=== PATIENT | male | born 1935 | race Caucasian/White ===

== ENCOUNTER 2017-10-15 11:53 | Emergency (ER) | payer MEDICARE, BC ==
[2017-10-15] MEDS ORDERED: MINERAL OIL 133 ML ENEMA RECTAL STA (13:42)
[2017-10-15] MEDS ORDERED: MAGNESIUM CITRATE 296 ML BOTTLE PO ONE (13:43)
[2017-10-15] MEDS ORDERED: DOCUSATE 100 MG CAP PO STA (13:43)
--- NOTE | 2017-10-15 13:47 | ED ---
Abdominal Pain HPI - General Chief Complaint: Abdominal Pain Stated Complaint: CONSTIPATION Time Seen by Provider: 10/15/17 13:37 Source: patient Mode of arrival: wheelchair Limitations: no limitations - History of Present Illness Initial Comments: This 81-year-old white male presents with a complaint of constipation. He states that he has not had a bowel movement in the past one week. He was discharged from the hospital approximately one week after being admitted for a urinary tract infection. He states that he is only passed a small martha of stool since that time. He has tried some Senokot without relief. He also tried a suppository without relief. He complains of pain in his perirectal area. He denies any abdominal pain. He has not been eating as much due to the constipation. He denies any fever, chills, nausea, vomiting. No other complaints or modifying factors. - Related Data Home Medications Medication Instructions Recorded Confirmed Levothyroxine Sodium [Synthroid] 100 mcg PO DAILY 02/21/15 10/15/17 Hydrocortisone [Cortef] 10 mg PO DAILY@1400 07/27/17 10/15/17 Hydrocortisone [Cortef] 20 mg PO QAM 07/27/17 10/15/17 Cranberry Fruit Concentrate 450 mg PO TID 08/28/17 10/15/17 [Cranberry] L.acidoph,Paracasei, B.lactis 1 cap PO DAILY 08/28/17 10/15/17 [Probiotic] Allergies Allergy/AdvReac Type Severity Reaction Status Date / Time No Known Allergies Allergy Verified 10/15/17 14:09 Review of Systems ROS Statement: Those systems with pertinent positive or pertinent negative responses have been documented in the HPI. ROS Other: All systems not noted in ROS Statement are negative. Past Medical History Past Medical History: Cancer, Thyroid Disorder Additional Past Medical History / Comment(s): prostate CA, hypothyroidism. prostate cancer dx 40yrs ago. History of Any Multi-Drug Resistant Organisms: None Reported, Other MDRO Past Surgical History: No Surgical Hx Reported Past Anesthesia/Blood Transfusion Reactions: No Reported Reaction Past Psychological History: No Psychological Hx Reported Smoking Status: Former smoker Past Alcohol Use History: None Reported Past Drug Use History: None Reported - Past Family History Father Family Medical History: Cancer Additional Family Medical History / Comment(s): Colon CA, at 74. Mother Family Medical History: No Reported History, CVA/TIA General Exam - General Exam Comments Initial Comments: GENERAL: The patient is well nourished and well hydrated. VITAL SIGNS: Heart rate, blood pressure, respiratory rate reviewed as recorded in nurse's notes. EYES: Pupils are round and reactive. Extraocular movements are intact. No conjunctival / lid redness or swelling. ENT: No external evidence of injury, swelling, or ecchymosis. Airway is patent. Throat is clear. NECK: Nontender. No swelling or evidence of injury. No subcutaneous emphysema. Trachea is midline. No thyroid mass. HEART: Regular rate and rhythm. Good peripheral pulses. LUNGS/CHEST: Breath sounds clear and equal bilaterally. No rales, rhonchi, or wheezes. No ecchymosis, subcutaneous emphysema, or tenderness. ABDOMEN: Abdomen soft without tenderness. No palpable masses or organomegaly. No peritoneal signs. No abdominal wall swelling or ecchymosis. EXTREMITIES: No extremity tenderness. Normal muscle tone and function. No thoracolumbar tenderness. NEUROLOGIC: Sensation is grossly intact. Cranial nerve exam reveals face is symmetrical, tongue is midline, speech is clear. SKIN: No abrasions or ecchymosis is noted. No induration or masses noted. PSYCHIATRIC: Alert and oriented. Appropriate behavior and judgment. Limitations: no limitations Course Vital Signs 10/15/17 12:08 Temperature 97.8 F Pulse Rate 69 Respiratory 18 Rate Blood Pressure 107/55 O2 Sat by Pulse 95 Oximetry Medical Decision Making - Medical Decision Making The patient was seen and examined. All diagnostics were reviewed. He did receive some magnesium citrate, and Colace orally as well as mineral oil enema. The x-ray showed significant evidence of constipation. The patient did not have any production of stool initially and therefore he was disimpacted by myself. A moderate amount of stool was removed. He also received a milk of molasses enema and then passed a large bowel movement and feels remarkably better. He is counseled regarding constipation in detail and leaves in no identifiable distress. Disposition Clinical Impression: Constipation Disposition: HOME SELF-CARE Condition: Good Instructions: Constipation (ED), High Fiber Diet (ED) Additional Instructions: Please use Metamucil and MiraLAX daily. Referrals: Vanessa Oneill MD [Primary Care Provider] - 1-2 days Time of Disposition: 17:07
--- NOTE | 2017-10-15 14:40 | XR ---
EXAMINATION TYPE: XR KUB DATE OF EXAM: 10/15/2017 COMPARISON: 10/02/2017 HISTORY: Constipation TECHNIQUE: One view abdominal series FINDINGS: The osseous structures are intact. The bowel gas pattern is nonspecific. Air is seen through the lar ge and small bowel loops in a nonspecific pattern with a single prominent small bowel loop in the rig ht abdomen. Arthropathy of the hips noted. Sclerosis of the pubic symphysis and degenerative change of the spine. Retained fecal debris throughout the colon. IMPRESSION: 1. Nonspecific abdomen. Retained fecal debris throughout the colon, correlate for constipation. Sing le prominent small bowel loop in the right abdomen may been the basis of a localized ileus or enterit is. Partial obstruction not entirely excluded correlate clinically.
[2017-10-15 17:22] VITALS: BP 109/59; PULSE 78; RESP 16; TEMP 98
[2017-10-15] MEDS ORDERED: ONDANSETRON 4 MG/2 ML VIAL IVP STA (17:40)
[2017-10-15] MEDS ORDERED: SODIUM CHLORIDE 0.9% 500 ML IV STA (17:40)
[2017-10-15] MEDS ORDERED: SODIUM CHLORIDE 0.9% 1,000 ML IV STA (17:40)
[2017-10-15] MEDS ORDERED: ONDANSETRON 4 MG ODT STARTER PACK 2 TAB BTL PO STA (18:02)
== END 2017-10-15 18:16 | disposition home or self-care (01) ==
LOC: EC 11:53
DX: K59.00 Constipation, unspecified (principal); R11.2 Nausea with vomiting, unspecified; E03.9 Hypothyroidism, unspecified; Z85.46 Personal history of malignant neoplasm of prostate; Z87.891 Personal history of nicotine dependence; Z79.899 Other long term (current) drug therapy
CPT/HCPCS: 74018; 99284; S0119

== ENCOUNTER → 2017-12-07 | Outpatient (CLI) | payer MEDICARE, BC ==
--- NOTE | 2017-12-07 15:35 | US ---
EXAMINATION TYPE: US kidneys/renal and bladder DATE OF EXAM: 12/07/2017 COMPARISON: US 10/01/2017, CT 10/02/2017 CLINICAL HISTORY: R93.4 Abnormal findings on diagnostic imaging of. History of hydronephrosis EXAM MEASUREMENTS: Right Kidney: 10.2 x 5.5 x 4.9 cm Left Kidney: 11.2 x 5.3 x 4.6 cm Right Kidney: No hydronephrosis or masses seen Left Kidney: Mild amount of hydronephrosis visualized. Cystic area visualized measuring 0.6 cm. This appeared simple on the previous examination. Hydronephrosis was present previously and appears unchan ged. Bladder: wnl as visualized, not fully distended Bilateral Jets seen: No, bladder not distended IMPRESSION: 1. Mild stable left hydronephrosis. 2. Subcentimeter cortical renal cyst too small to classify as simple.
== END | disposition home or self-care (01) ==
LOC: RADUSWWP 13:53
PROVIDERS: ATTEND Urology
DX: N13.30 Unspecified hydronephrosis (principal); N28.1 Cyst of kidney, acquired
CPT/HCPCS: 76770

== ENCOUNTER → 2017-12-18 | Outpatient (CLI) | payer MEDICARE, BC ==
--- NOTE | 2017-12-18 14:39 | CT ---
EXAMINATION TYPE: CT abdomen pelvis wo con DATE OF EXAM: 12/18/2017 COMPARISON: 10/02/2017 and 08/05/2016. HISTORY: Patient complains of difficulty urinating. CT DLP: 744.3 mGycm Automated exposure control for dose reduction was used. TECHNIQUE: Helical acquisition of images was performed from the lung bases through the pelvis. FINDINGS: LUNG BASES: Calcific pleural plaquing is seen along the right hemidiaphragm at the lung base. LIVER/GB: The liver is diffusely hypoattenuated approaching criteria for hepatic steatosis. No focal hepatic lesion is identified. Gallbladder is unremarkable. PANCREAS: Pancreas demonstrates moderate pancreatic parenchymal atrophy with no ductal dilatation and a solitary punctate calcification of the tail possibly from prior pancreatitis. SPLEEN: No significant abnormality is seen. ADRENALS: No nodularity or thickening. KIDNEYS: There is a left-sided extrarenal pelvis. No evidence of hydronephrosis. Mild nonspecific per inephric fat stranding is unchanged from the prior. FREE AIR: No free air is visualized ADENOPATHY: No greater than 1 cm short axis lymph nodes are seen within the abdomen or pelvis. REPRODUCTIVE ORGANS: Prostate gland is significantly atrophic or surgically absent despite nonvisuali zation of surgical clips in the pelvis. URINARY BLADDER: The previously seen urinary bladder wall thickening and surrounding inflammatory ch juan hip resolved in the interim. Urinary bladder is incompletely distended. OSSEOUS STRUCTURES: There is redemonstration of grade 2 anterolisthesis of L5 on S1 secondary to cole ateral pars intraarticularis defects. Moderate multilevel degenerative changes of the visualized thor acolumbar spine are noted. There is also sclerosis of the left pubic bone and bilateral iliac bones a t the sacroiliac joints as well as the left sacroiliac that are all nonspecific findings. BOWEL: There are a few scattered colonic diverticula without pericolonic fat stranding. No evidence of dilated bowel to suggest obstruction. Appendix is air-filled and within normal limits of size. Sma ll bowel is also nondilated with no focal thickening.. OTHER: Moderate calcific atheromatous changes of the abdominal aorta and its branches are identified. IMPRESSION: 1. RESOLUTION OF THE PREVIOUSLY SEEN URINARY BLADDER WALL THICKENING AND SURROUNDING INFLAMMATORY RUPALI NGE. NO DISCRETE URINARY BLADDER ABNORMALITY. NO HYDRONEPHROSIS, URETERAL CALCULUS OR NEPHROLITHIASIS . NO LOCAL ADENOPATHY. 2. NONSPECIFIC SCLEROTIC LESIONS OF THE LEFT PUBIC BONE AND SACROILIAC JOINTS ARE FAVORED TO BE DEGEN ERATIVE IN NATURE THEY ARE UNCHANGED FROM THE EXAM OF 08/05/2016.
== END | disposition home or self-care (01) ==
LOC: RADCTMAIN 12:21
PROVIDERS: ATTEND Urology
DX: N32.89 Other specified disorders of bladder (principal)
CPT/HCPCS: 74176

== ENCOUNTER 2018-02-14 15:13 | Emergency (ER) | payer MEDICARE, BC ==
[2018-02-14 15:21] VITALS: RESP 18; TEMP 97.7
[2018-02-14] MEDS ORDERED: SODIUM CHLORIDE 0.9% 1,000 ML IV STA (16:02)
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
[2018-02-14 16:56] LABS: Basophils % (A) 0 %; Eosinophils # (A) 0.1 k/uL (0-0.7); Eosinophils % (A) 2 %; HCT 36.5 % (39.0-53.0); HGB 12.3 gm/dL (13.0-17.5); Lymphocytes # (A) 1.3 k/uL (1.0-4.8); Lymphocytes % (A) 21 %; MCH 32.7 pg (25.0-35.0); MCHC 33.6 g/dL (31.0-37.0); MCV 97.3 fL (80.0-100.0); Mean Platelet Volume 6.5; Monocytes # (A) 0.4 k/uL (0-1.0); Monocytes % (A) 6 %; Neutrophils # (A) 4.3 k/uL (1.3-7.7); Neutrophils % (A) 69 %; Platelet Count 187 k/uL (150-450); RBC 3.75 m/uL (4.30-5.90); RDW 12.9 % (11.5-15.5); WBC 6.3 k/uL (3.8-10.6)
[2018-02-14 17:00] LABS: Appearance,Urine Cloudy (Clear); Bilirubin,Urine Negative (Negative); Blood,Urine Moderate (Negative); Color,Urine Yellow; Glucose,Urine (UA) Negative (Negative); Ketones,Urine Negative (Negative); Leukocyte Esterase,Urine Large (Negative); Mucus,Urine Rare /hpf; Nitrite,Urine Negative (Negative); PH, Urine 5.5 (5.0-8.0); Protein,Urine Trace (Negative); RBC,Urine 47 /hpf (0-5); Specific Gravity,Urine 1.011 (1.001-1.035); Urobilinogen,Urine <2.0 mg/dL (<2.0); WBC,Urine >182 /hpf (0-5)
[2018-02-14 17:06] LABS: Albumin 3.7 g/dL (3.5-5.0); Calcium 8.6 mg/dL (8.4-10.2); Magnesium 2.1 mg/dL (1.6-2.3); Phosphorus 3.3 mg/dL (2.5-4.5); Potassium 4.7 mmol/L (3.5-5.1); Total Bilirubin 0.2 mg/dL (0.2-1.3); Total Protein 6.4 g/dL (6.3-8.2)
[2018-02-14 17:09] LABS: D-Dimer 0.54 mg/L FEU (<0.60); Partial Thromboplastin Time 24.4 sec (22.0-30.0); Prothrombin Time 10.1 sec (9.0-12.0)
[2018-02-14 17:15] LABS: Creatine Kinase <20 U/L (55-170)
[2018-02-14 17:28] LABS: Creatine Kinase MB <0.2 ng/mL (0.0-2.4); Troponin I <0.012 ng/mL (0.000-0.034)
[2018-02-14] MEDS ORDERED: cefTRIAXone 2,000 MG in SODIUM CHLORIDE 0.9% 100 ML IVPB STA (17:51)
[2018-02-14] MEDS ORDERED: cefTRIAXone IN SWFI 2,000 MG/20 ML SYRINGE IVP STA (17:52)
[2018-02-14 19:06] VITALS: BP 140/63; PULSE 61
== END 2018-02-14 19:04 | disposition home or self-care (01) ==
LOC: EC 15:13
DX: N39.0 Urinary tract infection, site not specified (principal); R55 Syncope and collapse; E86.0 Dehydration; E03.9 Hypothyroidism, unspecified; Z87.891 Personal history of nicotine dependence; Z79.52 Long term (current) use of systemic steroids; Z79.899 Other long term (current) drug therapy; Z82.3 Family history of stroke
CPT/HCPCS: 36415; 93005; 85379; 80053; 82550; 82553; 83735; 84100; 84484; 85025; 85610; 85730; 81001; 87086; 99284; 96374; 96361; J0696

== ENCOUNTER 2018-03-18 19:22 | Inpatient (IN) | payer MEDICARE, BC ==
--- NOTE | 2018-03-18 20:07 | ED ---
General Adult HPI - General Chief complaint: Recheck/Abnormal Lab/Rx Stated complaint: weakness/fever Time Seen by Provider: 03/18/18 19:50 Source: patient, family, EMS, RN notes reviewed Mode of arrival: EMS Limitations: no limitations - History of Present Illness Initial comments: This is an 82-year-old male with history of recurrent UTIs who presents to the emergency department with chief complaint of fever. Patient is accompanied by his who contributes to history. states that throughout the day today patient was drowsy and slept in his chair for most of the day. She states that she got him up to use the bathroom and he seemed weak. He then had 1 episode of vomiting. She states that she checked his temperature and it was 101.7. She reports a history of chronic urinary tract infection. Patient is seen by Dr. Paredes and Dr. Akins for this. Patient's previous urine culture grew pseudomonas for which the doctors did not recommend oral antibiotic treatment. Patient has not been treated for the urinary tract infection with antibiotics for quite some time. Patient states that he has chronic urinating difficulties and must self cath twice a day. At this time, patient denies any symptoms. Tonight's chest pain shortness of breath, abdominal pain, nausea or vomiting, diarrhea or constipation, weakness or numbness. - Related Data Home Medications Medication Instructions Recorded Confirmed Hydrocortisone [Cortef] 10 mg PO DAILY@1400 07/27/17 03/18/18 Hydrocortisone [Cortef] 20 mg PO QAM 07/27/17 03/18/18 Cranberry Fruit Concentrate 1,350 mg PO DAILY 08/28/17 03/18/18 [Cranberry] Levothyroxine Sodium [Synthroid] 125 mcg PO DAILY 03/18/18 03/18/18 Methenamine/Sodium Salicylate 1 tab PO DAILY 03/18/18 03/18/18 [Cystex Tablet] Vit C/E/Zn/Coppr/Lutein/Zeaxan 1 cap PO BID 03/18/18 03/18/18 [Preservision Areds 2 Softgel] Allergies Allergy/AdvReac Type Severity Reaction Status Date / Time No Known Allergies Allergy Verified 03/18/18 19:55 Review of Systems ROS Statement: Those systems with pertinent positive or pertinent negative responses have been documented in the HPI. ROS Other: All systems not noted in ROS Statement are negative. Past Medical History Past Medical History: Cancer, Thyroid Disorder Additional Past Medical History / Comment(s): prostate CA, hypothyroidism. prostate cancer dx 40yrs ago. History of Any Multi-Drug Resistant Organisms: Other MDRO Past Surgical History: No Surgical Hx Reported Past Anesthesia/Blood Transfusion Reactions: No Reported Reaction Past Psychological History: No Psychological Hx Reported Smoking Status: Former smoker Past Alcohol Use History: None Reported Past Drug Use History: None Reported - Past Family History Father Family Medical History: Cancer Additional Family Medical History / Comment(s): Colon CA, at 74. Mother Family Medical History: No Reported History, CVA/TIA General Exam - General Exam Comments Initial Comments: General: Awake and alert, well-developed; in no apparent distress. is at bedside. HEENT: Head atraumatic, normocephalic. Pupils are equal, round and reactive to light. Extraocular movements intact. Oropharynx moist without erythema or exudate. Neck: Supple. Normal ROM. Cardiovascular: Regular rate and rhythm. No murmurs, rubs or gallops. Chest symmetrical. Respiratory: Lungs clear to auscultation bilaterally. No wheezes, rales or rhonchi. Normal respiratory effort with no use of accessory muscles. Abdomen: Soft, non-tender, non-distended. No rigidity, rebound or guarding. Normal bowel sounds in all 4 quadrants. Musculoskeletal: Normal ROM, no tenderness bilateral upper and lower extremities. Ambulating normally. Skin: [place], warm and dry without rashes or lesions. Neurological: Alert and oriented x3. CN II-XII grossly intact. Speech is fluent and answers are appropriate. No focal neuro deficits. Psychiatric: Normal mood and affect. No overt signs of depression or anxiety noted. Limitations: no limitations Course Vital Signs 03/18/18 03/18/18 03/18/18 19:27 20:46 22:41 Temperature 99.5 F 101.6 F H 100.1 F H Pulse Rate 79 74 70 Respiratory 18 18 18 Rate Blood Pressure 145/65 150/63 117/55 O2 Sat by Pulse 95 93 L 94 L Oximetry Medical Decision Making - Medical Decision Making This is an 82-year-old male with history of recurrent, chronic urinary tract infections who presents to the emergency department with chief complaint of fever. Patient spiked a fever 102 today. He does have a history of prostate cancer and does perform self caths twice daily. CBC and CMP are unremarkable. UA revealed many bacteria, high white blood cell and white blood cell count. Patient started on Zosyn as this was shown to be susceptible to pseudomonas that was cultured in patient's previous urine culture in February. Patient is in agreement for admission. He will be admitted to Dr. Gunn with consult Dr. Akins. Vital signs are stable and patient is in acute distress. - Lab Data Result diagrams: 03/18/18 20:32 03/18/18 20:32 Lab Results 03/18/18 03/18/18 03/18/18 Range/Units 20:32 20:32 20:32 WBC 8.7 (3.8-10.6) k/uL RBC 3.61 L (4.30-5.90) m/uL Hgb 11.7 L (13.0-17.5) gm/dL Hct 34.6 L (39.0-53.0) % MCV 95.9 (80.0-100.0) fL MCH 32.6 (25.0-35.0) pg MCHC 34.0 (31.0-37.0) g/dL RDW 12.9 (11.5-15.5) % Plt Count 159 (150-450) k/uL Neutrophils % 76 % Lymphocytes % 16 % Monocytes % 7 % Eosinophils % 1 % Basophils % 0 % Neutrophils # 6.5 (1.3-7.7) k/uL Lymphocytes # 1.4 (1.0-4.8) k/uL Monocytes # 0.6 (0-1.0) k/uL Eosinophils # 0.1 (0-0.7) k/uL Basophils # 0.0 (0-0.2) k/uL Sodium 136 L (137-145) mmol/L Potassium 4.7 (3.5-5.1) mmol/L Chloride 106 (98-107) mmol/L Carbon Dioxide 24 (22-30) mmol/L Anion Gap 6 mmol/L BUN 21 H (9-20) mg/dL Creatinine 1.00 (0.66-1.25) mg/dL Est GFR (CKD-EPI)AfAm 80 (>60 ml/min/1.73 sqM) Est GFR (CKD-EPI)NonAf 69 (>60 ml/min/1.73 sqM) Glucose 101 H (74-99) mg/dL Plasma Lactic Acid [place] 1.1 (0.7-2.0) mmol/L Calcium 8.2 L (8.4-10.2) mg/dL Total Bilirubin 0.2 (0.2-1.3) mg/dL AST 19 (17-59) U/L ALT 30 (21-72) U/L Alkaline Phosphatase 59 (38-126) U/L Total Protein 6.2 L (6.3-8.2) g/dL Albumin 3.4 L (3.5-5.0) g/dL Urine Color Urine Appearance (Clear) Urine pH (5.0-8.0) Ur Specific [place] (1.001-1.035) Urine Protein (Negative) Urine Glucose (UA) (Negative) Urine Ketones (Negative) Urine Blood (Negative) Urine Nitrite (Negative) Urine Bilirubin (Negative) Urine Urobilinogen (<2.0) mg/dL Ur Leukocyte Esterase (Negative) Urine RBC (0-5) /hpf Urine WBC (0-5) /hpf Urine WBC Clumps (None) /hpf Ur Squamous Epith Cells (0-4) /hpf Urine Bacteria (None) /hpf Urine Yeast (Budding) (None) /hpf 03/18/18 Range/Units 21:34 WBC (3.8-10.6) k/uL RBC (4.30-5.90) m/uL Hgb (13.0-17.5) gm/dL Hct (39.0-53.0) % MCV (80.0-100.0) fL MCH (25.0-35.0) pg MCHC (31.0-37.0) g/dL RDW (11.5-15.5) % Plt Count (150-450) k/uL Neutrophils % % Lymphocytes % % Monocytes % % Eosinophils % % Basophils % % Neutrophils # (1.3-7.7) k/uL Lymphocytes # (1.0-4.8) k/uL Monocytes # (0-1.0) k/uL Eosinophils # (0-0.7) k/uL Basophils # (0-0.2) k/uL Sodium (137-145) mmol/L Potassium (3.5-5.1) mmol/L Chloride (98-107) mmol/L Carbon Dioxide (22-30) mmol/L Anion Gap mmol/L BUN (9-20) mg/dL Creatinine (0.66-1.25) mg/dL Est GFR (CKD-EPI)AfAm (>60 ml/min/1.73 sqM) Est GFR (CKD-EPI)NonAf (>60 ml/min/1.73 sqM) Glucose (74-99) mg/dL Plasma Lactic Acid [place] (0.7-2.0) mmol/L Calcium (8.4-10.2) mg/dL Total Bilirubin (0.2-1.3) mg/dL AST (17-59) U/L ALT (21-72) U/L Alkaline Phosphatase (38-126) U/L Total Protein (6.3-8.2) g/dL Albumin (3.5-5.0) g/dL Urine Color Light Yellow Urine Appearance Cloudy (Clear) Urine pH 5.5 (5.0-8.0) Ur Specific [place] 1.011 (1.001-1.035) Urine Protein Trace H (Negative) Urine Glucose (UA) Negative (Negative) Urine Ketones Negative (Negative) Urine Blood Moderate H (Negative) Urine Nitrite Positive (Negative) Urine Bilirubin Negative (Negative) Urine Urobilinogen <2.0 (<2.0) mg/dL Ur Leukocyte Esterase Large H (Negative) Urine RBC 9 H (0-5) /hpf Urine WBC >182 H (0-5) /hpf Urine WBC Clumps Many H (None) /hpf Ur Squamous Epith Cells 5 H (0-4) /hpf Urine Bacteria Many H (None) /hpf Urine Yeast (Budding) Occasional H (None) /hpf - Radiology Data Radiology results: report reviewed Chest x-ray impression: No active cardiopulmonary disease. No change. Normal heart. Disposition Clinical Impression: Urinary tract infection Disposition: ADMITTED IP TO THIS HOSP Condition: Fair Is patient prescribed a controlled substance at d/c from ED?: No Time of Disposition: 22:25
[2018-03-18] MEDS ORDERED: ACETAMINOPHEN TAB 500 MG TAB PO STA (20:53)
[2018-03-18 21:05] LABS: Albumin 3.4 g/dL (3.5-5.0); Calcium 8.2 mg/dL (8.4-10.2); Potassium 4.7 mmol/L (3.5-5.1); Total Bilirubin 0.2 mg/dL (0.2-1.3); Total Protein 6.2 g/dL (6.3-8.2)
[2018-03-18] MEDS ORDERED: LIDOCAINE URO-JET JELLY 2% 5 ML KIT URETHRAL ONE (21:16)
[2018-03-18 21:20] LABS: Basophils % (A) 0 %; Eosinophils # (A) 0.1 k/uL (0-0.7); Eosinophils % (A) 1 %; HCT 34.6 % (39.0-53.0); HGB 11.7 gm/dL (13.0-17.5); Lymphocytes # (A) 1.4 k/uL (1.0-4.8); Lymphocytes % (A) 16 %; MCH 32.6 pg (25.0-35.0); MCV 95.9 fL (80.0-100.0); Mean Platelet Volume 6.4; Monocytes # (A) 0.6 k/uL (0-1.0); Monocytes % (A) 7 %; Neutrophils # (A) 6.5 k/uL (1.3-7.7); Neutrophils % (A) 76 %; Platelet Count 159 k/uL (150-450); RBC 3.61 m/uL (4.30-5.90); RDW 12.9 % (11.5-15.5); WBC 8.7 k/uL (3.8-10.6)
--- NOTE | 2018-03-18 21:32 | XR ---
EXAMINATION TYPE: XR chest 2V DATE OF EXAM: 03/18/2018 COMPARISON: 09/29/2017 HISTORY: Fever TECHNIQUE: Frontal and lateral views of the chest are obtained. FINDINGS: There is no heart failure nor confluent pneumonic infiltrate. Heart size is normal. Bony t horax is intact. There is no pleural effusion. IMPRESSION: No active cardiopulmonary disease. No change. Normal heart.
[2018-03-18 21:50] LABS: Appearance,Urine Cloudy (Clear); Bacteria,Urine Many /hpf; Bilirubin,Urine Negative (Negative); Blood,Urine Moderate (Negative); Budding Yeast,Urine Occasional /hpf; Color,Urine Light Yellow; Glucose,Urine (UA) Negative (Negative); Ketones,Urine Negative (Negative); Leukocyte Esterase,Urine Large (Negative); Nitrite,Urine Positive (Negative); PH, Urine 5.5 (5.0-8.0); Protein,Urine Trace (Negative); RBC,Urine 9 /hpf (0-5); Specific Gravity,Urine 1.011 (1.001-1.035); Squamous Epithelial Cell,Urine 5 /hpf (0-4); Urobilinogen,Urine <2.0 mg/dL (<2.0); WBC,Urine >182 /hpf (0-5)
[2018-03-18] MEDS ORDERED: PIPERACILLIN-TAZOBACTAM 3.375 GM in DEXTROSE/WATER 1 50ML.BAG IVPB STA (21:59)
[2018-03-18] MEDS ORDERED: SODIUM CHLORIDE 0.9% 1,000 ML IV STA (22:08)
[2018-03-18] MEDS ORDERED: MORPHINE SULFATE 4 MG/ML SYRINGE IV PRN (22:25)
[2018-03-18] MEDS ORDERED: ACETAMINOPHEN TAB 325 MG TAB PO PRN (22:25)
[2018-03-18] MEDS ORDERED: NALOXONE 0.4 MG/ML 1 ML VIAL IV PRN (22:25)
[2018-03-18] MEDS ORDERED: IBUPROFEN 400 MG TAB PO PRN (22:25)
[2018-03-18] MEDS: SODIUM CHLORIDE 0.9% 1,000 ML IV SCH (22:40)
[2018-03-19] MEDS: PIPERACILLIN-TAZOBACTAM 3.375 GM in DEXTROSE/WATER 1 50ML.BAG IVPB SCH ×2 (08:00→15:57)
[2018-03-19] MEDS ORDERED: HYDROCORTISONE 20 MG TAB PO SCH (09:00)
[2018-03-19] MEDS ORDERED: HYDROCORTISONE 10 MG TAB PO SCH ×2 (09:00→14:00)
[2018-03-19] MEDS: LEVOTHYROXINE 125 MCG TAB PO SCH (09:00)
--- NOTE | 2018-03-19 12:23 | P.CONS ---
History of Present Illness - Reason for Consult Consult date: 03/19/18 UTI, fever - History of Present Illness This is an 82-year-old male patient well known to ID service as he has been treated for recurrent Pseudomonas urinary tract infections and is also under the care of Dr. Downey with prior history of prostate cancer with radiation therapy. Patient's gait casts twice daily and he denies having any problems with this. Yesterday started having a fever up to 101.7 and he was more drowsy. His passed on that patient slept in a chair all day. He vomited 1 at home. He presented to [facility] emergency center with temperature max of 101.6, white count of 8.7, albumin was 3.4, creatinine 1, lactic acid 1.1. Urinalysis was cloudy, blood moderate, leukoesterase large, WBC 182, comes many, squamous cell 5, bacteria many, budding yeast occasional. Blood and urine cultures aren't progress. Patient was started on Zosyn and plan to admit to the [facility] floor. Patient is currently stationed in the hallway in the ER waiting for a bed. The patient states that his nausea and vomiting have resolved. He denies having any dysuria sensation. He had attempted self-catheterization here but was unsuccessful as he states it's different equipment the knee just 2. Black catheter has been placed and is draining cloudy urine was large amount of sediment. Review of Systems Constitutional: Reports fatigue, Reports fever, Reports lethargy, Reports malaise, Reports poor appetite, Reports weakness Ears, nose, mouth and throat: Denies dental pain, Denies mouth pain, Denies sore throat, Denies vertigo Cardiovascular: Denies decreased exercise tolerance, Denies dyspnea on exertion , Denies leg edema, Denies lightheadedness, Denies syncope Respiratory: Denies cough, Denies dyspnea, Denies excessive sputum, Denies hemoptysis, Denies home oxygen, Denies wheezing Gastrointestinal: Reports loss of appetite, Reports nausea, Reports vomiting, Denies abdominal pain, Denies diarrhea Genitourinary: Reports urinary retention, Denies dysuria, Denies flank pain, Denies urinary frequency Past Medical History Past Medical History: Cancer, Eye Disorder, Thyroid Disorder Additional Past Medical History / Comment(s): Prostate CA with radiation/ urinary retention/self caths at 9pm and midnight and voids during daytime hours / occasional incontinence of urine, frequent UTIs and has confusion with UTIs, stable pituitary mass, hyponatremia, chronic anemia, bilateral macular degeneration, hypothyroidism, pt's legs are cold all the time. History of Any Multi-Drug Resistant Organisms: Other MDRO Past Surgical History: Adenoidectomy, Tonsillectomy Additional Past Surgical History / Comment(s): EGD/colonoscopy. Past Anesthesia/Blood Transfusion Reactions: No Reported Reaction Smoking Status: Former smoker Additional Past Alcohol Use History / Comment(s): Patient is and lives in his family home. 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 No international travel. No current animal exposures. - Past Family History Father Family Medical History: Cancer Additional Family Medical History / Comment(s): Colon CA, at 74. Mother Family Medical History: No Reported History, CVA/TIA Medications and Allergies Home Medications Medication Instructions Recorded Confirmed Type Hydrocortisone [Cortef] 10 mg PO DAILY@1400 07/27/17 03/18/18 History Hydrocortisone [Cortef] 20 mg PO QAM 07/27/17 03/18/18 History Cranberry Fruit Concentrate 1,350 mg PO DAILY 08/28/17 03/18/18 History [Cranberry] Levothyroxine Sodium [Synthroid] 125 mcg PO DAILY 03/18/18 03/18/18 History Methenamine/Sodium Salicylate 1 tab PO DAILY 03/18/18 03/18/18 History [Cystex Tablet] Vit C/E/Zn/Coppr/Lutein/Zeaxan 1 cap PO BID 03/18/18 03/18/18 History [Preservision Areds 2 Softgel] Allergies Allergy/AdvReac Type Severity Reaction Status Date / Time No Known Allergies Allergy Verified 03/18/18 19:55 Physical Exam Vitals: Vital Signs Temp Pulse Resp BP Pulse Ox 03/19/18 06:48 98.6 F 71 17 147/80 96 03/19/18 00:15 98.2 F 67 18 112/58 96 03/18/18 22:41 100.1 F H 70 18 117/55 94 L 03/18/18 20:46 101.6 F H 74 18 150/63 93 L 03/18/18 19:27 99.5 F 79 18 145/65 95 Intake and Output 03/18/18 03/19/18 03/19/18 22:59 06:59 14:59 Output Total 200 Balance -200 Output: Urine 200 Coude 200 Other: Voiding Method Diaper Incontinent Weight 81.647 kg Gen: This is an 82-year-old male patient. He is on a stretcher in the ER hallway appears to be comfortable. Patient jokingly states that he wanted to go home. Patient is known to have some very mild confusion. HEENT: Head is atraumatic, normocephalic. Pupils equal, round. Sclerae is anicteric. Conjunctiva slightly dry. No thrush noted. NECK: Supple. No JVD. No lymphadenopathy. No thyromegaly. LUNGS: Clear to auscultation. No wheezes or rhonchi. No intercostal retractions. HEART: Regular rate and rhythm. No murmur. ABDOMEN: Soft. Bowel sounds are present. No masses. No tenderness. No suprapubic tenderness. Black catheter draining cloudy gregoria urine with large amount of sediment. EXTREMITIES: No pedal edema. No calf tenderness. Dorsalis pedis is +2 bilaterally. NEUROLOGICAL: Patient is awake, alert and oriented x3. Cranial nerves 2 through 12 are grossly intact. Results Results: Laboratory Results WBC 8.7 k/uL (3.8-10.6) 03/18/18 20:32 RBC 3.61 m/uL (4.30-5.90) L 03/18/18 20:32 Hgb 11.7 gm/dL (13.0-17.5) L 03/18/18 20:32 Hct 34.6 % (39.0-53.0) L 03/18/18 20:32 MCV 95.9 fL (80.0-100.0) 03/18/18 20:32 MCH 32.6 pg (25.0-35.0) 03/18/18 20:32 MCHC 34.0 g/dL (31.0-37.0) 03/18/18 20:32 RDW 12.9 % (11.5-15.5) 03/18/18 20:32 Plt Count 159 k/uL (150-450) 03/18/18 20:32 Neutrophils % 76 % 03/18/18 20:32 Lymphocytes % 16 % 03/18/18 20:32 Monocytes % 7 % 03/18/18 20:32 Eosinophils % 1 % 03/18/18 20:32 Basophils % 0 % 03/18/18 20:32 Neutrophils # 6.5 k/uL (1.3-7.7) 03/18/18 20:32 Lymphocytes # 1.4 k/uL (1.0-4.8) 03/18/18 20:32 Monocytes # 0.6 k/uL (0-1.0) 03/18/18 20:32 Eosinophils # 0.1 k/uL (0-0.7) 03/18/18 20:32 Basophils # 0.0 k/uL (0-0.2) 03/18/18 20:32 Sodium 136 mmol/L (137-145) L 03/18/18 20:32 Potassium 4.7 mmol/L (3.5-5.1) 03/18/18 20:32 Chloride 106 mmol/L (98-107) 03/18/18 20:32 Carbon Dioxide 24 mmol/L (22-30) 03/18/18 20:32 Anion Gap 6 mmol/L 03/18/18 20:32 BUN 21 mg/dL (9-20) H 03/18/18 20:32 Creatinine 1.00 mg/dL (0.66-1.25) 03/18/18 20:32 Est GFR (CKD-EPI)AfAm 80 (>60 ml/min/1.73 sqM) 03/18/18 20:32 Est GFR (CKD-EPI)NonAf 69 (>60 ml/min/1.73 sqM) 03/18/18 20:32 Glucose 101 mg/dL (74-99) H 03/18/18 20:32 Plasma Lactic Acid [place] 1.1 mmol/L (0.7-2.0) 03/18/18 20:32 Calcium 8.2 mg/dL (8.4-10.2) L 03/18/18 20:32 Total Bilirubin 0.2 mg/dL (0.2-1.3) 03/18/18 20:32 AST 19 U/L (17-59) 03/18/18 20:32 ALT 30 U/L (21-72) 03/18/18 20:32 Alkaline Phosphatase 59 U/L (38-126) 03/18/18 20:32 Total Protein 6.2 g/dL (6.3-8.2) L 03/18/18 20:32 Albumin 3.4 g/dL (3.5-5.0) L 03/18/18 20:32 Urine Color Light Yellow 03/18/18 21:34 Urine Appearance Cloudy (Clear) 03/18/18 21:34 Urine pH 5.5 (5.0-8.0) 03/18/18 21:34 Ur Specific [place] 1.011 (1.001-1.035) 03/18/18 21:34 Urine Protein Trace (Negative) H 03/18/18 21:34 Urine Glucose (UA) Negative (Negative) 03/18/18 21:34 Urine Ketones Negative (Negative) 03/18/18 21:34 Urine Blood Moderate (Negative) H 03/18/18 21:34 Urine Nitrite Positive (Negative) 03/18/18 21:34 Urine Bilirubin Negative (Negative) 03/18/18 21:34 Urine Urobilinogen <2.0 mg/dL (<2.0) 03/18/18 21:34 Ur Leukocyte Esterase Large (Negative) H 03/18/18 21:34 Urine RBC 9 /hpf (0-5) H 03/18/18 21:34 Urine WBC >182 /hpf (0-5) H 03/18/18 21:34 Urine WBC Clumps Many /hpf (None) H 03/18/18 21:34 Ur Squamous Epith Cells 5 /hpf (0-4) H 03/18/18 21:34 Urine Bacteria Many /hpf (None) H 03/18/18 21:34 Urine Yeast (Budding) Occasional /hpf (None) H 03/18/18 21:34 CBC & Chem 7: 03/18/18 20:32 03/18/18 20:32 Labs: Abnormal Lab Results - Last 24 Hours (Table) 03/18/18 03/18/18 03/18/18 Range/Units 20:32 20:32 21:34 RBC 3.61 L (4.30-5.90) m/uL Hgb 11.7 L (13.0-17.5) gm/dL Hct 34.6 L (39.0-53.0) % Sodium 136 L (137-145) mmol/L BUN 21 H (9-20) mg/dL Glucose 101 H (74-99) mg/dL Calcium 8.2 L (8.4-10.2) mg/dL Total Protein 6.2 L (6.3-8.2) g/dL Albumin 3.4 L (3.5-5.0) g/dL Urine Protein Trace H (Negative) Urine Blood Moderate H (Negative) Ur Leukocyte Esterase Large H (Negative) Urine RBC 9 H (0-5) /hpf Urine WBC >182 H (0-5) /hpf Urine WBC Clumps Many H (None) /hpf Ur Squamous Epith Cells 5 H (0-4) /hpf Urine Bacteria Many H (None) /hpf Urine Yeast (Budding) Occasional H (None) /hpf Microbiology - Last 24 Hours (Table) 03/18/18 21:34 Urine Culture - Preliminary Urine,Catheterized Assessment and Plan Plan: This is an 82-year-old male patient presented to the hospital with fever, mild metabolic encephalopathy, general malaise and weakness with one episode of emesis most likely symptoms are related to urinary tract infection. Patient is currently on Zosyn which will be altered to ceftazidime. Plan is for outpatient IV antibiotics. Blood and urine culture in progress. Continue supportive care. Further recommendations as patient presses. The above dictated assessment and findings were discussed with Dr. Akins. The impression and plan of care have been directed as dictated. Danyelle Brooks nurse practitioner acting as scribe for Dr. Akins.
[2018-03-19] MEDS: SODIUM CHLORIDE 0.9% 1,000 ML IV SCH (13:23)
[2018-03-19] MEDS: PANTOPRAZOLE 40 MG/10 ML VIAL IVP SCH (13:35)
[2018-03-19] MEDS: VIT A,C & E-LUTEIN-MINERALS 1 EACH TAB PO SCH (13:35)
--- NOTE | 2018-03-19 16:40 | P.HPIM ---
History of Present Illness 83-year-old pleasant gentleman with the history of urinary incontinence urinary retention does do straight catheterization at home multiple hospitalization for Pseudomonas urinary tract infection sensitive to Zosyn and carboplatin at that time came in with symptoms of nausea vomiting. Urine looked significantly abnormal because of which in ER patient was believed to have urinary tract infection and requested hospitalization and admission, Dr. Akins well-known to the patient was consulted. Patient denied any dysuria denied any suprapubic pain denied any fever chills doesn't have any leukocytosis does have significantly elevated white blood cell count in the urine is partially contaminated with the epithelial cells, moderate blood positive nitrate and positive leukocyte esterase. Patient is wishing to be discharged. But unsure whether patient has urinary tract infection that because of which I'll wait for infectious disease evaluation. Review of Systems REVIEW OF SYSTEMS: CONSTITUTIONAL: No fever, no malaise, no fatigue. HEENT: No recent visual problems or hearing problems. Denied any sore throat. CARDIOVASCULAR: No chest pain, orthopnea, PND, no palpitations, no syncope. PULMONARY: No shortness of breath, no cough, no hemoptysis. GASTROINTESTINAL: No diarrhea, NEUROLOGICAL: No headaches, no weakness, no numbness. HEMATOLOGICAL: Denies any bleeding or petechiae. GENITOURINARY: Denies any burning micturition, frequency, or urgency. MUSCULOSKELETAL/RHEUMATOLOGICAL: Denies any joint pain, swelling, or any muscle pain. ENDOCRINE: Denies any polyuria or polydipsia. The rest of the 14-point review of systems is negative. Past Medical History Past Medical History: Cancer, Eye Disorder, Thyroid Disorder Additional Past Medical History / Comment(s): Prostate CA with radiation/ urinary retention/self caths at 9pm and midnight and voids during daytime hours / occasional incontinence of urine, frequent UTIs and has confusion with UTIs, stable pituitary mass, hyponatremia, chronic anemia, bilateral macular degeneration, hypothyroidism, pt's legs are cold all the time. History of Any Multi-Drug Resistant Organisms: Other MDRO Past Surgical History: Adenoidectomy, Tonsillectomy Additional Past Surgical History / Comment(s): EGD/colonoscopy. Past Anesthesia/Blood Transfusion Reactions: No Reported Reaction Smoking Status: Former smoker Additional Past Alcohol Use History / Comment(s): Patient is and lives in his family home. 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 No international travel. No current animal exposures. - Past Family History Father Family Medical History: Cancer Additional Family Medical History / Comment(s): Colon CA, at 74. Mother Family Medical History: No Reported History, CVA/TIA Medications and Allergies Home Medications Medication Instructions Recorded Confirmed Type Hydrocortisone [Cortef] 10 mg PO DAILY@1400 07/27/17 03/18/18 History Hydrocortisone [Cortef] 20 mg PO QAM 07/27/17 03/18/18 History Cranberry Fruit Concentrate 1,350 mg PO DAILY 08/28/17 03/18/18 History [Cranberry] Levothyroxine Sodium [Synthroid] 125 mcg PO DAILY 03/18/18 03/18/18 History Methenamine/Sodium Salicylate 1 tab PO DAILY 03/18/18 03/18/18 History [Cystex Tablet] Vit C/E/Zn/Coppr/Lutein/Zeaxan 1 cap PO BID 03/18/18 03/18/18 History [Preservision Areds 2 Softgel] Allergies Allergy/AdvReac Type Severity Reaction Status Date / Time No Known Allergies Allergy Verified 03/18/18 19:55 Physical Exam Vitals: Vital Signs Temp Pulse Pulse Resp BP BP Pulse Ox 03/19/18 13:48 98.0 F 72 18 126/70 94 L 03/19/18 06:48 98.6 F 71 17 147/80 96 03/19/18 00:15 98.2 F 67 18 112/58 96 03/18/18 22:41 100.1 F H 70 18 117/55 94 L 03/18/18 20:46 101.6 F H 74 18 150/63 93 L 03/18/18 19:27 99.5 F 79 18 145/65 95 Intake and Output 03/19/18 03/19/18 03/19/18 06:59 14:59 22:59 Output Total 1200 200 Balance -1200 -200 Output: Urine 1200 200 Coude 200 200 Other: Voiding Method Diaper Diaper Incontinent Incontinent PHYSICAL EXAMINATION: GENERAL: The patient is alert and oriented x3, not in any acute distress. Well developed, well nourished. HEENT: Pupils are round and equally reacting to light. EOMI. No scleral icterus. No conjunctival pallor. Normocephalic, atraumatic. No pharyngeal erythema. No thyromegaly. CARDIOVASCULAR: S1 and S2 present. No murmurs, rubs, or gallops. PULMONARY: Chest is clear to auscultation, no wheezing or crackles. ABDOMEN: Soft, nontender, nondistended, normoactive bowel sounds. No palpable organomegaly. MUSCULOSKELETAL: No joint swelling or deformity. EXTREMITIES: No cyanosis, clubbing, or pedal edema. NEUROLOGICAL: Gross neurological examination did not reveal any focal deficits. SKIN: No rashes. Results CBC & Chem 7: 03/18/18 20:32 03/18/18 20:32 Labs: Abnormal Lab Results - Last 24 Hours (Table) 03/18/18 03/18/18 03/18/18 Range/Units 20:32 20:32 21:34 RBC 3.61 L (4.30-5.90) m/uL Hgb 11.7 L (13.0-17.5) gm/dL Hct 34.6 L (39.0-53.0) % Sodium 136 L (137-145) mmol/L BUN 21 H (9-20) mg/dL Glucose 101 H (74-99) mg/dL Calcium 8.2 L (8.4-10.2) mg/dL Total Protein 6.2 L (6.3-8.2) g/dL Albumin 3.4 L (3.5-5.0) g/dL Urine Protein Trace H (Negative) Urine Blood Moderate H (Negative) Ur Leukocyte Esterase Large H (Negative) Urine RBC 9 H (0-5) /hpf Urine WBC >182 H (0-5) /hpf Urine WBC Clumps Many H (None) /hpf Ur Squamous Epith Cells 5 H (0-4) /hpf Urine Bacteria Many H (None) /hpf Urine Yeast (Budding) Occasional H (None) /hpf Microbiology - Last 24 Hours (Table) 03/18/18 21:34 Urine Culture - Preliminary Urine,Catheterized Thrombosis Risk Factor Assmnt - Choose All That Apply Any of the Below Risk Factors Present?: Yes Other Risk Factors: Yes Each Risk Factor Represents 2 Points: Malignancy Each Risk Factor Represents 3 Points: Age 75 years or older Other congenital or acquired thrombophilia - If yes, enter type in comment: No Thrombosis Risk Factor Assessment Total Risk Factor Score: 5 Thrombosis Risk Factor Assessment Level: High Risk Assessment and Plan Plan: -Nausea vomiting: Possibly secondary to gastritis as an urinary tract infection patient will be started on Protonix. Patient's symptoms significant improved now. -Possibly of urinary tract infection cannot be ruled out considering above- mentioned [facility] and patient does straight catheterization because of which we get the pain in of infectious disease for now Zosyn will be continued. Patient had history history of pseudomonal urinary tract infection multiple hospitalizations secondary to that. -Hypothyroidism -Chronic urinary retention undergo straight catheterizations history of prostate cancer with radiation therapy in the past
--- NOTE | 2018-03-19 21:59 | P.CON ---
Consult Note - . Consult date: 03/19/18 Assessment/Plan:: This is an 82-year-old male patient well known to ID service as he has been treated for recurrent Pseudomonas urinary tract infections and is also under the care of Dr. Downey with prior history of prostate cancer with radiation therapy. Patient's gait casts twice daily and he denies having any problems with this. Yesterday started having a fever up to 101.7 and he was more drowsy. His passed on that patient slept in a chair all day. He vomited 1 at home. He presented to [facility] emergency center with temperature max of 101.6, white count of 8.7, albumin was 3.4, creatinine 1, lactic acid 1.1. Urinalysis was cloudy, blood moderate, leukoesterase large, WBC 182, comes many, squamous cell 5, bacteria many, budding yeast occasional. Blood and urine cultures aren't progress. Patient was started on Zosyn and plan to admit to the [facility] floor. Patient is currently stationed in the hallway in the ER waiting for a bed. The patient states that his nausea and vomiting have resolved. He denies having any dysuria sensation. He had attempted self-catheterization here but was unsuccessful as he states it's different equipment the knee just 2. Black catheter has been placed and is draining cloudy urine was large amount of sediment. Please see the consult note is dictated by nurse practitioner Miss Danyelle Brooks. Pleasant 82-year-old male known to the service from the office was seen in the outpatient setting because of his frequent urinary tract infections. Was placed on Cystex and was being monitored. As noted he had the sudden onset of fever chills pain and constantly presented to the emergency center with evidence of urinary tract infection and sepsis from urinary system. He has a history of pseudomonal infection and constantly antibiotic therapy was started. The patient is feeling somewhat better with hydration antibiotic therapy and antipyretics is feeling considerably better. With his history of Pseudomonas antibiotic therapy is altered to ceftazidime to maximize treatment and limited spectrum. At this time await cultures which will determine our course of therapy. The patient however is aware that if he again has a Pseudomonas isolated there are no oral antibiotics available would need to have outpatient intravenous antibiotic therapy. 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 I agree with evaluation, assessment and plan this dictated by nurse practitioner Mrs. Danyelle Brooks.
[2018-03-20] MEDS: SODIUM CHLORIDE 0.9% 1,000 ML IV SCH ×2 (04:18→15:42)
[2018-03-20] MEDS: LEVOTHYROXINE 125 MCG TAB PO SCH (06:20)
[2018-03-20] MEDS: PANTOPRAZOLE 40 MG/10 ML VIAL IVP SCH (08:22)
[2018-03-20] MEDS: HYDROCORTISONE 20 MG TAB PO SCH ×2 (08:23→13:41)
[2018-03-20] MEDS: VIT A,C & E-LUTEIN-MINERALS 1 EACH TAB PO SCH (13:40)
--- NOTE | 2018-03-20 16:03 | P.PN ---
Subjective 82-year-old male with a history of recurrent UTIs does straight catheterization at home is being treated for urinary tract infection urine cultures are still pending infectious disease is following the patient. Constitutional: Denied any fatigue denied any fever. Cardio vascular: denied any chest pain, palpitations Gastrointestinal denied any nausea vomiting Pulmonary: Denied any shortness of breath cough Neurologic denied any new focal deficits Objective - Vital Signs Vital signs: Vital Signs Temp 97.2 F L 03/20/18 15:00 Pulse 63 03/20/18 15:00 Resp 18 03/20/18 15:00 BP 141/67 03/20/18 15:00 Pulse Ox 95 03/20/18 15:00 Intake & Output 03/19/18 03/20/18 03/20/18 18:59 06:59 18:59 Output Total 1400 1250 800 Balance -1400 -1250 -800 Output: Urine 1400 1250 800 Coude 400 Other: Voiding Method Diaper Indwelling Catheter Incontinent # Bowel Movements 0 - Exam PHYSICAL EXAMINATION: GENERAL: The patient is alert and oriented x3, not in any acute distress. Well developed, well nourished. HEENT: Pupils are round and equally reacting to light. EOMI. No scleral icterus. No conjunctival pallor. Normocephalic, atraumatic. No pharyngeal erythema. No thyromegaly. CARDIOVASCULAR: S1 and S2 present. No murmurs, rubs, or gallops. PULMONARY: Chest is clear to auscultation, no wheezing or crackles. ABDOMEN: Soft, nontender, nondistended, normoactive bowel sounds. No palpable organomegaly. MUSCULOSKELETAL: No joint swelling or deformity. EXTREMITIES: No cyanosis, clubbing, or pedal edema. NEUROLOGICAL: Gross neurological examination did not reveal any focal deficits. SKIN: No rashes. - Labs CBC & Chem 7: 03/18/18 20:32 03/18/18 20:32 Labs: Microbiology - Last 24 Hours (Table) 03/18/18 21:34 Urine Culture - Preliminary Urine,Catheterized Gram Neg Bacilli 03/18/18 20:32 Blood Culture - Preliminary Blood No Growth after 24 hours Assessment and Plan Plan: -Nausea vomiting: Possibly secondary to gastritis as an urinary tract infection patient will be started on Protonix. Patient's symptoms significant improved now. improved symptoms and patient wanted to go home -Possibly of urinary tract infection she is presently on cefazolin infectious disease is following the patient -Hypothyroidism -Chronic urinary retention undergo straight catheterizations history of prostate cancer with radiation therapy in the past
[2018-03-21] MEDS: SODIUM CHLORIDE 0.9% 1,000 ML IV SCH (05:29)
[2018-03-21] MEDS: HYDROCORTISONE 20 MG TAB PO SCH ×2 (07:29→14:12)
[2018-03-21] MEDS: LEVOTHYROXINE 125 MCG TAB PO SCH (07:30)
[2018-03-21] MEDS: PANTOPRAZOLE 40 MG/10 ML VIAL IVP SCH (07:30)
[2018-03-21] MEDS: VIT A,C & E-LUTEIN-MINERALS 1 EACH TAB PO SCH (14:13)
[2018-03-21 15:33] VITALS: BP 159/76; PULSE 56; RESP 18; TEMP 97.6
[2018-03-22] MEDS ORDERED: PANTOPRAZOLE 40 MG TABLET PO SCH (07:30)
--- NOTE | 2018-03-22 19:04 | P.DS ---
Providers Date of admission: 03/20/18 14:48 Expected date of discharge: 03/21/18 Attending physician: Kristina Cortez Consults: 03/18/18 22:26 Consult Physician Urgent Consulting Provider: Daniel Akins Consult Reason/Comments: Urinary tract infection, fever Do you want consulting provider notified?: Yes Primary care physician: Vanessa Oneill Hospital Course: Final Diagnoses: -Acute UTI with Enterobacter cloacae -Possible gastritis -Hypothyroidism -Chronic urinary retention undergo straight catheterizations history of prostate cancer with radiation therapy in the past Hospital course:82-year-old male with a history of recurrent UTIs does straight catheterization at home is being treated for urinary tract infection. Evaluated by infectious disease. Maintained on IV antibiotics. Urine culture reporting Enterobacter cloacae. Significant clinical improvement. Cleared by infectious disease for discharge. Patient is being discharged home in a stable condition with guarded prognosis. Microbiology 03/18/18 20:32 Blood Blood Culture - Preliminary No Growth after 72 hours 03/18/18 21:34 Urine,Catheterized Urine Culture - Final Enterobacter cloacae EXAM: GENERAL: The patient is alert and oriented x3, not in any acute distress. Well developed, well nourished. CARDIOVASCULAR: S1 and S2 present. No murmurs, rubs, or gallops. PULMONARY: Chest is clear to auscultation, no wheezing or crackles. ABDOMEN: Soft, nontender, nondistended, normoactive bowel sounds. NEUROLOGICAL: Gross neurological examination did not reveal any focal deficits. The impression and plan of care has been dictated as directed. : I performed a history and examination of this patient, discussed the same with the dictator. I agree with the dictator's note ,documented as a scribe. Any additional findings or plans will be noted. Time taken: 35 minutes Patient Condition at Discharge: Stable Plan - Discharge Summary Discharge Rx Participant: No New Discharge Prescriptions: New Sulfamethox-Tmp 800-160Mg [Bactrim DS 800-160 mg] 1 tab PO Q12HR #28 tab Acetaminophen Tab [Tylenol] 650 mg PO Q6HR PRN tab PRN Reason: Mild Pain Or Fever > 100.5 Pantoprazole [Protonix] 40 mg PO AC-BRKFST #15 tablet. Continue Hydrocortisone [Cortef] 10 mg PO DAILY@1400 Hydrocortisone [Cortef] 20 mg PO QAM Cranberry Fruit Concentrate [Cranberry] 1,350 mg PO DAILY Vit C/E/Zn/Coppr/Lutein/Zeaxan [Preservision Areds 2 Softgel] 1 cap PO BID Levothyroxine Sodium [Synthroid] 125 mcg PO DAILY Methenamine/Sodium Salicylate [Cystex Plus Tablet] 1 tab PO DAILY Discharge Medication List Hydrocortisone [Cortef] 10 mg PO DAILY@1400 07/27/17 [History] Hydrocortisone [Cortef] 20 mg PO QAM 07/27/17 [History] Cranberry Fruit Concentrate [Cranberry] 1,350 mg PO DAILY 08/28/17 [History] Levothyroxine Sodium [Synthroid] 125 mcg PO DAILY 03/18/18 [History] Methenamine/Sodium Salicylate [Cystex Plus Tablet] 1 tab PO DAILY 03/18/18 [ History] Vit C/E/Zn/Coppr/Lutein/Zeaxan [Preservision Areds 2 Softgel] 1 cap PO BID 03/18 [History] Acetaminophen Tab [Tylenol] 650 mg PO Q6HR PRN tab 03/21/18 [Rx] Pantoprazole [Protonix] 40 mg PO AC-BRKFST #15 tablet. 03/21/18 [Rx] Sulfamethox-Tmp 800-160Mg [Bactrim DS 800-160 mg] 1 tab PO Q12HR #28 tab [Rx] Follow up Appointment(s)/Referral(s): Vanessa Oneill MD [Primary Care Provider] - 3 Days (office closed, client aware he needs to make own appt) Ambulatory/Diagnostic Orders: Complete Blood Count w/diff [LAB.AMB] Time Frame: 3 Days, Location: None Selected Patient Instructions/Handouts: Urinary Tract Infection in Men (DC) Discharge Disposition: HOME SELF-CARE
--- NOTE | 2018-03-26 08:30 | CDI ---
Last Revision, August 2017 Documentation Clarification Form Date: 03/25/2018 7:11:00 AM From: Mariel Carvalho Phone: If you have a question about this query, please contact Cecelia Mckeon Tar Heater at [phone] between 8am and 5pm. Admit Date: 03/20/2018 2:48:00 PM Patient Name: China Foreman Visit Number: [id number] Discharge Date: 03/21/2018 ATTENTION: The Clinical Documentation Specialists (CDI) and [facility] Coding Staff appreciate your assistance in clarifying documentation. Please respond to the clarification below the line at the bottom and electronically sign. The CDI & [facility] Coding staff will review the response and follow-up if needed. Please note: Queries are made part of the Legal Health Record. If you have any questions, please contact the author of this message via ITS. Dr. Diego Vargas: Documentation of uti and sepsis of urinary system found in consult. Please clarify if patient had sepsis. History/Risk Factors: UTI and history of UTI's, urine retention. Clinical Indicators: Patient had fever of 101.7 Antibiotics: Cystex constant antibiotic thereapy In your professional opinion, please clarify if these findings signify one of the following conditions, whether the condition is POA, and cause, if known: Sepsis Sepsis ruled out Other, please specify Unable to determine Present on Admission: Yes No Sepsis, present on admission MTDD
== END 2018-03-21 16:32 | disposition home or self-care (01) | DRG 872 ==
LOC: EC 19:22 → INTOOBSV 22:25 → 4MS4W 22:25 → OBSVTOIN 03-20 14:48
PROVIDERS: ADMIT Hospitalist; ATTEND Hospitalist
DX: A41.9 Sepsis, unspecified organism (principal); N39.0 Urinary tract infection, site not specified; B96.89 Other specified bacterial agents as the cause of diseases classified elsewhere; E03.9 Hypothyroidism, unspecified; H35.30 Unspecified macular degeneration; Z80.0 Family history of malignant neoplasm of digestive organs; Z85.46 Personal history of malignant neoplasm of prostate; Z87.440 Personal history of urinary (tract) infections; Z92.3 Personal history of irradiation; E23.7 Disorder of pituitary gland, unspecified; Z79.890 Hormone replacement therapy; Z79.899 Other long term (current) drug therapy; K29.70 Gastritis, unspecified, without bleeding; R33.9 Retention of urine, unspecified
CPT/HCPCS: 36415; 71046; 80053; 81001; 83605; 85025; 87040; 87077; 87086; 87186; 96361; 96365; 96366; 99285

== ENCOUNTER 2018-04-17 03:39 | Inpatient (IN) | payer MEDICARE, BC ==
[2018-04-17] MEDS ORDERED: cefTRIAXone IN SWFI 1,000 MG/10 ML SYRINGE IVP STA (03:43)
[2018-04-17] MEDS ORDERED: ACETAMINOPHEN TAB 325 MG TAB PO STA (03:43)
[2018-04-17 04:09] LABS: Basophils % (A) 0 %; Eosinophils # (A) 0.1 k/uL (0-0.7); Eosinophils % (A) 1 %; HCT 33.8 % (39.0-53.0); HGB 11.6 gm/dL (13.0-17.5); Lymphocytes # (A) 1.5 k/uL (1.0-4.8); Lymphocytes % (A) 15 %; MCH 32.6 pg (25.0-35.0); MCHC 34.3 g/dL (31.0-37.0); MCV 95.1 fL (80.0-100.0); Mean Platelet Volume 6.3; Monocytes # (A) 0.7 k/uL (0-1.0); Monocytes % (A) 7 %; Neutrophils # (A) 7.4 k/uL (1.3-7.7); Neutrophils % (A) 75 %; Platelet Count 142 k/uL (150-450); RBC 3.56 m/uL (4.30-5.90); RDW 12.9 % (11.5-15.5); WBC 9.9 k/uL (3.8-10.6)
[2018-04-17] MEDS: SODIUM CHLORIDE 0.9% 500 ML IV SCH (04:09)
[2018-04-17 04:19] LABS: INR 1.1 (<1.2)
[2018-04-17 04:20] LABS: Albumin 3.2 g/dL (3.5-5.0); Calcium 8.1 mg/dL (8.4-10.2); Potassium 4.5 mmol/L (3.5-5.1); Total Bilirubin 0.4 mg/dL (0.2-1.3); Total Protein 5.9 g/dL (6.3-8.2)
--- NOTE | 2018-04-17 04:20 | ED ---
Fever HPI - General Chief Complaint: Fever Stated Complaint: altered mental status Time Seen by Provider: 04/17/18 03:43 Source: EMS Mode of arrival: EMS Limitations: altered mental status - History of Present Illness Initial Comments: This patient is an 82-year-old man brought in by ambulance to be evaluated for altered mental status. The patient does require intermittent straight catheterization for urination. A patient's want to do that tonight, she noticed that he was confused and disoriented. It appears she also had felt warm and when EMS arrived they did detect that the patient had a fever and was hypotensive. The patient when I interview him does not have complaints. He denies dyspnea or pains. MD Complaint: fever, other (Confusion) -: unknown Temperature Source: subjective - Related Data Home Medications Medication Instructions Recorded Confirmed Hydrocortisone [Cortef] 10 mg PO DAILY@1400 07/27/17 03/18/18 Hydrocortisone [Cortef] 20 mg PO QAM 07/27/17 03/18/18 Cranberry Fruit Concentrate 1,350 mg PO DAILY 08/28/17 03/18/18 [Cranberry] Levothyroxine Sodium [Synthroid] 125 mcg PO DAILY 03/18/18 03/18/18 Methenamine/Sodium Salicylate 1 tab PO DAILY 03/18/18 03/18/18 [Cystex Plus Tablet] Vit C/E/Zn/Coppr/Lutein/Zeaxan 1 cap PO BID 03/18/18 03/18/18 [Preservision Areds 2 Softgel] Previous Rx's Medication Instructions Recorded Acetaminophen Tab [Tylenol] 650 mg PO Q6HR PRN tab 03/21/18 Pantoprazole [Protonix] 40 mg PO AC-BRKFST #15 tablet. 03/21/18 Sulfamethox-Tmp 800-160Mg [Bactrim 1 tab PO Q12HR #28 tab 03/21/18 DS 800-160 mg] Allergies Allergy/AdvReac Type Severity Reaction Status Date / Time No Known Allergies Allergy Verified 04/17/18 03:47 Review of Systems ROS Statement: Those systems with pertinent positive or pertinent negative responses have been documented in the HPI. Limitations: ROS unobtainable due to patients medical condition Constitutional: Reports: fever Respiratory: Denies: cough, dyspnea Cardiovascular: Denies: chest pain, palpitations, syncope Gastrointestinal: Denies: abdominal pain, vomiting, diarrhea Genitourinary: Reports: as per HPI, other (Requires catheterization) Musculoskeletal: Denies: back pain Skin: Denies: rash Neurological: Reports: as per HPI, confusion. Denies: headache Past Medical History Past Medical History: Cancer, Eye Disorder, Thyroid Disorder Additional Past Medical History / Comment(s): Prostate CA with radiation/ urinary retention/self caths at 9pm and midnight and voids during daytime hours / occasional incontinence of urine, frequent UTIs and has confusion with UTIs, stable pituitary mass, hyponatremia, chronic anemia, bilateral macular degeneration, hypothyroidism, pt's legs are cold all the time. History of Any Multi-Drug Resistant Organisms: Other MDRO Past Surgical History: Adenoidectomy, Tonsillectomy Additional Past Surgical History / Comment(s): EGD/colonoscopy. Past Anesthesia/Blood Transfusion Reactions: No Reported Reaction Past Psychological History: No Psychological Hx Reported Smoking Status: Former smoker Past Alcohol Use History: None Reported Past Drug Use History: None Reported - Past Family History Father Family Medical History: Cancer Additional Family Medical History / Comment(s): Colon CA, at 74. Mother Family Medical History: No Reported History, CVA/TIA General Exam Limitations: no limitations General appearance: alert, in no apparent distress Head exam: Present: atraumatic, normocephalic Eye exam: Present: normal appearance. Absent: scleral icterus, conjunctival injection ENT exam: Present: mucous membranes dry Neck exam: Present: normal inspection, full ROM. Absent: tenderness, meningismus Respiratory exam: Present: rales (Few trace crackles at the bases bilaterally otherwise clear). Absent: respiratory distress, wheezes, rhonchi, stridor, accessory muscle use, decreased breath sounds Cardiovascular Exam: Present: regular rate, normal rhythm, normal heart sounds. Absent: systolic murmur, diastolic murmur, rubs, gallop GI/Abdominal exam: Present: soft. Absent: distended, tenderness, guarding, rebound, rigid, mass Extremities exam: Present: normal inspection, normal capillary refill. Absent: pedal edema, calf tenderness Back exam: Present: normal inspection. Absent: CVA tenderness (R), CVA tenderness (L) Neurological exam: Present: alert, CN II-XII intact. Absent: oriented X3 ( Patient is alert and oriented to person and place could not state the date), motor sensory deficit Skin exam: Present: warm, dry, intact, normal color. Absent: rash Course Vital Signs 04/17/18 04/17/18 04/17/18 03:40 03:55 04:10 Temperature 100.7 F H Pulse Rate 59 L 86 78 Respiratory 18 18 18 Rate Blood Pressure 159/104 95/53 104/51 O2 Sat by Pulse 94 L 96 95 Oximetry 04/17/18 04/17/18 04/17/18 04:25 04:28 04:55 Temperature 98.5 F Pulse Rate 61 77 76 Respiratory 18 18 16 Rate Blood Pressure 90/50 85/51 86/50 O2 Sat by Pulse 99 99 98 Oximetry 04/17/18 04/17/18 05:25 05:50 Temperature 98.6 F Pulse Rate 76 84 Respiratory 18 18 Rate Blood Pressure 102/54 109/52 O2 Sat by Pulse 98 98 Oximetry Medical Decision Making - Lab Data Result diagrams: 04/17/18 03:55 04/17/18 03:55 Lab Results 04/17/18 04/17/18 04/17/18 Range/Units 03:55 03:55 03:55 WBC 9.9 (3.8-10.6) k/uL RBC 3.56 L (4.30-5.90) m/uL Hgb 11.6 L (13.0-17.5) gm/dL Hct 33.8 L (39.0-53.0) % MCV 95.1 (80.0-100.0) fL MCH 32.6 (25.0-35.0) pg MCHC 34.3 (31.0-37.0) g/dL RDW 12.9 (11.5-15.5) % Plt Count 142 L (150-450) k/uL Neutrophils % 75 % Lymphocytes % 15 % Monocytes % 7 % Eosinophils % 1 % Basophils % 0 % Neutrophils # 7.4 (1.3-7.7) k/uL Lymphocytes # 1.5 (1.0-4.8) k/uL Monocytes # 0.7 (0-1.0) k/uL Eosinophils # 0.1 (0-0.7) k/uL Basophils # 0.0 (0-0.2) k/uL PT (9.0-12.0) sec INR (<1.2) APTT (22.0-30.0) sec Sodium 133 L (137-145) mmol/L Potassium 4.5 (3.5-5.1) mmol/L Chloride 103 (98-107) mmol/L Carbon Dioxide 25 (22-30) mmol/L Anion Gap 5 mmol/L BUN 23 H (9-20) mg/dL Creatinine 1.20 (0.66-1.25) mg/dL Est GFR (CKD-EPI)AfAm 64 (>60 ml/min/1.73 sqM) Est GFR (CKD-EPI)NonAf 55 (>60 ml/min/1.73 sqM) Glucose 94 (74-99) mg/dL Plasma Lactic Acid [place] 1.5 (0.7-2.0) mmol/L Calcium 8.1 L (8.4-10.2) mg/dL Total Bilirubin 0.4 (0.2-1.3) mg/dL AST 31 (17-59) U/L ALT 43 (21-72) U/L Alkaline Phosphatase 51 (38-126) U/L Troponin I (0.000-0.034) ng/mL Total Protein 5.9 L (6.3-8.2) g/dL Albumin 3.2 L (3.5-5.0) g/dL Urine Color Urine Appearance (Clear) Urine pH (5.0-8.0) Ur Specific [place] (1.001-1.035) Urine Protein (Negative) Urine Glucose (UA) (Negative) Urine Ketones (Negative) Urine Blood (Negative) Urine Nitrite (Negative) Urine Bilirubin (Negative) Urine Urobilinogen (<2.0) mg/dL Ur Leukocyte Esterase (Negative) Urine RBC (0-5) /hpf Urine WBC (0-5) /hpf Urine Bacteria (None) /hpf Urine Mucus (None) /hpf 04/17/18 04/17/18 04/17/18 Range/Units 03:55 03:55 04:20 WBC (3.8-10.6) k/uL RBC (4.30-5.90) m/uL Hgb (13.0-17.5) gm/dL Hct (39.0-53.0) % MCV (80.0-100.0) fL MCH (25.0-35.0) pg MCHC (31.0-37.0) g/dL RDW (11.5-15.5) % Plt Count (150-450) k/uL Neutrophils % % Lymphocytes % % Monocytes % % Eosinophils % % Basophils % % Neutrophils # (1.3-7.7) k/uL Lymphocytes # (1.0-4.8) k/uL Monocytes # (0-1.0) k/uL Eosinophils # (0-0.7) k/uL Basophils # (0-0.2) k/uL PT 11.0 (9.0-12.0) sec INR 1.1 (<1.2) APTT 24.0 (22.0-30.0) sec Sodium (137-145) mmol/L Potassium (3.5-5.1) mmol/L Chloride (98-107) mmol/L Carbon Dioxide (22-30) mmol/L Anion Gap mmol/L BUN (9-20) mg/dL Creatinine (0.66-1.25) mg/dL Est GFR (CKD-EPI)AfAm (>60 ml/min/1.73 sqM) Est GFR (CKD-EPI)NonAf (>60 ml/min/1.73 sqM) Glucose (74-99) mg/dL Plasma Lactic Acid [place] (0.7-2.0) mmol/L Calcium (8.4-10.2) mg/dL Total Bilirubin (0.2-1.3) mg/dL AST (17-59) U/L ALT (21-72) U/L Alkaline Phosphatase (38-126) U/L Troponin I <0.012 (0.000-0.034) ng/mL Total Protein (6.3-8.2) g/dL Albumin (3.5-5.0) g/dL Urine Color Light Yellow Urine Appearance Clear (Clear) Urine pH 6.5 (5.0-8.0) Ur Specific [place] 1.008 (1.001-1.035) Urine Protein Trace H (Negative) Urine Glucose (UA) Negative (Negative) Urine Ketones Negative (Negative) Urine Blood Negative (Negative) Urine Nitrite Negative (Negative) Urine Bilirubin Negative (Negative) Urine Urobilinogen <2.0 (<2.0) mg/dL Ur Leukocyte Esterase Moderate H (Negative) Urine RBC 2 (0-5) /hpf Urine WBC 33 H (0-5) /hpf Urine Bacteria Occasional H (None) /hpf Urine Mucus Rare H (None) /hpf - EKG Data -: EKG Interpreted by Me EKG shows normal: sinus rhythm, intervals (QRS duration 136 ms, consistent with right bundle-branch block. MN interval 166 ms, normal. QTC 486, normal.), QRS complexes (Right bundle-branch block), ST-T waves (Normal) Rate: normal (Rate 83 bpm) Disposition Clinical Impression: Sepsis, Urinary tract infection Disposition: ADMITTED IP TO THIS HOSP Condition: Serious Referrals: Vanessa Oneill MD [Primary Care Provider] - 1-2 days
[2018-04-17 04:45] LABS: Appearance,Urine Clear (Clear); Bacteria,Urine Occasional /hpf; Bilirubin,Urine Negative (Negative); Blood,Urine Negative (Negative); Color,Urine Light Yellow; Glucose,Urine (UA) Negative (Negative); Ketones,Urine Negative (Negative); Leukocyte Esterase,Urine Moderate (Negative); Mucus,Urine Rare /hpf; Nitrite,Urine Negative (Negative); PH, Urine 6.5 (5.0-8.0); Protein,Urine Trace (Negative); RBC,Urine 2 /hpf (0-5); Specific Gravity,Urine 1.008 (1.001-1.035); Urobilinogen,Urine <2.0 mg/dL (<2.0); WBC,Urine 33 /hpf (0-5)
[2018-04-17] MEDS ORDERED: SODIUM CHLORIDE 0.9% 1,000 ML IV ONE (05:19)
--- NOTE | 2018-04-17 05:26 | XR ---
EXAM: XR Chest, 1 View CLINICAL HISTORY: Reason: Fever TECHNIQUE: Frontal view of the chest. COMPARISON: CXR 07/27/17 FINDINGS: Lungs: Unremarkable. No consolidation. Pleural space: Unremarkable. No pneumothorax. Heart: Heart size appears mildly enlarged likely due to technique. Mediastinum: Unremarkable. Bones/joints: Unremarkable. IMPRESSION: No acute cardiopulmonary findings.
[2018-04-17] MEDS ORDERED: LEVOFLOXACIN 750MG-D5W PMX 750 MG in DEXTROSE/WATER 1 150ML.BAG IVPB STA (06:31)
[2018-04-17] MEDS: SODIUM CHLORIDE 0.9% 1,000 ML IV SCH ×3 (06:52→19:43)
[2018-04-17] MEDS ORDERED: ACETAMINOPHEN TAB 325 MG TAB PO PRN ×2 (11:29→13:28)
[2018-04-17] MEDS: FAMOTIDINE 20 MG/2 ML VIAL IV SCH ×2 (11:32→21:15)
[2018-04-17] MEDS ORDERED: SODIUM SALICYLATE PO SCH (13:30)
[2018-04-17] MEDS ORDERED: NON-FORMULARY DRUG (L.Acidoph,Paracasei, B.Lactis [Probiotic] 1 CAP) PO SCH (13:30)
[2018-04-17] MEDS ORDERED: METHENAMINE PO SCH (13:30)
[2018-04-17] MEDS: LEVOTHYROXINE 100 MCG TAB PO SCH (14:53)
[2018-04-17] MEDS: HYDROCORTISONE 10 MG TAB PO SCH (14:53)
[2018-04-17] MEDS ORDERED: NON-FORMULARY DRUG (Vit C/E/Zn/Coppr/Lutein/Zeaxan [Preservision Areds 2 Softgel] 1 CAP) PO SCH (21:00)
--- NOTE | 2018-04-17 22:41 | P.CONS ---
History of Present Illness - Reason for Consult Consult date: 04/17/18 - Chief Complaint fever - History of Present Illness 82-year-old male that has multiple medical troubles including history of prostate cancer who is status post surgical intervention as well as radiation therapy. The patient has chronic urinary obstruction and utilizes a straight cath 3-4 times per day. His must assist. The patient has had difficulties over the last year with recurrent urinary tract infections, more recently become more resistant and was treated with a course of intravenous antibiotic therapy. He was doing well but then within the last month was having some difficulties and a new bacteria was found, Enterobacter and this was susceptible to quinolone and a course of this was utilized. Over the last few weeks the patient is doing relatively well he's had no great difficulty such as fevers or chills or weakness until apparently the day of admission. At the time the patient became confused had a low-grade fever and constantly was brought to the emergency center for intervention. Patient is weak and feels poorly, not having much of an appetite, but denies nausea or emesis. Review of Systems HEENT:Denies headache or acute visual change. Denies sinus or mouth discomforts. Denies neck stiffness or pain. Denies significant oral cavity pain. Denies difficulty on swallowing. Lungs: Denies significant shortness of breath, cough, sputum production, or hemoptysis. Cardiovascular: Denies significant shortness of breath, chest pain, chest wall pain, orthopnea, dyspnea on exertion, syncope Gastrointestinal:Denies nausea, vomiting, diarrhea, constipation, hematemesis, melena, hematochezia. No no significant change of bowel habit noticed. Musculoskeletal: denies significant myalgias or arthralgias. No new joint swelling. Denies new back pain. Skin: Denies new rash or lesions. No new ulcers or wounds are related.. Neuro: Patient has had confusion is better at this time the noted at admission Psychiatric:Denies anxiety or depression. Endocrine: Definite increase in fatigue weight has been stable Past Medical History Past Medical History: Cancer, Eye Disorder, Thyroid Disorder Additional Past Medical History / Comment(s): Prostate CA with radiation/ urinary retention/self caths at 9pm and midnight and voids during daytime hours / occasional incontinence of urine, frequent UTIs and has confusion with UTIs, stable pituitary mass, hyponatremia, chronic anemia, bilateral macular degeneration, hypothyroidism, pt's legs are cold all the time. History of Any Multi-Drug Resistant Organisms: Other MDRO Past Surgical History: Adenoidectomy, Tonsillectomy Additional Past Surgical History / Comment(s): EGD/colonoscopy. Past Anesthesia/Blood Transfusion Reactions: No Reported Reaction Additional Psychological History / Comment(s): and lives in the family home. 3 without children, are involved. 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 No international travel. No current animal exposures Smoking Status: Former smoker - Past Family History Father Family Medical History: Cancer Additional Family Medical History / Comment(s): Colon CA, of at 74. Mother Family Medical History: No Reported History, CVA/TIA Additional Family Medical History / Comment(s): Mother of a CVA at the age of 83yrs. Medications and Allergies Home Medications and Allergies Comment(s): Current Medications Acetaminophen (Tylenol Tab) 650 mg PO Q6HR PRN PRN Reason: Fever and/ or Pain Acetaminophen (Tylenol Tab) 650 mg PO Q6HR PRN PRN Reason: Mild Pain or Fever > 100.5 Famotidine (Pepcid) 20 mg IV BID [facility] Last Admin: 04/17/18 21:15 Dose: 20 mg Hydrocortisone (Cortef) 10 mg PO DAILY@1400 [facility] Last Admin: 04/17/18 14:53 Dose: 10 mg Hydrocortisone (Cortef) 20 mg PO QAM [facility] Sodium Chloride (Saline 0.9%) 1,000 mls @ 150 mls/hr IV .Q6H40M [facility] Last Admin: 04/17/18 19:43 Dose: 150 mls/hr Ceftazidime 2 gm/ Sodium (Chloride) 100 mls @ 100 mls/hr IVPB Q8HR [facility] Last Admin: 04/17/18 19:37 Dose: 100 mls/hr Levothyroxine Sodium (Synthroid) 100 mcg PO DAILY [facility] Last Admin: 04/17/18 14:53 Dose: 100 mcg Home Medications Medication Instructions Recorded Confirmed Type Hydrocortisone [Cortef] 10 mg PO DAILY@1400 07/27/17 04/17/18 History Hydrocortisone [Cortef] 20 mg PO QAM 07/27/17 04/17/18 History Cranberry Fruit Concentrate 1,350 mg PO DAILY 08/28/17 04/17/18 History [Cranberry] Levothyroxine Sodium [Synthroid] 100 mcg PO DAILY 03/18/18 04/17/18 History Methenamine/Sodium Salicylate 1 tab PO DAILY 03/18/18 04/17/18 History [Cystex Plus Tablet] Vit C/E/Zn/Coppr/Lutein/Zeaxan 1 cap PO BID 03/18/18 04/17/18 History [Preservision Areds 2 Softgel] Acetaminophen Tab [Tylenol] 650 mg PO Q6HR PRN tab 03/21/18 04/17/18 Rx L.acidoph,Paracasei, B.lactis 1 cap PO DAILY 04/17/18 04/17/18 History [Probiotic] Allergies Allergy/AdvReac Type Severity Reaction Status Date / Time No Known Allergies Allergy Verified 04/17/18 11:33 Physical Exam Vitals: Vital Signs Temp Pulse Pulse Resp BP BP Pulse Ox 04/17/18 15:00 100.6 F H 73 20 111/48 96 04/17/18 08:34 98.4 F 88 16 114/45 97 04/17/18 07:40 99.1 F 83 20 110/54 99 04/17/18 06:29 82 18 131/60 100 04/17/18 05:50 98.6 F 84 18 109/52 98 04/17/18 05:25 76 18 102/54 98 04/17/18 04:55 76 16 86/50 98 04/17/18 04:28 98.5 F 77 18 85/51 99 04/17/18 04:25 61 18 90/50 99 04/17/18 04:10 78 18 104/51 95 04/17/18 03:55 86 18 95/53 96 04/17/18 03:40 100.7 F H 59 L 18 159/104 94 L Intake and Output 04/17/18 04/17/18 04/17/18 06:59 14:59 22:59 Output Total 802 250 Balance -802 -250 Output: Urine 800 250 Straight 400 Stool 2 Other: Voiding Method Incontinent Incontinent Incontinent Self-Catheterization Self-Catheterization Self-Catheterization # Voids 2 2 Weight 90.718 kg Pleasant 81-year-old male who is comfortable at this point in time. His mentation is starting to improve but has not attained his baseline yet. HEENT: Anicteric conjunctiva are pink and moist nasal mucosa grossly intact without significant lesions, there is no thrush. Neck: The neck is supple without significant lymphadenopathy or thyromegaly. Lungs: Good bilateral air entry without significant crackles or wheezing. There is no significant bronchial sounds. There is no egophony or dullness. Heart: Regular rate and rhythm with an audible S1-S2, no S3 no S4. There is no significant murmur click or rub, PMI was nondisplaced. Abdomen: Positive bowel sounds soft and nontender without palpable masses or organomegaly. There was no guarding or rebound. Extremities: The upper extremities have excellent pulses they are symmetric, no significant petechiae or telangiectasia. No splinter hemorrhages were noted. Lower extremities have only trace pedal edema but no ulcerations are seen Neuro: Awake alert oriented to person, place as [facility]. States the date is on the board. No acute gross focal sensory motor deficits though are noted Results CBC & Chem 7: 04/17/18 03:55 04/17/18 03:55 Labs: Abnormal Lab Results - Last 24 Hours (Table) 04/17/18 04/17/18 04/17/18 Range/Units 03:55 03:55 04:20 RBC 3.56 L (4.30-5.90) m/uL Hgb 11.6 L (13.0-17.5) gm/dL Hct 33.8 L (39.0-53.0) % Plt Count 142 L (150-450) k/uL Sodium 133 L (137-145) mmol/L BUN 23 H (9-20) mg/dL Calcium 8.1 L (8.4-10.2) mg/dL Total Protein 5.9 L (6.3-8.2) g/dL Albumin 3.2 L (3.5-5.0) g/dL Urine Protein Trace H (Negative) Ur Leukocyte Esterase Moderate H (Negative) Urine WBC 33 H (0-5) /hpf Urine Bacteria Occasional H (None) /hpf Urine Mucus Rare H (None) /hpf Microbiology - Last 24 Hours (Table) 04/17/18 04:20 Urine Culture - Preliminary Urine,Catheterized Laboratory Results WBC 9.9 k/uL (3.8-10.6) 04/17/18 03:55 RBC 3.56 m/uL (4.30-5.90) L 04/17/18 03:55 Hgb 11.6 gm/dL (13.0-17.5) L 04/17/18 03:55 Hct 33.8 % (39.0-53.0) L 04/17/18 03:55 MCV 95.1 fL (80.0-100.0) 04/17/18 03:55 MCH 32.6 pg (25.0-35.0) 04/17/18 03:55 MCHC 34.3 g/dL (31.0-37.0) 04/17/18 03:55 RDW 12.9 % (11.5-15.5) 04/17/18 03:55 Plt Count 142 k/uL (150-450) L 04/17/18 03:55 Neutrophils % 75 % 04/17/18 03:55 Lymphocytes % 15 % 04/17/18 03:55 Monocytes % 7 % 04/17/18 03:55 Eosinophils % 1 % 04/17/18 03:55 Basophils % 0 % 04/17/18 03:55 Neutrophils # 7.4 k/uL (1.3-7.7) 04/17/18 03:55 Lymphocytes # 1.5 k/uL (1.0-4.8) 04/17/18 03:55 Monocytes # 0.7 k/uL (0-1.0) 04/17/18 03:55 Eosinophils # 0.1 k/uL (0-0.7) 04/17/18 03:55 Basophils # 0.0 k/uL (0-0.2) 04/17/18 03:55 PT 11.0 sec (9.0-12.0) 04/17/18 03:55 INR 1.1 (<1.2) 04/17/18 03:55 APTT 24.0 sec (22.0-30.0) 04/17/18 03:55 Sodium 133 mmol/L (137-145) L 04/17/18 03:55 Potassium 4.5 mmol/L (3.5-5.1) 04/17/18 03:55 Chloride 103 mmol/L (98-107) 04/17/18 03:55 Carbon Dioxide 25 mmol/L (22-30) 04/17/18 03:55 Anion Gap 5 mmol/L 04/17/18 03:55 BUN 23 mg/dL (9-20) H 04/17/18 03:55 Creatinine 1.20 mg/dL (0.66-1.25) 04/17/18 03:55 Est GFR (CKD-EPI)AfAm 64 (>60 ml/min/1.73 sqM) 04/17/18 03:55 Est GFR (CKD-EPI)NonAf 55 (>60 ml/min/1.73 sqM) 04/17/18 03:55 Glucose 94 mg/dL (74-99) 04/17/18 03:55 Plasma Lactic Acid [place] 1.5 mmol/L (0.7-2.0) 04/17/18 03:55 Calcium 8.1 mg/dL (8.4-10.2) L 04/17/18 03:55 Total Bilirubin 0.4 mg/dL (0.2-1.3) 04/17/18 03:55 AST 31 U/L (17-59) 04/17/18 03:55 ALT 43 U/L (21-72) 04/17/18 03:55 Alkaline Phosphatase 51 U/L (38-126) 04/17/18 03:55 Troponin I <0.012 ng/mL (0.000-0.034) 04/17/18 03:55 Total Protein 5.9 g/dL (6.3-8.2) L 04/17/18 03:55 Albumin 3.2 g/dL (3.5-5.0) L 04/17/18 03:55 Urine Color Light Yellow 04/17/18 04:20 Urine Appearance Clear (Clear) 04/17/18 04:20 Urine pH 6.5 (5.0-8.0) 04/17/18 04:20 Ur Specific [place] 1.008 (1.001-1.035) 04/17/18 04:20 Urine Protein Trace (Negative) H 04/17/18 04:20 Urine Glucose (UA) Negative (Negative) 04/17/18 04:20 Urine Ketones Negative (Negative) 04/17/18 04:20 Urine Blood Negative (Negative) 04/17/18 04:20 Urine Nitrite Negative (Negative) 08/15/18 04:20 Urine Bilirubin Negative (Negative) 04/17/18 04:20 Urine Urobilinogen <2.0 mg/dL (<2.0) 04/17/18 04:20 Ur Leukocyte Esterase Moderate (Negative) H 04/17/18 04:20 Urine RBC 2 /hpf (0-5) 04/17/18 04:20 Urine WBC 33 /hpf (0-5) H 04/17/18 04:20 Urine Bacteria Occasional /hpf (None) H 04/17/18 04:20 Urine Mucus Rare /hpf (None) H 04/17/18 04:20 Microbiology 04/17/18 04:20 Urine,Catheterized Urine Culture - Preliminary Assessment and Plan (1) Sepsis Narrative/Plan: 82-year-old male presents to Hospital from his home setting with altered mental status, this occurred in the past but has had worsening of his underlying infection of the urinary system. The patient has a history of prostate cancer and has had surgical or radiation therapy. He has chronic urinary retention with an obstructive uropathy requiring straight catheterization for relief of the bladder. He at this time is more awake and interactive than noted in the emergency center. She had a low-grade fever, there is concern as to recurrent urinary tract infection. Most recent potassium was Enterobacter that was susceptible to quinolone however he routinely has a somewhat resistant Pseudomonas and with that levofloxacin as transition to ceftazidime until we have further data. Continue fluid resuscitation control discomfort and routine medications and we will monitor. Current Visit: Yes Status: Acute Code(s): A41.9 - SEPSIS, UNSPECIFIED ORGANISM SNOMED Code(s): 10040432 (2) Pseudomonas urinary tract infection Current Visit: No Status: Acute Code(s): N39.0 - URINARY TRACT INFECTION, SITE NOT SPECIFIED; B96.5 - PSEUDOMONAS (MALLEI) CAUSING DISEASES [facility] SNOMED Code(s): 672027975 (3) Altered mental status Current Visit: No Status: Acute Code(s): R41.82 - ALTERED MENTAL STATUS, UNSPECIFIED SNOMED Code(s): 515608419
--- NOTE | 2018-04-18 01:12 | P.HPIM ---
History of Present Illness H&P Date: 04/17/18 Chief Complaint: Altered mental status Patient is a 82-year-old male with a known history of prostate cancer status post radiation, urinary retention currently straight catheterization 4 times daily and frequent urinary tract infections came to ER due to altered mental status. Patient's noted last night that patient has been confused and disoriented and not being himself. Patient also had fever at with at 103 as per his . Patient also hypotensive on admission. Patient does have history of frequent urinary tract infections and most recent urinary tract infection with Enterobacter species. Patient was started on Levaquin in the ER. Currently patient is more awake and oriented is at baseline. Patient's is at bedside. Currently patient is improving clinically. Otherwise denied any chest pain or shortness of breath. No nausea vomiting or abdominal pain no diarrhea or dysuria. Review of Systems Constitutional: Did have fever. No chills . Does have generalized weakness and loss of appetite.. Abdomen: Patient denied nausea vomiting and diarrhea and abdominal pain. Cardiovascular: Patient denies any chest pain or short of breath no palpitations. Respiratory: patient denied any cough is from production. No shortness of breath Neurologic: Patient denied any numbness or tingling headache. Musculoskeletal: Patient denies any complaints of joint swelling or deformity. Skin: Negative Psychiatric: Negative Endocrine: No heat or cold intolerance. No recent weight gain. Genitourinary: No dysuria or hematuria. All other 14 point ROS negative except the above Past Medical History Past Medical History: Cancer, Eye Disorder, Thyroid Disorder Additional Past Medical History / Comment(s): Prostate CA with radiation/ urinary retention/self caths at 9pm and midnight and voids during daytime hours / occasional incontinence of urine, frequent UTIs and has confusion with UTIs, stable pituitary mass, hyponatremia, chronic anemia, bilateral macular degeneration, hypothyroidism, pt's legs are cold all the time. History of Any Multi-Drug Resistant Organisms: Other MDRO Past Surgical History: Adenoidectomy, Tonsillectomy Additional Past Surgical History / Comment(s): EGD/colonoscopy. Past Anesthesia/Blood Transfusion Reactions: No Reported Reaction Smoking Status: Former smoker - Past Family History Father Family Medical History: Cancer Additional Family Medical History / Comment(s): Colon CA, of at 74. Mother Family Medical History: No Reported History, CVA/TIA Additional Family Medical History / Comment(s): Mother of a CVA at the age of 83yrs. Medications and Allergies Home Medications Medication Instructions Recorded Confirmed Type Hydrocortisone [Cortef] 10 mg PO DAILY@1400 07/27/17 04/17/18 History Hydrocortisone [Cortef] 20 mg PO QAM 07/27/17 04/17/18 History Cranberry Fruit Concentrate 1,350 mg PO DAILY 08/28/17 04/17/18 History [Cranberry] Levothyroxine Sodium [Synthroid] 100 mcg PO DAILY 03/18/18 04/17/18 History Methenamine/Sodium Salicylate 1 tab PO DAILY 03/18/18 04/17/18 History [Cystex Plus Tablet] Vit C/E/Zn/Coppr/Lutein/Zeaxan 1 cap PO BID 03/18/18 04/17/18 History [Preservision Areds 2 Softgel] Acetaminophen Tab [Tylenol] 650 mg PO Q6HR PRN tab 03/21/18 04/17/18 Rx L.acidoph,Paracasei, B.lactis 1 cap PO DAILY 04/17/18 04/17/18 History [Probiotic] Allergies Allergy/AdvReac Type Severity Reaction Status Date / Time No Known Allergies Allergy Verified 04/17/18 11:33 Physical Exam Vitals: Vital Signs Temp Pulse Pulse Resp BP BP Pulse Ox 04/17/18 08:34 98.4 F 88 16 114/45 97 04/17/18 07:40 99.1 F 83 20 110/54 99 04/17/18 06:29 82 18 131/60 100 04/17/18 05:50 98.6 F 84 18 109/52 98 04/17/18 05:25 76 18 102/54 98 04/17/18 04:55 76 16 86/50 98 04/17/18 04:28 98.5 F 77 18 85/51 99 04/17/18 04:25 61 18 90/50 99 04/17/18 04:10 78 18 104/51 95 04/17/18 03:55 86 18 95/53 96 04/17/18 03:40 100.7 F H 59 L 18 159/104 94 L Intake and Output 04/16/18 04/17/18 04/17/18 22:59 06:59 14:59 Other: Voiding Method Incontinent Incontinent Self-Catheterization Self-Catheterization Weight 90.718 kg PHYSICAL EXAMINATION: Patient is lying in the bed comfortably, no acute distress, awake alert and oriented.. HEENT: Normocephalic. Neck is supple. Pupils reactive. Nostrils clear. Oral cavity is moist. Ears reveal no drainage. Neck reveals no JVD, carotid bruits, or thyromegaly. CHEST EXAMINATION: Trachea is central. Symmetrical expansion. Lung frey clear to auscultation and percussion. CARDIAC: Normal S1, S2 with no gallops. No murmurs ABDOMEN: Soft. Bowel sounds normal. No organomegaly. No abdominal bruits. Extremities: reveal no edema. No clubbing or cyanosis Neurologically awake, alert, oriented x3 with well-coordinated movements. No focal deficits noted Skin: No rash or skin lesions. Psychiatric: Coperative. Nonsuicidal Musculoskeletal: No joint swelling or deformity. Normal range of motion. Results CBC & Chem 7: 04/17/18 03:55 04/17/18 03:55 Labs: Abnormal Lab Results - Last 24 Hours (Table) 04/17/18 04/17/18 04/17/18 Range/Units 03:55 03:55 04:20 RBC 3.56 L (4.30-5.90) m/uL Hgb 11.6 L (13.0-17.5) gm/dL Hct 33.8 L (39.0-53.0) % Plt Count 142 L (150-450) k/uL Sodium 133 L (137-145) mmol/L BUN 23 H (9-20) mg/dL Calcium 8.1 L (8.4-10.2) mg/dL Total Protein 5.9 L (6.3-8.2) g/dL Albumin 3.2 L (3.5-5.0) g/dL Urine Protein Trace H (Negative) Ur Leukocyte Esterase Moderate H (Negative) Urine WBC 33 H (0-5) /hpf Urine Bacteria Occasional H (None) /hpf Urine Mucus Rare H (None) /hpf Microbiology - Last 24 Hours (Table) 04/17/18 04:20 Urine Culture - Preliminary Urine,Catheterized Thrombosis Risk Factor Assmnt - DVT/VTE Prophylaxis DVT/VTE Prophylaxis: Pharmacologic Prophylaxis ordered - Choose All That Apply Any of the Below Risk Factors Present?: Yes Each Factor Represents 1 point: Obesity (BMI >25), Sepsis (< 1month) Other Risk Factors: Yes Each Risk Factor Represents 2 Points: Malignancy Each Risk Factor Represents 3 Points: Age 75 years or older Other congenital or acquired thrombophilia - If yes, enter type in comment: No Thrombosis Risk Factor Assessment Total Risk Factor Score: 7 Thrombosis Risk Factor Assessment Level: High Risk Assessment and Plan Assessment: Acute complicated urinary tract infection Sepsis secondary to above. Febrile and hypotensive on admission Recurrent urinary tract infection. Most recently with Enterobacter species Previous history of Pseudomonas ear infection infection Prostate cancer status post radiation Urinary retention currently on straight catheterization at home 4 times daily Stable pituitary mass. Currently on cortisone tablets at home Hypothyroidism DVT prophylaxis Plan: Patient will be continued on antibiotics in the form of levofloxacin and follow up final culture reports. ID was consulted. Continue the home medications. Continue the IV hydration and further recommendations based on the clinical course. We will monitor blood pressure and double hydrocortisone dose if continues to be hypotensive. Prognosis is guarded. Discussed with his and daughter at bedside in detail. Time with Patient: Greater than 30
[2018-04-18] MEDS: SODIUM CHLORIDE 0.9% 1,000 ML IV SCH ×3 (02:45→16:57)
[2018-04-18] MEDS ORDERED: LEVOFLOXACIN 750MG-D5W PMX 750 MG in DEXTROSE/WATER 1 150ML.BAG IVPB SCH (07:00)
[2018-04-18 07:53] LABS: Basophils % (A) 0 %; Eosinophils % (A) 1 %; HCT 29.3 % (39.0-53.0); Lymphocytes # (A) 0.9 k/uL (1.0-4.8); Lymphocytes % (A) 16 %; MCH 32.7 pg (25.0-35.0); MCHC 33.7 g/dL (31.0-37.0); MCV 96.9 fL (80.0-100.0); Mean Platelet Volume 6.3; Monocytes # (A) 0.4 k/uL (0-1.0); Monocytes % (A) 7 %; Neutrophils # (A) 4.2 k/uL (1.3-7.7); Neutrophils % (A) 74 %; Platelet Count 108 k/uL (150-450); RBC 3.02 m/uL (4.30-5.90); RDW 13.1 % (11.5-15.5); WBC 5.7 k/uL (3.8-10.6)
[2018-04-18 07:54] LABS: Calcium 7.2 mg/dL (8.4-10.2); Potassium 4.2 mmol/L (3.5-5.1)
[2018-04-18 07:56] LABS: HGB 9.9 gm/dL (13.0-17.5)
[2018-04-18] MEDS: HYDROCORTISONE 10 MG TAB PO SCH ×2 (09:49→13:37)
[2018-04-18] MEDS: LEVOTHYROXINE 100 MCG TAB PO SCH (09:49)
[2018-04-18] MEDS: FAMOTIDINE 20 MG/2 ML VIAL IV SCH (09:49)
--- NOTE | 2018-04-18 12:21 | CDI ---
Last Revision, August 2017 Documentation Clarification Form Date: 04/18/2018 11:52:00 AM From: Rena New RN, CCDS Admit Date: 04/17/2018 6:29:00 AM Patient Name: China Foreman Visit Number: [id number] Discharge Date: ATTENTION: The Clinical Documentation Specialists (CDI) and [facility] Coding Staff appreciate your assistance in clarifying documentation. Please respond to the clarification below the line at the bottom and electronically sign. The CDI & [facility] Coding staff will review the response and follow-up if needed. Please note: Queries are made part of the Legal Health Record. If you have any questions, please contact the author of this message via ITS. Atif Ramachandran MD Altered mental status was documented in the ED evaluation, your H/P and ID consult. Patient history/risk factors: Prostate CA with radiation/urinary retention/self cath, UTIs, Chronic anemia, Clinical Indicators: Present with altered mental status , confused and disoriented and not being himself. Per his he had a fever of 103 at home. He was hypotensive on admission. 159/104 59 18 100.7, 95/53 86 18 96 % 2/L NC Labs: WBC 9.9, BUN 23, CR 1.20, UA: leukocyte Esterase -Moderate, wbc 33, Chest x- Ray: Negative Treatment: Fortaz IV IV Fluids Monitor Labs, Neurological Assessment per protocol In your professional opinion, please clarify the etiology of the altered mental status, if known. Encephalopathy (specify Type: Metabolic, Other, and Underlying Medical Illness) Dementia (if know, specify Type and if with/without Behavioral Disturbance) Other condition (please specify) Unable to determine Please continue to document in your progress notes and discharge summary in order to capture severity of illness and risk of mortality. Include clinical findings that support your diagnosis. Possible metabolic encephalopathy MTDD
[2018-04-18] MEDS: FAMOTIDINE 20 MG TAB PO SCH (19:28)
[2018-04-19] MEDS: SODIUM CHLORIDE 0.9% 1,000 ML IV SCH ×2 (06:00→11:45)
[2018-04-19] MEDS: LEVOTHYROXINE 100 MCG TAB PO SCH (07:27)
[2018-04-19] MEDS: HYDROCORTISONE 10 MG TAB PO SCH ×2 (07:28→13:07)
[2018-04-19] MEDS: FAMOTIDINE 20 MG TAB PO SCH (07:28)
[2018-04-19 15:14] VITALS: BP 164/79; PULSE 76; RESP 17; TEMP 97.9
== END 2018-04-19 16:28 | disposition home or self-care (01) | DRG 871 ==
LOC: EC 03:39 → 4MS4W 06:29
PROVIDERS: ADMIT Internal Medicine; ATTEND Internal Medicine
DX: A41.9 Sepsis, unspecified organism (principal); G93.41 Metabolic encephalopathy; N39.0 Urinary tract infection, site not specified; E03.9 Hypothyroidism, unspecified; H35.30 Unspecified macular degeneration; N13.9 Obstructive and reflux uropathy, unspecified; D64.9 Anemia, unspecified; R32 Unspecified urinary incontinence; I95.9 Hypotension, unspecified; E23.7 Disorder of pituitary gland, unspecified; Z85.46 Personal history of malignant neoplasm of prostate; Z92.3 Personal history of irradiation; Z87.891 Personal history of nicotine dependence; Z87.440 Personal history of urinary (tract) infections; Z79.890 Hormone replacement therapy; Z79.899 Other long term (current) drug therapy; Z80.0 Family history of malignant neoplasm of digestive organs; Z82.3 Family history of stroke
CPT/HCPCS: 36415; 71045; 80048; 80053; 81001; 83605; 84484; 85025; 85610; 85730; 87040; 87077; 87086; 87186; 93005; 96361; 96365; 96375; 99285

== ENCOUNTER 2018-05-18 14:40 | Emergency (ER) | payer MEDICARE, BC ==
[2018-05-18 14:45] VITALS: RESP 18
[2018-05-18] MEDS ORDERED: SODIUM CHLORIDE 0.9% 500 ML IV ONE (15:04)
--- NOTE | 2018-05-18 15:06 | ED ---
General Adult HPI - General Chief complaint: Urogenital Stated complaint: Fever Time Seen by Provider: 05/18/18 14:53 Source: patient Mode of arrival: wheelchair Limitations: no limitations - History of Present Illness Initial comments: Patient is an 82-year-old male presents with a chief complaint of fever, and one episode of emesis today. His and son are with him and stated that he has a history of urinary tract infections, occurring about every month. The patient has a history of urinary obstruction and has to self cath at home. The patient says it is not have any abdominal pain. His states that his fever today was 100.7. The patient cannot identify any other localizing symptoms or pain. - Related Data Home Medications Medication Instructions Recorded Confirmed Hydrocortisone [Cortef] 10 mg PO DAILY@1400 07/27/17 05/18/18 Hydrocortisone [Cortef] 20 mg PO QAM 07/27/17 05/18/18 Vit C/E/Zn/Coppr/Lutein/Zeaxan 1 cap PO BID 03/18/18 05/18/18 [Preservision Areds 2 Softgel] L.acidoph,Paracasei, B.lactis 1 cap PO DAILY 04/17/18 05/18/18 [Probiotic] Levothyroxine Sodium [Synthroid] 100 mcg PO DAILY 05/18/18 05/18/18 Previous Rx's Medication Instructions Recorded Levofloxacin [Levaquin] 750 mg PO DAILY 5 Days #5 tab 05/18/18 Allergies Allergy/AdvReac Type Severity Reaction Status Date / Time No Known Allergies Allergy Verified 05/18/18 15:06 Review of Systems ROS Statement: Those systems with pertinent positive or pertinent negative responses have been documented in the HPI. ROS Other: All systems not noted in ROS Statement are negative. Constitutional: Reports: fever Gastrointestinal: Reports: nausea, vomiting Past Medical History Past Medical History: Cancer, Eye Disorder, Thyroid Disorder Additional Past Medical History / Comment(s): Prostate CA with radiation/ urinary retention/self caths at 9pm and midnight and voids during daytime hours / occasional incontinence of urine, frequent UTIs and has confusion with UTIs, stable pituitary mass, hyponatremia, chronic anemia, bilateral macular degeneration, hypothyroidism, pt's legs are cold all the time. History of Any Multi-Drug Resistant Organisms: Other MDRO Past Surgical History: Adenoidectomy, Tonsillectomy Additional Past Surgical History / Comment(s): EGD/colonoscopy. Past Anesthesia/Blood Transfusion Reactions: No Reported Reaction Past Psychological History: No Psychological Hx Reported Smoking Status: Former smoker Past Alcohol Use History: None Reported Past Drug Use History: None Reported - Past Family History Father Family Medical History: Cancer Additional Family Medical History / Comment(s): Colon CA, at 74. Mother Family Medical History: No Reported History, CVA/TIA Additional Family Medical History / Comment(s): Mother of a CVA at the age of 83yrs. General Exam Limitations: no limitations General appearance: alert, in no apparent distress Head exam: Present: atraumatic, normocephalic Eye exam: Present: normal appearance ENT exam: Present: normal exam Neck exam: Present: normal inspection Respiratory exam: Present: normal lung sounds bilaterally. Absent: respiratory distress, wheezes Cardiovascular Exam: Present: regular rate, normal rhythm GI/Abdominal exam: Present: soft. Absent: distended, tenderness Rectal exam: Present: deferred Extremities exam: Present: normal inspection Back exam: Present: normal inspection Neurological exam: Present: alert, oriented X3 Psychiatric exam: Present: normal affect, normal mood Skin exam: Present: warm, dry, intact Course Vital Signs 05/18/18 14:42 Temperature 98.8 F Pulse Rate 67 Respiratory 18 Rate Blood Pressure 146/71 O2 Sat by Pulse 97 Oximetry Medical Decision Making - Medical Decision Making Patient presents with a chief complaint of fever one episode of emesis. On initial evaluation, vitals are stable, patient is afebrile at this time. Patient is no acute distress. Patient is a history of recurrent urinary tract infections. Herbology reviewed, patient has had Enterobacter, Citrobacter, and resistant pseudomonal species grown out in his urine in the past. Patient to be evaluated with basic labs, and urinalysis. 4:05 PM Evaluation of this patient shows normal white count, and is stable renal function. Urinalysis shows evidence of urinary tract infection. Given patient' s previous infections as noted above, patient was started on Levaquin for 5 days. Culture was sent to evaluate susceptibility. The patient was instructed to follow-up with primary care regarding the culture results as patient has a history of resistant bacteria. Patient was instructed to return to the emergency department for reevaluation if symptoms worsen or change. At this time, the patient's family are agreeable with the care plan. They're clear on signs and symptoms that should prompt immediate return. They were instructed again to follow up in 1-2 days. - Lab Data Result diagrams: 05/18/18 15:28 05/18/18 15:28 Lab Results 05/18/18 05/18/18 05/18/18 Range/Units 15:28 15:28 15:28 WBC 8.4 (3.8-10.6) k/uL RBC 3.88 L (4.30-5.90) m/uL Hgb 12.7 L (13.0-17.5) gm/dL Hct 38.3 L (39.0-53.0) % MCV 98.7 (80.0-100.0) fL MCH 32.6 (25.0-35.0) pg MCHC 33.1 (31.0-37.0) g/dL RDW 13.4 (11.5-15.5) % Plt Count 170 (150-450) k/uL Neutrophils % 71 % Lymphocytes % 19 % Monocytes % 7 % Eosinophils % 1 % Basophils % 1 % Neutrophils # 6.0 (1.3-7.7) k/uL Lymphocytes # 1.6 (1.0-4.8) k/uL Monocytes # 0.6 (0-1.0) k/uL Eosinophils # 0.1 (0-0.7) k/uL Basophils # 0.1 (0-0.2) k/uL Sodium 137 (137-145) mmol/L Potassium 4.7 (3.5-5.1) mmol/L Chloride 103 (98-107) mmol/L Carbon Dioxide 23 (22-30) mmol/L Anion Gap 11 mmol/L BUN 19 (9-20) mg/dL Creatinine 1.06 (0.66-1.25) mg/dL Est GFR (CKD-EPI)AfAm 75 (>60 ml/min/1.73 sqM) Est GFR (CKD-EPI)NonAf 65 (>60 ml/min/1.73 sqM) Glucose 97 (74-99) mg/dL Calcium 8.8 (8.4-10.2) mg/dL Urine Color Light Yellow Urine Appearance Cloudy (Clear) Urine pH 6.0 (5.0-8.0) Ur Specific [place] 1.009 (1.001-1.035) Urine Protein Trace H (Negative) Urine Glucose (UA) Negative (Negative) Urine Ketones Negative (Negative) Urine Blood Small H (Negative) Urine Nitrite Positive (Negative) Urine Bilirubin Negative (Negative) Urine Urobilinogen <2.0 (<2.0) mg/dL Ur Leukocyte Esterase Large H (Negative) Urine RBC 15 H (0-5) /hpf Urine WBC >182 H (0-5) /hpf Urine WBC Clumps Moderate H (None) /hpf Ur Squamous Epith Cells 1 (0-4) /hpf Urine Bacteria Occasional H (None) /hpf Urine Mucus Rare H (None) /hpf Disposition Clinical Impression: UTI (urinary tract infection) Disposition: HOME SELF-CARE Condition: Good Instructions: Urinary Tract Infection in Men (ED) Prescriptions: Levofloxacin [Levaquin] 750 mg PO DAILY 5 Days #5 tab Is patient prescribed a controlled substance at d/c from ED?: No Referrals: Vanessa Oneill MD [Primary Care Provider] - 1-2 days
[2018-05-18 15:38] LABS: Basophils # (A) 0.1 k/uL (0-0.2); Basophils % (A) 1 %; Eosinophils # (A) 0.1 k/uL (0-0.7); Eosinophils % (A) 1 %; HCT 38.3 % (39.0-53.0); HGB 12.7 gm/dL (13.0-17.5); Lymphocytes # (A) 1.6 k/uL (1.0-4.8); Lymphocytes % (A) 19 %; MCH 32.6 pg (25.0-35.0); MCHC 33.1 g/dL (31.0-37.0); MCV 98.7 fL (80.0-100.0); Mean Platelet Volume 6.3; Monocytes # (A) 0.6 k/uL (0-1.0); Monocytes % (A) 7 %; Neutrophils % (A) 71 %; Platelet Count 170 k/uL (150-450); RBC 3.88 m/uL (4.30-5.90); RDW 13.4 % (11.5-15.5); WBC 8.4 k/uL (3.8-10.6)
[2018-05-18 15:46] LABS: Appearance,Urine Cloudy (Clear); Bacteria,Urine Occasional /hpf; Bilirubin,Urine Negative (Negative); Blood,Urine Small (Negative); Color,Urine Light Yellow; Glucose,Urine (UA) Negative (Negative); Ketones,Urine Negative (Negative); Leukocyte Esterase,Urine Large (Negative); Mucus,Urine Rare /hpf; Nitrite,Urine Positive (Negative); Protein,Urine Trace (Negative); RBC,Urine 15 /hpf (0-5); Specific Gravity,Urine 1.009 (1.001-1.035); Squamous Epithelial Cell,Urine 1 /hpf (0-4); Urobilinogen,Urine <2.0 mg/dL (<2.0)
[2018-05-18 15:47] LABS: Calcium 8.8 mg/dL (8.4-10.2); Potassium 4.7 mmol/L (3.5-5.1)
[2018-05-18 16:30] VITALS: BP 168/63; PULSE 72; TEMP 98
== END 2018-05-18 16:25 | disposition home or self-care (01) ==
LOC: EC 14:40
DX: N39.0 Urinary tract infection, site not specified (principal); E03.9 Hypothyroidism, unspecified; Z87.448 Personal history of other diseases of urinary system; Z85.46 Personal history of malignant neoplasm of prostate; Z87.891 Personal history of nicotine dependence; Z79.52 Long term (current) use of systemic steroids; Z79.899 Other long term (current) drug therapy
CPT/HCPCS: 36415; 80048; 81001; 85025; 87077; 87086; 87186; 96360; 99284

== ENCOUNTER 2018-05-18 20:52 | Inpatient (IN) | payer MEDICARE, BC ==
[2018-05-18] MEDS ORDERED: ACETAMINOPHEN TAB 325 MG TAB PO STA (21:11)
--- NOTE | 2018-05-18 21:11 | ED ---
General Adult HPI - General Chief complaint: Weakness Stated complaint: poss sepsis Time Seen by Provider: 05/18/18 20:56 Source: patient, EMS Mode of arrival: EMS Limitations: no limitations - History of Present Illness Initial comments: Kelsi is an 82-year-old male with past medical history of urinary retention requiring straight cath. He was evaluated in our emergency department earlier today for fever and diagnosed with urinary tract infection. At that time labs were unremarkable aside from the UTI and he was discharged home with by mouth Levaquin. Patient reports that he went home, he began feeling very weak and unwell. He attempted to get out of bed and rolled to his side but was too weak to get up. At that time EMS was called to bring him back to the hospital. Patient was found to be febrile with a temperature of 106 on arrival. He seems somewhat confused and limited in ability to provide history. Family didn't feel he was well enough to stay home. Patient denies any chest pain or palpitations, shortness of breath. He reports he just feels very weak and unwell. - Related Data Home Medications Medication Instructions Recorded Confirmed Hydrocortisone [Cortef] 10 mg PO DAILY@1400 07/27/17 05/18/18 Hydrocortisone [Cortef] 20 mg PO QAM 07/27/17 05/18/18 Vit C/E/Zn/Coppr/Lutein/Zeaxan 1 cap PO BID 03/18/18 05/18/18 [Preservision Areds 2 Softgel] L.acidoph,Paracasei, B.lactis 1 cap PO DAILY 04/17/18 05/18/18 [Probiotic] Levothyroxine Sodium [Synthroid] 100 mcg PO DAILY 05/18/18 05/18/18 Previous Rx's Medication Instructions Recorded Levofloxacin [Levaquin] 750 mg PO DAILY 5 Days #5 tab 05/18/18 Allergies Allergy/AdvReac Type Severity Reaction Status Date / Time No Known Allergies Allergy Verified 05/18/18 20:58 Review of Systems ROS Statement: Those systems with pertinent positive or pertinent negative responses have been documented in the HPI. ROS Other: All systems not noted in ROS Statement are negative. Past Medical History Past Medical History: Cancer, Eye Disorder, Thyroid Disorder Additional Past Medical History / Comment(s): Prostate CA with radiation/ urinary retention/self caths at 9pm and midnight and voids during daytime hours / occasional incontinence of urine, frequent UTIs and has confusion with UTIs, stable pituitary mass, hyponatremia, chronic anemia, bilateral macular degeneration, hypothyroidism, pt's legs are cold all the time. History of Any Multi-Drug Resistant Organisms: Other MDRO Past Surgical History: Adenoidectomy, Tonsillectomy Additional Past Surgical History / Comment(s): EGD/colonoscopy. Past Anesthesia/Blood Transfusion Reactions: No Reported Reaction Past Psychological History: No Psychological Hx Reported Smoking Status: Former smoker Past Alcohol Use History: None Reported Past Drug Use History: None Reported - Past Family History Father Family Medical History: Cancer Additional Family Medical History / Comment(s): Colon CA, at 74. Mother Family Medical History: No Reported History, CVA/TIA Additional Family Medical History / Comment(s): Mother of a CVA at the age of 83yrs. General Exam - General Exam Comments Initial Comments: GENERAL: Patient is well-developed and well-nourished. Patient is very warm to the touch, febrile. HENT: Normocephalic, Atraumatic. EYES: The sclera were anicteric and conjunctiva were pink and moist. Extraocular movements were intact and pupils were equal round and reactive to light. Eyelids were unremarkable. PULMONARY: Unlabored respirations. Good breath sounds bilaterally. No audible rales rhonchi or wheezing was noted. CARDIOVASCULAR: There is a regular rate and rhythm without any murmurs gallops or rubs. ABDOMEN: Soft and nontender with normal bowel sounds. SKIN: Skin pale but clear with no lesions or rashes and otherwise unremarkable. NEUROLOGIC: Patient is alert and oriented to person, aware that he has not hospital for the second time today. Uncertain of the date. Confused about events of the day. Cranial nerves II through XII are grossly intact. Motor and sensory are also intact. Normal speech, volume and content. Symmetrical smile. MUSCULOSKELETAL: Normal extremities with adequate strength and full range of motion. No lower extremity swelling or edema. No calf tenderness. LYMPHATICS: No significant lymphadenopathy is noted PSYCHIATRIC: Normal psychiatric evaluation. Limitations: no limitations Limitations: no limitations Course Vital Signs 05/18/18 05/18/18 05/18/18 20:53 21:45 22:06 Temperature 100.6 F H 99.5 F Pulse Rate 81 71 Respiratory 18 18 18 Rate Blood Pressure 129/71 141/66 O2 Sat by Pulse 95 95 Oximetry 05/18/18 22:35 Temperature 97.7 F Pulse Rate 74 Respiratory 16 Rate Blood Pressure 129/57 O2 Sat by Pulse 94 L Oximetry EKG Findings - EKG Comments: EKG Findings:: EKG obtained at 2116, rate is 77, rhythm is sinus, OH is 170, QRS is 140, QTC is 468. When EKG is compared to EKG from last month, there is significantly less ectopy, no significant change in morphology. There is no evidence of acute ST elevations or depressions. Medical Decision Making - Medical Decision Making Patient was seen and evaluated, history was obtained from the patient as well as review of medical record Patient with a known urinary tract infection was seen in our ER layer today and prescribed by mouth Levaquin the patient subsequently returned home but became very weak and unable to get himself out of bed EMS was called to return to the ER was noted to be febrile on arrival and somewhat confused A sepsis workup was initiated, Labs are stable, no leukocytosis, hemoglobin has increased from previous despite IV fluids. At this time I do not feel the patient is safe for discharge home as he feels very weak, unsteady on his feet and is confused. I will plan to place the patient in observation for IV fluid rehydration and IV antibiotics. - Lab Data Result diagrams: 05/18/18 21:15 05/18/18 21:15 Lab Results 05/18/18 05/18/18 05/18/18 Range/Units 21:15 21:15 21:15 WBC 6.7 (3.8-10.6) k/uL RBC 4.09 L (4.30-5.90) m/uL Hgb 13.4 (13.0-17.5) gm/dL Hct 41.0 (39.0-53.0) % MCV 100.2 H (80.0-100.0) fL MCH 32.8 (25.0-35.0) pg MCHC 32.7 (31.0-37.0) g/dL RDW 13.7 (11.5-15.5) % Plt Count 120 L (150-450) k/uL Neutrophils % 76 % Lymphocytes % 13 % Monocytes % 8 % Eosinophils % 1 % Basophils % 0 % Neutrophils # 5.1 (1.3-7.7) k/uL Lymphocytes # 0.9 L (1.0-4.8) k/uL Monocytes # 0.5 (0-1.0) k/uL Eosinophils # 0.1 (0-0.7) k/uL Basophils # 0.0 (0-0.2) k/uL Macrocytosis Slight PT (9.0-12.0) sec INR (<1.2) APTT (22.0-30.0) sec Sodium 134 L (137-145) mmol/L Potassium 4.7 (3.5-5.1) mmol/L Chloride 103 (98-107) mmol/L Carbon Dioxide 22 (22-30) mmol/L Anion Gap 9 mmol/L BUN 18 (9-20) mg/dL Creatinine 1.03 (0.66-1.25) mg/dL Est GFR (CKD-EPI)AfAm 77 (>60 ml/min/1.73 sqM) Est GFR (CKD-EPI)NonAf 67 (>60 ml/min/1.73 sqM) Glucose 95 (74-99) mg/dL Plasma Lactic Acid Garland 1.0 (0.7-2.0) mmol/L Calcium 8.4 (8.4-10.2) mg/dL Total Bilirubin 0.5 (0.2-1.3) mg/dL AST 20 (17-59) U/L ALT 26 (21-72) U/L Alkaline Phosphatase 60 (38-126) U/L Troponin I (0.000-0.034) ng/mL Total Protein 6.4 (6.3-8.2) g/dL Albumin 3.4 L (3.5-5.0) g/dL 05/18/18 05/18/18 Range/Units 21:15 21:15 WBC (3.8-10.6) k/uL RBC (4.30-5.90) m/uL Hgb (13.0-17.5) gm/dL Hct (39.0-53.0) % MCV (80.0-100.0) fL MCH (25.0-35.0) pg MCHC (31.0-37.0) g/dL RDW (11.5-15.5) % Plt Count (150-450) k/uL Neutrophils % % Lymphocytes % % Monocytes % % Eosinophils % % Basophils % % Neutrophils # (1.3-7.7) k/uL Lymphocytes # (1.0-4.8) k/uL Monocytes # (0-1.0) k/uL Eosinophils # (0-0.7) k/uL Basophils # (0-0.2) k/uL Macrocytosis PT 11.3 (9.0-12.0) sec INR 1.2 H (<1.2) APTT 27.8 (22.0-30.0) sec Sodium (137-145) mmol/L Potassium (3.5-5.1) mmol/L Chloride (98-107) mmol/L Carbon Dioxide (22-30) mmol/L Anion Gap mmol/L BUN (9-20) mg/dL Creatinine (0.66-1.25) mg/dL Est GFR (CKD-EPI)AfAm (>60 ml/min/1.73 sqM) Est GFR (CKD-EPI)NonAf (>60 ml/min/1.73 sqM) Glucose (74-99) mg/dL Plasma Lactic Acid Garland (0.7-2.0) mmol/L Calcium (8.4-10.2) mg/dL Total Bilirubin (0.2-1.3) mg/dL AST (17-59) U/L ALT (21-72) U/L Alkaline Phosphatase (38-126) U/L Troponin I <0.012 (0.000-0.034) ng/mL Total Protein (6.3-8.2) g/dL Albumin (3.5-5.0) g/dL Disposition Clinical Impression: Urinary tract infection Disposition: ADMITTED IP TO THIS HOSP Condition: Good Referrals: Vanessa Oneill MD [Primary Care Provider] - 1-2 days
[2018-05-18] MEDS: SODIUM CHLORIDE 0.9% 500 ML IV SCH ×2 (21:19→21:20)
[2018-05-18 21:48] LABS: Basophils % (A) 0 %; Eosinophils # (A) 0.1 k/uL (0-0.7); Eosinophils % (A) 1 %; HGB 13.4 gm/dL (13.0-17.5); Lymphocytes # (A) 0.9 k/uL (1.0-4.8); Lymphocytes % (A) 13 %; MCH 32.8 pg (25.0-35.0); MCHC 32.7 g/dL (31.0-37.0); MCV 100.2 fL (80.0-100.0); Macrocytosis Slight; Mean Platelet Volume 6.2; Monocytes # (A) 0.5 k/uL (0-1.0); Monocytes % (A) 8 %; Neutrophils # (A) 5.1 k/uL (1.3-7.7); Neutrophils % (A) 76 %; Platelet Count 120 k/uL (150-450); RBC 4.09 m/uL (4.30-5.90); RDW 13.7 % (11.5-15.5); WBC 6.7 k/uL (3.8-10.6)
[2018-05-18 21:55] LABS: INR 1.2 (<1.2); Partial Thromboplastin Time 27.8 sec (22.0-30.0); Prothrombin Time 11.3 sec (9.0-12.0)
[2018-05-18 21:56] LABS: Potassium 4.7 mmol/L (3.5-5.1)
--- NOTE | 2018-05-18 21:56 | XR ---
EXAMINATION TYPE: XR chest 2V DATE OF EXAM: 05/18/2018 COMPARISON: 04/17/2018 HISTORY: Weakness. Fell down. TECHNIQUE: Frontal and lateral views of the chest are obtained. FINDINGS: There is no heart failure nor confluent pneumonic infiltrate. Costophrenic angles are zackery r. Heart and mediastinum appear normal. Bony thorax is intact. IMPRESSION: No active cardiopulmonary disease. No change.
[2018-05-18 21:57] LABS: Albumin 3.4 g/dL (3.5-5.0); Calcium 8.4 mg/dL (8.4-10.2); Total Bilirubin 0.5 mg/dL (0.2-1.3); Total Protein 6.4 g/dL (6.3-8.2)
[2018-05-18] MEDS ORDERED: NALOXONE 0.4 MG/ML 1 ML VIAL IV PRN (23:19)
[2018-05-18] MEDS ORDERED: LEVOFLOXACIN 750MG-D5W PMX 750 MG in DEXTROSE/WATER 1 150ML.BAG IVPB STA (23:21)
[2018-05-18 23:34] LABS: Appearance,Urine Cloudy (Clear); Bacteria,Urine Rare /hpf; Bilirubin,Urine Negative (Negative); Blood,Urine Small (Negative); Color,Urine Light Yellow; Glucose,Urine (UA) Negative (Negative); Ketones,Urine Negative (Negative); Leukocyte Esterase,Urine Large (Negative); Mucus,Urine Rare /hpf; Nitrite,Urine Positive (Negative); PH, Urine 5.5 (5.0-8.0); Protein,Urine 1+ (Negative); RBC,Urine 11 /hpf (0-5); Urobilinogen,Urine <2.0 mg/dL (<2.0); WBC,Urine >182 /hpf (0-5)
[2018-05-19] MEDS: SODIUM CHLORIDE 0.9% 1,000 ML IV SCH ×3 (00:03→17:24)
[2018-05-19 09:16] LABS: Basophils % (A) 0 %; Eosinophils # (A) 0.1 k/uL (0-0.7); Eosinophils % (A) 1 %; HCT 32.7 % (39.0-53.0); Lymphocytes # (A) 0.8 k/uL (1.0-4.8); Lymphocytes % (A) 13 %; MCH 33.3 pg (25.0-35.0); MCHC 33.8 g/dL (31.0-37.0); MCV 98.5 fL (80.0-100.0); Mean Platelet Volume 6.3; Monocytes # (A) 0.4 k/uL (0-1.0); Monocytes % (A) 6 %; Neutrophils # (A) 4.8 k/uL (1.3-7.7); Neutrophils % (A) 79 %; Platelet Count 136 k/uL (150-450); RBC 3.31 m/uL (4.30-5.90); RDW 13.2 % (11.5-15.5)
[2018-05-19 09:25] LABS: Potassium 4.3 mmol/L (3.5-5.1)
[2018-05-19] MEDS: PANTOPRAZOLE 40 MG/10 ML VIAL IVP SCH (13:19)
[2018-05-19] MEDS: cefTRIAXone IN SWFI 1,000 MG/10 ML SYRINGE IVP SCH (13:19)
[2018-05-19] MEDS: HYDROCORTISONE SUCCINATE 100 MG/2 ML VIAL IV SCH ×2 (13:19→17:24)
[2018-05-19] MEDS ORDERED: ALPRAZolam 0.25 MG TAB PO PRN (14:09)
[2018-05-19] MEDS ORDERED: ACETAMINOPHEN TAB 500 MG TAB PO PRN (14:09)
--- NOTE | 2018-05-19 14:50 | HP ---
HISTORY AND PHYSICAL DATE OF SERVICE: 05/19/2018. CHIEF COMPLAINT: Weakness, UTI. HISTORY OF PRESENT ILLNESS: This 82-year-old gentleman with a past medical history of multiple medical problems including hypothyroid, history of prostate cancer, radiation, history of recurrent UTIs does straight catheterization at home. The patient has urinary difficulties recently. Patient came to the ER yesterday and the patient was started on oral p.o. Levaquin. Patient went home. Complains of increased tiredness and weakness. Patient apparently fell from the bed last night and patient taken back to [facility] and admitted for further evaluation and treatment. There is no history of any fever, rigors or chills. No history of headache, loss of consciousness, seizures at this time. Previous microbiology showed Citrobacter freundii, Enterobacter cloacae, Pseudomonas Aeruginosa. There is no history of any fever, any rigors or chills at this time. PAST MEDICAL HISTORY: History of hypothyroidism, prostate cancer, continued UTI, tonsillectomy. MEDICATIONS: Prior to admission home medications are: 1. Vitamin CE, zinc 1 p.o. b.i.d. 2. Synthroid 100 mcg p.o. daily. 3. Levaquin 750 p.o. daily. 4. Probiotic 1 capsule b.i.d. 5. Cortef 20 mg q.a.m. and 10 mg daily. ALLERGIES: None. FAMILY HISTORY: History of colon cancer in the family. SOCIAL HISTORY: Previous history of smoking. No history of current alcohol intake or smoking. REVIEW OF SYSTEMS: ENT: Diminished hearing and vision. CARDIOVASCULAR: No angina or palpitations. RESPIRATORY: As mentioned earlier. GI: No nausea or vomiting. no dysuria. CENTRAL NERVOUS SYSTEM: As mentioned earlier. ALLERGY/IMMUNOLOGY: No asthma or hayfever. MUSCULOSKELETAL: As mentioned earlier. HEMATOLOGY/ONCOLOGY: No history of anemia. ENDOCRINE: No history of diabetes or hypothyroidism. CONSTITUTIONAL: As mentioned earlier. DERMATOLOGY: Negative. RHEUMATOLOGY: Negative. PSYCHIATRIC: As mentioned earlier. PHYSICAL EXAMINATION: Alert and oriented times three. Pulse is 63. Blood pressure 130/63, respirations 16, temperature 97 degrees, pulse ox 98% on room air. HEENT: Conjunctivae normal. Oral mucosa moist. Neck is no jugular venous distention. No carotid bruit. No lymph node enlargement. Cardiovascular: S1, S2 muffled. RESPIRATORY: Breath sounds diminished in the bases. No rhonchi. No crackles. ABDOMEN: Soft, nontender. No mass palpable. Legs: No edema. No swelling. NERVOUS SYSTEM: Higher functions as mentioned earlier. Moves all four extremities. Diffusely weak. Lymphatics: No lymph nodes palpable in the neck, axillae or groin. SKIN: No ulcer, rashes or bleeding. LAB STUDIES: WBC 6, hemoglobin is 11. BMP noted. UA noted. ASSESSMENT: 1. Acute urinary tract infection related to straight cath present on admission. 2. Metabolic encephalopathy, acute, possibly secondary to urinary tract infection. 3. Hyponatremia mild. 4. History of recurrent urinary tract infection. 5. History of prostate cancer radiation. 6. History of hypothyroidism. 7. Chronic anemia. 8. Bilateral macular degeneration. 9. History of stable pituitary mass. 10.Hyponatremia. 11.History of adenoidectomy and tonsillectomy. RECOMMENDATIONS AND DISCUSSION: In this 82 -year-old gentleman who presented with multiple complex medical issues, we will continue the current medications, monitor the patient closely, continue the current management, continue symptomatic treatment. Broad-spectrum IV antibiotics cultures. Resume the home medication. PT/OT evaluation, possible ECF rehab. DVT prophylaxis. Proton pump inhibitors. Resume the home medications. Infectious disease evaluation. Prognosis guarded because of multiple complex medical issues. Further recommendations to follow. MMODL / IJN: [id number] / MTDD
--- NOTE | 2018-05-19 17:05 | CONS ---
CONSULTATION DATE OF SERVICE: 05/19/2018. REASON FOR CONSULTATION: Urinary tract infection. HISTORY OF PRESENT ILLNESS: The patient is an 82-year-old male with a past medical history significant for urinary outflow obstruction requiring straight cath in a patient who did have a history of recurrent UTIs, patient presenting to the ER with chief complaints of burning of urine and that he has frequency, irritation and has to self-catheterize himself every 4 hours. Did mention significant cloudy urine or any suprapubic or flank pain. The patient was initially evaluated in the ER. He was noticed to have a UTI. Subsequently discharged home on the oral Levaquin. However, after the patient went home, he began feeling very weak and tired and no energy. Was also noticed to be a fever 103 Fahrenheit. With these symptoms, the patient was brought back to the [facility] ER where the patient has been evaluated by the ER physician. At this time, the patient did have a fever of 100.6. The patient's white count was normal. However, his urine was positive with large with more than 1 to 2 WBC. The patient has been diagnosed with urinary tract infection. He was started on Rocephin. Infectious disease was consulted for further recommendation regarding antibiotic therapy. The patient's last urine culture done at this facility was on 04/17/2018, which did show Citrobacter which was sensitive to ceftriaxone the patient is currently. REVIEW OF SYSTEMS: CONSTITUTIONAL: Positive for weakness along with the fever. Eyes no complaint. ENT no complaint. Respiratory no complaint. Cardiovascular no complaint. Genitourinary as per HPI. Gastrointestinal as per HPI. Musculoskeletal no complaint. Integumentary: No complaint. Psychological no complaint. Endocrine no complaint. Neurologic no complaint. PAST MEDICAL HISTORY: History of prostate cancer, hypothyroidism, pituitary mass, history of recurrent urinary tract infection. PAST SURGICAL HISTORY: Prostate biopsy, radiation therapy to the prostate and cystoscopy. SOCIAL HISTORY: The patient is . Lives with his . No history of smoking, drinking or drug use. FAMILY HISTORY: Father history of colon cancer, at age of 74. ALLERGIES: No known drug allergies. MEDICATIONS: Currently include the patient is on Tylenol, Xanax, Rocephin 1 g daily. He is on folic acid, heparin, Solu-Cortef, Synthroid, Theragran, Narcan, Protonix, Flomax, and vitamin B1. EXAMINATION: Blood pressure 133/53 with a pulse of 63, temperature 97. He is 92% on room air. T- max on admission was 100.6. General description is an elderly male lying in bed in no distress. No tachypnea or accessory muscles of respiration use. HEENT: Shows slight pallor. No scleral icterus. Oral mucosa membranes are moist. No pharyngeal erythema or thrush. Neck: Trachea central. No thyromegaly. LUNGS: Unlabored breathing. Clear to auscultation anteriorly. No wheeze or crackles. Heart S1, S2. Regular rate and rhythm. ABDOMEN: Soft, no tenderness. No guarding. No rigidity. EXTREMITIES: No edema of the feet. Skin examination: No rash or mass palpable. Neurological: Patient is awake, alert, oriented x3. Mood and affect normal. LABS: Hemoglobin is 11, white count 6.0. BUN of 16, creatinine 1.10. Electrolytes have been normal. Urine positive with large leukocyte esterases, more than 1-2 WBC with WBC clumps. Cultures currently pending. Last culture 04/17 was Citrobacter. DIAGNOSTIC IMPRESSION AND PLAN: Patient admitted to the hospital with fever significantly positive UA in a patient who did have a risk factor for recurrent UTI from a causing urine outflow obstruction. Last urine culture was could be the same as the patient's fever seems to respond to Rocephin. PLAN: 1. Rocephin 1 g IV piggyback daily. 2. Gentle IV fluid. 3. Depending upon the clinical response as well as cultures will determine discharge antibiotic. Thank you for this consultation. Will follow this patient along with you. MMODL / IJN: [id number] /
[2018-05-19] MEDS ORDERED: VIT A,C & E-LUTEIN-MINERALS 1 EACH TAB PO SCH (18:00)
[2018-05-19] MEDS: HEPARIN SODIUM,PORCINE 5,000 UNIT/ML 1 ML VIAL SQ SCH (20:09)
[2018-05-20] MEDS: HYDROCORTISONE SUCCINATE 100 MG/2 ML VIAL IV SCH ×4 (00:01→17:43)
[2018-05-20] MEDS: LEVOTHYROXINE 100 MCG TAB PO SCH (05:26)
[2018-05-20] MEDS: SODIUM CHLORIDE 0.9% 1,000 ML IV SCH ×2 (05:27→12:28)
[2018-05-20] MEDS: PANTOPRAZOLE 40 MG/10 ML VIAL IVP SCH (08:00)
[2018-05-20] MEDS: HEPARIN SODIUM,PORCINE 5,000 UNIT/ML 1 ML VIAL SQ SCH ×2 (08:00→20:04)
[2018-05-20] MEDS: TAMSULOSIN 0.4 MG CAP.ER.24H PO SCH (08:00)
[2018-05-20] MEDS: cefTRIAXone IN SWFI 1,000 MG/10 ML SYRINGE IVP SCH (08:02)
[2018-05-20 09:00] LABS: Basophils % (A) 0 %; Eosinophils % (A) 0 %; HGB 11.3 gm/dL (13.0-17.5); Lymphocytes # (A) 1.2 k/uL (1.0-4.8); Lymphocytes % (A) 18 %; MCH 32.5 pg (25.0-35.0); MCHC 32.1 g/dL (31.0-37.0); MCV 101.1 fL (80.0-100.0); Macrocytosis Slight; Mean Platelet Volume 6.4; Monocytes # (A) 0.2 k/uL (0-1.0); Monocytes % (A) 3 %; Neutrophils # (A) 5.2 k/uL (1.3-7.7); Neutrophils % (A) 78 %; Platelet Count 169 k/uL (150-450); RBC 3.46 m/uL (4.30-5.90); RDW 13.5 % (11.5-15.5); WBC 6.6 k/uL (3.8-10.6)
[2018-05-20 09:35] LABS: Calcium 8.4 mg/dL (8.4-10.2); Potassium 3.8 mmol/L (3.5-5.1)
[2018-05-20] MEDS: MULTIVITAMINS, THERA 1 EACH TAB PO SCH (12:30)
[2018-05-20] MEDS: FOLIC ACID 1 MG TAB PO SCH (12:30)
[2018-05-20] MEDS: THIAMINE 100 MG TAB PO SCH (12:30)
[2018-05-20] MEDS: HYDROCORTISONE 10 MG TAB PO SCH (20:04)
--- NOTE | 2018-05-20 20:09 | CT ---
EXAMINATION: CT brain wo con DATE AND TIME: 05/20/2018 7:41 PM CLINICAL INDICATION: pituitory mass Altered mental status. TECHNIQUE: Standard departmental protocol. 1177 COMPARISON: 07/27/2017 FINDINGS: The previously seen pituitary macroadenoma is redemonstrated. There is no other intracrania l mass, and there is no mass effect. The calvarium is intact. There is no intracranial hemorrhage. No definite new intra-axial or extra-axial attenuation defect. The paranasal sinuses, middle ear cavities, and mastoid sinus air cells are clear. The orbits are unremarkable. IMPRESSION: NO DEFINITE ACUTE PROCESS. Note: The ventricular system is more prominent than the sulcal pattern and basal cisterns. This promi nence is [id number] in degree, and stable in appearance. This is a nonspecific finding, but can correlate with a clinical diagnosis of normal pressure hydrocephalus.
--- NOTE | 2018-05-20 20:24 | PN ---
PROGRESS NOTE DATE OF SERVICE: 05/20/2018. INTERVAL HISTORY: This 82-year-old gentleman who was admitted with acute UTI related to straight cath is on IV antibiotics. The final cultures are pending. Urine culture showed gram-negative bacilli. The patient is on IV antibiotics. Infectious Disease is following the patient closely. The patient is on IV Rocephin. PHYSICAL EXAM: Alert and oriented x3. The pulse is 72, blood pressure 119/60, respirations 16, temperature 97.7, pulse ox 97% on room air. HEENT: Conjunctivae normal. Oral mucosa moist. NECK: No jugular venous distention. No carotid bruit. No lymph node enlargement. CARDIOVASCULAR: S1, S2. RESPIRATORY: Breath sounds diminished in the bases. A few scattered rhonchi. ABDOMEN: Soft. NERVOUS SYSTEM: No focal deficits. LABS: WBC 6.2, hemoglobin 11.3. ASSESSMENT: 1. Acute urinary tract infection with gram-negative bacilli related to straight catheterization, present on admission. 2. Metabolic encephalopathy, acute, possibly secondary to urinary tract infection. 3. Hyponatremia, mild, improved. 4. History of recurrent urinary tract infections. 5. History of prostate cancer, radiation. 6. History of hypothyroidism. 7. Chronic anemia. 8. Bilateral macular degeneration. 9. History of stable pituitary mass. 10.Hyponatremia. 11.History of adenoidectomy and tonsillectomy. 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 RECOMMENDATIONS AND DISCUSSION: I recommend to continue current management, monitoring and symptomatic treatment. Otherwise at this time I would also recommend a CT scan of the brain to ensure stability for the pituitary mass as well. See orders for details and we will await the final ID of the organism. Further recommendations to follow. MMODL / IJN: [id number] /
--- NOTE | 2018-05-20 22:08 | P.PN ---
Subjective Progress Note Date: 05/20/18 82 year old male well-known to the infectious disease service for his multiple hospitalizations presents to the emergency center complaints of fever and generalized malaise and weakness in concerns of urinary tract infection. In the ER there was evidence of a urinary tract infection but the patient was stable and was discharged home from the ER with oral antibiotic therapy. The patient relates that he attempt to get out of bed but was so weak he fell out of bed and fell onto the floor. EMS brought him to the hospital. He then had a temperature 101.6 and was very weak. The patient is not received hydration and some antibiotic therapy and is feeling slightly better. He is denying further difficulties except for some injury to his left elbow that is not very painful. No other new complaints. Does relate that although they've been using single-use catheters they've been utilizing multiuse lubricant, which could certainly be part of his current difficulties with his requiring straight catheterizations because of his chronic urinary retention. It is also not clear if he actually is straight cathing on a specific schedule throughout the day to limit bladder volume and risk of infection. Objective - Vital Signs Vital signs: Vital Signs Temp 97.7 F 05/20/18 14:00 Pulse 72 05/20/18 14:00 Resp 16 05/20/18 14:00 BP 119/61 05/20/18 14:00 Pulse Ox 97 05/20/18 14:00 Intake & Output 05/20/18 05/20/18 05/21/18 06:59 18:59 06:59 Intake Total 1180 1460 Output Total 500 300 Balance 680 1160 Weight 90.718 kg Intake: Intake, IV Titration 1100 Amount Sodium Chloride 0.9% 1, 1100 000 ml @ 100 mls/hr IV . Q10H [facility] Rx#:[id number] Oral 1180 360 Output: Urine 500 300 Straight 500 300 Other: Voiding Method Toilet Self-Catheterization Self-Catheterization # Voids 3 5 - Exam Pleasant 82-year-old male who is comfortable at this point in time. His mentation is quite sharp at this time HEENT: Anicteric conjunctiva are pink and moist nasal mucosa grossly intact without significant lesions, there is no thrush. Neck: The neck is supple without significant lymphadenopathy or thyromegaly. Lungs: Good bilateral air entry without significant crackles or wheezing. There is no significant bronchial sounds. There is no egophony or dullness. Heart: Regular rate and rhythm with an audible S1-S2, no S3 no S4. There is no significant murmur click or rub, PMI was nondisplaced. Abdomen: Positive bowel sounds soft and nontender without palpable masses or organomegaly. There was no guarding or rebound. Extremities: The upper extremities have excellent pulses they are symmetric, no significant petechiae or telangiectasia. No splinter hemorrhages were noted. Lower extremities have some edema but no ulcerations are seen Neuro: Awake alert oriented to person, place and year, recognizes me by name. - Labs CBC & Chem 7: 05/20/18 08:31 05/20/18 08:31 Labs: Abnormal Lab Results - Last 24 Hours (Table) 05/20/18 05/20/18 Range/Units 08:31 08:31 RBC 3.46 L (4.30-5.90) m/uL Hgb 11.3 L (13.0-17.5) gm/dL Hct 35.0 L (39.0-53.0) % MCV 101.1 H (80.0-100.0) fL Glucose 135 H (74-99) mg/dL Microbiology - Last 24 Hours (Table) 05/18/18 23:20 Urine Culture - Preliminary Urine,Catheterized Gram Neg Bacilli 05/18/18 21:15 Blood Culture - Preliminary Blood No Growth after 24 hours Laboratory Results WBC 6.6 k/uL (3.8-10.6) 05/20/18 08:31 RBC 3.46 m/uL (4.30-5.90) L 05/20/18 08:31 Hgb 11.3 gm/dL (13.0-17.5) L 05/20/18 08:31 Hct 35.0 % (39.0-53.0) L 05/20/18 08:31 MCV 101.1 fL (80.0-100.0) H 05/20/18 08:31 MCH 32.5 pg (25.0-35.0) 05/20/18 08:31 MCHC 32.1 g/dL (31.0-37.0) 05/20/18 08:31 RDW 13.5 % (11.5-15.5) 09/17/18 08:31 Plt Count 169 k/uL (150-450) 05/20/18 08:31 Neutrophils % 78 % 05/20/18 08:31 Lymphocytes % 18 % 05/20/18 08:31 Monocytes % 3 % 05/20/18 08:31 Eosinophils % 0 % 05/20/18 08:31 Basophils % 0 % 05/20/18 08:31 Neutrophils # 5.2 k/uL (1.3-7.7) 05/20/18 08:31 Lymphocytes # 1.2 k/uL (1.0-4.8) 05/20/18 08:31 Monocytes # 0.2 k/uL (0-1.0) 05/20/18 08:31 Eosinophils # 0.0 k/uL (0-0.7) 05/20/18 08:31 Basophils # 0.0 k/uL (0-0.2) 05/20/18 08:31 Macrocytosis Slight 05/20/18 08:31 PT 11.3 sec (9.0-12.0) 05/18/18 21:15 INR 1.2 (<1.2) H 05/18/18 21:15 APTT 27.8 sec (22.0-30.0) 05/18/18 21:15 Sodium 139 mmol/L (137-145) 05/20/18 08:31 Potassium 3.8 mmol/L (3.5-5.1) 05/20/18 08:31 Chloride 107 mmol/L (98-107) 05/20/18 08:31 Carbon Dioxide 22 mmol/L (22-30) 05/20/18 08:31 Anion Gap 10 mmol/L 05/20/18 08:31 BUN 15 mg/dL (9-20) 05/20/18 08:31 Creatinine 1.07 mg/dL (0.66-1.25) 05/20/18 08:31 Est GFR (CKD-EPI)AfAm 74 (>60 ml/min/1.73 sqM) 05/20/18 08:31 Est GFR (CKD-EPI)NonAf 64 (>60 ml/min/1.73 sqM) 05/20/18 08:31 Glucose 135 mg/dL (74-99) H 05/20/18 08:31 Plasma Lactic Acid [place] 1.0 mmol/L (0.7-2.0) 05/18/18 21:15 Calcium 8.4 mg/dL (8.4-10.2) 05/20/18 08:31 Total Bilirubin 0.5 mg/dL (0.2-1.3) 05/18/18 21:15 AST 20 U/L (17-59) 05/18/18 21:15 ALT 26 U/L (21-72) 05/18/18 21:15 Alkaline Phosphatase 60 U/L (38-126) 05/18/18 21:15 Troponin I <0.012 ng/mL (0.000-0.034) 05/18/18 21:15 Total Protein 6.4 g/dL (6.3-8.2) 05/18/18 21:15 Albumin 3.4 g/dL (3.5-5.0) L 05/18/18 21:15 Urine Color Light Yellow 05/18/18 23:20 Urine Appearance Cloudy (Clear) 05/18/18 23:20 Urine pH 5.5 (5.0-8.0) 05/18/18 23:20 Ur Specific [place] 1.010 (1.001-1.035) 05/18/18 23:20 Urine Protein 1+ (Negative) H 05/18/18 23:20 Urine Glucose (UA) Negative (Negative) 05/18/18 23:20 Urine Ketones Negative (Negative) 05/18/18 23:20 Urine Blood Small (Negative) H 05/18/18 23:20 Urine Nitrite Positive (Negative) 05/18/18 23:20 Urine Bilirubin Negative (Negative) 05/18/18 23:20 Urine Urobilinogen <2.0 mg/dL (<2.0) 05/18/18 23:20 Ur Leukocyte Esterase Large (Negative) H 05/18/18 23:20 Urine RBC 11 /hpf (0-5) H 05/18/18 23:20 Urine WBC >182 /hpf (0-5) H 05/18/18 23:20 Urine WBC Clumps Many /hpf (None) H 05/18/18 23:20 Urine Bacteria Rare /hpf (None) H 05/18/18 23:20 Urine Mucus Rare /hpf (None) H 05/18/18 23:20 Microbiology 05/18/18 23:20 Urine,Catheterized Urine Culture - Preliminary Gram Neg Bacilli 05/18/18 21:15 Blood Blood Culture - Preliminary No Growth after 24 hours Assessment and Plan (1) Gram negative sepsis Narrative/Plan: 82-year-old male presents to Hospital with significant weakness, had been to the emergency center diagnosis of the UTI despite treatment became very weak and rolled out of bed onto the floor. He now is admitted for treatment of his underlying sepsis from urinary system which is gram-negative in nature. Based on prior cultures he has been placed on Rocephin to be helping quite a bit. Is also receiving some stress doses of hydrocortisone to try to improve his functional status. He does seem to be quite interactive today. Appetite is adequate. Denies other new acute complaints. High-grade fever has improved. Patient will likely need outpatient intravenous antibiotic therapy at discharge unclear if this will be at home or extended care depending on how he is functioning. Patient and family been educated on the need of cleaning catheter every time for straight cath, and fresh lubricant every time to prevent cross contamination and ongoing infections. For the bilateral lower extremity edema JEANNE hose are requested. Will consult with the binder caser for potential outpatient antibiotic therapy. Current Visit: Yes Status: Acute Code(s): A41.50 - GRAM-NEGATIVE SEPSIS, UNSPECIFIED SNOMED Code(s): 520593467 (2) Urinary tract infection Current Visit: Yes Status: Acute Code(s): N39.0 - URINARY TRACT INFECTION, SITE NOT SPECIFIED SNOMED Code(s): 08560486
--- NOTE | 2018-05-20 23:23 | PN ---
PROGRESS NOTE DATE OF SERVICE: 05/20/2018 REASON FOR FOLLOWUP: Urinary tract infection. INTERVAL HISTORY: The patient is currently afebrile. He is breathing comfortably. Denies significant chest pain or shortness of breath or cough. The abdominal pain has improved. Currently waiting for the urine culture to finalize for discharge antibiotics. EXAMINATION: Blood pressure 119/61 with a pulse of 72, temperature is 97.7. He is 97% on room air. General description is an elderly male up in the chair in no distress. RESPIRATORY SYSTEM: Unlabored breathing, clear to auscultation anteriorly. HEART: S1, S2. Regular rate and rhythm. ABDOMEN: Soft, no tenderness. EXTREMITIES: No edema of the feet. LABS: Hemoglobin 11.2, white count 6.6 with a BUN of 15, creatinine 1.07. DIAGNOSTIC IMPRESSION AND PLAN: Patient with gram-negative urinary tract infection. The patient did have urine outflow obstruction requiring catheterization. Urine is currently showing gram-negative. We will keep the patient on Rocephin possible while waiting for the culture to finalize to determine discharge antibiotics. Continue supportive care. MMODL / IJN: [id number] /
[2018-05-21] MEDS: SODIUM CHLORIDE 0.9% 1,000 ML IV SCH (02:59)
[2018-05-21] MEDS: LEVOTHYROXINE 100 MCG TAB PO SCH (05:58)
[2018-05-21] MEDS: TAMSULOSIN 0.4 MG CAP.ER.24H PO SCH (07:53)
[2018-05-21] MEDS: HEPARIN SODIUM,PORCINE 5,000 UNIT/ML 1 ML VIAL SQ SCH ×2 (07:53→20:27)
[2018-05-21] MEDS: cefTRIAXone IN SWFI 1,000 MG/10 ML SYRINGE IVP SCH (07:53)
[2018-05-21] MEDS: PANTOPRAZOLE 40 MG TABLET PO SCH (07:53)
[2018-05-21] MEDS: HYDROCORTISONE 10 MG TAB PO SCH ×2 (07:54→15:48)
[2018-05-21 08:22] LABS: Calcium 8.1 mg/dL (8.4-10.2); Potassium 3.4 mmol/L (3.5-5.1)
[2018-05-21 08:23] LABS: Basophils % (A) 0 %; Eosinophils % (A) 1 %; HCT 29.6 % (39.0-53.0); Lymphocytes # (A) 1.6 k/uL (1.0-4.8); Lymphocytes % (A) 29 %; MCHC 33.6 g/dL (31.0-37.0); MCV 98.4 fL (80.0-100.0); Mean Platelet Volume 6.6; Monocytes # (A) 0.3 k/uL (0-1.0); Monocytes % (A) 6 %; Neutrophils # (A) 3.5 k/uL (1.3-7.7); Neutrophils % (A) 64 %; Platelet Count 164 k/uL (150-450); RBC 3.01 m/uL (4.30-5.90); RDW 13.5 % (11.5-15.5); WBC 5.5 k/uL (3.8-10.6)
[2018-05-21] MEDS: FOLIC ACID 1 MG TAB PO SCH (12:04)
[2018-05-21] MEDS: THIAMINE 100 MG TAB PO SCH (12:04)
[2018-05-21] MEDS: MULTIVITAMINS, THERA 1 EACH TAB PO SCH (12:04)
--- NOTE | 2018-05-21 13:52 | PN ---
PROGRESS NOTE DATE OF SERVICE: 05/21/2018 REASON FOR FOLLOWUP: E. coli urinary tract infection. INTERVAL HISTORY: The patient is currently afebrile. He is breathing comfortably. Denies having any chest pain or shortness of breath. No cough, no abdominal pain. Urinary symptoms have improved. PHYSICAL EXAMINATION: Blood pressure 135/73 with a pulse of 86, temperature 97.4. He is 94% on room air. General description is an elderly male, up in the bed in no distress. RESPIRATORY SYSTEM: Unlabored breathing, clear to auscultation anteriorly. HEART: S1, S2. Regular rate and rhythm. ABDOMEN: Soft, no tenderness. LABS: Hemoglobin is 10, white count 5.5, BUN of 18, creatinine 0.95. Urine finalized with an E coli that is sensitive pathogen. Blood culture has been negative. DIAGNOSTIC IMPRESSION AND PLAN: Patient with Escherichia coli urinary tract infection with sensitive pathogen. The patient has received 3 days of IV Rocephin. He has 4 days oral Levaquin that he can start taking tomorrow to finish his course of therapy. Continue supportive care. MMODL / IJN: [id number] /
[2018-05-21] MEDS: DOCUSATE 100 MG CAP PO SCH (20:27)
[2018-05-22] MEDS: SODIUM CHLORIDE 0.9% 1,000 ML IV SCH (00:25)
[2018-05-22] MEDS: LEVOTHYROXINE 100 MCG TAB PO SCH (05:42)
[2018-05-22] MEDS: HYDROCORTISONE 10 MG TAB PO SCH ×2 (08:26→11:51)
[2018-05-22] MEDS: DOCUSATE 100 MG CAP PO SCH (08:26)
[2018-05-22] MEDS: PANTOPRAZOLE 40 MG TABLET PO SCH (08:27)
[2018-05-22] MEDS: TAMSULOSIN 0.4 MG CAP.ER.24H PO SCH (08:27)
[2018-05-22] MEDS: HEPARIN SODIUM,PORCINE 5,000 UNIT/ML 1 ML VIAL SQ SCH (08:27)
[2018-05-22] MEDS: cefTRIAXone IN SWFI 1,000 MG/10 ML SYRINGE IVP SCH (08:28)
[2018-05-22 09:23] LABS: Basophils % (A) 0 %; Eosinophils # (A) 0.2 k/uL (0-0.7); Eosinophils % (A) 3 %; HCT 33.5 % (39.0-53.0); Lymphocytes # (A) 2.2 k/uL (1.0-4.8); Lymphocytes % (A) 32 %; MCH 32.7 pg (25.0-35.0); MCHC 32.9 g/dL (31.0-37.0); MCV 99.5 fL (80.0-100.0); Mean Platelet Volume 6.1; Monocytes # (A) 0.3 k/uL (0-1.0); Monocytes % (A) 4 %; Neutrophils # (A) 4.1 k/uL (1.3-7.7); Neutrophils % (A) 60 %; Platelet Count 185 k/uL (150-450); RBC 3.37 m/uL (4.30-5.90); RDW 13.6 % (11.5-15.5); WBC 6.8 k/uL (3.8-10.6)
[2018-05-22 09:37] LABS: Calcium 8.6 mg/dL (8.4-10.2); Potassium 3.7 mmol/L (3.5-5.1)
[2018-05-22] MEDS ORDERED: BISACODYL 10 MG SUPP RECTAL STA (11:02)
[2018-05-22] MEDS ORDERED: POLYETHYLENE GLYCOL 3350 17 GM POWD.PACK PO SCH (11:15)
[2018-05-22] MEDS: MULTIVITAMINS, THERA 1 EACH TAB PO SCH (11:51)
[2018-05-22] MEDS: THIAMINE 100 MG TAB PO SCH (11:51)
[2018-05-22] MEDS: FOLIC ACID 1 MG TAB PO SCH (11:52)
[2018-05-22 12:28] VITALS: BP 143/101; PULSE 69; RESP 20; TEMP 97.4
--- NOTE | 2018-05-22 15:09 | P.CN ---
Psychiatric Consult - . Consult date: 05/22/18 Consult:: Dementia? 82 year old male well-known to the infectious disease service for his multiple hospitalizations presents to the emergency center complaints of fever and generalized malaise and weakness in concerns of urinary tract infection. In the ER there was evidence of a urinary tract infection but the patient was stable and was discharged home from the ER with oral antibiotic therapy. The patient relates that he attempt to get out of bed but was so weak he fell out of bed and fell onto the floor. EMS brought him to the hospital. He then had a temperature 101.6 and was very weak. The patient is not received hydration and some antibiotic therapy and is feeling slightly better. He is denying further difficulties except for some injury to his left elbow that is not very painful. No other new complaints. Does relate that although they've been using single-use catheters they've been utilizing multiuse lubricant, which could certainly be part of his current difficulties with his requiring straight catheterizations because of his chronic urinary retention. It is also not clear if he actually is straight cathing on a specific schedule throughout the day to limit bladder volume and risk of infection. Review of Systems ROS Statement: Those systems with pertinent positive or pertinent negative responses have been documented in the HPI. ROS Other: All systems not noted in ROS Statement are negative. Past Medical History Past Medical History: Cancer, Eye Disorder, Thyroid Disorder Additional Past Medical History / Comment(s): Prostate CA with radiation/ urinary retention/self caths at 9pm and midnight and voids during daytime hours / occasional incontinence of urine, frequent UTIs and has confusion with UTIs, stable pituitary mass, hyponatremia, chronic anemia, bilateral macular degeneration, hypothyroidism, pt's legs are cold all the time. History of Any Multi-Drug Resistant Organisms: Other MDRO Past Surgical History: Adenoidectomy, Tonsillectomy Additional Past Surgical History / Comment(s): EGD/colonoscopy. Past Anesthesia/Blood Transfusion Reactions: No Reported Reaction Past Psychological History: No Psychological Hx Reported Smoking Status: Former smoker Past Alcohol Use History: None Reported Past Drug Use History: None Reported - Past Family History Father Family Medical History: Cancer Additional Family Medical History / Comment(s): Colon CA, at 74. Mother Family Medical History: No Reported History, CVA/TIA Additional Family Medical History / Comment(s): Mother of a CVA at the age of 83yrs. Mental status examination: This is a pleasant 82-year-old male who has a history of somewhat inappropriate behavior at home and . He clearly is oriented to himself confabulates and redirects about place, not able to answer date or time and knows that he fell at home and came into the hospital after his called 911. He is calmly laying in bed playing with his glasses and having his cell phone illness abdomen. He is not agitated and states she is not depressed nor suicidal. Affect is congruent with his euthymic confused presentation. He denies any auditory or visual hallucinations however he is clearly has deficits in short-term memory and may suffer from sundowning at bedtime. He is being placed at [facility] and there was consideration for whether he is actively suicidal homicidal she is not. He clearly isn't not able to contribute to his own care due to her inability to focus and concentrate. Clinical impression: Dementia, neurocognitive disorder moderate Recommendations: He is appropriate to place a [facility] [place] and and has difficulty making decisions at the present time. Might be of interest when he does get agitated use Risperdal 0.25 mg by mouth when necessary at bedtime for any imminent sundowning that does occur. At 82 years of age starting medication such as Aricept or Namenda which may be of benefit on an outpatient basis but I see no acute psychosis and agitation current time thus I feel that he would be able to be placed. trolley worker is following up on placement and also guardianship. Thank you for the consult have a great day Kvng Kamara DO PhD 05/22/18 13:12 05/22/18 15:02 05/22/18 15:07
--- NOTE | 2018-05-22 15:29 | PN ---
PROGRESS NOTE DATE OF SERVICE: 05/22/2018 REASON FOR FOLLOWUP: E. coli urinary tract infection. INTERVAL HISTORY: The patient is currently afebrile. He is currently waiting for Psych evaluation for before discharge. The patient denies having any chest pain, shortness of breath, cough. No abdominal pain. No urinary symptoms and is eager to go home. PHYSICAL EXAMINATION: Blood pressure 143/100 with a pulse of 69, temperature 97.4. He is 96% on room air. General description is an elderly male up in the chair, in no distress. RESPIRATORY SYSTEM: Unlabored breathing, clear to auscultation anteriorly. HEART: S1, S2. Regular rate and rhythm. ABDOMEN: Soft, no tenderness. EXTREMITIES: No edema of the feet. LABS: Hemoglobin is 11, white count of 6.8. BUN of 19, creatinine 1.02. DIAGNOSTIC IMPRESSION AND PLAN: Patient with Escherichia coli urinary tract infection complicated the patient did have urinary outflow obstruction by self-catheterization. The patient received about 4 days of IV Rocephin. He has 4 days of oral Levaquin at home that he can take to finish a course of therapy. Continue supportive care. MMODL / IJN: [id number] /
--- NOTE | 2018-05-22 15:54 | P.PN ---
Subjective Progress Note Date: 05/21/18 Principal diagnosis: E. coli urinary tract infection Patient is a 82-year-old male with a known history of recurrent urinary tract infection, history of prostate cancer and radiation and chronic urinary retention on straight catheterization at home was admitted to the hospital with acute urinary tract infection. CT head showed no acute intracranial process. 05/21/2018 Urine culture is showing E. coli. Patient can be be continued on levofloxacin as outpatient as per ID recommendations. Patient otherwise denied any complaints of nausea vomiting or abdominal pain. No diarrhea. No dysuria. No hematemesis or melena. No fever no chills. Discussed with his at bedside in detail. Patient apparently has been violent sometimes at home and his is very concerned about it. Psychiatry was consulted for further evaluation. Patient denied any chest pain or shortness of breath as well. All other review of systems negative except the above. Current medications reviewed Objective - Vital Signs Vital signs: Vital Signs Temp 97.8 F 05/22/18 05:00 Pulse 57 L 05/22/18 05:00 Resp 16 05/22/18 05:00 BP 133/70 05/22/18 05:00 Pulse Ox 93 L 05/22/18 05:00 Intake & Output 05/21/18 05/22/18 05/22/18 18:59 06:59 18:59 Intake Total 200 590 Output Total 650 300 500 Balance -450 290 -500 Weight 98.5 kg Intake: Intake, IV Titration 200 Amount Sodium Chloride 0.9% 1, 200 000 ml @ 50 mls/hr IV . Q20H [facility] Rx#:[id number] Oral 590 Output: Urine 650 300 500 Straight 650 300 500 Other: Voiding Method Diaper Toilet Incontinent Diaper Self-Catheterization Incontinent Self-Catheterization # Voids 3 2 - Exam PHYSICAL EXAMINATION: Patient is lying in the bed comfortably, no acute distress, awake alert and oriented.. HEENT: Normocephalic. Neck is supple. Pupils reactive. Nostrils clear. Oral cavity is moist. Ears reveal no drainage. Neck reveals no JVD, carotid bruits, or thyromegaly. CHEST EXAMINATION: Trachea is central. Symmetrical expansion. Lung frey clear to auscultation and percussion. CARDIAC: Normal S1, S2 with no gallops. No murmurs ABDOMEN: Soft. Bowel sounds normal. No organomegaly. No abdominal bruits. Extremities: reveal no edema. No clubbing or cyanosis Neurologically awake, alert, oriented x3 with well-coordinated movements. No focal deficits noted Skin: No rash or skin lesions. Psychiatric: Coperative. Nonsuicidal Musculoskeletal: No joint swelling or deformity. Normal range of motion. - Labs CBC & Chem 7: 05/22/18 09:01 05/22/18 09:01 Labs: Abnormal Lab Results - Last 24 Hours (Table) 05/22/18 05/22/18 Range/Units 09: 09:01 RBC 3.37 L (4.30-5.90) m/uL Hgb 11.0 L (13.0-17.5) gm/dL Hct 33.5 L (39.0-53.0) % Glucose 114 H (74-99) mg/dL Microbiology - Last 24 Hours (Table) 05/18/18 21:15 Blood Culture - Preliminary Blood No Growth after 72 hours 05/18/18 23:20 Urine Culture - Final Urine,Catheterized Escherichia coli Assessment and Plan Assessment: Acute urinary tract infection with E. coli. Chronic urinary retention on straight catheterization at home Metabolic encephalopathy acute possibly secondary to infection Hyponatremia improved History of recurrent urinary tract infections History of prostate cancer status post radiation previously Hypothyroidism Chronic anemia Bilateral macular degeneration History of stable pituitary mass Chronic adrenal insufficiency Hyponatremia Acutely microadenoma History of adenoidectomy and tonsillectomy. Plan: Patient will be continued on antibiotics in the form of ceftriaxone. Can be changed back to Levaquin for 4 more days as per ID recommendations. Due to patient's behavioral changes and agitation at home on and off, psychiatric consult has been requested. We will continue to follow closely and further recommendations based on the clinical course. Time with Patient: Greater than 30
--- NOTE | 2018-05-27 12:04 | CDI ---
Documentation Clarification Form Date: 05/27/2018 11:30:18 AM From: Alejandrinakoko Kovacs Phone: If you have a question about this query, please contact Cecelia Mckeon, Home Health Care Coordinator at [phone] between 8am and 5pm. Admit Date: 05/21/2018 10:37:00 AM Patient Name: China Foreman Visit Number: [id number] Discharge Date: 05/22/2018 ATTENTION: The Clinical Documentation Specialists (CDI) and [facility] Coding Staff appreciate your assistance in clarifying documentation. Please respond to the clarification below the line at the bottom and electronically sign. The CDI & [facility] Coding staff will review the response and follow-up if needed. Please note: Queries are made part of the Legal Health Record. If you have any questions, please contact the author of this message via ITS. Atif Sol MD Documentation in the record shows patient admitted to observation on 05/19/2018 and made IP on 05/21/2018. Chief complaint on 05/19 was weakness and UTI due to straight cauterization. History/Risk Factors: Obstructive uropathy/retention; history of prostate CA w/ radiation. Clinical Indicators: vitals 05/19 pulse 63, BP 130/63, temp 97. Urine grew e- coli. Treatment: Broad spectrum IV antibiotics Consultation dated 05/19; Infectious disease documents gram-negative sepsis In your professional opinion, please clarify the reason patient made IP status? Gram-negative sepsis E-Coli UTI due to straight catheterization Other , please clarify Unable to determine E-Coli UTI due to straight catheterization MTDD
--- NOTE | 2018-06-04 12:45 | P.DS ---
Providers Date of admission: 05/21/18 10:37 Expected date of discharge: 05/22/18 Attending physician: Sam Cortez Consults: 05/19/18 10:51 Consult Physician Routine Consulting Provider: Carolina Fitzpatrick Consult Reason/Comments: uti Do you want consulting provider notified?: Yes 05/21/18 13:51 Consult Physician Routine Consulting Provider: Kvng Kamara Consult Reason/Comments: depression,?dementia Do you want consulting provider notified?: Yes Primary care physician: Vanessa Oneill Hospital Course: Discharge diagnosis Acute urinary tract infection with E. coli. Chronic urinary retention on straight catheterization at home Metabolic encephalopathy acute possibly secondary to infection Hyponatremia improved History of recurrent urinary tract infections History of prostate cancer status post radiation previously Hypothyroidism Chronic anemia Bilateral macular degeneration History of stable pituitary mass Chronic adrenal insufficiency Hyponatremia Acutely microadenoma History of adenoidectomy and tonsillectomy. Hospital course Patient is a 82-year-old male with a known history of recurrent urinary tract infection, history of prostate cancer and radiation and chronic urinary retention on straight catheterization at home was admitted to the hospital with acute urinary tract infection. CT head showed no acute intracranial process. 05/21/2018 Urine culture is showing E. coli. Patient can be be continued on levofloxacin as outpatient as per ID recommendations. Patient otherwise denied any complaints of nausea vomiting or abdominal pain. No diarrhea. No dysuria. No hematemesis or melena. No fever no chills. Discussed with his at bedside in detail. Patient apparently has been violent sometimes at home and his is very concerned about it. Psychiatry was consulted for further evaluation. Patient denied any chest pain or shortness of breath as well. 05/22/2018 Patient denied any complains of chest pain or shortness of breath. Patient was to be discharged home. Patient was seen by psychiatric and was noted that patient has difficulty making his own durations. Discussed with his and social work and patient would benefit from transfer to extended care facility. Otherwise patient denied any new complaints. No acute overnight issues. Patient refused to be discharged to extended care facility. Discussed with his in detail. Patient's wants to be discharged home at this time. Patient will be discharged home as per patient wishes and off and discussed with his .. Plan: Patient was continued on antibiotics in the form of ceftriaxone. Patient will need levofloxacin 750 mg daily as per ID recommendations for 4 more days. PHYSICAL EXAMINATION: Patient is lying in the bed comfortably, no acute distress, awake alert and oriented.. HEENT: Normocephalic. Neck is supple. Pupils reactive. Nostrils clear. Oral cavity is moist. Ears reveal no drainage. Neck reveals no JVD, carotid bruits, or thyromegaly. CHEST EXAMINATION: Trachea is central. Symmetrical expansion. Lung frey clear to auscultation and percussion. CARDIAC: Normal S1, S2 with no gallops. No murmurs ABDOMEN: Soft. Bowel sounds normal. No organomegaly. No abdominal bruits. Extremities: reveal no edema. No clubbing or cyanosis Neurologically awake, alert, oriented x3 with well-coordinated movements. No focal deficits noted Skin: No rash or skin lesions. Psychiatric: Coperative. Nonsuicidal Musculoskeletal: No joint swelling or deformity. Normal range of motion. Vital Signs 05/22/18 05/22/18 05/22/18 08:40 12:27 15:51 Temperature 97.4 F L Pulse Rate [ 57 L 69 69 Pulse Oximetery ] Respiratory 16 20 20 Rate Blood Pressure 143/101 [Right Arm] O2 Sat by Pulse 96 Oximetry Total time taken greater than 35 minutes including 18 minutes for counseling and coordination of care. Patient Condition at Discharge: Good Plan - Discharge Summary Discharge Rx Participant: No New Discharge Prescriptions: New Docusate [Colace] 100 mg PO BID PRN #30 cap PRN Reason: Constipation risperiDONE 0.25 mg PO HS PRN #5 tablet PRN Reason: Agitation Continue Hydrocortisone [Cortef] 10 mg PO DAILY@1400 Hydrocortisone [Cortef] 20 mg PO QAM Vit C/E/Zn/Coppr/Lutein/Zeaxan [Preservision Areds 2 Softgel] 1 cap PO BID L.acidoph,Paracasei, B.lactis [Probiotic] 1 cap PO DAILY Levothyroxine Sodium [Synthroid] 100 mcg PO DAILY Levofloxacin [Levaquin] 750 mg PO DAILY 4 Days tab Discharge Medication List Hydrocortisone [Cortef] 10 mg PO DAILY@1400 07/27/17 [History] Hydrocortisone [Cortef] 20 mg PO QAM 07/27/17 [History] Vit C/E/Zn/Coppr/Lutein/Zeaxan [Preservision Areds 2 Softgel] 1 cap PO BID 03/18 [History] L.acidoph,Paracasei, B.lactis [Probiotic] 1 cap PO DAILY 04/17/18 [History] Levothyroxine Sodium [Synthroid] 100 mcg PO DAILY 05/18/18 [History] Levofloxacin [Levaquin] 750 mg PO DAILY 4 Days tab 05/21/18 [Rx] Docusate [Colace] 100 mg PO BID PRN #30 cap 05/22/18 [Rx] risperiDONE 0.25 mg PO HS PRN #5 tablet 05/22/18 [Rx] Follow up Appointment(s)/Referral(s): Vanessa Oneill MD [Primary Care Provider] - 05/28/18 11:15 am Carolina Fitzpatrick MD [STAFF PHYSICIAN] - 05/30/18 9:45 am Patient Instructions/Handouts: Risperidone (By mouth), Levofloxacin (By mouth) , Urinary Tract Infection in Men (DC), How to Catheterize Yourself (Man) (GEN) Activity/Diet/Wound Care/Special Instructions: limit activity until seen by regular diet Discharge Disposition: HOME SELF-CARE
== END 2018-05-22 18:41 | disposition home or self-care (01) | DRG 698 ==
LOC: EC 20:52 → 5MS5E 23:27 → OBSVTOIN 05-21 10:37
PROVIDERS: ADMIT Internal Medicine; ATTEND Internal Medicine
DX: T83.518A Infection and inflammatory reaction due to other urinary catheter, initial encounter (principal); A41.50 Gram-negative sepsis, unspecified; G93.41 Metabolic encephalopathy; E27.40 Unspecified adrenocortical insufficiency; E87.1 Hypo-osmolality and hyponatremia; N39.0 Urinary tract infection, site not specified; N13.8 Other obstructive and reflux uropathy; Y73.8 Miscellaneous gastroenterology and urology devices associated with adverse incidents, not elsewhere classified; B96.20 Unspecified Escherichia coli [E. coli] as the cause of diseases classified elsewhere; D35.2 Benign neoplasm of pituitary gland; D64.9 Anemia, unspecified; E89.0 Postprocedural hypothyroidism; H35.30 Unspecified macular degeneration; W06.XXXA Fall from bed, initial encounter; Z80.0 Family history of malignant neoplasm of digestive organs; Z82.3 Family history of stroke; Z85.46 Personal history of malignant neoplasm of prostate; Z87.440 Personal history of urinary (tract) infections; Z87.891 Personal history of nicotine dependence; Z79.890 Hormone replacement therapy; Z79.891 Long term (current) use of opiate analgesic; Z79.899 Other long term (current) drug therapy; Z92.3 Personal history of irradiation
CPT/HCPCS: 36415; 51701; 70450; 71046; 80048; 80053; 81001; 83605; 84484; 85025; 85610; 85730; 87040; 87077; 87086; 87186; 93005; 96360; 96361; 96365; 99284; 99285

== ENCOUNTER 2018-09-12 08:38 | Inpatient (IN) | payer MEDICARE, BC ==
[2018-09-12] MEDS ORDERED: IBUPROFEN 600 MG TAB PO STA (09:02)
[2018-09-12] MEDS ORDERED: ACETAMINOPHEN TAB 500 MG TAB PO STA (09:02)
[2018-09-12] MEDS ORDERED: SODIUM CHLORIDE 0.9% 1,000 ML IV STA (09:02)
[2018-09-12] MEDS ORDERED: SODIUM CHLORIDE 0.9% 500 ML 500 ML IV STA (09:02)
--- NOTE | 2018-09-12 09:05 | ED ---
Fever HPI - General Chief Complaint: Fever Stated Complaint: weakness Time Seen by Provider: 09/12/18 08:43 Source: patient, RN notes reviewed, old records reviewed Mode of arrival: ambulatory Limitations: no limitations - History of Present Illness Initial Comments: This is an 82-year-old male to the ER for evaluation. This patient resents today for evaluation regards to fever. Patient is sent in by for fever. Patient denies any specific complaints. Patient does states he has history of urinary tract infection with sepsis. Patient denies any cough congestion no abdominal pain no recent travel history no sick contacts no nausea vomiting or diarrhea currently. No recent hospitalizations per patient. No recent change in medications. Patient states he just feels mildly weak MD Complaint: fever, weakness -: days(s) Temperature Source: oral Associated Symptoms: chills, myalgias Treatments Prior to Arrival: none - Related Data Home Medications Medication Instructions Recorded Confirmed Hydrocortisone [Cortef] 10 mg PO DAILY@1400 07/27/17 09/12/18 Hydrocortisone [Cortef] 20 mg PO QAM 07/27/17 09/12/18 Vit C/E/Zn/Coppr/Lutein/Zeaxan 1 cap PO BID 03/18/18 09/12/18 [Preservision Areds 2 Softgel] L.acidoph,Paracasei, B.lactis 1 cap PO DAILY 04/17/18 09/12/18 [Probiotic] Levothyroxine Sodium [Synthroid] 100 mcg PO DAILY 05/18/18 09/12/18 Cystex Cranberry Liquid 15 ml PO BID 09/12/18 09/12/18 Allergies Allergy/AdvReac Type Severity Reaction Status Date / Time No Known Allergies Allergy Verified 09/12/18 09:07 Review of Systems ROS Statement: Those systems with pertinent positive or pertinent negative responses have been documented in the HPI. ROS Other: All systems not noted in ROS Statement are negative. Past Medical History Past Medical History: Cancer, Eye Disorder, Thyroid Disorder Additional Past Medical History / Comment(s): Prostate CA with radiation/ urinary retention/self caths at 9pm and midnight and voids during daytime hours / occasional incontinence of urine, frequent UTIs and has confusion with UTIs, stable pituitary mass, hyponatremia, chronic anemia, bilateral macular degeneration, hypothyroidism, pt's legs are cold all the time. History of Any Multi-Drug Resistant Organisms: Other MDRO Past Surgical History: Adenoidectomy, Tonsillectomy Additional Past Surgical History / Comment(s): EGD/colonoscopy. Past Anesthesia/Blood Transfusion Reactions: No Reported Reaction Past Psychological History: No Psychological Hx Reported Smoking Status: Former smoker Past Alcohol Use History: None Reported Past Drug Use History: None Reported - Past Family History Father Family Medical History: Cancer Additional Family Medical History / Comment(s): Colon CA, at 74. Mother Family Medical History: No Reported History, CVA/TIA Additional Family Medical History / Comment(s): Mother of a CVA at the age of 83yrs. General Exam Limitations: no limitations General appearance: alert, in no apparent distress Head exam: Present: atraumatic, normocephalic, normal inspection Eye exam: Present: normal appearance, PERRL, EOMI. Absent: scleral icterus, conjunctival injection, periorbital swelling ENT exam: Present: normal exam, mucous membranes moist Neck exam: Present: normal inspection. Absent: tenderness, meningismus, lymphadenopathy Respiratory exam: Present: normal lung sounds bilaterally. Absent: respiratory distress, wheezes, rales, rhonchi, stridor Cardiovascular Exam: Present: regular rate, normal rhythm, normal heart sounds. Absent: systolic murmur, diastolic murmur, rubs, gallop, clicks GI/Abdominal exam: Present: soft, normal bowel sounds. Absent: distended, tenderness, guarding, rebound, rigid Extremities exam: Present: normal inspection, full ROM, normal capillary refill. Absent: tenderness, pedal edema, joint swelling, calf tenderness Back exam: Present: normal inspection Neurological exam: Present: alert, oriented X3, CN II-XII intact Psychiatric exam: Present: normal affect, normal mood Skin exam: Present: warm, dry, intact, normal color. Absent: rash Course Vital Signs 09/12/18 09/12/18 08:42 10:03 Temperature 103.1 F H 99.5 F Pulse Rate 83 Respiratory 20 Rate Blood Pressure 130/65 O2 Sat by Pulse 94 L Oximetry - Reevaluation(s) Reevaluation #1: 09/12/18 11:41 Medical record is reviewed Reevaluation #2: 09/12/18 11:41 Patient does have improvement with fever control and IV hydration Medical Decision Making - Medical Decision Making 82 male the ER for evaluation patient with urinary tract infection, patient be admitted for fever control IV hydration - Lab Data Result diagrams: 09/12/18 08:50 09/12/18 08:50 Lab Results 09/12/18 09/12/18 09/12/18 Range/Units 08:50 08:50 08:50 WBC 9.9 (3.8-10.6) k/uL RBC 3.57 L (4.30-5.90) m/uL Hgb 12.0 L (13.0-17.5) gm/dL Hct 34.9 L (39.0-53.0) % MCV 97.8 (80.0-100.0) fL MCH 33.5 (25.0-35.0) pg MCHC 34.3 (31.0-37.0) g/dL RDW 13.3 (11.5-15.5) % Plt Count 173 (150-450) k/uL Neutrophils % 77 % Lymphocytes % 15 % Monocytes % 6 % Eosinophils % 1 % Basophils % 0 % Neutrophils # 7.6 (1.3-7.7) k/uL Lymphocytes # 1.5 (1.0-4.8) k/uL Monocytes # 0.6 (0-1.0) k/uL Eosinophils # 0.1 (0-0.7) k/uL Basophils # 0.0 (0-0.2) k/uL Sodium 138 (137-145) mmol/L Potassium 4.8 (3.5-5.1) mmol/L Chloride 106 (98-107) mmol/L Carbon Dioxide 23 (22-30) mmol/L Anion Gap 9 mmol/L BUN 17 (9-20) mg/dL Creatinine 1.19 (0.66-1.25) mg/dL Est GFR (CKD-EPI)AfAm 65 (>60 ml/min/1.73 sqM) Est GFR (CKD-EPI)NonAf 56 (>60 ml/min/1.73 sqM) Glucose 98 (74-99) mg/dL Plasma Lactic Acid Garland (0.7-2.0) mmol/L Calcium 8.5 (8.4-10.2) mg/dL Total Bilirubin 0.5 (0.2-1.3) mg/dL AST 25 (17-59) U/L ALT 28 (21-72) U/L Alkaline Phosphatase 57 (38-126) U/L Total Protein 6.5 (6.3-8.2) g/dL Albumin 3.4 L (3.5-5.0) g/dL Urine Color Urine Appearance (Clear) Urine pH (5.0-8.0) Ur Specific Gaines (1.001-1.035) Urine Protein (Negative) Urine Glucose (UA) (Negative) Urine Ketones (Negative) Urine Blood (Negative) Urine Nitrite (Negative) Urine Bilirubin (Negative) Urine Urobilinogen (<2.0) mg/dL Ur Leukocyte Esterase (Negative) Urine RBC (0-5) /hpf Urine WBC (0-5) /hpf Urine WBC Clumps (None) /hpf Urine Bacteria (None) /hpf Urine Mucus (None) /hpf Influenza Type A RNA Not Detected (Not Detectd) Influenza Type B (PCR) Not Detected (Not Detectd) 09/12/18 09/12/18 Range/Units 08:50 10:02 WBC (3.8-10.6) k/uL RBC (4.30-5.90) m/uL Hgb (13.0-17.5) gm/dL Hct (39.0-53.0) % MCV (80.0-100.0) fL MCH (25.0-35.0) pg MCHC (31.0-37.0) g/dL RDW (11.5-15.5) % Plt Count (150-450) k/uL Neutrophils % % Lymphocytes % % Monocytes % % Eosinophils % % Basophils % % Neutrophils # (1.3-7.7) k/uL Lymphocytes # (1.0-4.8) k/uL Monocytes # (0-1.0) k/uL Eosinophils # (0-0.7) k/uL Basophils # (0-0.2) k/uL Sodium (137-145) mmol/L Potassium (3.5-5.1) mmol/L Chloride (98-107) mmol/L Carbon Dioxide (22-30) mmol/L Anion Gap mmol/L BUN (9-20) mg/dL Creatinine (0.66-1.25) mg/dL Est GFR (CKD-EPI)AfAm (>60 ml/min/1.73 sqM) Est GFR (CKD-EPI)NonAf (>60 ml/min/1.73 sqM) Glucose (74-99) mg/dL Plasma Lactic Acid Garland 0.9 (0.7-2.0) mmol/L Calcium (8.4-10.2) mg/dL Total Bilirubin (0.2-1.3) mg/dL AST (17-59) U/L ALT (21-72) U/L Alkaline Phosphatase (38-126) U/L Total Protein (6.3-8.2) g/dL Albumin (3.5-5.0) g/dL Urine Color Yellow Urine Appearance Cloudy (Clear) Urine pH 6.0 (5.0-8.0) Ur Specific Gaines 1.008 (1.001-1.035) Urine Protein Trace H (Negative) Urine Glucose (UA) Negative (Negative) Urine Ketones Negative (Negative) Urine Blood Negative (Negative) Urine Nitrite Positive (Negative) Urine Bilirubin Negative (Negative) Urine Urobilinogen <2.0 (<2.0) mg/dL Ur Leukocyte Esterase Large H (Negative) Urine RBC 5 (0-5) /hpf Urine WBC >182 H (0-5) /hpf Urine WBC Clumps Rare H (None) /hpf Urine Bacteria Many H (None) /hpf Urine Mucus Rare H (None) /hpf Influenza Type A RNA (Not Detectd) Influenza Type B (PCR) (Not Detectd) - EKG Data -: EKG Interpreted by Me (EKG shows normal sinus rhythm rate of 70, KS 174, QRS 1:30, QTc 453) - Radiology Data Radiology results: report reviewed (Chest x-rays negative for acute disease), image reviewed Disposition Clinical Impression: UTI (urinary tract infection), Fever Disposition: ADMITTED IP TO THIS HOSP Condition: Fair Is patient prescribed a controlled substance at d/c from ED?: No
[2018-09-12 09:28] LABS: Basophils % (A) 0 %; Eosinophils # (A) 0.1 k/uL (0-0.7); Eosinophils % (A) 1 %; HCT 34.9 % (39.0-53.0); Lymphocytes # (A) 1.5 k/uL (1.0-4.8); Lymphocytes % (A) 15 %; MCH 33.5 pg (25.0-35.0); MCHC 34.3 g/dL (31.0-37.0); MCV 97.8 fL (80.0-100.0); Mean Platelet Volume 6.3; Monocytes # (A) 0.6 k/uL (0-1.0); Monocytes % (A) 6 %; Neutrophils # (A) 7.6 k/uL (1.3-7.7); Neutrophils % (A) 77 %; Platelet Count 173 k/uL (150-450); RBC 3.57 m/uL (4.30-5.90); RDW 13.3 % (11.5-15.5); WBC 9.9 k/uL (3.8-10.6)
[2018-09-12 09:41] LABS: Albumin 3.4 g/dL (3.5-5.0); Calcium 8.5 mg/dL (8.4-10.2); Potassium 4.8 mmol/L (3.5-5.1); Total Bilirubin 0.5 mg/dL (0.2-1.3); Total Protein 6.5 g/dL (6.3-8.2)
--- NOTE | 2018-09-12 10:17 | XR ---
EXAMINATION TYPE: XR chest 2V DATE OF EXAM: 09/12/2018 COMPARISON: 05/18/2020 HISTORY: 82 year-old male shortness of breath, recurring fevers TECHNIQUE: AP and lateral views FINDINGS: Heart normal size. Aorta and pulmonary vasculature within normal limits. Some strandy atelectasis in the mid and lower lungs. No skinny consolidation or pleural effusion seen. Some similar density at the cardiac apex suggesting epicardial fat pad. IMPRESSION: Stable exam. Some strandy areas of lower lung atelectasis. No acute cardiopulmonary process.
[2018-09-12 10:24] LABS: Appearance,Urine Cloudy (Clear); Bacteria,Urine Many /hpf; Bilirubin,Urine Negative (Negative); Blood,Urine Negative (Negative); Color,Urine Yellow; Glucose,Urine (UA) Negative (Negative); Ketones,Urine Negative (Negative); Leukocyte Esterase,Urine Large (Negative); Mucus,Urine Rare /hpf; Nitrite,Urine Positive (Negative); Protein,Urine Trace (Negative); RBC,Urine 5 /hpf (0-5); Specific Gravity,Urine 1.008 (1.001-1.035); Urobilinogen,Urine <2.0 mg/dL (<2.0); WBC,Urine >182 /hpf (0-5)
[2018-09-12] MEDS ORDERED: SODIUM CHLORIDE 0.9% 1,000 ML IV ONE (10:58)
[2018-09-12] MEDS ORDERED: cefTRIAXone 2,000 MG in SODIUM CHLORIDE 0.9% 100 ML IVPB STA (10:58)
--- NOTE | 2018-09-12 13:45 | P.HPIM ---
History of Present Illness 82-year-old gentleman with known history of multiple UTIs in the past does straight cath himself came in with compensative fever and generalized body aches denied any abdominal pain. Patient urine is significantly abnormal. Patient the past has E. coli Klebsiella pneumoniae, Enterobacter VAC including Citrobacter in the past all of them were pansensitive and sister to ceftriaxone patient was started on Zyprexa dose of which will be increased patient will be evaluated by infectious disease will obtain urine culture and blood cultures. Patient denied any cough runny nose chest x-ray did not show any pneumonic process denied any diarrhea. Patient denied any increased urinary frequency burning sensation Review of Systems REVIEW OF SYSTEMS: CONSTITUTIONAL: No fever, no malaise, no fatigue. HEENT: No recent visual problems or hearing problems. Denied any sore throat. CARDIOVASCULAR: No chest pain, orthopnea, PND, no palpitations, no syncope. PULMONARY: No shortness of breath, no cough, no hemoptysis. GASTROINTESTINAL: No diarrhea, no nausea, no vomiting, no abdominal pain. NEUROLOGICAL: No headaches, no weakness, no numbness. HEMATOLOGICAL: Denies any bleeding or petechiae. GENITOURINARY: Denies any burning micturition, frequency, or urgency. MUSCULOSKELETAL/RHEUMATOLOGICAL: Denies any joint pain, swelling, or any muscle pain. ENDOCRINE: Denies any polyuria or polydipsia. The rest of the 14-point review of systems is negative. Past Medical History Past Medical History: Cancer, Eye Disorder, Thyroid Disorder Additional Past Medical History / Comment(s): Prostate CA with radiation/ urinary retention/self caths at 9pm and midnight and voids during daytime hours / occasional incontinence of urine, frequent UTIs and has confusion with UTIs, stable pituitary mass, hyponatremia, chronic anemia, bilateral macular degeneration, hypothyroidism, pt's legs are cold all the time. History of Any Multi-Drug Resistant Organisms: Other MDRO Past Surgical History: Adenoidectomy, Tonsillectomy Additional Past Surgical History / Comment(s): EGD/colonoscopy. Past Anesthesia/Blood Transfusion Reactions: No Reported Reaction Past Psychological History: No Psychological Hx Reported Smoking Status: Former smoker Past Alcohol Use History: None Reported Past Drug Use History: None Reported - Past Family History Father Family Medical History: Cancer Additional Family Medical History / Comment(s): Colon CA, at 74. Mother Family Medical History: No Reported History, CVA/TIA Additional Family Medical History / Comment(s): Mother of a CVA at the age of 83yrs. Medications and Allergies Home Medications Medication Instructions Recorded Confirmed Type Hydrocortisone [Cortef] 10 mg PO DAILY@1400 07/27/17 09/12/18 History Hydrocortisone [Cortef] 20 mg PO QAM 07/27/17 09/12/18 History Vit C/E/Zn/Coppr/Lutein/Zeaxan 1 cap PO BID 03/18/18 09/12/18 History [Preservision Areds 2 Softgel] L.acidoph,Paracasei, B.lactis 1 cap PO DAILY 04/17/18 09/12/18 History [Probiotic] Levothyroxine Sodium [Synthroid] 100 mcg PO DAILY 05/18/18 09/12/18 History Cystex Cranberry Liquid 15 ml PO BID 09/12/18 09/12/18 History Allergies Allergy/AdvReac Type Severity Reaction Status Date / Time No Known Allergies Allergy Verified 09/12/18 09:07 Physical Exam Vitals: Vital Signs Temp Pulse Resp BP Pulse Ox 09/12/18 13:39 63 18 95/57 98 09/12/18 12:03 98.3 F 62 18 90/56 95 09/12/18 10:03 99.5 F 09/12/18 08:42 103.1 F H 83 20 130/65 94 L Intake and Output 09/11/18 09/12/18 09/12/18 22:59 06:59 14:59 Other: Weight 90.718 kg PHYSICAL EXAMINATION: GENERAL: The patient is alert and oriented x3, not in any acute distress. Well developed, well nourished. HEENT: Pupils are round and equally reacting to light. EOMI. No scleral icterus. No conjunctival pallor. Normocephalic, atraumatic. No pharyngeal erythema. No thyromegaly. CARDIOVASCULAR: S1 and S2 present. No murmurs, rubs, or gallops. PULMONARY: Chest is clear to auscultation, no wheezing or crackles. ABDOMEN: Soft, nontender, nondistended, normoactive bowel sounds. No palpable organomegaly. MUSCULOSKELETAL: No joint swelling or deformity. EXTREMITIES: No cyanosis, clubbing, or pedal edema. NEUROLOGICAL: Gross neurological examination did not reveal any focal deficits. SKIN: No rashes. Results CBC & Chem 7: 09/12/18 08:50 09/12/18 08:50 Labs: Abnormal Lab Results - Last 24 Hours (Table) 09/12/18 09/12/18 09/12/18 Range/Units 08:50 08:50 10:02 RBC 3.57 L (4.30-5.90) m/uL Hgb 12.0 L (13.0-17.5) gm/dL Hct 34.9 L (39.0-53.0) % Albumin 3.4 L (3.5-5.0) g/dL Urine Protein Trace H (Negative) Ur Leukocyte Esterase Large H (Negative) Urine WBC >182 H (0-5) /hpf Urine WBC Clumps Rare H (None) /hpf Urine Bacteria Many H (None) /hpf Urine Mucus Rare H (None) /hpf Assessment and Plan Plan: Urinary tract infection: Patient has multiple UTIs in the past patient does do straight catheterization at home. Patient will be started on Rocephin as mentioned above. -hypoadrenalism for which patient uses hydrocortisone she'll be continued -hypothyroidism continue with levothyroxine -History of prostate cancer with radiation therapy leading to chronic urinary retention Patient will need pharmacologic GI and DVT prophylaxis
--- NOTE | 2018-09-12 13:53 | P.CONS ---
History of Present Illness - Reason for Consult Consult date: 09/12/18 Urinary tract infection - History of Present Illness This is an 82-year-old male well-known to the infectious disease service for his multiple hospitalizations for catheter associated urinary tract infections. Patient has past medical history significant for prostate cancer status post surgical intervention and radiation therapy. He has chronic urinary obstruction and utilizes straight cath 3-4 times per day. His must assist. The patient developed fevers yesterday. He denies any change in his urinary symptoms. No pain or burning. His urine has been light yellow in color. He denies any decreased appetite. No muscle aches or joint aches. He denies any falls. His last bowel movement was yesterday and he does take a stool softener daily. His called EMS and patient was brought into [facility] emergency center for evaluation was found to have a temperature of 103.1, white count 9.9, lactic acid 0.9. Urinalysis was cloudy, nitrate positive, leukoesterase large, WBC greater than 182, bacteria many. Blood and urine cultures are status received. Patient was started on Rocephin and admitted to the [facility] floor. He has been partially waiting for bed to open for him. Previous urine cultures have been positive for E. coli, and Klebsiella pneumoniae that are pansensitive. He does have a previous Pseudomonas in February 2018. Enterobacter and Citrobacter are susceptible to Rocephin. Review of Systems Constitutional: Reports chills, Reports fatigue, Reports fever, Reports lethargy , Reports malaise, Reports weakness, Denies poor appetite Ears, nose, mouth and throat: Denies dysphagia, Denies hoarseness, Denies mouth pain, Denies sore throat, Denies vertigo Cardiovascular: Denies chest pain, Denies dyspnea on exertion, Denies edema, Denies leg edema, Denies shortness of breath, Denies syncope Respiratory: Denies congestion, Denies cough, Denies cough with sputum, Denies dyspnea, Denies excessive sputum, Denies hemoptysis, Denies home oxygen, Denies wheezing Gastrointestinal: Denies as per HPI, Denies constipation, Denies diarrhea, Denies loss of appetite, Denies melena, Denies nausea, Denies vomiting Genitourinary: Reports urinary retention, Denies dysuria Musculoskeletal: Reports muscle weakness, Denies frequent falls, Denies gait dysfunction Integumentary: Denies wounds Neurological: Reports change in mentation, Reports confusion, Reports weakness, Denies aphasia, Denies convulsions, Denies head injury, Denies headaches, Denies seizures Past Medical History Past Medical History: Cancer, Eye Disorder, Thyroid Disorder Additional Past Medical History / Comment(s): Prostate CA with radiation/ urinary retention/self caths at 9pm and midnight and voids during daytime hours / occasional incontinence of urine, frequent UTIs and has confusion with UTIs, stable pituitary mass, hyponatremia, chronic anemia, bilateral macular degeneration, hypothyroidism, pt's legs are cold all the time. History of Any Multi-Drug Resistant Organisms: Other MDRO Past Surgical History: Adenoidectomy, Tonsillectomy Additional Past Surgical History / Comment(s): EGD/colonoscopy. Past Anesthesia/Blood Transfusion Reactions: No Reported Reaction Past Psychological History: No Psychological Hx Reported Smoking Status: Former smoker Past Alcohol Use History: None Reported Additional Past Alcohol Use History / Comment(s): Patient was a smoker 3 packs per day and smoked for less than 15 years quitting 15 years ago. He lives at home with his . No illicit drug use or alcohol use. There are 3 adult children that are nearby that help at home. 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 No international travel. No current animal exposures. Past Drug Use History: None Reported - Past Family History Father Family Medical History: Cancer Additional Family Medical History / Comment(s): Colon CA, at 74. Mother Family Medical History: No Reported History, CVA/TIA Additional Family Medical History / Comment(s): Mother of a CVA at the age of 83yrs. Medications and Allergies Home Medications Medication Instructions Recorded Confirmed Type Hydrocortisone [Cortef] 10 mg PO DAILY@1400 07/27/17 09/12/18 History Hydrocortisone [Cortef] 20 mg PO QAM 07/27/17 09/12/18 History Vit C/E/Zn/Coppr/Lutein/Zeaxan 1 cap PO BID 03/18/18 09/12/18 History [Preservision Areds 2 Softgel] L.acidoph,Paracasei, B.lactis 1 cap PO DAILY 04/17/18 09/12/18 History [Probiotic] Levothyroxine Sodium [Synthroid] 100 mcg PO DAILY 05/18/18 09/12/18 History Cystex Cranberry Liquid 15 ml PO BID 09/12/18 09/12/18 History Allergies Allergy/AdvReac Type Severity Reaction Status Date / Time No Known Allergies Allergy Verified 09/12/18 09:07 Physical Exam Vitals: Vital Signs Temp Pulse Resp BP Pulse Ox 09/12/18 12:03 98.3 F 62 18 90/56 95 09/12/18 10:03 99.5 F 09/12/18 08:42 103.1 F H 83 20 130/65 94 L Intake and Output 09/11/18 09/12/18 09/12/18 22:59 06:59 14:59 Other: Weight 90.718 kg Pleasant 82-year-old male who is comfortable at this point in time on the ER stretcher. HEENT: Anicteric conjunctiva are pink and moist nasal mucosa grossly intact without significant lesions, there is no thrush. Neck: The neck is supple without significant lymphadenopathy or thyromegaly. Lungs: Good bilateral air entry without significant crackles or wheezing. There is no significant bronchial sounds. Heart: Regular rate and rhythm with an audible S1-S2, no S3 no S4. There is no significant murmur click or rub, PMI was nondisplaced. Abdomen: Positive bowel sounds soft and nontender without palpable masses or organomegaly. There was no guarding or rebound. Extremities: The upper extremities have excellent pulses they are symmetric, no significant petechiae or telangiectasia. No splinter hemorrhages were noted. Lower extremities without edema, ulcerations. Dorsalis pedis is weak bilaterally. Neuro: Awake alert oriented to person, he knows he is in the hospital but cannot recall the name. He does not know the year. Results Results: Laboratory Results WBC 9.9 k/uL (3.8-10.6) 09/12/18 08:50 RBC 3.57 m/uL (4.30-5.90) L 09/12/18 08:50 Hgb 12.0 gm/dL (13.0-17.5) L 09/12/18 08:50 Hct 34.9 % (39.0-53.0) L 09/12/18 08:50 MCV 97.8 fL (80.0-100.0) 09/12/18 08:50 MCH 33.5 pg (25.0-35.0) 09/12/18 08:50 MCHC 34.3 g/dL (31.0-37.0) 09/12/18 08:50 RDW 13.3 % (11.5-15.5) 09/12/18 08:50 Plt Count 173 k/uL (150-450) 09/12/18 08:50 Neutrophils % 77 % 09/12/18 08:50 Lymphocytes % 15 % 09/12/18 08:50 Monocytes % 6 % 09/12/18 08:50 Eosinophils % 1 % 09/12/18 08:50 Basophils % 0 % 09/12/18 08:50 Neutrophils # 7.6 k/uL (1.3-7.7) 09/12/18 08:50 Lymphocytes # 1.5 k/uL (1.0-4.8) 09/12/18 08:50 Monocytes # 0.6 k/uL (0-1.0) 09/12/18 08:50 Eosinophils # 0.1 k/uL (0-0.7) 09/12/18 08:50 Basophils # 0.0 k/uL (0-0.2) 09/12/18 08:50 Sodium 138 mmol/L (137-145) 09/12/18 08:50 Potassium 4.8 mmol/L (3.5-5.1) 09/12/18 08:50 Chloride 106 mmol/L (98-107) 09/12/18 08:50 Carbon Dioxide 23 mmol/L (22-30) 09/12/18 08:50 Anion Gap 9 mmol/L 09/12/18 08:50 BUN 17 mg/dL (9-20) 09/12/18 08:50 Creatinine 1.19 mg/dL (0.66-1.25) 09/12/18 08:50 Est GFR (CKD-EPI)AfAm 65 (>60 ml/min/1.73 sqM) 09/12/18 08:50 Est GFR (CKD-EPI)NonAf 56 (>60 ml/min/1.73 sqM) 09/12/18 08:50 Glucose 98 mg/dL (74-99) 09/12/18 08:50 Plasma Lactic Acid [place] 0.9 mmol/L (0.7-2.0) 09/12/18 08:50 Calcium 8.5 mg/dL (8.4-10.2) 09/12/18 08:50 Total Bilirubin 0.5 mg/dL (0.2-1.3) 09/12/18 08:50 AST 25 U/L (17-59) 09/12/18 08:50 ALT 28 U/L (21-72) 09/12/18 08:50 Alkaline Phosphatase 57 U/L (38-126) 09/12/18 08:50 Total Protein 6.5 g/dL (6.3-8.2) 09/12/18 08:50 Albumin 3.4 g/dL (3.5-5.0) L 09/12/18 08:50 Urine Color Yellow 09/12/18 10:02 Urine Appearance Cloudy (Clear) 09/12/18 10:02 Urine pH 6.0 (5.0-8.0) 09/12/18 10:02 Ur Specific [place] 1.008 (1.001-1.035) 09/12/18 10:02 Urine Protein Trace (Negative) H 09/12/18 10:02 Urine Glucose (UA) Negative (Negative) 09/12/18 10:02 Urine Ketones Negative (Negative) 09/12/18 10:02 Urine Blood Negative (Negative) 09/12/18 10:02 Urine Nitrite Positive (Negative) 09/12/18 10:02 Urine Bilirubin Negative (Negative) 09/12/18 10:02 Urine Urobilinogen <2.0 mg/dL (<2.0) 09/12/18 10:02 Ur Leukocyte Esterase Large (Negative) H 09/12/18 10:02 Urine RBC 5 /hpf (0-5) 09/12/18 10:02 Urine WBC >182 /hpf (0-5) H 09/12/18 10:02 Urine WBC Clumps Rare /hpf (None) H 09/12/18 10:02 Urine Bacteria Many /hpf (None) H 09/12/18 10:02 Urine Mucus Rare /hpf (None) H 09/12/18 10:02 Influenza Type A RNA Not Detected (Not Detectd) 09/12/18 08:50 Influenza Type B (PCR) Not Detected (Not Detectd) 09/12/18 08:50 CBC & Chem 7: 09/13/18 08:09 09/13/18 08:09 Labs: Abnormal Lab Results - Last 24 Hours (Table) 09/12/18 09/12/18 09/12/18 Range/Units 08:50 08:50 10:02 RBC 3.57 L (4.30-5.90) m/uL Hgb 12.0 L (13.0-17.5) gm/dL Hct 34.9 L (39.0-53.0) % Albumin 3.4 L (3.5-5.0) g/dL Urine Protein Trace H (Negative) Ur Leukocyte Esterase Large H (Negative) Urine WBC >182 H (0-5) /hpf Urine WBC Clumps Rare H (None) /hpf Urine Bacteria Many H (None) /hpf Urine Mucus Rare H (None) /hpf Assessment and Plan Plan: This is an 82-year-old male patient who presents to the hospital with a significant fever and weakness with metabolic encephalopathy, sepsis secondary to self-catheterization UTI. Urine culture and blood culture are progress. He has received 1500 ML's of IV fluid and one dose of Rocephin and Motrin. He is awaiting a [facility] bed availability. Previous urine cultures have been positive for E. coli, and Klebsiella pneumoniae that are pansensitive. He does have a previous Pseudomonas in February 2018. Continue supportive care. Further recommendations as patient progresses. The above dictated assessment and findings were discussed with Dr. Akins. The impression and plan of care have been directed as dictated. Danyelle Brooks nurse practitioner acting as scribe for Dr. Akins.
[2018-09-12] MEDS: HYDROCORTISONE 10 MG TAB PO SCH (15:54)
[2018-09-12] MEDS: VIT A,C & E-LUTEIN-MINERALS 1 EACH TAB PO SCH (15:54)
[2018-09-12] MEDS: FAMOTIDINE 20 MG TAB PO SCH (20:38)
[2018-09-12] MEDS: HEPARIN SODIUM,PORCINE 5,000 UNIT/ML 1 ML VIAL SQ SCH (20:38)
[2018-09-12] MEDS ORDERED: [UNRECOGNIZED DRUG - OTHER] PO SCH (21:00)
--- NOTE | 2018-09-12 22:16 | P.CON ---
Consult Note - . Consult date: 09/12/18 Assessment/Plan:: This is an 82-year-old male well-known to the infectious disease service for his multiple hospitalizations for catheter associated urinary tract infections. Patient has past medical history significant for prostate cancer status post surgical intervention and radiation therapy. He has chronic urinary obstruction and utilizes straight cath 3-4 times per day. His must assist. The patient developed fevers yesterday. He denies any change in his urinary symptoms. No pain or burning. His urine has been light yellow in color. He denies any decreased appetite. No muscle aches or joint aches. He denies any falls. His last bowel movement was yesterday and he does take a stool softener daily. His called EMS and patient was brought into [facility] emergency center for evaluation was found to have a temperature of 103.1, white count 9.9, lactic acid 0.9. Urinalysis was cloudy, nitrate positive, leukoesterase large, WBC greater than 182, bacteria many. Blood and urine cultures are status received. Patient was started on Rocephin and [facility]. He has been partially waiting for bed to open for him. Previous urine cultures have been positive for E. coli, and Klebsiella pneumoniae that are pansensitive. He does have a previous Pseudomonas in February 2018. Enterobacter and Citrobacter are susceptible to Rocephin. Please see the consult note dictated by nurse practitioner Mr. Danyelle Brooks. Patient relates he suddenly started to feel poorly with increasing weakness developed fever and decreased appetite generalized malaise. As a presents to the emergency center where he is a fever 103.1. As noted is well-known to the service for his hospitalizations regarding sepsis from urinary system. Most recently he has had E. coli and Klebsiella that are not highly resistant. He's had more resistant pathogens in the past but not as of late. For now we'll utilize ceftriaxone and fluids that every allowed him to have some improvement. Continue to straight cath per his protocol of 4 times a day. Bladder scan during the day to ensure that he is actively emptying his bladder adequately so he is not having too much retention resulting in further urinary infections. Cultures will determine the course of antibiotic therapy at the time of discharge. I agree with evaluation, assessment and plan is dictated by nurse practitioner Mrs. Danyelle Brooks.
[2018-09-13] MEDS ORDERED: IBUPROFEN 600 MG TAB PO PRN (00:40)
[2018-09-13] MEDS ORDERED: ACETAMINOPHEN TAB 325 MG TAB PO PRN (00:42)
[2018-09-13] MEDS: LEVOTHYROXINE 100 MCG TAB PO SCH (06:02)
[2018-09-13] MEDS: FAMOTIDINE 20 MG TAB PO SCH (08:29)
[2018-09-13] MEDS: HEPARIN SODIUM,PORCINE 5,000 UNIT/ML 1 ML VIAL SQ SCH ×2 (08:29→21:14)
[2018-09-13] MEDS: LACTOBACILLUS ACIDOPH & BULGAR 1 EACH PACKET PO SCH (08:29)
[2018-09-13] MEDS: HYDROCORTISONE 10 MG TAB PO SCH ×2 (08:30→13:34)
[2018-09-13] MEDS: VIT A,C & E-LUTEIN-MINERALS 1 EACH TAB PO SCH ×2 (08:30→17:27)
[2018-09-13 08:35] LABS: HCT 31.7 % (39.0-53.0); HGB 10.2 gm/dL (13.0-17.5); MCH 32.4 pg (25.0-35.0); MCHC 32.3 g/dL (31.0-37.0); MCV 100.5 fL (80.0-100.0); Mean Platelet Volume 6.1; Platelet Count 169 k/uL (150-450); RBC 3.15 m/uL (4.30-5.90); RDW 13.5 % (11.5-15.5); WBC 7.7 k/uL (3.8-10.6)
[2018-09-13] MEDS ORDERED: ENOXAPARIN 40 MG/0.4 ML SYRINGE SQ SCH (09:00)
[2018-09-13 09:02] LABS: Calcium 7.8 mg/dL (8.4-10.2); Potassium 4.1 mmol/L (3.5-5.1)
--- NOTE | 2018-09-13 21:58 | P.PN ---
Subjective Progress Note Date: 09/13/18 Progress note being dictated for Dr. Cortez Interval history: This is a 82-year-old gentleman with known history of multiple UTIs in the past does straight cath himself came in with compensative fever and generalized body aches denied any abdominal pain. Patient urine is significantly abnormal. Patient the past has E. coli Klebsiella pneumoniae, Enterobacter VAC including Citrobacter in the past all of them were pansensitive and sister to ceftriaxone patient was started on Zyprexa dose of which will be increased patient will be evaluated by infectious disease will obtain urine culture and blood cultures. Patient denied any cough runny nose chest x-ray did not show any pneumonic process denied any diarrhea. Patient denied any increased urinary frequency burning sensation 09/13/2018 maintained on IV Rocephin .sitting up at side of bed, feels better today. Afebrile, T-max 10 2.6. Urine culture currently growing gram-negative bacilli, preliminary blood culture negative.Good diet intake. Denies chest pain , palpitations or shortness of breath. Creatinine 1.18. Objective - Vital Signs Vital signs: Vital Signs Temp 97.4 F L 09/13/18 14:10 Pulse 66 09/13/18 14:10 Resp 18 09/13/18 14:10 BP 111/68 09/13/18 14:10 Pulse Ox 97 09/13/18 14:10 Intake & Output 09/13/18 09/13/18 09/14/18 06:59 18:59 06:59 Intake Total 1200 Output Total 2125 0 180 Balance -2125 1200 -180 Intake: Oral 1200 Output: Urine 2125 Straight 1275 Post Void Residual 0 180 Other: Voiding Method Self-Catheterization Self-Catheterization Incontinent # Voids 1 1 # Bowel Movements 0 1 # Emeses 1 - Exam GENERAL: The patient is sitting up at side of bed, alert and oriented x3, no acute distress. Well developed, well nourished. HEENT: Pupils are round and equally reacting to light. EOMI. No scleral icterus. No conjunctival pallor. Normocephalic, atraumatic. Oral mucosa moist CARDIOVASCULAR: S1 and S2 present. No murmurs, rubs, or gallops. PULMONARY: Chest is clear to auscultation, no wheezing or crackles. ABDOMEN: Soft, nontender, nondistended, normoactive bowel sounds. No palpable organomegaly. EXTREMITIES: No cyanosis, clubbing, or pedal edema. NEUROLOGICAL: Gross neurological examination did not reveal any focal deficits. SKIN: No rashes. Microbiology 09/12/18 10:02 Urine,Catheterized Urine Culture - Preliminary Gram Neg Bacilli 09/12/18 08:50 Blood Blood Culture - Preliminary No Growth after 24 hours - Labs CBC & Chem 7: 09/13/18 08:09 09/13/18 08:09 Labs: Abnormal Lab Results - Last 24 Hours (Table) 09/13/18 09/13/18 Range/Units 08:09 08:09 RBC 3.15 L (4.30-5.90) m/uL Hgb 10.2 L (13.0-17.5) gm/dL Hct 31.7 L (39.0-53.0) % MCV 100.5 H (80.0-100.0) fL Chloride 109 H (98-107) mmol/L Calcium 7.8 L (8.4-10.2) mg/dL Microbiology - Last 24 Hours (Table) 09/12/18 10:02 Urine Culture - Preliminary Urine,Catheterized Gram Neg Bacilli 09/12/18 08:50 Blood Culture - Preliminary Blood No Growth after 24 hours Assessment and Plan Assessment: Urinary tract infection with gram-negative bacilli: History of multiple UTIs in the past, in a patient who does straight catheterization at home. -hypoadrenalism -hypothyroidism -History of prostate cancer with radiation therapy leading to chronic urinary retention Plan: Continue on current medication regime ,monitoring and symptomatic treatment. IV antibiotics as per infectious disease. Follow cultures closely. Increase ambulation as tolerated. Close monitoring of renal function, WBC, hemoglobin with repeat labs ordered for a.m. The impression and plan of care has been dictated as directed. : I performed a history and examination of this patient, discussed the same with the dictator. I agree with the dictator's note ,documented as a scribe. Any additional findings or plans will be noted.
--- NOTE | 2018-09-13 23:37 | P.PN ---
Subjective Progress Note Date: 09/13/18 This is an 82-year-old male well-known to the infectious disease service for his multiple hospitalizations for catheter associated urinary tract infections. Patient has past medical history significant for prostate cancer status post surgical intervention and radiation therapy. He has chronic urinary obstruction and utilizes straight cath 3-4 times per day. His must assist. The patient developed fevers yesterday. He denies any change in his urinary symptoms. No pain or burning. His urine has been light yellow in color. He denies any decreased appetite. No muscle aches or joint aches. He denies any falls. His last bowel movement was yesterday and he does take a stool softener daily. His called EMS and patient was brought into [facility] emergency center for evaluation was found to have a temperature of 103.1, white count 9.9, lactic acid 0.9. Urinalysis was cloudy, nitrate positive, leukoesterase large, WBC greater than 182, bacteria many. Blood and urine cultures are status received. Patient was started on Rocephin [facility] He has been partially waiting for bed to open for him. Previous urine cultures have been positive for E. coli, and Klebsiella pneumoniae that are pansensitive. He does have a previous Pseudomonas in February 2018. Enterobacter and Citrobacter are susceptible to Rocephin. 09/13/2018 patient started to feel somewhat better. Less he would like to go home but had a fever overnight and culture process. 102.6 fever seems to be improved at this time. Objective - Vital Signs Vital signs: Vital Signs Temp 97.7 F 09/13/18 23:00 Pulse 60 09/13/18 23:00 Resp 20 09/13/18 23:00 BP 135/69 09/13/18 23:00 Pulse Ox 99 09/13/18 23:00 T-max of 102.6 overnight Intake & Output 09/13/18 09/13/18 09/14/18 06:59 18:59 06:59 Intake Total 1200 Output Total 2125 0 180 Balance -2125 1200 -180 Intake: Oral 1200 Output: Urine 2125 Straight 1275 Post Void Residual 0 180 Other: Voiding Method Self-Catheterization Self-Catheterization Incontinent # Voids 1 1 # Bowel Movements 0 1 # [place] 1 - Exam Pleasant 82-year-old male who is comfortable at this point in time on the ER stretcher. HEENT: Anicteric conjunctiva are pink and moist nasal mucosa grossly intact without significant lesions, there is no thrush. Neck: The neck is supple without significant lymphadenopathy or thyromegaly. Lungs: Good bilateral air entry without significant crackles or wheezing. There is no significant bronchial sounds. Heart: Regular rate and rhythm with an audible S1-S2, no S3 no S4. There is no significant murmur click or rub, PMI was nondisplaced. Abdomen: Positive bowel sounds soft and nontender without palpable masses or organomegaly. There was no guarding or rebound. Extremities: The upper extremities have excellent pulses they are symmetric, no significant petechiae or telangiectasia. No splinter hemorrhages were noted. Lower extremities without edema, ulcerations. Dorsalis pedis is weak bilaterally. Neuro: Awake alert oriented to person, he knows he is in the hospital but cannot recall the name. He does not know the year. - Labs CBC & Chem 7: 09/13/18 08:09 09/13/18 08:09 Labs: Abnormal Lab Results - Last 24 Hours (Table) 09/13/18 09/13/18 Range/Units 08: 08:09 RBC 3.15 L (4.30-5.90) m/uL Hgb 10.2 L (13.0-17.5) gm/dL Hct 31.7 L (39.0-53.0) % MCV 100.5 H (80.0-100.0) fL Chloride 109 H (98-107) mmol/L Calcium 7.8 L (8.4-10.2) mg/dL Microbiology - Last 24 Hours (Table) 09/12/18 10:02 Urine Culture - Preliminary Urine,Catheterized Gram Neg Bacilli 09/12/18 08:50 Blood Culture - Preliminary Blood No Growth after 24 hours Laboratory Results WBC 7.7 k/uL (3.8-10.6) 09/13/18 08:09 RBC 3.15 m/uL (4.30-5.90) L 09/13/18 08:09 Hgb 10.2 gm/dL (13.0-17.5) L 09/13/18 08:09 Hct 31.7 % (39.0-53.0) L 09/13/18 08:09 MCV 100.5 fL (80.0-100.0) H 09/13/18 08:09 MCH 32.4 pg (25.0-35.0) 09/13/18 08:09 MCHC 32.3 g/dL (31.0-37.0) 09/13/18 08:09 RDW 13.5 % (11.5-15.5) 09/13/18 08:09 Plt Count 169 k/uL (150-450) 09/13/18 08:09 Neutrophils % 77 % 09/12/18 08:50 Lymphocytes % 15 % 09/12/18 08:50 Monocytes % 6 % 09/12/18 08:50 Eosinophils % 1 % 09/12/18 08:50 Basophils % 0 % 09/12/18 08:50 Neutrophils # 7.6 k/uL (1.3-7.7) 09/12/18 08:50 Lymphocytes # 1.5 k/uL (1.0-4.8) 09/12/18 08:50 Monocytes # 0.6 k/uL (0-1.0) 09/12/18 08:50 Eosinophils # 0.1 k/uL (0-0.7) 09/12/18 08:50 Basophils # 0.0 k/uL (0-0.2) 09/12/18 08:50 Sodium 140 mmol/L (137-145) 09/13/18 08:09 Potassium 4.1 mmol/L (3.5-5.1) 09/13/18 08:09 Chloride 109 mmol/L (98-107) H 09/13/18 08:09 Carbon Dioxide 23 mmol/L (22-30) 09/13/18 08:09 Anion Gap 8 mmol/L 09/13/18 08:09 BUN 16 mg/dL (9-20) 09/13/18 08:09 Creatinine 1.18 mg/dL (0.66-1.25) 09/13/18 08:09 Est GFR (CKD-EPI)AfAm 65 (>60 ml/min/1.73 sqM) 09/13/18 08:09 Est GFR (CKD-EPI)NonAf 56 (>60 ml/min/1.73 sqM) 09/13/18 08:09 Glucose 90 mg/dL (74-99) 09/13/18 08:09 Plasma Lactic Acid [place] 0.9 mmol/L (0.7-2.0) 09/12/18 08:50 Calcium 7.8 mg/dL (8.4-10.2) L 09/13/18 08:09 Total Bilirubin 0.5 mg/dL (0.2-1.3) 09/12/18 08:50 AST 25 U/L (17-59) 09/12/18 08:50 ALT 28 U/L (21-72) 09/12/18 08:50 Alkaline Phosphatase 57 U/L (38-126) 09/12/18 08:50 Total Protein 6.5 g/dL (6.3-8.2) 09/12/18 08:50 Albumin 3.4 g/dL (3.5-5.0) L 09/12/18 08:50 Urine Color Yellow 09/12/18 10:02 Urine Appearance Cloudy (Clear) 09/12/18 10:02 Urine pH 6.0 (5.0-8.0) 09/12/18 10:02 Ur Specific [place] 1.008 (1.001-1.035) 09/12/18 10:02 Urine Protein Trace (Negative) H 09/12/18 10:02 Urine Glucose (UA) Negative (Negative) 09/12/18 10:02 Urine Ketones Negative (Negative) 09/12/18 10:02 Urine Blood Negative (Negative) 09/12/18 10:02 Urine Nitrite Positive (Negative) 09/12/18 10:02 Urine Bilirubin Negative (Negative) 09/12/18 10:02 Urine Urobilinogen <2.0 mg/dL (<2.0) 09/12/18 10:02 Ur Leukocyte Esterase Large (Negative) H 09/12/18 10:02 Urine RBC 5 /hpf (0-5) 09/12/18 10:02 Urine WBC >182 /hpf (0-5) H 09/12/18 10:02 Urine WBC Clumps Rare /hpf (None) H 09/12/18 10:02 Urine Bacteria Many /hpf (None) H 09/12/18 10:02 Urine Mucus Rare /hpf (None) H 09/12/18 10:02 Influenza Type A RNA Not Detected (Not Detectd) 09/12/18 08:50 Influenza Type B (PCR) Not Detected (Not Detectd) 09/12/18 08:50 Microbiology 09/12/18 10:02 Urine,Catheterized Urine Culture - Preliminary Gram Neg Bacilli 09/12/18 08:50 Blood Blood Culture - Preliminary No Growth after 24 hours Assessment and Plan (1) Urinary tract infection Current Visit: Yes Status: Acute Code(s): N39.0 - URINARY TRACT INFECTION, SITE NOT SPECIFIED SNOMED Code(s): 16062827 (2) Gram negative sepsis Narrative/Plan: Patient relates he suddenly started to feel poorly with increasing weakness developed fever and decreased appetite generalized malaise. As a presents to the emergency center where he is a fever 103.1. As noted is well-known to the service for his hospitalizations regarding sepsis from urinary system. Most recently he has had E. coli and Klebsiella that are not highly resistant. He's had more resistant pathogens in the past but not as of late. For now we'll utilize ceftriaxone and fluids that every allowed him to have some improvement. Continue to straight cath per his protocol of 4 times a day. Bladder scan during the day to ensure that he is actively emptying his bladder adequately so he is not having too much retention resulting in further urinary infections. Cultures will determine the course of antibiotic therapy at the time of discharge. 09/13/2018 patient is sitting in fever overnight, feels better but inappropriately would like to go home although he certainly is not ready. He does have some underlying dementia. Fortunately he is comfortable. Tolerating current antibiotic therapy well. Not convinced that he is adequately imaging his bladder and bladder scans have been requested to ensure that the most straight cath being performed is adequate, and ensure that he is not having excessive bladder distention resulting in infections. Culture will help decide the final course of antibiotic therapy for home. Current Visit: No Status: Acute Code(s): A41.50 - GRAM-NEGATIVE SEPSIS, UNSPECIFIED SNOMED Code(s): 067616047
[2018-09-14] MEDS: LEVOTHYROXINE 100 MCG TAB PO SCH (06:31)
[2018-09-14 07:47] VITALS: BP 137/66; PULSE 65; RESP 18; TEMP 97.8
[2018-09-14] MEDS: HYDROCORTISONE 10 MG TAB PO SCH ×2 (08:17→13:22)
[2018-09-14] MEDS: LACTOBACILLUS ACIDOPH & BULGAR 1 EACH PACKET PO SCH ×2 (08:17→08:23)
[2018-09-14] MEDS: HEPARIN SODIUM,PORCINE 5,000 UNIT/ML 1 ML VIAL SQ SCH ×2 (08:17→08:22)
[2018-09-14] MEDS: VIT A,C & E-LUTEIN-MINERALS 1 EACH TAB PO SCH (08:17)
[2018-09-14] MEDS ORDERED: FAMOTIDINE 20 MG TAB PO SCH (09:00)
[2018-09-14] MEDS ORDERED: cefTRIAXone 2,000 MG in SODIUM CHLORIDE 0.9% 100 ML IVPB SCH (12:00)
--- NOTE | 2018-09-14 15:44 | P.DS ---
Providers Date of admission: 09/12/18 10:58 Attending physician: Sam Cortez Consults: 09/12/18 12:11 Consult Physician Routine Consulting Provider: Daniel Akins Reason/Comments: UTI Do you want consulting provider notified?: Yes Primary care physician: Vanessa Oneill [place] [facility] Course: 82-year-old gentleman with known history of multiple UTIs in the past does straight cath himself came in with compensative fever and generalized body aches denied any abdominal pain. Patient urine is significantly abnormal. Patient the past has E. coli Klebsiella pneumoniae, Enterobacter VAC including Citrobacter in the past all of them were pansensitive and sister to ceftriaxone patient was started on Zyprexa dose of which will be increased patient will be evaluated by infectious disease will obtain urine culture and blood cultures. Patient denied any cough runny nose chest x-ray did not show any pneumonic process denied any diarrhea. Patient denied any increased urinary frequency burning sensation 09/13/2018 maintained on IV Rocephin .sitting up at side of bed, feels better today. Afebrile, T-max 10 2.6. Urine culture currently growing gram-negative bacilli, preliminary blood culture negative.Good diet intake. Denies chest pain , palpitations or shortness of breath. Creatinine 1.18. 09/14/2018 Patient the has Klebsiella oxytoca in the urine which is sensitive to most antibiotics patient will be discharged on Cipro and it discussed with infectious disease. PHYSICAL EXAMINATION: GENERAL: The patient is alert and oriented x3, not in any acute distress. Well developed, well nourished. HEENT: Pupils are round and equally reacting to light. EOMI. No scleral icterus. No conjunctival pallor. Normocephalic, atraumatic. No pharyngeal erythema. No thyromegaly. CARDIOVASCULAR: S1 and S2 present. No murmurs, rubs, or gallops. PULMONARY: Chest is clear to auscultation, no wheezing or crackles. ABDOMEN: Soft, nontender, nondistended, normoactive bowel sounds. No palpable organomegaly. MUSCULOSKELETAL: No joint swelling or deformity. EXTREMITIES: No cyanosis, clubbing, or pedal edema. NEUROLOGICAL: Gross neurological examination did not reveal any focal deficits. SKIN: No rashes. Assessment: Urinary tract infection and sepsis secondary to UTI -hypoadrenalism -hypothyroidism -History of prostate cancer with radiation therapy leading to chronic urinary retention Patient Condition at Discharge: Fair Plan - Discharge Summary Discharge Rx Participant: No New Discharge Prescriptions: New Ciprofloxacin HCl [Cipro] 500 mg PO Q12H 5 Days #10 tab Continue Hydrocortisone [Cortef] 10 mg PO DAILY@1400 Hydrocortisone [Cortef] 20 mg PO QAM Vit C/E/Zn/Coppr/Lutein/Zeaxan [Preservision Areds 2 Softgel] 1 cap PO BID L.acidoph,Paracasei, B.lactis [Probiotic] 1 cap PO DAILY Levothyroxine Sodium [Synthroid] 100 mcg PO DAILY Cystex Cranberry Liquid 15 ml PO BID Discharge Medication List Hydrocortisone [Cortef] 10 mg PO DAILY@1400 07/27/17 [History] Hydrocortisone [Cortef] 20 mg PO QAM 07/27/17 [History] Vit C/E/Zn/Coppr/Lutein/Zeaxan [Preservision Areds 2 Softgel] 1 cap PO BID 03/18 [History] L.acidoph,Paracasei, B.lactis [Probiotic] 1 cap PO DAILY 04/17/18 [History] Levothyroxine Sodium [Synthroid] 100 mcg PO DAILY 05/18/18 [History] Cystex Cranberry Liquid 15 ml PO BID 09/12/18 [History] Ciprofloxacin HCl [Cipro] 500 mg PO Q12H 5 Days #10 tab 09/14/18 [Rx] Follow up Appointment(s)/Referral(s): Daniel Akins MD [STAFF PHYSICIAN] - 1 Week Vanessa Oneill MD [Primary Care Provider] - 3 Days Patient Instructions/Handouts: Urinary Tract Infection in Men (DC) Activity/Diet/Wound Care/Special Instructions: activity as tolerated regular diet as tolerated continue straight catheterization as instructed by urologist, follow up with dr beckman as scheduled 09/17/18 Discharge Disposition: HOME SELF-CARE
--- NOTE | 2018-09-14 16:38 | P.PN ---
Subjective Progress Note Date: 09/14/18 This is an 82-year-old male well-known to the infectious disease service for his multiple hospitalizations for catheter associated urinary tract infections. Patient has past medical history significant for prostate cancer status post surgical intervention and radiation therapy. He has chronic urinary obstruction and utilizes straight cath 3-4 times per day. His must assist. The patient developed fevers yesterday. He denies any change in his urinary symptoms. No pain or burning. His urine has been light yellow in color. He denies any decreased appetite. No muscle aches or joint aches. He denies any falls. His last bowel movement was yesterday and he does take a stool softener daily. His called EMS and patient was brought into [facility] emergency center for evaluation was found to have a temperature of 103.1, white count 9.9, lactic acid 0.9. Urinalysis was cloudy, nitrate positive, leukoesterase large, WBC greater than 182, bacteria many. Blood and urine cultures are status received. Patient was started on Rocephin [facility] He has been partially waiting for bed to open for him. Previous urine cultures have been positive for E. coli, and Klebsiella pneumoniae that are pansensitive. He does have a previous Pseudomonas in February 2018. Enterobacter and Citrobacter are susceptible to Rocephin. 09/13/2018 patient started to feel somewhat better. Less he would like to go home but had a fever overnight and culture process. 102.6 fever seems to be improved at this time. 09/14/2018 patient is now much improved. Sitting upright, has gotten dressed and is ambulatory with no difficulties. He is eating well and mentation is nearly to baseline. The patient's is present and is pleased with how well he is doing at this point in time, she is not concerned about taking him home today and that he has good strength and balance and is almost at his baseline. Objective - Vital Signs Vital signs: Vital Signs Temp 97.8 F 09/14/18 07:09 Pulse 65 09/14/18 07:09 Resp 18 09/14/18 07:09 BP 137/66 09/14/18 07:09 Pulse Ox 96 09/14/18 07:09 Intake & Output 09/13/18 09/14/18 09/14/18 18:59 06:59 18:59 Intake Total 1200 300 Output Total 0 180 100 Balance 1200 120 -100 Intake: Oral 1200 300 Output: Urine 100 Post Void Residual 0 180 Other: Voiding Method Self-Catheterization Incontinent Urinal Incontinent # Voids 1 5 1 # Bowel Movements 1 - Exam Pleasant 82-year-old male who is comfortable at this point in time on the ER stretcher. HEENT: Anicteric conjunctiva are pink and moist nasal mucosa grossly intact without significant lesions, there is no thrush. Neck: The neck is supple without significant lymphadenopathy or thyromegaly. Lungs: Good bilateral air entry without significant crackles or wheezing. There is no significant bronchial sounds. Heart: Regular rate and rhythm with an audible S1-S2, no S3 no S4. There is no significant murmur click or rub, PMI was nondisplaced. Abdomen: Positive bowel sounds soft and nontender without palpable masses or organomegaly. There was no guarding or rebound. Extremities: The upper extremities have excellent pulses they are symmetric, no significant petechiae or telangiectasia. No splinter hemorrhages were noted. Lower extremities without edema, ulcerations. Dorsalis pedis is weak bilaterally. Neuro: Patient is now much more interactive, he is awake alert oriented to person place and time recognizes the observer by name as well as his without difficulty. He is able to ambulate without difficulty. - Labs CBC & Chem 7: 09/13/18 08:09 09/13/18 08:09 Labs: Microbiology - Last 24 Hours (Table) 09/12/18 08:50 Blood Culture - Preliminary Blood No Growth after 48 hours 09/12/18 10:02 Urine Culture - Final Urine,Catheterized Klebsiella oxytoca 09/13/18 01:21 Blood Culture - Preliminary Blood No Growth after 24 hours Laboratory Results WBC 7.7 k/uL (3.8-10.6) 09/13/18 08:09 RBC 3.15 m/uL (4.30-5.90) L 09/13/18 08:09 Hgb 10.2 gm/dL (13.0-17.5) L 09/13/18 08:09 Hct 31.7 % (39.0-53.0) L 09/13/18 08:09 MCV 100.5 fL (80.0-100.0) H 09/13/18 08:09 MCH 32.4 pg (25.0-35.0) 09/13/18 08:09 MCHC 32.3 g/dL (31.0-37.0) 09/13/18 08:09 RDW 13.5 % (11.5-15.5) 09/13/18 08:09 Plt Count 169 k/uL (150-450) 09/13/18 08:09 Neutrophils % 77 % 09/12/18 08:50 Lymphocytes % 15 % 09/12/18 08:50 Monocytes % 6 % 09/12/18 08:50 Eosinophils % 1 % 09/12/18 08:50 Basophils % 0 % 09/12/18 08:50 Neutrophils # 7.6 k/uL (1.3-7.7) 09/12/18 08:50 Lymphocytes # 1.5 k/uL (1.0-4.8) 09/12/18 08:50 Monocytes # 0.6 k/uL (0-1.0) 09/12/18 08:50 Eosinophils # 0.1 k/uL (0-0.7) 09/12/18 08:50 Basophils # 0.0 k/uL (0-0.2) 09/12/18 08:50 Sodium 140 mmol/L (137-145) 09/13/18 08:09 Potassium 4.1 mmol/L (3.5-5.1) 09/13/18 08:09 Chloride 109 mmol/L (98-107) H 09/13/18 08:09 Carbon Dioxide 23 mmol/L (22-30) 09/13/18 08:09 Anion Gap 8 mmol/L 09/13/18 08:09 BUN 16 mg/dL (9-20) 09/13/18 08:09 Creatinine 1.18 mg/dL (0.66-1.25) 09/13/18 08:09 Est GFR (CKD-EPI)AfAm 65 (>60 ml/min/1.73 sqM) 09/13/18 08:09 Est GFR (CKD-EPI)NonAf 56 (>60 ml/min/1.73 sqM) 09/13/18 08:09 Glucose 90 mg/dL (74-99) 09/13/18 08:09 Plasma Lactic Acid [place] 0.9 mmol/L (0.7-2.0) 09/12/18 08:50 Calcium 7.8 mg/dL (8.4-10.2) L 09/13/18 08:09 Total Bilirubin 0.5 mg/dL (0.2-1.3) 09/12/18 08:50 AST 25 U/L (17-59) 09/12/18 08:50 ALT 28 U/L (21-72) 09/12/18 08:50 Alkaline Phosphatase 57 U/L (38-126) 09/12/18 08:50 Total Protein 6.5 g/dL (6.3-8.2) 09/12/18 08:50 Albumin 3.4 g/dL (3.5-5.0) L 09/12/18 08:50 Urine Color Yellow 09/12/18 10:02 Urine Appearance Cloudy (Clear) 09/12/18 10:02 Urine pH 6.0 (5.0-8.0) 09/12/18 10:02 Ur Specific [place] 1.008 (1.001-1.035) 09/12/18 10:02 Urine Protein Trace (Negative) H 09/12/18 10:02 Urine Glucose (UA) Negative (Negative) 09/12/18 10:02 Urine Ketones Negative (Negative) 09/12/18 10:02 Urine Blood Negative (Negative) 09/12/18 10:02 Urine Nitrite Positive (Negative) 09/12/18 10:02 Urine Bilirubin Negative (Negative) 09/12/18 10:02 Urine Urobilinogen <2.0 mg/dL (<2.0) 09/12/18 10:02 Ur Leukocyte Esterase Large (Negative) H 09/12/18 10:02 Urine RBC 5 /hpf (0-5) 09/12/18 10:02 Urine WBC >182 /hpf (0-5) H 09/12/18 10:02 Urine WBC Clumps Rare /hpf (None) H 09/12/18 10:02 Urine Bacteria Many /hpf (None) H 09/12/18 10:02 Urine Mucus Rare /hpf (None) H 09/12/18 10:02 Influenza Type A RNA Not Detected (Not Detectd) 09/12/18 08:50 Influenza Type B (PCR) Not Detected (Not Detectd) 09/12/18 08:50 Microbiology 01/10/19 08:50 Blood Blood Culture - Preliminary No Growth after 48 hours 09/12/18 10:02 Urine,Catheterized Urine Culture - Final Klebsiella oxytoca 09/13/18 01:21 Blood Blood Culture - Preliminary No Growth after 24 hours Assessment and Plan (1) Urinary tract infection Status: Acute Code(s): N39.0 - URINARY TRACT INFECTION, SITE NOT SPECIFIED SNOMED Code(s): 31351873 (2) Gram negative sepsis Narrative/Plan: Patient relates he suddenly started to feel poorly with increasing weakness developed fever and decreased appetite generalized malaise. As a presents to the emergency center where he is a fever 103.1. As noted is well-known to the service for his hospitalizations regarding sepsis from urinary system. Most recently he has had E. coli and Klebsiella that are not highly resistant. He's had more resistant pathogens in the past but not as of late. For now we'll utilize ceftriaxone and fluids that every allowed him to have some improvement. Continue to straight cath per his protocol of 4 times a day. Bladder scan during the day to ensure that he is actively emptying his bladder adequately so he is not having too much retention resulting in further urinary infections. Cultures will determine the course of antibiotic therapy at the time of discharge. 09/13/2018 patient is sitting in fever overnight, feels better but inappropriately would like to go home although he certainly is not ready. He does have some underlying dementia. Fortunately he is comfortable. Tolerating current antibiotic therapy well. Not convinced that he is adequately imaging his bladder and bladder scans have been requested to ensure that the most straight cath being performed is adequate, and ensure that he is not having excessive bladder distention resulting in infections. Culture will help decide the final course of antibiotic therapy for home. 09/14/2018 patient continues to have improvement. Klebsiella oxytoca was exited from his urine and surprisingly is susceptible to quinolone and constantly be discharged home on ciprofloxacin 500 mg every 12 hours with plan somewhat longer course of therapy given his obstruction of his urinary system and concerns to the prostate as a potential source of the infection. Follow up in the office in the near future. We discussed the importance of his straight cath process in the technique. Technique seems not to be an issue but the frequency of straight cathing could be a problem and ideally he would also straight cath at least once during the day to reduce his bladder volume. The will assist to work toward this goal. Discharge home today. Status: Acute Code(s): A41.50 - GRAM-NEGATIVE SEPSIS, UNSPECIFIED SNOMED Code(s): 411307969
== END 2018-09-14 15:14 | disposition home or self-care (01) | DRG 698 ==
LOC: EC 08:38 → 4MS4W 10:58
PROVIDERS: ADMIT Internal Medicine; ATTEND Internal Medicine
DX: T83.518A Infection and inflammatory reaction due to other urinary catheter, initial encounter (principal); A41.59 Other Gram-negative sepsis; G93.41 Metabolic encephalopathy; N39.0 Urinary tract infection, site not specified; E27.40 Unspecified adrenocortical insufficiency; E03.9 Hypothyroidism, unspecified; F03.90 Unspecified dementia, unspecified severity, without behavioral disturbance, psychotic disturbance, mood disturbance, and anxiety; H35.30 Unspecified macular degeneration; N13.9 Obstructive and reflux uropathy, unspecified; R32 Unspecified urinary incontinence; E23.6 Other disorders of pituitary gland; D64.9 Anemia, unspecified; Z79.890 Hormone replacement therapy; Z79.52 Long term (current) use of systemic steroids; Z87.891 Personal history of nicotine dependence; Z87.440 Personal history of urinary (tract) infections; Z85.46 Personal history of malignant neoplasm of prostate; Z92.3 Personal history of irradiation; Z80.0 Family history of malignant neoplasm of digestive organs; Z82.3 Family history of stroke; Y84.6 Urinary catheterization as the cause of abnormal reaction of the patient, or of later complication, without mention of misadventure at the time of the procedure
CPT/HCPCS: 36415; 71046; 80048; 80053; 81001; 83605; 85025; 85027; 87040; 87077; 87086; 87186; 87502; 93005; 96361; 96365; 99285

== ENCOUNTER 2018-12-01 19:27 | Inpatient (IN) | payer MEDICARE, BC ==
[2018-12-01] MEDS ORDERED: SODIUM CHLORIDE 0.9% 1,000 ML IV STA (19:36)
[2018-12-01] MEDS ORDERED: SODIUM CHLORIDE 0.9% 500 ML 500 ML IV STA (19:36)
[2018-12-01] MEDS ORDERED: IBUPROFEN 800 MG TAB PO STA (19:37)
[2018-12-01] MEDS ORDERED: ACETAMINOPHEN TAB 500 MG TAB PO STA (19:37)
--- NOTE | 2018-12-01 19:44 | ED ---
Weakness HPI - General Chief complaint: Weakness Stated complaint: Weakness Time Seen by Provider: 12/01/18 19:35 Source: patient, RN notes reviewed, old records reviewed Mode of arrival: EMS Limitations: no limitations - History of Present Illness Initial comments: This is a 3-year-old male the ER for evaluation. Patient does say for evaluation regards to weakness. Patient has known fever. Admits occasional cough today felt fine yesterday weakness in the day decreased appetite, no nausea vomiting or diarrhea. No abdominal pain no chest pain. No recent change in medications no known significant sick contacts. Recent hospitalization was 3 months ago MD Complaint: generalized weakness -: hour(s) Location: generalized Severity: moderate Severity scale (1-10): 4 Quality: other (No pain) Consistency: constant Improves with: rest Worsens with: none Context: new medication Associated Symptoms: denies other symptoms - Related Data Home Medications Medication Instructions Recorded Confirmed Hydrocortisone [Cortef] 10 mg PO DAILY@1400 07/27/17 12/01/18 Hydrocortisone [Cortef] 20 mg PO QAM 07/27/17 12/01/18 Vit C/E/Zn/Coppr/Lutein/Zeaxan 1 cap PO BID 03/18/18 12/01/18 [Preservision Areds 2 Softgel] L.acidoph,Paracasei, B.lactis 1 cap PO DAILY 04/17/18 12/01/18 [Probiotic] Levothyroxine Sodium [Synthroid] 100 mcg PO DAILY 05/18/18 12/01/18 Cystex Cranberry Liquid 15 ml PO BID 09/12/18 12/01/18 Allergies Allergy/AdvReac Type Severity Reaction Status Date / Time No Known Allergies Allergy Verified 12/01/18 20:10 Review of Systems ROS Statement: Those systems with pertinent positive or pertinent negative responses have been documented in the HPI. ROS Other: All systems not noted in ROS Statement are negative. Past Medical History Past Medical History: Cancer, Eye Disorder, Thyroid Disorder Additional Past Medical History / Comment(s): Prostate CA with radiation/urinary retention/self caths at 9pm and midnight and voids during daytime hours/ occasional incontinence of urine, frequent UTIs and has confusion with UTIs, stable pituitary mass, hyponatremia, chronic anemia, bilateral macular degeneration, hypothyroidism, pt's legs are cold all the time. History of Any Multi-Drug Resistant Organisms: Other MDRO Past Surgical History: Adenoidectomy, Tonsillectomy Additional Past Surgical History / Comment(s): EGD/colonoscopy. Past Anesthesia/Blood Transfusion Reactions: No Reported Reaction Past Psychological History: No Psychological Hx Reported Smoking Status: Former smoker Past Alcohol Use History: None Reported Past Drug Use History: None Reported - Past Family History Father Family Medical History: Cancer Additional Family Medical History / Comment(s): Colon CA, at 74. Mother Family Medical History: No Reported History, CVA/TIA Additional Family Medical History / Comment(s): Mother of a CVA at the age of 83yrs. General Exam Limitations: no limitations General appearance: alert, in no apparent distress Head exam: Present: atraumatic, normocephalic, normal inspection Eye exam: Present: normal appearance, PERRL, EOMI. Absent: scleral icterus, conjunctival injection, periorbital swelling ENT exam: Present: normal exam, mucous membranes moist Neck exam: Present: normal inspection. Absent: tenderness, meningismus, lymphadenopathy Respiratory exam: Present: normal lung sounds bilaterally. Absent: respiratory distress, wheezes, rales, rhonchi, stridor Cardiovascular Exam: Present: regular rate, normal rhythm, normal heart sounds. Absent: systolic murmur, diastolic murmur, rubs, gallop, clicks GI/Abdominal exam: Present: soft, normal bowel sounds. Absent: distended, tenderness, guarding, rebound, rigid Extremities exam: Present: normal inspection, full ROM, normal capillary refill. Absent: tenderness, pedal edema, joint swelling, calf tenderness Back exam: Present: normal inspection Neurological exam: Present: alert, oriented X3, CN II-XII intact Psychiatric exam: Present: normal affect, normal mood Skin exam: Present: warm, dry, intact, normal color. Absent: rash Course Vital Signs 12/01/18 12/01/18 19:30 19:34 Temperature 102.9 F H Pulse Rate 76 Respiratory 16 Rate Blood Pressure 138/90 O2 Sat by Pulse 95 Oximetry - Reevaluation(s) Reevaluation #1: 12/01/18 20:34 Medical records reviewed Reevaluation #2: 12/01/18 20:34 Patient's improvement with fever control and hydration EKG Findings - EKG Comments: EKG Findings:: EKG shows sinus rhythm rate of 10 75, NV 160, QRS 132, QTc 446 Medical Decision Making - Medical Decision Making 83 male the ER for evaluation, positive pneumonia, and x-ray. Positive fever. Patient will admit for IV antibiotics, hydration - Lab Data Result diagrams: 12/01/18 19:50 12/01/18 19:50 Lab Results 12/01/18 12/01/18 12/01/18 Range/Units 19:50 19:50 19:50 WBC 7.8 (3.8-10.6) k/uL RBC 3.65 L (4.30-5.90) m/uL Hgb 11.8 L (13.0-17.5) gm/dL Hct 35.8 L (39.0-53.0) % MCV 97.9 (80.0-100.0) fL MCH 32.4 (25.0-35.0) pg MCHC 33.0 (31.0-37.0) g/dL RDW 13.5 (11.5-15.5) % Plt Count 152 (150-450) k/uL Neutrophils % 68 % Lymphocytes % 22 % Monocytes % 7 % Eosinophils % 1 % Basophils % 0 % Neutrophils # 5.3 (1.3-7.7) k/uL Lymphocytes # 1.7 (1.0-4.8) k/uL Monocytes # 0.6 (0-1.0) k/uL Eosinophils # 0.1 (0-0.7) k/uL Basophils # 0.0 (0-0.2) k/uL PT (9.0-12.0) sec INR (<1.2) APTT (22.0-30.0) sec Sodium 134 L (137-145) mmol/L Potassium 4.3 (3.5-5.1) mmol/L Chloride 101 (98-107) mmol/L Carbon Dioxide 24 (22-30) mmol/L Anion Gap 9 mmol/L BUN 22 H (9-20) mg/dL Creatinine 1.10 (0.66-1.25) mg/dL Est GFR (CKD-EPI)AfAm 71 (>60 ml/min/1.73 sqM) Est GFR (CKD-EPI)NonAf 61 (>60 ml/min/1.73 sqM) Glucose 100 H (74-99) mg/dL Plasma Lactic Acid Garland (0.7-2.0) mmol/L Calcium 8.1 L (8.4-10.2) mg/dL Phosphorus 3.0 (2.5-4.5) mg/dL Magnesium 1.8 (1.6-2.3) mg/dL Total Bilirubin 0.3 (0.2-1.3) mg/dL AST 19 (17-59) U/L ALT 29 (21-72) U/L Alkaline Phosphatase 62 (38-126) U/L Total Protein 6.2 L (6.3-8.2) g/dL Albumin 3.3 L (3.5-5.0) g/dL Influenza Type A RNA Not Detected (Not Detectd) Influenza Type B (PCR) Not Detected (Not Detectd) 12/01/18 12/01/18 Range/Units 19:50 19:50 WBC (3.8-10.6) k/uL RBC (4.30-5.90) m/uL Hgb (13.0-17.5) gm/dL Hct (39.0-53.0) % MCV (80.0-100.0) fL MCH (25.0-35.0) pg MCHC (31.0-37.0) g/dL RDW (11.5-15.5) % Plt Count (150-450) k/uL Neutrophils % % Lymphocytes % % Monocytes % % Eosinophils % % Basophils % % Neutrophils # (1.3-7.7) k/uL Lymphocytes # (1.0-4.8) k/uL Monocytes # (0-1.0) k/uL Eosinophils # (0-0.7) k/uL Basophils # (0-0.2) k/uL PT 10.2 (9.0-12.0) sec INR 0.9 (<1.2) APTT 28.9 (22.0-30.0) sec Sodium (137-145) mmol/L Potassium (3.5-5.1) mmol/L Chloride (98-107) mmol/L Carbon Dioxide (22-30) mmol/L Anion Gap mmol/L BUN (9-20) mg/dL Creatinine (0.66-1.25) mg/dL Est GFR (CKD-EPI)AfAm (>60 ml/min/1.73 sqM) Est GFR (CKD-EPI)NonAf (>60 ml/min/1.73 sqM) Glucose (74-99) mg/dL Plasma Lactic Acid [place] 1.2 (0.7-2.0) mmol/L Calcium (8.4-10.2) mg/dL Phosphorus (2.5-4.5) mg/dL Magnesium (1.6-2.3) mg/dL Total Bilirubin (0.2-1.3) mg/dL AST (17-59) U/L ALT (21-72) U/L Alkaline Phosphatase (38-126) U/L Total Protein (6.3-8.2) g/dL Albumin (3.5-5.0) g/dL Influenza Type A RNA (Not Detectd) Influenza Type B (PCR) (Not Detectd) - Radiology Data Radiology results: report reviewed (Chest x-rays positive for pneumonia), image reviewed Disposition Clinical Impression: Fever, Dehydration, Weakness, Community acquired bacterial pneumonia Disposition: ADMITTED IP TO THIS [facility] Condition: Good Is patient prescribed a controlled substance at d/c from ED?: No Referrals: Vanessa Oneill MD [Primary Care Provider] - 1-2 days
[2018-12-01 20:14] LABS: Basophils % (A) 0 %; Eosinophils # (A) 0.1 k/uL (0-0.7); Eosinophils % (A) 1 %; HCT 35.8 % (39.0-53.0); HGB 11.8 gm/dL (13.0-17.5); Lymphocytes # (A) 1.7 k/uL (1.0-4.8); Lymphocytes % (A) 22 %; MCH 32.4 pg (25.0-35.0); MCV 97.9 fL (80.0-100.0); Mean Platelet Volume 6.6; Monocytes # (A) 0.6 k/uL (0-1.0); Monocytes % (A) 7 %; Neutrophils # (A) 5.3 k/uL (1.3-7.7); Neutrophils % (A) 68 %; Platelet Count 152 k/uL (150-450); RBC 3.65 m/uL (4.30-5.90); RDW 13.5 % (11.5-15.5); WBC 7.8 k/uL (3.8-10.6)
--- NOTE | 2018-12-01 20:14 | XR ---
EXAMINATION TYPE: XR chest 2V DATE OF EXAM: 12/01/2018 COMPARISON: 09/12/2018 HISTORY: Weakness TECHNIQUE: Frontal and lateral views of the chest are obtained. FINDINGS: There is slight blunting of left costophrenic angle. There is no heart failure. Heart and mediastinum are normal. There is no pulmonary consolidation. Bony thorax is intact. IMPRESSION: There is new mild pleural reaction at the lateral left lung base compared to old exam. N ormal heart.
[2018-12-01 20:25] LABS: Albumin 3.3 g/dL (3.5-5.0); Calcium 8.1 mg/dL (8.4-10.2); Magnesium 1.8 mg/dL (1.6-2.3); Potassium 4.3 mmol/L (3.5-5.1); Total Bilirubin 0.3 mg/dL (0.2-1.3); Total Protein 6.2 g/dL (6.3-8.2)
[2018-12-01 20:28] LABS: INR 0.9 (<1.2); Partial Thromboplastin Time 28.9 sec (22.0-30.0); Prothrombin Time 10.2 sec (9.0-12.0)
[2018-12-01] MEDS ORDERED: IPRATROPIUM-ALBUTEROL 3 ML NEB INHALATION STA (20:31)
[2018-12-01] MEDS ORDERED: ALBUTEROL NEBULIZED 2.5 MG/3 ML INHALATION PRN (20:31)
[2018-12-01] MEDS ORDERED: AZITHROMYCIN 500 MG in SODIUM CHLORIDE 0.9% 250 ML IVPB STA (20:31)
[2018-12-01] MEDS ORDERED: PNEUMONIA PROTOCOL UTILIZED 1 EACH MISC PO PRN (20:31)
[2018-12-01] MEDS ORDERED: methylPREDNISolone SOD SUCCI 125 MG/2 ML VIAL IV STA (20:35)
[2018-12-01] MEDS ORDERED: SODIUM CHLORIDE 0.9% 1,000 ML IV SCH (20:45)
[2018-12-01] MEDS ORDERED: ACETAMINOPHEN TAB 325 MG TAB PO PRN (23:14)
[2018-12-02 01:21] VITALS: BMI 31.7
[2018-12-02] MEDS: methylPREDNISolone SOD SUCCI 125 MG/2 ML VIAL IV SCH ×5 (01:22→23:06)
[2018-12-02] MEDS: IPRATROPIUM-ALBUTEROL 3 ML NEB INHALATION SCH ×4 (08:19→20:44)
[2018-12-02] MEDS: amLODIPine 5 MG TAB PO SCH (09:02)
[2018-12-02] MEDS: ENOXAPARIN 40 MG/0.4 ML SYRINGE SQ SCH (09:02)
[2018-12-02] MEDS: TAMSULOSIN 0.4 MG CAP.ER.24H PO SCH (09:02)
--- NOTE | 2018-12-02 09:15 | XR ---
EXAMINATION TYPE: XR chest 2V DATE OF EXAM: 12/02/2018 COMPARISON: 12/01/2018 TECHNIQUE: PA and lateral views submitted. HISTORY: Cough, follow-up pneumonia FINDINGS: Heart size is stable. There is no pleural effusion or pneumothorax. There are nodular changes in the right upper lobe. No overt failure. Underlying COPD suspected. IMPRESSION: 1. Right upper lobe nodules recommend CT of the chest.
[2018-12-02] MEDS: LEVOTHYROXINE 100 MCG TAB PO SCH (14:49)
[2018-12-02 19:09] LABS: Appearance,Urine Clear (Clear); Bilirubin,Urine Negative (Negative); Blood,Urine Negative (Negative); Color,Urine Light Yellow; Glucose,Urine (UA) Negative (Negative); Ketones,Urine Negative (Negative); Leukocyte Esterase,Urine Large (Negative); Nitrite,Urine Negative (Negative); Protein,Urine Negative (Negative); RBC,Urine 1 /hpf (0-5); Urobilinogen,Urine <2.0 mg/dL (<2.0); WBC,Urine 50 /hpf (0-5)
[2018-12-02] MEDS: AZITHROMYCIN 500 MG TAB PO SCH (20:15)
[2018-12-02] MEDS: VIT A,C & E-LUTEIN-MINERALS 1 EACH TAB PO SCH (20:15)
[2018-12-02] MEDS ORDERED: [UNRECOGNIZED DRUG - OTHER] PO SCH (21:00)
--- NOTE | 2018-12-02 22:56 | P.HPIM ---
History of Present Illness H&P Date: 12/02/18 Chief Complaint: Fever Patient is a 83-year-old male with a known history of prostate cancer status post radiation/urinary retention/self cath at 9 PM and midnight and voids during daytime hours/occasional incontinence of urine, frequent urinary tract infections, stable pituitary mass, hypothyroidism, bilateral macular degeneration, mild cognitive impairment and the other multiple medical problems was brought to the hospital due to fever and generalized weakness. Patient does have decreased appetite and weak. Patient was febrile on admission with T-max 102.5. Patient does have a history of urinary retention and multiple urinary tract infections. Patient does have cough without any sputum production. Denied any recent illnesses. Last hospitalization about 3 months ago. Chest x-ray showed there is mild pleural reaction at the left lung lateral base compared to old exam. Urinalysis showed large leukocyte esterase and WBC greater than 50. No leukocytosis. Patient is a poor historian Review of Systems Constitutional: Patient does have fever or chills . No generalized weakness or weight loss. Abdomen: Patient denied nausea vomiting and diarrhea and abdominal pain. Cardiovascular: Patient denies any chest pain or short of breath no palpitations. Respiratory: patient denied any cough is from production. No shortness of breath Neurologic: Patient denied any numbness or tingling headache. Musculoskeletal: Patient denies any complaints of joint swelling or deformity. Complete review of systems could not be obtained from the patient. Past Medical History Past Medical History: Cancer, Eye Disorder, Thyroid Disorder Additional Past Medical History / Comment(s): Prostate CA with radiation/urinary retention/self caths at 9pm and midnight and voids during daytime hours/ occasional incontinence of urine, frequent UTIs and has confusion with UTIs, stable pituitary mass, hyponatremia, chronic anemia, bilateral macular degene ration, hypothyroidism, pt's legs are cold all the time. History of Any Multi-Drug Resistant Organisms: Other MDRO Past Surgical History: Adenoidectomy, Tonsillectomy Additional Past Surgical History / Comment(s): EGD/colonoscopy. Past Anesthesia/Blood Transfusion Reactions: No Reported Reaction Past Psychological History: No Psychological Hx Reported Additional Psychological History / Comment(s): and lives in the family home. 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 No international travel. No current animal exposures. Pt has a cane, walker and 3 wheeled electric scooter. He drives short distances. His spouse drives. 3 adult children live nearby and are helpful. Smoking Status: Former smoker Past Alcohol Use History: None Reported Additional Past Alcohol Use History / Comment(s): Patient was a smoker 3 packs per day and smoked for less than 15 years quitting 15 years ago. He lives at home with his . No illicit drug use or alcohol use. There are 3 adult children that are nearby that help at home. 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 No international travel. No current ani mal exposures. Past Drug Use History: None Reported - Past Family History Father Family Medical History: Cancer Additional Family Medical History / Comment(s): Colon CA, at 74. Mother Family Medical History: No Reported History, CVA/TIA Additional Family Medical History / Comment(s): Mother of a CVA at the age of 83yrs. Medications and Allergies Home Medications Medication Instructions Recorded Confirmed Type Hydrocortisone [Cortef] 10 mg PO DAILY@1400 07/27/17 12/01/18 History Hydrocortisone [Cortef] 20 mg PO QAM 07/27/17 12/01/18 History Vit C/E/Zn/Coppr/Lutein/Zeaxan 1 cap PO BID 03/18/18 12/01/18 History [Preservision Areds 2 Softgel] L.acidoph,Paracasei, B.lactis 1 cap PO DAILY 04/17/18 12/01/18 History [Probiotic] Levothyroxine Sodium [Synthroid] 100 mcg PO DAILY 05/18/18 12/01/18 History Cystex Cranberry Liquid 15 ml PO BID 09/12/18 12/01/18 History Allergies Allergy/AdvReac Type Severity Reaction Status Date / Time No Known Allergies Allergy Verified 12/01/18 20:10 Physical Exam Vitals: Vital Signs Temp Pulse Pulse Resp BP BP Pulse Ox 12/02/18 08:57 98.2 F 94 16 148/70 95 12/02/18 08:35 68 12/02/18 08:19 68 12/02/18 05:57 168/85 12/02/18 05:00 144/79 12/02/18 04:01 134/70 12/02/18 03:00 133/65 12/02/18 01:04 98.1 F 50 L 18 126/72 93 L 12/01/18 21:55 98.7 F 81 19 101/57 95 12/01/18 21:47 69 12/01/18 21:30 70 12/01/18 19:34 76 16 138/90 95 12/01/18 19:30 102.9 F H Intake and Output 12/01/18 12/02/18 12/02/18 22:59 06:59 14:59 Other: Voiding Method Self-Catheterization Self-Catheterization Weight 97.522 kg PHYSICAL EXAMINATION: Patient is lying in the bed comfortably, no acute distress, awake alert and orientedx2.. HEENT: Normocephalic. Neck is supple. Pupils reactive. Nostrils clear. Oral cavity is moist. Ears reveal no drainage. Neck reveals no JVD, carotid bruits, or thyromegaly. CHEST EXAMINATION: Trachea is central. Symmetrical expansion. Bibasilar diminished air entry. Lung frey clear to auscultation and percussion. CARDIAC: Normal S1, S2 with no gallops. No murmurs ABDOMEN: Soft. Bowel sounds normal. No organomegaly. No abdominal bruits. Extremities: reveal no edema. No clubbing or cyanosis Neurologically awake, alert, oriented x2 with well-coordinated movements. Cognitive impairment. No focal deficits noted Skin: No rash or skin lesions. Psychiatric: Coperative. Nonsuicidal Musculoskeletal: No joint swelling or deformity. Normal range of motion. Results CBC & Chem 7: 12/01/18 19:50 12/01/18 19:50 Labs: Abnormal Lab Results - Last 24 Hours (Table) 12/01/18 12/01/18 Range/Units 19:50 19:50 RBC 3.65 L (4.30-5.90) m/uL Hgb 11.8 L (13.0-17.5) gm/dL Hct 35.8 L (39.0-53.0) % Sodium 134 L (137-145) mmol/L BUN 22 H (9-20) mg/dL Glucose 100 H (74-99) mg/dL Calcium 8.1 L (8.4-10.2) mg/dL Total Protein 6.2 L (6.3-8.2) g/dL Albumin 3.3 L (3.5-5.0) g/dL Thrombosis Risk Factor Assmnt - DVT/VTE Prophylaxis DVT/VTE Prophylaxis: Pharmacologic Prophylaxis ordered - Choose All That Apply Any of the Below Risk Factors Present?: Yes Each Factor Represents 1 point: Obesity (BMI >25) Each Risk Factor Represents 3 Points: Age 75 years or older Thrombosis Risk Factor Assessment Total Risk Factor Score: 4 Thrombosis Risk Factor Assessment Level: Moderate Risk Assessment and Plan Assessment: Fever likely secondary to left lower lobe infiltrate/pneumonia Possible urinary tract infection History of prostate cancer and chronic urine retention Hypothyroidism Stable pituitary mass Bilateral macular degeneration Previous history of smoking DVT prophylaxis on Lovenox Plan: Patient will be contingent on gentle hydration. Continue with antibiotics in the form of ceftriaxone and azithromycin. Patient was also started on DuoNeb's and IV steroids. Follow-up blood cultures and urine cultures. Continue with home medications and further recommendations based on the clinical course. Time with Patient: Greater than 30
[2018-12-03] MEDS: methylPREDNISolone SOD SUCCI 125 MG/2 ML VIAL IV SCH ×2 (05:56→11:54)
[2018-12-03] MEDS: LEVOTHYROXINE 100 MCG TAB PO SCH (06:09)
[2018-12-03 08:08] LABS: Basophils % (A) 0 %; Eosinophils # (A) 0.1 k/uL (0-0.7); Eosinophils % (A) 0 %; HCT 35.7 % (39.0-53.0); HGB 11.4 gm/dL (13.0-17.5); Lymphocytes # (A) 0.9 k/uL (1.0-4.8); Lymphocytes % (A) 5 %; MCH 31.8 pg (25.0-35.0); MCHC 31.8 g/dL (31.0-37.0); MCV 99.8 fL (80.0-100.0); Monocytes # (A) 0.4 k/uL (0-1.0); Monocytes % (A) 2 %; Neutrophils # (A) 18.1 k/uL (1.3-7.7); Neutrophils % (A) 93 %; Platelet Count 201 k/uL (150-450); RBC 3.58 m/uL (4.30-5.90); RDW 13.7 % (11.5-15.5); WBC 19.4 k/uL (3.8-10.6)
[2018-12-03] MEDS: IPRATROPIUM-ALBUTEROL 3 ML NEB INHALATION SCH ×4 (08:15→20:04)
[2018-12-03 08:19] LABS: Calcium 9.3 mg/dL (8.4-10.2)
[2018-12-03] MEDS: VIT A,C & E-LUTEIN-MINERALS 1 EACH TAB PO SCH ×2 (11:48→21:00)
[2018-12-03] MEDS: ENOXAPARIN 40 MG/0.4 ML SYRINGE SQ SCH (11:48)
[2018-12-03] MEDS: TAMSULOSIN 0.4 MG CAP.ER.24H PO SCH (11:48)
[2018-12-03] MEDS: amLODIPine 5 MG TAB PO SCH (11:48)
--- NOTE | 2018-12-03 19:03 | P.GSCN ---
History of Present Illness Consult date: 12/03/18 Reason for Consult: UTI, urinary retention Requesting physician: Atif Eisenberg History of present illness: This is an 83-year-old white male well known to me. He was treated with radiation therapy in 1995. He has a history of hypogonadism, and his PSA level erasmo when he received testosterone supplementation. This was consistent with biochemical failure, and biopsies in 2008 confirmed recurrent prostate cancer. The PSA level has decreased since the testosterone supplementation was discontinued, and increased to 2.2. Repeat biopsies in 2013 suggest that his disease is stable. He empties his bladder incompletely, but declines treatment with an alpha fara due to his dizziness. Cryosurgery was discussed as a treatment option for his recurrent prostate cancer, which he declines. He underwent a circumcision for tight phimosis and resulting voiding difficulty, and has recovered well. He has experienced decreased energy, perhaps due to hypogonadism. He is interested and resumption of testosterone supplementation, but understands that this can cause cancer progression. Ultimately, it was decided to begin Casodex, but he quit taking this due to side effects. He received testosterone injections but his energy level failed to improve. His most recent PSA level was 0.19. He was hospitalized in early 2016 with hyponatremia, and was found to be in urinary retention. He failed at least 2 voiding trials; he is now voiding but empties his bladder incompletely. He performs CIC at . He quit taking tamsulosin, as he felt this caused urinary leakage. He was given samples of Rapaflo but is no longer taking it. He recently experienced hematuria and increased incontinence, which improved following dilat ion of a bulbous urethral stricture. 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 He has been treated for a Pseudomonas UTI. He was hospitalized in September 2017 and was found to have hydronephrosis. He increased the frequency of CIC to 4 times a day, but now performs CIC once daily. Voiding diary showed his highest cath PVR to be 300 cc. He was advised that he could discontinue CIC, but he wishes to continue to do so at bedtime. He is now admitted after presenting to the emergency room with fever and weakness. Review of Systems - Constitutional Reports chills, Reports fever, Reports weakness - Respiratory Reports cough, Denies dyspnea - Gastrointestinal Denies nausea, Denies vomiting - Genitourinary Denies dysuria, Denies hematuria Past Medical History Past Medical History: Cancer, Eye Disorder, Thyroid Disorder Additional Past Medical History / Comment(s): Prostate CA with radiation/urinary retention/self caths at 9pm and midnight and voids during daytime hours/ occasional incontinence of urine, frequent UTIs and has confusion with UTIs, stable pituitary mass, hyponatremia, chronic anemia, bilateral macular degeneration, hypothyroidism, pt's legs are cold all the time. History of Any Multi-Drug Resistant Organisms: Other MDRO Past Surgical History: Adenoidectomy, Tonsillectomy Additional Past Surgical History / Comment(s): EGD/colonoscopy. Past Anesthesia/Blood Transfusion Reactions: No Reported Reaction Past Psychological History: No Psychological Hx Reported Additional Psychological History / Comment(s): and lives in the family home. 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 No international travel. No current animal exposures. Pt has a cane, walker and 3 wheeled electric scooter. He drives short distances. His spouse drives. 3 adult children live nearby and are helpful. Smoking Status: Former smoker Past Alcohol Use History: None Reported Additional Past Alcohol Use History / Comment(s): Patient was a smoker 3 packs per day and smoked for less than 15 years quitting 15 years ago. He lives at home with his . No illicit drug use or alcohol use. There are 3 adult children that are nearby that help at home. 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 No international travel. No current animal exposures. Past Drug Use History: None Reported - Past Family History Father Family Medical History: Cancer Additional Family Medical History / Comment(s): Colon CA, at 74. Mother Family Medical History: No Reported History, CVA/TIA Additional Family Medical History / Comment(s): Mother of a CVA at the age of 83yrs. Medications and Allergies Home Medications Medication Instructions Recorded Confirmed Type Hydrocortisone [Cortef] 10 mg PO DAILY@1400 07/27/17 12/01/18 History Hydrocortisone [Cortef] 20 mg PO QAM 07/27/17 12/01/18 History Vit C/E/Zn/Coppr/Lutein/Zeaxan 1 cap PO BID 03/18/18 12/01/18 History [Preservision Areds 2 Softgel] L.acidoph,Paracasei, B.lactis 1 cap PO DAILY 04/17/18 12/01/18 History [Probiotic] Levothyroxine Sodium [Synthroid] 100 mcg PO DAILY 05/18/18 12/01/18 History Cystex Cranberry Liquid 15 ml PO BID 09/12/18 12/01/18 History Allergies Allergy/AdvReac Type Severity Reaction Status Date / Time No Known Allergies Allergy Verified 12/01/18 20:10 Surgical - Exam Vital Signs Temp 102.9 F H 12/01/18 19:30 - General well developed, well nourished, no distress - Respiratory normal respiratory effort - Abdomen Abdomen: soft, non tender, no guarding, no rigid, no rebound - Genitourinary normal penis with no external lesions, testicles non-tender - Psychiatric oriented to time, oriented to person, oriented to place, speech is normal, memory intact Results - Labs 12/03/18 07:11 12/03/18 07:11 Abnormal Lab Results - Last 24 Hours (Table) 12/02/18 12/03/18 12/03/18 Range/Units 18:38 07:11 07:11 WBC 19.4 H (3.8-10.6) k/uL RBC 3.58 L (4.30-5.90) m/uL Hgb 11.4 L (13.0-17.5) gm/dL Hct 35.7 L (39.0-53.0) % Neutrophils # 18.1 H (1.3-7.7) k/uL Lymphocytes # 0.9 L (1.0-4.8) k/uL Chloride 108 H (98-107) mmol/L Carbon Dioxide 18 L (22-30) mmol/L BUN 25 H (9-20) mg/dL Glucose 148 H (74-99) mg/dL Ur Leukocyte Esterase Large H (Negative) Urine WBC 50 H (0-5) /hpf Urine WBC Clumps Few H (None) /hpf Microbiology - Last 24 Hours (Table) 12/01/18 21:01 Blood Culture - Preliminary Blood No Growth after 24 hours 12/01/18 21:20 Urine Culture - Preliminary Urine,Catheterized Diabetes panel 12/03/18 Range/Units 07:11 Sodium 138 (137-145) mmol/L Potassium 4.0 (3.5-5.1) mmol/L Chloride 108 H (98-107) mmol/L Carbon Dioxide 18 L (22-30) mmol/L BUN 25 H (9-20) mg/dL Creatinine 0.98 (0.66-1.25) mg/dL Glucose 148 H (74-99) mg/dL Calcium 9.3 (8.4-10.2) mg/dL Calcium panel 12/03/18 Range/Units 07:11 Calcium 9.3 (8.4-10.2) mg/dL Pituitary panel 12/03/18 Range/Units 07:11 Sodium 138 (137-145) mmol/L Potassium 4.0 (3.5-5.1) mmol/L Chloride 108 H (98-107) mmol/L Carbon Dioxide 18 L (22-30) mmol/L BUN 25 H (9-20) mg/dL Creatinine 0.98 (0.66-1.25) mg/dL Glucose 148 H (74-99) mg/dL Calcium 9.3 (8.4-10.2) mg/dL Adrenal panel 12/03/18 Range/Units 07:11 Sodium 138 (137-145) mmol/L Potassium 4.0 (3.5-5.1) mmol/L Chloride 108 H (98-107) mmol/L Carbon Dioxide 18 L (22-30) mmol/L BUN 25 H (9-20) mg/dL Creatinine 0.98 (0.66-1.25) mg/dL Glucose 148 H (74-99) mg/dL Calcium 9.3 (8.4-10.2) mg/dL Assessment and Plan (1) Urinary tract infection Current Visit: No Status: Acute Code(s): N39.0 - URINARY TRACT INFECTION, SITE NOT SPECIFIED SNOMED Code(s): 22086242 (2) Urinary retention Current Visit: No Status: Acute Code(s): R33.9 - RETENTION OF URINE, UNSPECIFIED SNOMED Code(s): 108220026 Plan: It will be my recommendation that Mr. Foreman continue to be treated with ceftriaxone, as he is feeling much better. A preliminary urine culture has shown gram-negative bacilli. Once the organism has been identified, it would be reasonable to discharge Mr. Foreman home on appropriate antibiotic therapy. He should continue to self catheterize at bedtime. Please notify me if I can be of any further assistance.
[2018-12-03] MEDS: AZITHROMYCIN 500 MG TAB PO SCH (21:00)
[2018-12-04 07:59] VITALS: BP 149/77; PULSE 83; RESP 17; TEMP 98.2
[2018-12-04] MEDS: IPRATROPIUM-ALBUTEROL 3 ML NEB INHALATION SCH ×2 (08:58→12:30)
[2018-12-04] MEDS: ENOXAPARIN 40 MG/0.4 ML SYRINGE SQ SCH (10:57)
[2018-12-04] MEDS: TAMSULOSIN 0.4 MG CAP.ER.24H PO SCH (10:58)
[2018-12-04] MEDS: amLODIPine 5 MG TAB PO SCH (10:58)
[2018-12-04] MEDS: VIT A,C & E-LUTEIN-MINERALS 1 EACH TAB PO SCH (10:58)
[2018-12-04] MEDS: LEVOTHYROXINE 100 MCG TAB PO SCH (10:58)
--- NOTE | 2018-12-05 10:35 | CDI ---
Documentation Clarification Form Date: 12/05/2018 10:20:49 AM From: Mariel Carvalho Phone: If you have a question , please contact Cecelia Mckeon Insurance Loss Assessor at [phone] between 8am and 5pm Admit Date: 12/01/2018 8:31:00 PM Patient Name: China Foreman Visit Number: [id number] Discharge Date: 12/04/2018 2:32:00 PM ATTENTION: The Clinical Documentation Specialists (CDI) and [facility] Coding Staff appreciate your assistance in clarifying documentation. Please respond to the clarification below the line at the bottom and electronically sign. The CDI & [facility] Coding staff will review the response and follow-up if needed. Please note: Queries are made part of the Legal Health Record. If you have any questions, please contact the author of this message via ITS. Dr. Atif Eisenberg Pneumonia was documented in H and P along with possible UTI. Urine cultures came back positive for E coli and sputum cultures negative. No cough and No shortness of breath. History/Risk Factors: History of recurrent UTI's, prostate CA urine retention, self cath, Vital signs: 102.9F 76 16 198/90 95% RA WBC/Left shift: 7.8 on admit to 19.4 X-ray: negative Antibiotics Ceftrioxone azithromycin In order to capture the severity of condition, please clarify if the condition signifies and you are treating for: Pneumonia confirmed & treated Pneumonia ruled out Pneumonia ruled out MTDD
--- NOTE | 2018-12-17 00:53 | P.PN ---
Subjective Progress Note Date: 12/03/18 Principal diagnosis: Acute urinary tract infection Urinary retention Patient is a 83-year-old male with a known history of prostate cancer status post radiation/urinary retention/self cath at 9 PM and midnight and voids during daytime hours/occasional incontinence of urine, frequent urinary tract infections, stable pituitary mass, hypothyroidism, bilateral macular degeneration, mild cognitive impairment and the other multiple medical problems was brought to the hospital due to fever and generalized weakness. Patient does have decreased appetite and weak. Patient was febrile on admission with T-max 102.5. Patient does have a history of urinary retention and multiple urinary tract infections. Patient does have cough without any sputum production. Denied any recent illnesses. Last hospitalization about 3 months ago. Chest x-ray showed there is mild pleural reaction at the left lung lateral base compared to old exam. Urinalysis showed large leukocyte esterase and WBC greater than 50. No leukocytosis. Patient is a poor historian 12/03/2018 Patient denied any complaints of chest pain or shortness of breath. No nausea vomiting or abdominal pain. Patient does have urinary retention and urology was consulted. Recommended outpatient follow-up with urology clinic. Urine culture showed gram-negative bacilli. Awaiting final culture report. Patient has been afebrile. Leukocytosis is likely due to IV steroids. Patient does not have any complaints of cough or sputum production. Ambulating well in the hallway. Patient will be continued on antibiotics in the form of ceftriaxone. Otherwise patient denied any other complaints. Wants to be discharged home today. Current medications reviewed. Objective - Vital Signs Vital signs: Vital Signs Temp 97.6 F 12/03/18 20:42 Pulse 88 12/03/18 20:42 Resp 19 12/03/18 20:42 BP 151/73 12/03/18 20:42 Pulse Ox 95 12/03/18 20:42 Intake & Output 12/03/18 12/03/18 12/04/18 06:59 18:59 06:59 Intake Total 50 240 Output Total 500 Balance -450 240 Intake: Intake, IV Titration 50 Amount cefTRIAXone 1 gm In 50 Sodium Chloride 0.9% 50 ml @ 100 mls/hr IVPB HS DEBORAH Rx#:[id number] Oral 240 Output: Urine 500 Other: Voiding Method Toilet Toilet Toilet Urinal Urinal Urinal Diaper Diaper Diaper Self-Catheterization Self-Catheterization Self-Catheterization # Voids 4 2 2 - Exam PHYSICAL EXAMINATION: Patient is lying in the bed comfortably, no acute distress, awake alert and oriented.. HEENT: Normocephalic. Neck is supple. Pupils reactive. Nostrils clear. Oral cavity is moist. Ears reveal no drainage. Neck reveals no JVD, carotid bruits, or thyromegaly. CHEST EXAMINATION: Trachea is central. Symmetrical expansion. Lung frey clear to auscultation and percussion. CARDIAC: Normal S1, S2 with no gallops. No murmurs ABDOMEN: Soft. Bowel sounds normal. No organomegaly. No abdominal bruits. Extremities: reveal no edema. No clubbing or cyanosis Neurologically awake, alert, oriented x3 with well-coordinated movements. No focal deficits noted Skin: No rash or skin lesions. Psychiatric: Coperative. Nonsuicidal Musculoskeletal: No joint swelling or deformity. Normal range of motion. - Labs CBC & Chem 7: 12/03/18 07:11 12/03/18 07:11 Labs: Abnormal Lab Results - Last 24 Hours (Table) 12/03/18 12/03/18 Range/Units 07:11 07:11 WBC 19.4 H (3.8-10.6) k/uL RBC 3.58 L (4.30-5.90) m/uL Hgb 11.4 L (13.0-17.5) gm/dL Hct 35.7 L (39.0-53.0) % Neutrophils # 18.1 H (1.3-7.7) k/uL Lymphocytes # 0.9 L (1.0-4.8) k/uL Chloride 108 H (98-107) mmol/L Carbon Dioxide 18 L (22-30) mmol/L BUN 25 H (9-20) mg/dL Glucose 148 H (74-99) mg/dL Microbiology - Last 24 Hours (Table) 12/01/18 21:20 Urine Culture - Preliminary Urine,Catheterized Gram Neg Bacilli 12/01/18 21:01 Blood Culture - Preliminary Blood No Growth after 24 hours Assessment and Plan Assessment: Fever likely secondary to urinary tract infection. Unlikely left lower lobe infiltrate/pneumonia urinary tract infection Right upper lobe nodules. Recommended outpatient follow-up with repeat imaging. History of prostate cancer and chronic urine retention Hypothyroidism Stable pituitary mass Bilateral macular degeneration Previous history of smoking DVT prophylaxis on Lovenox Plan: Patient will be contingent on gentle hydration. Continue with antibiotics in the form of ceftriaxone and azithromycin. Patient was also started on DuoNeb's and IV steroids. Continue with breathing treatments. No need for IV steroids at this time.. Follow-up final blood cultures and urine cultures. Continue w ith home medications and further recommendations based on the clinical course. Time with Patient: Greater than 30
--- NOTE | 2018-12-17 00:57 | P.DS ---
Providers Date of admission: 12/01/18 20:31 Expected date of discharge: 12/04/18 Attending physician: Kristina Gunn Consults: 12/02/18 06:55 Consult Physician Stat Consulting Provider: Enoc Downey Reason/Comments: retention Do you want consulting provider notified?: Yes Primary care physician: Vanessa Oneill [facility] Course: Discharge diagnosis Fever likely secondary to urinary tract infection. Unlikely left lower lobe infiltrate/pneumonia urinary tract infection Right upper lobe nodules. Recommended outpatient follow-up with repeat imaging. History of prostate cancer and chronic urine retention Hypothyroidism Stable pituitary mass Bilateral macular degeneration Previous history of smoking DVT prophylaxis on [facility] Patient is a 83-year-old male with a known history of prostate cancer status post radiation/urinary retention/self cath at 9 PM and midnight and voids during daytime hours/occasional incontinence of urine, frequent urinary tract infections, stable pituitary mass, hypothyroidism, bilateral macular degeneration, mild cognitive impairment and the other multiple medical problems was brought to the hospital due to fever and generalized weakness. Patient does have decreased appetite and weak. Patient was febrile on admission with T-max 102.5. Patient does have a history of urinary retention and multiple urinary tract infections. Patient does have cough without any sputum production. Denied any recent illnesses. Last hospitalization about 3 months ago. Chest x-ray showed there is mild pleural reaction at the left lung lateral base compared to old exam. Urinalysis showed large leukocyte esterase and WBC greater than 50. No leukocytosis. Patient is a poor historian 12/03/2018 Patient denied any complaints of chest pain or shortness of breath. No nausea vomiting or abdominal pain. Patient does have urinary retention and urology was consulted. Recommended outpatient follow-up with urology clinic. Urine culture showed gram-negative bacilli. Awaiting final culture report. Patient has been afebrile. Leukocytosis is likely due to IV steroids. Patient does not have any complaints of cough or sputum production. Ambulating well in the hallway. Patient will be continued on antibiotics in the form of ceftriaxone. Otherwise patient denied any other complaints. Wants to be discharged home today. 12/04/2018 Patient denied any new complaints today. Patient wants to be discharged home now. Patient has been afebrile. Patient does not want repeat lab workup. Final urine culture showed E. coli. Patient will be continued on oral antibiotics and recommends to follow up with urology clinic. Continue with straight catheterization as needed at home and the night. No other acute overnight issues. PHYSICAL EXAMINATION: Patient is lying in the bed comfortably, no acute distress, awake alert and oriented.. HEENT: Normocephalic. Neck is supple. Pupils reactive. Nostrils clear. Oral cavity is moist. Ears reveal no drainage. Neck reveals no JVD, carotid bruits, or thyromegaly. CHEST EXAMINATION: Trachea is central. Symmetrical expansion. Lung frey clear to auscultation and percussion. CARDIAC: Normal S1, S2 with no gallops. No murmurs ABDOMEN: Soft. Bowel sounds normal. No organomegaly. No abdominal bruits. Extremities: reveal no edema. No clubbing or cyanosis Neurologically awake, alert, oriented x3 with well-coordinated movements. No focal deficits noted Skin: No rash or skin lesions. Psychiatric: Coperative. Nonsuicidal Musculoskeletal: No joint swelling or deformity. Normal range of motion. Discharge physical examination was done and vitals reviewed. Patient Condition at Discharge: Good Plan - Discharge Summary New Discharge Prescriptions: Continue Hydrocortisone [Cortef] 10 mg PO DAILY@1200 Hydrocortisone [Cortef] 20 mg PO QAM Vit C/E/Zn/Coppr/Lutein/Zeaxan [Preservision Areds 2 Softgel] 1 cap PO BID L.acidoph,Paracasei, B.lactis [Probiotic] 1 cap PO DAILY Levothyroxine Sodium [Synthroid] 100 mcg PO DAILY Cystex Cranberry Liquid 15 ml PO BID No Action Levofloxacin [Levaquin] 500 mg PO Q24H #10 tab Discharge Medication List Hydrocortisone [Cortef] 10 mg PO DAILY@1200 07/27/17 [History] Hydrocortisone [Cortef] 20 mg PO QAM 07/27/17 [History] Vit C/E/Zn/Coppr/Lutein/Zeaxan [Preservision Areds 2 Softgel] 1 cap PO BID 03/18/18 [History] L.acidoph,Paracasei, B.lactis [Probiotic] 1 cap PO DAILY 04/17/18 [History] Levothyroxine Sodium [Synthroid] 100 mcg PO DAILY 05/18/18 [History] Cystex Cranberry Liquid 15 ml PO BID 09/12/18 [History] Levofloxacin [Levaquin] 500 mg PO Q24H #10 tab 12/16/18 [Rx] Follow up Appointment(s)/Referral(s): Vanessa Oneill MD [Primary Care Provider] - 12/09/18 11:00 am Patient Instructions/Handouts: Urinary Tract Infection in Men (DC), How to Catheterize Yourself (Man) (GEN) Discharge Disposition: HOME SELF-CARE
== END 2018-12-04 14:32 | disposition home or self-care (01) | DRG 690 ==
LOC: EC 19:27 → 4SSUR 20:31
PROVIDERS: ADMIT Hospitalist; ATTEND Hospitalist
DX: N39.0 Urinary tract infection, site not specified (principal); E23.6 Other disorders of pituitary gland; D64.9 Anemia, unspecified; B96.20 Unspecified Escherichia coli [E. coli] as the cause of diseases classified elsewhere; R33.9 Retention of urine, unspecified; E29.1 Testicular hypofunction; E03.9 Hypothyroidism, unspecified; H35.30 Unspecified macular degeneration; R32 Unspecified urinary incontinence; G31.84 Mild cognitive impairment of uncertain or unknown etiology; Z66 Do not resuscitate; D72.829 Elevated white blood cell count, unspecified; E66.9 Obesity, unspecified; T38.0X5A Adverse effect of glucocorticoids and synthetic analogues, initial encounter; Z68.31 Body mass index [BMI] 31.0-31.9, adult; Z79.890 Hormone replacement therapy; Z85.46 Personal history of malignant neoplasm of prostate; Z87.440 Personal history of urinary (tract) infections; Z87.891 Personal history of nicotine dependence; Z92.3 Personal history of irradiation; Z79.899 Other long term (current) drug therapy; Z80.0 Family history of malignant neoplasm of digestive organs; Z82.3 Family history of stroke
CPT/HCPCS: 36415; 71046; 80048; 80053; 81001; 83605; 83735; 84100; 84484; 85025; 85610; 85730; 87040; 87070; 87077; 87086; 87186; 87205; 87502; 93005; 94640; 94760; 96361; 96374; 96375; 99285

== ENCOUNTER 2018-12-14 13:12 | Emergency (ER) | payer MEDICARE, BC ==
[2018-12-14 13:17] VITALS: RESP 18
[2018-12-14] MEDS ORDERED: ACETAMINOPHEN TAB 500 MG TAB PO STA (13:51)
--- NOTE | 2018-12-14 14:00 | ED ---
General Adult HPI - General Chief complaint: Urogenital Stated complaint: UTI/Fever Time Seen by Provider: 12/14/18 13:15 Source: patient, EMS, RN notes reviewed Mode of arrival: EMS Limitations: no limitations - History of Present Illness Initial comments: This is an 83-year-old male who presents emergency Department with a low-grade fever and a cloudy urine. Patient self caths and states that the urine is been cloudy lately and has had a little bit of a fever and it usually means he has urinary tract infectious I came to the emergency department. Patient denies any abdominal pain. Patient denies any diarrhea. Patient denies any chest pain di fficulty breathing shortest breath. Patient has no other complaints. Patient denies any hematuria. - Related Data Home Medications Medication Instructions Recorded Confirmed Hydrocortisone [Cortef] 10 mg PO DAILY@1200 07/27/17 12/14/18 Hydrocortisone [Cortef] 20 mg PO QAM 07/27/17 12/14/18 Vit C/E/Zn/Coppr/Lutein/Zeaxan 1 cap PO BID 03/18/18 12/14/18 [Preservision Areds 2 Softgel] L.acidoph,Paracasei, B.lactis 1 cap PO DAILY 04/17/18 12/14/18 [Probiotic] Levothyroxine Sodium [Synthroid] 100 mcg PO DAILY 05/18/18 12/14/18 Cystex Cranberry Liquid 15 ml PO BID 09/12/18 12/14/18 Previous Rx's Medication Instructions Recorded Sulfamethox-Tmp 800-160Mg [Bactrim 1 each PO Q12HR #20 tab 12/14/18 DS 800-160 mg] Allergies Allergy/AdvReac Type Severity Reaction Status Date / Time No Known Allergies Allergy Verified 12/14/18 13:28 Review of Systems ROS Statement: Those systems with pertinent positive or pertinent negative responses have been documented in the HPI. ROS Other: All systems not noted in ROS Statement are negative. Past Medical History Past Medical History: Cancer, Eye Disorder, Thyroid Disorder Additional Past Medical History / Comment(s): Prostate CA with radiation/urinary retention/self caths at 9pm and midnight and voids during daytime hours/ occasional incontinence of urine, frequent UTIs and has confusion with UTIs, stable pituitary mass, hyponatremia, chronic anemia, bilateral macular degeneration, hypothyroidism, pt's legs are cold all the time. History of Any Multi-Drug Resistant Organisms: Other MDRO Past Surgical History: Adenoidectomy, Tonsillectomy Additional Past Surgical History / Comment(s): EGD/colonoscopy. Past Anesthesia/Blood Transfusion Reactions: No Reported Reaction Past Psychological History: No Psychological Hx Reported Smoking Status: Former smoker Past Alcohol Use History: None Reported Past Drug Use History: None Reported - Past Family History Father Family Medical History: Cancer Additional Family Medical History / Comment(s): Colon CA, at 74. Mother Family Medical History: No Reported History, CVA/TIA Additional Family Medical History / Comment(s): Mother of a CVA at the age of 83yrs. General Exam - General Exam Comments Initial Comments: GENERAL: Patient is well-developed and well-nourished. Patient is nontoxic and well- hydrated and is in no acute distress. ENT: Neck is soft and supple. No significant lymphadenopathy is noted. Oropharynx is clear. Moist mucous membranes. Neck has full range of motion without eliciting any pain. EYES: The sclera were anicteric and conjunctiva were pink and moist. Extraocular movements were intact and pupils were equal round and reactive to light. Eyelids were unremarkable. PULMONARY: Unlabored respirations. Good breath sounds bilaterally. No audible rales rhonchi or wheezing was noted. CARDIOVASCULAR: There is a regular rate and rhythm without any murmurs gallops or rubs. ABDOMEN: Soft and nontender with normal bowel sounds. SKIN: Skin is clear with no lesions or rashes and otherwise unremarkable. NEUROLOGIC: Patient is alert and oriented x3. Cranial nerves II through XII are grossly intact. Motor and sensory are also intact. Normal speech, volume and content. Symmetrical smile. MUSCULOSKELETAL: Normal extremities with adequate strength and full range of motion. LYMPHATICS: No significant lymphadenopathy is noted PSYCHIATRIC: Normal psychiatric evaluation. Limitations: no limitations Course Vital Signs 12/14/18 12/14/18 13:14 15:09 Temperature 100 F H 99 F Pulse Rate 59 L 58 L Respiratory 18 18 Rate Blood Pressure 136/79 121/64 O2 Sat by Pulse 95 95 Oximetry Medical Decision Making - Medical Decision Making Patient received a gram of Rocephin emergency department. Patient was comfortable with going home and take an oral antibiotics. Patient states this is occurred multiple times in the past and usually oral antibiotics work fine. - Lab Data Result diagrams: 12/14/18 14:11 12/14/18 14:29 Lab Results 12/14/18 12/14/18 12/14/18 Range/Units 14:11 14:11 14:25 WBC 10.9 H (3.8-10.6) k/uL RBC 3.57 L (4.30-5.90) m/uL Hgb 11.7 L (13.0-17.5) gm/dL Hct 36.4 L (39.0-53.0) % MCV 102.0 H (80.0-100.0) fL MCH 32.7 (25.0-35.0) pg MCHC 32.1 (31.0-37.0) g/dL RDW 13.8 (11.5-15.5) % Plt Count 137 L (150-450) k/uL Neutrophils % 81 % Lymphocytes % 11 % Monocytes % 5 % Eosinophils % 1 % Basophils % 0 % Neutrophils # 8.9 H (1.3-7.7) k/uL Lymphocytes # 1.2 (1.0-4.8) k/uL Monocytes # 0.6 (0-1.0) k/uL Eosinophils # 0.1 (0-0.7) k/uL Basophils # 0.0 (0-0.2) k/uL Macrocytosis Slight Sodium (137-145) mmol/L Potassium (3.5-5.1) mmol/L Chloride (98-107) mmol/L Carbon Dioxide (22-30) mmol/L Anion Gap mmol/L BUN (9-20) mg/dL Creatinine (0.66-1.25) mg/dL Est GFR (CKD-EPI)AfAm (>60 ml/min/1.73 sqM) Est GFR (CKD-EPI)NonAf (>60 ml/min/1.73 sqM) Glucose (74-99) mg/dL Plasma Lactic Acid [place] 0.8 (0.7-2.0) mmol/L Calcium (8.4-10.2) mg/dL Total Bilirubin (0.2-1.3) mg/dL AST (17-59) U/L ALT (21-72) U/L Alkaline Phosphatase (38-126) U/L Total Protein (6.3-8.2) g/dL Albumin (3.5-5.0) g/dL Urine Color Light Yellow Urine Appearance Cloudy (Clear) Urine pH 6.5 (5.0-8.0) Ur Specific [place] 1.007 (1.001-1.035) Urine Protein Negative (Negative) Urine Glucose (UA) Negative (Negative) Urine Ketones Negative (Negative) Urine Blood Trace H (Negative) Urine Nitrite Negative (Negative) Urine Bilirubin Negative (Negative) Urine Urobilinogen <2.0 (<2.0) mg/dL Ur Leukocyte Esterase Large H (Negative) Urine RBC 4 (0-5) /hpf Urine WBC 62 H (0-5) /hpf Urine WBC Clumps Many H (None) /hpf Ur Squamous Epith Cells 1 (0-4) /hpf Urine Bacteria Occasional H (None) /hpf 12/14/18 Range/Units 14:29 WBC (3.8-10.6) k/uL RBC (4.30-5.90) m/uL Hgb (13.0-17.5) gm/dL Hct (39.0-53.0) % MCV (80.0-100.0) fL MCH (25.0-35.0) pg MCHC (31.0-37.0) g/dL RDW (11.5-15.5) % Plt Count (150-450) k/uL Neutrophils % % Lymphocytes % % Monocytes % % Eosinophils % % Basophils % % Neutrophils # (1.3-7.7) k/uL Lymphocytes # (1.0-4.8) k/uL Monocytes # (0-1.0) k/uL Eosinophils # (0-0.7) k/uL Basophils # (0-0.2) k/uL Macrocytosis Sodium 134 L (137-145) mmol/L Potassium 4.4 (3.5-5.1) mmol/L Chloride 102 (98-107) mmol/L Carbon Dioxide 27 (22-30) mmol/L Anion Gap 5 mmol/L BUN 19 (9-20) mg/dL Creatinine 0.90 (0.66-1.25) mg/dL Est GFR (CKD-EPI)AfAm 90 (>60 ml/min/1.73 sqM) Est GFR (CKD-EPI)NonAf 78 (>60 ml/min/1.73 sqM) Glucose 91 (74-99) mg/dL Plasma Lactic Acid [place] (0.7-2.0) mmol/L Calcium 8.5 (8.4-10.2) mg/dL Total Bilirubin 0.7 (0.2-1.3) mg/dL AST 22 (17-59) U/L ALT 43 (21-72) U/L Alkaline Phosphatase 55 (38-126) U/L Total Protein 6.2 L (6.3-8.2) g/dL Albumin 3.4 L (3.5-5.0) g/dL Urine Color Urine Appearance (Clear) Urine pH (5.0-8.0) Ur Specific [place] (1.001-1.035) Urine Protein (Negative) Urine Glucose (UA) (Negative) Urine Ketones (Negative) Urine Blood (Negative) Urine Nitrite (Negative) Urine Bilirubin (Negative) Urine Urobilinogen (<2.0) mg/dL Ur Leukocyte Esterase (Negative) Urine RBC (0-5) /hpf Urine WBC (0-5) /hpf Urine WBC Clumps (None) /hpf Ur Squamous Epith Cells (0-4) /hpf Urine Bacteria (None) /hpf Disposition Clinical Impression: Urinary tract infection Disposition: HOME SELF-CARE Instructions (If sedation given, give patient instructions): Urinary Tract Infection in Men (ED) Prescriptions: Sulfamethox-Tmp 800-160Mg [Bactrim DS 800-160 mg] 1 each PO Q12HR #20 tab Is patient prescribed a controlled substance at d/c from ED?: No Referrals: None,Stated [Primary Care Provider] - 1-2 days
[2018-12-14 14:27] LABS: Basophils % (A) 0 %; Eosinophils # (A) 0.1 k/uL (0-0.7); Eosinophils % (A) 1 %; HCT 36.4 % (39.0-53.0); HGB 11.7 gm/dL (13.0-17.5); Lymphocytes # (A) 1.2 k/uL (1.0-4.8); Lymphocytes % (A) 11 %; MCH 32.7 pg (25.0-35.0); MCHC 32.1 g/dL (31.0-37.0); Macrocytosis Slight; Mean Platelet Volume 6.9; Monocytes # (A) 0.6 k/uL (0-1.0); Monocytes % (A) 5 %; Neutrophils # (A) 8.9 k/uL (1.3-7.7); Neutrophils % (A) 81 %; Platelet Count 137 k/uL (150-450); RBC 3.57 m/uL (4.30-5.90); RDW 13.8 % (11.5-15.5); WBC 10.9 k/uL (3.8-10.6)
[2018-12-14 14:44] LABS: Appearance,Urine Cloudy (Clear); Bacteria,Urine Occasional /hpf; Bilirubin,Urine Negative (Negative); Blood,Urine Trace (Negative); Color,Urine Light Yellow; Glucose,Urine (UA) Negative (Negative); Ketones,Urine Negative (Negative); Leukocyte Esterase,Urine Large (Negative); Nitrite,Urine Negative (Negative); PH, Urine 6.5 (5.0-8.0); Protein,Urine Negative (Negative); RBC,Urine 4 /hpf (0-5); Specific Gravity,Urine 1.007 (1.001-1.035); Squamous Epithelial Cell,Urine 1 /hpf (0-4); Urobilinogen,Urine <2.0 mg/dL (<2.0); WBC,Urine 62 /hpf (0-5)
[2018-12-14 14:48] LABS: Albumin 3.4 g/dL (3.5-5.0); Calcium 8.5 mg/dL (8.4-10.2); Potassium 4.4 mmol/L (3.5-5.1); Total Bilirubin 0.7 mg/dL (0.2-1.3); Total Protein 6.2 g/dL (6.3-8.2)
[2018-12-14] MEDS ORDERED: cefTRIAXone IN SWFI 1,000 MG/10 ML SYRINGE IVP STA (15:14)
[2018-12-14 15:48] VITALS: BP 139/77; PULSE 56; TEMP 98.7
== END 2018-12-14 15:46 | disposition home or self-care (01) ==
LOC: EC 13:12
DX: N39.0 Urinary tract infection, site not specified (principal); E03.9 Hypothyroidism, unspecified; Z87.891 Personal history of nicotine dependence; Z79.52 Long term (current) use of systemic steroids; Z79.890 Hormone replacement therapy; Z79.899 Other long term (current) drug therapy; Z85.46 Personal history of malignant neoplasm of prostate; Z92.3 Personal history of irradiation
CPT/HCPCS: 36415; 80053; 83605; 85025; 81001; 87040; 87086; 99283; 51701; 96374; J0696

== ENCOUNTER 2018-12-15 08:46 | Observation (INO) | payer MEDICARE, BC ==
[2018-12-15] MEDS ORDERED: ACETAMINOPHEN TAB 500 MG TAB PO STA (09:02)
--- NOTE | 2018-12-15 09:04 | ED ---
General Adult HPI - General Chief complaint: Urogenital Stated complaint: Fever Time Seen by Provider: 12/15/18 08:48 Source: patient, EMS Mode of arrival: EMS Limitations: no limitations - History of Present Illness Initial comments: Dictation was produced using [employer] dictation software. please excuse any grammatical, word or spelling errors. Chief Complaint: 83-year-old male with past medical history of there are disea se, prostate cancer and self-catheterization presents with increasing weakness, lethargy. History of Present Illness: 83-year-old male. He has past medical history of prostate disease. Patient's. Patient was seen here in emergency department yesterday for low-grade fevers and lethargy. He was reevaluated found to have urinary tract infection. Patient otherwise appeared well yesterday. He was discharged home with prescription for antibiotics. Patient was also given Rocephin prior to discharge. Patient is given prescription told to follow-up with primary care physician. Patient has no other complaints at this time. Denies sore throat, cough, nausea vomiting or diarrhea. Patient denies any rashes. Denies any pain complaints. Denies any CVA tenderness or testicular pain. The ROS documented in this emergency department record has been reviewed and confirmed by me. Those systems with pertinent positive or negative responses have been documented in the HPI. All other systems are other negative and/or noncontributory. PHYSICAL EXAM: General Impression: Alert and oriented x3, not in acute distress HEENT: Normocephalic atraumatic, extra-ocular movements intact, pupils equal and reactive to light bilaterally, mucous membranes moist. Cardiovascular: Heart regular rate and rhythm, S1&S2 audible, no murmurs, rubs or gallops Chest: Lungs clear to auscultation bilaterally, no rhonchi, no wheeze, no rales Abdomen: Bowel sounds present, abdomen soft, non-tender, non-distended, no organomegaly Musculoskeletal: Pulses present and equal in all extremities, no peripheral cory a, no CVA tenderness Motor: no focal deficits noted Neurological: CN II-XII grossly intact, no focal motor or sensory deficits noted Skin: Intact with no visualized rashes Psych: Normal affect and mood ED course: 83-year-old male presents with constitutional symptoms. He was seen here yesterday for UTI. She presents here today for worsening symptoms of weakness and fever. Vital signs upon arrival shows temperature 102.5. Rest vital signs within except limits. Physical examination is grossly benign. Repeat labs were obtained. Clinical presentation suspicious for UTI however now with possible early sepsis. Patient given Rocephin.Laboratory evaluation obtained. CBC is grossly unremarkable. No leukocytosis. Mild thrombocytopenia. Slight elevation to creatinine. Compressive metabolic panel is unremarkable. Urinalysis shows cloudy urine with greater than 182 white blood cells. Influenza test is negative. Chest x-ray shows no acute processes. She and Tylenol and ceftriaxone. Patient blood pressure slightly decreased to 92/64. Patient given intravenous fluids. Patient be admitted for sepsis. Patient understandable and agreeable to disposition. EKG interpretation: Ventricular rate 86, sinus rhythm,. Interval 176, QS 140, QTc 495, a bundle branch block. No NH prolongation, no QTC prolongation, no ST or T-wave changes noted. EKG compared to 12/01/2018 showing no changes. Overall, this EKG is unremarkable - Related Data Home Medications Medication Instructions Recorded Confirmed Hydrocortisone [Cortef] 10 mg PO DAILY@1200 07/27/17 12/15/18 Hydrocortisone [Cortef] 20 mg PO QAM 07/27/17 12/15/18 Vit C/E/Zn/Coppr/Lutein/Zeaxan 1 cap PO BID 03/18/18 12/15/18 [Preservision Areds 2 Softgel] L.acidoph,Paracasei, B.lactis 1 cap PO DAILY 04/17/18 12/15/18 [Probiotic] Levothyroxine Sodium [Synthroid] 100 mcg PO DAILY 05/18/18 12/15/18 Cystex Cranberry Liquid 15 ml PO BID 09/12/18 12/15/18 Previous Rx's Medication Instructions Recorded Sulfamethox-Tmp 800-160Mg [Bactrim 1 each PO Q12HR #20 tab 12/14/18 DS 800-160 mg] Allergies Allergy/AdvReac Type Severity Reaction Status Date / Time No Known Allergies Allergy Verified 12/15/18 09:34 Review of Systems ROS Statement: Those systems with pertinent positive or pertinent negative responses have been documented in the HPI. ROS Other: All systems not noted in ROS Statement are negative. Past Medical History Past Medical History: Cancer, Eye Disorder, Thyroid Disorder Additional Past Medical History / Comment(s): Prostate CA with radiation/urinary retention/self caths at 9pm and midnight and voids during daytime hours/ occasional incontinence of urine, frequent UTIs and has confusion with UTIs, stable pituitary mass, hyponatremia, chronic anemia, bilateral macular degeneration, hypothyroidism, pt's legs are cold all the time. History of Any Multi-Drug Resistant Organisms: Other MDRO Past Surgical History: Adenoidectomy, Tonsillectomy Additional Past Surgical History / Comment(s): EGD/colonoscopy. Past Anesthesia/Blood Transfusion Reactions: No Reported Reaction Past Psychological History: No Psychological Hx Reported Smoking Status: Former smoker Past Alcohol Use History: None Reported Past Drug Use History: None Reported - Past Family History Father Family Medical History: Cancer Additional Family Medical History / Comment(s): Colon CA, at 74. Mother Family Medical History: No Reported History, CVA/TIA Additional Family Medical History / Comment(s): Mother of a CVA at the age of 83yrs. General Exam Limitations: no limitations Course Vital Signs 12/15/18 12/15/18 12/15/18 08:47 09:00 09:30 Temperature 102.5 F H Pulse Rate 75 65 66 Respiratory 18 9 L 19 Rate Blood Pressure 117/72 100/83 92/64 O2 Sat by Pulse 94 L 97 97 Oximetry Medical Decision Making - Lab Data Result diagrams: 12/15/18 08:53 12/15/18 08:53 Lab Results 12/15/18 12/15/18 12/15/18 Range/Units 08:53 08:53 08:53 WBC 9.8 (3.8-10.6) k/uL RBC 3.47 L (4.30-5.90) m/uL Hgb 11.4 L (13.0-17.5) gm/dL Hct 33.9 L (39.0-53.0) % MCV 97.7 (80.0-100.0) fL MCH 32.8 (25.0-35.0) pg MCHC 33.6 (31.0-37.0) g/dL RDW 13.9 (11.5-15.5) % Plt Count 140 L (150-450) k/uL Neutrophils % 79 % Lymphocytes % 13 % Monocytes % 5 % Eosinophils % 1 % Basophils % 0 % Neutrophils # 7.8 H (1.3-7.7) k/uL Lymphocytes # 1.3 (1.0-4.8) k/uL Monocytes # 0.5 (0-1.0) k/uL Eosinophils # 0.1 (0-0.7) k/uL Basophils # 0.0 (0-0.2) k/uL Sodium 134 L (137-145) mmol/L Potassium 4.2 (3.5-5.1) mmol/L Chloride 101 (98-107) mmol/L Carbon Dioxide 26 (22-30) mmol/L Anion Gap 7 mmol/L BUN 19 (9-20) mg/dL Creatinine 1.26 H (0.66-1.25) mg/dL Est GFR (CKD-EPI)AfAm 60 (>60 ml/min/1.73 sqM) Est GFR (CKD-EPI)NonAf 52 (>60 ml/min/1.73 sqM) Glucose 86 (74-99) mg/dL Plasma Lactic Acid [place] (0.7-2.0) mmol/L Calcium 8.2 L (8.4-10.2) mg/dL Magnesium 1.8 (1.6-2.3) mg/dL Total Bilirubin 0.5 (0.2-1.3) mg/dL AST 25 (17-59) U/L ALT 35 (21-72) U/L Alkaline Phosphatase 64 (38-126) U/L Total Protein 6.3 (6.3-8.2) g/dL Albumin 3.5 (3.5-5.0) g/dL Urine Color Yellow Urine Appearance Cloudy (Clear) Urine pH 6.5 (5.0-8.0) Ur Specific [place] 1.012 (1.001-1.035) Urine Protein Trace H (Negative) Urine Glucose (UA) Negative (Negative) Urine Ketones Negative (Negative) Urine Blood Trace H (Negative) Urine Nitrite Negative (Negative) Urine Bilirubin Negative (Negative) Urine Urobilinogen <2.0 (<2.0) mg/dL Ur Leukocyte Esterase Large H (Negative) Urine RBC 23 H (0-5) /hpf Urine WBC >182 H (0-5) /hpf Ur Squamous Epith Cells <1 (0-4) /hpf Urine Bacteria Rare H (None) /hpf Urine Mucus Rare H (None) /hpf Influenza Type A RNA (Not Detectd) Influenza Type B (PCR) (Not Detectd) 12/15/18 12/15/18 Range/Units 08:53 09:03 WBC (3.8-10.6) k/uL RBC (4.30-5.90) m/uL Hgb (13.0-17.5) gm/dL Hct (39.0-53.0) % MCV (80.0-100.0) fL MCH (25.0-35.0) pg MCHC (31.0-37.0) g/dL RDW (11.5-15.5) % Plt Count (150-450) k/uL Neutrophils % % Lymphocytes % % Monocytes % % Eosinophils % % Basophils % % Neutrophils # (1.3-7.7) k/uL Lymphocytes # (1.0-4.8) k/uL Monocytes # (0-1.0) k/uL Eosinophils # (0-0.7) k/uL Basophils # (0-0.2) k/uL Sodium (137-145) mmol/L Potassium (3.5-5.1) mmol/L Chloride (98-107) mmol/L Carbon Dioxide (22-30) mmol/L Anion Gap mmol/L BUN (9-20) mg/dL Creatinine (0.66-1.25) mg/dL Est GFR (CKD-EPI)AfAm (>60 ml/min/1.73 sqM) Est GFR (CKD-EPI)NonAf (>60 ml/min/1.73 sqM) Glucose (74-99) mg/dL Plasma Lactic Acid [place] 0.8 (0.7-2.0) mmol/L Calcium (8.4-10.2) mg/dL Magnesium (1.6-2.3) mg/dL Total Bilirubin (0.2-1.3) mg/dL AST (17-59) U/L ALT (21-72) U/L Alkaline Phosphatase (38-126) U/L Total Protein (6.3-8.2) g/dL Albumin (3.5-5.0) g/dL Urine Color Urine Appearance (Clear) Urine pH (5.0-8.0) Ur Specific [place] (1.001-1.035) Urine Protein (Negative) Urine Glucose (UA) (Negative) Urine Ketones (Negative) Urine Blood (Negative) Urine Nitrite (Negative) Urine Bilirubin (Negative) Urine Urobilinogen (<2.0) mg/dL Ur Leukocyte Esterase (Negative) Urine RBC (0-5) /hpf Urine WBC (0-5) /hpf Ur Squamous Epith Cells (0-4) /hpf Urine Bacteria (None) /hpf Urine Mucus (None) /hpf Influenza Type A RNA Not Detected (Not Detectd) Influenza Type B (PCR) Not Detected (Not Detectd) Disposition Clinical Impression: Sepsis secondary to UTI Disposition: ADMITTED IP TO THIS HOSP Condition: Fair Referrals: None,Stated [Primary Care Provider] - 1-2 days Decision Time: 10:27
[2018-12-15] MEDS ORDERED: SODIUM CHLORIDE 0.9% 1,000 ML IV STA (09:05)
[2018-12-15 09:16] LABS: Basophils % (A) 0 %; Eosinophils # (A) 0.1 k/uL (0-0.7); Eosinophils % (A) 1 %; HCT 33.9 % (39.0-53.0); HGB 11.4 gm/dL (13.0-17.5); Lymphocytes # (A) 1.3 k/uL (1.0-4.8); Lymphocytes % (A) 13 %; MCH 32.8 pg (25.0-35.0); MCHC 33.6 g/dL (31.0-37.0); MCV 97.7 fL (80.0-100.0); Mean Platelet Volume 6.2; Monocytes # (A) 0.5 k/uL (0-1.0); Monocytes % (A) 5 %; Neutrophils # (A) 7.8 k/uL (1.3-7.7); Neutrophils % (A) 79 %; Platelet Count 140 k/uL (150-450); RBC 3.47 m/uL (4.30-5.90); RDW 13.9 % (11.5-15.5); WBC 9.8 k/uL (3.8-10.6)
[2018-12-15 09:25] LABS: Albumin 3.5 g/dL (3.5-5.0); Appearance,Urine Cloudy (Clear); Bacteria,Urine Rare /hpf; Bilirubin,Urine Negative (Negative); Blood,Urine Trace (Negative); Calcium 8.2 mg/dL (8.4-10.2); Color,Urine Yellow; Glucose,Urine (UA) Negative (Negative); Ketones,Urine Negative (Negative); Leukocyte Esterase,Urine Large (Negative); Magnesium 1.8 mg/dL (1.6-2.3); Mucus,Urine Rare /hpf; Nitrite,Urine Negative (Negative); PH, Urine 6.5 (5.0-8.0); Potassium 4.2 mmol/L (3.5-5.1); Protein,Urine Trace (Negative); RBC,Urine 23 /hpf (0-5); Specific Gravity,Urine 1.012 (1.001-1.035); Squamous Epithelial Cell,Urine <1 /hpf (0-4); Total Bilirubin 0.5 mg/dL (0.2-1.3); Total Protein 6.3 g/dL (6.3-8.2); Urobilinogen,Urine <2.0 mg/dL (<2.0); WBC,Urine >182 /hpf (0-5)
--- NOTE | 2018-12-15 10:07 | XR ---
EXAMINATION TYPE: XR chest 2V DATE OF EXAM: 12/15/2018 HISTORY: Pain. REFERENCE: Previous study dated 12/02/2018. FINDINGS: The heart is mildly prominent. There is right upper lobe nodularity which is chronic. Pleur al spaces are clear. IMPRESSION: 1. MILD CARDIOMEGALY. 2. RIGHT UPPER LOBE NODULARITY. A CT SCAN OF THE CHEST WOULD BE SUGGESTED ON A NONEMERGENT BASIS.
[2018-12-15] MEDS ORDERED: NALOXONE 0.4 MG/ML 1 ML VIAL IV PRN (11:33)
[2018-12-15] MEDS ORDERED: ONDANSETRON 4 MG/2 ML VIAL IVP PRN (11:33)
[2018-12-15] MEDS ORDERED: ACETAMINOPHEN TAB 325 MG TAB PO PRN (11:33)
[2018-12-15] MEDS: SODIUM CHLORIDE 0.9% 1,000 ML IV SCH (11:55)
[2018-12-15 16:41] LABS: Glucose,Whole Blood 97 mg/dL (75-99)
[2018-12-15] MEDS ORDERED: LEVOFLOXACIN 500 MG TAB PO SCH (17:00)
--- NOTE | 2018-12-15 17:28 | HP ---
HISTORY AND PHYSICAL CHIEF COMPLAINT: Weakness. HISTORY OF PRESENT ILLNESS: This is the first known admission for this 83-year-old white male. Lives with his and began to notice that he was feeling weak. He has had problems with urinary tract infections in the past and had to be admitted. He has otherwise apparently been healthy. He has prostate cancer according to the emergency room note and self caths. In the emergency room he had temperature of 102.5. REVIEW OF SYSTEMS: He has had no CVAs, problems with vision or hearing, chest pain, cough, sputum production, heart disease, hypertension, palpitations, murmurs, rheumatic fever, orthopnea, PND, abdominal pain, nausea, vomiting, hematemesis, melena, hematochezia, jaundice, hepatitis, cirrhosis, hematuria, frequency, urgency, dysuria, etc. He has had no flank pain. He is not diabetic. Past medical history, family history and personal and social histories were otherwise unremarkable. He states he is not allergic to any medication. He has never had any surgery. He does not smoke. He does not have hypertension, diabetes, heart disease, etc. PHYSICAL EXAMINATION: Blood pressure 117/70 with a pulse 75, respirations of 18 and temperature of 102.5. In general, he appeared to be slightly overweight and in no acute distress. Skin color is normal. Skin is warm and dry. Lymph nodes not enlarged. Head, ears, eyes, nose, mouth, and throat were normal. Neck veins not distended. Thyroid is not enlarged. Chest is clear. Cardiac exam is normal. Abdomen is soft and nontender. Extremities are normal. Neurologically is intact. He is admitted to the hospital with diagnoses: 1. Urinary tract infection. 2. Obstructive uropathy. PLAN: 1. Bed rest. 2. IV fluids. 3. IV antibiotics. MMODL / IJN: [id number] /
[2018-12-16] MEDS ORDERED: LEVOTHYROXINE 100 MCG TAB PO SCH (06:30)
[2018-12-16] MEDS ORDERED: PANTOPRAZOLE 40 MG/10 ML VIAL IV SCH (09:00)
[2018-12-16] MEDS ORDERED: HYDROCORTISONE 20 MG TAB PO SCH (09:00)
[2018-12-16] MEDS: SODIUM CHLORIDE 0.9% 1,000 ML IV SCH (11:40)
[2018-12-16] MEDS ORDERED: HYDROCORTISONE 10 MG TAB PO SCH (12:00)
[2018-12-16 12:20] VITALS: BP 129/60; PULSE 60; RESP 18; TEMP 97.7
--- NOTE | 2018-12-16 18:58 | DS ---
DISCHARGE SUMMARY CHIEF COMPLAINT: Weakness. HISTORY OF PRESENT ILLNESS AND PHYSICAL EXAM: Details of this man's history and physical can be found in the initial workup. LABORATORY STUDIES: While he was in the hospital, he had laboratory studies, details of which can be found in the laboratory section of his chart. COURSE IN HOSPITAL: After admission, he was placed on bedrest, started on intravenous fluids and antibiotics. By the next day, he was feeling well and felt that he could be discharged. He will go home on usual activity, diet, and medication along with antibiotic and he will follow up in the office or with his own physician. FINAL DIAGNOSES: 1. Generalized weakness to secondary urinary tract infection. 2. Urinary tract infection. 3. Neurogenic bladder. 4. Adrenal insufficiency. 5. Hypothyroidism. OPERATIONS: None. CONSULTATIONS: None. He is improved. JOEL / SHRAVANN: [id number] /
== END 2018-12-16 14:11 | disposition home health service (06) ==
LOC: EC 08:46 → 3SCARD 11:33
PROVIDERS: ADMIT Family Medicine; ATTEND Family Medicine
DX: N39.0 Urinary tract infection, site not specified (principal); C61 Malignant neoplasm of prostate; R79.89 Other specified abnormal findings of blood chemistry; R53.1 Weakness; N13.9 Obstructive and reflux uropathy, unspecified; D69.6 Thrombocytopenia, unspecified; R33.9 Retention of urine, unspecified; N31.9 Neuromuscular dysfunction of bladder, unspecified; E27.40 Unspecified adrenocortical insufficiency; E03.9 Hypothyroidism, unspecified; H35.30 Unspecified macular degeneration; E87.1 Hypo-osmolality and hyponatremia; D64.9 Anemia, unspecified; Z79.890 Hormone replacement therapy; Z79.899 Other long term (current) drug therapy; Z87.891 Personal history of nicotine dependence; Z16.24 Resistance to multiple antibiotics; Z87.440 Personal history of urinary (tract) infections; Z92.3 Personal history of irradiation; Z80.0 Family history of malignant neoplasm of digestive organs; Z82.3 Family history of stroke
CPT/HCPCS: 96375; 96365; 96366; 99285; 36415; 93005; 80053; 83605; 83735; 85025; 81001; 87040; 87086; 87502; 71046; G0378 ×2; J0696; C9113

== ENCOUNTER 2019-01-19 09:09 | Inpatient (IN) | payer MEDICARE, BC ==
[2019-01-19] MEDS ORDERED: SODIUM CHLORIDE 0.9% 1,000 ML IV STA ×2 (09:23→12:07)
--- NOTE | 2019-01-19 09:33 | ED ---
Weakness HPI - General Stated complaint: WEAKNESS Time Seen by Provider: 01/19/19 09:09 Source: patient, EMS, RN notes reviewed, old records reviewed Mode of arrival: EMS - History of Present Illness Initial comments: This is a 83-year-old male with a history of frequent urinary tract infections he does self cath every day who presents today with complaints of generalized weakness decreased energy he had a temperature 103 orally. He is brought in by EMS for the same the cough no pain no other symptoms reported. No nausea vomiting diarrhea MD Complaint: generalized weakness - Related Data Home Medications Medication Instructions Recorded Confirmed Hydrocortisone [Cortef] 10 mg PO DAILY@1200 07/27/17 01/19/19 Hydrocortisone [Cortef] 20 mg PO QAM 07/27/17 01/19/19 Vit C/E/Zn/Coppr/Lutein/Zeaxan 1 cap PO BID 03/18/18 01/19/19 [Preservision Areds 2 Softgel] L.acidoph,Paracasei, B.lactis 1 cap PO DAILY 04/17/18 01/19/19 [Probiotic] Levothyroxine Sodium [Synthroid] 100 mcg PO DAILY 05/18/18 01/19/19 Allergies Allergy/AdvReac Type Severity Reaction Status Date / Time No Known Allergies Allergy Verified 01/19/19 09:20 Review of Systems ROS Statement: Those systems with pertinent positive or pertinent negative responses have been documented in the HPI. ROS Other: All systems not noted in ROS Statement are negative. Past Medical History Past Medical History: Cancer, Eye Disorder, Thyroid Disorder Additional Past Medical History / Comment(s): Prostate CA with radiation/urinary retention/self caths at 9pm and midnight and voids during daytime hours/ occasional incontinence of urine, frequent UTIs and has confusion with UTIs, stable pituitary mass, hyponatremia, chronic anemia, bilateral macular degeneration, hypothyroidism, pt's legs are cold all the time. History of Any Multi-Drug Resistant Organisms: Other MDRO Past Surgical History: Adenoidectomy, Tonsillectomy Additional Past Surgical History / Comment(s): EGD/colonoscopy. Past Anesthesia/Blood Transfusion Reactions: No Reported Reaction Past Psychological History: No Psychological Hx Reported Additional Psychological History / Comment(s): and lives in the family home. 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 No international travel. No current animal exposures. Pt has a cane, walker and 3 wheeled electric scooter. He drives short distances. His spouse drives. 3 adult children live nearby and are helpful. Smoking Status: Former smoker Past Alcohol Use History: None Reported Additional Past Alcohol Use History / Comment(s): Patient was a smoker 3 packs per day and smoked for less than 15 years quitting 15 years ago. He lives at home with his . No illicit drug use or alcohol use. There are 3 adult children that are nearby that help at home. He is retired [employer] dealer. 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 No international travel. No current animal exposures. Past Drug Use History: None Reported - Past Family History Father Family Medical History: Cancer Additional Family Medical History / Comment(s): Colon CA, at 74. Mother Family Medical History: No Reported History, CVA/TIA Additional Family Medical History / Comment(s): Mother of a CVA at the age of 83yrs. General Exam - General Exam Comments Initial Comments: This is a well-developed well-nourished awake alert oriented 3 male General appearance: alert, in no apparent distress Head exam: Present: atraumatic, normocephalic, normal inspection Eye exam: Present: normal appearance, PERRL, EOMI. Absent: scleral icterus, conjunctival injection, periorbital swelling ENT exam: Present: mucous membranes dry Neck exam: Present: normal inspection, full ROM, other (No stridor JVD or bruits). Absent: tenderness, meningismus, lymphadenopathy Respiratory exam: Present: normal lung sounds bilaterally. Absent: respiratory distress, wheezes, rales, rhonchi, stridor Cardiovascular Exam: Present: regular rate, normal rhythm, normal heart sounds. Absent: systolic murmur, diastolic murmur, rubs, gallop, clicks GI/Abdominal exam: Present: soft, normal bowel sounds. Absent: distended, tenderness, guarding, rebound, rigid, bruit, pulsatile mass exam: Present: other (The patient's penis is retracted no tenderness palpation no drainage or discharge seen at this time. Patient is uncircumcised) Extremities exam: Present: normal inspection, full ROM, normal capillary refill. Absent: tenderness, pedal edema, joint swelling, calf tenderness Back exam: Present: normal inspection Neurological exam: Present: alert, oriented X3, CN II-XII intact Psychiatric exam: Present: normal affect, normal mood Skin exam: Present: warm, dry, intact, normal color. Absent: rash Course Vital Signs 01/19/19 01/19/19 01/19/19 09:33 09:36 10:00 Temperature 102.5 F H Pulse Rate 82 88 77 Respiratory 10 L 20 16 Rate Blood Pressure 91/43 111/45 O2 Sat by Pulse 93 L 95 98 Oximetry 01/19/19 01/19/19 01/19/19 10:30 11:00 11:30 Temperature Pulse Rate 79 78 74 Respiratory 16 16 20 Rate Blood Pressure 100/67 95/59 103/53 O2 Sat by Pulse 97 96 Oximetry 01/19/19 01/19/19 11:36 12:10 Temperature 99.3 F Pulse Rate 52 L Respiratory 18 Rate Blood Pressure 83/57 O2 Sat by Pulse 98 Oximetry - Reevaluation(s) Reevaluation #1: 01/19/19 12:35 I did discuss the findings with the patient family members patient was noted have evidence of hypotension though he was awake alert oriented 3 with no complaints of dizziness. He was given IV fluids and is seen respond. Reevaluation #2: 01/19/19 12:37 potline monitor: potline monitor and EKG the patient was hypotensive at this. No dysrhythmia noted no PACs or PVCs noted. 01/19/19 12:38 Heart rate was noted to be 82 on my evaluation EKG Findings - EKG Results: EKG: interpreted by TIARA, sinus rhythm (Sinus rhythm ventricular rate of 79. Interval 162 QRS duration 134 QT since QTC 392/449 left exodeviation right bundle-branch block pattern) Medical Decision Making - Medical Decision Making I did discuss the findings with the patient family members as well as with Dr. An. She'll be admitted for IV fluids IV antibiotics - Lab Data Result diagrams: 01/19/19 09:20 01/19/19 09:20 Lab Results 01/19/19 01/19/19 01/19/19 Range/Units 09:20 09:20 09:20 WBC 7.5 (3.8-10.6) k/uL RBC 3.77 L (4.30-5.90) m/uL Hgb 12.4 L (13.0-17.5) gm/dL Hct 37.2 L (39.0-53.0) % MCV 98.6 (80.0-100.0) fL MCH 32.9 (25.0-35.0) pg MCHC 33.4 (31.0-37.0) g/dL RDW 13.5 (11.5-15.5) % Plt Count 167 (150-450) k/uL Neutrophils % 72 % Lymphocytes % 18 % Monocytes % 6 % Eosinophils % 2 % Basophils % 0 % Neutrophils # 5.4 (1.3-7.7) k/uL Lymphocytes # 1.4 (1.0-4.8) k/uL Monocytes # 0.5 (0-1.0) k/uL Eosinophils # 0.2 (0-0.7) k/uL Basophils # 0.0 (0-0.2) k/uL Sodium 138 (137-145) mmol/L Potassium 4.1 (3.5-5.1) mmol/L Chloride 104 (98-107) mmol/L Carbon Dioxide 24 (22-30) mmol/L Anion Gap 10 mmol/L BUN 19 (9-20) mg/dL Creatinine 1.01 (0.66-1.25) mg/dL Est GFR (CKD-EPI)AfAm 78 (>60 ml/min/1.73 sqM) Est GFR (CKD-EPI)NonAf 68 (>60 ml/min/1.73 sqM) Glucose 96 (74-99) mg/dL Plasma Lactic Acid [place] (0.7-2.0) mmol/L Calcium 8.6 (8.4-10.2) mg/dL Magnesium 1.8 (1.6-2.3) mg/dL Total Bilirubin 0.6 (0.2-1.3) mg/dL AST 22 (17-59) U/L ALT 22 (21-72) U/L Alkaline Phosphatase 73 (38-126) U/L Total Creatine Kinase <20 L (55-170) U/L CK-MB (CK-2) <0.2 (0.0-2.4) ng/mL CK-MB (CK-2) Rel Index Troponin I <0.012 (0.000-0.034) ng/mL Total Protein 6.7 (6.3-8.2) g/dL Albumin 3.7 (3.5-5.0) g/dL Amylase 38 (30-110) U/L Lipase 83 (23-300) U/L Urine Color Urine Appearance (Clear) Urine pH (5.0-8.0) Ur Specific [place] (1.001-1.035) Urine Protein (Negative) Urine Glucose (UA) (Negative) Urine Ketones (Negative) Urine Blood (Negative) Urine Nitrite (Negative) Urine Bilirubin (Negative) Urine Urobilinogen (<2.0) mg/dL Ur Leukocyte Esterase (Negative) Urine RBC (0-5) /hpf Urine WBC (0-5) /hpf Urine WBC Clumps (None) /hpf Ur Squamous Epith Cells (0-4) /hpf Amorphous Sediment (None) /hpf Urine Bacteria (None) /hpf 01/19/19 01/19/19 Range/Units 09:20 09:20 WBC (3.8-10.6) k/uL RBC (4.30-5.90) m/uL Hgb (13.0-17.5) gm/dL Hct (39.0-53.0) % MCV (80.0-100.0) fL MCH (25.0-35.0) pg MCHC (31.0-37.0) g/dL RDW (11.5-15.5) % Plt Count (150-450) k/uL Neutrophils % % Lymphocytes % % Monocytes % % Eosinophils % % Basophils % % Neutrophils # (1.3-7.7) k/uL Lymphocytes # (1.0-4.8) k/uL Monocytes # (0-1.0) k/uL Eosinophils # (0-0.7) k/uL Basophils # (0-0.2) k/uL Sodium (137-145) mmol/L Potassium (3.5-5.1) mmol/L Chloride (98-107) mmol/L Carbon Dioxide (22-30) mmol/L Anion Gap mmol/L BUN (9-20) mg/dL Creatinine (0.66-1.25) mg/dL Est GFR (CKD-EPI)AfAm (>60 ml/min/1.73 sqM) Est GFR (CKD-EPI)NonAf (>60 ml/min/1.73 sqM) Glucose (74-99) mg/dL Plasma Lactic Acid [place] 1.1 (0.7-2.0) mmol/L Calcium (8.4-10.2) mg/dL Magnesium (1.6-2.3) mg/dL Total Bilirubin (0.2-1.3) mg/dL AST (17-59) U/L ALT (21-72) U/L Alkaline Phosphatase (38-126) U/L Total Creatine Kinase (55-170) U/L CK-MB (CK-2) (0.0-2.4) ng/mL CK-MB (CK-2) Rel Index Troponin I (0.000-0.034) ng/mL Total Protein (6.3-8.2) g/dL Albumin (3.5-5.0) g/dL Amylase (30-110) U/L Lipase (23-300) U/L Urine Color Light Yellow Urine Appearance Cloudy (Clear) Urine pH 5.5 (5.0-8.0) Ur Specific [place] 1.009 (1.001-1.035) Urine Protein 1+ H (Negative) Urine Glucose (UA) Negative (Negative) Urine Ketones Negative (Negative) Urine Blood Negative (Negative) Urine Nitrite Positive (Negative) Urine Bilirubin Negative (Negative) Urine Urobilinogen <2.0 (<2.0) mg/dL Ur Leukocyte Esterase Large H (Negative) Urine RBC 1 (0-5) /hpf Urine WBC 54 H (0-5) /hpf Urine WBC Clumps Moderate H (None) /hpf Ur Squamous Epith Cells 1 (0-4) /hpf Amorphous Sediment Occasional H (None) /hpf Urine Bacteria Occasional H (None) /hpf - Radiology Data Radiology results: report reviewed (I did review the imaging and report no acute findings.), image reviewed Disposition Clinical Impression: Urinary tract infection, Dehydration, Hypotensive episode Disposition: ADMITTED IP TO THIS HOSP Condition: Fair Referrals: None,Stated [Primary Care Provider] - 1-2 days
[2019-01-19] MEDS ORDERED: ACETAMINOPHEN TAB 325 MG TAB PO STA (09:51)
[2019-01-19 09:53] LABS: Basophils % (A) 0 %; Eosinophils # (A) 0.2 k/uL (0-0.7); Eosinophils % (A) 2 %; HCT 37.2 % (39.0-53.0); HGB 12.4 gm/dL (13.0-17.5); Lymphocytes # (A) 1.4 k/uL (1.0-4.8); Lymphocytes % (A) 18 %; MCH 32.9 pg (25.0-35.0); MCHC 33.4 g/dL (31.0-37.0); MCV 98.6 fL (80.0-100.0); Mean Platelet Volume 6.5; Monocytes # (A) 0.5 k/uL (0-1.0); Monocytes % (A) 6 %; Neutrophils # (A) 5.4 k/uL (1.3-7.7); Neutrophils % (A) 72 %; Platelet Count 167 k/uL (150-450); RBC 3.77 m/uL (4.30-5.90); RDW 13.5 % (11.5-15.5); WBC 7.5 k/uL (3.8-10.6)
[2019-01-19 10:01] LABS: Albumin 3.7 g/dL (3.5-5.0); Calcium 8.6 mg/dL (8.4-10.2); Magnesium 1.8 mg/dL (1.6-2.3); Potassium 4.1 mmol/L (3.5-5.1); Total Bilirubin 0.6 mg/dL (0.2-1.3); Total Protein 6.7 g/dL (6.3-8.2)
[2019-01-19 10:06] LABS: Amorphous Sediment,Urine Occasional /hpf; Appearance,Urine Cloudy (Clear); Bacteria,Urine Occasional /hpf; Bilirubin,Urine Negative (Negative); Blood,Urine Negative (Negative); Color,Urine Light Yellow; Glucose,Urine (UA) Negative (Negative); Ketones,Urine Negative (Negative); Leukocyte Esterase,Urine Large (Negative); Nitrite,Urine Positive (Negative); PH, Urine 5.5 (5.0-8.0); Protein,Urine 1+ (Negative); RBC,Urine 1 /hpf (0-5); Specific Gravity,Urine 1.009 (1.001-1.035); Squamous Epithelial Cell,Urine 1 /hpf (0-4); Urobilinogen,Urine <2.0 mg/dL (<2.0)
[2019-01-19] MEDS: SODIUM CHLORIDE 0.9% 1,000 ML IV STA ×2 (10:10→18:17)
[2019-01-19 10:14] LABS: Creatine Kinase <20 U/L (55-170)
[2019-01-19 10:27] LABS: Creatine Kinase MB <0.2 ng/mL (0.0-2.4); Troponin I <0.012 ng/mL (0.000-0.034)
--- NOTE | 2019-01-19 11:17 | XR ---
EXAMINATION TYPE: XR chest 2V DATE OF EXAM: 01/19/2019 HISTORY: cough. REFERENCE: Previous study dated 12/15/2018. FINDINGS: The heart is mildly enlarged. Nodularity in the right upper lobe persists. There is bluntin g of the left CP angle. I could not exclude a left effusion. There is some minimal airspace disease a t the left lung base.. IMPRESSION: 1. CARDIOMEGALY. 2. CHRONIC RIGHT UPPER LOBE NODULARITY. 3. MILD LEFT BASILAR AIRSPACE DISEASE WITH A CONCOMITANT EFFUSION.
[2019-01-19] MEDS ORDERED: cefTRIAXone IN SWFI 1,000 MG/10 ML SYRINGE IVP STA (11:32)
[2019-01-19] MEDS ORDERED: ACETAMINOPHEN TAB 325 MG TAB PO PRN (12:38)
[2019-01-19] MEDS ORDERED: NALOXONE 0.4 MG/ML 1 ML VIAL IV PRN (12:38)
[2019-01-19] MEDS ORDERED: HYDROCORTISONE SUCCINATE 100 MG/2 ML VIAL IV STA (12:41)
--- NOTE | 2019-01-19 12:42 | ED ---
Medical Decision Making - Lab Data Result diagrams: 01/19/19 09:20 01/19/19 09:20 Lab Results 01/19/19 01/19/19 01/19/19 Range/Units 09:20 09:20 09:20 WBC 7.5 (3.8-10.6) k/uL RBC 3.77 L (4.30-5.90) m/uL Hgb 12.4 L (13.0-17.5) gm/dL Hct 37.2 L (39.0-53.0) % MCV 98.6 (80.0-100.0) fL MCH 32.9 (25.0-35.0) pg MCHC 33.4 (31.0-37.0) g/dL RDW 13.5 (11.5-15.5) % Plt Count 167 (150-450) k/uL Neutrophils % 72 % Lymphocytes % 18 % Monocytes % 6 % Eosinophils % 2 % Basophils % 0 % Neutrophils # 5.4 (1.3-7.7) k/uL Lymphocytes # 1.4 (1.0-4.8) k/uL Monocytes # 0.5 (0-1.0) k/uL Eosinophils # 0.2 (0-0.7) k/uL Basophils # 0.0 (0-0.2) k/uL Sodium 138 (137-145) mmol/L Potassium 4.1 (3.5-5.1) mmol/L Chloride 104 (98-107) mmol/L Carbon Dioxide 24 (22-30) mmol/L Anion Gap 10 mmol/L BUN 19 (9-20) mg/dL Creatinine 1.01 (0.66-1.25) mg/dL Est GFR (CKD-EPI)AfAm 78 (>60 ml/min/1.73 sqM) Est GFR (CKD-EPI)NonAf 68 (>60 ml/min/1.73 sqM) Glucose 96 (74-99) mg/dL Plasma Lactic Acid [place] (0.7-2.0) mmol/L Calcium 8.6 (8.4-10.2) mg/dL Magnesium 1.8 (1.6-2.3) mg/dL Total Bilirubin 0.6 (0.2-1.3) mg/dL AST 22 (17-59) U/L ALT 22 (21-72) U/L Alkaline Phosphatase 73 (38-126) U/L Total Creatine Kinase <20 L (55-170) U/L CK-MB (CK-2) <0.2 (0.0-2.4) ng/mL CK-MB (CK-2) Rel Index Troponin I <0.012 (0.000-0.034) ng/mL Total Protein 6.7 (6.3-8.2) g/dL Albumin 3.7 (3.5-5.0) g/dL Amylase 38 (30-110) U/L Lipase 83 (23-300) U/L Urine Color Urine Appearance (Clear) Urine pH (5.0-8.0) Ur Specific [place] (1.001-1.035) Urine Protein (Negative) Urine Glucose (UA) (Negative) Urine Ketones (Negative) Urine Blood (Negative) Urine Nitrite (Negative) Urine Bilirubin (Negative) Urine Urobilinogen (<2.0) mg/dL Ur Leukocyte Esterase (Negative) Urine RBC (0-5) /hpf Urine WBC (0-5) /hpf Urine WBC Clumps (None) /hpf Ur Squamous Epith Cells (0-4) /hpf Amorphous Sediment (None) /hpf Urine Bacteria (None) /hpf 01/19/19 01/19/19 Range/Units 09:20 09:20 WBC (3.8-10.6) k/uL RBC (4.30-5.90) m/uL Hgb (13.0-17.5) gm/dL Hct (39.0-53.0) % MCV (80.0-100.0) fL MCH (25.0-35.0) pg MCHC (31.0-37.0) g/dL RDW (11.5-15.5) % Plt Count (150-450) k/uL Neutrophils % % Lymphocytes % % Monocytes % % Eosinophils % % Basophils % % Neutrophils # (1.3-7.7) k/uL Lymphocytes # (1.0-4.8) k/uL Monocytes # (0-1.0) k/uL Eosinophils # (0-0.7) k/uL Basophils # (0-0.2) k/uL Sodium (137-145) mmol/L Potassium (3.5-5.1) mmol/L Chloride (98-107) mmol/L Carbon Dioxide (22-30) mmol/L Anion Gap mmol/L BUN (9-20) mg/dL Creatinine (0.66-1.25) mg/dL Est GFR (CKD-EPI)AfAm (>60 ml/min/1.73 sqM) Est GFR (CKD-EPI)NonAf (>60 ml/min/1.73 sqM) Glucose (74-99) mg/dL Plasma Lactic Acid [place] 1.1 (0.7-2.0) mmol/L Calcium (8.4-10.2) mg/dL Magnesium (1.6-2.3) mg/dL Total Bilirubin (0.2-1.3) mg/dL AST (17-59) U/L ALT (21-72) U/L Alkaline Phosphatase (38-126) U/L Total Creatine Kinase (55-170) U/L CK-MB (CK-2) (0.0-2.4) ng/mL CK-MB (CK-2) Rel Index Troponin I (0.000-0.034) ng/mL Total Protein (6.3-8.2) g/dL Albumin (3.5-5.0) g/dL Amylase (30-110) U/L Lipase (23-300) U/L Urine Color Light Yellow Urine Appearance Cloudy (Clear) Urine pH 5.5 (5.0-8.0) Ur Specific [place] 1.009 (1.001-1.035) Urine Protein 1+ H (Negative) Urine Glucose (UA) Negative (Negative) Urine Ketones Negative (Negative) Urine Blood Negative (Negative) Urine Nitrite Positive (Negative) Urine Bilirubin Negative (Negative) Urine Urobilinogen <2.0 (<2.0) mg/dL Ur Leukocyte Esterase Large H (Negative) Urine RBC 1 (0-5) /hpf Urine WBC 54 H (0-5) /hpf Urine WBC Clumps Moderate H (None) /hpf Ur Squamous Epith Cells 1 (0-4) /hpf Amorphous Sediment Occasional H (None) /hpf Urine Bacteria Occasional H (None) /hpf Disposition Clinical Impression: Urinary tract infection, Dehydration, Hypotensive episode, Febrile illness, acute, Adrenal insufficiency Disposition[facility] Condition: Fair Referrals: None,Stated [Primary Care Provider] - 1-2 days
[2019-01-19] MEDS ORDERED: SODIUM CHLORIDE 0.9% 500 ML 500 ML IV STA (13:54)
[2019-01-19 15:15] VITALS: BMI 29.9
[2019-01-19] MEDS: SODIUM CHLORIDE 0.9% 1,000 ML IV SCH (18:17)
[2019-01-19] MEDS: PIPERACILLIN-TAZOBACTAM 3.375 GM in SODIUM CHLORIDE 0.9% 100 ML IVPB SCH ×2 (21:20→22:24)
[2019-01-19] MEDS: VIT A,C & E-LUTEIN-MINERALS 1 EACH TAB PO SCH (21:20)
[2019-01-20] MEDS: SODIUM CHLORIDE 0.9% 1,000 ML IV SCH ×2 (05:11→21:13)
[2019-01-20] MEDS: LEVOTHYROXINE 100 MCG TAB PO SCH (05:20)
[2019-01-20] MEDS: PIPERACILLIN-TAZOBACTAM 3.375 GM in SODIUM CHLORIDE 0.9% 100 ML IVPB SCH ×2 (07:45→17:01)
[2019-01-20] MEDS: HYDROCORTISONE 10 MG TAB PO SCH ×2 (07:46→15:03)
[2019-01-20] MEDS: LACTOBACILLUS ACIDOPH & BULGAR 1 EACH PACKET PO SCH (07:46)
[2019-01-20] MEDS: VIT A,C & E-LUTEIN-MINERALS 1 EACH TAB PO SCH ×2 (07:47→21:18)
--- NOTE | 2019-01-20 14:44 | P.HPIM ---
History of Present Illness H&P Date: 01/19/19 Chief Complaint: Generalized weakness with fever Mr. Foreman is an 83-year-old male with a past medical history of thyroid disorder, prostate cancer status post radiation, chronic urinary retention does self cath coming into the hospital with a chief complaint of generalized w eakness and fevers. Patient has a recurrent urinary tract infections. At the time of admission patient had a urinalysis that was positive for leukocyte esterase and nitrates. He was started on ceftriaxone in the emergency department and admitted to the floors. On reviewing the patient's past urine cultures he grew E. coli, Klebsiella, Enterobacter. His last UTI from November was showing Enterobacter cloacae that was not sensitive to ceftriaxone. So his antibiotic has been changed to Zosyn , and infectious disease Dr. Akins was consulted. Patient denies having any other active complaints. Denies having any headaches, blurring of vision or slurring of speech. No neck stiffness. No chest pain or palpitations. No cough or difficulty breathing. No apparent pain nausea vomiting or diarrhea. No lower extremity swelling. No orthopnea or PND. All 13 review of systems are negative except for the ones mentioned above Past Medical History Past Medical History: Cancer, Eye Disorder, Memory Impairment, Thyroid Disorder Additional Past Medical History / Comment(s): Prostate CA with radiation/urinary retention/self caths at 9pm and midnight and voids during daytime hours/ occasional incontinence of urine, frequent UTIs and has confusion with UTIs, stable pituitary mass, hyponatremia, chronic anemia, bilateral macular degeneration, hypothyroidism, pt's legs are cold all the time. History of Any Multi-Drug Resistant Organisms: Other MDRO Past Surgical History: Adenoidectomy, Tonsillectomy Additional Past Surgical History / Comment(s): EGD/colonoscopy. Past Anesthesia/Blood Transfusion Reactions: No Reported Reaction Past Psychological History: No Psychological Hx Reported Additional Psychological History / Comment(s): and lives in the family home. 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 No international travel. No current animal exposures. Pt has a cane, walker and 3 wheeled electric scooter. He drives short distances. His spouse drives. 3 adult children live nearby and are helpful. Smoking Status: Former smoker Past Alcohol Use History: None Reported Additional Past Alcohol Use History / Comment(s): Patient was a smoker 3 packs per day and smoked for less than 15 years quitting 15 years ago. He lives at home with his . No illicit drug use or alcohol use. There are 3 adult children that are nearby that help at home. 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 No international travel. No current animal exposures. Past Drug Use History: None Reported - Past Family History Father Family Medical History: Cancer Additional Family Medical History / Comment(s): Colon CA, at 74. Mother Family Medical History: No Reported History, CVA/TIA Additional Family Medical History / Comment(s): Mother of a CVA at the age of 83yrs. Medications and Allergies Home Medications Medication Instructions Recorded Confirmed Type Hydrocortisone [Cortef] 10 mg PO DAILY@1400 07/27/17 01/19/19 History Hydrocortisone [Cortef] 20 mg PO QAM 07/27/17 01/19/19 History Vit C/E/Zn/Coppr/Lutein/Zeaxan 1 cap PO BID 03/18/18 01/19/19 History [Preservision Areds 2 Softgel] L.acidoph,Paracasei, B.lactis 1 cap PO DAILY 04/17/18 01/19/19 History [Probiotic] Levothyroxine Sodium [Synthroid] 100 mcg PO DAILY 05/18/18 01/19/19 History Allergies Allergy/AdvReac Type Severity Reaction Status Date / Time No Known Allergies Allergy Verified 01/19/19 09:20 Physical Exam Vitals: Vital Signs Temp Pulse Pulse Resp BP BP Pulse Ox 01/19/19 21:00 98.6 F 63 18 152/73 94 L 01/19/19 15:20 99.2 F 81 16 113/66 92 L 01/19/19 14:02 69 20 91/51 95 01/19/19 12:10 52 L 18 83/57 98 01/19/19 11:36 99.3 F 01/19/19 11:30 74 20 103/53 96 01/19/19 11:00 78 16 95/59 01/19/19 10:30 79 16 100/67 97 01/19/19 10:00 77 16 111/45 98 01/19/19 09:36 102.5 F H 88 20 91/43 95 01/19/19 09:33 82 10 L 93 L Intake and Output 01/19/19 01/19/19 01/19/19 06:59 14:59 22:59 Intake Total 300 Balance 300 Intake: Oral 300 Other: Voiding Method Self-Catheterization Self-Catheterization # Voids 2 Weight 92.079 kg GENERAL: obese elderly HEENT: Pupils are round and equally reacting to light. EOMI. No scleral icterus. No conjunctival pallor. Normocephalic, atraumatic. No pharyngeal erythema. No thyromegaly. CARDIOVASCULAR: S1 and S2 present. No murmurs, rubs, or gallops. PULMONARY: Chest is clear to auscultation, no wheezing or crackles. ABDOMEN: Soft, nontender, nondistended, normoactive bowel sounds. No palpable organomegaly. MUSCULOSKELETAL: No joint swelling or deformity. EXTREMITIES: No cyanosis, clubbing, or pedal edema. NEUROLOGICAL: Gross neurological examination did not reveal any focal deficits. SKIN: No rashes. Results CBC & Chem 7: 01/19/19 09:20 01/19/19 09:20 Labs: Abnormal Lab Results - Last 24 Hours (Table) 01/19/19 01/19/19 01/19/19 Range/Units 09:20 09:20 09:20 RBC 3.77 L (4.30-5.90) m/uL Hgb 12.4 L (13.0-17.5) gm/dL Hct 37.2 L (39.0-53.0) % Total Creatine Kinase <20 L (55-170) U/L Urine Protein 1+ H (Negative) Ur Leukocyte Esterase Large H (Negative) Urine WBC 54 H (0-5) /hpf Urine WBC Clumps Moderate H (None) /hpf Amorphous Sediment Occasional H (None) /hpf Urine Bacteria Occasional H (None) /hpf Microbiology - Last 24 Hours (Table) 01/19/19 09:20 Urine Culture - Preliminary Urine,Catheterized Thrombosis Risk Factor Assmnt - Choose All That Apply Any of the Below Risk Factors Present?: Yes Each Factor Represents 1 point: Medical pt on bed rest, Obesity (BMI >25) Other Risk Factors: Yes Each Risk Factor Represents 3 Points: Age 75 years or older Other congenital or acquired thrombophilia - If yes, enter type in comment: No Thrombosis Risk Factor Assessment Total Risk Factor Score: 5 Thrombosis Risk Factor Assessment Level: High Risk Assessment and Plan Assessment: ASSESSMENT Urinary tract infection - patient has history of multiple UTIs- straight catheterization at home Hypoadrenalism Hypothyroidism Obesity with BMI of 30 History of prostate cancer status post radiation therapy and chronic urinary retention PLAN: Patient received a dose of ceftriaxone in the deep. As his previous cultures were positive for Enterobacter cloacae, that was not sensitive to ceftriaxone, his antibiotic has been changed to Zosyn. ID consult has been obtained. Urine cultures and blood cultures pending at this time. Patient has been restarted on his home medications. Further recommendations to follow depending on the progress of the patient.
--- NOTE | 2019-01-20 14:48 | P.PN ---
Subjective Progress Note Date: 01/20/19 Principal diagnosis: Recurrent UTIs Mr. Foreman is an 83-year-old male with a past medical history of thyroid disorder, prostate cancer status post radiation, chronic urinary retention does self cath coming into the hospital with a chief complaint of generalized weakness and fevers. Patient has a recurrent urinary tract infections. At the time of admission patient had a urinalysis that was positive for leukocyte esterase and nitrates. He was started on ceftriaxone in the emergency department and admitted to the floors. On reviewing the patient's past urine cultures he grew E. coli, Klebsiella, Enterobacter. His last UTI from November was showing Enterobacter cloacae that was not sensitive to ceftriaxone. So his antibiotic has been changed to Zosyn , and infectious disease Dr. Akins was consulted. On 01/20/2019 - as per the discussion with the nursing staff, the patient does not follow stay well precautions when doing straight. So the possible reason behind his recurrent UTIs is that he might not be doing a good job with his catheter. Patient is sitting comfortably at the bedside and appears to be no acute distress, states that he did not have fevers since being admitted. Patient denies having any chest pain or palpitations. No burning sensation or pain. Active Medications Acetaminophen (Tylenol Tab) 650 mg PO Q6HR PRN PRN Reason: Mild Pain or Fever > 100.5 Hydrocortisone (Cortef) 20 mg PO QAM [facility] Last Admin: 01/20/19 07:46 Dose: 20 mg Documented by: Hydrocortisone (Cortef) 10 mg PO DAILY@1400 [facility] Sodium Chloride (Saline 0.9%) 1,000 mls @ 75 mls/hr IV .[id number] [facility] Last Admin: 01/20/19 05:11 Dose: Not Given Documented by: Piperacillin Sod/Tazobactam (Sod 3.375 gm/ Sodium Chloride) 100 mls @ 25 mls/hr IVPB Q8HR [facility] Last Admin: 01/20/19 07:45 Dose: 25 mls/hr Documented by: Lactobacillus Acidoph/Bulgaricus (Lactinex) 1 each PO DAILY [facility] Last Admin: 01/20/19 07:46 Dose: 1 each Documented by: Levothyroxine Sodium (Synthroid) 100 mcg PO DAILY@0630 [facility] Last Admin: 01/20/19 05:20 Dose: 100 mcg Documented by: Multivitamins/Minerals (Ivite) 1 each PO BID [facility] Last Admin: 01/20/19 07:47 Dose: 1 each Documented by: Naloxone HCl (Narcan) 0.2 mg IV Q2M PRN PRN Reason: Opioid Reversal Objective - Vital Signs Vital signs: Vital Signs Temp 98.5 F 01/20/19 12:56 Pulse 65 01/20/19 12:56 Resp 18 01/20/19 12:56 BP 122/69 01/20/19 12:56 Pulse Ox 96 01/20/19 12:56 Intake & Output 01/19/19 01/20/19 01/20/19 18:59 06:59 18:59 Intake Total 300 Output Total 500 Balance -200 Weight 92.079 kg Intake: Oral 300 Output: Urine 500 Straight 500 Other: Voiding Method Self-Catheterization Self-Catheterization Toilet Self-Catheterization # Voids 2 0 # Bowel Movements 0 - Exam GENERAL: obese elderly HEENT: Pupils are round and equally reacting to light. EOMI. No scleral icterus. No conjunctival pallor. CARDIOVASCULAR: S1 and S2 present. ops. PULMONARY: Chest is clear to auscultation, no wheezing or crackles. ABDOMEN: Soft, nontender, nondistended, normoactive bowel sounds. No palpable organomegaly. EXTREMITIES: No cyanosis, clubbing, or pedal edema. NEUROLOGICAL: Gross neurological examination did not reveal any focal deficits. SKIN: Redness of the skin in the suprapubic area in between the abdominal folds. - Labs CBC & Chem 7: 01/19/19 09:20 01/19/19 09:20 Labs: Microbiology - Last 24 Hours (Table) 01/19/19 09:20 Urine Culture - Preliminary Urine,Catheterized Gram Neg Bacilli Assessment and Plan Assessment: ASSESSMENT Urinary tract infection - patient has history of multiple UTIs- straight catheterization at home Hypoadrenalism Hypothyroidism Obesity with BMI of 30 History of prostate cancer status post radiation therapy and chronic urinary retention PLAN: Patient is currently on Zosyn. Urine cultures are positive for gram- negative bacilli. Patient has been restarted on his home medications. ID Dr. Akins on board. Patient's need to be educated on following sterile methods and changing his catheter. Further recommendations to follow depending on the progress of the patient.
--- NOTE | 2019-01-21 00:01 | P.CONS ---
History of Present Illness - Reason for Consult Consult date: 01/20/19 - Chief Complaint weakness - History of Present Illness 83-year-old male well-known to the infectious disease service for as many hospitalizations and outpatient visits regarding his frequent urinary tract infections. Is noted he has chronic urinary retention on the basis of his prior prostate cancer and radiation therapy. He follows with urology. He was recently hospitalized 3 had difficulty with some retention and did have a short course of a Black catheter. However after an office procedure he has been down to just twice a day catheterization has been doing well with low volumes and no infections as of late. 4 the patient had a sudden acute change of status consistent with his pattern of prior urinary infections. He was brought to hospital and has evidence of a urinary tract infection. Given his significant polymicrobial infections in the past Zosyn has been initiated. The patient is feeling considerably better at this point in time and cultures are pending. Review of Systems at home the patient had fever and chills this is now much HEENT:Denies headache or acute visual change. Denies sinus or mouth discomforts. Denies neck stiffness or pain. Denies significant oral cavity pain. Denies difficulty on swallowing. Lungs: Denies significant shortness of breath, cough, sputum production, or hemoptysis. Cardiovascular: Denies significant shortness of breath, chest pain, chest wall pain, orthopnea, dyspnea on exertion, syncope Gastrointestinal:Denies nausea, vomiting, diarrhea, constipation, hematemesis, melena, hematochezia. No no significant change of bowel habit noticed. Musculoskeletal: denies significant myalgias or arthralgias. No new joint swelling. Denies new back pain. Skin: Denies new rash or lesions. No new ulcers or wounds are related.. Neuro: Denies headache or visual change. generalized weakness at admission imp Psychiatric:Denies anxiety or depression. Endocrine: Denies significant fatigue, denies significant weight loss or weight gain. Past Medical History Past Medical History: Cancer, Eye Disorder, Memory Impairment, Thyroid Disorder Additional Past Medical History / Comment(s): Prostate CA with radiation/urinary retention/self caths at 9pm and midnight and voids during daytime hours/ occasional incontinence of urine, frequent UTIs and has confusion with UTIs, stable pituitary mass, hyponatremia, chronic anemia, bilateral macular degeneration, hypothyroidism, pt's legs are cold all the time. History of Any Multi-Drug Resistant Organisms: Other MDRO Past Surgical History: Adenoidectomy, Tonsillectomy Additional Past Surgical History / Comment(s): EGD/colonoscopy. Past Anesthesia/Blood Transfusion Reactions: No Reported Reaction Past Psychological History: No Psychological Hx Reported Additional Psychological History / Comment(s): and lives in the family home. 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 No international travel. No current animal exposures. Pt has a cane, walker and 3 wheeled electric scooter. He drives short distances. His spouse drives. 3 adult children live nearby and are helpful. Smoking Status: Former smoker Past Alcohol Use History: None Reported Additional Past Alcohol Use History / Comment(s): Patient was a smoker 3 packs per day and smoked for less than 15 years quitting 15 years ago. He lives at home with his . No illicit drug use or alcohol use. There are 3 adult children that are nearby that help at home. 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 No international travel. No current animal exposures. Past Drug Use History: None Reported - Past Family History Father Family Medical History: Cancer Additional Family Medical History / Comment(s): Colon CA, at 74. Mother Family Medical History: No Reported History, CVA/TIA Additional Family Medical History / Comment(s): Mother of a CVA at the age of 83yrs. Medications and Allergies Home Medications and Allergies Comment(s): Current Medications Acetaminophen (Tylenol Tab) 650 mg PO Q6HR PRN PRN Reason: Mild Pain or Fever > 100.5 Hydrocortisone (Cortef) 20 mg PO QAM [facility] Last Admin: 01/20/19 07:46 Dose: 20 mg Documented by: Hydrocortisone (Cortef) 10 mg PO DAILY@1400 [facility] Last Admin: 01/20/19 15:03 Dose: 10 mg Documented by: Sodium Chloride (Saline 0.9%) 1,000 mls @ 75 mls/hr IV .[id number] [facility] Last Admin: 01/20/19 21:13 Dose: 75 mls/hr Documented by: Piperacillin Sod/Tazobactam (Sod 3.375 gm/ Sodium Chloride) 100 mls @ 25 mls/hr IVPB Q8HR [facility] Last Admin: 01/20/19 17:01 Dose: 25 mls/hr Documented by: Lactobacillus Acidoph/Bulgaricus (Lactinex) 1 each PO DAILY [facility] Last Admin: 01/20/19 07:46 Dose: 1 each Documented by: Levothyroxine Sodium (Synthroid) 100 mcg PO DAILY@0630 [facility] Last Admin: 01/20/19 05:20 Dose: 100 mcg Documented by: Multivitamins/Minerals (Ivite) 1 each PO BID [facility] Last Admin: 01/20/19 21:18 Dose: Not Given Documented by: Naloxone HCl (Narcan) 0.2 mg IV Q2M PRN PRN Reason: Opioid Reversal Home Medications Medication Instructions Recorded Confirmed Type Hydrocortisone [Cortef] 10 mg PO DAILY@1400 07/27/17 01/19/19 History Hydrocortisone [Cortef] 20 mg PO QAM 07/27/17 01/19/19 History Vit C/E/Zn/Coppr/Lutein/Zeaxan 1 cap PO BID 03/18/18 01/19/19 History [Preservision Areds 2 Softgel] L.acidoph,Paracasei, B.lactis 1 cap PO DAILY 04/17/18 01/19/19 History [Probiotic] Levothyroxine Sodium [Synthroid] 100 mcg PO DAILY 05/18/18 01/19/19 History Allergies Allergy/AdvReac Type Severity Reaction Status Date / Time No Known Allergies Allergy Verified 01/19/19 09:20 Physical Exam Vitals: Vital Signs Temp Pulse Resp BP BP Pulse Ox 01/20/19 20:45 98.3 F 58 L 20 142/68 93 L 01/20/19 12:56 98.5 F 65 18 122/69 96 01/20/19 11:00 18 01/20/19 06:40 97.7 F 58 L 18 130/68 98 Intake and Output 01/20/19 01/20/19 01/21/19 14:59 22:59 06:59 Other: Voiding Method Toilet Toilet Self-Catheterization Self-Catheterization # Voids 2 1 # Bowel Movements 0 Pleasant 83-year-old male who is feeling better than admission HEENT: Anicteric conjunctiva are pink and moist nasal mucosa grossly intact with out significant lesions, there is no thrush. Neck: The neck is supple without significant lymphadenopathy or thyromegaly. Lungs: Good bilateral air entry without significant crackles or wheezing. There is no significant bronchial sounds. There is no egophony or dullness. Heart: Regular rate and rhythm with an audible S1-S2, no S3 no S4. There is no significant murmur click or rub, PMI was nondisplaced. Abdomen: Positive bowel sounds soft and nontender without palpable masses or organomegaly. There was no guarding or rebound. Extremities: The upper extremities have excellent pulses they are symmetric, no significant petechiae or telangiectasia. No splinter hemorrhages were noted. The lower extremities are free from significant edema. The peripheral pulses were 2+ and symmetric. Neuro: Awake alert oriented to person place and time. There are no acute new gross focal sensory motor deficits. skin evidence of extensive solar elastosis and damage Results CBC & Chem 7: 01/19/19 09:20 01/19/19 09:20 Labs: Microbiology - Last 24 Hours (Table) 01/19/19 19:57 Blood Culture - Preliminary Blood No Growth after 24 hours 01/19/19 19:51 Blood Culture - Preliminary Blood No Growth after 24 hours 01/19/19 09:20 Urine Culture - Preliminary Urine,Catheterized Gram Neg Bacilli Laboratory Results WBC 7.5 k/uL (3.8-10.6) 01/19/19 09:20 RBC 3.77 m/uL (4.30-5.90) L 01/19/19 09:20 Hgb 12.4 gm/dL (13.0-17.5) L 01/19/19 09:20 Hct 37.2 % (39.0-53.0) L 01/19/19 09:20 MCV 98.6 fL (80.0-100.0) 01/19/19 09:20 MCH 32.9 pg (25.0-35.0) 01/19/19 09:20 MCHC 33.4 g/dL (31.0-37.0) 01/19/19 09:20 RDW 13.5 % (11.5-15.5) 01/19/19 09:20 Plt Count 167 k/uL (150-450) 01/19/19 09:20 Neutrophils % 72 % 01/19/19 09:20 Lymphocytes % 18 % 01/19/19 09:20 Monocytes % 6 % 01/19/19 09:20 Eosinophils % 2 % 01/19/19 09:20 Basophils % 0 % 01/19/19 09:20 Neutrophils # 5.4 k/uL (1.3-7.7) 01/19/19 09:20 Lymphocytes # 1.4 k/uL (1.0-4.8) 01/19/19 09:20 Monocytes # 0.5 k/uL (0-1.0) 01/19/19 09:20 Eosinophils # 0.2 k/uL (0-0.7) 01/19/19 09:20 Basophils # 0.0 k/uL (0-0.2) 01/19/19 09:20 Sodium 138 mmol/L (137-145) 01/19/19 09:20 Potassium 4.1 mmol/L (3.5-5.1) 01/19/19 09:20 Chloride 104 mmol/L (98-107) 01/19/19 09:20 Carbon Dioxide 24 mmol/L (22-30) 01/19/19 09:20 Anion Gap 10 mmol/L 01/19/19 09:20 BUN 19 mg/dL (9-20) 01/19/19 09:20 Creatinine 1.01 mg/dL (0.66-1.25) 01/19/19 09:20 Est GFR (CKD-EPI)AfAm 78 (>60 ml/min/1.73 sqM) 01/19/19 09:20 Est GFR (CKD-EPI)NonAf 68 (>60 ml/min/1.73 sqM) 01/19/19 09:20 Glucose 96 mg/dL (74-99) 01/19/19 09:20 Plasma Lactic Acid [place] 1.1 mmol/L (0.7-2.0) 01/19/19 09:20 Calcium 8.6 mg/dL (8.4-10.2) 01/19/19 09:20 Magnesium 1.8 mg/dL (1.6-2.3) 01/19/19 09:20 Total Bilirubin 0.6 mg/dL (0.2-1.3) 01/19/19 09:20 AST 22 U/L (17-59) 01/19/19 09:20 ALT 22 U/L (21-72) 01/19/19 09:20 Alkaline Phosphatase 73 U/L (38-126) 01/19/19 09:20 Total Creatine Kinase <20 U/L (55-170) L 01/19/19 09:20 CK-MB (CK-2) <0.2 ng/mL (0.0-2.4) 01/19/19 09:20 CK-MB (CK-2) Rel Index 01/19/19 09:20 Troponin I <0.012 ng/mL (0.000-0.034) 01/19/19 09:20 Total Protein 6.7 g/dL (6.3-8.2) 01/19/19 09:20 Albumin 3.7 g/dL (3.5-5.0) 01/19/19 09:20 Amylase 38 U/L (30-110) 01/19/19 09:20 Lipase 83 U/L (23-300) 01/19/19 09:20 Cortisol 9 ug/dL 01/19/19 09:20 Urine Color Light Yellow 01/19/19 09:20 Urine Appearance Cloudy (Clear) 01/19/19 09:20 Urine pH 5.5 (5.0-8.0) 01/19/19 09:20 Ur Specific [place] 1.009 (1.001-1.035) 01/19/19 09:20 Urine Protein 1+ (Negative) H 01/19/19 09:20 Urine Glucose (UA) Negative (Negative) 01/19/19 09:20 Urine Ketones Negative (Negative) 01/19/19 09:20 Urine Blood Negative (Negative) 01/19/19 09:20 Urine Nitrite Positive (Negative) 01/19/19 09:20 Urine Bilirubin Negative (Negative) 01/19/19 09:20 Urine Urobilinogen <2.0 mg/dL (<2.0) 01/19/19 09:20 Ur Leukocyte Esterase Large (Negative) H 01/19/19 09:20 Urine RBC 1 /hpf (0-5) 01/19/19 09:20 Urine WBC 54 /hpf (0-5) H 01/19/19 09:20 Urine WBC Clumps Moderate /hpf (None) H 01/19/19 09:20 Ur Squamous Epith Cells 1 /hpf (0-4) 01/19/19 09:20 Amorphous Sediment Occasional /hpf (None) H 01/19/19 09:20 Urine Bacteria Occasional /hpf (None) H 01/19/19 09:20 Microbiology Entire Visit 01/19/19 19:57 Blood Blood Culture - Preliminary No Growth after 24 hours 01/19/19 19:51 Blood Blood Culture - Preliminary No Growth after 24 hours 01/19/19 09:20 Urine,Catheterized Urine Culture - Preliminary Gram Neg Bacilli Assessment and Plan (1) Gram negative sepsis Narrative/Plan: 83-year-old male presents to Hospital from home with the progressive onset of weakness and fatigue. The patient has a history of multiple prior urinary infections and with the symptoms was brought to hospital for further evaluation. Recent hospitalization did reveal evidence of some urinary retention after procedure has been doing somewhat better. Does perform straight catheterization twice a day and is having volumes not much more than 300 mL. Overall is doing well to the current onset of fever and sepsis. Gram-negative urinary tract infection with bacteremia is likely. Based on his history Zosyn his being utilized. Urine culture will help determine the plan for antibiotic therapy at discharge. His fever is improving. Leukocytosis is improved. No evidence of the extensive urinary retention at this time. His strength is improved he sitting upright in the chair looking forward to dinner. Current Visit: Yes Status: Acute Code(s): A41.50 - GRAM-NEGATIVE SEPSIS, UNSPECIFIED SNOMED Code(s): 299246484 (2) Urinary tract infection Current Visit: Yes Status: Acute Code(s): N39.0 - URINARY TRACT INFECTION, SITE NOT SPECIFIED SNOMED Code(s): 01580790 (3) Urinary retention Current Visit: No Status: Acute Code(s): R33.9 - RETENTION OF URINE, UNSPECIFIED SNOMED Code(s): 073838467 (4) Fever Current Visit: Yes Status: Acute Code(s): R50.9 - FEVER, UNSPECIFIED SNOMED Code(s): 322550242
[2019-01-21] MEDS: PIPERACILLIN-TAZOBACTAM 3.375 GM in SODIUM CHLORIDE 0.9% 100 ML IVPB SCH ×3 (01:43→15:08)
[2019-01-21] MEDS: LEVOTHYROXINE 100 MCG TAB PO SCH (05:40)
--- NOTE | 2019-01-21 07:12 | P.PN ---
Subjective History of present illness, from records Mr. Foreman is an 83-year-old male with a past medical history of thyroid disorder, prostate cancer status post radiation, chronic urinary retention does self cath coming into the hospital with a chief complaint of generalized weakness and fevers. Patient has a recurrent urinary tract infections. At the time of admission patient had a urinalysis that was positive for leukocyte esterase and nitrates. He was started on ceftriaxone in the emergency department and admitted to the floors. On reviewing the patient's past urine cultures he grew E. coli, Klebsiella, Enterobacter. His last UTI from November was showing Enterobacter cloacae that was not sensitive to ceftriaxone. So his antibiotic has been changed to Zosyn , and infectious disease Dr. Akins was consulted. On 01/20/2019 - as per the discussion with the nursing staff, the patient does not follow stay well precautions when doing straight. So the possible reason behind his recurrent UTIs is that he might not be doing a good job with his catheter. Patient is sitting comfortably at the bedside and appears to be no acute distress, states that he did not have fevers since being admitted. Patient denies having any chest pain or palpitations. No burning sensation or pain. Subjective 01/21/2019 Patient states he came into the hospital because of fever. He denies pain currently or on admission. Patient is self cath himself for the last couple of years because of urinary retention as he is telling me. He follows with Dr. Downey, the urologist and last time he saw her about couple months ago. He has upcoming appointment with a 30 days and the has the exact appointment time. Patient denies dysuria currently. No abdominal pain. No chest pain or dyspnea. No nausea vomiting. He is ambulating without difficulty as per patient. He had fever of 102.5 on admission, and no fever today. His urine culture is growing gram-negative bacilli. No final results of the culture available yet.he is currently on Zosyn. Infectious disease input is appreciated. CONSTITUTIONAL: No fever, no malaise, no fatigue. HEENT: No recent visual problems or hearing problems. Denied any sore throat. CARDIOVASCULAR: No orthopnea, PND, no palpitations, no syncope. PULMONARY: No shortness of breath, no cough, no hemoptysis. GASTROINTESTINAL: No diarrhea, no nausea, no vomiting, no abdominal pain. Normoactive bowel sounds. NEUROLOGICAL: No headaches, no weakness, no numbness. HEMATOLOGICAL: Denies any bleeding or petechiae. GENITOURINARY: Denies any burning micturition, frequency, or urgency. MUSCULOSKELETAL/RHEUMATOLOGICAL: Denies any joint pain, swelling, or any muscle pain. ENDOCRINE: Denies any polyuria or polydipsia. Medication: Tylenol, Cortef in the morning and evening. Lactinex, Synthroid, multivitamin tablets, Zosyn, normal saline. Objective - Vital Signs Vital signs: Vital Signs Temp 97.5 F L 01/21/19 05:49 Pulse 69 01/21/19 05:49 Resp 20 01/21/19 05:49 BP 125/61 01/21/19 05:49 Pulse Ox 94 L 01/21/19 05:49 Intake & Output 01/20/19 01/21/19 01/21/19 18:59 06:59 18:59 Output Total 600 Balance -600 Output: Urine 600 Other: Voiding Method Toilet Toilet Self-Catheterization Self-Catheterization # Voids 1 3 # Bowel Movements 0 0 - Labs CBC & Chem 7: 01/19/19 09:20 01/19/19 09:20 Labs: Microbiology - Last 24 Hours (Table) 01/19/19 19:57 Blood Culture - Preliminary Blood No Growth after 24 hours 01/19/19 19:51 Blood Culture - Preliminary Blood No Growth after 24 hours 01/19/19 09:20 Urine Culture - Preliminary Urine,Catheterized Gram Neg Bacilli
[2019-01-21] MEDS: VIT A,C & E-LUTEIN-MINERALS 1 EACH TAB PO SCH ×2 (07:23→23:38)
[2019-01-21] MEDS: LACTOBACILLUS ACIDOPH & BULGAR 1 EACH PACKET PO SCH (07:23)
[2019-01-21] MEDS: SODIUM CHLORIDE 0.9% 1,000 ML IV SCH (07:23)
[2019-01-21] MEDS: HYDROCORTISONE 10 MG TAB PO SCH ×2 (07:23→14:13)
[2019-01-21] MEDS: ENOXAPARIN 40 MG/0.4 ML SYRINGE SQ SCH (07:28)
[2019-01-21 10:02] LABS: Basophils % (A) 0 %; Eosinophils # (A) 0.2 k/uL (0-0.7); Eosinophils % (A) 2 %; HGB 10.6 gm/dL (13.0-17.5); Lymphocytes # (A) 1.1 k/uL (1.0-4.8); Lymphocytes % (A) 17 %; MCH 32.7 pg (25.0-35.0); MCHC 32.2 g/dL (31.0-37.0); MCV 101.4 fL (80.0-100.0); Macrocytosis Slight; Mean Platelet Volume 7.1; Monocytes # (A) 0.3 k/uL (0-1.0); Monocytes % (A) 5 %; Neutrophils # (A) 4.8 k/uL (1.3-7.7); Neutrophils % (A) 74 %; Platelet Count 168 k/uL (150-450); RBC 3.26 m/uL (4.30-5.90); RDW 13.7 % (11.5-15.5); WBC 6.5 k/uL (3.8-10.6)
[2019-01-21 10:29] LABS: Calcium 8.4 mg/dL (8.4-10.2)
[2019-01-21 13:18] VITALS: TEMP 97.9
[2019-01-21 23:18] VITALS: RESP 20
--- NOTE | 2019-01-22 00:07 | P.PN ---
Subjective Progress Note Date: 01/22/19 83-year-old male well-known to the infectious disease service for as many hospitalizations and outpatient visits regarding his frequent urinary tract infections. Is noted he has chronic urinary retention on the basis of his prior prostate cancer and radiation therapy. He follows with urology. He was recently hospitalized 3 had difficulty with some retention and did have a short course of a Black catheter. However after an office procedure he has been down to just twice a day catheterization has been doing well with low volumes and no infections as of late. The patient had a sudden acute change of status consistent with his pattern of prior urinary infections. He was brought to [facility] and has evidence of a urinary tract infection. Given his significant polymicrobial infections in the past Zosyn has been initiated. The patient is feeling considerably better at this point in time and cultures are pending. 01/21/2019 patient is feeling better. Wants know what is going home. Is agitated and is not been discharged. Objective - Vital Signs Vital signs: Vital Signs Temp 97.9 F 01/21/19 21:40 Pulse 36 L 01/21/19 21:40 Resp 20 01/21/19 21:40 BP 155/74 01/21/19 21:40 Pulse Ox 97 01/21/19 21:40 Intake & Output 01/21/19 01/21/19 01/22/19 06:59 18:59 06:59 Intake Total 100 Output Total 600 Balance -600 100 Intake: Oral 100 Output: Urine 600 Other: Voiding Method Toilet Toilet Self-Catheterization Self-Catheterization # Voids 3 3 1 # Bowel Movements 0 - Exam Pleasant 83-year-old male who is feeling better than at admission, really wanted to go home but relates that his didn't think he was well enough to come home so quickly, regardless he still upset that he didn't get to go home HEENT: Anicteric conjunctiva are pink and moist nasal mucosa grossly intact without significant lesions, there is no thrush. Neck: The neck is supple without significant lymphadenopathy or thyromegaly. Lungs: Good bilateral air entry without significant crackles or wheezing. There is no significant bronchial sounds. There is no egophony or dullness. Heart: Regular rate and rhythm with an audible S1-S2, no S3 no S4. There is no significant murmur click or rub, PMI was nondisplaced. Abdomen: Positive bowel sounds soft and nontender without palpable masses or organomegaly. There was no guarding or rebound. Extremities: The upper extremities have excellent pulses they are symmetric, no significant petechiae or telangiectasia. No splinter hemorrhages were noted. The lower extremities are free from significant edema. The peripheral pulses were 2+ and symmetric. Neuro: Awake alert oriented to person place and time. There are no acute new gross focal sensory motor deficits. skin evidence of extensive solar elastosis and damage - Labs CBC & Chem 7: 01/21/19 09:18 01/21/19 09:18 Labs: Abnormal Lab Results - Last 24 Hours (Table) 01/21/19 01/21/19 Range/Units : 09:18 RBC 3.26 L (4.30-5.90) m/uL Hgb 10.6 L (13.0-17.5) gm/dL Hct 33.0 L (39.0-53.0) % MCV 101.4 H (80.0-100.0) fL Chloride 109 H (98-107) mmol/L Microbiology - Last 24 Hours (Table) 01/19/19 19:57 Blood Culture - Preliminary Blood No Growth after 48 hours 01/19/19 19:51 Blood Culture - Preliminary Blood No Growth after 48 hours 01/19/19 09:20 Urine Culture - Final Urine,Catheterized Enterobacter aerogenes Laboratory Results WBC 6.5 k/uL (3.8-10.6) 01/21/19 09:18 RBC 3.26 m/uL (4.30-5.90) L 01/21/19:18 Hgb 10.6 gm/dL (13.0-17.5) L 01/21/19 09:18 Hct 33.0 % (39.0-53.0) L 01/21/19 09:18 MCV 101.4 fL (80.0-100.0) H 01/21/19:18 MCH 32.7 pg (25.0-35.0) 01/21/19:18 MCHC 32.2 g/dL (31.0-37.0) 01/21/19 09:18 RDW 13.7 % (11.5-15.5) 01/21/19:18 Plt Count 168 k/uL (150-450) 01/21/19 09:18 Neutrophils % 74 % 01/21/19 09:18 Lymphocytes % 17 % 01/21/19 09:18 Monocytes % 5 % 01/21/19 09:18 Eosinophils % 2 % 01/21/19 09:18 Basophils % 0 % 01/21/19 09:18 Neutrophils # 4.8 k/uL (1.3-7.7) 01/21/19 09:18 Lymphocytes # 1.1 k/uL (1.0-4.8) 01/21/19 09:18 Monocytes # 0.3 k/uL (0-1.0) 01/21/19 09:18 Eosinophils # 0.2 k/uL (0-0.7) 01/21/19 09:18 Basophils # 0.0 k/uL (0-0.2) 01/21/19 09:18 Macrocytosis Slight 01/21/19 09:18 Sodium 139 mmol/L (137-145) 01/21/19 09:18 Potassium 4.0 mmol/L (3.5-5.1) 01/21/19 09:18 Chloride 109 mmol/L (98-107) H 01/21/19 09:18 Carbon Dioxide 24 mmol/L (22-30) 01/21/19 09:18 Anion Gap 6 mmol/L 01/21/19 09:18 BUN 19 mg/dL (9-20) 01/21/19 09:18 Creatinine 1.13 mg/dL (0.66-1.25) 01/21/19 09:18 Est GFR (CKD-EPI)AfAm 69 (>60 ml/min/1.73 sqM) 01/21/19 09:18 Est GFR (CKD-EPI)NonAf 59 (>60 ml/min/1.73 sqM) 01/21/19 09:18 Glucose 85 mg/dL (74-99) 01/21/19 09:18 Plasma Lactic Acid [place] 1.1 mmol/L (0.7-2.0) 01/19/19 09:20 Calcium 8.4 mg/dL (8.4-10.2) 01/21/19 09:18 Magnesium 1.8 mg/dL (1.6-2.3) 01/19/19 09:20 Total Bilirubin 0.6 mg/dL (0.2-1.3) 01/19/19 09:20 AST 22 U/L (17-59) 01/19/19 09:20 ALT 22 U/L (21-72) 01/19/19 09:20 Alkaline Phosphatase 73 U/L (38-126) 01/19/19 09:20 Total Creatine Kinase <20 U/L (55-170) L 01/19/19 09:20 CK-MB (CK-2) <0.2 ng/mL (0.0-2.4) 01/19/19 09:20 CK-MB (CK-2) Rel Index 01/19/19 09:20 Troponin I <0.012 ng/mL (0.000-0.034) 01/19/19 09:20 Total Protein 6.7 g/dL (6.3-8.2) 01/19/19 09:20 Albumin 3.7 g/dL (3.5-5.0) 01/19/19 09:20 Amylase 38 U/L (30-110) 01/19/19 09:20 Lipase 83 U/L (23-300) 01/19/19 09:20 Cortisol 9 ug/dL 01/19/19 09:20 Urine Color Light Yellow 01/19/19 09:20 Urine Appearance Cloudy (Clear) 01/19/19 09:20 Urine pH 5.5 (5.0-8.0) 01/19/19 09:20 Ur Specific [place] 1.009 (1.001-1.035) 01/19/19 09:20 Urine Protein 1+ (Negative) H 01/19/19 09:20 Urine Glucose (UA) Negative (Negative) 01/19/19 09:20 Urine Ketones Negative (Negative) 01/19/19 09:20 Urine Blood Negative (Negative) 01/19/19 09:20 Urine Nitrite Positive (Negative) 01/19/19 09:20 Urine Bilirubin Negative (Negative) 01/19/19 09:20 Urine Urobilinogen <2.0 mg/dL (<2.0) 01/19/19 09:20 Ur Leukocyte Esterase Large (Negative) H 01/19/19 09:20 Urine RBC 1 /hpf (0-5) 01/19/19 09:20 Urine WBC 54 /hpf (0-5) H 01/19/19 09:20 Urine WBC Clumps Moderate /hpf (None) H 01/19/19 09:20 Ur Squamous Epith Cells 1 /hpf (0-4) 01/19/19 09:20 Amorphous Sediment Occasional /hpf (None) H 01/19/19 09:20 Urine Bacteria Occasional /hpf (None) H 01/19/19 09:20 Microbiology 01/19/19 19:57 Blood Blood Culture - Preliminary No Growth after 48 hours 01/19/19 19:51 Blood Blood Culture - Preliminary No Growth after 48 hours 01/19/19 09:20 Urine,Catheterized Urine Culture - Final Enterobacter aerogenes Assessment and Plan (1) Gram negative sepsis Narrative/Plan: 83-year-old male presents to Hospital from home with the progressive onset of weakness and fatigue. The patient has a history of multiple prior urinary infections and with the symptoms was brought to hospital for further evaluation. Recent hospitalization did reveal evidence of some urinary retention after procedure has been doing somewhat better. Does perform straight catheterization twice a day and is having volumes not much more than 300 mL. Overall is doing well to the current onset of fever and sepsis. Gram-negative urinary tract infection with bacteremia is likely. Based on his history Zosyn his being utilized. Urine culture will help determine the plan for antibiotic therapy at discharge. His fever is improving. Leukocytosis is improved. No evidence of the extensive urinary retention at this time. His strength is improved he sitting upright in the chair looking forward to dinner. 01/21/2019 the patient is feeling considerably better. Culture is now finalized on an Enterobacter species that fortunately is susceptible to trimethoprim sulfamethoxazole and this is been sent to his pharmacy. Expect discharge home early tomorrow if his is able to get him home at that time. He is doing considerably better. Current Visit: Yes Status: Acute Code(s): A41.50 - GRAM-NEGATIVE SEPSIS, UNSPECIFIED SNOMED Code(s): 824371743 (2) Urinary tract infection Current Visit: Yes Status: Acute Code(s): N39.0 - URINARY TRACT INFECTION, SITE NOT SPECIFIED SNOMED Code(s): 38793561 (3) Urinary retention Current Visit: No Status: Acute Code(s): R33.9 - RETENTION OF URINE, UNSPECIFIED SNOMED Code(s): 613894664 (4) Fever Current Visit: Yes Status: Acute Code(s): R50.9 - FEVER, UNSPECIFIED SNOMED Code(s): 977039426
[2019-01-22] MEDS: PIPERACILLIN-TAZOBACTAM 3.375 GM in SODIUM CHLORIDE 0.9% 100 ML IVPB SCH ×2 (00:12→08:07)
[2019-01-22] MEDS: LEVOTHYROXINE 100 MCG TAB PO SCH (05:46)
[2019-01-22 05:53] VITALS: BP 143/73; PULSE 66
[2019-01-22] MEDS: SODIUM CHLORIDE 0.9% 1,000 ML IV SCH (08:07)
[2019-01-22] MEDS: LACTOBACILLUS ACIDOPH & BULGAR 1 EACH PACKET PO SCH (08:08)
[2019-01-22] MEDS: VIT A,C & E-LUTEIN-MINERALS 1 EACH TAB PO SCH (08:08)
[2019-01-22] MEDS: HYDROCORTISONE 10 MG TAB PO SCH (08:08)
[2019-01-22] MEDS: ENOXAPARIN 40 MG/0.4 ML SYRINGE SQ SCH ×2 (08:09)
--- NOTE | 2019-01-22 17:06 | P.DS ---
Providers Date of admission: 01/21/19 15:17 Attending physician: Kylah An Consults: 01/19/19 19:16 Consult Physician Routine Consulting Provider: Daniel Akins Reason/Comments: Elevated temp. UTI Do you want consulting provider notified?: Yes, Notify in am Primary care physician: Stated None Hospital Course: Diagnoses: Urinary tract infection. History of urinary retention, self cath himself for the last couple of years. He follows up with Dr. Nazario Hypertension Hypothyroidism History of Hypo-adrenalism Obesity history of prostate cancer status post radiotherapy and chronic urinary retention Hospital course: Mr. Foreman is an 83-year-old male with a past medical history of thyroid disorder, prostate cancer status post radiation, chronic urinary retention does self cath coming into the hospital with a chief complaint of generalized weakness and fevers. Patient has a recurrent urinary tract infections. Urine culture grew Enterobacter. Patient was treated initially with IV antibiotic with Zosyn and then switched to Bactrim upon discharge as per infectious disease team recommendation. Patient symptoms are significantly improved and patient denies urinary symptoms like no dysuria and no increased frequency. No suprapubic pain or tenderness. Patient states that he is back to his baseline and he is ready to go home. Home health care was ordered for him however the patient and family refused. Patient returned to his baseline and patient was cleared by infectious disease team for discharge. Patient was eager to go home by himself and he denies chest pain or dyspnea. No abdominal pain or nausea vomiting. No change in urine or bowel habits. No fever Problem list and Management plan was discussed with the patient and he verbalized understanding and acceptance. The was at bedside upon his request Patient was found stable and can discharge home and fax prognosis however he needs follow-up as an outpatient. Patient instructed to follow up with his PCP in one week and he agrees to make appointments. He does not want staff to make appointments for him. Patient already has appointment with his urologist Dr. Nazario on 01/31/2019 and the has contact information and the exact same and at home Gen: patient is a AAOx3, no distress CVS: S1-S2, RRR, no murmur Lungs: B/L CTA, no wheezing Abdomen: soft, no distention, no tenderness, positive bowel sounds Extremity: no leg edema or induration Time spent more than 35 minutes Patient Condition at Discharge: Fair Plan - Discharge Summary Discharge Rx Participant: No New Discharge Prescriptions: New Sulfamethox-Tmp 800-160Mg [Bactrim DS 800-160 mg] 1 tab PO Q12HR #20 tab Continue Hydrocortisone [Cortef] 10 mg PO DAILY@1400 Hydrocortisone [Cortef] 20 mg PO QAM Vit C/E/Zn/Coppr/Lutein/Zeaxan [Preservision Areds 2 Softgel] 1 cap PO BID L.acidoph,Paracasei, B.lactis [Probiotic] 1 cap PO DAILY Levothyroxine Sodium [Synthroid] 100 mcg PO DAILY Discharge Medication List Hydrocortisone [Cortef] 10 mg PO DAILY@1400 07/27/17 [History] Hydrocortisone [Cortef] 20 mg PO QAM 07/27/17 [History] Vit C/E/Zn/Coppr/Lutein/Zeaxan [Preservision Areds 2 Softgel] 1 cap PO BID 03/18/18 [History] L.acidoph,Paracasei, B.lactis [Probiotic] 1 cap PO DAILY 04/17/18 [History] Levothyroxine Sodium [Synthroid] 100 mcg PO DAILY 05/18/18 [History] Sulfamethox-Tmp 800-160Mg [Bactrim DS 800-160 mg] 1 tab PO Q12HR #20 tab 01/21/19 [Rx] Follow up Appointment(s)/Referral(s): Enoc Downey MD [STAFF PHYSICIAN] - 01/31/19 8:00 am (You have appointment already. Please call to confirm time and date of appointment) None,Stated [Primary Care Provider] - 1-2 days Vanessa Oneill MD [STAFF PHYSICIAN] - 1 Week Patient Instructions/Handouts: Urinary Tract Infection in Men (DC) Activity/Diet/Wound Care/Special Instructions: cardiac diet Activity is limited until you see your doctor Discharge Disposition: HOME SELF-CARE
== END 2019-01-22 14:03 | disposition home or self-care (01) | DRG 698 ==
LOC: EC 09:09 → 3NMEDONC 12:41 → 4SSUR 14:29 → 4MS4W 18:00 → OBSVTOIN 01-21 15:17
PROVIDERS: ADMIT Internal Medicine; ATTEND Internal Medicine
DX: T83.9XXA Unspecified complication of genitourinary prosthetic device, implant and graft, initial encounter (principal); A41.50 Gram-negative sepsis, unspecified; N39.0 Urinary tract infection, site not specified; E27.40 Unspecified adrenocortical insufficiency; I10 Essential (primary) hypertension; E03.9 Hypothyroidism, unspecified; R33.9 Retention of urine, unspecified; R32 Unspecified urinary incontinence; H35.30 Unspecified macular degeneration; E66.9 Obesity, unspecified; Z68.30 Body mass index [BMI] 30.0-30.9, adult; Z79.890 Hormone replacement therapy; Z79.52 Long term (current) use of systemic steroids; Z79.899 Other long term (current) drug therapy; Z85.46 Personal history of malignant neoplasm of prostate; Z92.3 Personal history of irradiation; Z87.440 Personal history of urinary (tract) infections; Z98.890 Other specified postprocedural states; Z87.891 Personal history of nicotine dependence; Z80.0 Family history of malignant neoplasm of digestive organs; Z82.3 Family history of stroke; E86.0 Dehydration; D64.9 Anemia, unspecified; I95.9 Hypotension, unspecified
CPT/HCPCS: 36415; 71046; 80048; 80053; 81001; 82150; 82533; 82550; 82553; 83605; 83690; 83735; 84146; 84439; 84484; 85025; 87040; 87077; 87086; 87186; 93005; 96361; 96374; 96375; 99285

== ENCOUNTER → 2019-01-22 | Outpatient (CLI) | payer MEDICARE, BC ==
[2019-01-22 19:37] LABS: Albumin 3.6 g/dL (3.80-4.90); Albumin/Globulin Ratio 1.71 (1.60-3.17); Anion Gap 10.2 mmol/L (4.00-12.00); Calcium 8.3 mg/dL (8.7-10.3); Carbon Dioxide 23.8 mmol/L (21.6-31.8); Globulin 2.1 g/dL (1.6-3.3); Potassium 4.9 mmol/L (3.5-5.5); Total Bilirubin 0.2 mg/dL (0.3-1.2); Total Protein 5.7 g/dL (6.2-8.2)
[2019-01-22 19:52] LABS: T4, Free (Free Thyroxine) 0.9 ng/dL (0.80-1.80)
== END ==
LOC: LABWHC1 13:43
PROVIDERS: ATTEND Internal Medicine Endocrinology, Diabetes & Metabolism
DX: D35.2 Benign neoplasm of pituitary gland (principal)
CPT/HCPCS: 36415; 80053; 84146; 84439

== ENCOUNTER → 2019-02-06 | Outpatient (CLI) | payer MEDICARE, BC ==
--- NOTE | 2019-02-06 13:18 | US ---
EXAMINATION TYPE: US kidneys/renal and bladder DATE OF EXAM: 02/06/2019 COMPARISON: US, CT CLINICAL HISTORY: N19 RENAL FAILURE. Renal failure per order. EXAM MEASUREMENTS: Right Kidney: 9.2 x 5.7 x 5.7 cm Left Kidney: 10.8 x 6.0 x 6.1 cm Post Void Residual Volume: Not performed Right Kidney: Moderate right hydronephrosis Left Kidney: Persistent mild hydronephrosis. Bladder: appears anechoic as suboptimally distended Bilateral Jets seen: no There is cortical renal thinning of both kidneys. No nephrolithiasis is seen. IMPRESSION: 1. Moderate right and [id number] left hydronephrosis. Hydronephrosis is new on the right and pe rsistent on the left from the prior exam. 2. Sonographic sequela of medical renal disease or chronic hydronephrosis with cortical renal thinnin g bilaterally.
== END | disposition home or self-care (01) ==
LOC: RADUSWWP 10:10
PROVIDERS: ATTEND Urology
DX: N13.30 Unspecified hydronephrosis (principal); N19 Unspecified kidney failure
CPT/HCPCS: 76770

== ENCOUNTER 2019-02-25 10:02 | Inpatient (IN) | payer MEDICARE, BC ==
[2019-02-25] MEDS ORDERED: ACETAMINOPHEN TAB 325 MG TAB PO STA (10:18)
--- NOTE | 2019-02-25 10:29 | ED ---
Altered Mental Status HPI - General Chief Complaint: Altered Mental Status Stated Complaint: Altered Mental Status Time Seen by Provider: 02/25/19 10:18 Source: patient, EMS Mode of arrival: EMS Limitations: altered mental status - History of Present Illness Initial Comments: 83-year-old male with history of chronic urinary retention, urosepsis, frequent urinary tract infections presenting by EMS for altered mental status. I spoke with patient's were obtained mostly patient's history given patient was a poor historian. Patient has no complaints on arrival he ischemia responsive however is alert and oriented to place but not self or time. says patient frequently has urinary tract infections in soft cast. She states yesterday his with the most today and weak she states she did drink water but would not eat very much and was beginning to appear confused. She states the symptoms worsened today and he seemed like he was very confused she called EMS for transportation to the emergency department for evaluation. Patient states he d id not have a bowel movement yesterday. She states she has had history of constipation. She states he had a recent ultrasound on February 06 which revealed hydronephrosis he was told by Dr. Self increases catheterization to 4 times a day. Upon arrival patient was febrile. Blood pressure within normal limits. HR WNL. Patient did no appears drowsy, no focal deficits noted. Speech clear, keenly responsive. - Related Data Home Medications Medication Instructions Recorded Confirmed Hydrocortisone [Cortef] 10 mg PO DAILY@1400 07/27/17 02/25/19 Hydrocortisone [Cortef] 20 mg PO QAM 07/27/17 02/25/19 Vit C/E/Zn/Coppr/Lutein/Zeaxan 1 cap PO BID 03/18/18 02/25/19 [Preservision Areds 2 Softgel] L.acidoph,Paracasei, B.lactis 1 cap PO DAILY 04/17/18 02/25/19 [Probiotic] Levothyroxine Sodium [Synthroid] 125 mcg PO DAILY 02/25/19 02/25/19 Allergies Allergy/AdvReac Type Severity Reaction Status Date / Time No Known Allergies Allergy Verified 02/25/19 10:16 Review of Systems ROS Statement: Those systems with pertinent positive or pertinent negative responses have been documented in the HPI. ROS Other: All systems not noted in ROS Statement are negative. Past Medical History Past Medical History: Cancer, Eye Disorder, Memory Impairment, Thyroid Disorder Additional Past Medical History / Comment(s): Prostate CA with radiation/urinary retention/self caths at 9pm and midnight and voids during daytime hours/ occasional incontinence of urine, frequent UTIs and has confusion with UTIs, stable pituitary mass, hyponatremia, chronic anemia, bilateral macular degeneration, hypothyroidism, pt's legs are cold all the time. History of Any Multi-Drug Resistant Organisms: Unobtainable, Other MDRO Past Surgical History: Adenoidectomy, Tonsillectomy Additional Past Surgical History / Comment(s): EGD/colonoscopy. Past Anesthesia/Blood Transfusion Reactions: No Reported Reaction Past Psychological History: No Psychological Hx Reported Smoking Status: Former smoker Past Alcohol Use History: None Reported Past Drug Use History: None Reported - Past Family History Father Family Medical History: Cancer Additional Family Medical History / Comment(s): Colon CA, at 74. Mother Family Medical History: No Reported History, CVA/TIA Additional Family Medical History / Comment(s): Mother of a CVA at the age of 83yrs. General Exam - General Exam Comments Initial Comments: General: The patient is awake and alert, in no distress, smiling, keenly responsive Eye: +3 mm pupils are equal, round and reactive to light, extra-ocular movements are intact. No nystagmus. There is normal conjunctiva bilaterally. No signs of icterus. Ears, nose, mouth and throat: There are moist mucous membranes and no oral lesions. Neck: The neck is supple, there is no tenderness or JVD. Cardiovascular: There is a regular rate and rhythm. No murmur, rub or gallop is appreciated. Respiratory: Lungs are clear to auscultation, respirations are non-labored, breath sounds are equal. No wheezes, stridor, rales, or rhonchi. Gastrointestinal: Soft, non-distended, non-tender abdomen without masses or organomegaly noted. There is no rebound or guarding present. No CVA tenderness. Bowel sounds are unremarkable. Musculoskeletal: Normal ROM, no tenderness. Strength 5/5. Sensation intact. Radial and DP pulses equal bilaterally 2+. Neurological: A&O x1. CN II-XII intact grossly, There are no obvious motor or sensory deficits. Coordination appears grossly intact. Speech is normal. Skin: Skin is warm and dry and no rashes or lesions are noted. Psychiatric: Cooperative, patient Limitations: altered mental status Course Vital Signs 02/25/19 02/25/19 02/25/19 10:08 11:43 12:14 Temperature 103 F H Pulse Rate 77 74 76 Respiratory 18 16 16 Rate Blood Pressure 117/72 146/68 143/70 O2 Sat by Pulse 95 96 Oximetry 02/25/19 12:52 Temperature 99.7 F H Pulse Rate 80 Respiratory 18 Rate Blood Pressure 106/56 O2 Sat by Pulse 93 L Oximetry Medical Decision Making - Medical Decision Making 83-year-old male presenting for altered mental status brought by EMS. Patient febrile upon arrival. Heart rate within normal limits. Blood pressure normalized. She has no signs of distress. No evidence of focal deficits or decreased mentation. Patient is keenly responsive. However he is only alert and oriented to place. He does not know the year or his name. No focal neurological deficits on examination. Patient has no tenderness to patient the abdomen. There is no noted skin abnormalities. No erythema. Patient lungs are clear to auscultation. Chest x-ray within normal limits. There is findings on the chest x-ray concerning for asbestos exposure. Family states she also thought that he may be constipated so KUB was obtained. This revealed no overt signs of constipation nor obstructive process. She was given Tylenol for the fever as well as IV fluids. Urinalysis reveal findings consistent with UTI. Patient was started on ceftriaxone after reviewing previous urine culture sensitivity. CT of the brain was obtained given family stating the patient's behavior seemed somewhat different than his typical urinary tract infections. CT negative for acute intracranial process. Patient has no complaints. Laboratory studies revealed a leukocytosis. Lactic acid within normal limits. I discussed the case attending provider Dr. Villegas who spoke with the admitting provider Dr. Gunn. Patient was accepted. It remains a hold in the emergency department until bed is available. Patient care will be continued by admitting provider. - Lab Data Result diagrams: 02/25/19 10:30 02/25/19 10:30 Lab Results 02/25/19 02/25/19 02/25/19 Range/Units 10:30 10:30 10:30 WBC 8.2 (3.8-10.6) k/uL RBC 3.62 L (4.30-5.90) m/uL Hgb 11.7 L (13.0-17.5) gm/dL Hct 35.7 L (39.0-53.0) % MCV 98.5 (80.0-100.0) fL MCH 32.4 (25.0-35.0) pg MCHC 32.9 (31.0-37.0) g/dL RDW 13.5 (11.5-15.5) % Plt Count 154 (150-450) k/uL Neutrophils % 75 % Lymphocytes % 15 % Monocytes % 7 % Eosinophils % 1 % Basophils % 0 % Neutrophils # 6.2 (1.3-7.7) k/uL Lymphocytes # 1.3 (1.0-4.8) k/uL Monocytes # 0.6 (0-1.0) k/uL Eosinophils # 0.1 (0-0.7) k/uL Basophils # 0.0 (0-0.2) k/uL PT (9.0-12.0) sec INR (<1.2) APTT (22.0-30.0) sec Sodium 136 L (137-145) mmol/L Potassium 4.4 (3.5-5.1) mmol/L Chloride 101 (98-107) mmol/L Carbon Dioxide 27 (22-30) mmol/L Anion Gap 8 mmol/L BUN 18 (9-20) mg/dL Creatinine 1.17 (0.66-1.25) mg/dL Est GFR (CKD-EPI)AfAm 65 (>60 ml/min/1.73 sqM) Est GFR (CKD-EPI)NonAf 57 (>60 ml/min/1.73 sqM) Glucose 87 (74-99) mg/dL Plasma Lactic Acid [place] (0.7-2.0) mmol/L Calcium 8.4 (8.4-10.2) mg/dL Total Bilirubin 0.8 (0.2-1.3) mg/dL AST 21 (17-59) U/L ALT 26 (21-72) U/L Alkaline Phosphatase 61 (38-126) U/L Creatine Kinase 23 L (55-170) U/L Troponin I (0.000-0.034) ng/mL Total Protein 6.6 (6.3-8.2) g/dL Albumin 3.6 (3.5-5.0) g/dL Urine Color Light Yellow Urine Appearance Cloudy (Clear) Urine pH 6.0 (5.0-8.0) Ur Specific [place] 1.012 (1.001-1.035) Urine Protein 1+ H (Negative) Urine Glucose (UA) Negative (Negative) Urine Ketones Negative (Negative) Urine Blood Small H (Negative) Urine Nitrite Positive (Negative) Urine Bilirubin Negative (Negative) Urine Urobilinogen <2.0 (<2.0) mg/dL Ur Leukocyte Esterase Large H (Negative) Urine RBC 17 H (0-5) /hpf Urine WBC >182 H (0-5) /hpf Urine WBC Clumps Occasional H (None) /hpf Urine Bacteria Few H (None) /hpf Urine Mucus Rare H (None) /hpf 02/25/19 02/25/19 02/25/19 Range/Units 10:30 10:30 10:30 WBC (3.8-10.6) k/uL RBC (4.30-5.90) m/uL Hgb (13.0-17.5) gm/dL Hct (39.0-53.0) % MCV (80.0-100.0) fL MCH (25.0-35.0) pg MCHC (31.0-37.0) g/dL RDW (11.5-15.5) % Plt Count (150-450) k/uL Neutrophils % % Lymphocytes % % Monocytes % % Eosinophils % % Basophils % % Neutrophils # (1.3-7.7) k/uL Lymphocytes # (1.0-4.8) k/uL Monocytes # (0-1.0) k/uL Eosinophils # (0-0.7) k/uL Basophils # (0-0.2) k/uL PT 11.4 (9.0-12.0) sec INR 1.1 (<1.2) APTT 26.4 (22.0-30.0) sec Sodium (137-145) mmol/L Potassium (3.5-5.1) mmol/L Chloride (98-107) mmol/L Carbon Dioxide (22-30) mmol/L Anion Gap mmol/L BUN (9-20) mg/dL Creatinine (0.66-1.25) mg/dL Est GFR (CKD-EPI)AfAm (>60 ml/min/1.73 sqM) Est GFR (CKD-EPI)NonAf (>60 ml/min/1.73 sqM) Glucose (74-99) mg/dL Plasma Lactic Acid [place] 1.2 (0.7-2.0) mmol/L Calcium (8.4-10.2) mg/dL Total Bilirubin (0.2-1.3) mg/dL AST (17-59) U/L ALT (21-72) U/L Alkaline Phosphatase (38-126) U/L Creatine Kinase (55-170) U/L Troponin I <0.012 (0.000-0.034) ng/mL Total Protein (6.3-8.2) g/dL Albumin (3.5-5.0) g/dL Urine Color Urine Appearance (Clear) Urine pH (5.0-8.0) Ur Specific [place] (1.001-1.035) Urine Protein (Negative) Urine Glucose (UA) (Negative) Urine Ketones (Negative) Urine Blood (Negative) Urine Nitrite (Negative) Urine Bilirubin (Negative) Urine Urobilinogen (<2.0) mg/dL Ur Leukocyte Esterase (Negative) Urine RBC (0-5) /hpf Urine WBC (0-5) /hpf Urine WBC Clumps (None) /hpf Urine Bacteria (None) /hpf Urine Mucus (None) /hpf - EKG Data EKG Comments: Ventricular rate 74 bpm, GA interval 154 ms, QRS duration 134 ms, QT/QTC 414/459 ms. This is normal sinus rhythm. Left axis noted. With a right bundle branch block. This is present on review of previous EKG in January 2019. No ST elevation depression.Skin change from previous. Disposition Clinical Impression: UTI (urinary tract infection), Altered mental status, Fever Disposition: ADMITTED IP TO THIS [facility] Condition: Serious Is patient prescribed a controlled substance at d/c from ED?: No Time of Disposition: 11:51 Decision to Admit Reason: Admit from EC Decision Date: 02/25/19 Decision Time: 11:51
[2019-02-25 11:05] LABS: INR 1.1 (<1.2); Partial Thromboplastin Time 26.4 sec (22.0-30.0); Prothrombin Time 11.4 sec (9.0-12.0)
[2019-02-25 11:14] LABS: Albumin 3.6 g/dL (3.5-5.0); Calcium 8.4 mg/dL (8.4-10.2); Potassium 4.4 mmol/L (3.5-5.1); Total Bilirubin 0.8 mg/dL (0.2-1.3); Total Protein 6.6 g/dL (6.3-8.2)
[2019-02-25 11:16] LABS: Appearance,Urine Cloudy (Clear); Bacteria,Urine Few /hpf; Bilirubin,Urine Negative (Negative); Blood,Urine Small (Negative); Color,Urine Light Yellow; Glucose,Urine (UA) Negative (Negative); Ketones,Urine Negative (Negative); Leukocyte Esterase,Urine Large (Negative); Mucus,Urine Rare /hpf; Nitrite,Urine Positive (Negative); Protein,Urine 1+ (Negative); RBC,Urine 17 /hpf (0-5); Specific Gravity,Urine 1.012 (1.001-1.035); Urobilinogen,Urine <2.0 mg/dL (<2.0); WBC,Urine >182 /hpf (0-5)
--- NOTE | 2019-02-25 11:16 | XR ---
KUB HISTORY: Constipation Frontal KUB on 3 images .Comparison to prior exam 10/15/2017 Sclerosis at the pubic symphysis is stable and chronic. Degenerative disc changes are present in the visualized spine. No evident bowel obstruction or pneumoperitoneum, no pathologic calcification is se en. IMPRESSION: No acute abnormality
--- NOTE | 2019-02-25 11:20 | XR ---
EXAMINATION TYPE: XR chest 2V DATE OF EXAM: 02/25/2019 COMPARISON: Prior chest x-ray 01/19/2018 HISTORY: Altered mental status, fever TECHNIQUE: Frontal and lateral views of the chest are obtained. FINDINGS: There are overlying cardiac leads. There may be a spinal curvature. There is no focal air space opacity, pleural effusion, or pneumothorax seen. Calcified pleural plaques right upper lobe aga in noted. The cardiac silhouette size is within normal limits. The osseous structures are intact. IMPRESSION: No acute cardiopulmonary process. Correlate for asbestos related disease.
[2019-02-25 11:25] LABS: Basophils % (A) 0 %; Eosinophils # (A) 0.1 k/uL (0-0.7); Eosinophils % (A) 1 %; HCT 35.7 % (39.0-53.0); HGB 11.7 gm/dL (13.0-17.5); Lymphocytes # (A) 1.3 k/uL (1.0-4.8); Lymphocytes % (A) 15 %; MCH 32.4 pg (25.0-35.0); MCHC 32.9 g/dL (31.0-37.0); MCV 98.5 fL (80.0-100.0); Mean Platelet Volume 6.8; Monocytes # (A) 0.6 k/uL (0-1.0); Monocytes % (A) 7 %; Neutrophils # (A) 6.2 k/uL (1.3-7.7); Neutrophils % (A) 75 %; Platelet Count 154 k/uL (150-450); RBC 3.62 m/uL (4.30-5.90); RDW 13.5 % (11.5-15.5); WBC 8.2 k/uL (3.8-10.6)
[2019-02-25] MEDS: SODIUM CHLORIDE 0.9% 500 ML 500 ML IV SCH (11:40)
--- NOTE | 2019-02-25 11:44 | CT ---
EXAMINATION TYPE: CT brain wo con DATE OF EXAM: 02/25/2019 COMPARISON: 05/20/2018 HISTORY: Altered mental status. CT DLP: 1146.[address] of the brain was performed. There is prominence of the ventricular system relative to the sulci overlying the cerebral convexitie s and this does raise the possibility of normal pressure hydrocephalus. There is no evidence for intracranial hemorrhage or sulcal effacement. There is decreased attenuation about the periventricular white matter and deep white matter of both c erebral hemispheres, compatible with chronic small vessel ischemia. Differential diagnosis does inclu de demyelination. Pituitary macroadenoma redemonstrated. Osseous calvarium is intact. If symptoms persist consider MRI. IMPRESSION: 1. Correlate for normal pressure hydrocephalus. 2. Stable pituitary macroadenoma.
[2019-02-25] MEDS ORDERED: SODIUM CHLORIDE 0.9% 500 ML 500 ML IV ONE (11:50)
[2019-02-25] MEDS ORDERED: ACETAMINOPHEN TAB 325 MG TAB PO PRN (11:51)
[2019-02-25] MEDS ORDERED: NALOXONE 0.4 MG/ML 1 ML VIAL IV PRN (11:51)
[2019-02-25] MEDS ORDERED: IBUPROFEN 400 MG TAB PO PRN (11:51)
[2019-02-25] MEDS: SODIUM CHLORIDE 0.9% 1,000 ML IV SCH ×2 (12:45→21:02)
--- NOTE | 2019-02-25 19:12 | P.HPIM ---
History of Present Illness H&P Date: 02/25/19 Chief Complaint: Altered mental status Mr. Foreman is an 83-year-old male with a past medical history of thyroid disorder, prostate cancer status post radiation, chronic urinary retention does self cath was brought to the hospital by his family due to generalized weakness, lethargy and confusion. Patient became so weak that he could not stand up by himself and is a not able to do straight cath patient by himself as well. Patient has been having worsening symptoms since yesterday. T-max was 100.3 on admission. He did have bowel movement for the past 2 days also. Patient has been sweating and tired. Patient has a recurrent urinary tract infections. Denied any focal weakness. Previous urinary tract infection with Enterobacter aerogenes is At the time of admission patient had a urinalysis that was positive for leukocyte esterase and nitrates. He was started on ceftriaxone in the emergency department and admitted to the floors. he had a recent ultrasound on February 06 which revealed hydronephrosis he was told by Dr. Self increases catheterization to 4 times a day. On reviewing the patient's past urine cultures he grew E. coli, Klebsiella, Enterobacter cloacae and Enterobacter aerogenes. Patient was discharged on Bactrim at the time. Previous admission in January 2019., infectious disease Dr. Akins was consulted. Patient denies having any other active complaints. Denies having any headaches, blurring of vision or slurring of speech. No neck stiffness. No chest pain or palpitations. No cough or difficulty breathing. No apparent pain nausea vomiting or diarrhea. No lower extremity swelling. No orthopnea or PND. Patient is very lethargic but awake and oriented. Complete history could not be obtained from the patient. Most of the history was taken from his family at bedside. Review of Systems Constitutional: Patient does have sweating and chills. . Generalized weakness and lethargy. Abdomen: Patient denied nausea vomiting and diarrhea and abdominal pain. Constipation. Cardiovascular: Patient denies any chest pain or short of breath no palpitations. Respiratory: patient denied any cough is from production. No shortness of breath Neurologic: Patient denied any numbness or tingling headache. Musculoskeletal: Patient denies any complaints of joint swelling or deformity. Complete review of systems could not be obtained from the patient. Past Medical History Past Medical History: Cancer, Eye Disorder, Memory Impairment, Thyroid Disorder Additional Past Medical History / Comment(s): Prostate CA with radiation/urinary retention/self caths at 9pm and midnight and voids during daytime hours/ occa sional incontinence of urine, frequent UTIs and has confusion with UTIs, stable pituitary mass, hyponatremia, chronic anemia, bilateral macular degeneration, hypothyroidism, pt's legs are cold all the time. History of Any Multi-Drug Resistant Organisms: Unobtainable, Other MDRO Past Surgical History: Adenoidectomy, Tonsillectomy Additional Past Surgical History / Comment(s): EGD/colonoscopy. Past Anesthesia/Blood Transfusion Reactions: No Reported Reaction Past Psychological History: No Psychological Hx Reported Smoking Status: Former smoker Past Alcohol Use History: None Reported Past Drug Use History: None Reported - Past Family History Father Family Medical History: Cancer Additional Family Medical History / Comment(s): Colon CA, at 74. Mother Family Medical History: No Reported History, CVA/TIA Additional Family Medical History / Comment(s): Mother of a CVA at the age of 83yrs. Medications and Allergies Home Medications Medication Instructions Recorded Confirmed Type Hydrocortisone [Cortef] 10 mg PO DAILY@1400 07/27/17 02/25/19 History Hydrocortisone [Cortef] 20 mg PO QAM 07/27/17 02/25/19 History Vit C/E/Zn/Coppr/Lutein/Zeaxan 1 cap PO BID 03/18/18 02/25/19 History [Preservision Areds 2 Softgel] L.acidoph,Paracasei, B.lactis 1 cap PO DAILY 04/17/18 02/25/19 History [Probiotic] Levothyroxine Sodium [Synthroid] 125 mcg PO DAILY 02/25/19 02/25/19 History Allergies Allergy/AdvReac Type Severity Reaction Status Date / Time No Known Allergies Allergy Verified 02/25/19 10:16 Physical Exam Vitals: Vital Signs Temp Pulse Pulse Resp BP BP Pulse Ox 02/25/19 18:16 98.5 F 51 L 20 175/80 100 02/25/19 16:52 67 18 104/69 96 02/25/19 14:00 77 18 97 02/25/19 13:00 16 93 L 02/25/19 12:52 99.7 F H 80 18 106/56 93 L 02/25/19 12:14 76 16 143/70 02/25/19 11:43 74 16 146/68 96 02/25/19 10:08 103 F H 77 18 117/72 95 Intake and Output 02/25/19 02/25/19 02/25/19 06:59 14:59 22:59 Output Total 150 Balance -150 Output: Urine 150 Straight 150 Other: Weight 90.718 kg PHYSICAL EXAMINATION: Patient is lying in the bed comfortably, no acute distress, awake alert and oriented.. HEENT: Normocephalic. Neck is supple. Pupils reactive. Nostrils clear. Oral cavity is moist. Ears reveal no drainage. Neck reveals no JVD, carotid bruits, or thyromegaly. CHEST EXAMINATION: Trachea is central. Symmetrical expansion. Lung frey clear to auscultation and percussion. CARDIAC: Normal S1, S2 with no gallops. No murmurs ABDOMEN: Soft. Bowel sounds normal. No organomegaly. No abdominal bruits. Extremities: reveal no edema. No clubbing or cyanosis Neurologically awake, alert, oriented x3 with well-coordinated movements. No focal deficits noted Skin: No rash or skin lesions. Psychiatric: Coperative. Nonsuicidal Musculoskeletal: No joint swelling or deformity. Normal range of motion. Results CBC & Chem 7: 02/25/19 10:30 02/25/19 10:30 Labs: Abnormal Lab Results - Last 24 Hours (Table) 02/25/19 02/25/19 02/25/19 Range/Units 10:30 10:30 10:30 RBC 3.62 L (4.30-5.90) m/uL Hgb 11.7 L (13.0-17.5) gm/dL Hct 35.7 L (39.0-53.0) % Sodium 136 L (137-145) mmol/L Creatine Kinase 23 L (55-170) U/L Urine Protein 1+ H (Negative) Urine Blood Small H (Negative) Ur Leukocyte Esterase Large H (Negative) Urine RBC 17 H (0-5) /hpf Urine WBC >182 H (0-5) /hpf Urine WBC Clumps Occasional H (None) /hpf Urine Bacteria Few H (None) /hpf Urine Mucus Rare H (None) /hpf Microbiology - Last 24 Hours (Table) 02/25/19 10:30 Urine Culture - Preliminary Urine,Catheterized Thrombosis Risk Factor Assmnt - Choose All That Apply Any of the Below Risk Factors Present?: Yes Each Factor Represents 1 point: Obesity (BMI >25) Other Risk Factors: Yes Each Risk Factor Represents 2 Points: Malignancy Each Risk Factor Represents 3 Points: Age 75 years or older Other congenital or acquired thrombophilia - If yes, enter type in comment: No Thrombosis Risk Factor Assessment Total Risk Factor Score: 6 Thrombosis Risk Factor Assessment Level: High Risk Assessment and Plan Assessment: Acute Urinary tract infection - patient has history of multiple UTIs- straight catheterization at home Hypoadrenalism Hypothyroidism Obesity with BMI of 30 History of prostate cancer status post radiation therapy and chronic urinary retention Constipation DVT prophylaxis with heparin subcu Plan: Patient will be converted on antibiotics in the form of ceftriaxone. Previous cultures grew Enterobacter aerogenes. Patient has really started on his home medications and stool softeners will be added. Continue with IV hydration. Follow up urine culture report. ID consult has been obtained. Further recommendations to follow depending on the progress of the patient. Care plan has been updated with the patient and his family at bedside. Time with Patient: Greater than 30
[2019-02-25] MEDS: DOCUSATE 100 MG CAP PO SCH (19:58)
[2019-02-25] MEDS: LACTULOSE 20 GM/30 ML CUP PO SCH (19:58)
[2019-02-25] MEDS: HEPARIN SODIUM,PORCINE 5,000 UNIT/ML 1 ML VIAL SQ SCH (19:58)
[2019-02-25] MEDS: VIT A,C & E-LUTEIN-MINERALS 1 EACH TAB PO SCH (19:58)
[2019-02-26] MEDS ORDERED: ACETAMINOPHEN TAB 325 MG TAB ONE
[2019-02-26] MEDS: LEVOTHYROXINE 125 MCG TAB PO SCH (06:06)
[2019-02-26] MEDS: HYDROCORTISONE 20 MG TAB PO SCH (07:34)
[2019-02-26] MEDS: LACTULOSE 20 GM/30 ML CUP PO SCH ×2 (07:34→21:56)
[2019-02-26] MEDS: HEPARIN SODIUM,PORCINE 5,000 UNIT/ML 1 ML VIAL SQ SCH ×2 (07:34→15:07)
[2019-02-26] MEDS: VIT A,C & E-LUTEIN-MINERALS 1 EACH TAB PO SCH ×2 (07:34→21:56)
[2019-02-26] MEDS: DOCUSATE 100 MG CAP PO SCH ×2 (07:34→21:57)
[2019-02-26] MEDS: LACTOBACILLUS ACIDOPH & BULGAR 1 EACH PACKET PO SCH (07:34)
[2019-02-26] MEDS: SODIUM CHLORIDE 0.9% 1,000 ML IV SCH ×2 (07:35→17:53)
[2019-02-26 11:40] LABS: Calcium 7.7 mg/dL (8.4-10.2)
[2019-02-26 11:44] LABS: Basophils % (A) 0 %; Eosinophils # (A) 0.1 k/uL (0-0.7); Eosinophils % (A) 1 %; HCT 33.7 % (39.0-53.0); HGB 10.8 gm/dL (13.0-17.5); Lymphocytes # (A) 0.8 k/uL (1.0-4.8); Lymphocytes % (A) 13 %; MCH 32.2 pg (25.0-35.0); MCHC 32.1 g/dL (31.0-37.0); MCV 100.3 fL (80.0-100.0); Macrocytosis Slight; Mean Platelet Volume 6.9; Monocytes # (A) 0.5 k/uL (0-1.0); Monocytes % (A) 8 %; Neutrophils # (A) 4.4 k/uL (1.3-7.7); Neutrophils % (A) 76 %; Platelet Count 144 k/uL (150-450); RBC 3.36 m/uL (4.30-5.90); RDW 14.2 % (11.5-15.5); WBC 5.8 k/uL (3.8-10.6)
[2019-02-26] MEDS: HYDROCORTISONE 10 MG TAB PO SCH (13:23)
--- NOTE | 2019-02-26 23:42 | P.CONS ---
History of Present Illness - Reason for Consult Consult date: 02/26/19 - Chief Complaint Altered mental status - History of Present Illness 83-year-old male well-known to the infectious disease service for as many hospitalizations and outpatient visits regarding his frequent urinary tract infections. Is noted he has chronic urinary retention on the basis of his prior prostate cancer and radiation therapy. He follows with urology. He was recently hospitalized 3 had difficulty with some retention and did have a short course of a Black catheter. However after an office procedure he has been down to just twice a day catheterization has been doing well with low volumes and no infections as of late. The patient had a sudden acute change of status co nsistent with his pattern of prior urinary infections. He was brought to hospital and has evidence of a urinary tract infection. Given his significant polymicrobial infections in the past Zosyn has been initiated. The patient is feeling considerably better at this point in time and cultures are pending. He has tolerated his diet without nausea or emesis. Denies other acute changes but is pleasantly confused. Review of Systems at home the patient had fever and chills HEENT:Denies headache or acute visual change. Denies sinus or mouth discomforts. Denies neck stiffness or pain. Denies significant oral cavity pain. Denies difficulty on swallowing. Lungs: Denies significant shortness of breath, cough, sputum production, or hemoptysis. Cardiovascular: Denies significant shortness of breath, chest pain, chest wall pain, orthopnea, dyspnea on exertion, syncope Gastrointestinal:Denies nausea, vomiting, diarrhea, constipation, hematemesis, melena, hematochezia. No no significant change of bowel habit noticed. Musculoskeletal: denies significant myalgias or arthralgias. No new joint swelling. Denies new back pain. Skin: Denies new rash or lesions. No new ulcers or wounds are related.. Neuro: Denies headache or visual change. generalized weakness at admission Psychiatric:Denies anxiety or depression. Endocrine: Patient has trouble with fatigue weight is stable Past Medical History Past Medical History: Cancer, Eye Disorder, Memory Impairment, Thyroid Disorder Additional Past Medical History / Comment(s): Prostate CA with radiation/urinary retention/self caths at 9pm and midnight and voids during daytime hours/ occasional incontinence of urine, frequent UTIs and has confusion with UTIs, stable pituitary mass, hyponatremia, chronic anemia, bilateral macular degen eration, hypothyroidism, pt's legs are cold all the time. History of Any Multi-Drug Resistant Organisms: Unobtainable, Other MDRO Past Surgical History: Adenoidectomy, Tonsillectomy Additional Past Surgical History / Comment(s): EGD/colonoscopy. Past Anesthesia/Blood Transfusion Reactions: No Reported Reaction Past Psychological History: No Psychological Hx Reported Additional Psychological History / Comment(s): and lives in the family home. 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 No international travel. No current animal exposures. Pt has a cane, walker and 3 wheeled electric scooter. He drives short distances. His spouse drives. 3 adult children live nearby and are helpful. Smoking Status: Former smoker Past Alcohol Use History: None Reported Past Drug Use History: None Reported - Past Family History Father Family Medical History: Cancer Additional Family Medical History / Comment(s): Colon CA, at 74. Mother Family Medical History: No Reported History, CVA/TIA Additional Family Medical History / Comment(s): Mother of a CVA at the age of 83yrs. Medications and Allergies Home Medications and Allergies Comment(s): Current Medications Acetaminophen (Tylenol Tab) 650 mg PO Q6HR PRN PRN Reason: Mild Pain or Fever > 100.5 Artificial Tears (Artificial Tear Drops) 1 drops BOTH EYES QID PRN PRN Reason: Dry Eye(s) Docusate Sodium (Colace) 100 mg PO BID [facility] Last Admin: 02/26/19 21:57 Dose: 100 mg Documented by: Heparin Sodium (Porcine) (Heparin) 5,000 unit SQ Q8HR [facility] Last Admin: 02/26/19 15:07 Dose: 5,000 unit Documented by: Hydrocortisone (Cortef) 10 mg PO DAILY@1400 [facility] Last Admin: 02/26/19 13:23 Dose: 10 mg Documented by: Hydrocortisone (Cortef) 20 mg PO QAM [facility] Last Admin: 02/26/19 07:34 Dose: 20 mg Documented by: Sodium Chloride (Saline 0.9%) 1,000 mls @ 100 mls/hr IV .Q10H [facility] Last Admin: 02/26/19 17:53 Dose: 100 mls/hr Documented by: Ceftriaxone Sodium 1 gm/ (Sodium Chloride) 50 mls @ 100 mls/hr IVPB Q24HR [facility] Last Admin: 02/26/19 07:33 Dose: 100 mls/hr Documented by: Ibuprofen (Motrin) 400 mg PO Q6HR PRN PRN Reason: Mild Pain or Fever > 100.5 Lactobacillus Acidoph/Bulgaricus (Lactinex) 1 each PO DAILY [facility] Last Admin: 02/26/19 07:34 Dose: 1 each Documented by: Lactulose (Cephulac) 20 gm PO BID [facility] Last Admin: 02/26/19 21:56 Dose: 20 gm Documented by: Levothyroxine Sodium (Synthroid) 125 mcg PO DAILY@0630 [facility] Last Admin: 02/26/19 06:06 Dose: 125 mcg Documented by: Multivitamins/Minerals (Ivite) 1 each PO BID [facility] Last Admin: 02/26/19 21:56 Dose: 1 each Documented by: Naloxone HCl (Narcan) 0.2 mg IV Q2M PRN PRN Reason: Opioid Reversal Home Medications Medication Instructions Recorded Confirmed Type Hydrocortisone [Cortef] 10 mg PO DAILY@1400 07/27/17 02/25/19 History Hydrocortisone [Cortef] 20 mg PO QAM 07/27/17 02/25/19 History Vit C/E/Zn/Coppr/Lutein/Zeaxan 1 cap PO BID 03/18/18 02/25/19 History [Preservision Areds 2 Softgel] L.acidoph,Paracasei, B.lactis 1 cap PO DAILY 04/17/18 02/25/19 History [Probiotic] Levothyroxine Sodium [Synthroid] 125 mcg PO DAILY 02/25/19 02/25/19 History Allergies Allergy/AdvReac Type Severity Reaction Status Date / Time No Known Allergies Allergy Verified 02/25/19 10:16 Physical Exam Vitals: Vital Signs Temp Pulse Resp BP Pulse Ox 02/26/19 20:56 98.4 F 67 20 144/71 96 02/26/19 12:54 98.1 F 71 16 127/70 96 02/26/19 05:00 98.3 F 72 18 109/61 99 02/26/19 02:00 100.0 F H 02/26/19 00:00 103.0 F H 88 150/75 96 Intake and Output 02/26/19 02/26/19 02/27/19 14:59 22:59 06:59 Intake Total 540 540 Balance 540 540 Intake: Oral 540 540 Other: Voiding Method Diaper Diaper Incontinent Incontinent # Voids 1 3 # Bowel Movements 1 HEENT: Anicteric conjunctiva are pink and moist nasal mucosa grossly intact without significant lesions, there is no thrush. Neck: The neck is supple without significant lymphadenopathy or thyromegaly. Lungs: Good bilateral air entry without significant crackles or wheezing. There is no significant bronchial sounds. There is no egophony or dullness. Heart: Regular rate and rhythm with an audible S1-S2, no S3 no S4. There is no significant murmur click or rub, PMI was nondisplaced. Abdomen: Positive bowel sounds soft and nontender without palpable masses or organomegaly. There was no guarding or rebound. Extremities: The upper extremities have excellent pulses they are symmetric, no significant petechiae or telangiectasia. No splinter hemorrhages were noted. The lower extremities are free from significant edema. The peripheral pulses were 2+ and symmetric. Neuro: Awake alert oriented to person and knows it is in the hospital. There are no acute new gross focal sensory motor deficits. 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 Results CBC & Chem 7: 02/26/19 11:02 02/26/19 11:02 Labs: Abnormal Lab Results - Last 24 Hours (Table) 02/26/19 02/26/19 Range/Units 11:02 11:02 RBC 3.36 L (4.30-5.90) m/uL Hgb 10.8 L (13.0-17.5) gm/dL Hct 33.7 L (39.0-53.0) % MCV 100.3 H (80.0-100.0) fL Plt Count 144 L (150-450) k/uL Lymphocytes # 0.8 L (1.0-4.8) k/uL Sodium 136 L (137-145) mmol/L Glucose 107 H (74-99) mg/dL Calcium 7.7 L (8.4-10.2) mg/dL Microbiology - Last 24 Hours (Table) 02/25/19 10:30 Urine Culture - Preliminary Urine,Catheterized Gram Neg Bacilli 02/25/19 10:30 Blood Culture - Preliminary Blood No Growth after 24 hours Laboratory Results WBC 5.8 k/uL (3.8-10.6) 02/26/19 11:02 RBC 3.36 m/uL (4.30-5.90) L 02/26/19 11:02 Hgb 10.8 gm/dL (13.0-17.5) L 02/26/19 11:02 Hct 33.7 % (39.0-53.0) L 02/26/19 11:02 MCV 100.3 fL (80.0-100.0) H 02/26/19 11:02 MCH 32.2 pg (25.0-35.0) 02/26/19 11:02 MCHC 32.1 g/dL (31.0-37.0) 02/26/19 11:02 RDW 14.2 % (11.5-15.5) 02/26/19 11:02 Plt Count 144 k/uL (150-450) L 02/26/19 11:02 Neutrophils % 76 % 02/26/19 11:02 Lymphocytes % 13 % 02/26/19 11:02 Monocytes % 8 % 02/26/19 11:02 Eosinophils % 1 % 02/26/19 11:02 Basophils % 0 % 02/26/19 11:02 Neutrophils # 4.4 k/uL (1.3-7.7) 02/26/19 11:02 Lymphocytes # 0.8 k/uL (1.0-4.8) L 02/26/19 11:02 Monocytes # 0.5 k/uL (0-1.0) 02/26/19 11:02 Eosinophils # 0.1 k/uL (0-0.7) 02/26/19 11:02 Basophils # 0.0 k/uL (0-0.2) 02/26/19 11:02 Macrocytosis Slight 02/26/19 11:02 PT 11.4 sec (9.0-12.0) 02/25/19 10:30 INR 1.1 (<1.2) 02/25/19 10:30 APTT 26.4 sec (22.0-30.0) 02/25/19 10:30 Sodium 136 mmol/L (137-145) L 02/26/19 11:02 Potassium 4.0 mmol/L (3.5-5.1) 02/26/19 11:02 Chloride 105 mmol/L (98-107) 02/26/19 11:02 Carbon Dioxide 26 mmol/L (22-30) 02/26/19 11:02 Anion Gap 5 mmol/L 02/26/19 11:02 BUN 17 mg/dL (9-20) 02/26/19 11:02 Creatinine 1.03 mg/dL (0.66-1.25) 02/26/19 11:02 Est GFR (CKD-EPI)AfAm 77 (>60 ml/min/1.73 sqM) 02/26/19 11:02 Est GFR (CKD-EPI)NonAf 66 (>60 ml/min/1.73 sqM) 02/26/19 11:02 Glucose 107 mg/dL (74-99) H 02/26/19 11:02 Plasma Lactic Acid [place] 1.2 mmol/L (0.7-2.0) 02/25/19 10:30 Calcium 7.7 mg/dL (8.4-10.2) L 02/26/19 11:02 Total Bilirubin 0.8 mg/dL (0.2-1.3) 02/25/19 10:30 AST 21 U/L (17-59) 02/25/19 10:30 ALT 26 U/L (21-72) 02/25/19 10:30 Alkaline Phosphatase 61 U/L (38-126) 02/25/19 10:30 Creatine Kinase 23 U/L (55-170) L 02/25/19 10:30 Troponin I <0.012 ng/mL (0.000-0.034) 02/25/19 10:30 Total Protein 6.6 g/dL (6.3-8.2) 02/25/19 10:30 Albumin 3.6 g/dL (3.5-5.0) 02/25/19 10:30 Urine Color Light Yellow 02/25/19 10:30 Urine Appearance Cloudy (Clear) 02/25/19 10:30 Urine pH 6.0 (5.0-8.0) 02/25/19 10:30 Ur Specific [place] 1.012 (1.001-1.035) 02/25/19 10:30 Urine Protein 1+ (Negative) H 02/25/19 10:30 Urine Glucose (UA) Negative (Negative) 02/25/19 10:30 Urine Ketones Negative (Negative) 02/25/19 10:30 Urine Blood Small (Negative) H 02/25/19 10:30 Urine Nitrite Positive (Negative) 02/25/19 10:30 Urine Bilirubin Negative (Negative) 02/25/19 10:30 Urine Urobilinogen <2.0 mg/dL (<2.0) 02/25/19 10:30 Ur Leukocyte Esterase Large (Negative) H 02/25/19 10:30 Urine RBC 17 /hpf (0-5) H 02/25/19 10:30 Urine WBC >182 /hpf (0-5) H 02/25/19 10:30 Urine WBC Clumps Occasional /hpf (None) H 02/25/19 10:30 Urine Bacteria Few /hpf (None) H 02/25/19 10:30 Urine Mucus Rare /hpf (None) H 02/25/19 10:30 Microbiology 02/25/19 10:30 Urine,Catheterized Urine Culture - Preliminary Gram Neg Bacilli 02/25/19 10:30 Blood Blood Culture - Preliminary No Growth after 24 hours Assessment and Plan (1) Altered mental status Current Visit: Yes Status: Acute Code(s): R41.82 - ALTERED MENTAL STATUS, UNSPECIFIED SNOMED Code(s): 576045848 (2) Urinary tract infection Narrative/Plan: 83-year-old male presents to Hospital from home with the progressive onset of weakness and fatigue. The patient has a history of multiple prior urinary infections and with the symptoms was brought to hospital for further evaluation. Recent hospitalization did reveal evidence of some urinary retention after procedure has been doing somewhat better. Does perform straight catheterization twice a day and is having volumes not much more than 300 mL. Overall is doing well to the current onset of fever and sepsis. Gram-negative urinary tract infection with bacteremia is likely. Based on his history Zosyn his being utilized. Urine culture will help determine the plan for antibiotic therapy at discharge. No evidence of acute renal failure at this time. Patient may need to have bladder scan and straight catheterization depending on his status. Current Visit: Yes Status: Acute Code(s): N39.0 - URINARY TRACT INFECTION, SITE NOT SPECIFIED SNOMED Code(s): 14690086
--- NOTE | 2019-02-27 00:44 | P.PN ---
Subjective Progress Note Date: 02/26/19 Principal diagnosis: Acute metabolic encephalopathy secondary to infection Acute urinary tract infection Mr. Foreman is an 83-year-old male with a past medical history of thyroid disorder, prostate cancer status post radiation, chronic urinary retention does self cath was brought to the hospital by his family due to generalized weakness, lethargy and confusion. Patient became so weak that he could not stand up by himself and is a not able to do straight cath patient by himself as well. Patient has been having worsening symptoms since yesterday. T-max was 100.3 on admission. He did have bowel movement for the past 2 days also. Patient has been sweating and tired. Patient has a recurrent urinary tract infections. Denied any focal weakness. Previous urinary tract infection with Enterobacter aerogenes is At the time of admission patient had a urinalysis that was positive for leukocyte esterase and nitrates. He was started on ceftriaxone in the emergency department and admitted to the floors. he had a recent ultrasound on February 06 which revealed hydronephrosis he was told by Dr. Self increases catheterization to 4 times a day. On reviewing the patient's past urine cultures he grew E. coli, Klebsiella, Enterobacter cloacae and Enterobacter aerogenes. Patient was discharged on Bactrim at the time. Previous admission in January 2019., infectious disease Dr. Akins was consulted. Patient denies having any other active complaints. Denies having any headaches, blurring of vision or slurring of speech. No neck stiffness. No chest pain or palpitations. No cough or difficulty breathing. No apparent pain nausea vomiting or diarrhea. No lower extremity swelling. No orthopnea or PND. 02/26/2019 Patient says that he feels better today. No fever no chills overnight. Patient otherwise more awake and oriented. No complaints of chest pain or shortness of breath. Currently being continued on ceftriaxone IV. Urine culture is growing gram-negative bacilli. ID is on board. No other acute overnight issues. Next and current medications reviewed. Objective - Vital Signs Vital signs: Vital Signs Temp 98.1 F 02/26/19 12:54 Pulse 71 02/26/19 12:54 Resp 16 02/26/19 12:54 BP 127/70 02/26/19 12:54 Pulse Ox 96 02/26/19 12:54 Intake & Output 02/25/19 02/26/1919 18:59 06:59 18:59 Intake Total 540 Output Total 150 700 Balance -150 -700 540 Weight 90.718 kg Intake: Oral 540 Output: Urine 150 700 Straight 150 600 Other: Voiding Method Diaper Diaper Diaper Incontinent Incontinent Incontinent # Voids 2 1 # Bowel Movements 1 1 - Exam PHYSICAL EXAMINATION: Patient is lying in the bed comfortably, no acute distress, awake alert and oriented.. HEENT: Normocephalic. Neck is supple. Pupils reactive. Nostrils clear. Oral cavity is moist. Ears reveal no drainage. Neck reveals no JVD, carotid bruits, or thyromegaly. CHEST EXAMINATION: Trachea is central. Symmetrical expansion. Lung frey clear to auscultation and percussion. CARDIAC: Normal S1, S2 with no gallops. No murmurs ABDOMEN: Soft. Bowel sounds normal. No organomegaly. No abdominal bruits. Extremities: reveal no edema. No clubbing or cyanosis Neurologically awake, alert, oriented x3 with well-coordinated movements. No focal deficits noted Skin: No rash or skin lesions. Psychiatric: Coperative. Nonsuicidal Musculoskeletal: No joint swelling or deformity. Normal range of motion. - Labs CBC & Chem 7: 02/26/19 11:02 02/26/19 11:02 Labs: Abnormal Lab Results - Last 24 Hours (Table) 02/26/19 02/26/19 Range/Units 11:02 11:02 RBC 3.36 L (4.30-5.90) m/uL Hgb 10.8 L (13.0-17.5) gm/dL Hct 33.7 L (39.0-53.0) % MCV 100.3 H (80.0-100.0) fL Plt Count 144 L (150-450) k/uL Lymphocytes # 0.8 L (1.0-4.8) k/uL Sodium 136 L (137-145) mmol/L Glucose 107 H (74-99) mg/dL Calcium 7.7 L (8.4-10.2) mg/dL Microbiology - Last 24 Hours (Table) 02/25/19 10:30 Urine Culture - Preliminary Urine,Catheterized Gram Neg Bacilli 02/25/19 10:30 Blood Culture - Preliminary Blood No Growth after 24 hours Assessment and Plan Assessment: Acute Urinary tract infection - patient has history of multiple UTIs- straight catheterization at home Acute metabolic encephalopathy secondary to infection. improved now Pitutary adenoma Hypoadrenalism Hypothyroidism Obesity with BMI of 30 History of prostate cancer status post radiation therapy and chronic urinary retention Constipation. Resolved DVT prophylaxis with heparin subcu Plan: Patient will be renewed on antibiotics in the form of ceftriaxone. Urine culture showed gram-negative bacilli. Previous cultures grew Enterobacter aerogenes. Patient has been started on his home medications and stool softeners will be added. Continue with IV hydration. Follow up urine culture report. ID is following. Further recommendations to follow depending on the progress of the patient. Care plan has been updated with the patient and his family at bedside. Time with Patient: Greater than 30
[2019-02-27] MEDS: ARTIFICIAL TEARS-HYPROMELLOSE DROPS 15 ML BTL BOTH EYES PRN ×2 (01:54→06:14)
[2019-02-27] MEDS: HEPARIN SODIUM,PORCINE 5,000 UNIT/ML 1 ML VIAL SQ SCH ×3 (02:29→13:45)
[2019-02-27] MEDS: SODIUM CHLORIDE 0.9% 1,000 ML IV SCH ×2 (05:05→13:45)
[2019-02-27] MEDS: LEVOTHYROXINE 125 MCG TAB PO SCH (05:51)
[2019-02-27] MEDS: DOCUSATE 100 MG CAP PO SCH (07:38)
[2019-02-27] MEDS: LACTULOSE 20 GM/30 ML CUP PO SCH (07:39)
[2019-02-27] MEDS: HYDROCORTISONE 20 MG TAB PO SCH (07:39)
[2019-02-27] MEDS: VIT A,C & E-LUTEIN-MINERALS 1 EACH TAB PO SCH (07:39)
[2019-02-27] MEDS: LACTOBACILLUS ACIDOPH & BULGAR 1 EACH PACKET PO SCH (07:39)
[2019-02-27 12:42] VITALS: BP 136/102; PULSE 68; RESP 20; TEMP 98.1
[2019-02-27] MEDS: HYDROCORTISONE 10 MG TAB PO SCH (14:43)
--- NOTE | 2019-02-27 23:01 | P.PN ---
Subjective Progress Note Date: 02/27/19 83-year-old male well-known to the infectious disease service for as many hospitalizations and outpatient visits regarding his frequent urinary tract infections. Is noted he has chronic urinary retention on the basis of his prior prostate cancer and radiation therapy. He follows with urology. He was recently hospitalized 3 had difficulty with some retention and did have a short course of a Black catheter. However after an office procedure he has been down to just twice a day catheterization has been doing well with low volumes and no infections as of late. The patient had a sudden acute change of status consistent with his pattern of prior urinary infections. He was brought to [facility] and has evidence of a urinary tract infection. Given his significant polymicrobial infections in the past Zosyn has been initiated. The patient is feeling considerably better at this point in time and cultures are pending. He has tolerated his diet without nausea or emesis. Denies other acute changes but is pleasantly confused. 02/27/2019 the patient is a bit more comfortable. He is anxious for discharge to home. Cultures have been finalized. He is eating and drinking well. Objective - Vital Signs Vital signs: Vital Signs Temp 98.1 F 02/27/19 12:31 Pulse 68 02/27/19 12:31 Resp 20 02/27/19 12:31 BP 136/102 02/27/19 12:31 Pulse Ox 96 02/27/19 12:31 Intake & Output 02/27/19 02/27/19 02/28/19 06:59 18:59 06:59 Intake Total 540 Output Total 200 800 Balance 340 -800 Intake: Oral 540 Output: Urine 200 400 Straight 200 400 Post Void Residual 0 400 Other: Voiding Method Diaper Diaper Incontinent Incontinent # Voids 2 1 # Bowel Movements 0 - Exam HEENT: Anicteric conjunctiva are pink and moist nasal mucosa grossly intact without significant lesions, there is no thrush. Neck: The neck is supple without significant lymphadenopathy or thyromegaly. Lungs: Good bilateral air entry without significant crackles or wheezing. There is no significant bronchial sounds. There is no egophony or dullness. Heart: Regular rate and rhythm with an audible S1-S2, no S3 no S4. There is no significant murmur click or rub, PMI was nondisplaced. Abdomen: Positive bowel sounds soft and nontender without palpable masses or organomegaly. There was no guarding or rebound. Extremities: The upper extremities have excellent pulses they are symmetric, no significant petechiae or telangiectasia. No splinter hemorrhages were noted. The lower extremities are free from significant edema. The peripheral pulses were 2+ and symmetric. Neuro: Awake alert oriented to person and knows it is in the hospital. There are no acute new gross focal sensory motor deficits. 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 - Labs CBC & Chem 7: 02/26/19 11:02 02/26/19 11:02 Labs: Microbiology - Last 24 Hours (Table) 02/25/19 10:30 Blood Culture - Preliminary Blood No Growth after 48 hours 02/25/19 10:30 Urine Culture - Final Urine,Catheterized Enterobacter aerogenes Laboratory Results WBC 5.8 k/uL (3.8-10.6) 02/26/19 11:02 RBC 3.36 m/uL (4.30-5.90) L 02/26/19 11:02 Hgb 10.8 gm/dL (13.0-17.5) L 02/26/19 11:02 Hct 33.7 % (39.0-53.0) L 02/26/19 11:02 MCV 100.3 fL (80.0-100.0) H 02/26/19 11:02 MCH 32.2 pg (25.0-35.0) 02/26/19 11:02 MCHC 32.1 g/dL (31.0-37.0) 02/26/19 11:02 RDW 14.2 % (11.5-15.5) 02/26/19 11:02 Plt Count 144 k/uL (150-450) L 02/26/19 11:02 Neutrophils % 76 % 02/26/19 11:02 Lymphocytes % 13 % 02/26/19 11:02 Monocytes % 8 % 02/26/19 11:02 Eosinophils % 1 % 02/26/19 11:02 Basophils % 0 % 02/26/19 11:02 Neutrophils # 4.4 k/uL (1.3-7.7) 02/26/19 11:02 Lymphocytes # 0.8 k/uL (1.0-4.8) L 02/26/19 11:02 Monocytes # 0.5 k/uL (0-1.0) 02/26/19 11:02 Eosinophils # 0.1 k/uL (0-0.7) 02/26/19 11:02 Basophils # 0.0 k/uL (0-0.2) 02/26/19 11:02 Macrocytosis Slight 02/26/19 11:02 PT 11.4 sec (9.0-12.0) 02/25/19 10:30 INR 1.1 (<1.2) 02/25/19 10:30 APTT 26.4 sec (22.0-30.0) 02/25/19 10:30 Sodium 136 mmol/L (137-145) L 02/26/19 11:02 Potassium 4.0 mmol/L (3.5-5.1) 02/26/19 11:02 Chloride 105 mmol/L (98-107) 02/26/19 11:02 Carbon Dioxide 26 mmol/L (22-30) 02/26/19 11:02 Anion Gap 5 mmol/L 02/26/19 11:02 BUN 17 mg/dL (9-20) 02/26/19 11:02 Creatinine 1.03 mg/dL (0.66-1.25) 02/26/19 11:02 Est GFR (CKD-EPI)AfAm 77 (>60 ml/min/1.73 sqM) 02/26/19 11:02 Est GFR (CKD-EPI)NonAf 66 (>60 ml/min/1.73 sqM) 02/26/19 11:02 Glucose 107 mg/dL (74-99) H 02/26/19 11:02 Plasma Lactic Acid [place] 1.2 mmol/L (0.7-2.0) 02/25/19 10:30 Calcium 7.7 mg/dL (8.4-10.2) L 02/26/19 11:02 Total Bilirubin 0.8 mg/dL (0.2-1.3) 02/25/19 10:30 AST 21 U/L (17-59) 02/25/19 10:30 ALT 26 U/L (21-72) 02/25/19 10:30 Alkaline Phosphatase 61 U/L (38-126) 02/25/19 10:30 Creatine Kinase 23 U/L (55-170) L 02/25/19 10:30 Troponin I <0.012 ng/mL (0.000-0.034) 02/25/19 10:30 Total Protein 6.6 g/dL (6.3-8.2) 02/25/19 10:30 Albumin 3.6 g/dL (3.5-5.0) 02/25/19 10:30 Urine Color Light Yellow 02/25/19 10:30 Urine Appearance Cloudy (Clear) 02/25/19 10:30 Urine pH 6.0 (5.0-8.0) 02/25/19 10:30 Ur Specific [place] 1.012 (1.001-1.035) 02/25/19 10:30 Urine Protein 1+ (Negative) H 02/25/19 10:30 Urine Glucose (UA) Negative (Negative) 02/25/19 10:30 Urine Ketones Negative (Negative) 02/25/19 10:30 Urine Blood Small (Negative) H 02/25/19 10:30 Urine Nitrite Positive (Negative) 02/25/19 10:30 Urine Bilirubin Negative (Negative) 02/25/19 10:30 Urine Urobilinogen <2.0 mg/dL (<2.0) 02/25/19 10:30 Ur Leukocyte Esterase Large (Negative) H 02/25/19 10:30 Urine RBC 17 /hpf (0-5) H 02/25/19 10:30 Urine WBC >182 /hpf (0-5) H 02/25/19 10:30 Urine WBC Clumps Occasional /hpf (None) H 02/25/19 10:30 Urine Bacteria Few /hpf (None) H 02/25/19 10:30 Urine Mucus Rare /hpf (None) H 02/25/19 10:30 Microbiology 02/25/19 10:30 Blood Blood Culture - Preliminary No Growth after 48 hours 02/25/19 10:30 Urine,Catheterized Urine Culture - Final Enterobacter aerogenes Assessment and Plan (1) Altered mental status Status: Acute Code(s): R41.82 - ALTERED MENTAL STATUS, UNSPECIFIED SNOMED Code(s): 426864633 (2) Urinary tract infection Narrative/Plan: 83-year-old male presents to Hospital from home with the progressive onset of weakness and fatigue. The patient has a history of multiple prior urinary infections and with the symptoms was brought to hospital for further evaluation. Recent hospitalization did reveal evidence of some urinary retention after procedure has been doing somewhat better. Does perform straight catheterization twice a day and is having volumes not much more than 300 mL. Overall is doing well to the current onset of fever and sepsis. Gram-negative urinary tract infection with bacteremia is likely. Based on his history Zosyn his being utilized. Urine culture will help determine the plan for antibiotic therapy at discharge. No evidence of acute renal failure at this time. Patient may need to have bladder scan and straight catheterization depending on his status. 02/27/2019 patient is now had some further improvement. Enterobacter has been a side effect from the urine culture and it is not highly resistant. The patient does not have renal failure and he does not have sulfa ALLERGY counseling Bactrim as sent to his pharmacy. We'll plan for weeks of therapy and have him follow-up in the office at that point in time. Given the frequent recurrence of infection the possibility of a prostate base infection must be considered and constantly sulfa medication for more protracted period of time will be utilized the supra can impact his recurrent infections. He will straight cath as needed as before. Status: Acute Code(s): N39.0 - URINARY TRACT INFECTION, SITE NOT SPECIFIED SNOMED Code(s): 97459477
--- NOTE | 2019-02-28 13:40 | CDI ---
Documentation Clarification Form Date: 02/28/2019 From: Daniela Aguiar Phone: If questions call Cecelia Mckeon @ [phone], Hours-8:30 am & 5 pm Corrina Foster Admit Date: 02/25/2019 11:53:00 AM Patient Name: China Foreman Visit Number: [id number] Discharge Date: 02/27/2019 3:48:00 PM ATTENTION: The Clinical Documentation Specialists (CDI) and [facility] Coding Staff appreciate your assistance in clarifying documentation. Please respond to the clarification below the line at the bottom and electronically sign. The CDI & [facility] Coding staff will review the response and follow-up if needed. Please note: Queries are made part of the Legal Health Record. If you have any questions, please contact the author of this message via ITS. Dr. Atif Eisenberg A diagnosis of UTI has been documented in the H&P. He does multiple straight catheterizations at home History/Risk Factors: Hx prostate ca, metabolic encephalopathy, bacteremia, Per documentation in the H&P this patient was admitted with hx of multiple straight catheterizations. Urinalysis: leukocyte esterase-large, WBC>182 Urine culture: Enterobacter aerogenes Lab results: WBC-8.2, neutrophils-75, lactic acid-1.2 Treatment: IV Rocephin In your professional opinion, can you please clarify the etiology of the UTI, if known? UTI due to self catheterizations UTI not related to self catheterizations Other condition, please specify Unable to determine UTI due to self catheterizations MTDD
--- NOTE | 2019-03-06 23:59 | P.DS ---
Providers Date of admission: 02/25/19 11:53 Expected date of discharge: 02/27/19 Attending physician: Kristina Gunn Consults: 02/25/19 11:51 Consult Physician Routine Consulting Provider: Daniel Akins Consult Reason/Comments: Recurrent UTI Do you want consulting provider notified?: Yes Primary care physician: Vanessa Oneill Hospital Course: Discharge diagnosis Acute Urinary tract infection due to Enterobacter aerogenes. patient has history of multiple UTIs- straight catheterization at home Acute metabolic encephalopathy secondary to infection. improved now Pitutary adenoma Hypoadrenalism Hypothyroidism Obesity with BMI of 30 History of prostate cancer status post radiation therapy and chronic urinary retention Constipation. Resolved DVT prophylaxis with heparin subcu Hospital course Mr. Foreman is an 83-year-old male with a past medical history of thyroid disorder, prostate cancer status post radiation, chronic urinary retention does self cath was brought to the hospital by his family due to generalized weakness, lethargy and confusion. Patient became so weak that he could not stand up by himself and is a not able to do straight cath patient by himself as well. Patient has been having worsening symptoms since yesterday. T-max was 100.3 on admission. He did have bowel movement for the past 2 days also. Patient has been sweating and tired. Patient has a recurrent urinary tract infections. Denied any focal weakness. Previous urinary tract infection with Enterobacter aerogenes is At the time of admission patient had a urinalysis that was positive for leukocyte esterase and nitrates. He was started on ceftriaxone in the emergency department and admitted to the floors. he had a recent ultrasound on February 06 which revealed hydronephrosis he was told b joseph Self increases catheterization to 4 times a day. On reviewing the patient's past urine cultures he grew E. coli, Klebsiella, Enterobacter cloacae and Enterobacter aerogenes. Patient was discharged on Bactrim at the time. Previous admission in January 2019., infectious disease Dr. Akins was consulted. Patient denies having any other active complaints. Denies having any headaches, blurring of vision or slurring of speech. No neck stiffness. No chest pain or palpitations. No cough or difficulty breathing. No apparent pain nausea vomiting or diarrhea. No lower extremity swelling. No orthopnea or PND. 02/26/2019 Patient says that he feels better today. No fever no chills overnight. Patient otherwise more awake and oriented. No complaints of chest pain or shortness of breath. Currently being continued on ceftriaxone IV. Urine culture is growing gram-negative bacilli. ID is on board. 02/27/2019 Patient says that he feels much better now. Urine culture showed again Enterobacter aerogenes. Patient will be continued on antibiotics in the form Bactrim as an outpatient. To complete the course. Patient was initially willing to be discharged to rehab but decided to go home lateral. Patient be discharged home with home care. Discussed the patient and his at bedside in detail. PHYSICAL EXAMINATION: Patient is lying in the bed comfortably, no acute distress, awake alert and oriented.. HEENT: Normocephalic. Neck is supple. Pupils reactive. Nostrils clear. Oral cavity is moist. Ears reveal no drainage. Neck reveals no JVD, carotid bruits, or thyromegaly. CHEST EXAMINATION: Trachea is central. Symmetrical expansion. Lung frey clear to auscultation and percussion. CARDIAC: Normal S1, S2 with no gallops. No murmurs ABDOMEN: Soft. Bowel sounds normal. No organomegaly. No abdominal bruits. Extremities: reveal no edema. No clubbing or cyanosis Neurologically awake, alert, oriented x3 with well-coordinated movements. No focal deficits noted Skin: No rash or skin lesions. Psychiatric: Coperative. Nonsuicidal Musculoskeletal: No joint swelling or deformity. Normal range of motion. . Vital Signs Temp 98.1 F 02/27/19 12:31 Pulse 68 02/27/19 12:31 Resp 20 02/27/19 12:31 BP 136/102 02/27/19 12:31 Pulse Ox 96 02/27/19 12:31 Intake & Output 02/27/19 02/27/19 02/28/19 06:59 18:59 06:59 Intake Total 540 Output Total 200 800 Balance 340 -800 Intake: Oral 540 Output: Urine 200 400 Straight 200 400 Post Void Residual 0 400 Other: Voiding Method Diaper Diaper Incontinent Incontinent # Voids 2 1 # Bowel Movements 0 Total time taken greater than 35 minutes including 18 minutes for counseling and coordination of care. Patient Condition at Discharge: Serious Plan - Discharge Summary Discharge Rx Participant: No New Discharge Prescriptions: New Sulfamethox-Tmp 800-160Mg [Bactrim DS 800-160 mg] 1 tab PO Q12HR #60 tab Continue Hydrocortisone [Cortef] 10 mg PO DAILY@1400 Hydrocortisone [Cortef] 20 mg PO QAM Vit C/E/Zn/Coppr/Lutein/Zeaxan [Preservision Areds 2 Softgel] 1 cap PO BID L.acidoph,Paracasei, B.lactis [Probiotic] 1 cap PO DAILY Levothyroxine Sodium [Synthroid] 125 mcg PO DAILY Discharge Medication List Hydrocortisone [Cortef] 10 mg PO DAILY@1400 07/27/17 [History] Hydrocortisone [Cortef] 20 mg PO QAM 07/27/17 [History] Vit C/E/Zn/Coppr/Lutein/Zeaxan [Preservision Areds 2 Softgel] 1 cap PO BID 03/18/18 [History] L.acidoph,Paracasei, B.lactis [Probiotic] 1 cap PO DAILY 04/17/18 [History] Levothyroxine Sodium [Synthroid] 125 mcg PO DAILY 02/25/19 [History] Sulfamethox-Tmp 800-160Mg [Bactrim DS 800-160 mg] 1 tab PO Q12HR #60 tab 02/27/19 [Rx] Follow up Appointment(s)/Referral(s): Vanessa Oneill MD [Primary Care Provider] - 03/05/19 11:30 am Patient Instructions/Handouts: Urinary Tract Infection in Men (DC), Catheter- associated Urinary Tract Infection (DC) Discharge Disposition: HOME SELF-CARE
== END 2019-02-27 15:48 | disposition home or self-care (01) | DRG 698 ==
LOC: EC 10:02 → 4MS4W 11:53
PROVIDERS: ADMIT Hospitalist; ATTEND Hospitalist
DX: T83.598A Infection and inflammatory reaction due to other prosthetic device, implant and graft in urinary system, initial encounter (principal); G93.41 Metabolic encephalopathy; N39.0 Urinary tract infection, site not specified; E27.40 Unspecified adrenocortical insufficiency; R78.81 Bacteremia; B96.89 Other specified bacterial agents as the cause of diseases classified elsewhere; E03.9 Hypothyroidism, unspecified; R32 Unspecified urinary incontinence; H35.30 Unspecified macular degeneration; K59.00 Constipation, unspecified; E66.9 Obesity, unspecified; Z68.30 Body mass index [BMI] 30.0-30.9, adult; Z79.890 Hormone replacement therapy; Z79.52 Long term (current) use of systemic steroids; Z79.899 Other long term (current) drug therapy; Z87.440 Personal history of urinary (tract) infections; Z98.890 Other specified postprocedural states; Z85.46 Personal history of malignant neoplasm of prostate; Z92.3 Personal history of irradiation; Z86.2 Personal history of diseases of the blood and blood-forming organs and certain disorders involving the immune mechanism; Z86.19 Personal history of other infectious and parasitic diseases; Z87.891 Personal history of nicotine dependence; Z80.0 Family history of malignant neoplasm of digestive organs; Z82.3 Family history of stroke; Y84.6 Urinary catheterization as the cause of abnormal reaction of the patient, or of later complication, without mention of misadventure at the time of the procedure
CPT/HCPCS: 36415; 70450; 71046; 74018; 80048; 80053; 81001; 82550; 83605; 84484; 85025; 85610; 85730; 87040; 87077; 87086; 87186; 93005; 96361; 96365; 99285

== ENCOUNTER → 2019-03-19 | Outpatient (CLI) | payer MEDICARE, BC ==
--- NOTE | 2019-03-19 15:50 | US ---
EXAMINATION TYPE: US kidneys/renal and bladder DATE OF EXAM: 03/19/2019 COMPARISON: US CLINICAL HISTORY: R93.4 HX OF HYDRONEPHROSIS. H/O hydro, pt straight caths himself EXAM MEASUREMENTS: Right Kidney: 10.8 x 6.1 x 5.7 cm Left Kidney: 11.4 x 5.6 x 3.8 cm Right Kidney: Cortical thinning, mildly dilated renal pelvis = 2.7 cm, improved from previous study Left Kidney: Cortical thinning, moderate hydro, appears similar to previous study Bladder: wnl Bilateral Jets seen: yes IMPRESSION: 1. Cortical thinning suggestive for chronic renal failure. 2. Mild right hydronephrosis. 3. Moderate left hydronephrosis
== END | disposition home or self-care (01) ==
LOC: RADUSWWP 10:39
PROVIDERS: ATTEND Urology
DX: N13.30 Unspecified hydronephrosis (principal)
CPT/HCPCS: 76770

== ENCOUNTER → 2019-04-10 | Outpatient (CLI) | payer MEDICARE, BC ==
[2019-04-10 12:35] LABS: Basophils % (A) 0 %; Eosinophils # (A) 0.1 k/uL (0-0.7); Eosinophils % (A) 1 %; HCT 36.1 % (39.0-53.0); HGB 11.7 gm/dL (13.0-17.5); Lymphocytes # (A) 1.4 k/uL (1.0-4.8); Lymphocytes % (A) 21 %; MCH 32.5 pg (25.0-35.0); MCHC 32.4 g/dL (31.0-37.0); MCV 100.2 fL (80.0-100.0); Mean Platelet Volume 6.5; Monocytes # (A) 0.4 k/uL (0-1.0); Monocytes % (A) 6 %; Neutrophils # (A) 4.6 k/uL (1.3-7.7); Neutrophils % (A) 70 %; Platelet Count 180 k/uL (150-450); RBC 3.61 m/uL (4.30-5.90); RDW 13.4 % (11.5-15.5); WBC 6.6 k/uL (3.8-10.6)
[2019-04-10 12:52] LABS: Calcium 8.8 mg/dL (8.4-10.2); Potassium 5.1 mmol/L (3.5-5.1)
== END | disposition home or self-care (01) ==
LOC: LABPAT 10:48
PROVIDERS: ATTEND Urology
DX: Z01.818 Encounter for other preprocedural examination (principal); Z01.812 Encounter for preprocedural laboratory examination; N13.30 Unspecified hydronephrosis; R31.29 Other microscopic hematuria; I10 Essential (primary) hypertension
CPT/HCPCS: 36415; 80048; 85025; 93005

== ENCOUNTER 2019-04-12 21:54 | Inpatient (IN) | payer MEDICARE, BC ==
--- NOTE | 2019-04-12 22:07 | ED ---
General Adult HPI - General Stated complaint: Weakness Time Seen by Provider: 04/12/19 22:06 - History of Present Illness Initial comments: [place] is a pleasant 83-year-old gentleman is brought to the emergency department today for evaluation of generalized weakness. Patient reports he started feeling weak yesterday, today he was feeling more weak, he bent over getting something out of a drawer and lost his balance, he fell to the ground did not strike his head or obtained any injuries however he was too weak to stand. EMS was contacted for lift assist however were concerned that the patient was too weak to be on his own, EMS was patient quite well, due to the patient's need for straight cath patient has recurrent urinary tract infections they were concerned he may have a urinary tract infection resulting in his weakness. They encouraged the patient to come to the ER for evaluation he was agreeable. - Related Data Home Medications Medication Instructions Recorded Confirmed Hydrocortisone [Cortef] 10 mg PO DAILY@1400 07/27/17 04/12/19 Hydrocortisone [Cortef] 20 mg PO QAM 07/27/17 04/12/19 Vit C/E/Zn/Coppr/Lutein/Zeaxan 1 cap PO BID 03/18/18 04/12/19 [Preservision Areds 2 Softgel] L.acidoph,Paracasei, B.lactis 1 cap PO DAILY 04/17/18 04/12/19 [Probiotic] Levothyroxine Sodium [Synthroid] 125 mcg PO DAILY 02/25/19 04/12/19 Allergies Allergy/AdvReac Type Severity Reaction Status Date / Time No Known Allergies Allergy Verified 04/12/19 22:19 Review of Systems ROS Statement: Those systems with pertinent positive or pertinent negative responses have been documented in the HPI. ROS Other: All systems not noted in ROS Statement are negative. Past Medical History Past Medical History: Cancer, Eye Disorder, Memory Impairment, Thyroid Disorder Additional Past Medical History / Comment(s): Prostate CA with radiation/urinary retention/self caths at 9pm and midnight and voids during daytime hours/ occasional incontinence of urine, frequent UTIs and has confusion with UTIs, stable pituitary mass, hyponatremia, chronic anemia, bilateral macular degeneration, hypothyroidism, pt's legs are cold all the time. History of Any Multi-Drug Resistant Organisms: Unobtainable, Other MDRO Past Surgical History: Adenoidectomy, Tonsillectomy Additional Past Surgical History / Comment(s): EGD/colonoscopy. Past Anesthesia/Blood Transfusion Reactions: No Reported Reaction Additional Past Alcohol Use History / Comment(s): Patient was a smoker 3 packs per day. He started smoking in 1947 and quit in 1961. No illicit drug use or alcohol use. - Past Family History Father Family Medical History: Cancer Additional Family Medical History / Comment(s): Colon CA, at 74. Mother Family Medical History: No Reported History, CVA/TIA Additional Family Medical History / Comment(s): Mother of a CVA at the age of 83yrs. General Exam - General Exam Comments Initial Comments: Physical Exam GENERAL: Patient is well-developed and well-nourished. Patient is nontoxic and well- hydrated and is in no distress. HENT: Normocephalic, Atraumatic. EYES: PERRL, EOMI PULMONARY: Unlabored respirations. No audible rales rhonchi or wheezing was noted. CARDIOVASCULAR: There is a regular rate and rhythm without any murmurs gallops or rubs. ABDOMEN: Soft and nontender with normal bowel sounds. SKIN: Skin is clear with no lesions or rashes and otherwise unremarkable. : Normal external genitalia NEUROLOGIC: Patient is alert and oriented x3. Moving all extremities spontaneously MUSCULOSKELETAL: Normal extremities with adequate strength and full range of motion. No lower extremity swelling or edema. No calf tenderness. PSYCHIATRIC: Normal psychiatric evaluation Course Vital Signs 04/12/19 22:15 Temperature 100.2 F H Pulse Rate 79 Respiratory 16 Rate Blood Pressure 114/60 O2 Sat by Pulse 96 Oximetry EKG Findings - EKG Comments: EKG Findings:: EKG was ordered, EKG was obtained at 2220, heart rate 75 rhythm is sinus with PVCs there is a right bundle branch block, AL 160, QRS 140, QTC 469 there T waves inversions in V1 through V4 there are no acute ST elevations no evidence of acute infarction. Medical Decision Making - Medical Decision Making The patient was seen and evaluated, history is obtained from patient, EMS and review of medical record 83-year-old gentleman with recurrent urinary tract infection secondary to straight cath who presents to the emergency department today with generalized weakness Labs were ordered EKG was nonischemic There is difficulty in catheterizing the patient, I was able to straight cath the patient and urine was obtained which resulted with a urinary tract infection. Previous cultures were reviewed patient is susceptible to Rocephin on previous cultures are for Rocephin was ordered. Given the patient's advanced age complicated urinary tract infection and will admit the patient for IV antibiotics and evaluation by urology. - Lab Data Result diagrams: 04/12/19 22:28 04/12/19 22:28 Lab Results 04/12/19 04/12/19 04/12/19 Range/Units 22:28 22:28 22:28 WBC 8.6 (3.8-10.6) k/uL RBC 3.58 L (4.30-5.90) m/uL Hgb 11.3 L (13.0-17.5) gm/dL Hct 35.5 L (39.0-53.0) % MCV 99.2 (80.0-100.0) fL MCH 31.6 (25.0-35.0) pg MCHC 31.9 (31.0-37.0) g/dL RDW 13.5 (11.5-15.5) % Plt Count 162 (150-450) k/uL Neutrophils % 70 % Lymphocytes % 19 % Monocytes % 7 % Eosinophils % 2 % Basophils % 0 % Neutrophils # 6.1 (1.3-7.7) k/uL Lymphocytes # 1.6 (1.0-4.8) k/uL Monocytes # 0.6 (0-1.0) k/uL Eosinophils # 0.2 (0-0.7) k/uL Basophils # 0.0 (0-0.2) k/uL PT (9.0-12.0) sec INR (<1.2) APTT (22.0-30.0) sec Sodium 134 L (137-145) mmol/L Potassium 4.3 (3.5-5.1) mmol/L Chloride 99 (98-107) mmol/L Carbon Dioxide 25 (22-30) mmol/L Anion Gap 10 mmol/L BUN 15 (9-20) mg/dL Creatinine 1.06 (0.66-1.25) mg/dL Est GFR (CKD-EPI)AfAm 74 (>60 ml/min/1.73 sqM) Est GFR (CKD-EPI)NonAf 64 (>60 ml/min/1.73 sqM) Glucose 98 (74-99) mg/dL Plasma Lactic Acid Garland 1.0 (0.7-2.0) mmol/L Calcium 8.2 L (8.4-10.2) mg/dL Magnesium 1.8 (1.6-2.3) mg/dL Total Bilirubin 0.5 (0.2-1.3) mg/dL AST 20 (17-59) U/L ALT 21 (21-72) U/L Alkaline Phosphatase 70 (38-126) U/L Troponin I (0.000-0.034) ng/mL Total Protein 6.4 (6.3-8.2) g/dL Albumin 3.5 (3.5-5.0) g/dL TSH <0.015 L (0.465-4.680) mIU/L Urine Color Urine Appearance (Clear) Urine pH (5.0-8.0) Ur Specific Volcano (1.001-1.035) Urine Protein (Negative) Urine Glucose (UA) (Negative) Urine Ketones (Negative) Urine Blood (Negative) Urine Nitrite (Negative) Urine Bilirubin (Negative) Urine Urobilinogen (<2.0) mg/dL Ur Leukocyte Esterase (Negative) Urine RBC (0-5) /hpf Urine WBC (0-5) /hpf Urine WBC Clumps (None) /hpf Urine Bacteria (None) /hpf Urine Mucus (None) /hpf 04/12/19 04/12/19 04/13/19 Range/Units 22:28 22:28 02:28 WBC (3.8-10.6) k/uL RBC (4.30-5.90) m/uL Hgb (13.0-17.5) gm/dL Hct (39.0-53.0) % MCV (80.0-100.0) fL MCH (25.0-35.0) pg MCHC (31.0-37.0) g/dL RDW (11.5-15.5) % Plt Count (150-450) k/uL Neutrophils % % Lymphocytes % % Monocytes % % Eosinophils % % Basophils % % Neutrophils # (1.3-7.7) k/uL Lymphocytes # (1.0-4.8) k/uL Monocytes # (0-1.0) k/uL Eosinophils # (0-0.7) k/uL Basophils # (0-0.2) k/uL PT 10.8 (9.0-12.0) sec INR 1.0 (<1.2) APTT 25.4 (22.0-30.0) sec Sodium (137-145) mmol/L Potassium (3.5-5.1) mmol/L Chloride (98-107) mmol/L Carbon Dioxide (22-30) mmol/L Anion Gap mmol/L BUN (9-20) mg/dL Creatinine (0.66-1.25) mg/dL Est GFR (CKD-EPI)AfAm (>60 ml/min/1.73 sqM) Est GFR (CKD-EPI)NonAf (>60 ml/min/1.73 sqM) Glucose (74-99) mg/dL Plasma Lactic Acid Garland (0.7-2.0) mmol/L Calcium (8.4-10.2) mg/dL Magnesium (1.6-2.3) mg/dL Total Bilirubin (0.2-1.3) mg/dL AST (17-59) U/L ALT (21-72) U/L Alkaline Phosphatase (38-126) U/L Troponin I <0.012 (0.000-0.034) ng/mL Total Protein (6.3-8.2) g/dL Albumin (3.5-5.0) g/dL TSH (0.465-4.680) mIU/L Urine Color Light Yellow Urine Appearance Cloudy (Clear) Urine pH 6.0 (5.0-8.0) Ur Specific Volcano 1.011 (1.001-1.035) Urine Protein 1+ H (Negative) Urine Glucose (UA) Negative (Negative) Urine Ketones Negative (Negative) Urine Blood Trace H (Negative) Urine Nitrite Positive (Negative) Urine Bilirubin Negative (Negative) Urine Urobilinogen <2.0 (<2.0) mg/dL Ur Leukocyte Esterase Large H (Negative) Urine RBC 6 H (0-5) /hpf Urine WBC >182 H (0-5) /hpf Urine WBC Clumps Few H (None) /hpf Urine Bacteria Moderate H (None) /hpf Urine Mucus Rare H (None) /hpf Disposition Clinical Impression: Urinary tract infection Disposition: ADMITTED IP TO THIS HOSP Condition: Stable Referrals: Mai,Vanessa, MD [Primary Care Provider] - 1-2 days
[2019-04-12] MEDS ORDERED: SODIUM CHLORIDE 0.9% 500 ML 500 ML IV STA (22:10)
[2019-04-12 22:50] LABS: Basophils % (A) 0 %; Eosinophils # (A) 0.2 k/uL (0-0.7); Eosinophils % (A) 2 %; HCT 35.5 % (39.0-53.0); HGB 11.3 gm/dL (13.0-17.5); Lymphocytes # (A) 1.6 k/uL (1.0-4.8); Lymphocytes % (A) 19 %; MCH 31.6 pg (25.0-35.0); MCHC 31.9 g/dL (31.0-37.0); MCV 99.2 fL (80.0-100.0); Mean Platelet Volume 6.4; Monocytes # (A) 0.6 k/uL (0-1.0); Monocytes % (A) 7 %; Neutrophils # (A) 6.1 k/uL (1.3-7.7); Neutrophils % (A) 70 %; Platelet Count 162 k/uL (150-450); RBC 3.58 m/uL (4.30-5.90); RDW 13.5 % (11.5-15.5); WBC 8.6 k/uL (3.8-10.6)
[2019-04-12 23:03] LABS: Partial Thromboplastin Time 25.4 sec (22.0-30.0); Prothrombin Time 10.8 sec (9.0-12.0)
[2019-04-12 23:04] LABS: ALT 21 U/L (21-72); AST 20 U/L (17-59); African American GFR (CKD) 74 (>60 ml/min/1.73 sqM); Albumin 3.5 g/dL (3.5-5.0); Alkaline Phosphatase 70 U/L (38-126); Anion Gap 10 mmol/L; Blood Urea Nitrogen 15 mg/dL (9-20); Calcium 8.2 mg/dL (8.4-10.2); Carbon Dioxide 25 mmol/L (22-30); Chloride 99 mmol/L (98-107); Glucose 98 mg/dL (74-99); Magnesium 1.8 mg/dL (1.6-2.3); Non-African American GFR(CKD) 64 (>60 ml/min/1.73 sqM); Potassium 4.3 mmol/L (3.5-5.1); Sodium 134 mmol/L (137-145); Total Bilirubin 0.5 mg/dL (0.2-1.3); Total Protein 6.4 g/dL (6.3-8.2)
--- NOTE | 2019-04-12 23:17 | XR ---
EXAM: XR Chest, 2 Views CLINICAL HISTORY: ITS.REASON XR Reason: Weakness TECHNIQUE: Frontal and lateral views of the chest. COMPARISON: 02/25/19 IMPRESSION: Cardiomegaly. No consolidation or pleural effusion.
[2019-04-13] MEDS ORDERED: LIDOCAINE URO-JET JELLY 2% 5 ML KIT URETHRAL ONE (01:24)
[2019-04-13 02:51] LABS: Appearance,Urine Cloudy (Clear); Bacteria,Urine Moderate /hpf; Bilirubin,Urine Negative (Negative); Blood,Urine Trace (Negative); Color,Urine Light Yellow; Glucose,Urine (UA) Negative (Negative); Ketones,Urine Negative (Negative); Leukocyte Esterase,Urine Large (Negative); Mucus,Urine Rare /hpf; Nitrite,Urine Positive (Negative); Protein,Urine 1+ (Negative); RBC,Urine 6 /hpf (0-5); Specific Gravity,Urine 1.011 (1.001-1.035); Urobilinogen,Urine <2.0 mg/dL (<2.0); WBC,Urine >182 /hpf (0-5)
[2019-04-13] MEDS ORDERED: NALOXONE 0.4 MG/ML 1 ML VIAL IV PRN (03:13)
[2019-04-13] MEDS ORDERED: cefTRIAXone IN SWFI 1,000 MG/10 ML SYRINGE IVP STA (03:13)
[2019-04-13] MEDS ORDERED: ACETAMINOPHEN TAB 325 MG TAB PO PRN (03:13)
[2019-04-13] MEDS ORDERED: IBUPROFEN 400 MG TAB PO PRN (03:13)
[2019-04-13] MEDS: LEVOTHYROXINE 125 MCG TAB PO SCH (04:47)
[2019-04-13] MEDS ORDERED: HYDROCORTISONE 10 MG TAB PO SCH ×2 (09:00→14:00)
[2019-04-13] MEDS: LIPASE 5,000/PROTEASE 17,000/AMYLASE 24,000 PO SCH (09:41)
--- NOTE | 2019-04-13 12:18 | P.GSCN ---
History of Present Illness Consult date: 04/13/19 Reason for Consult: Urinary retention History of present illness: The patient is an 83-year-old male admitted through the emergency room early t his morning for evaluation of weakness and possible sepsis from a urinary tract infection. He had apparently slipped and fell at home but sustained no injury. He was noted to have a temperature of 100.4 in the emergency room and a white blood count of 8600. Urinalysis positive for nitrite and showed evidence of pyuria and the patient was started on ceftriaxone. The patient has continued to have a low-grade fever which has not been over 100 since he was admitted. He was not complaining of any pain or nausea at the time of admission but has been nauseated this morning. The patient has a history of chronic urinary retention and has performed self catheterization 4 times daily since 2016. He has intermittent urinary incontinence which has also been chronic. He has had periodic urinary tract infections related to this. He has a history of prostate cancer treated with radiation therapy in 1995. He had biochemical recurrence in 2008 associated with restarting testosterone replacement therapy due to symptomatic hypogonadism. He is currently in remission and his last PSA was 0.19. There has been concern that the patient has bilateral hydronephrosis and a renal ultrasound on 02/06/2019 described bilateral hydronephrosis which was worse on the left side. Repeat renal ultrasound on 03/19 described mild right hydronephrosis which was improved from the previous scan and moderate left hydronephrosis. 2 scan of the abdomen and pelvis on 12/18/2018 showed what appeared to be an extr arenal pelvis on the left side and a small extrarenal pelvis on the right. The same findings were also noted on a computed tomography scan with IV contrast on 08/05/2016. The patient's renal function has remained relatively stable with a creatinine in the 0.8-1.0 range. BUN/creatinine at the time of his admission yesterday was 15.06. Dr. Downey has scheduled cystoscopy with bilateral retrograde pyelograms for further evaluation of the abnormality noted on the renal ultrasound for 04/17. Review of Systems - Constitutional Reports chills, Reports fever, Reports lethargy Past Medical History Past Medical History: Cancer, Eye Disorder, Memory Impairment, Thyroid Disorder Additional Past Medical History / Comment(s): Prostate CA with radiation/urinary retention/self caths at 9pm and midnight and voids during daytime hours/ occasional incontinence of urine, frequent UTIs and has confusion with UTIs, stable pituitary mass, hyponatremia, chronic anemia, bilateral macular degeneration, hypothyroidism, pt's legs are cold all the time. History of Any Multi-Drug Resistant Organisms: Unobtainable, Other MDRO Past Surgical History: Adenoidectomy, Tonsillectomy Additional Past Surgical History / Comment(s): EGD/colonoscopy. Past Anesthesia/Blood Transfusion Reactions: No Reported Reaction Past Psychological History: No Psychological Hx Reported Additional Psychological History / Comment(s): and lives in the family home. 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 No international travel. No current animal exposures. Pt has a cane, walker and 3 wheeled electric scooter. He drives short distances. His spouse drives. 3 adult children live nearby and are helpful. Smoking Status: Former smoker Past Alcohol Use History: None Reported Additional Past Alcohol Use History / Comment(s): Patient was a smoker 3 packs per day. He started smoking in 1947 and quit in 1961. No illicit drug use or alcohol use. Past Drug Use History: None Reported - Past Family History Father Family Medical History: Cancer Additional Family Medical History / Comment(s): Colon CA, at 74. Mother Family Medical History: No Reported History, CVA/TIA Additional Family Medical History / Comment(s): Mother of a CVA at the age of 83yrs. Medications and Allergies Home Medications Medication Instructions Recorded Confirmed Type Hydrocortisone [Cortef] 10 mg PO DAILY@1400 07/27/17 04/12/19 History Hydrocortisone [Cortef] 20 mg PO QAM 07/27/17 04/12/19 History Vit C/E/Zn/Coppr/Lutein/Zeaxan 1 cap PO BID 03/18/18 04/12/19 History [Preservision Areds 2 Softgel] L.acidoph,Paracasei, B.lactis 1 cap PO DAILY 04/17/18 04/12/19 History [Probiotic] Levothyroxine Sodium [Synthroid] 125 mcg PO DAILY 02/25/19 04/12/19 History Allergies Allergy/AdvReac Type Severity Reaction Status Date / Time No Known Allergies Allergy Verified 04/12/19 22:19 Surgical - Exam Vital Signs Temp Pulse Resp BP Pulse Ox 100.2 F H 79 16 114/60 96 04/12/19 22:15 04/12/19 22:15 04/12/19 22:15 04/12/19 22:15 04/12/19 22:15 - General well developed, well nourished, no distress, obese - ENT no hearing loss - Neck no masses, no lymphadectomy - Respiratory normal respiratory effort - Abdomen Abdomen: soft, non tender, no organomegaly - Genitourinary normal penis with no external lesions, testicles non-tender Results - Labs 04/12/19 22:28 04/12/19 22:28 Abnormal Lab Results - Last 24 Hours (Table) 04/12/19 04/12/19 04/13/19 Range/Units 22:28 22:28 02:28 RBC 3.58 L (4.30-5.90) m/uL Hgb 11.3 L (13.0-17.5) gm/dL Hct 35.5 L (39.0-53.0) % Sodium 134 L (137-145) mmol/L Calcium 8.2 L (8.4-10.2) mg/dL TSH <0.015 L (0.465-4.680) mIU/L Urine Protein 1+ H (Negative) Urine Blood Trace H (Negative) Ur Leukocyte Esterase Large H (Negative) Urine RBC 6 H (0-5) /hpf Urine WBC >182 H (0-5) /hpf Urine WBC Clumps Few H (None) /hpf Urine Bacteria Moderate H (None) /hpf Urine Mucus Rare H (None) /hpf Microbiology - Last 24 Hours (Table) 04/13/19 02:28 Urine Culture - Preliminary Urine,Catheterized Diabetes panel 04/12/19 Range/Units 22:28 Sodium 134 L (137-145) mmol/L Potassium 4.3 (3.5-5.1) mmol/L Chloride 99 (98-107) mmol/L Carbon Dioxide 25 (22-30) mmol/L BUN 15 (9-20) mg/dL Creatinine 1.06 (0.66-1.25) mg/dL Glucose 98 (74-99) mg/dL Calcium 8.2 L (8.4-10.2) mg/dL AST 20 (17-59) U/L ALT 21 (21-72) U/L Alkaline Phosphatase 70 (38-126) U/L Total Protein 6.4 (6.3-8.2) g/dL Albumin 3.5 (3.5-5.0) g/dL Thyroid panel 04/12/19 Range/Units 22:28 TSH <0.015 L (0.465-4.680) mIU/L Calcium panel 04/12/19 Range/Units 22:28 Calcium 8.2 L (8.4-10.2) mg/dL Albumin 3.5 (3.5-5.0) g/dL Pituitary panel 04/12/19 Range/Units 22:28 Sodium 134 L (137-145) mmol/L Potassium 4.3 (3.5-5.1) mmol/L Chloride 99 (98-107) mmol/L Carbon Dioxide 25 (22-30) mmol/L BUN 15 (9-20) mg/dL Creatinine 1.06 (0.66-1.25) mg/dL Glucose 98 (74-99) mg/dL Calcium 8.2 L (8.4-10.2) mg/dL TSH <0.015 L (0.465-4.680) mIU/L Adrenal panel 04/12/19 Range/Units 22:28 Sodium 134 L (137-145) mmol/L Potassium 4.3 (3.5-5.1) mmol/L Chloride 99 (98-107) mmol/L Carbon Dioxide 25 (22-30) mmol/L BUN 15 (9-20) mg/dL Creatinine 1.06 (0.66-1.25) mg/dL Glucose 98 (74-99) mg/dL Calcium 8.2 L (8.4-10.2) mg/dL Total Bilirubin 0.5 (0.2-1.3) mg/dL AST 20 (17-59) U/L ALT 21 (21-72) U/L Alkaline Phosphatase 70 (38-126) U/L Total Protein 6.4 (6.3-8.2) g/dL Albumin 3.5 (3.5-5.0) g/dL Assessment and Plan (1) Urinary tract infection Narrative/Plan: The patient appears to have a urinary tract infection associated with self- catheterization. He has a low-grade fever and his lethargy and weakness could be related to this. He has been started on ceftriaxone which is a reasonable option pending results of the urine culture. Current Visit: Yes Status: Acute Code(s): N39.0 - URINARY TRACT INFECTION, SITE NOT SPECIFIED SNOMED Code(s): 90174628 (2) Bilateral hydronephrosis Narrative/Plan: I personally reviewed the patient's renal ultrasounds from 02/06/2019 and 03/19/2019 and compared them with the computed tomography scan without contrast on 12/18/2018 and a computed tomography scan with IV contrast from 09/01/2016. 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 This would be consistent with the patient's stable renal function. Due to the probable urinary tract infection cystoscopy with retrogrades will not be performed later this week. An alternative to these studies in the future would be either a repeat computed tomography scan with IV contrast or a MAG3 diuretic renogram. I will discuss this further with . Current Visit: No Status: Acute Code(s): N13.30 - UNSPECIFIED HYDRONEPHROSIS SNOMED Code(s): 04225301
[2019-04-13] MEDS: SODIUM CHLORIDE 0.9% 1,000 ML IV SCH (14:00)
[2019-04-13] MEDS ORDERED: HYDROCORTISONE SUCCINATE 100 MG/2 ML VIAL IV SCH (14:58)
[2019-04-13] MEDS ORDERED: ALPRAZolam 0.25 MG TAB PO PRN (14:59)
[2019-04-13] MEDS ORDERED: HYDROcodone/APAP 5-325MG 1 EACH TAB PO PRN (14:59)
[2019-04-13 15:38] LABS: T4, Free (Free Thyroxine) 1.38 ng/dL (0.78-2.19)
[2019-04-13] MEDS: HYDROCORTISONE SUCCINATE 100 MG/2 ML VIAL IV SCH (17:16)
[2019-04-13] MEDS: PANTOPRAZOLE 40 MG/10 ML VIAL IVP SCH (17:16)
--- NOTE | 2019-04-13 18:18 | HP ---
HISTORY AND PHYSICAL DATE OF SERVICE: 04/13/2019 CHIEF COMPLAINT: Weakness. HISTORY OF PRESENT ILLNESS: This 83-year-old gentleman with a past medical history of memory impairment, history of prostate cancer, history of adenoidectomy, history of self catheterization, history of MDRO, being followed by Dr. Oneill in the outpatient setting was complaining of weakness. The patient was unable to do any activities according to him for the past few days. Patient also apparently slipped and fell, also. The patient had a fever. Patient came to [facility] and UTI was diagnosed. Patient admitted to the hospital for further evaluation and treatment. The patient also was evaluated by urology. Patient had bilateral hydronephrosis, which is rather stable according to Urology. There is no history of fever, rigors or chills. No history of headache, loss of consciousness or seizures at this time. PAST MEDICAL HISTORY: History of memory impairment, history of hypothyroidism, prostate gland cancer, adenoidectomy. MEDICATIONS: Home medication are: 1. Vitamin E, Zinc, copper 1 capsule p.o. b.i.d. 2. Synthroid 125 mcg p.o. 3. Probiotic 1 p.o. daily. 4. Cortef 20 mg q.a.m. and 10 mg daily. ALLERGIES: BACTRIM. FAMILY HISTORY: History of colon cancer. SOCIAL HISTORY: Previous history of smoking. No history of alcohol intake. REVIEW OF SYSTEMS: ENT diminished vision. Diminished hearing. CARDIOVASCULAR: No angina or palpitations. RESPIRATIONS: No cough. GI as mentioned earlier. : As mentioned earlier. Nervous system: As mentioned earlier. ALLERGIES/IMMUNOLOGY: No asthma or hayfever. MUSCULOSKELETAL as mentioned earlier. HEMATOLOGY: No history of anemia. ENDOCRINE: Hypothyroidism and hypoadrenalism. ALLERGY/IMMUNOLOGY: No asthma or hayfever. MUSCULOSKELETAL: As mentioned earlier. HEMATOLOGY/ONCOLOGY: No history of anemia. PSYCHIATRY as mentioned earlier. RHEUMATOLOGY negative. NEUROLOGY as mentioned earlier. PHYSICAL EXAMINATION: Alert and oriented times three. Pulse 77. Blood pressure 113/55, respiration 20, temperature 98.4. T-max 102.4, pulse ox 94% on room air. HEENT is conjunctivae normal. Oral mucosa moist. NECK is no jugular venous distention. No carotid bruit. No lymph node enlargement. CARDIOVASCULAR S1, S2 muffled. RESPIRATION: Breath sounds diminished in the bases. A few scattered rhonchi. No crackles. ABDOMEN: Soft, nontender. No mass palpable. LEGS: No edema. No swelling. NERVOUS SYSTEM: Higher functions as mentioned earlier. Moves all 4 limbs. Mild diffuse weakness. No focal motor or sensory deficits. Lymphatics: No lymph nodes palpable in the neck, axillae or groin. SKIN: No ulcer rashes or bleeding. JOINTS: No active deforming arthropathy. LABS: WBC 8.2, hemoglobin 11.7 and sodium 134. UA noted. ASSESSMENT: 1. Acute urinary tract infection present on admission. Generalized weakness. Rule out hypoadrenalism. 2. Low TSH. 3. Anemia, normocytic anemia of chronic disease. 4. Hyponatremia. 5. History of self catheterization. 6. History of prostate cancer with radiation, urinary retention. 7. History of dementia. 8. History of hypothyroidism. 9. History of adenoidectomy. 10.Tonsillectomy. 11.Remote history of nicotine dependence. RECOMMENDATIONS AND DISCUSSION: This 83-year-old gentleman who presented with multiple medical issues, at this time, I recommend to continue current medications, continue with monitoring, management and symptomatic treatment. Otherwise, at this time, broad-spectrum IV antibiotics initiated. Recommend cultures. Also recommend IV steroids and check T3, free T3 and free T4. DVT prophylaxis. Incentive spirometry. Resume the home medications. Prognosis guarded because of multiple complex medical issues. Further recommendations to follow. A copy of dictation forwarded to Dr. Oneill who is the primary physician. MMODL / IJN: [id number] /
[2019-04-13] MEDS: HEPARIN SODIUM,PORCINE 5,000 UNIT/ML 1 ML VIAL SQ SCH (20:30)
[2019-04-14] MEDS: HYDROCORTISONE SUCCINATE 100 MG/2 ML VIAL IV SCH ×4 (03:32→23:28)
[2019-04-14] MEDS: SODIUM CHLORIDE 0.9% 1,000 ML IV SCH ×2 (03:32→17:34)
[2019-04-14] MEDS: LEVOTHYROXINE 125 MCG TAB PO SCH (05:38)
[2019-04-14] MEDS: HEPARIN SODIUM,PORCINE 5,000 UNIT/ML 1 ML VIAL SQ SCH ×2 (07:03→20:53)
[2019-04-14] MEDS: PANTOPRAZOLE 40 MG/10 ML VIAL IVP SCH (07:03)
[2019-04-14] MEDS: LIPASE 5,000/PROTEASE 17,000/AMYLASE 24,000 PO SCH (07:04)
[2019-04-14 09:58] LABS: Basophils % (A) 0 %; Eosinophils % (A) 0 %; HCT 35.3 % (39.0-53.0); HGB 11.5 gm/dL (13.0-17.5); Lymphocytes # (A) 0.5 k/uL (1.0-4.8); Lymphocytes % (A) 7 %; MCH 32.9 pg (25.0-35.0); MCHC 32.7 g/dL (31.0-37.0); MCV 100.5 fL (80.0-100.0); Macrocytosis Slight; Mean Platelet Volume 7.3; Monocytes # (A) 0.1 k/uL (0-1.0); Monocytes % (A) 2 %; Neutrophils # (A) 6.7 k/uL (1.3-7.7); Neutrophils % (A) 91 %; Platelet Count 166 k/uL (150-450); RBC 3.51 m/uL (4.30-5.90); RDW 14.1 % (11.5-15.5); WBC 7.4 k/uL (3.8-10.6)
[2019-04-14 10:09] LABS: Calcium 8.2 mg/dL (8.4-10.2); Potassium 3.9 mmol/L (3.5-5.1)
--- NOTE | 2019-04-14 18:37 | PN ---
PROGRESS NOTE DATE OF SERVICE: 04/14/2019 This 83-year-old gentleman admitted with weakness, had features of UTI. The cultures are showing gram-negative bacilli. No chest pain. No palpitations. Patient was confused yesterday, slightly more oriented today. EXAM: Alert and oriented times three. Pulse 70. Blood pressure is 101/62, respiration 18, temperature 97.4, pulse ox 94% on room air. HEENT is conjunctivae normal. NECK: No JVD. CARDIOVASCULAR: S1, S2 muffled. RESPIRATIONS: Breath sounds diminished in the bases. A few scattered rhonchi and crackles. ABDOMEN is soft, nontender. LEGS are no edema, no swelling. CENTRAL NERVOUS SYSTEM: No focal deficits. LABS: WBC 7.5, hemoglobin 11.5, sodium 136. ASSESSMENT: 1. Acute urinary tract infection present on admission, generalized weakness, rule out hypoadrenalism. 2. Low TSH with normal free T3 and free T4, possibly sick euthyroid syndrome. 3. Anemia, normocytic anemia of chronic disease. 4. Hyponatremia. 5. History of self catheterization. 6. History of prostate cancer with radiation, urinary retention. 7. History of dementia. 8. Hypothyroidism. 9. Adenoidectomy history. 10.History of tonsillectomy. 11.Remote history of nicotine dependence. RECOMMENDATIONS AND DISCUSSION: In this 83-year-old gentleman who presented with multiple complex medical issues, we will monitor the patient closely, continue the current medications, management and symptomatic treatment. Otherwise, at this time, I recommend continue with antibiotics. Continue with the IV steroids. Supplements. Guarded prognosis because of multiple complex medical issues and further recommendations to follow. MMODL / IJN: [id number] /
[2019-04-14 22:01] VITALS: RESP 16
[2019-04-15] MEDS: LEVOTHYROXINE 125 MCG TAB PO SCH (05:22)
[2019-04-15] MEDS: SODIUM CHLORIDE 0.9% 1,000 ML IV SCH (05:23)
[2019-04-15 07:01] VITALS: BP 176/81; PULSE 71; TEMP 97.7
[2019-04-15] MEDS: LIPASE 5,000/PROTEASE 17,000/AMYLASE 24,000 PO SCH (07:04)
[2019-04-15] MEDS: HYDROCORTISONE SUCCINATE 100 MG/2 ML VIAL IV SCH (07:04)
[2019-04-15] MEDS: HEPARIN SODIUM,PORCINE 5,000 UNIT/ML 1 ML VIAL SQ SCH (07:04)
[2019-04-15] MEDS ORDERED: PANTOPRAZOLE 40 MG TABLET PO SCH (07:30)
[2019-04-15 08:35] LABS: Basophils % (A) 0 %; Eosinophils % (A) 0 %; HCT 35.4 % (39.0-53.0); HGB 11.7 gm/dL (13.0-17.5); Lymphocytes # (A) 1.2 k/uL (1.0-4.8); Lymphocytes % (A) 15 %; MCH 33.1 pg (25.0-35.0); MCHC 32.9 g/dL (31.0-37.0); MCV 100.7 fL (80.0-100.0); Macrocytosis Slight; Monocytes # (A) 0.3 k/uL (0-1.0); Monocytes % (A) 4 %; Neutrophils # (A) 6.1 k/uL (1.3-7.7); Neutrophils % (A) 79 %; Platelet Count 186 k/uL (150-450); RBC 3.52 m/uL (4.30-5.90); RDW 14.2 % (11.5-15.5); WBC 7.7 k/uL (3.8-10.6)
[2019-04-15 08:50] LABS: Calcium 8.8 mg/dL (8.4-10.2); Potassium 4.6 mmol/L (3.5-5.1)
--- NOTE | 2019-04-15 13:06 | P.PN ---
Progress Note - Text Progress Note Date: 04/15/19 Mr. Wright is feeling much better today. He has no complaints. He is afebrile with stable vital signs. The urine culture showed a Klebsiella UTI, which is pansensitive. It would be my recommendation that he be discharged home on oral antibiotics. His planned cystoscopy and retrograde pyelograms later this week will be canceled in view of the UTI, and he will follow up with me in 2 weeks. Please notify me if I can be of any further assistance.
--- NOTE | 2019-04-15 14:09 | P.DS ---
Providers Date of admission: 04/14/19 14:06 Expected date of discharge: 04/15/19 Attending physician: Kristina Gunn Consults: 04/13/19 03:13 Consult Physician Urgent Consulting Provider: Enoc Downey Consult Reason/Comments: urinary retention est patient Do you want consulting provider notified?: Yes, Notify in am Primary care physician: Vanessa Oneill [facility] Course: Final diagnosis Acute urinary tract infection present on admission, generalized weakness, rule out hypoadrenalism Low TSH with normal free T3 and free T4, possibly sick euthyroid syndrome Anemia, normocytic anemia of chronic disease Hyponatremia History of self-catheterization History of prostate cancer with radiation, urinary retention History of dementia Hypothyroidism Adenoidectomy history History of tonsillectomy Remote history of nicotine dependence Discharge disposition Patient is being discharged in stable condition with guarded prognosis to home and will follow-up with Dr. Downey in the office in one week as discussed. Patient will go home on an oral antibiotic Ceftin 500 mg twice daily for the next 5 days. History of present illness This is an 83-year-old male that was admitted with weakness and had features of a urinary tract infection. The cultures originally were growing gram negatives bacilli have finalized today with Klebsiella oxytoca which is pansensitive. Patient will be sent home on oral Ceftin 500 mg twice daily for 5 days. Patient denies any chest pain, shortness of breath, or palpitations at this time. Patient is afebrile. Patient was working with PT/OT today and was able to walk the halls with a steady gait and no walker with no difficulties. Patient will be returning home as he resides with his who takes care of him. is at the bedside and verbalized understanding of the treatment plan and agrees with the plan. Patient states that he has plenty of supplies for his self- catheterization at home. Patient denies any weakness, lightheadedness, d izziness, nausea, or vomiting at this time. Patient is eager to go home. Patient is currently stable with much improvement. On exam vital signs are stable. Temp is 97.7F, pulse is 71, respirations are 16, blood pressure is 176/81, oxygen saturation is 95% on room air. On exam cardio S1 and S2 are normal. Respiratory system is diminished in the bases otherwise is clear to auscultation. Abdomen is soft, non-tender, and obese. Nervous system shows no focal deficits and gait is steady. Please refer to medication reconciliation sheet for a list of medications. Patient Condition at Discharge: Stable Plan - Discharge Summary New Discharge Prescriptions: New Cefuroxime Axetil [Ceftin] 500 mg PO BID 5 Days #10 tab Continue Hydrocortisone [Cortef] 10 mg PO DAILY@1400 Hydrocortisone [Cortef] 20 mg PO QAM Vit C/E/Zn/Coppr/Lutein/Zeaxan [Preservision Areds 2 Softgel] 1 cap PO BID L.acidoph,Paracasei, B.lactis [Probiotic] 1 cap PO DAILY Levothyroxine Sodium [Synthroid] 125 mcg PO DAILY Discharge Medication List Hydrocortisone [Cortef] 10 mg PO DAILY@1400 07/27/17 [History] Hydrocortisone [Cortef] 20 mg PO QAM 07/27/17 [History] Vit C/E/Zn/Coppr/Lutein/Zeaxan [Preservision Areds 2 Softgel] 1 cap PO BID 03/18/18 [History] L.acidoph,Paracasei, B.lactis [Probiotic] 1 cap PO DAILY 04/17/18 [History] Levothyroxine Sodium [Synthroid] 125 mcg PO DAILY 02/25/19 [History] Cefuroxime Axetil [Ceftin] 500 mg PO BID 5 Days #10 tab 04/15/19 [Rx] Follow up Appointment(s)/Referral(s): Enoc Doweny MD [STAFF PHYSICIAN] - 2 Weeks Vanessa Oneill MD [Primary Care Provider] - 1-2 days Activity/Diet/Wound Care/Special Instructions: Activity Limited until follow-up Follow-up with Dr. Downey in the office in one week as discussed Continue complete course of antibiotics Continue current diet Discharge Disposition: HOME SELF-CARE
== END 2019-04-15 14:43 | disposition home or self-care (01) | DRG 699 ==
LOC: EC 21:54 → 4MS4W 04-13 03:13 → OBSVTOIN 04-14 14:06
PROVIDERS: ADMIT Hospitalist; ATTEND Hospitalist
DX: T83.518A Infection and inflammatory reaction due to other urinary catheter, initial encounter (principal); N13.6 Pyonephrosis; E87.1 Hypo-osmolality and hyponatremia; B96.1 Klebsiella pneumoniae [K. pneumoniae] as the cause of diseases classified elsewhere; D63.8 Anemia in other chronic diseases classified elsewhere; F03.90 Unspecified dementia, unspecified severity, without behavioral disturbance, psychotic disturbance, mood disturbance, and anxiety; E03.9 Hypothyroidism, unspecified; E29.1 Testicular hypofunction; H91.90 Unspecified hearing loss, unspecified ear; H54.7 Unspecified visual loss; E66.9 Obesity, unspecified; H35.30 Unspecified macular degeneration; R32 Unspecified urinary incontinence; R33.9 Retention of urine, unspecified; E23.7 Disorder of pituitary gland, unspecified; E07.81 Sick-euthyroid syndrome; Z68.32 Body mass index [BMI] 32.0-32.9, adult; Z79.890 Hormone replacement therapy; Z79.52 Long term (current) use of systemic steroids; Z92.3 Personal history of irradiation; Z85.46 Personal history of malignant neoplasm of prostate; Z87.440 Personal history of urinary (tract) infections; Z87.891 Personal history of nicotine dependence; Z80.0 Family history of malignant neoplasm of digestive organs; Z82.3 Family history of stroke; Y84.6 Urinary catheterization as the cause of abnormal reaction of the patient, or of later complication, without mention of misadventure at the time of the procedure; W01.0XXA Fall on same level from slipping, tripping and stumbling without subsequent striking against object, initial encounter; Y92.009 Unspecified place in unspecified non-institutional (private) residence as the place of occurrence of the external cause
CPT/HCPCS: 36415; 51701; 71046; 80048; 80053; 81001; 82533; 83605; 83735; 84439; 84443; 84481; 84484; 85025; 85610; 85730; 87040; 87077; 87086; 87186; 93005; 96361; 96374; 99285

== ENCOUNTER 2019-10-25 20:09 | Inpatient (IN) | payer MEDICARE, BC ==
--- NOTE | 2019-10-25 20:57 | ED ---
General Adult HPI - General Chief complaint: Fever Stated complaint: Weakness Time Seen by Provider: 10/25/19 20:54 Source: patient, EMS Mode of arrival: EMS Limitations: no limitations - History of Present Illness Initial comments: Patient presents the ED by ambulance for evaluation. Patient states that he has had an intermittent fever for the past week or so. Patient denies having symptoms or any other complaints. Patient states that he self cath's himself secondary to chronic urinary retention. Patient denies any change in the color or odor of his urine. Patient denies having any pain, headache, focal neuro deficit, sore throat, neck pain or stiffness, rhinorrhea or nasal congestion, cough, chest pain, dyspnea, palpitations, dizziness, abdominal pain, nausea/vomiting/diarrhea, back or flank pain, rash, or any other symptoms or complaints. Patient states that he thinks that his gave him fever-reducing medication earlier today, but he is not sure which medication or when. - Related Data Home Medications Medication Instructions Recorded Confirmed Hydrocortisone [Cortef] 10 mg PO DAILY@1400 07/27/17 04/12/19 Hydrocortisone [Cortef] 20 mg PO QAM 07/27/17 04/12/19 Vit C/E/Zn/Coppr/Lutein/Zeaxan 1 cap PO BID 03/18/18 04/12/19 [Preservision Areds 2 Softgel] L.acidoph,Paracasei, B.lactis 1 cap PO DAILY 04/17/18 04/12/19 [Probiotic] Levothyroxine Sodium [Synthroid] 125 mcg PO DAILY 02/25/19 04/12/19 Previous Rx's Medication Instructions Recorded Cefuroxime Axetil [Ceftin] 500 mg PO BID 5 Days #10 tab 04/15/19 Allergies Allergy/AdvReac Type Severity Reaction Status Date / Time sulfamethoxazole Allergy Rash/Hives Verified 04/13/19 14:03 [From Bactrim] trimethoprim [From Bactrim] Allergy Rash/Hives Verified 04/13/19 14:03 Review of Systems ROS Statement: Those systems with pertinent positive or pertinent negative responses have been documented in the HPI. ROS Other: All systems not noted in ROS Statement are negative. Past Medical History Past Medical History: Cancer, Eye Disorder, Memory Impairment, Thyroid Disorder Additional Past Medical History / Comment(s): Prostate CA with radiation/urinary retention/self caths at 9pm and midnight and voids during daytime hours/ occasional incontinence of urine, frequent UTIs and has confusion with UTIs, sta ble pituitary mass, hyponatremia, chronic anemia, bilateral macular degeneration, hypothyroidism, pt's legs are cold all the time. History of Any Multi-Drug Resistant Organisms: Unobtainable, Other MDRO Past Surgical History: Adenoidectomy, Tonsillectomy Additional Past Surgical History / Comment(s): EGD/colonoscopy. Past Anesthesia/Blood Transfusion Reactions: No Reported Reaction Past Psychological History: No Psychological Hx Reported Smoking Status: Former smoker Past Alcohol Use History: None Reported Past Drug Use History: None Reported - Past Family History Father Family Medical History: Cancer Additional Family Medical History / Comment(s): Colon CA, at 74. Mother Family Medical History: No Reported History, CVA/TIA Additional Family Medical History / Comment(s): Mother of a CVA at the age of 83yrs. General Exam Limitations: no limitations General appearance: alert, in no apparent distress Head exam: Present: atraumatic, normocephalic Eye exam: Present: normal appearance, EOMI ENT exam: Present: normal oropharynx, mucous membranes moist Neck exam: Present: other (No nuchal rigidity; trachea is in midline). Absent: tenderness, meningismus Respiratory exam: Present: normal lung sounds bilaterally. Absent: respiratory distress, wheezes, rales, rhonchi Cardiovascular Exam: Present: regular rate, normal rhythm, normal heart sounds, other (Normal radial pulses bilaterally) GI/Abdominal exam: Present: soft. Absent: distended, tenderness, guarding exam: Present: normal inspection Extremities exam: Present: normal inspection, full ROM. Absent: tenderness, pedal edema, calf tenderness Back exam: Present: normal inspection. Absent: CVA tenderness (R), CVA tenderness (L) Neurological exam: Present: alert, oriented X3. Absent: motor sensory deficit Psychiatric exam: Present: normal affect, normal mood Skin exam: Present: warm, dry, intact, normal color. Absent: rash Course Vital Signs 10/25/19 20:16 Temperature 100.3 F H Pulse Rate 85 Respiratory 18 Rate Blood Pressure 195/73 O2 Sat by Pulse 96 Oximetry - Reevaluation(s) Reevaluation #1: 10/25/19 22:57 Case, H&P, test results and ED management were discussed with Dr. Sargent (hospitalist). She accepts hospital admission. She has no further recommendations at this time. 10/25/19 23:02 Patient denies development of any new symptoms while in the ED. Patient remains alert and breathing comfortably with a normal room air oxygen saturation. Patient is not hypotensive or tachycardic. Patient is aware of his test results, and he agrees with hospital admission at this time. Medical Decision Making - Medical Decision Making I suspect that the patient's febrile illness is likely secondary to a UTI given his UA findings. Patient has been hemodynamically stable while in the ED. Patient's prior urine culture reports were reviewed. Patient was given a dose of IV Rocephin in the ED. Patient's family reports that the patient has been very weak, and they've been unable to care for him at home given his weakness. Dr. Sargent has accepted hospital admission. - Lab Data Result diagrams: 10/25/19 22:05 10/25/19 22:05 Lab Results 10/25/19 10/25/19 10/25/19 Range/Units 21:37 22:05 22:05 WBC 7.3 (3.8-10.6) k/uL RBC 3.48 L (4.30-5.90) m/uL Hgb 11.6 L (13.0-17.5) gm/dL Hct 33.9 L (39.0-53.0) % MCV 97.6 (80.0-100.0) fL MCH 33.4 (25.0-35.0) pg MCHC 34.2 (31.0-37.0) g/dL RDW 12.9 (11.5-15.5) % Plt Count 135 L (150-450) k/uL Neutrophils % 73 % Lymphocytes % 18 % Monocytes % 6 % Eosinophils % 2 % Basophils % 0 % Neutrophils # 5.3 (1.3-7.7) k/uL Lymphocytes # 1.3 (1.0-4.8) k/uL Monocytes # 0.4 (0-1.0) k/uL Eosinophils # 0.1 (0-0.7) k/uL Basophils # 0.0 (0-0.2) k/uL Sodium (137-145) mmol/L Potassium (3.5-5.1) mmol/L Chloride (98-107) mmol/L Carbon Dioxide (22-30) mmol/L Anion Gap mmol/L BUN (9-20) mg/dL Creatinine (0.66-1.25) mg/dL Est GFR (CKD-EPI)AfAm (>60 ml/min/1.73 sqM) Est GFR (CKD-EPI)NonAf (>60 ml/min/1.73 sqM) Glucose (74-99) mg/dL Plasma Lactic Acid Garland 0.8 (0.7-2.0) mmol/L Calcium (8.4-10.2) mg/dL Total Bilirubin (0.2-1.3) mg/dL AST (17-59) U/L ALT (4-49) U/L Alkaline Phosphatase (38-126) U/L Total Protein (6.3-8.2) g/dL Albumin (3.5-5.0) g/dL Urine Color Light Yellow Urine Appearance Clear (Clear) Urine pH 6.0 (5.0-8.0) Ur Specific Jackson 1.008 (1.001-1.035) Urine Protein Negative (Negative) Urine Glucose (UA) Negative (Negative) Urine Ketones Negative (Negative) Urine Blood Small H (Negative) Urine Nitrite Negative (Negative) Urine Bilirubin Negative (Negative) Urine Urobilinogen <2.0 (<2.0) mg/dL Ur Leukocyte Esterase Large H (Negative) Urine RBC 4 (0-5) /hpf Urine WBC 32 H (0-5) /hpf Ur Squamous Epith Cells <1 (0-4) /hpf Urine Bacteria Rare H (None) /hpf Influenza Type A RNA (Not Detectd) Influenza Type B (PCR) (Not Detectd) 10/25/19 10/25/19 Range/Units 22:05 22:05 WBC (3.8-10.6) k/uL RBC (4.30-5.90) m/uL Hgb (13.0-17.5) gm/dL Hct (39.0-53.0) % MCV (80.0-100.0) fL MCH (25.0-35.0) pg MCHC (31.0-37.0) g/dL RDW (11.5-15.5) % Plt Count (150-450) k/uL Neutrophils % % Lymphocytes % % Monocytes % % Eosinophils % % Basophils % % Neutrophils # (1.3-7.7) k/uL Lymphocytes # (1.0-4.8) k/uL Monocytes # (0-1.0) k/uL Eosinophils # (0-0.7) k/uL Basophils # (0-0.2) k/uL Sodium 134 L (137-145) mmol/L Potassium 4.0 (3.5-5.1) mmol/L Chloride 104 (98-107) mmol/L Carbon Dioxide 25 (22-30) mmol/L Anion Gap 5 mmol/L BUN 15 (9-20) mg/dL Creatinine 0.78 (0.66-1.25) mg/dL Est GFR (CKD-EPI)AfAm >90 (>60 ml/min/1.73 sqM) Est GFR (CKD-EPI)NonAf 83 (>60 ml/min/1.73 sqM) Glucose 98 (74-99) mg/dL Plasma Lactic Acid Garland (0.7-2.0) mmol/L Calcium 7.7 L (8.4-10.2) mg/dL Total Bilirubin 0.5 (0.2-1.3) mg/dL AST 20 (17-59) U/L ALT 20 (4-49) U/L Alkaline Phosphatase 71 (38-126) U/L Total Protein 5.7 L (6.3-8.2) g/dL Albumin 3.0 L (3.5-5.0) g/dL Urine Color Urine Appearance (Clear) Urine pH (5.0-8.0) Ur Specific Jackson (1.001-1.035) Urine Protein (Negative) Urine Glucose (UA) (Negative) Urine Ketones (Negative) Urine Blood (Negative) Urine Nitrite (Negative) Urine Bilirubin (Negative) Urine Urobilinogen (<2.0) mg/dL Ur Leukocyte Esterase (Negative) Urine RBC (0-5) /hpf Urine WBC (0-5) /hpf Ur Squamous Epith Cells (0-4) /hpf Urine Bacteria (None) /hpf Influenza Type A RNA Not Detected (Not Detectd) Influenza Type B (PCR) Not Detected (Not Detectd) - Radiology Data Radiology results: image reviewed (Chest x-ray is negative) Disposition Clinical Impression: Acute febrile illness, Urinary tract infection Disposition: ADMITTED IP TO THIS HOSP Condition: Stable Is patient prescribed a controlled substance at d/c from ED?: No Referrals: Vanessa Oneill MD [Primary Care Provider] - 1-2 days Time of Disposition: 22:57
[2019-10-25 21:59] LABS: Appearance,Urine Clear (Clear); Bacteria,Urine Rare /hpf; Bilirubin,Urine Negative (Negative); Blood,Urine Small (Negative); Color,Urine Light Yellow; Glucose,Urine (UA) Negative (Negative); Ketones,Urine Negative (Negative); Leukocyte Esterase,Urine Large (Negative); Nitrite,Urine Negative (Negative); Protein,Urine Negative (Negative); RBC,Urine 4 /hpf (0-5); Specific Gravity,Urine 1.008 (1.001-1.035); Squamous Epithelial Cell,Urine <1 /hpf (0-4); Urobilinogen,Urine <2.0 mg/dL (<2.0); WBC,Urine 32 /hpf (0-5)
[2019-10-25 22:23] LABS: Basophils % (A) 0 %; Eosinophils # (A) 0.1 k/uL (0-0.7); Eosinophils % (A) 2 %; HCT 33.9 % (39.0-53.0); HGB 11.6 gm/dL (13.0-17.5); Lymphocytes # (A) 1.3 k/uL (1.0-4.8); Lymphocytes % (A) 18 %; MCH 33.4 pg (25.0-35.0); MCHC 34.2 g/dL (31.0-37.0); MCV 97.6 fL (80.0-100.0); Monocytes # (A) 0.4 k/uL (0-1.0); Monocytes % (A) 6 %; Neutrophils # (A) 5.3 k/uL (1.3-7.7); Neutrophils % (A) 73 %; Platelet Count 135 k/uL (150-450); RBC 3.48 m/uL (4.30-5.90); RDW 12.9 % (11.5-15.5); WBC 7.3 k/uL (3.8-10.6)
[2019-10-25 22:34] LABS: ALT 20 U/L (4-49); AST 20 U/L (17-59); African American GFR (CKD) >90 (>60 ml/min/1.73 sqM); Alkaline Phosphatase 71 U/L (38-126); Anion Gap 5 mmol/L; Blood Urea Nitrogen 15 mg/dL (9-20); Calcium 7.7 mg/dL (8.4-10.2); Carbon Dioxide 25 mmol/L (22-30); Chloride 104 mmol/L (98-107); Glucose 98 mg/dL (74-99); Non-African American GFR(CKD) 83 (>60 ml/min/1.73 sqM); Sodium 134 mmol/L (137-145); Total Bilirubin 0.5 mg/dL (0.2-1.3); Total Protein 5.7 g/dL (6.3-8.2)
--- NOTE | 2019-10-25 22:50 | XR ---
EXAMINATION TYPE: XR chest 2V DATE OF EXAM: 10/25/2019 COMPARISON: 04/12/2019 HISTORY: Weakness TECHNIQUE: FINDINGS: Heart and mediastinum are normal. Lungs are clear of consolidation. There is no heart failu re. Costophrenic angles are clear. Bony thorax is intact. There is some arthritic change in the shoul chalo joint. IMPRESSION: No active cardiopulmonary disease. No change. Normal heart.
[2019-10-25] MEDS ORDERED: ACETAMINOPHEN TAB 325 MG TAB PO PRN (22:58)
[2019-10-25] MEDS: SODIUM CHLORIDE 0.9% 1,000 ML IV SCH (23:23)
[2019-10-26] MEDS: LEVOTHYROXINE 125 MCG TAB PO SCH (05:51)
[2019-10-26 06:58] LABS: Basophils % (A) 0 %; Eosinophils # (A) 0.1 k/uL (0-0.7); Eosinophils % (A) 1 %; HCT 33.8 % (39.0-53.0); HGB 11.1 gm/dL (13.0-17.5); Lymphocytes # (A) 1.4 k/uL (1.0-4.8); Lymphocytes % (A) 24 %; MCH 32.1 pg (25.0-35.0); MCHC 32.9 g/dL (31.0-37.0); MCV 97.7 fL (80.0-100.0); Mean Platelet Volume 6.7; Monocytes # (A) 0.5 k/uL (0-1.0); Monocytes % (A) 8 %; Neutrophils # (A) 3.7 k/uL (1.3-7.7); Neutrophils % (A) 63 %; Platelet Count 144 k/uL (150-450); RBC 3.46 m/uL (4.30-5.90); RDW 12.9 % (11.5-15.5); WBC 5.8 k/uL (3.8-10.6)
[2019-10-26 07:10] LABS: ALT 18 U/L (4-49); AST 19 U/L (17-59); African American GFR (CKD) >90 (>60 ml/min/1.73 sqM); Albumin 2.9 g/dL (3.5-5.0); Alkaline Phosphatase 71 U/L (38-126); Anion Gap 4 mmol/L; Blood Urea Nitrogen 12 mg/dL (9-20); Calcium 7.9 mg/dL (8.4-10.2); Carbon Dioxide 26 mmol/L (22-30); Chloride 106 mmol/L (98-107); Glucose 87 mg/dL (74-99); Non-African American GFR(CKD) 79 (>60 ml/min/1.73 sqM); Potassium 3.8 mmol/L (3.5-5.1); Sodium 136 mmol/L (137-145); Total Bilirubin 0.5 mg/dL (0.2-1.3); Total Protein 5.7 g/dL (6.3-8.2)
[2019-10-26] MEDS ORDERED: CEFDINIR 300 MG CAP PO SCH (09:00)
[2019-10-26] MEDS: LACTOBACILLUS ACIDOPH & BULGAR 1 EACH PACKET PO SCH (11:19)
[2019-10-26] MEDS: HYDROCORTISONE 10 MG TAB PO SCH (11:19)
--- NOTE | 2019-10-26 12:28 | P.HPIM ---
History of Present Illness 82-year-old with known history of multiple UTIs in the pastlast one being 04/04/2019 had Klebsiella oxytoca which is pansensitive patient does straight catheterization at home. Patient came to ER with complaints of for generalized weakness tiredness patient's family is unable to take care of him he shouldn't does have baseline confusion due to's dementia, although patient was having on and off fevers low-grade fever. Patient denied any flulike symptoms patient denied any suprapubic pain dysuria or increased urinary frequency cough chest x- ray did not show any pneumonia. Patient confusion is at his baseline UA is slightly abnormal with some minimal leukocyte esterase in the few white blood cell counts not really impressive for UTI although I cannot really explain his fever and patient is high risk for urinary tract infection because of which I'll continue with IV antibiotics and infectious disease will be consulted. Review of Systems REVIEW OF SYSTEMS: CONSTITUTIONAL: generalized fatigue fever and malaise HEENT: No recent visual problems or hearing problems. Denied any sore throat. CARDIOVASCULAR: No chest pain, orthopnea, PND, no palpitations, no syncope. PULMONARY: No shortness of breath, no cough, no hemoptysis. GASTROINTESTINAL: No diarrhea, no nausea, no vomiting, no abdominal pain. NEUROLOGICAL: No headaches, no weakness, no numbness. HEMATOLOGICAL: Denies any bleeding or petechiae. GENITOURINARY: Denies any burning micturition, frequency, or urgency. MUSCULOSKELETAL/RHEUMATOLOGICAL: Denies any joint pain, swelling, or any muscle pain. ENDOCRINE: Denies any polyuria or polydipsia. The rest of the 14-point review of systems is negative. Past Medical History Past Medical History: Cancer, Eye Disorder, Memory Impairment, Thyroid Disorder Additional Past Medical History / Comment(s): Prostate CA with radiation/urinary retention/self caths at 9pm and midnight and voids during daytime hours/ occasional incontinence of urine, frequent UTIs and has confusion with UTIs, stable pituitary mass, hyponatremia, chronic anemia, bilateral macular degeneration, hypothyroidism, pt's legs are cold all the time. History of Any Multi-Drug Resistant Organisms: Unobtainable, Other MDRO Past Surgical History: Adenoidectomy, Tonsillectomy Additional Past Surgical History / Comment(s): EGD/colonoscopy. Past Anesthesia/Blood Transfusion Reactions: No Reported Reaction Past Psychological History: No Psychological Hx Reported Additional Psychological History / Comment(s): and lives in the family home. 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 No international travel. No current animal exposures. Pt has a cane, walker and 3 wheeled electric scooter. He drives short distances. His spouse drives. 3 adult children live nearby and are helpful. Smoking Status: Never smoker Past Alcohol Use History: None Reported Additional Past Alcohol Use History / Comment(s): Patient was a smoker 3 packs per day. He started smoking in 1947 and quit in 1961. No illicit drug use or alcohol use. Past Drug Use History: None Reported - Past Family History Father Family Medical History: Cancer Additional Family Medical History / Comment(s): Colon CA, at 74. Mother Family Medical History: No Reported History, CVA/TIA Additional Family Medical History / Comment(s): Mother of a CVA at the age of 83yrs. Medications and Allergies Home Medications Medication Instructions Recorded Confirmed Type Hydrocortisone [Cortef] 10 mg PO DAILY@1400 07/27/17 04/12/19 History Hydrocortisone [Cortef] 20 mg PO QAM 07/27/17 04/12/19 History Vit C/E/Zn/Coppr/Lutein/Zeaxan 1 cap PO BID 03/18/18 04/12/19 History [Preservision Areds 2 Softgel] L.acidoph,Paracasei, B.lactis 1 cap PO DAILY 04/17/18 04/12/19 History [Probiotic] Levothyroxine Sodium [Synthroid] 125 mcg PO DAILY 02/25/19 04/12/19 History Cefuroxime Axetil [Ceftin] 500 mg PO BID 5 Days #10 tab 04/15/19 Rx Allergies Allergy/AdvReac Type Severity Reaction Status Date / Time sulfamethoxazole Allergy Rash/Hives Verified 04/13/19 14:03 [From Bactrim] trimethoprim [From Bactrim] Allergy Rash/Hives Verified 04/13/19 14:03 Physical Exam Vitals: Vital Signs Temp Pulse Pulse Resp BP BP Pulse Ox 10/26/19 08:05 98.3 F 84 18 146/74 95 10/26/19 07:10 18 10/26/19 00:24 98.4 F 68 16 176/77 96 10/25/19 23:24 99.4 F 65 162/76 97 10/25/19 20:16 100.3 F H 85 18 195/73 96 Intake and Output 10/25/19 10/26/19 10/26/19 22:59 06:59 14:59 Output Total 750 Balance -750 Output: Urine 750 Straight 375 Other: Voiding Method Bedside Commode Bedside Commode Self-Catheterization Diaper Self-Catheterization # Voids 1 Weight 90.718 kg 90.718 kg PHYSICAL EXAMINATION: GENERAL: The patient is alert and oriented x3, not in any acute distress. Well developed, well nourished. HEENT: Pupils are round and equally reacting to light. EOMI. No scleral icterus. No conjunctival pallor. Normocephalic, atraumatic. No pharyngeal erythema. No th yromegaly. CARDIOVASCULAR: S1 and S2 present. No murmurs, rubs, or gallops. PULMONARY: Chest is clear to auscultation, no wheezing or crackles. ABDOMEN: Soft, nontender, nondistended, normoactive bowel sounds. No palpable organomegaly. MUSCULOSKELETAL: No joint swelling or deformity. EXTREMITIES: No cyanosis, clubbing, or pedal edema. NEUROLOGICAL: Gross neurological examination did not reveal any focal deficits. SKIN: No rashes. Results CBC & Chem 7: 10/26/19 06:15 10/26/19 06:15 Labs: Abnormal Lab Results - Last 24 Hours (Table) 10/25/19 10/25/19 10/25/19 Range/Units 21:37 22:05 22:05 RBC 3.48 L (4.30-5.90) m/uL Hgb 11.6 L (13.0-17.5) gm/dL Hct 33.9 L (39.0-53.0) % Plt Count 135 L (150-450) k/uL Sodium 134 L (137-145) mmol/L Calcium 7.7 L (8.4-10.2) mg/dL Total Protein 5.7 L (6.3-8.2) g/dL Albumin 3.0 L (3.5-5.0) g/dL Urine Blood Small H (Negative) Ur Leukocyte Esterase Large H (Negative) Urine WBC 32 H (0-5) /hpf Urine Bacteria Rare H (None) /hpf 10/26/19 10/26/19 Range/Units 06:15 06:15 RBC 3.46 L (4.30-5.90) m/uL Hgb 11.1 L (13.0-17.5) gm/dL Hct 33.8 L (39.0-53.0) % Plt Count 144 L (150-450) k/uL Sodium 136 L (137-145) mmol/L Calcium 7.9 L (8.4-10.2) mg/dL Total Protein 5.7 L (6.3-8.2) g/dL Albumin 2.9 L (3.5-5.0) g/dL Urine Blood (Negative) Ur Leukocyte Esterase (Negative) Urine WBC (0-5) /hpf Urine Bacteria (None) /hpf Microbiology - Last 24 Hours (Table) 10/25/19 21:37 Urine Culture - Preliminary Urine,Voided Thrombosis Risk Factor Assmnt - Choose All That Apply Any of the Below Risk Factors Present?: No Other Risk Factors: Yes Each Risk Factor Represents 3 Points: Age 75 years or older Other congenital or acquired thrombophilia - If yes, enter type in comment: No Thrombosis Risk Factor Assessment Total Risk Factor Score: 3 Thrombosis Risk Factor Assessment Level: Moderate Risk Assessment and Plan Plan: -possibility of urinary tract infection or systemic inflammatory response syndrome patient will continued on antibiotics and infectious disease was consulted urine analysis is not really impressive for UTI. -Generalized weakness and fatigue: Secondary to systemic inflammatory response as mentioned above. Notably will be consulted -chronic urinary retention patient does straight catheterization with the help of the family at about 4 times a day. -senile or vascular dementia patient memory status is at his baseline -Hypothyroidism -History of prostate cancer with multiple UTIs in the past
[2019-10-26] MEDS: SODIUM CHLORIDE 0.9% 1,000 ML IV SCH (19:00)
[2019-10-26] MEDS: HEPARIN SODIUM,PORCINE 5,000 UNIT/ML 1 ML VIAL SQ SCH (19:43)
[2019-10-26] MEDS: FAMOTIDINE 20 MG TAB PO SCH (19:43)
--- NOTE | 2019-10-26 22:24 | P.CONS ---
History of Present Illness - Reason for Consult Consult date: 10/26/19 Fever Requesting physician: Sam Cortez - Chief Complaint Fever off and on x few days - History of Present Illness Patient is 83-year-old male with a past medical history significant for urinary retention requiring self-catheterization in this patient who did have a history of recurrent UTIs patient has been brought into the ER at [facility] for evaluation of fever off and on for the last few days, fever has been as high as 101F at home patient also notices her urine to be getting more cloudy and foul-smelling but is no hematuria did have some suprapubic discomfort but no flank pain patient has felt nauseated with an episode of vomiting this morning denies having any diarrhea no chest pain shortness of breath or cough with the symptoms the patient has been able 8 by the ER physician on arrival to the ER the patient did have fever of 100.3F A she did have a positive UA as the patient 6 was negative for any pneumonia patient was admitted to the hospital infectious disease was consulted for further recommendation regarding antibiotic therapy Review of Systems Positive point has been mentioned in the HPI rest of the systems are negative Past Medical History Past Medical History: Cancer, Eye Disorder, Memory Impairment, Thyroid Disorder Additional Past Medical History / Comment(s): Prostate CA with radiation/urinary retention/self caths at 9pm and midnight and voids during daytime hours/ occasional incontinence of urine, frequent UTIs and has confusion with UTIs, stable pituitary mass, hyponatremia, chronic anemia, bilateral macular degeneration, hypothyroidism, pt's legs are cold all the time. History of Any Multi-Drug Resistant Organisms: Unobtainable, Other MDRO Past Surgical History: Adenoidectomy, Tonsillectomy Additional Past Surgical History / Comment(s): EGD/colonoscopy. Past Anesthesia/Blood Transfusion Reactions: No Reported Reaction Past Psychological History: No Psychological Hx Reported Additional Psychological History / Comment(s): and lives in the family home. 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 No international travel. No current animal exposures. Pt has a cane, walker and 3 wheeled electric scooter. He drives short distances. His spouse drives. 3 adult children live nearby and are helpful. Smoking Status: Never smoker Past Alcohol Use History: None Reported Additional Past Alcohol Use History / Comment(s): Patient was a smoker 3 packs per day. He started smoking in 1947 and quit in 1962. No illicit drug use or alcohol use. Past Drug Use History: None Reported - Past Family History Father Family Medical History: Cancer Additional Family Medical History / Comment(s): Colon CA, at 74. Mother Family Medical History: No Reported History, CVA/TIA Additional Family Medical History / Comment(s): Mother of a CVA at the age of 83yrs. Medications and Allergies Home Medications Medication Instructions Recorded Confirmed Type Vit C/E/Zn/Coppr/Lutein/Zeaxan 1 cap PO BID 03/18/18 10/26/19 History [Preservision Areds 2 Softgel] L.acidoph,Paracasei, B.lactis 1 cap PO DAILY 04/17/18 10/26/19 History [Probiotic] Levothyroxine Sodium [Synthroid] 125 mcg PO DAILY 02/25/19 10/26/19 History ALPRAZolam [Xanax] 0.25 mg PO HS PRN 10/26/19 10/26/19 History Hydrocortisone 10 mg PO HS 10/26/19 10/26/19 History Hydrocortisone 20 mg PO QAM 10/26/19 10/26/19 History Allergies Allergy/AdvReac Type Severity Reaction Status Date / Time sulfamethoxazole Allergy Rash/Hives Verified 10/26/19 13:08 [From Bactrim] trimethoprim [From Bactrim] Allergy Rash/Hives Verified 10/26/19 13:08 Physical Exam Vitals: Vital Signs Temp Pulse Pulse Resp BP BP Pulse Ox 10/26/19 08:05 98.3 F 84 18 146/74 95 10/26/19 07:10 18 10/26/19 00:24 98.4 F 68 16 176/77 96 10/25/19 23:24 99.4 F 65 162/76 97 10/25/19 20:16 100.3 F H 85 18 195/73 96 Intake and Output 10/25/19 10/26/19 10/26/19 22:59 06:59 14:59 Output Total 750 Balance -750 Output: Urine 750 Straight 375 Other: Voiding Method Bedside Commode Bedside Commode Self-Catheterization Diaper Self-Catheterization # Voids 1 Weight 90.718 kg 90.718 kg GENERAL DESCRIPTION: Elderly male lying in bed, no distress. No tachypnea or accessory muscle of respiration use. HEENT: Shows Pallor , no scleral icterus. Oral mucous membrane is dry. No pharyngeal erythema or thrush NECK: Trachea central, no thyromegaly. LUNGS: Unlabored breathing. Clear to auscultation anteriorly. No wheeze or crackle. HEART: S1, S2, regular rate and rhythm. No loud murmur ABDOMEN: Soft, no tenderness , guarding or rigidity, no organomegaly EXTREMITIES: No edema of feet. SKIN: No rash, no masses palpable. NEUROLOGICAL: The patient is awake, alert, oriented x3, mood and affect normal. Results CBC & Chem 7: 10/26/19 06:15 10/26/19 06:15 Labs: Abnormal Lab Results - Last 24 Hours (Table) 10/25/19 10/25/19 10/25/19 Range/Units 21:37 22:05 22:05 RBC 3.48 L (4.30-5.90) m/uL Hgb 11.6 L (13.0-17.5) gm/dL Hct 33.9 L (39.0-53.0) % Plt Count 135 L (150-450) k/uL Sodium 134 L (137-145) mmol/L Calcium 7.7 L (8.4-10.2) mg/dL Total Protein 5.7 L (6.3-8.2) g/dL Albumin 3.0 L (3.5-5.0) g/dL Urine Blood Small H (Negative) Ur Leukocyte Esterase Large H (Negative) Urine WBC 32 H (0-5) /hpf Urine Bacteria Rare H (None) /hpf 10/26/19 10/26/19 Range/Units 06:15 06:15 RBC 3.46 L (4.30-5.90) m/uL Hgb 11.1 L (13.0-17.5) gm/dL Hct 33.8 L (39.0-53.0) % Plt Count 144 L (150-450) k/uL Sodium 136 L (137-145) mmol/L Calcium 7.9 L (8.4-10.2) mg/dL Total Protein 5.7 L (6.3-8.2) g/dL Albumin 2.9 L (3.5-5.0) g/dL Urine Blood (Negative) Ur Leukocyte Esterase (Negative) Urine WBC (0-5) /hpf Urine Bacteria (None) /hpf Microbiology - Last 24 Hours (Table) 10/25/19 21:37 Urine Culture - Preliminary Urine,Voided Assessment and Plan Assessment: 1-patient presented to hospital with fever foul-smelling cloudy urine and did have an episode of vomiting with a positive UA likely representing a symptomatic urinary tract infection patient currently with no other clinical focus for this fever with no respiratory symptoms chest x-ray has been negative abdominal was ultimately examination and no evidence of any cellulitis or joint swelling 2-patient with advanced age and Bactrim ALLERGIES limiting the antibiotics choices (1) Urinary tract infection Current Visit: Yes Status: Acute Code(s): N39.0 - URINARY TRACT INFECTION, SITE NOT SPECIFIED SNOMED Code(s): 64449088 Plan: 1- Rocephin 1 g IV piggyback daily to continue 2-gentle IV fluid We will follow on clinical condition and cultures to further adjust medication if needed Thank you for this consultation will follow this patient with you Time with Patient: Greater than 30
[2019-10-27] MEDS: LEVOTHYROXINE 125 MCG TAB PO SCH (05:41)
[2019-10-27] MEDS: LACTOBACILLUS ACIDOPH & BULGAR 1 EACH PACKET PO SCH (08:30)
[2019-10-27] MEDS: HYDROCORTISONE 10 MG TAB PO SCH (08:30)
[2019-10-27] MEDS: FAMOTIDINE 20 MG TAB PO SCH ×2 (08:31→20:08)
[2019-10-27] MEDS: HEPARIN SODIUM,PORCINE 5,000 UNIT/ML 1 ML VIAL SQ SCH ×2 (08:31→20:08)
--- NOTE | 2019-10-27 12:35 | P.PN ---
Subjective Progress Note Date: 10/27/19 Principal diagnosis: 82-year-old with known history of multiple UTIs in the pastlast one being 04/04/2019 had Klebsiella oxytoca which is pansensitive patient does straight catheterization at home. Patient came to ER with complaints of for generalized weakness tiredness patient's family is unable to take care of him he shouldn't does have baseline confusion due to's dementia, although patient was having on and off fevers low-grade fever. Patient denied any flulike symptoms patient denied any suprapubic pain dysuria or increased urinary frequency cough chest x- ray did not show any pneumonia. Patient confusion is at his baseline UA is slightly abnormal with some minimal leukocyte esterase in the few white blood cell counts not really impressive for UTI although I cannot really explain his fever and patient is high risk for urinary tract infection because of which I'll continue with IV antibiotics and infectious disease will be consulted. 10/27/2019 Patient is seen and evaluated in follow-up today with no acute overnight issues. Urine cultures are pending thus far. Patient remains on Rocephin 1 g daily and will continue at this time while awaiting for cultures to finalized. Infectious disease is following. Blood cultures have remained negative. Patient appears to be more alert and oriented today and states he would like to go home today. Discussed with the patient about waiting for cultures. Objective - Vital Signs Vital signs: Vital Signs Temp 98.6 F 10/27/19 07:00 Pulse 68 10/27/19 08:31 Resp 18 10/27/19 08:31 BP 145/73 10/27/19 07:00 Pulse Ox 94 L 10/27/19 07:00 Intake & Output 10/26/19 10/27/19 10/27/19 18:59 06:59 18:59 Intake Total 170 Output Total 20 Balance 150 Intake: Intake, IV Titration 50 Amount cefTRIAXone 1 gm In 50 Sodium Chloride 0.9% 50 ml @ 100 mls/hr IVPB Q24H [facility] Rx#:[id number] Oral 120 Output: Urine 20 Other: Voiding Method Bedside Commode Bedside Commode Bedside Commode Diaper Diaper Diaper Self-Catheterization Self-Catheterization Self-Catheterization # Voids 2 1 # Bowel Movements 1 - Exam GENERAL: The patient is alert and oriented x3, not in any acute distress. Well developed, well nourished. HEENT: Pupils are round and equally reacting to light. EOMI. No scleral icterus. No conjunctival pallor. Normocephalic, atraumatic. No pharyngeal erythema. No thyromegaly. CARDIOVASCULAR: S1 and S2 present. No murmurs, rubs, or gallops. PULMONARY: Chest is clear to auscultation, no wheezing or crackles. ABDOMEN: Soft, nontender, nondistended, normoactive bowel sounds. No palpable organomegaly. MUSCULOSKELETAL: No joint swelling or deformity. EXTREMITIES: No cyanosis, clubbing, or pedal edema. NEUROLOGICAL: Gross neurological examination did not reveal any focal deficits. SKIN: No rashes. - Labs CBC & Chem 7: 10/26/19 06:15 10/26/19 06:15 Labs: Microbiology - Last 24 Hours (Table) 10/25/19 22:05 Blood Culture - Preliminary Blood No Growth after 24 hours 10/25/19 21:37 Urine Culture - Preliminary Urine,Voided Assessment and Plan Assessment: -possibility of urinary tract infection or systemic inflammatory response syndrome patient. Patient is maintained on IV Rocephin 1 g daily and will continue until cultures are finalized. Infectious disease is following. -Generalized weakness and fatigue: Secondary to systemic inflammatory response as mentioned above. PT/OT is pending at this time -chronic urinary retention patient does straight catheterization with the help of the family at about 4 times a day. -senile or vascular dementia patient memory status is at his baseline -Hypothyroidism -History of prostate cancer with multiple UTIs in the past
[2019-10-27] MEDS: SODIUM CHLORIDE 0.9% 1,000 ML IV SCH (19:59)
[2019-10-28] MEDS: SODIUM CHLORIDE 0.9% 1,000 ML IV SCH (00:08)
--- NOTE | 2019-10-28 05:21 | PN ---
PROGRESS NOTE DATE OF SERVICE: 10/27/2019 REASON FOR FOLLOWUP: Urinary tract infection. INTERVAL HISTORY: The patient is currently afebrile, has been breathing comfortably. The patient denies having any chest pain or shortness of breath or cough. No nausea, no vomiting. No abdominal pain or any diarrhea. PHYSICAL EXAMINATION: Blood pressure 152/73 with a pulse of 58, temperature 98.9. He is 98% on room air. General description is elderly male lying in bed in no distress. RESPIRATORY SYSTEM: Unlabored breathing. Clear to auscultation anteriorly. HEART: S1, S2. Regular rate and rhythm. ABDOMEN: Soft, no tenderness. LABS: Hemoglobin is 11.1, white count of 5.8. BUN of 12, creatinine 0.87. Blood and urine culture came back negative. DIAGNOSTIC IMPRESSION AND PLAN: Patient admitted to the hospital with fever. This patient did have urinary symptoms positive likely urinary tract infection. Blood culture has been negative so far. The patient clinically responding to the Rocephin and finish therapy with short course of oral Ceftin. Monitor clinical course closely. MMODL / IJN: [id number] /
[2019-10-28] MEDS: LEVOTHYROXINE 125 MCG TAB PO SCH (05:40)
[2019-10-28 07:54] VITALS: BP 140/72; PULSE 72; RESP 18; TEMP 97.9
[2019-10-28] MEDS: HYDROCORTISONE 10 MG TAB PO SCH (07:54)
[2019-10-28] MEDS: FAMOTIDINE 20 MG TAB PO SCH (07:54)
[2019-10-28] MEDS: HEPARIN SODIUM,PORCINE 5,000 UNIT/ML 1 ML VIAL SQ SCH (07:54)
[2019-10-28] MEDS: LACTOBACILLUS ACIDOPH & BULGAR 1 EACH PACKET PO SCH (07:54)
--- NOTE | 2019-10-28 12:58 | CDI ---
Documentation Clarification Form Date: 10/28/2019 12:44:07 PM From: Lynette VencesEscobarYAMILET cain, CCDS Admit Date: 10/27/2019 07:53:00 AM Patient Name: China Foreman Visit Number: [id number] Discharge Date: ATTENTION: The Clinical Documentation Specialists (CDI) and [employer] Coding Staff appreciate your assistance in clarifying documentation. Please respond to the clarification below the line at the bottom and electronically sign. The CDI & [employer] Coding staff will review the response and follow-up if needed. Please note: Queries are made part of the Legal Health Record. If you have any questions, please contact the author of this message via ITS. Dr. Sam Cortez: Per the 10/25 ED note, 10/26 History & Physical and the 10/26 Infectious Disease Consult: this 83 yo male patient with a history of prostate cancer & urinary incontinence has a history of multiple UTIs & MDRO. He straight caths with the help of his family. Patient was admitted as an Observation patient on 10/25. Patient was admitted as an Inpatient on 10/27. History/Risk Factors: Multiple UTIs, Prostate CA status post radiation therapy, Hypothyroidism, Macular Degeneration. Clinical Indicators: Presented to the ED on 10/25 with on/off fevers, weakness & foul smelling urine. He is diagnosed with a possible UTI or SIRS per the H/P & diagnosed with a UTI per the ID Consult. UA: light yellow, clear, small blood, negative nitrite, large esterase, WBC 32. Urine Cx 10/25 (final): 10,000-49,000 Skin and/or genital deborah. LAB 10/25: WBC (7.3), Neut (73), Lactic Acid (0.8); 10/26: WBC (5.8), Neut (63), Lactic Acid (na) Treatment 10/25: IV Rocephin, continued 10/26. In your professional opinion, can you please clarify the diagnosis of UTI: UTI is ruled out UTI, present on admission UTI due to self catheterization is ruled out Other condition, please specify Unable to determine (Last Revision: December 2017) UTI due to self catheterization, present on admission MTDD
--- NOTE | 2019-10-28 14:12 | P.PN ---
Progress Note - Text Progress Note Date: 10/28/19 REASON FOR FOLLOWUP: Urinary tract infection. INTERVAL HISTORY: The patient remains to be afebrile, the patient is breathing comfortably. The patient denies having any chest pain or shortness of breath or cough. No nausea, no vomiting. No abdominal pain or any diarrhea. PHYSICAL EXAMINATION: Blood pressure 140/72 with a pulse of 72, temperature 98.9. He is 98% on room air. General description is elderly male lying in bed in no distress. RESPIRATORY SYSTEM: Unlabored breathing. Clear to auscultation anteriorly. HEART: S1, S2. Regular rate and rhythm. ABDOMEN: Soft, no tenderness. LABS: No new labs DIAGNOSTIC IMPRESSION AND PLAN: Patient admitted to the hospital with fever. This patient did have urinary symptoms positive likely urinary tract infection and did have a positive UA . Blood culture has been negative so far. The patient clinically responding to the Rocephin and will finish therapy with short course of oral Ceftin 500 mg twice a day 3 days.
--- NOTE | 2019-10-28 15:00 | P.DS ---
Providers Date of admission: 10/27/19 07:53 Expected date of discharge: 10/28/19 Attending physician: Myla Sargent MD Consults: 10/26/19 11:53 Consult Physician Routine Consulting Provider: Carolina Fitzpatrick Consult Reason/Comments: UTI Do you want consulting provider notified?: Yes Primary care physician: Vanessa Oneill [facility] Course: Final diagnosis -possibility of urinary tract infection or systemic inflammatory response syndrome patient, possibly due to self-catheterization, present on admission. -Generalized weakness and fatigue: Secondary to systemic inflammatory response -chronic urinary retention patient does straight catheterization -senile or vascular dementia -Hypothyroidism -History of prostate cancer with multiple UTIs in the past Discharge disposition Patient is being discharged in a stable condition with guarded prognosis to home and will follow-up with Dr. Oneill in the outpatient setting upon discharge. Patient will continue on her short course of oral antibiotics in the form of oral Ceftin twice daily for the next 3 days. Total time taken is 35 minutes. History of present illness 82-year-old with known history of multiple UTIs in the past last one being 04/04/2019 had Klebsiella oxytoca which is pansensitive patient does straight catheterization at home. Patient came to ER with complaints of for generalized weakness tiredness patient's family is unable to take care of him he shouldn't does have baseline confusion due to's dementia, although patient was having on and off fevers low-grade fever. Patient denied any flulike symptoms patient denied any suprapubic pain dysuria or increased urinary frequency cough chest x- ray did not show any pneumonia. Patient confusion is at his baseline UA is slightly abnormal with some minimal leukocyte esterase in the few white blood cell counts not really impressive for UTI although I cannot really explain his fever and patient is high risk for urinary tract infection because of which I'll continue with IV antibiotics and infectious disease will be consulted. 10/28/2019 Patient's mentation is back to baseline. Urine cultures finalized showing apparent skin and/or genital deborah and was treated with IV Rocephin during hospitalization. Infectious disease was following. Patient will continue on her short course of oral antibiotics in the form of Ceftin twice daily for the next 3 days and then may discontinue. Patient will need to follow-up with primary care provider Dr. Oneill in the outpatient setting. Currently no reports of chest pain, shortness of breath, or palpitations. Patient is afebrile. No reports of nausea or vomiting and patient is tolerating diet. Patient's condition is stable and is being discharged today. On exam vital signs are stable. Temp is 97.9F, pulse is 72, respirations are 18, blood pressure is 140/72, oxygen saturation is 95% on room air. Cardio S1, S2 are present. Respiratory system shows clear to auscultation. Abdomen is soft and nontender. Nervous system shows no focal deficits. Please refer to medication reconciliation sheet for a list of medications. Patient Condition at Discharge: Stable Plan - Discharge Summary Discharge Rx Participant: No New Discharge Prescriptions: New Cefuroxime Axetil [Ceftin] 500 mg PO BID 3 Days #6 tab Famotidine [Pepcid] 20 mg PO BID 30 Days #60 tab Continue Vit C/E/Zn/Coppr/Lutein/Zeaxan [Preservision Areds 2 Softgel] 1 cap PO BID L.acidoph,Paracasei, B.lactis [Probiotic] 1 cap PO DAILY Levothyroxine Sodium [Synthroid] 125 mcg PO DAILY ALPRAZolam [Xanax] 0.25 mg PO HS PRN PRN Reason: Anxiety AND SLEEP Hydrocortisone 20 mg PO QAM Discontinued Hydrocortisone 10 mg PO HS Discharge Medication List Vit C/E/Zn/Coppr/Lutein/Zeaxan [Preservision Areds 2 Softgel] 1 cap PO BID 03/18/18 [History] L.acidoph,Paracasei, B.lactis [Probiotic] 1 cap PO DAILY 04/17/18 [History] Levothyroxine Sodium [Synthroid] 125 mcg PO DAILY 02/25/19 [History] ALPRAZolam [Xanax] 0.25 mg PO HS PRN 10/26/19 [History] Hydrocortisone 20 mg PO QAM 10/26/19 [History] Cefuroxime Axetil [Ceftin] 500 mg PO BID 3 Days #6 tab 10/27/19 [Rx] Famotidine [Pepcid] 20 mg PO BID 30 Days #60 tab 10/27/19 [Rx] Follow up Appointment(s)/Referral(s): Vanessa Oneill MD [Primary Care Provider] - 11/04/19 9:30 am Patient Instructions/Handouts: Urinary Tract Infection in Men (DC) Activity/Diet/Wound Care/Special Instructions: activity limited until follow up follow up with primary care provider upon discharge continue antibiotics for 3 days and then may discontinue Discharge Disposition: HOME SELF-CARE
== END 2019-10-28 13:43 | disposition home or self-care (01) | DRG 699 ==
LOC: EC 20:09 → 4SSUR 23:00 → OBSVTOIN 10-27 07:53
PROVIDERS: ADMIT Internal Medicine; ATTEND Internal Medicine
PROC: 05HD33Z Insertion of Infusion Device into Right Cephalic Vein, Percutaneous Approach (ICD-10-PCS; principal; 2019-10-27 15:10)
DX: T83.518A Infection and inflammatory reaction due to other urinary catheter, initial encounter (principal); N39.0 Urinary tract infection, site not specified; E03.9 Hypothyroidism, unspecified; F01.50 Vascular dementia, unspecified severity, without behavioral disturbance, psychotic disturbance, mood disturbance, and anxiety; Z87.891 Personal history of nicotine dependence; Z79.890 Hormone replacement therapy; Z80.0 Family history of malignant neoplasm of digestive organs; Z82.3 Family history of stroke; Z85.46 Personal history of malignant neoplasm of prostate; Z87.440 Personal history of urinary (tract) infections
CPT/HCPCS: 36410; 36415; 71046; 76937; 80053; 81001; 83605; 85025; 87040; 87086; 87502; 99285

== ENCOUNTER 2019-11-17 08:37 | Inpatient (IN) | payer MEDICARE, BC ==
[2019-11-17] MEDS ORDERED: SODIUM CHLORIDE 0.9% 1,000 ML IV STA ×2 (08:55→09:00)
[2019-11-17] MEDS ORDERED: ONDANSETRON 4 MG/2 ML VIAL IVP STA (08:59)
[2019-11-17] MEDS ORDERED: FAMOTIDINE 20 MG/2 ML VIAL IV STA (08:59)
[2019-11-17] MEDS ORDERED: ACETAMINOPHEN SUPPOSITORY 650 MG SUPP RECTAL STA (09:00)
--- NOTE | 2019-11-17 09:04 | ED ---
General Adult HPI - General Chief complaint: Nausea/Vomiting/Diarrhea Stated complaint: Nausea/Vomiting/Fever Time Seen by Provider: 11/17/19 08:38 Source: patient, EMS, RN notes reviewed Mode of arrival: EMS Limitations: altered mental status - History of Present Illness Initial comments: Patient is a pleasant 84-year-old male presenting to the emergency Department with vomiting. Patient is a very poor historian and offers very little information. Unclear onset. Patient admits that he has been vomiting. No reported abdominal pain. There is concern for fever. - Related Data Home Medications Medication Instructions Recorded Confirmed Vit C/E/Zn/Coppr/Lutein/Zeaxan 1 cap PO BID 03/18/18 10/26/19 [Preservision Areds 2 Softgel] L.acidoph,Paracasei, B.lactis 1 cap PO DAILY 04/17/18 10/26/19 [Probiotic] Levothyroxine Sodium [Synthroid] 125 mcg PO DAILY 02/25/19 10/26/19 ALPRAZolam [Xanax] 0.25 mg PO HS PRN 10/26/19 10/26/19 Hydrocortisone 20 mg PO QAM 10/26/19 10/26/19 Previous Rx's Medication Instructions Recorded Cefuroxime Axetil [Ceftin] 500 mg PO BID 3 Days #6 tab 10/27/19 Famotidine [Pepcid] 20 mg PO BID 30 Days #60 tab 10/27/19 Allergies Allergy/AdvReac Type Severity Reaction Status Date / Time sulfamethoxazole Allergy Rash/Hives Verified 10/26/19 13:08 [From Bactrim] trimethoprim [From Bactrim] Allergy Rash/Hives Verified 10/26/19 13:08 Review of Systems ROS Statement: Those systems with pertinent positive or pertinent negative responses have been documented in the HPI. ROS Other: All systems not noted in ROS Statement are negative. Constitutional: Reports: fever Eyes: Denies: eye pain ENT: Denies: ear pain Respiratory: Denies: cough Cardiovascular: Denies: chest pain Endocrine: Denies: fatigue Gastrointestinal: Reports: nausea, vomiting. Denies: abdominal pain, diarrhea Genitourinary: Denies: dysuria Musculoskeletal: Denies: back pain Skin: Denies: rash Neurological: Denies: weakness Past Medical History Past Medical History: Cancer, Eye Disorder, Memory Impairment, Thyroid Disorder Additional Past Medical History / Comment(s): Prostate CA with radiation/urinary retention/self caths at 9pm and midnight and voids during daytime hours/ occasional incontinence of urine, frequent UTIs and has confusion with UTIs, stable pituitary mass, hyponatremia, chronic anemia, bilateral macular degeneration, hypothyroidism, pt's legs are cold all the time. History of Any Multi-Drug Resistant Organisms: Other MDRO Past Surgical History: Adenoidectomy, Tonsillectomy Additional Past Surgical History / Comment(s): EGD/colonoscopy. Past Anesthesia/Blood Transfusion Reactions: No Reported Reaction Past Psychological History: No Psychological Hx Reported Smoking Status: Never smoker Past Alcohol Use History: None Reported Past Drug Use History: None Reported - Past Family History Father Family Medical History: Cancer Additional Family Medical History / Comment(s): Colon CA, at 74. Mother Family Medical History: No Reported History, CVA/TIA Additional Family Medical History / Comment(s): Mother of a CVA at the age of 83yrs. General Exam Limitations: no limitations General appearance: alert Head exam: Present: normocephalic Eye exam: Present: normal appearance, PERRL ENT exam: Present: normal oropharynx Neck exam: Present: normal inspection Respiratory exam: Present: normal lung sounds bilaterally Cardiovascular Exam: Present: regular rate, normal rhythm GI/Abdominal exam: Present: soft, normal bowel sounds. Absent: distended, tenderness, guarding, rebound, rigid, pulsatile mass Extremities exam: Present: normal inspection Neurological exam: Present: alert Expanded Patient oriented to: Present: person. Absent: place, time Motor strength exam: RUE: 5, LUE: 5, RLE: 3 (Limited effort), LLE: 3 (Limited effort) Eye Response: (4) open spontaneously Motor Response: (6) obeys commands Verbal Response: (4) confused conversation Psychiatric exam: Present: flat affect Skin exam: Present: normal color Course Vital Signs 11/17/19 11/17/19 11/17/19 08:38 09:27 09:30 Temperature 102.5 F H 99 F Pulse Rate 87 78 Respiratory 18 18 Rate Blood Pressure 151/84 127/72 O2 Sat by Pulse 94 L 98 Oximetry 11/17/19 11/17/19 10:00 10:30 Temperature Pulse Rate 80 77 Respiratory 17 19 Rate Blood Pressure 121/78 127/73 O2 Sat by Pulse 97 98 Oximetry - Reevaluation(s) Reevaluation #1: 11/17/19 10:58 Case was discussed with Dr. Cortez, who will admit. EKG Findings - EKG Comments: EKG Findings:: Normal sinus rhythm 78. TN 184. QRS 134. QT 414. QTC 471. Left axis. Right bundle branch block. Nonspecific T waves. Medical Decision Making - Medical Decision Making Patient reevaluated and more alert and improved. Patient updated on results and plan. Dr. Gunn has been paged for admission, covering for Dr. Oneill. Patient does not meet sepsis criteria at this time. - Lab Data Result diagrams: 11/17/19 08:42 11/17/19 08:42 Lab Results 11/17/19 11/17/19 11/17/19 Range/Units 08:42 08:42 08:42 WBC 3.9 (3.8-10.6) k/uL RBC 4.17 L (4.30-5.90) m/uL Hgb 13.3 (13.0-17.5) gm/dL Hct 39.5 (39.0-53.0) % MCV 94.8 (80.0-100.0) fL MCH 31.8 (25.0-35.0) pg MCHC 33.5 (31.0-37.0) g/dL RDW 13.0 (11.5-15.5) % Plt Count 104 L (150-450) k/uL Neutrophils % 73 % Lymphocytes % 20 % Monocytes % 6 % Eosinophils % 1 % Basophils % 0 % Neutrophils # 2.8 (1.3-7.7) k/uL Lymphocytes # 0.8 L (1.0-4.8) k/uL Monocytes # 0.2 (0-1.0) k/uL Eosinophils # 0.0 (0-0.7) k/uL Basophils # 0.0 (0-0.2) k/uL PT 11.7 (9.0-12.0) sec INR 1.2 H (<1.2) APTT 25.6 (22.0-30.0) sec Sodium 133 L (137-145) mmol/L Potassium 3.7 (3.5-5.1) mmol/L Chloride 103 (98-107) mmol/L Carbon Dioxide 21 L (22-30) mmol/L Anion Gap 9 mmol/L BUN 14 (9-20) mg/dL Creatinine 0.89 (0.66-1.25) mg/dL Est GFR (CKD-EPI)AfAm 90 (>60 ml/min/1.73 sqM) Est GFR (CKD-EPI)NonAf 78 (>60 ml/min/1.73 sqM) Glucose 104 H (74-99) mg/dL POC Glucose (mg/dL) (75-99) mg/dL POC Glu Sterile Technician ID Plasma Lactic Acid Garland (0.7-2.0) mmol/L Calcium 8.0 L (8.4-10.2) mg/dL Total Bilirubin 0.4 (0.2-1.3) mg/dL AST 30 (17-59) U/L ALT 21 (4-49) U/L Alkaline Phosphatase 75 (38-126) U/L Troponin I (0.000-0.034) ng/mL Total Protein 6.5 (6.3-8.2) g/dL Albumin 3.5 (3.5-5.0) g/dL Urine Color Urine Appearance (Clear) Urine pH (5.0-8.0) Ur Specific Finley (1.001-1.035) Urine Protein (Negative) Urine Glucose (UA) (Negative) Urine Ketones (Negative) Urine Blood (Negative) Urine Nitrite (Negative) Urine Bilirubin (Negative) Urine Urobilinogen (<2.0) mg/dL Ur Leukocyte Esterase (Negative) Urine RBC (0-5) /hpf Urine WBC (0-5) /hpf Ur Squamous Epith Cells (0-4) /hpf Urine Bacteria (None) /hpf Urine Mucus (None) /hpf Urine Opiates Screen (NotDetected) Ur Oxycodone Screen (NotDetected) Urine Methadone Screen (NotDetected) Ur Propoxyphene Screen (NotDetected) Ur Barbiturates Screen (NotDetected) U Tricyclic Antidepress (NotDetected) Ur Phencyclidine Scrn (NotDetected) Ur Amphetamines Screen (NotDetected) U Methamphetamines Scrn (NotDetected) U Benzodiazepines Scrn (NotDetected) Urine Cocaine Screen (NotDetected) U Marijuana (THC) Screen (NotDetected) 11/17/19 11/17/19 11/17/19 Range/Units 08:42 08:42 09:10 WBC (3.8-10.6) k/uL RBC (4.30-5.90) m/uL Hgb (13.0-17.5) gm/dL Hct (39.0-53.0) % MCV (80.0-100.0) fL MCH (25.0-35.0) pg MCHC (31.0-37.0) g/dL RDW (11.5-15.5) % Plt Count (150-450) k/uL Neutrophils % % Lymphocytes % % Monocytes % % Eosinophils % % Basophils % % Neutrophils # (1.3-7.7) k/uL Lymphocytes # (1.0-4.8) k/uL Monocytes # (0-1.0) k/uL Eosinophils # (0-0.7) k/uL Basophils # (0-0.2) k/uL PT (9.0-12.0) sec INR (<1.2) APTT (22.0-30.0) sec Sodium (137-145) mmol/L Potassium (3.5-5.1) mmol/L Chloride (98-107) mmol/L Carbon Dioxide (22-30) mmol/L Anion Gap mmol/L BUN (9-20) mg/dL Creatinine (0.66-1.25) mg/dL Est GFR (CKD-EPI)AfAm (>60 ml/min/1.73 sqM) Est GFR (CKD-EPI)NonAf (>60 ml/min/1.73 sqM) Glucose (74-99) mg/dL POC Glucose (mg/dL) (75-99) mg/dL POC Glu Sterile Technician ID Plasma Lactic Acid Garland 1.3 (0.7-2.0) mmol/L Calcium (8.4-10.2) mg/dL Total Bilirubin (0.2-1.3) mg/dL AST (17-59) U/L ALT (4-49) U/L Alkaline Phosphatase (38-126) U/L Troponin I 0.134 H* (0.000-0.034) ng/mL Total Protein (6.3-8.2) g/dL Albumin (3.5-5.0) g/dL Urine Color Yellow Urine Appearance Cloudy (Clear) Urine pH 6.0 (5.0-8.0) Ur Specific Finley 1.012 (1.001-1.035) Urine Protein Negative (Negative) Urine Glucose (UA) Negative (Negative) Urine Ketones Negative (Negative) Urine Blood Moderate H (Negative) Urine Nitrite Negative (Negative) Urine Bilirubin Negative (Negative) Urine Urobilinogen <2.0 (<2.0) mg/dL Ur Leukocyte Esterase Large H (Negative) Urine RBC 53 H (0-5) /hpf Urine WBC 33 H (0-5) /hpf Ur Squamous Epith Cells 2 (0-4) /hpf Urine Bacteria Rare H (None) /hpf Urine Mucus Rare H (None) /hpf Urine Opiates Screen Not Detected (NotDetected) Ur Oxycodone Screen Not Detected (NotDetected) Urine Methadone Screen Not Detected (NotDetected) Ur Propoxyphene Screen Not Detected (NotDetected) Ur Barbiturates Screen Not Detected (NotDetected) U Tricyclic Antidepress Not Detected (NotDetected) Ur Phencyclidine Scrn Not Detected (NotDetected) Ur Amphetamines Screen Not Detected (NotDetected) U Methamphetamines Scrn Not Detected (NotDetected) U Benzodiazepines Scrn Not Detected (NotDetected) Urine Cocaine Screen Not Detected (NotDetected) U Marijuana (THC) Screen Not Detected (NotDetected) 11/17/19 Range/Units 09:13 WBC (3.8-10.6) k/uL RBC (4.30-5.90) m/uL Hgb (13.0-17.5) gm/dL Hct (39.0-53.0) % MCV (80.0-100.0) fL MCH (25.0-35.0) pg MCHC (31.0-37.0) g/dL RDW (11.5-15.5) % Plt Count (150-450) k/uL Neutrophils % % Lymphocytes % % Monocytes % % Eosinophils % % Basophils % % Neutrophils # (1.3-7.7) k/uL Lymphocytes # (1.0-4.8) k/uL Monocytes # (0-1.0) k/uL Eosinophils # (0-0.7) k/uL Basophils # (0-0.2) k/uL PT (9.0-12.0) sec INR (<1.2) APTT (22.0-30.0) sec Sodium (137-145) mmol/L Potassium (3.5-5.1) mmol/L Chloride (98-107) mmol/L Carbon Dioxide (22-30) mmol/L Anion Gap mmol/L BUN (9-20) mg/dL Creatinine (0.66-1.25) mg/dL Est GFR (CKD-EPI)AfAm (>60 ml/min/1.73 sqM) Est GFR (CKD-EPI)NonAf (>60 ml/min/1.73 sqM) Glucose (74-99) mg/dL POC Glucose (mg/dL) 99 (75-99) mg/dL POC Glu Sterile Technician ID Perla Jacome Plasma Lactic Acid Garland (0.7-2.0) mmol/L Calcium (8.4-10.2) mg/dL Total Bilirubin (0.2-1.3) mg/dL AST (17-59) U/L ALT (4-49) U/L Alkaline Phosphatase (38-126) U/L Troponin I (0.000-0.034) ng/mL Total Protein (6.3-8.2) g/dL Albumin (3.5-5.0) g/dL Urine Color Urine Appearance (Clear) Urine pH (5.0-8.0) Ur Specific Finley (1.001-1.035) Urine Protein (Negative) Urine Glucose (UA) (Negative) Urine Ketones (Negative) Urine Blood (Negative) Urine Nitrite (Negative) Urine Bilirubin (Negative) Urine Urobilinogen (<2.0) mg/dL Ur Leukocyte Esterase (Negative) Urine RBC (0-5) /hpf Urine WBC (0-5) /hpf Ur Squamous Epith Cells (0-4) /hpf Urine Bacteria (None) /hpf Urine Mucus (None) /hpf Urine Opiates Screen (NotDetected) Ur Oxycodone Screen (NotDetected) Urine Methadone Screen (NotDetected) Ur Propoxyphene Screen (NotDetected) Ur Barbiturates Screen (NotDetected) U Tricyclic Antidepress (NotDetected) Ur Phencyclidine Scrn (NotDetected) Ur Amphetamines Screen (NotDetected) U Methamphetamines Scrn (NotDetected) U Benzodiazepines Scrn (NotDetected) Urine Cocaine Screen (NotDetected) U Marijuana (THC) Screen (NotDetected) - Radiology Data Radiology results: report reviewed (Computed tomography scan of the brain shows degenerative and nonspecific changes. No acute hemorrhage. Stable sellar mass 1.6 cm.), image reviewed (Chest x-ray shows faint right peripheral midlung density that could be developing pneumonia. Abdominal x-ray shows some air- fluid loops of small bowel without distention.) Disposition Clinical Impression: Vomiting, Altered mental status, Urinary tract infection Disposition: ADMITTED IP TO THIS [facility] Condition: Serious Is patient prescribed a controlled substance at d/c from ED?: No Referrals: Vanessa Oneill MD [Primary Care Provider] - 1-2 days Decision Time: 10:47
[2019-11-17 09:15] LABS: Glucose,Whole Blood 99 mg/dL (75-99)
[2019-11-17] MEDS ORDERED: ACETAMINOPHEN TAB 500 MG TAB PO STA (09:23)
[2019-11-17 09:41] LABS: Albumin 3.5 g/dL (3.5-5.0); Potassium 3.7 mmol/L (3.5-5.1); Total Bilirubin 0.4 mg/dL (0.2-1.3); Total Protein 6.5 g/dL (6.3-8.2)
[2019-11-17 09:42] LABS: INR 1.2 (<1.2); Partial Thromboplastin Time 25.6 sec (22.0-30.0); Prothrombin Time 11.7 sec (9.0-12.0)
[2019-11-17 09:43] LABS: Basophils % (A) 0 %; Eosinophils % (A) 1 %; HCT 39.5 % (39.0-53.0); HGB 13.3 gm/dL (13.0-17.5); Lymphocytes # (A) 0.8 k/uL (1.0-4.8); Lymphocytes % (A) 20 %; MCH 31.8 pg (25.0-35.0); MCHC 33.5 g/dL (31.0-37.0); MCV 94.8 fL (80.0-100.0); Mean Platelet Volume 6.9; Monocytes # (A) 0.2 k/uL (0-1.0); Monocytes % (A) 6 %; Neutrophils # (A) 2.8 k/uL (1.3-7.7); Neutrophils % (A) 73 %; Platelet Count 104 k/uL (150-450); RBC 4.17 m/uL (4.30-5.90); WBC 3.9 k/uL (3.8-10.6)
[2019-11-17 09:50] LABS: Appearance,Urine Cloudy (Clear); Bacteria,Urine Rare /hpf; Bilirubin,Urine Negative (Negative); Blood,Urine Moderate (Negative); Color,Urine Yellow; Glucose,Urine (UA) Negative (Negative); Ketones,Urine Negative (Negative); Leukocyte Esterase,Urine Large (Negative); Mucus,Urine Rare /hpf; Nitrite,Urine Negative (Negative); Protein,Urine Negative (Negative); RBC,Urine 53 /hpf (0-5); Specific Gravity,Urine 1.012 (1.001-1.035); Squamous Epithelial Cell,Urine 2 /hpf (0-4); Urobilinogen,Urine <2.0 mg/dL (<2.0); WBC,Urine 33 /hpf (0-5)
[2019-11-17 09:51] LABS: Amphetamine Screen,Urine Not Detected (NotDetected); Barbiturate Screen,Urine Not Detected (NotDetected); Benzodiazepines Screen,Urine Not Detected (NotDetected); Cocaine Screen,Urine Not Detected (NotDetected); Methadone Screen, Urine Not Detected (NotDetected); Opiate Screen,Urine Not Detected (NotDetected); Oxycodone Screen, Urine Not Detected (NotDetected); Phencyclidine Screen,Urine Not Detected (NotDetected); Tricyclic Antidepressant,Urine Not Detected (NotDetected); Urn Cannabinoid Scrn Not Detected (NotDetected)
--- NOTE | 2019-11-17 10:16 | CT ---
EXAMINATION TYPE: CT brain wo con DATE OF EXAM: 11/17/2019 COMPARISON: 02/25/2019 HISTORY: Patient poor historian. Cough, fever and difficulty following directions. CT DLP: 2312.4 mGycm Automated exposure control for dose reduction was used. FINDINGS: There is extensive and diffuse low-attenuation the white matter which is nonspecific but most typical remote ischemia. Moderate to severe generalized degenerative change. No acute hemorrhage or mass effect. Calvarium intact. There is a sellar mass measuring 1.6 cm retrospectively stable from the prior exam IMPRESSION: 1. Degenerative and nonspecific white matter changes most typical of remote white matter ischemia. No acute hemorrhage or mass effect. 2. Stable sellar mass measuring 1.6 cm. Pituitary macroadenoma and the differential diagnosis.
--- NOTE | 2019-11-17 10:21 | XR ---
EXAMINATION TYPE: XR chest 2V DATE OF EXAM: 11/17/2019 COMPARISON: 10/25/2019 HISTORY: Altered mental status TECHNIQUE: Frontal and lateral views of the chest are obtained. FINDINGS: Faint nodular opacity in the peripheral right midlung. Outside pleural plaque over the rig ht medial lung base. Crowding of the pulmonary vasculature on the lateral view likely relate to low l mykel volumes. The cardiac silhouette size is enlarged as seen on the prior. The osseous structures a re intact. IMPRESSION: Faint nodular density in the peripheral right midlung may relate to early developing pne umonia, atelectasis or pulmonary nodule. This is not identified on the recent exam of 10/25/2019.
--- NOTE | 2019-11-17 10:33 | XR ---
Abdomen HISTORY: Vomiting Frontal view of the abdomen on 2 images And correlation to KUB 02/25/2019, CT 12/18/2017 There is some some asymmetric sclerosis involving the pubic bones on the left as compared to the righ t and is chronic. Sacroiliac joints also show chronic sclerotic change. Left hemiabdomen is not inclu ded on the exam due to patient positioning. There are air-filled loops of small and large bowel witho ut bowel distention. No evident pneumoperitoneum. IMPRESSION: Somewhat limited exam, correlate for ileus, enteritis, follow-up as indicated.
[2019-11-17] MEDS ORDERED: NALOXONE 0.4 MG/ML 1 ML VIAL IV PRN (10:49)
[2019-11-17] MEDS ORDERED: AZITHROMYCIN 500 MG in SODIUM CHLORIDE 0.9% 250 ML IVPB STA (10:49)
[2019-11-17] MEDS ORDERED: ONDANSETRON 4 MG/2 ML VIAL IVP PRN (10:49)
[2019-11-17 13:39] VITALS: BMI 26.4
[2019-11-17] MEDS: SODIUM CHLORIDE 0.9% 1,000 ML IV SCH ×2 (16:55→20:52)
[2019-11-17] MEDS: HYDROCORTISONE 10 MG TAB PO SCH ×2 (17:17)
--- NOTE | 2019-11-17 19:11 | P.CNNES ---
History of Present Illness Consult date: 11/17/19 Requesting physician: Bandar Robertson Reason for Consult: Altered mental status History of Present Illness: Patient is a 84-year-old male admitted to the hospital this morning because of vomiting. Patient is a poor historian offers very little information. Patient states that he came to the hospital because he was feeling sick all night, like will throw up with abdominal pain. He denies any shortness of breath or cough, had "a little" runny nose. No focal symptoms have been reported. Patient underwent Computed tomography scan of head showed degenerative and nonspecific white matter changes, most typical of remote white matter ischemia. No acute hemorrhage or mass effect. Stable sellar mass measuring 1.6 cm. Pituitary macroadenoma in the differential diagnosis. EKG showed normal sinus rhythm with left axis deviation. X-ray of abdomen limited exam correlate for ileus, enteritis. Chest x-ray showed faint to regular density in the peripheral right mid lung, may related to early developing pneumonia, atelectasis or pulmonary nodule. This is not identified on the recent exam of 10/25/2019. Troponin is elevated 0.134, went up to 0.541. UA showed large amount of leukocyte Estrace, negative nitrite moderate blood and 33 WBCs. Rare bacteria. Influenza screen negative. Urine cultures are pending. Review of Systems Denies headache. Please refer to HPI. Complains of generalized weakness. ROS unobtainable: due to mental status Past Medical History Past Medical History: Cancer, Eye Disorder, Memory Impairment, Thyroid Disorder Additional Past Medical History / Comment(s): Prostate CA with radiation/urinary retention/self caths 4 times a day-8am,2p,8pm,2am/ occasional incontinence of urine, frequent UTIs and has confusion with UTIs, stable benign pituitary mass, hyponatremia, chronic anemia, bilateral macular degeneration, hypothyroidism, pt's feet/legs are cold all the time. History of Any Multi-Drug Resistant Organisms: Other MDRO Past Surgical History: Adenoidectomy, Tonsillectomy Additional Past Surgical History / Comment(s): EGD/colonoscopy, bilateral cataract removals/lens implants, midline Past Anesthesia/Blood Transfusion Reactions: No Reported Reaction Smoking Status: Former smoker - Past Family History Father Family Medical History: Cancer Additional Family Medical History / Comment(s): Colon CA, at 74. Mother Family Medical History: No Reported History, CVA/TIA Additional Family Medical History / Comment(s): Mother of a CVA at the age of 83yrs. Medications and Allergies Home Medications Medication Instructions Recorded Confirmed Type Vit C/E/Zn/Coppr/Lutein/Zeaxan 1 cap PO BID 03/18/18 11/17/19 History [Preservision Areds 2 Softgel] L.acidoph,Paracasei, B.lactis 1 cap PO DAILY 04/17/18 11/17/19 History [Probiotic] Levothyroxine Sodium [Synthroid] 125 mcg PO DAILY 02/25/19 11/17/19 History ALPRAZolam [Xanax] 0.25 mg PO HS PRN 10/26/19 11/17/19 History Hydrocortisone 20 mg PO QAM 10/26/19 11/17/19 History Famotidine [Pepcid] 20 mg PO BID 30 Days #60 tab 10/27/19 11/17/19 Rx Hydrocortisone [Cortef] 10 mg PO DAILY@1400 11/17/19 11/17/19 History Allergies Allergy/AdvReac Type Severity Reaction Status Date / Time sulfamethoxazole Allergy Rash/Hives Verified 11/17/19 11:10 [From Bactrim] trimethoprim [From Bactrim] Allergy Rash/Hives Verified 11/17/19 11:10 Physical Examination - Vital Signs Vital Signs: Vital Signs Temp Pulse Pulse Resp BP BP Pulse Ox 11/17/19 12:34 98.5 F 63 20 92/68 96 11/17/19 11:54 102.6 F H 75 18 100/61 98 11/17/19 11:17 102.6 F H 11/17/19 11:09 75 18 100/61 98 11/17/19 10:30 77 19 127/73 98 11/17/19 10:00 80 17 121/78 97 11/17/19 09:30 78 18 127/72 98 11/17/19 09:27 99 F 11/17/19 08:38 102.5 F H 87 18 151/84 94 L Intake and Output 11/17/19 11/17/19 11/17/19 06:59 14:59 22:59 Intake Total 610 Balance 610 Intake: Intake, IV Titration 360 Amount Sodium Chloride 0.9% 1, 360 000 ml @ 130 mls/hr IV . [id number] [facility] Rx#:[id number] Oral 250 Other: Voiding Method Self-Catheterization # Voids 2 Weight 86.183 kg On examination patient is an elderly male, in no acute distress. He is alert and awake. Patient could not tell what month is it. He thinks the current year is 2800. He thinks he is in a [facility] although he knows that he is in [facility]. He thinks Mr. Green is the president. Patient knows his age. States he has 8 children, 4 boys and 4 girls. Speech and language functions are normal. Attention and concentration fund of knowledge is limited. On cranial nerve examination his pupils are round and reacting, visual frey are full, face is symmetric and tongue protrudes the midline. Palatal elevation normal, hearing is significantly decreased bilaterally. On muscle strength testing there is no drift and the strength is normal in arms and legs distally and proximally reflexes are diminished and plantars are downgoing sensory touch is equal. No ataxia for [id number] testing. Tone and bulk of muscles normal. Results - Laboratory Findings CBC and BMP: 11/17/19 08:42 11/17/19 08:42 Abnormal Lab Findings: Abnormal Labs 11/17/19 11/17/19 11/17/19 08:42 08:42 08:42 RBC 4.17 L Plt Count 104 L Lymphocytes # 0.8 L INR 1.2 H Sodium 133 L Carbon Dioxide 21 L Glucose 104 H Calcium 8.0 L Troponin I Urine Blood Ur Leukocyte Esterase Urine RBC Urine WBC Urine Bacteria Urine Mucus 11/17/19 11/17/19 11/17/19 08:42 09:10 14:42 RBC Plt Count Lymphocytes # INR Sodium Carbon Dioxide Glucose Calcium Troponin I 0.134 H* 0.541 H* Urine Blood Moderate H Ur Leukocyte Esterase Large H Urine RBC 53 H Urine WBC 33 H Urine Bacteria Rare H Urine Mucus Rare H Assessment and Plan Assessment: * Altered mental status, possible delirium due to reasons below. Probable underlying cognitive impairment/dementia. * Workup showed ?UTI/?infiltrate on chest x-ray/?enteritis on abdominal x-ray Plan: * Your medical management to evaluate and treat medical conditions as mentioned above. * No other neurological workup indicated. * If patient continues to have disorientation after treatment of underlying medical condition, then may follow up with a neurologist as outpatient to rule out underlying cognitive impairment. * We will check B12, folate, TSH. * Please call neurology if any further concerns. We will sign off.
[2019-11-17] MEDS ORDERED: ACETAMINOPHEN TAB 325 MG TAB PO PRN (20:41)
[2019-11-17] MEDS: FAMOTIDINE 20 MG TAB PO SCH (20:59)
[2019-11-17] MEDS: VIT A,C & E-LUTEIN-MINERALS 1 EACH TAB PO SCH (20:59)
--- NOTE | 2019-11-17 21:32 | P.HPIM ---
History of Present Illness H&P Date: 11/17/19 Chief Complaint: Vomiting and altered mental status Mr. Foreman is an 83-year-old male with a past medical history of thyroid disorder, prostate cancer status post radiation, chronic urinary retention does self cath, recurrent urinary tract infection with Enterobacter and Klebsiella, was brought to the hospital due to complaints of vomiting. Patient is also having altered mental status. Patient says that he has not been feeling very well and is throwing up with some abdominal pain. Patient was previously admitted to hospital due to recurrent urinary tract infections. Patient denied any complaints of shortness of breath. No cough or sputum production. Denied any nausea or symptoms of upper respiratory infection. Patient was febrile on admission with T-max 102.6. CT head showed degenerative and nonspecific white matter changes most typical of remote white matter ischemia. No acute hemorrhage or mass effect. Stable Sellar mass measuring 1.6 cm. Possible pituitary adenoma in the differential. Abdominal x-rays somewhat limited exam. Correlate for ileus and enteritis. Chest x-ray showed faint nodular density in the perihilar right mid lung may related to early developing pneumonia, atelectasis of pulmonary nodule. This is not identified in the recent exam on 10/23/19 WBC 3.9 Troponin 0.134 and 0.541 Sodium 133 Urinalysis showed large leukocyte esterase, elevated lesion artery disease Influenza a and B, RSV negative. Review of Systems Complete review of systems could not be obtained from the patient except as above. ROS unobtainable: due to endotracheal tube Past Medical History Past Medical History: Cancer, Eye Disorder, Memory Impairment, Thyroid Disorder Additional Past Medical History / Comment(s): Prostate CA with radiation/urinary retention/self caths 4 times a day-8am,2p,8pm,2am/ occasional incontinence of urine, frequent UTIs and has confusion with UTIs, stable benign pituitary mass, hyponatremia, chronic anemia, bilateral macular degeneration, hypothyroidism, pt's feet/legs are cold all the time. History of Any Multi-Drug Resistant Organisms: Other MDRO Past Surgical History: Adenoidectomy, Tonsillectomy Additional Past Surgical History / Comment(s): EGD/colonoscopy, bilateral cataract removals/lens implants, midline Past Anesthesia/Blood Transfusion Reactions: No Reported Reaction Smoking Status: Former smoker - Past Family History Father Family Medical History: Cancer Additional Family Medical History / Comment(s): Colon CA, at 74. Mother Family Medical History: No Reported History, CVA/TIA Additional Family Medical History / Comment(s): Mother of a CVA at the age of 83yrs. Medications and Allergies Home Medications Medication Instructions Recorded Confirmed Type Vit C/E/Zn/Coppr/Lutein/Zeaxan 1 cap PO BID 03/18/18 11/17/19 History [Preservision Areds 2 Softgel] L.acidoph,Paracasei, B.lactis 1 cap PO DAILY 04/17/18 11/17/19 History [Probiotic] Levothyroxine Sodium [Synthroid] 125 mcg PO DAILY 02/25/19 11/17/19 History ALPRAZolam [Xanax] 0.25 mg PO HS PRN 10/26/19 11/17/19 History Hydrocortisone 20 mg PO QAM 10/26/19 11/17/19 History Famotidine [Pepcid] 20 mg PO BID 30 Days #60 tab 10/27/19 11/17/19 Rx Hydrocortisone [Cortef] 10 mg PO DAILY@1400 11/17/19 11/17/19 History Allergies Allergy/AdvReac Type Severity Reaction Status Date / Time sulfamethoxazole Allergy Rash/Hives Verified 11/17/19 11:10 [From Bactrim] trimethoprim [From Bactrim] Allergy Rash/Hives Verified 11/17/19 11:10 Physical Exam Vitals: Vital Signs Temp Pulse Pulse Resp BP BP Pulse Ox 11/17/19 12:34 98.5 F 63 20 92/68 96 11/17/19 11:54 102.6 F H 75 18 100/61 98 11/17/19 11:17 102.6 F H 11/17/19 11:09 75 18 100/61 98 11/17/19 10:30 77 19 127/73 98 11/17/19 10:00 80 17 121/78 97 11/17/19 09:30 78 18 127/72 98 11/17/19 09:27 99 F 11/17/19 08:38 102.5 F H 87 18 151/84 94 L Intake and Output 11/17/19 11/17/19 11/17/19 06:59 14:59 22:59 Intake Total 610 Balance 610 Intake: Intake, IV Titration 360 Amount Sodium Chloride 0.9% 1, 360 000 ml @ 130 mls/hr IV . Q7H42M [facility] Rx#:[id number] Oral 250 Other: Voiding Method Self-Catheterization # Voids 2 Weight 86.183 kg PHYSICAL EXAMINATION: Patient is lying in the bed comfortably, no acute distress, awake alert and oriented 1.. HEENT: Normocephalic. Neck is supple. Pupils reactive. Nostrils clear. Oral cavity is moist. Ears reveal no drainage. Neck reveals no JVD, carotid bruits, or thyromegaly. CHEST EXAMINATION: Trachea is central. Symmetrical expansion. Bibasilar initiated entry. No wheezing. Otherwise Lung frey clear to auscultation and percussion. CARDIAC: Normal S1, S2 with no gallops. No murmurs ABDOMEN: Soft. Bowel sounds normal. No organomegaly. No abdominal bruits. Extremities: reveal no edema. No clubbing or cyanosis Neurologically awake, alert, oriented x1 with well-coordinated movements. No loss focal deficits noted Skin: No rash or skin lesions. Psychiatric: Coperative. Nonsuicidal Musculoskeletal: No joint swelling or deformity. Normal range of motion. Results CBC & Chem 7: 11/17/19 08:42 11/17/19 08:42 Labs: Abnormal Lab Results - Last 24 Hours (Table) 11/17/19 11/17/19 11/17/19 Range/Units 08:42 08:42 08:42 RBC 4.17 L (4.30-5.90) m/uL Plt Count 104 L (150-450) k/uL Lymphocytes # 0.8 L (1.0-4.8) k/uL INR 1.2 H (<1.2) Sodium 133 L (137-145) mmol/L Carbon Dioxide 21 L (22-30) mmol/L Glucose 104 H (74-99) mg/dL Calcium 8.0 L (8.4-10.2) mg/dL Troponin I (0.000-0.034) ng/mL Urine Blood (Negative) Ur Leukocyte Esterase (Negative) Urine RBC (0-5) /hpf Urine WBC (0-5) /hpf Urine Bacteria (None) /hpf Urine Mucus (None) /hpf 11/17/19 11/17/19 11/17/19 Range/Units 08:42 09:10 14:42 RBC (4.30-5.90) m/uL Plt Count (150-450) k/uL Lymphocytes # (1.0-4.8) k/uL INR (<1.2) Sodium (137-145) mmol/L Carbon Dioxide (22-30) mmol/L Glucose (74-99) mg/dL Calcium (8.4-10.2) mg/dL Troponin I 0.134 H* 0.541 H* (0.000-0.034) ng/mL Urine Blood Moderate H (Negative) Ur Leukocyte Esterase Large H (Negative) Urine RBC 53 H (0-5) /hpf Urine WBC 33 H (0-5) /hpf Urine Bacteria Rare H (None) /hpf Urine Mucus Rare H (None) /hpf Microbiology - Last 24 Hours (Table) 11/17/19 09:10 Urine Culture - Preliminary Urine,Catheterized Thrombosis Risk Factor Assmnt - DVT/VTE Prophylaxis DVT/VTE Prophylaxis: Pharmacologic Prophylaxis ordered - Choose All That Apply Any of the Below Risk Factors Present?: Yes Other Risk Factors: Yes Each Risk Factor Represents 2 Points: Malignancy Each Risk Factor Represents 3 Points: Age 75 years or older Other congenital or acquired thrombophilia - If yes, enter type in comment: No Thrombosis Risk Factor Assessment Total Risk Factor Score: 5 Thrombosis Risk Factor Assessment Level: High Risk Assessment and Plan Assessment: Nausea and vomiting secondary to enteritis and ileus. Acute Urinary tract infection. patient has history of multiple UTIs with Enterobacter and Klebsiella- straight catheterization at home Acute metabolic encephalopathy secondary to infection. improved now Right midlung early pneumonia. Possible aspiration Elevated troponin level possible demand ischemia/type2 DE Pitutary adenoma Hypoadrenalism Hypothyroidism Obesity with BMI of 30 History of prostate cancer status post radiation therapy and chronic urinary retention Constipation. DVT prophylaxis with heparin subcu Plan: Patient will be continued on antibiotics in the form of ceftriaxone and azithromycin. Continue with IV hydration and monitor blood pressure closely. Continue the home medications. Serial troponins. Patient was seen by neurology due to altered mental status and recommends no further workup at this time recommended. Cardiology and ID was consulted. Further recommendations based on the clinical course. Prognosis is guarded with multiple medical problems and comorbid conditions. Time with Patient: Greater than 30
[2019-11-17 23:04] LABS: T4, Free (Free Thyroxine) 1.38 ng/dL (0.78-2.19)
[2019-11-17] MEDS: metroNIDAZOLE 500 MG TAB PO SCH (23:36)
--- NOTE | 2019-11-17 23:59 | CONS ---
CONSULTATION DATE OF SERVICE: 11/17/2019 REASON FOR CONSULTATION: Fever and urinary tract infection. HISTORY OF PRESENT ILLNESS: The patient is an 84-year-old male with a past medical history significant for urine retention, history of recurrent UTI. The patient was brought into the ER at [facility] this morning for evaluation of vomiting and mental status changes. Apparently the patient's symptoms started this morning he presented to hospital also with a fever. The patient denies any headache. No URI symptoms. No chest pain or shortness of breath. Minimal cough. Denies having any abdominal pain and no diarrhea. On arrival in the ER the patient was noticed to have a fever of 102.5 degrees Fahrenheit. The patient did have a normal white count. Creatinine was normal. Troponin has been elevated. The patient did have positive urine with large leukocyte esterase, 33 WBCs. Urine drug screen was negative. Influenza and other PCR have been negative. The patient did have a chest x-ray which showed nodular density in the right mid lung; may be early developing pneumonia, atelectasis. The patient has been started on Rocephin and Zithromax and admitted to hospital. Infectious Disease was consulted for further recommendations regarding antibiotic. At the time of my evaluation the patient's fever had resolved and the patient was feeling better, with no further nausea or vomiting. REVIEW OF SYSTEMS: Positive points have been mentioned in HPI. Rest of the systems are negative. PAST MEDICAL HISTORY: Urine retention, history of prostate cancer history of recurrent UTI, macular degeneration, hypothyroidism. PAST SURGICAL HISTORY: Adenoidectomy, tonsillectomy. SOCIAL HISTORY: No history of smoking, drinking or drug use. FAMILY HISTORY: Father with history of colon cancer. Mother with history of CVA and TIA. ALLERGIES: BACTRIM. MEDICATIONS: The patient is currently on Tylenol, Zithromax, Rocephin 1 gram daily, Pepcid, hydrocortisone, Lactinex, Synthroid, Narcan, Zofran, Protonix. PHYSICAL EXAMINATION: Blood pressure 92/68 with a pulse of 63, temperature 98.5, T-max 102.6. He is 96% on 2 L nasal cannula. General description is an elderly male lying in bed in no distress. RESPIRATORY SYSTEM: Unlabored breathing with decreased breath sounds at the base. No wheeze. HEART: S1, S2. Regular rate and rhythm. ABDOMEN: Soft. No tenderness. No guarding or rigidity. EXTREMITIES: No edema of the feet. SKIN EXAMINATION: No rash or mass palpable. Neurologically, the patient is awake, alert, oriented x 2. Mood and affect normal. LABS: Hemoglobin 13.3, white count of 3.9, BUN of 14, creatinine 0.89. Electrolytes have been normal. Liver enzymes are normal. Troponin elevated. Urine is positive. DIAGNOSTIC IMPRESSION AND PLAN: Patient admitted to hospital with a fever, vomiting, likely secondary to symptomatic urinary tract infection in this patient who has a history of prostate cancer with urinary outflow obstruction requiring catheterization. Patient did have some nodular density seen on the chest x-ray with concern for possible aspiration pneumonitis. PLAN: 1. Rocephin 1 gram daily; however, add Flagyl 500 mg q.8 hours and discontinue Zithromax. 2. Try to obtain sputum for Gram stain and culture. 3. Will follow clinical condition and culture to further adjust medication if needed. Thank you for this consultation. Will follow this patient along with you. MMODL / IJN: [id number] /
[2019-11-18] MEDS: LEVOTHYROXINE 125 MCG TAB PO SCH (06:04)
[2019-11-18] MEDS: SODIUM CHLORIDE 0.9% 1,000 ML IV SCH ×3 (06:05→17:00)
[2019-11-18 06:06] LABS: Glucose,Whole Blood 94 mg/dL (75-99)
[2019-11-18 06:47] LABS: Calcium 7.5 mg/dL (8.4-10.2); Potassium 3.8 mmol/L (3.5-5.1)
[2019-11-18 06:55] LABS: Basophils % (A) 1 %; Eosinophils # (A) 0.1 k/uL (0-0.7); Eosinophils % (A) 3 %; HCT 34.6 % (39.0-53.0); HGB 11.3 gm/dL (13.0-17.5); Lymphocytes # (A) 0.8 k/uL (1.0-4.8); Lymphocytes % (A) 30 %; MCH 32.3 pg (25.0-35.0); MCHC 32.8 g/dL (31.0-37.0); MCV 98.7 fL (80.0-100.0); Mean Platelet Volume 7.3; Monocytes # (A) 0.2 k/uL (0-1.0); Monocytes % (A) 7 %; Neutrophils # (A) 1.4 k/uL (1.3-7.7); Neutrophils % (A) 56 %; RDW 13.1 % (11.5-15.5); WBC 2.5 k/uL (3.8-10.6)
[2019-11-18 07:21] LABS: Platelet Count 81 k/uL (150-450)
[2019-11-18] MEDS: PANTOPRAZOLE 40 MG/10 ML VIAL IV SCH (08:34)
[2019-11-18] MEDS: metroNIDAZOLE 500 MG TAB PO SCH ×3 (08:34→21:58)
[2019-11-18] MEDS: LACTOBACILLUS ACIDOPH & BULGAR 1 EACH PACKET PO SCH (08:34)
[2019-11-18] MEDS: VIT A,C & E-LUTEIN-MINERALS 1 EACH TAB PO SCH ×2 (08:34→21:58)
[2019-11-18] MEDS: FAMOTIDINE 20 MG TAB PO SCH ×2 (08:34→21:58)
[2019-11-18] MEDS: HYDROCORTISONE 10 MG TAB PO SCH ×2 (08:34→15:10)
--- NOTE | 2019-11-18 08:41 | P.CRDCN ---
History of Present Illness Consult date: 11/18/19 Requesting physician: Kristina Gunn Reason for Consult (text): Abnormal troponin Chief complaint: Mental status changes History of present illness: This is an 84-year-old gentleman with past medical history significant for hypothyroidism, prostate cancer with prior radiation, chronic urinary retention with recurrent UTI with Enterobacter and Klebsiella. Most of the history was obtained from the medical record as the patient is confused. Apparently the patient came to the hospital because he was having several episodes of vomiting and having some abdominal pain. He was also noted to have mental status changes. Cardiology was consulted because of abnormal troponin levels. Blood pressure on admission 150/80 with a heart rate in the 80s, 94% on 2 L of oxygen, his temperature on arrival 102.5. White blood cell count 3.9, her hemoglobin 13.3, platelet count 104. This morning the white blood cell count is 2.5 with a hemoglobin of 11.3 and platelet count of 81. Sodium 135, potassium 3.8, BUN 15, creatinine 0.9. Troponin 0.13, 0.54, 0.26. TSH less than 0.015, free T4 1 0.3, positive UTI, drug screen negative. Influenza A and B- and RSV negative. CAT scan of the brain was performed on admission here which revealed degenerative and nonspecific white matter changes, no acute hemorrhage or mass effect. Stable sellar mass measuring 1.6 cm. Pituitary macro adenoma in the differential. Chest x-ray revealed a faint nodular density in the peripheral right midlung which may relate to early developing pneumonia atelectasis or pulmonary nodule. Abdominal x-ray was limited, correlate for possible ileus, enteritis. EKG showed a normal sinus rhythm with a right bundle branch block pattern and left axis deviation, nonspecific ST-T wave changes. Past Medical History Past Medical History: Cancer, Eye Disorder, Memory Impairment, Thyroid Disorder Additional Past Medical History / Comment(s): Prostate CA with radiation/urinary retention/self caths 4 times a day-8am,2p,8pm,2am/ occasional incontinence of urine, frequent UTIs and has confusion with UTIs, stable benign pituitary mass, hyponatremia, chronic anemia, bilateral macular degeneration, hypothyroidism, pt's feet/legs are cold all the time. History of Any Multi-Drug Resistant Organisms: Other MDRO Past Surgical History: Adenoidectomy, Tonsillectomy Additional Past Surgical History / Comment(s): EGD/colonoscopy, bilateral cataract removals/lens implants, midline Past Anesthesia/Blood Transfusion Reactions: No Reported Reaction Smoking Status: Former smoker - Past Family History Father Family Medical History: Cancer Additional Family Medical History / Comment(s): Colon CA, at 74. Mother Family Medical History: No Reported History, CVA/TIA Additional Family Medical History / Comment(s): Mother of a CVA at the age of 83yrs. Medications and Allergies Home Medications Medication Instructions Recorded Confirmed Type Vit C/E/Zn/Coppr/Lutein/Zeaxan 1 cap PO BID 03/18/18 11/17/19 History [Preservision Areds 2 Softgel] L.acidoph,Paracasei, B.lactis 1 cap PO DAILY 04/17/18 11/17/19 History [Probiotic] Levothyroxine Sodium [Synthroid] 125 mcg PO DAILY 02/25/19 11/17/19 History ALPRAZolam [Xanax] 0.25 mg PO HS PRN 10/26/19 11/17/19 History Hydrocortisone 20 mg PO QAM 10/26/19 11/17/19 History Famotidine [Pepcid] 20 mg PO BID 30 Days #60 tab 10/27/19 11/17/19 Rx Hydrocortisone [Cortef] 10 mg PO DAILY@1400 11/17/19 11/17/19 History Allergies Allergy/AdvReac Type Severity Reaction Status Date / Time sulfamethoxazole Allergy Rash/Hives Verified 11/17/19 11:10 [From Bactrim] trimethoprim [From Bactrim] Allergy Rash/Hives Verified 11/17/19 11:10 Physical Exam Vitals: Vital Signs Temp Pulse Pulse Resp BP BP Pulse Ox 11/18/19 03:48 98.2 F 61 18 116/53 98 11/18/19 00:00 98.5 F 66 18 110/57 96 11/17/19 20:00 100.5 F H 70 18 130/65 97 11/17/19 12:34 98.5 F 63 20 92/68 96 11/17/19 11:54 102.6 F H 75 18 100/61 98 11/17/19 11:17 102.6 F H 11/17/19 11:09 75 18 100/61 98 11/17/19 10:30 77 19 127/73 98 11/17/19 10:00 80 17 121/78 97 11/17/19 09:30 78 18 127/72 98 11/17/19 09:27 99 F 11/17/19 08:38 102.5 F H 87 18 151/84 94 L Intake and Output 11/17/19 11/18/19 11/18/19 22:59 06:59 14:59 Intake Total 610 240 Balance 610 240 Intake: Intake, IV Titration 360 Amount Sodium Chloride 0.9% 1, 360 000 ml @ 130 mls/hr IV . Q7H42M [facility] Rx#:[id number] Oral 250 240 Other: Voiding Method Self-Catheterization # Voids 2 2 Weight 92.6 kg PHYSICAL EXAMINATION: GENERAL: 84-year-old gentleman in no acute distress HEENT: Head is atraumatic, normocephalic. Pupils equal, round. Sclera anicteric. Conjunctiva are clear. Mucous membranes of the mouth are moist. Neck is supple. There is no elevated jugular venous pressure. No carotid bruit is heard. HEART EXAMINATION: Artery S1 and S2 systolic murmur is heard CHEST EXAMINATION: Lungs are clear to auscultation and precussion. No chest wall tenderness is noted on palpation or with deep breathing. ABDOMEN: Soft, nontender. Bowel sounds are heard. No organomegaly noted. EXTREMITIES: 2+ peripheral pulses with no evidence of peripheral edema and no calf tenderness noted. NEUROLOGIC patient is awake, alert and oriented 1 . . Results 11/18/19 05:28 11/18/19 05:28 Cardiac Enzymes 11/17/19 11/17/19 11/17/19 Range/Units 08:42 08:42 14:42 AST 30 (17-59) U/L Troponin I 0.134 H* 0.541 H* (0.000-0.034) ng/mL 11/17/19 Range/Units 21:05 AST (17-59) U/L Troponin I 0.260 H* (0.000-0.034) ng/mL Coagulation 11/17/19 Range/Units 08:42 PT 11.7 (9.0-12.0) sec APTT 25.6 (22.0-30.0) sec CBC 11/17/19 11/18/19 Range/Units 08:42 05:28 WBC 3.9 2.5 L (3.8-10.6) k/uL RBC 4.17 L 3.50 L (4.30-5.90) m/uL Hgb 13.3 11.3 L (13.0-17.5) gm/dL Hct 39.5 34.6 L (39.0-53.0) % Plt Count 104 L 81 L (150-450) k/uL Comprehensive Metabolic Panel 11/17/19 11/18/19 Range/Units 08:42 05:28 Sodium 133 L 135 L (137-145) mmol/L Potassium 3.7 3.8 (3.5-5.1) mmol/L Chloride 103 105 (98-107) mmol/L Carbon Dioxide 21 L 24 (22-30) mmol/L BUN 14 15 (9-20) mg/dL Creatinine 0.89 0.99 (0.66-1.25) mg/dL Glucose 104 H 80 (74-99) mg/dL Calcium 8.0 L 7.5 L (8.4-10.2) mg/dL AST 30 (17-59) U/L ALT 21 (4-49) U/L Alkaline Phosphatase 75 (38-126) U/L Total Protein 6.5 (6.3-8.2) g/dL Albumin 3.5 (3.5-5.0) g/dL Current Medications Generic Name Dose Route Start Last Admin Trade Name Freq PRN Reason Stop Dose Admin Acetaminophen 650 mg 11/17/19 20:41 11/17/19 20:59 Tylenol Tab PO 650 mg Q6HR PRN Administration Fever and/ or Pain Famotidine 20 mg 11/17/19 21:00 11/17/19 20:59 Pepcid PO 20 mg BID DEBORAH Administration Hydrocortisone 10 mg 11/17/19 14:00 11/17/19 17:17 Cortef PO Not Given DAILY@1400 DEBORAH Hydrocortisone 20 mg 11/17/19 12:15 11/17/19 17:17 Cortef PO 20 mg QAM DEBORAH Administration Ceftriaxone Sodium 1 gm/ 50 mls @ 100 mls/hr 11/18/19 09:00 Sodium Chloride IVPB Q24HR DEBORAH Sodium Chloride 1,000 mls @ 130 mls/hr 11/17/19 11:00 11/18/19 06:05 Saline 0.9% IV 130 mls/hr .Q7H42M DEBORAH Administration Lactobacillus Acidoph/Bulgaricus 1 each 11/18/19 09:00 Lactinex PO DAILY DEBORAH Levothyroxine Sodium 125 mcg 11/18/19 06:30 11/18/19 06:04 Synthroid PO 125 mcg 0630 DEBORAH Administration Metronidazole 500 mg 11/17/19 22:00 11/17/19 23:36 Flagyl PO 500 mg TID DEBORAH Administration Multivitamins/Minerals 1 each 11/17/19 21:00 11/17/19 20:59 Ivite PO 1 each BID DEBORAH Administration Naloxone HCl 0.2 mg 11/17/19 10:49 Narcan IV Q2M PRN Opioid Reversal Ondansetron HCl 4 mg 11/17/19 10:49 Zofran IVP Q8HR PRN Nausea And Vomiting Pantoprazole Sodium 40 mg 11/18/19 09:00 Protonix IV DAILY DEBORAH Intake and Output 11/17/19 11/18/19 11/18/19 22:59 06:59 14:59 Intake Total 610 240 Balance 610 240 Intake: Intake, IV Titration 360 Amount Sodium Chloride 0.9% 1, 360 000 ml @ 130 mls/hr IV . Q7H42M [facility] Rx#:[id number] Oral 250 240 Other: Voiding Method Self-Catheterization # Voids 2 2 Weight 92.6 kg 11/18/19 05:28 11/18/19 05:28 EKG Interpretations (text) EKG shows normal sinus rhythm with a right bundle branch block pattern, left axis deviation, nonspecific ST-T wave changes Assessment and Plan Plan: Assessment and plan #1 nausea and vomiting, secondary to possible enteritis an ileus #2 abnormality in troponin, likely representing myocardial injury, secondary to possible sepsis. Temperature 102 on admission. Positive UTI. #3 chronic UTIs with anterior bacterin Klebsiella #4 possible pneumonia in the right midlung #5 hypothyroidism, TSH level 0.015. Patient is currently on Synthroid 125 g daily at home. #6 history of prostate cancer status post radiation Plan We will obtain an echocardiogram with Doppler study. Put the patient on a baby aspirin daily. Continue with hydration and antibiotics. Further recommendations to follow. DNP note has been reviewed, I agree with a documented findings and plan of care. Patient was seen and examined.
[2019-11-18] MEDS: ASPIRIN 81 MG PO SCH (08:44)
[2019-11-18] MEDS ORDERED: AZITHROMYCIN 500 MG in SODIUM CHLORIDE 0.9% 250 ML IVPB SCH (09:00)
--- NOTE | 2019-11-18 10:00 | ECHOF ---
Referral Reason:abn trop MEASUREMENTS -------- HEIGHT: 180.3 cm WEIGHT: 92.5 kg BP: 116/53 RVIDd: 3.0 cm (< 3.3) IVSd: 1.3 cm (0.6 - 1.1) LVIDd: 5.2 cm (3.9 - 5.3) LVPWd: 1.3 cm (0.6 - 1.1) IVSs: 1.8 cm LVIDs: 4.5 cm LVPWs: 1.8 cm LA Diam: 3.4 cm (2.7 - 3.8) LAESV Index (A-L): 23.59 ml/m Ao Diam: 3.3 cm (2.0 - 3.7) AV Cusp: 2.1 cm (1.5 - 2.6) MV EXCURSION: 14.447 mm (> 18.000) MV EF SLOPE: 60 mm/s (70 - 150) EPSS: 0.9 cm MV E Omar: 0.66 m/s MV DecT: 345 ms MV A Omar: 0.77 m/s MV E/A Ratio: 0.85 AR PHT: 1113 ms RAP: 15.00 mmHg RVSP: 38.58 mmHg TAPSE: 16.40 mm FINDINGS -------- Resting bradycardia (HR<60bpm). This was a technically adequate study. The left ventricular size is normal. There is mild concentric left ventricular hypertrophy. Overa ll left ventricular systolic function is low-normal with, an EF between 50 - 55 %. The right ventricle is normal in size. Normal LA size by volume 22+/-6 ml/m2. The right atrium is normal in size. Interatrial and interventricular septum intact. There is mild aortic valve sclerosis. Trace to mild aortic regurgitation. Mild mitral annular calcification present. There is trace to mild mitral regurgitation. Mild tricuspid regurgitation present. There is mild pulmonary hypertension. The right ventricular systolic pressure, as measured by Doppler, is 38.58mmHg. There is no pulmonic regurgitation present. The aortic root size is normal. Normal inferior vena cava with less than 50% inspiratory collapse consistent with estimated right atr ial pressure of 15 mmHg. The inferior vena cava is mildly dilated. There is no pericardial effusion. CONCLUSIONS -------- 1. Resting bradycardia (HR<60bpm). 2. This was a technically adequate study. 3. The left ventricular size is normal. 4. There is mild concentric left ventricular hypertrophy. 5. Overall left ventricular systolic function is low-normal with, an EF between 50 - 55 %. 6. The right ventricle is normal in size. 7. Normal LA size by volume 22+/-6 ml/m2. 8. The right atrium is normal in size. 9. Interatrial and interventricular septum intact. 10. There is mild aortic valve sclerosis. 11. Trace to mild aortic regurgitation. 12. Mild mitral annular calcification present. 13. There is trace to mild mitral regurgitation. 14. Mild tricuspid regurgitation present. 15. There is mild pulmonary hypertension. 16. The right ventricular systolic pressure, as measured by Doppler, is 38.58mmHg. 17. There is no pulmonic regurgitation present. 18. The aortic root size is normal. 19. Normal inferior vena cava with less than 50% inspiratory collapse consistent with estimated right atrial pressure of 15 mmHg. 20. The inferior vena cava is mildly dilated. 21. There is no pericardial effusion. PROJECT LEADER: Michelle Fisher RDCS
--- NOTE | 2019-11-18 14:33 | CDI ---
Documentation Clarification Form Date: 11/18/2019 02:31:26 PM From: Nakia Millan RN, CCDS Admit Date: 11/17/2019 10:49:00 AM Patient Name: China Foreman Visit Number: [id number] ATTENTION: The Clinical Documentation Specialists (CDI) and [facility] Coding Staff appreciate your assistance in clarifying documentation. Please respond to the clarification below the line at the bottom and electronically sign. The CDI & [facility] Coding staff will review the response and follow-up if needed. Please note: Queries are made part of the Legal Health Record. If you have any questions, please contact the author of this message via ITS. Dr. Atif Pardo declining Hgb and Hct have been noted and lacks specificity to accurately reflect your patients severity of condition and clarification is needed. History/Risk Factors: Prostate CA with radiation, chronic anemia Clinical indicators: Hemoglobin: 13.3/11.3 Hematocrit: 39.5/34.6 Treatment: monitoring labs 11/16 1L IVF 0.9%NS bolus followed by 130 cc/hr In order to capture the severity of condition, please clarify the clinical significance of the 2gm drop in Hgb and etiology if known: Acute blood loss anemia Acute on chronic blood loss anemia Chronic blood loss anemia Iron deficiency anemia Drug induced anemia Anemia due to malignancy Nutritional anemia Anemia of chronic kidney disease Unable to determine Other, please specify (Last Revision: June 2017) Anemia due to inflammation MTDD
--- NOTE | 2019-11-18 14:41 | CDI ---
Documentation Clarification Form Date: 11/18/2019 02:38:38 PM From: Nakia Millan RN, CCDS Admit Date: 11/17/2019 10:49:00 AM Patient Name: China Foreman Visit Number: [id number] ATTENTION: The Clinical Documentation Specialists (CDI) and [facility] Coding Staff appreciate your assistance in clarifying documentation. Please respond to the clarification below the line at the bottom and electronically sign. The CDI & [facility] Coding staff will review the response and follow-up if needed. Please note: Queries are made part of the Legal Health Record. If you have any questions, please contact the author of this message via ITS. Dr. Atif Eisenberg A diagnosis of UTI has been documented in the H&P and progress notes and requires further specificity. History/Risk Factors: "Prostate CA with radiation/urinary retention/self caths 4 times a day-8am, 2p, 8pm, 2am/ occasional incontinence of urine, frequent UTIs and has confusion with UTIs." Clinical Indicators: 11/16 Urinalysis: moderate blood, large leukocyte esterase, 53 RBC, 33 WBC, rare bacteria, rare mucus Urine culture: pending Lab results: WBC 3.9/2.5 Treatment: Rocephin 1 gm IVPB Q 24 hrs Zithromax 500 mg IVPB x 1 dose In your professional opinion, can you please clarify the etiology of the UTI, if known? UTI related to self catheratization UTI not related to self catheritization UTI related to other specified cause Other condition, please specify Unable to determine If an infective organism is present, please specify cause and effect relationship if applicable. (Last Revision: December 2017) UTI related to self catheratization MTDD
[2019-11-18] MEDS ORDERED: ATORVASTATIN 40 MG TAB PO SCH (21:00)
--- NOTE | 2019-11-18 22:53 | PN ---
PROGRESS NOTE DATE OF SERVICE: 11/18/2019 REASON FOR FOLLOWUP: UTI and a question of possible aspiration pneumonitis. INTERVAL HISTORY: The patient is currently afebrile. The patient has been feeling much better, breathing comfortably. Patient denies having any chest pain. Occasional cough. No abdominal pain or diarrhea. PHYSICAL EXAMINATION: Blood pressure is 164/80 with a pulse of 70, temperature 97.8. He is 96% on room air. General description is an elderly male lying in bed in no distress. RESPIRATORY SYSTEM: Unlabored breathing with decreased breath sounds at the base. No wheeze. HEART: S1, S2. Regular rate and rhythm. ABDOMEN: Soft. No tenderness. EXTREMITIES: No edema of feet. LABS: Blood and sputum cultures have been negative so far. DIAGNOSTIC IMPRESSION AND PLAN: Patient admitted to hospital with vomiting, also noticed to have a fever with a component of urinary tract infection, as he did have a positive UA and does catheterize himself. Question of aspiration pneumonitis. The patient is clinically responding to the Rocephin and Flagyl. We will try to obtain a repeat chest x-ray tomorrow. If the patient continues to improve, to finish therapy with oral antibiotics. Questions and concerns were answered. MMODL / IJN: [id number] /
--- NOTE | 2019-11-19 01:37 | P.PN ---
Subjective Progress Note Date: 11/18/19 Principal diagnosis: Acute urinary tract infection and sepsis Mr. Foreman is an 83-year-old male with a past medical history of thyroid disorder, prostate cancer status post radiation, chronic urinary retention does self cath, recurrent urinary tract infection with Enterobacter and Klebsiella, was brought to the hospital due to complaints of vomiting. Patient is also having altered mental status. Patient says that he has not been feeling very well and is throwing up with some abdominal pain. Patient was previously admitted to hospital due to recurrent urinary tract infections. Patient denied any complaints of shortness of breath. No cough or sputum production. Denied any nausea or symptoms of upper respiratory infection. Patient was febrile on admission with T-max 102.6. CT head showed degenerative and nonspecific white matter changes most typical of remote white matter ischemia. No acute hemorrhage or mass effect. Stable Sellar mass measuring 1.6 cm. Possible pituitary adenoma in the differential. Abdominal x-rays somewhat limited exam. Correlate for ileus and enteritis. Chest x-ray showed faint nodular density in the perihilar right mid lung may related to early developing pneumonia, atelectasis of pulmonary nodule. This is not identified in the recent exam on 10/23/19 WBC 3.9 Troponin 0.134 and 0.541 Sodium 133 Urinalysis showed large leukocyte esterase, elevated lesion artery disease Influenza a and B, RSV negative. 11/18/2019 Patient is more awake and oriented today. No complaints of chest pain or shortness of breath. No fever no chills. Denied any cough or sputum production. Currently being continued on Antibiotics in the Form of Ceftriaxone and Flagyl. Follow-up urine culture report and blood culture report. Patient was seen by cardiology. 2-D echocardiogram was ordered and patient was started on aspirin. Elevated troponin level likely secondary to sepsis. No complaints of nausea or vomiting. No abdominal pain no diarrhea. Current medications reviewed. Objective - Vital Signs Vital signs: Vital Signs Temp 97.8 F 11/18/19 19:46 Pulse 70 11/18/19 19:46 Resp 18 11/18/19 20:00 BP 164/80 11/18/19 19:46 Pulse Ox 96 11/18/19 19:46 Intake & Output 11/18/19 11/18/19 11/19/19 06:59 18:59 06:59 Intake Total 1310 Balance 1310 Weight 92.6 kg Intake: Intake, IV Titration 950 Amount Sodium Chloride 0.9% 1, 900 000 ml @ 130 mls/hr IV . Q7H42M [facility] Rx#:[id number] cefTRIAXone 1 gm In 50 Sodium Chloride 0.9% 50 ml @ 100 mls/hr IVPB Q24HR [facility] Rx#:[id number] Oral 360 Other: Voiding Method Self-Catheterization Self-Catheterization Toilet # Voids 2 3 2 - Exam PHYSICAL EXAMINATION: Patient is lying in the bed comfortably, no acute distress, awake alert and oriented.. HEENT: Normocephalic. Neck is supple. Pupils reactive. Nostrils clear. Oral cavity is moist. Ears reveal no drainage. Neck reveals no JVD, carotid bruits, or thyromegaly. CHEST EXAMINATION: Trachea is central. Symmetrical expansion. Lung frey clear to auscultation and percussion. CARDIAC: Normal S1, S2 with no gallops. No murmurs ABDOMEN: Soft. Bowel sounds normal. No organomegaly. No abdominal bruits. Extremities: reveal no edema. No clubbing or cyanosis Neurologically awake, alert, oriented x2with well-coordinated movements. No focal deficits noted Skin: No rash or skin lesions. Psychiatric: Coperative. Nonsuicidal Musculoskeletal: No joint swelling or deformity. Normal range of motion. - Labs CBC & Chem 7: 11/18/19 05:28 11/18/19 05:28 Labs: Abnormal Lab Results - Last 24 Hours (Table) 11/17/19 11/17/19 11/18/19 Range/Units 21:05 21:05 05:28 WBC 2.5 L (3.8-10.6) k/uL RBC 3.50 L (4.30-5.90) m/uL Hgb 11.3 L (13.0-17.5) gm/dL Hct 34.6 L (39.0-53.0) % Plt Count 81 L (150-450) k/uL Lymphocytes # 0.8 L (1.0-4.8) k/uL Sodium (137-145) mmol/L Calcium (8.4-10.2) mg/dL Troponin I 0.260 H* (0.000-0.034) ng/mL TSH <0.015 L (0.465-4.680) mIU/L 11/18/19 Range/Units 05:28 WBC (3.8-10.6) k/uL RBC (4.30-5.90) m/uL Hgb (13.0-17.5) gm/dL Hct (39.0-53.0) % Plt Count (150-450) k/uL Lymphocytes # (1.0-4.8) k/uL Sodium 135 L (137-145) mmol/L Calcium 7.5 L (8.4-10.2) mg/dL Troponin I (0.000-0.034) ng/mL TSH (0.465-4.680) mIU/L Microbiology - Last 24 Hours (Table) 11/17/19 09:10 Urine Culture - Final Urine,Catheterized 11/17/19 09:24 Blood Culture - Preliminary Blood No Growth after 24 hours Assessment and Plan Assessment: Nausea and vomiting secondary to enteritis and ileus. Improved now. Acute Urinary tract infection. patient has history of multiple UTIs with Enterobacter and Klebsiella- straight catheterization at home Acute metabolic encephalopathy secondary to infection. improved now Right midlung early pneumonia. Possible aspiration Elevated troponin level possible demand ischemia/type2 MS due to sepsis. Pitutary adenoma Hypoadrenalism Hypothyroidism Obesity with BMI of 30 History of prostate cancer status post radiation therapy and chronic urinary retention Constipation. DVT prophylaxis with heparin subcu Plan: Patient will be continued on antibiotics in the form of ceftriaxone and Flagyl. Continue with IV hydration and monitor blood pressure closely. Continue the home medications. Serial troponins. Patient was seen by neurology due to altered mental status and recommends no further workup at this time recommended. Cardiology and ID is following. Further recommendations based on the clinical course. Prognosis is guarded with multiple medical problems and comorbid conditions. Time with Patient: Greater than 30
[2019-11-19] MEDS: SODIUM CHLORIDE 0.9% 1,000 ML IV SCH ×2 (06:57→07:28)
[2019-11-19] MEDS: HYDROCORTISONE 10 MG TAB PO SCH ×2 (07:19→14:21)
[2019-11-19] MEDS: metroNIDAZOLE 500 MG TAB PO SCH (07:19)
[2019-11-19] MEDS: LEVOTHYROXINE 125 MCG TAB PO SCH (07:19)
[2019-11-19] MEDS: VIT A,C & E-LUTEIN-MINERALS 1 EACH TAB PO SCH (07:19)
[2019-11-19] MEDS: LACTOBACILLUS ACIDOPH & BULGAR 1 EACH PACKET PO SCH (07:20)
[2019-11-19] MEDS: FAMOTIDINE 20 MG TAB PO SCH (07:20)
[2019-11-19] MEDS: ASPIRIN 81 MG PO SCH (07:20)
[2019-11-19 07:23] LABS: Basophils % (A) 0 %; Eosinophils # (A) 0.1 k/uL (0-0.7); Eosinophils % (A) 2 %; HCT 32.4 % (39.0-53.0); HGB 10.9 gm/dL (13.0-17.5); Lymphocytes # (A) 1.1 k/uL (1.0-4.8); Lymphocytes % (A) 31 %; MCH 32.4 pg (25.0-35.0); MCHC 33.6 g/dL (31.0-37.0); MCV 96.4 fL (80.0-100.0); Mean Platelet Volume 7.5; Monocytes # (A) 0.2 k/uL (0-1.0); Monocytes % (A) 7 %; Neutrophils % (A) 56 %; RBC 3.37 m/uL (4.30-5.90); RDW 12.9 % (11.5-15.5); WBC 3.5 k/uL (3.8-10.6)
[2019-11-19] MEDS: PANTOPRAZOLE 40 MG/10 ML VIAL IV SCH (07:24)
[2019-11-19 07:29] LABS: Platelet Count 62 k/uL (150-450)
[2019-11-19 07:44] LABS: African American GFR (CKD) >90 (>60 ml/min/1.73 sqM); Anion Gap 7 mmol/L; Blood Urea Nitrogen 12 mg/dL (9-20); Carbon Dioxide 20 mmol/L (22-30); Chloride 108 mmol/L (98-107); Glucose 80 mg/dL (74-99); Non-African American GFR(CKD) 81 (>60 ml/min/1.73 sqM); Potassium 3.6 mmol/L (3.5-5.1); Sodium 135 mmol/L (137-145)
--- NOTE | 2019-11-19 08:19 | XR ---
EXAMINATION TYPE: XR chest 2V DATE OF EXAM: 11/19/2019 COMPARISON: Prior chest x-ray 11/17/2019 HISTORY: Pneumonia TECHNIQUE: Frontal and lateral views of the chest are obtained. FINDINGS: There is no focal air space opacity, pleural effusion, or pneumothorax seen. The cardiac silhouette size is within normal limits. Patient is rotated. The osseous structures are intact. IMPRESSION: No acute cardiopulmonary process.
[2019-11-19 08:27] VITALS: RESP 18
--- NOTE | 2019-11-19 11:43 | P.PN ---
Subjective This is a pleasant 84-year-old male past medical history significant for prostate cancer status post radiation with history of chronic urinary retention requiring self catheterization, frequent UTIs and hypothyroidism. He was brought to the hospital secondary to altered mental status, vomiting, abdominal pain and found to have urinary tract infection along with ileus. He has seen and examined sitting up on the edge of the bed getting ready to walk to the restroom. He denies symptoms of chest pain, shortness of breath, dizziness or palpitations. Blood pressure this morning was 169/85 heart rate 77 afebrile maintaining oxygen saturation on room air. Laboratory data reviewed, WBC 3.5, hemoglobin 10.9, platelets 62, sodium 135, potassium 3.6, creatinine 0.8. Currently maintained on aspirin 81 mg daily and atorvastatin 40 mg at bedtime. Echocardiogram obtained reveals preserved LV systolic function with ejection fraction 50-55%, mild aortic valve sclerosis, mild tricuspid regurgitation and mild pulmonary hypertension with RVSP of 38 mmHg. GENERAL: Well-appearing, well-nourished and in no acute distress. NECK: Supple without JVD or thyromegaly. LUNGS: Respiration equal and unlabored. Trace scattered rhonchi. No wheezes or rales. HEART: Regular rate and rhythm without murmurs, rubs or gallops. S1 and S2 heard. EXTREMITIES: Normal range of motion, no edema. No clubbing or cyanosis. Peripheral pulses intact. ASSESSMENT Altered mental status Elevated troponin secondary to sepsis Urinary tract infection History of prostate cancer status post radiation with chronic urinary retention PLAN Stable from a cardiac perspective. Troponin elevation is not indicative of an acute coronary event. We will continue to follow as needed, please call with questions or concerns. Follow-up the office with Dr. Garcia in 2 weeks. Nurse Practitioner note has been reviewed, I agree with a documented findings and plan of care. Patient was seen and examined. Objective - Vital Signs Vital signs: Vital Signs Temp 99.4 F 11/19/19 07:00 Pulse 77 11/19/19 07:00 Resp 18 11/19/19 08:00 BP 169/85 11/19/19 07:00 Pulse Ox 96 11/19/19 07:00 Intake & Output 11/18/19 11/19/19 11/19/19 18:59 06:59 18:59 Intake Total 1310 296 Balance 1310 296 Intake: Intake, IV Titration 950 Amount Sodium Chloride 0.9% 1, 900 000 ml @ 130 mls/hr IV . Q7H42M [facility] Rx#:[id number] cefTRIAXone 1 gm In 50 Sodium Chloride 0.9% 50 ml @ 100 mls/hr IVPB Q24HR [facility] Rx#:[id number] Oral 360 296 Other: Voiding Method Self-Catheterization Toilet Toilet Incontinent # Voids 3 2 - Labs CBC & Chem 7: 11/19/19 06:28 11/19/19 06:28 Labs: Abnormal Lab Results - Last 24 Hours (Table) 11/19/19 11/19/19 Range/Units 06:28 06:28 WBC 3.5 L (3.8-10.6) k/uL RBC 3.37 L (4.30-5.90) m/uL Hgb 10.9 L (13.0-17.5) gm/dL Hct 32.4 L (39.0-53.0) % Plt Count 62 L (150-450) k/uL Sodium 135 L (137-145) mmol/L Chloride 108 H (98-107) mmol/L Carbon Dioxide 20 L (22-30) mmol/L Calcium 8.0 L (8.4-10.2) mg/dL Microbiology - Last 24 Hours (Table) 11/17/19 09:24 Blood Culture - Preliminary Blood No Growth after 48 hours 11/17/19 09:10 Urine Culture - Final Urine,Catheterized
[2019-11-19 13:56] VITALS: BP 119/61; PULSE 65; TEMP 97.9
--- NOTE | 2019-11-19 16:29 | PN ---
PROGRESS NOTE DATE OF SERVICE: 11/19/2019 REASON FOR FOLLOWUP: Urinary tract infection. INTERVAL HISTORY: The patient is currently afebrile. The patient has been breathing comfortably. Denies having any chest pain or cough. No nausea. No vomiting. No abdominal pain or any diarrhea. PHYSICAL EXAMINATION: Blood pressure is 119/61 with a pulse of 55, temperature 97.9. He is 95% on room air. General description is an elderly male lying in bed in no distress. RESPIRATORY SYSTEM: Unlabored breathing. Clear to auscultation anteriorly. HEART: S1, S2. Regular rate and rhythm. ABDOMEN: Soft. No tenderness. LABS/IMAGING: Hemoglobin 10.1, white count 3.5, creatinine 0.80. Blood and urine cultures are negative. Chest x-ray was negative for any pneumonia. DIAGNOSTIC IMPRESSION AND PLAN: Patient admitted to hospital with a fever, concern likely for a urinary tract infection in this patient who did have self-catheterization and did have a positive UA. Patient with clinical improvement on Rocephin. Plan to finish therapy with oral Ceftin 250 mg twice a day for 5 days. Prescription has been sent down to the pharmacy. MMODL / SHRAVANN: [id number] /
--- NOTE | 2019-11-24 08:39 | CDI ---
Documentation Clarification Form Date: 11/24/19 From: Christi Huizar CCS Phone: If you have a question about this query, please contact Cecelia Mckeon, [employer] at [phone] between 8am and 5pm. Admit Date: 11/17/19 Discharge Date: 11/19/19 Patient Name: China Foreman Visit Number: [id number] ATTENTION: The Clinical Documentation Specialists (CDI) and [facility] Coding Staff appreciate your assistance in clarifying documentation. Please respond to the clarification below the line at the bottom and electronically sign. The CDI & [facility] Coding staff will review the response and follow-up if needed. Please note: Queries are made part of the Legal Health Record. If you have any questions, please contact the author of this message via ITS. Dear Dr. Eisenberg, Sepsis is documented in the PNs, Consult. History/Risk Factors: PNA, UTI, Type II PR, Ileus WBC: 3.9, 2.5, 3.5 Lactic acid: 1.3 Blood cultures: No growth after 144 hours Vitals signs on admission: Temp 102.5, BP 127/72, RR 18, NH 78, O2 Sat 98 Treatment: Rocephin 1 gm IVPB Q24HR, Zithromax 500 mg IVPB ID Consult: Amari IV Bolus: Sodium Chloride 0.9% 1,000 ml In your professional opinion, please clarify if these findings signify one of the following conditions, whether the condition is POA, and cause, if known: Condition Sepsis ruled out Sepsis Other, please specify Unable to determine Present on Admission Yes No SIRS Criteria (2 or more of the following may indicate SIRS): -Temperature < 96.8F (36C) or > 101.0F (38.3C) -Heart Rate > 90 bpm -Respiratory Rate > 20 breaths/min or PaCO2 < 32 mmHg -White Blood Cell Count > 12,000 or < 4,000 cells/mm3 or > 10% bands -Lactate >2.0 mmol/L (>4.0 is equivalent to septic shock) Sepsis JOHN MONTE
== END 2019-11-19 16:20 | disposition home or self-care (01) | DRG 698 ==
LOC: EC 08:37 → 3SCARD 10:49 → 4SSUR 11-18 17:08
PROVIDERS: ADMIT Hospitalist; ATTEND Hospitalist
DX: T83.518A Infection and inflammatory reaction due to other urinary catheter, initial encounter (principal); A41.50 Gram-negative sepsis, unspecified; G93.41 Metabolic encephalopathy; I21.A1 Myocardial infarction type 2; J69.0 Pneumonitis due to inhalation of food and vomit; I67.82 Cerebral ischemia; K56.7 Ileus, unspecified; E27.40 Unspecified adrenocortical insufficiency; E87.1 Hypo-osmolality and hyponatremia; N39.0 Urinary tract infection, site not specified; J98.11 Atelectasis; I27.20 Pulmonary hypertension, unspecified; I08.2 Rheumatic disorders of both aortic and tricuspid valves; D63.8 Anemia in other chronic diseases classified elsewhere; F03.90 Unspecified dementia, unspecified severity, without behavioral disturbance, psychotic disturbance, mood disturbance, and anxiety; N13.9 Obstructive and reflux uropathy, unspecified; H35.30 Unspecified macular degeneration; R40.2142 Coma scale, eyes open, spontaneous, at arrival to emergency department; R40.2362 Coma scale, best motor response, obeys commands, at arrival to emergency department; R40.2242 Coma scale, best verbal response, confused conversation, at arrival to emergency department; I45.10 Unspecified right bundle-branch block; E66.9 Obesity, unspecified; K52.9 Noninfective gastroenteritis and colitis, unspecified; D35.2 Benign neoplasm of pituitary gland; E03.9 Hypothyroidism, unspecified; R33.9 Retention of urine, unspecified; Z68.26 Body mass index [BMI] 26.0-26.9, adult; Z71.3 Dietary counseling and surveillance; Z79.890 Hormone replacement therapy; Z79.899 Other long term (current) drug therapy; Z87.440 Personal history of urinary (tract) infections; Z85.46 Personal history of malignant neoplasm of prostate; Z92.3 Personal history of irradiation; Z98.890 Other specified postprocedural states; Z98.42 Cataract extraction status, left eye; Z98.41 Cataract extraction status, right eye; Z96.1 Presence of intraocular lens; Z87.891 Personal history of nicotine dependence; Z88.2 Allergy status to sulfonamides; Z80.0 Family history of malignant neoplasm of digestive organs; Z82.3 Family history of stroke
CPT/HCPCS: 36415; 70450; 71046; 74018; 80048; 80053; 80306; 81001; 82607; 82746; 83605; 84439; 84443; 84484; 85025; 85610; 85730; 87040; 87086; 87502; 87634; 93005; 93306; 96361; 96365; 96375; 99285

== ENCOUNTER 2020-01-19 10:12 | Inpatient (IN) | payer MEDICARE, BC ==
[2020-01-19] MEDS ORDERED: SODIUM CHLORIDE 0.9% 500 ML 500 ML IV STA (10:49)
--- NOTE | 2020-01-19 10:53 | ED ---
General Adult HPI - General Chief complaint: Weakness Stated complaint: weakness Time Seen by Provider: 01/19/20 10:15 Source: patient, RN notes reviewed, old records reviewed Mode of arrival: EMS Limitations: no limitations - History of Present Illness Initial comments: This is an 84-year-old male who presents emergency Department states he is become weaker since last evening. Patient states he got up this morning he could barely walk. Patient denies any fever chills or cough. So EMS stated the patient had a fever. Patient has been on Tylenol. Patient denies any dysuria hematuria urinary frequency. Patient denies any chest pain or shortness of breath. Patient denies any abdominal pain patient denies nausea vomiting or diarrhea. Patient denies headache patient denies lightheadedness or dizziness. Patient denies any rashes or areas of erythema. - Related Data Home Medications Medication Instructions Recorded Confirmed Vit C/E/Zn/Coppr/Lutein/Zeaxan 1 cap PO BID 03/18/18 11/17/19 [Preservision Areds 2 Softgel] L.acidoph,Paracasei, B.lactis 1 cap PO DAILY 04/17/18 11/17/19 [Probiotic] Levothyroxine Sodium [Synthroid] 125 mcg PO DAILY 02/25/19 11/17/19 ALPRAZolam [Xanax] 0.25 mg PO HS PRN 10/26/19 11/17/19 Hydrocortisone 20 mg PO QAM 10/26/19 11/17/19 Hydrocortisone [Cortef] 10 mg PO DAILY@1400 11/17/19 11/17/19 Previous Rx's Medication Instructions Recorded Famotidine [Pepcid] 20 mg PO BID 30 Days #60 tab 10/27/19 Aspirin 81 mg PO DAILY #30 chew 11/19/19 Cefuroxime [Ceftin] 250 mg PO BID #10 tab 11/19/19 Allergies Allergy/AdvReac Type Severity Reaction Status Date / Time sulfamethoxazole Allergy Rash/Hives Verified 11/17/19 11:10 [From Bactrim] trimethoprim [From Bactrim] Allergy Rash/Hives Verified 11/17/19 11:10 Review of Systems ROS Statement: Those systems with pertinent positive or pertinent negative responses have been documented in the HPI. ROS Other: All systems not noted in ROS Statement are negative. Past Medical History Past Medical History: Cancer, Eye Disorder, Memory Impairment, Thyroid Disorder Additional Past Medical History / Comment(s): Prostate CA with radiation/urinary retention/self caths 4 times a day-8am,2p,8pm,2am/ occasional incontinence of urine, frequent UTIs and has confusion with UTIs, stable benign pituitary mass, hyponatremia, chronic anemia, bilateral macular degeneration, hypothyroidism, pt's feet/legs are cold all the time. History of Any Multi-Drug Resistant Organisms: Other MDRO Past Surgical History: Adenoidectomy, Tonsillectomy Additional Past Surgical History / Comment(s): EGD/colonoscopy, bilateral cataract removals/lens implants, midline Past Anesthesia/Blood Transfusion Reactions: No Reported Reaction Past Psychological History: No Psychological Hx Reported Smoking Status: Former smoker - Past Family History Father Family Medical History: Cancer Additional Family Medical History / Comment(s): Colon CA, at 74. Mother Family Medical History: No Reported History, CVA/TIA Additional Family Medical History / Comment(s): Mother of a CVA at the age of 83yrs. General Exam - General Exam Comments Initial Comments: GENERAL: Patient is well-developed and well-nourished. Patient is nontoxic and well- hydrated and is in no acute distress. ENT: Neck is soft and supple. No significant lymphadenopathy is noted. Oropharynx is clear. Moist mucous membranes. Neck has full range of motion without eliciting any pain. EYES: The sclera were anicteric and conjunctiva were pink and moist. Extraocular movements were intact and pupils were equal round and reactive to light. Eyelids were unremarkable. PULMONARY: Unlabored respirations. Good breath sounds bilaterally. No audible rales rhonchi or wheezing was noted. CARDIOVASCULAR: There is a regular rate and rhythm without any murmurs gallops or rubs. Occasional extrasystole ABDOMEN: Soft and nontender with normal bowel sounds. No palpable organomegaly was noted. There is no palpable pulsatile mass. SKIN: Skin is clear with no lesions or rashes and otherwise unremarkable. NEUROLOGIC: Patient is alert and oriented x3. Cranial nerves II through XII are grossly intact. Motor and sensory are also intact. Normal speech, volume and content. Symmetrical smile. MUSCULOSKELETAL: Normal extremities with adequate strength and full range of motion. No lower extremity swelling or edema. No calf tenderness. LYMPHATICS: No significant lymphadenopathy is noted PSYCHIATRIC: Normal psychiatric evaluation. Limitations: no limitations Course Vital Signs 01/19/20 01/19/20 01/19/20 10:18 10:30 11:00 Temperature 98.0 F Pulse Rate 67 64 67 Respiratory 18 14 18 Rate Blood Pressure 95/77 95/77 104/94 O2 Sat by Pulse 95 96 98 Oximetry 01/19/20 01/19/20 12:00 12:30 Temperature Pulse Rate 68 62 Respiratory 18 16 Rate Blood Pressure 115/51 110/47 O2 Sat by Pulse 98 92 L Oximetry Procedures - Catheter Insertion (Urinary) Indications: other (Patient needed a UA because of his potential urinary tract infection) Prophylactic Antibiotics Given: No Bladder Scan/US before Catheterization: No Preparation: Povidone-Iodine Type of Catheter Inserted: Black, coude tip Catheter Balloon Size (mLs): 10 Topical Anesthesia Used: No Results: successfully catheterized-immediate flow Patient Tolerated Procedure: well Complications: none Medical Decision Making - Medical Decision Making EKG shows sinus rhythm with occasional PVC at 60 bpm IL interval 182 QRS and 140 Q-T intervals 458 QTC is 487 per patient's EKG shows no ST segment elevation however it shows multiple PVCs - Lab Data Result diagrams: 01/19/20 10:29 01/19/20 10:29 Lab Results 01/19/20 01/19/20 01/19/20 Range/Units 10:29 10:29 10:29 WBC 8.9 (3.8-10.6) k/uL RBC 3.58 L (4.30-5.90) m/uL Hgb 11.7 L (13.0-17.5) gm/dL Hct 35.5 L (39.0-53.0) % MCV 99.3 (80.0-100.0) fL MCH 32.6 (25.0-35.0) pg MCHC 32.9 (31.0-37.0) g/dL RDW 13.5 (11.5-15.5) % Plt Count 150 D (150-450) k/uL Neutrophils % 74 % Lymphocytes % 17 % Monocytes % 6 % Eosinophils % 1 % Basophils % 0 % Neutrophils # 6.6 (1.3-7.7) k/uL Lymphocytes # 1.6 (1.0-4.8) k/uL Monocytes # 0.5 (0-1.0) k/uL Eosinophils # 0.1 (0-0.7) k/uL Basophils # 0.0 (0-0.2) k/uL PT 11.0 (9.0-12.0) sec INR 1.1 (<1.2) APTT 27.2 (22.0-30.0) sec Sodium 134 L (137-145) mmol/L Potassium 4.0 (3.5-5.1) mmol/L Chloride 103 (98-107) mmol/L Carbon Dioxide 25 (22-30) mmol/L Anion Gap 6 mmol/L BUN 21 H (9-20) mg/dL Creatinine 1.05 (0.66-1.25) mg/dL Est GFR (CKD-EPI)AfAm 74 (>60 ml/min/1.73 sqM) Est GFR (CKD-EPI)NonAf 64 (>60 ml/min/1.73 sqM) Glucose 84 (74-99) mg/dL Plasma Lactic Acid [place] (0.7-2.0) mmol/L Calcium 8.1 L (8.4-10.2) mg/dL Magnesium 1.8 (1.6-2.3) mg/dL Total Bilirubin 0.8 (0.2-1.3) mg/dL AST 18 (17-59) U/L ALT 15 (4-49) U/L Alkaline Phosphatase 65 (38-126) U/L Troponin I (0.000-0.034) ng/mL Total Protein 6.0 L (6.3-8.2) g/dL Albumin 3.1 L (3.5-5.0) g/dL Urine Color Urine Appearance (Clear) Urine pH (5.0-8.0) Ur Specific [place] (1.001-1.035) Urine Protein (Negative) Urine Glucose (UA) (Negative) Urine Ketones (Negative) Urine Blood (Negative) Urine Nitrite (Negative) Urine Bilirubin (Negative) Urine Urobilinogen (<2.0) mg/dL Ur Leukocyte Esterase (Negative) Urine RBC (0-5) /hpf Urine WBC (0-5) /hpf Urine WBC Clumps (None) /hpf Urine Mucus (None) /hpf 01/19/20 01/19/20 01/19/20 Range/Units 10:29 10:29 12:00 WBC (3.8-10.6) k/uL RBC (4.30-5.90) m/uL Hgb (13.0-17.5) gm/dL Hct (39.0-53.0) % MCV (80.0-100.0) fL MCH (25.0-35.0) pg MCHC (31.0-37.0) g/dL RDW (11.5-15.5) % Plt Count (150-450) k/uL Neutrophils % % Lymphocytes % % Monocytes % % Eosinophils % % Basophils % % Neutrophils # (1.3-7.7) k/uL Lymphocytes # (1.0-4.8) k/uL Monocytes # (0-1.0) k/uL Eosinophils # (0-0.7) k/uL Basophils # (0-0.2) k/uL PT (9.0-12.0) sec INR (<1.2) APTT (22.0-30.0) sec Sodium (137-145) mmol/L Potassium (3.5-5.1) mmol/L Chloride (98-107) mmol/L Carbon Dioxide (22-30) mmol/L Anion Gap mmol/L BUN (9-20) mg/dL Creatinine (0.66-1.25) mg/dL Est GFR (CKD-EPI)AfAm (>60 ml/min/1.73 sqM) Est GFR (CKD-EPI)NonAf (>60 ml/min/1.73 sqM) Glucose (74-99) mg/dL Plasma Lactic Acid [place] 1.1 (0.7-2.0) mmol/L Calcium (8.4-10.2) mg/dL Magnesium (1.6-2.3) mg/dL Total Bilirubin (0.2-1.3) mg/dL AST (17-59) U/L ALT (4-49) U/L Alkaline Phosphatase (38-126) U/L Troponin I <0.012 (0.000-0.034) ng/mL Total Protein (6.3-8.2) g/dL Albumin (3.5-5.0) g/dL Urine Color Yellow Urine Appearance Cloudy (Clear) Urine pH 5.5 (5.0-8.0) Ur Specific [place] 1.017 (1.001-1.035) Urine Protein 1+ H (Negative) Urine Glucose (UA) Negative (Negative) Urine Ketones Negative (Negative) Urine Blood Trace H (Negative) Urine Nitrite Negative (Negative) Urine Bilirubin Negative (Negative) Urine Urobilinogen <2.0 (<2.0) mg/dL Ur Leukocyte Esterase Large H (Negative) Urine RBC 19 H (0-5) /hpf Urine WBC >182 H (0-5) /hpf Urine WBC Clumps Moderate H (None) /hpf Urine Mucus Occasional H (None) /hpf Disposition Clinical Impression: Urinary tract infection, Generalized weakness Disposition: ADMITTED IP TO THIS HOSP Referrals: Vanessa Oneill MD [Primary Care Provider] - 1-2 days Time of Disposition: 12:43
[2020-01-19 11:11] LABS: Basophils % (A) 0 %; Eosinophils # (A) 0.1 k/uL (0-0.7); Eosinophils % (A) 1 %; HCT 35.5 % (39.0-53.0); HGB 11.7 gm/dL (13.0-17.5); Lymphocytes # (A) 1.6 k/uL (1.0-4.8); Lymphocytes % (A) 17 %; MCH 32.6 pg (25.0-35.0); MCHC 32.9 g/dL (31.0-37.0); MCV 99.3 fL (80.0-100.0); Mean Platelet Volume 6.8; Monocytes # (A) 0.5 k/uL (0-1.0); Monocytes % (A) 6 %; Neutrophils # (A) 6.6 k/uL (1.3-7.7); Neutrophils % (A) 74 %; RBC 3.58 m/uL (4.30-5.90); RDW 13.5 % (11.5-15.5); WBC 8.9 k/uL (3.8-10.6)
[2020-01-19 11:14] LABS: Platelet Count 150 k/uL (150-450)
[2020-01-19 11:27] LABS: Albumin 3.1 g/dL (3.5-5.0); Calcium 8.1 mg/dL (8.4-10.2); INR 1.1 (<1.2); Magnesium 1.8 mg/dL (1.6-2.3); Partial Thromboplastin Time 27.2 sec (22.0-30.0); Total Bilirubin 0.8 mg/dL (0.2-1.3)
--- NOTE | 2020-01-19 11:46 | XR ---
EXAMINATION TYPE: XR chest 2V DATE OF EXAM: 01/19/2020 COMPARISON: 11/19/2019 HISTORY: Shortness of breath TECHNIQUE: Frontal and lateral views of the chest are obtained. FINDINGS: Scattered senescent parenchymal changes noted. No evidence for infiltrate. No evidence for atelectasis. Heart size is stable. Mediastinal structures are stable and grossly unremarkable. No evidence for hilar prominence. Degenerative changes dorsal spine. IMPRESSION: 1. No evidence for acute pulmonary disease.
[2020-01-19 12:23] LABS: Appearance,Urine Cloudy (Clear); Bilirubin,Urine Negative (Negative); Blood,Urine Trace (Negative); Color,Urine Yellow; Glucose,Urine (UA) Negative (Negative); Ketones,Urine Negative (Negative); Leukocyte Esterase,Urine Large (Negative); Mucus,Urine Occasional /hpf; Nitrite,Urine Negative (Negative); PH, Urine 5.5 (5.0-8.0); Protein,Urine 1+ (Negative); RBC,Urine 19 /hpf (0-5); Specific Gravity,Urine 1.017 (1.001-1.035); Urobilinogen,Urine <2.0 mg/dL (<2.0); WBC,Urine >182 /hpf (0-5)
[2020-01-19] MEDS ORDERED: cefTRIAXone IN SWFI 1,000 MG/10 ML SYRINGE IVP STA ×2 (12:31→12:45)
[2020-01-19] MEDS ORDERED: SODIUM CHLORIDE 0.9% 1,000 ML IV ONE (12:44)
[2020-01-19] MEDS ORDERED: IBUPROFEN 400 MG TAB PO PRN (17:16)
[2020-01-19] MEDS ORDERED: ACETAMINOPHEN TAB 325 MG TAB PO STA (17:17)
[2020-01-19] MEDS ORDERED: NON FORMULARY DRUG (Vit C/E/Zn/Coppr/Lutein/Zeaxan [Preservision Areds 2 Softgel] 1 CAP) PO SCH (21:00)
[2020-01-19] MEDS: LACTOBACILLUS ACIDOPH & BULGAR 1 EACH PACKET PO SCH (22:09)
[2020-01-19] MEDS: amLODIPine 5 MG TAB PO SCH (22:09)
[2020-01-20] MEDS: HEPARIN SODIUM,PORCINE 5,000 UNIT/ML 1 ML VIAL SQ SCH ×3 (00:10→16:52)
[2020-01-20] MEDS: ACETAMINOPHEN TAB 325 MG TAB PO PRN ×2 (01:49→07:45)
[2020-01-20] MEDS: LEVOTHYROXINE 125 MCG TAB PO SCH (05:50)
[2020-01-20 07:31] LABS: Basophils % (A) 0 %; Eosinophils # (A) 0.1 k/uL (0-0.7); Eosinophils % (A) 1 %; HCT 36.4 % (39.0-53.0); HGB 11.7 gm/dL (13.0-17.5); Lymphocytes # (A) 1.2 k/uL (1.0-4.8); Lymphocytes % (A) 18 %; MCH 32.1 pg (25.0-35.0); MCV 100.4 fL (80.0-100.0); Monocytes # (A) 0.4 k/uL (0-1.0); Monocytes % (A) 6 %; Neutrophils # (A) 4.9 k/uL (1.3-7.7); Neutrophils % (A) 73 %; Platelet Count 127 k/uL (150-450); RBC 3.63 m/uL (4.30-5.90); RDW 13.4 % (11.5-15.5); WBC 6.7 k/uL (3.8-10.6)
[2020-01-20] MEDS: HYDROCORTISONE 10 MG TAB PO SCH ×2 (07:45→14:03)
[2020-01-20] MEDS: amLODIPine 5 MG TAB PO SCH (07:49)
[2020-01-20] MEDS: LACTOBACILLUS ACIDOPH & BULGAR 1 EACH PACKET PO SCH ×2 (07:53→21:54)
[2020-01-20 08:55] LABS: Calcium 7.9 mg/dL (8.4-10.2); Potassium 4.3 mmol/L (3.5-5.1)
--- NOTE | 2020-01-20 20:31 | P.HPIM ---
History of Present Illness H&P Date: 01/19/20 Chief Complaint: Generalized weakness. Mr. Foreman is an 83-year-old male with a past medical history of thyroid disorder, prostate cancer status post radiation, chronic urinary retention does self cath, recurrent urinary tract infection with Enterobacter and Klebsiella, was brought to the hospital due to complaints of Generalized weakness since yesterday evening. Patient states that she got up in the morning and felt very weak and could not walk or get out of the bed. Otherwise no cough or sputum production. No shortness of breath or chest pain. Patient was febrile on admission with T-max 103 F. As per EMS patient was febrile at home and was given a dose of Tylenol. Denies any dysuria or hematuria. Denies any increased urinary frequency. No complaints of nausea vomiting or abdominal pain or diarrhea. No headache or dizziness or lightheadedness. Chest x-ray showed no acute cardiopulmonary process EKG showed sinus rhythm with occasional premature ventricular complexes Laboratory data showed WBC 8.9, hemoglobin 11.7, platelets 150 Sodium 134 potassium 4.0 BUN 21 creatinine 1.05 calcium 8.1 urinalysis showed cloudy with large leukocytes trace and RBCs 99 WBCs greater than 182 COVID 19 PCR not detected Review of Systems Constitutional: Patient does have fever or chills . + generalized weakness .no weight loss. Abdomen: Patient denied nausea vomiting and diarrhea and abdominal pain. Cardiovascular: Patient denies any chest pain or short of breath no pa lpitations. Respiratory: patient denied any cough is from production. No shortness of breath Neurologic: Patient denied any numbness or tingling. Musculoskeletal: Patient denies any complaints of joint swelling or deformity. Patient is lethargic and drowsy. Complete review of systems could not be obtained at this time as per HPI. Past Medical History Past Medical History: Cancer, Eye Disorder, Memory Impairment, Thyroid Disorder Additional Past Medical History / Comment(s): Prostate CA with radiation/urinary retention/self caths 4 times a day-8am,2p,8pm,2am/ occasional incontinence of urine, frequent UTIs and has confusion with UTIs, stable benign pituitary mass, hyponatremia, chronic anemia, bilateral macular degeneration, hypothyroidism, pt's feet/legs are cold all the time. History of Any Multi-Drug Resistant Organisms: Other MDRO Past Surgical History: Adenoidectomy, Tonsillectomy Additional Past Surgical History / Comment(s): EGD/colonoscopy, bilateral cataract removals/lens implants, midline Past Anesthesia/Blood Transfusion Reactions: No Reported Reaction Past Psychological History: No Psychological Hx Reported Smoking Status: Former smoker - Past Family History Father Family Medical History: Cancer Additional Family Medical History / Comment(s): Colon CA, at 74. Mother Family Medical History: No Reported History, CVA/TIA Additional Family Medical History / Comment(s): Mother of a CVA at the age of 83yrs. Medications and Allergies Home Medications Medication Instructions Recorded Confirmed Type Vit C/E/Zn/Coppr/Lutein/Zeaxan 1 cap PO BID 03/18/18 01/19/20 History [Preservision Areds 2 Softgel] L.acidoph,Paracasei, B.lactis 1 cap PO BID 04/17/18 01/19/20 History [Probiotic] Levothyroxine Sodium [Synthroid] 125 mcg PO DAILY 02/25/19 01/19/20 History Hydrocortisone 20 mg PO QAM 10/26/19 01/19/20 History Hydrocortisone [Cortef] 10 mg PO DAILY@1400 11/17/19 01/19/20 History Allergies Allergy/AdvReac Type Severity Reaction Status Date / Time sulfamethoxazole Allergy Rash/Hives Verified 11/17/19 11:10 [From Bactrim] trimethoprim [From Bactrim] Allergy Rash/Hives Verified 11/17/19 11:10 Physical Exam Vitals: Vital Signs Temp Pulse Pulse Resp BP BP Pulse Ox 01/19/20 18:16 88 20 01/19/20 18:03 102.8 F H 88 20 176/75 98 01/19/20 16:54 103.0 F H 92 18 151/101 96 01/19/20 14:30 80 20 127/89 95 01/19/20 13:30 76 13 135/110 97 01/19/20 13:00 80 16 94/50 93 L 01/19/20 12:30 62 16 110/47 92 L 01/19/20 12:00 68 18 115/51 98 01/19/20 11:00 67 18 104/94 98 01/19/20 10:30 64 14 95/77 96 01/19/20 10:18 98.0 F 67 18 95/77 95 Intake and Output 05/01/19/20 01/19/20 06:59 14:59 22:59 Other: Voiding Method Indwelling Catheter Weight 90.718 kg PHYSICAL EXAMINATION: Patient is lying in the bed comfortably, no acute distress, awake alert and oriented.Lethargic and drowsy.. HEENT: Normocephalic. Neck is supple. Pupils reactive. Nostrils clear. Oral cavity is moist. Ears reveal no drainage. Neck reveals no JVD, carotid bruits, or thyromegaly. CHEST EXAMINATION: Trachea is central. Symmetrical expansion. Bibasilar diminished air entry., Lung frey clear to auscultation and percussion. CARDIAC: Normal S1, S2 with no gallops. No murmurs ABDOMEN: Soft. Bowel sounds normal. No organomegaly. No abdominal bruits. Extremities: reveal no edema. No clubbing or cyanosis Neurologically awake, alert, oriented x2 with well-coordinated movements. No focal deficits noted Skin: No rash or skin lesions. Psychiatric: Coperative. Could not be assessed at this time. Musculoskeletal: No joint swelling or deformity. Normal range of motion. Results CBC & Chem 7: 01/20/20 07:01 01/20/20 07:01 Labs: Abnormal Lab Results - Last 24 Hours (Table) 01/19/20 01/19/20 01/19/20 Range/Units 10:29 10:29 12:00 RBC 3.58 L (4.30-5.90) m/uL Hgb 11.7 L (13.0-17.5) gm/dL Hct 35.5 L (39.0-53.0) % Sodium 134 L (137-145) mmol/L BUN 21 H (9-20) mg/dL Calcium 8.1 L (8.4-10.2) mg/dL Total Protein 6.0 L (6.3-8.2) g/dL Albumin 3.1 L (3.5-5.0) g/dL Urine Protein 1+ H (Negative) Urine Blood Trace H (Negative) Ur Leukocyte Esterase Large H (Negative) Urine RBC 19 H (0-5) /hpf Urine WBC >182 H (0-5) /hpf Urine WBC Clumps Moderate H (None) /hpf Urine Mucus Occasional H (None) /hpf Microbiology - Last 24 Hours (Table) 01/19/20 12:00 Urine Culture - Preliminary Urine,Voided Thrombosis Risk Factor Assmnt - DVT/VTE Prophylaxis DVT/VTE Prophylaxis: Pharmacologic Prophylaxis ordered Assessment and Plan Assessment: Generalized weakness likely due to infection and dehydration Acute urinary tract infection patient has history of multiple UTIs with Enterobacter and Klebsiella- straight catheterization at home Acute metabolic encephalopathy secondary to infection. improved now Pitutary adenoma Hypoadrenalism Hypothyroidism Obesity with BMI of 30 History of prostate cancer status post radiation therapy and chronic urinary retention Constipation. DVT prophylaxis with heparin subcu Plan: Patient will be continued on antibiotics in the form of ceftriaxone. Continue with IV hydration and encourage oral intake. Follow-up culture reports and further recommendations based on clinical course. Continue with home medicati ons. Time with Patient: Greater than 30
[2020-01-21] MEDS: HEPARIN SODIUM,PORCINE 5,000 UNIT/ML 1 ML VIAL SQ SCH ×3 (00:27→15:01)
[2020-01-21] MEDS: LEVOTHYROXINE 125 MCG TAB PO SCH (06:09)
[2020-01-21 06:58] LABS: Basophils % (A) 0 %; Eosinophils # (A) 0.1 k/uL (0-0.7); Eosinophils % (A) 2 %; HCT 32.7 % (39.0-53.0); HGB 10.8 gm/dL (13.0-17.5); Lymphocytes # (A) 1.1 k/uL (1.0-4.8); Lymphocytes % (A) 23 %; MCH 32.4 pg (25.0-35.0); MCV 98.3 fL (80.0-100.0); Mean Platelet Volume 7.2; Monocytes # (A) 0.4 k/uL (0-1.0); Monocytes % (A) 8 %; Neutrophils # (A) 3.2 k/uL (1.3-7.7); Neutrophils % (A) 65 %; Platelet Count 120 k/uL (150-450); RBC 3.33 m/uL (4.30-5.90); RDW 13.2 % (11.5-15.5)
[2020-01-21 07:39] VITALS: BP 134/72; PULSE 68; RESP 18; TEMP 99.1
[2020-01-21] MEDS: LACTOBACILLUS ACIDOPH & BULGAR 1 EACH PACKET PO SCH (07:43)
[2020-01-21] MEDS: amLODIPine 5 MG TAB PO SCH (07:43)
[2020-01-21] MEDS: HYDROCORTISONE 10 MG TAB PO SCH ×2 (07:43→14:25)
[2020-01-21 10:41] LABS: T4, Free (Free Thyroxine) 1.35 ng/dL (0.78-2.19)
--- NOTE | 2020-01-29 22:11 | P.DS ---
Providers Date of admission: 01/21/20 08:58 Expected date of discharge: 01/21/20 Attending physician: Atif Eisenberg Primary care physician: Vanessa Oneill [facility] Course: Discharge diagnosis Generalized weakness likely due to infection and dehydration. improved. Acute urinary tract infection. cx showed no growth patient has history of multiple UTIs with Enterobacter and Klebsiella- straight catheterization at home Acute metabolic encephalopathy secondary to infection. improved now Pitutary adenoma Hypoadrenalism Hypothyroidism Obesity with BMI of 30 History of prostate cancer status post radiation therapy and chronic urinary retention Constipation. DVT prophylaxis with heparin subcu Hospital course Mr. Foreman is an 83-year-old male with a past medical history of thyroid disorder, prostate cancer status post radiation, chronic urinary retention does self cath, recurrent urinary tract infection with Enterobacter and Klebsiella, was brought to the hospital due to complaints of Generalized weakness since yesterday evening. Patient states that she got up in the morning and felt very weak and could not walk or get out of the bed. Otherwise no cough or sputum production. No shortness of breath or chest pain. Patient was febrile on admission with T-max 103 F. As per EMS patient was febrile at home and was given a dose of Tylenol. Denies any dysuria or hematuria. Denies any increased urinary frequency. No complaints of nausea vomiting or abdominal pain or diarrhea. No headache or dizziness or lightheadedness. Chest x-ray showed no acute cardiopulmonary process EKG showed sinus rhythm with occasional premature ventricular complexes Laboratory data showed WBC 8.9, hemoglobin 11.7, platelets 150 Sodium 134 potassium 4.0 BUN 21 creatinine 1.05 calcium 8.1 urinalysis showed cloudy with large leukocytes trace and RBCs 99 WBCs greater than 182 COVID 19 PCR not detected 01/20/2020 Patient is currently lying in the bed comfortably. Patient is more awake and oriented. Able to tolerate oral diet now. Urine culture is pending. Otherwise patient is being continued on antibiotics in the form of ceftriaxone. Patient has been afebrile. No nausea vomiting or abdominal pain. PT OT will be consulted. 01/21/2020 Patient is awake alert oriented x3. Able to ambulate without much support. Urine culture showed no growth. Tolerating oral diet. Patient will be continued on straight catheterization at home. Black catheter has been discontinued. Patient is able to void spontaneously. Antibiotics have been discontinued. TSH level is low but free T4 level is within normal limits. B12 and folate levels within normal limits. Patient wants to be discharged home. PHYSICAL EXAMINATION: Patient is lying in the bed comfortably, no acute distress, awake alert and oriented. HEENT: Normocephalic. Neck is supple. Pupils reactive. Nostrils clear. Oral cavity is moist. Ears reveal no drainage. Neck reveals no JVD, carotid bruits, or thyromegaly. CHEST EXAMINATION: Trachea is central. Symmetrical expansion. Lung frey clear to auscultation and percussion. CARDIAC: Normal S1, S2 with no gallops. No murmurs ABDOMEN: Soft. Bowel sounds normal. No organomegaly. No abdominal bruits. Extremities: reveal no edema. No clubbing or cyanosis Neurologically awake, alert, oriented x2-3 with well-coordinated movements. No focal deficits noted Skin: No rash or skin lesions. Psychiatric: Coperative. Musculoskeletal: No joint swelling or deformity. Normal range of motion. Discharge vitals reviewed. Patient Condition at Discharge: Stable Plan - Discharge Summary Discharge Rx Participant: No New Discharge Prescriptions: Continue Vit C/E/Zn/Coppr/Lutein/Zeaxan [Preservision Areds 2 Softgel] 1 cap PO BID L.acidoph,Paracasei, B.lactis [Probiotic] 1 cap PO BID Levothyroxine Sodium [Synthroid] 125 mcg PO DAILY Hydrocortisone 20 mg PO QAM Hydrocortisone [Cortef] 10 mg PO DAILY@1400 Discharge Medication List Vit C/E/Zn/Coppr/Lutein/Zeaxan [Preservision Areds 2 Softgel] 1 cap PO BID 03/18/18 [History] L.acidoph,Paracasei, B.lactis [Probiotic] 1 cap PO BID 04/17/18 [History] Levothyroxine Sodium [Synthroid] 125 mcg PO DAILY 02/25/19 [History] Hydrocortisone 20 mg PO QAM 10/26/19 [History] Hydrocortisone [Cortef] 10 mg PO DAILY@1400 11/17/19 [History] Follow up Appointment(s)/Referral(s): Vanessa Oneill MD [Primary Care Provider] - 01/28/20 12:20 pm (This will be a telehealth call. They will send a text message to you) Patient Instructions/Handouts: Urinary Tract Infection in Men (DC) Discharge Disposition: HOME SELF-CARE
--- NOTE | 2020-01-29 22:12 | P.PN ---
Subjective Progress Note Date: 01/20/20 Principal diagnosis: Acute urinary tract infection Altered mental status. Mr. Foreman is an 83-year-old male with a past medical history of thyroid disorder, prostate cancer status post radiation, chronic urinary retention does self cath, recurrent urinary tract infection with Enterobacter and Klebsiella, was brought to the hospital due to complaints of Generalized weakness since yesterday evening. Patient states that she got up in the morning and felt very weak and could not walk or get out of the bed. Otherwise no cough or sputum production. No shortness of breath or chest pain. Patient was febrile on admission with T-max 103 F. As per EMS patient was febrile at home and was given a dose of Tylenol. Denies any dysuria or hematuria. Denies any increased urinary frequency. No complaints of nausea vomiting or abdominal pain or diarrhea. No headache or dizziness or lightheadedness. Chest x-ray showed no acute cardiopulmonary process EKG showed sinus rhythm with occasional premature ventricular complexes Laboratory data showed WBC 8.9, hemoglobin 11.7, platelets 150 Sodium 134 potassium 4.0 BUN 21 creatinine 1.05 calcium 8.1 urinalysis showed cloudy with large leukocytes trace and RBCs 99 WBCs greater than 182 COVID 19 PCR not detected 01/20/2020 Patient is currently lying in the bed comfortably. Patient is more awake and oriented. Able to tolerate oral diet now. Urine culture is pending. Otherwise patient is being continued on antibiotics in the form of ceftriaxone. Patient has been afebrile. No nausea vomiting or abdominal pain. PT OT will be consulted. Current medications reviewed. Objective - Vital Signs Vital signs: Vital Signs Temp 99.1 F 01/21/20 07:00 Pulse 68 01/21/20 07:00 Resp 18 01/21/20 07:00 BP 134/72 01/21/20 07:00 Pulse Ox 93 L 01/21/20 07:00 Intake & Output 01/20/20 01/21/20 01/21/20 18:59 06:59 18:59 Intake Total 650 Output Total 800 675 1 Balance -150 -675 -1 Intake: Intake, IV Titration 450 Amount Sodium Chloride 0.9% 1, 450 000 ml @ 75 mls/hr IV . [id number] ONE Rx#:[id number] Oral 200 Output: Urine 800 675 Stool 1 Other: Voiding Method Indwelling Catheter Indwelling Catheter Indwelling Catheter # Bowel Movements 1 - Exam PHYSICAL EXAMINATION: Patient is lying in the bed comfortably, no acute distress, awake alert and oriented. HEENT: Normocephalic. Neck is supple. Pupils reactive. Nostrils clear. Oral cavity is moist. Ears reveal no drainage. Neck reveals no JVD, carotid bruits, or thyromegaly. CHEST EXAMINATION: Trachea is central. Symmetrical expansion. Lung frey clear to auscultation and percussion. CARDIAC: Normal S1, S2 with no gallops. No murmurs ABDOMEN: Soft. Bowel sounds normal. No organomegaly. No abdominal bruits. Extremities: reveal no edema. No clubbing or cyanosis Neurologically awake, alert, oriented x2 with well-coordinated movements. No focal deficits noted Skin: No rash or skin lesions. Psychiatric: Coperative. Musculoskeletal: No joint swelling or deformity. Normal range of motion. - Labs CBC & Chem 7: 01/21/20 06:09 01/20/20 07:01 Labs: Abnormal Lab Results - Last 24 Hours (Table) 01/21/20 01/21/20 Range/Units 06:09 06:09 RBC 3.33 L (4.30-5.90) m/uL Hgb 10.8 L (13.0-17.5) gm/dL Hct 32.7 L (39.0-53.0) % Plt Count 120 L (150-450) k/uL TSH <0.015 L (0.465-4.680) mIU/L Microbiology - Last 24 Hours (Table) 01/19/20 12:00 Urine Culture - Final Urine,Voided Assessment and Plan Assessment: Generalized weakness likely due to infection and dehydration Acute urinary tract infection patient has history of multiple UTIs with Enterobacter and Klebsiella- straight catheterization at home Acute metabolic encephalopathy secondary to infection. improved now Pitutary adenoma Hypoadrenalism Hypothyroidism Obesity with BMI of 30 History of prostate cancer status post radiation therapy and chronic urinary retention Constipation. DVT prophylaxis with heparin subcu Plan: Patient will be continued on antibiotics in the form of ceftriaxone. Continue with IV hydration and encourage oral intake. Follow-up culture reports and further recommendations based on clinical course. Continue with home medications. Time with Patient: Greater than 30
== END 2020-01-21 16:12 | disposition home or self-care (01) | DRG 689 ==
LOC: EC 10:12 → 4SSUR 12:55 → OBSVTOIN 01-21 08:58
PROVIDERS: ADMIT Internal Medicine; ATTEND Internal Medicine
DX: N39.0 Urinary tract infection, site not specified (principal); G93.41 Metabolic encephalopathy; E27.40 Unspecified adrenocortical insufficiency; E86.0 Dehydration; E66.9 Obesity, unspecified; E03.9 Hypothyroidism, unspecified; I49.3 Ventricular premature depolarization; Z96.1 Presence of intraocular lens; Z68.30 Body mass index [BMI] 30.0-30.9, adult; Z79.82 Long term (current) use of aspirin; Z79.890 Hormone replacement therapy; Z11.59 Encounter for screening for other viral diseases; Z80.0 Family history of malignant neoplasm of digestive organs; Z82.3 Family history of stroke; Z85.46 Personal history of malignant neoplasm of prostate; Z87.440 Personal history of urinary (tract) infections; Z87.891 Personal history of nicotine dependence; Z92.3 Personal history of irradiation; Z88.2 Allergy status to sulfonamides; Z86.19 Personal history of other infectious and parasitic diseases; Z90.89 Acquired absence of other organs; Z98.890 Other specified postprocedural states; Z98.42 Cataract extraction status, left eye; Z98.41 Cataract extraction status, right eye
CPT/HCPCS: 36415; 51702; 71046; 80048; 80053; 81001; 82607; 82747; 83605; 83735; 84439; 84443; 84484; 85025; 85610; 85730; 87086; 87635; 93005; 96361; 96374; 99285

== ENCOUNTER 2020-02-15 19:08 | Inpatient (IN) | payer MEDICARE, BC ==
[2020-02-15 19:19] LABS: Glucose,Whole Blood 119 mg/dL (75-99)
--- NOTE | 2020-02-15 19:32 | ED ---
Weakness HPI - General Chief complaint: Weakness Stated complaint: UTI Time Seen by Provider: 02/15/20 19:10 Source: patient, EMS Mode of arrival: ambulatory Limitations: no limitations - History of Present Illness Initial comments: Patient is an 84-year-old male past medical history of prostate cancer with radiation, chronic urinary retention with self-catheterization and memory impairment who presents to the emergency department from home. EMS provided the history as the patient is a poor historian. They state that the patient's as had some altered mental status at home likely secondary to an acute urinary tract infection. The patient self catheterizes 4 times a day and gets frequent urinary tract infections leading to sepsis and altered mental status. The patient has taken Cipro yesterday and today however continues to have confusion and fevers. The patient has gotten Tylenol at home for fever control however rises 103 time. He denies having any pain. Remainder of the HPI is limited because of the patient's current mentation - Related Data Home Medications Medication Instructions Recorded Confirmed Vit C/E/Zn/Coppr/Lutein/Zeaxan 1 cap PO BID 03/18/18 02/15/20 [Preservision Areds 2 Softgel] L.acidoph,Paracasei, B.lactis 1 cap PO BID 04/17/18 02/15/20 [Probiotic] Hydrocortisone 20 mg PO QAM 10/26/19 02/15/20 Hydrocortisone [Cortef] 10 mg PO DAILY@1400 11/17/19 02/15/20 Acetaminophen [Tylenol] 500 mg PO Q4-6H PRN 02/15/20 02/15/20 Previous Rx's Medication Instructions Recorded Cefuroxime Axetil [Ceftin] 500 mg PO BID 7 Days #14 tab 02/18/20 Famotidine [Pepcid] 20 mg PO BID tab 02/18/20 Levothyroxine Sodium [Synthroid] 150 mcg PO DAILY@0630 tab 02/18/20 Allergies Allergy/AdvReac Type Severity Reaction Status Date / Time sulfamethoxazole Allergy Rash/Hives Verified 02/15/20 22:43 [From Bactrim] trimethoprim [From Bactrim] Allergy Rash/Hives Verified 02/15/20 22:43 Review of Systems ROS Statement: Those systems with pertinent positive or pertinent negative responses have been documented in the HPI. ROS Other: All systems not noted in ROS Statement are negative. Past Medical History Past Medical History: Cancer, Eye Disorder, Memory Impairment, Thyroid Disorder Additional Past Medical History / Comment(s): Prostate CA with radiation/urinary retention/self caths 4 times a day-8am,2p,8pm,2am/ occasional incontinence of urine, frequent UTIs and has confusion with UTIs, stable benign pituitary mass, hyponatremia, chronic anemia, bilateral macular degeneration, hypothyroidism, pt's feet/legs are cold all the time. History of Any Multi-Drug Resistant Organisms: Other MDRO Past Surgical History: Adenoidectomy, Tonsillectomy Additional Past Surgical History / Comment(s): EGD/colonoscopy, bilateral cataract removals/lens implants, midline Past Anesthesia/Blood Transfusion Reactions: No Reported Reaction Past Psychological History: No Psychological Hx Reported Smoking Status: Former smoker Past Alcohol Use History: None Reported Past Drug Use History: None Reported - Past Family History Father Family Medical History: Cancer Additional Family Medical History / Comment(s): Colon CA, at 74. Mother Family Medical History: No Reported History, CVA/TIA Additional Family Medical History / Comment(s): Mother of a CVA at the age of 83yrs. General Exam Limitations: altered mental status General appearance: in no apparent distress, lethargic Head exam: Present: atraumatic, normocephalic Eye exam: Present: normal appearance, PERRL, EOMI. Absent: scleral icterus, conjunctival injection, periorbital swelling ENT exam: Present: mucous membranes dry Neck exam: Present: normal inspection. Absent: tenderness, meningismus, lym phadenopathy Respiratory exam: Present: normal lung sounds bilaterally. Absent: respiratory distress, wheezes, rales, rhonchi, stridor Cardiovascular Exam: Present: regular rate, normal rhythm, normal heart sounds. Absent: systolic murmur, diastolic murmur, rubs, gallop, clicks GI/Abdominal exam: Present: soft, normal bowel sounds. Absent: distended, tenderness, guarding, rebound, rigid Extremities exam: Present: normal inspection, full ROM, normal capillary refill. Absent: tenderness, pedal edema, joint swelling, calf tenderness Back exam: Present: normal inspection Neurological exam: Present: alert Psychiatric exam: Present: flat affect Skin exam: Present: warm, dry, intact, normal color. Absent: rash Course Vital Signs 02/15/20 02/15/20 02/15/20 19:10 19:25 19:40 Temperature 101.3 F H 102.9 F H 103.1 F H Pulse Rate 79 76 71 Respiratory 18 18 18 Rate Blood Pressure 152/102 154/102 166/66 O2 Sat by Pulse 96 94 L 97 Oximetry 02/15/20 02/15/20 02/15/20 19:55 20:10 21:00 Temperature 103.1 F H 102.6 F H 99.0 F Pulse Rate 72 73 68 Respiratory 16 18 16 Rate Blood Pressure 162/79 127/42 122/63 O2 Sat by Pulse 97 97 97 Oximetry 02/15/20 22:13 Temperature 98.1 F Pulse Rate 65 Respiratory 16 Rate Blood Pressure 131/54 O2 Sat by Pulse 96 Oximetry EKG Findings - EKG Comments: EKG Findings:: EKG demonstrates a normal sinus rhythm with ventricular rate of 72. SD 166. QRS 140. QTC of 451. There is a right bundle branch block present. No acute ST segment elevations or depressions concerning for ischemic changes Medical Decision Making - Medical Decision Making Upon arrival the patient is placed into room 11. A thorough history and physi sarai exam is performed. Per for IV is established. The patient is given a liter bolus of normal saline as it does not appear that the patient has a history of heart failure. Laboratory studies were conducted. Patient history For urine. Lab studies are remarkable for a sodium of 129. TSH is low at 0.015 however free T4 is normal at 1.5. Urinalysis shows large leukocyte esterase, 9 red blood cells, greater than 182 white blood cells, many white blood cell clumps and rare bacteria. Appears that the patient previously had Klebsiella and Enterobacter which was sensitive to Rocephin. I did obtain blood cultures and gave the patient a dose of Rocephin. Is also given Motrin for fever control. Patient's fever does improve and he does become more arousable. Recommended hospital admission for which the patient did agree to. Discussed the case with Dr. Eisenberg who accepted admission. Patient was transferred to floor in stable condition - Lab Data Result diagrams: 02/16/20 08:00 02/18/20 09:12 Lab Results 02/15/20 02/15/20 02/15/20 Range/Units 19:17 19:22 19:22 WBC 9.6 (3.8-10.6) k/uL RBC 3.65 L (4.30-5.90) m/uL Hgb 12.3 L (13.0-17.5) gm/dL Hct 35.8 L (39.0-53.0) % MCV 98.0 (80.0-100.0) fL MCH 33.8 (25.0-35.0) pg MCHC 34.5 (31.0-37.0) g/dL RDW 13.6 (11.5-15.5) % Plt Count 137 L (150-450) k/uL Neutrophils % 79 % Lymphocytes % 14 % Monocytes % 5 % Eosinophils % 1 % Basophils % 0 % Neutrophils # 7.5 (1.3-7.7) k/uL Lymphocytes # 1.3 (1.0-4.8) k/uL Monocytes # 0.5 (0-1.0) k/uL Eosinophils # 0.1 (0-0.7) k/uL Basophils # 0.0 (0-0.2) k/uL PT 10.7 (9.0-12.0) sec INR 1.0 (<1.2) APTT 28.9 (22.0-30.0) sec Sodium (137-145) mmol/L Potassium (3.5-5.1) mmol/L Chloride (98-107) mmol/L Carbon Dioxide (22-30) mmol/L Anion Gap mmol/L BUN (9-20) mg/dL Creatinine (0.66-1.25) mg/dL Est GFR (CKD-EPI)AfAm (>60 ml/min/1.73 sqM) Est GFR (CKD-EPI)NonAf (>60 ml/min/1.73 sqM) Glucose (74-99) mg/dL POC Glucose (mg/dL) 119 H (75-99) mg/dL POC Glu Emergency Communications Operator ID Tesha, [place] Plasma Lactic Acid [place] (0.7-2.0) mmol/L Calcium (8.4-10.2) mg/dL Total Bilirubin (0.2-1.3) mg/dL AST (17-59) U/L ALT (4-49) U/L Alkaline Phosphatase (38-126) U/L Creatine Kinase (55-170) U/L Troponin I (0.000-0.034) ng/mL Total Protein (6.3-8.2) g/dL Albumin (3.5-5.0) g/dL TSH (0.465-4.680) mIU/L Free T4 (0.78-2.19) ng/dL Urine Color Urine Appearance (Clear) Urine pH (5.0-8.0) Ur Specific [place] (1.001-1.035) Urine Protein (Negative) Urine Glucose (UA) (Negative) Urine Ketones (Negative) Urine Blood (Negative) Urine Nitrite (Negative) Urine Bilirubin (Negative) Urine Urobilinogen (<2.0) mg/dL Ur Leukocyte Esterase (Negative) Urine RBC (0-5) /hpf Urine WBC (0-5) /hpf Urine WBC Clumps (None) /hpf Urine Bacteria (None) /hpf Urine Mucus (None) /hpf 02/15/20 02/15/20 02/15/20 Range/Units 19:22 19:22 19:22 WBC (3.8-10.6) k/uL RBC (4.30-5.90) m/uL Hgb (13.0-17.5) gm/dL Hct (39.0-53.0) % MCV (80.0-100.0) fL MCH (25.0-35.0) pg MCHC (31.0-37.0) g/dL RDW (11.5-15.5) % Plt Count (150-450) k/uL Neutrophils % % Lymphocytes % % Monocytes % % Eosinophils % % Basophils % % Neutrophils # (1.3-7.7) k/uL Lymphocytes # (1.0-4.8) k/uL Monocytes # (0-1.0) k/uL Eosinophils # (0-0.7) k/uL Basophils # (0-0.2) k/uL PT (9.0-12.0) sec INR (<1.2) APTT (22.0-30.0) sec Sodium 129 L (137-145) mmol/L Potassium 4.0 (3.5-5.1) mmol/L Chloride 100 (98-107) mmol/L Carbon Dioxide 24 (22-30) mmol/L Anion Gap 5 mmol/L BUN 17 (9-20) mg/dL Creatinine 0.93 (0.66-1.25) mg/dL Est GFR (CKD-EPI)AfAm 86 (>60 ml/min/1.73 sqM) Est GFR (CKD-EPI)NonAf 74 (>60 ml/min/1.73 sqM) Glucose 98 (74-99) mg/dL POC Glucose (mg/dL) (75-99) mg/dL POC Glu Emergency Communications Operator ID Plasma Lactic Acid [place] 1.1 (0.7-2.0) mmol/L Calcium 8.1 L (8.4-10.2) mg/dL Total Bilirubin 0.6 (0.2-1.3) mg/dL AST 17 (17-59) U/L ALT 14 (4-49) U/L Alkaline Phosphatase 73 (38-126) U/L Creatine Kinase <20 L (55-170) U/L Troponin I <0.012 (0.000-0.034) ng/mL Total Protein 6.4 (6.3-8.2) g/dL Albumin 3.4 L (3.5-5.0) g/dL TSH <0.015 L (0.465-4.680) mIU/L Free T4 1.50 (0.78-2.19) ng/dL Urine Color Urine Appearance (Clear) Urine pH (5.0-8.0) Ur Specific [place] (1.001-1.035) Urine Protein (Negative) Urine Glucose (UA) (Negative) Urine Ketones (Negative) Urine Blood (Negative) Urine Nitrite (Negative) Urine Bilirubin (Negative) Urine Urobilinogen (<2.0) mg/dL Ur Leukocyte Esterase (Negative) Urine RBC (0-5) /hpf Urine WBC (0-5) /hpf Urine WBC Clumps (None) /hpf Urine Bacteria (None) /hpf Urine Mucus (None) /hpf 02/15/20 Range/Units 20:15 WBC (3.8-10.6) k/uL RBC (4.30-5.90) m/uL Hgb (13.0-17.5) gm/dL Hct (39.0-53.0) % MCV (80.0-100.0) fL MCH (25.0-35.0) pg MCHC (31.0-37.0) g/dL RDW (11.5-15.5) % Plt Count (150-450) k/uL Neutrophils % % Lymphocytes % % Monocytes % % Eosinophils % % Basophils % % Neutrophils # (1.3-7.7) k/uL Lymphocytes # (1.0-4.8) k/uL Monocytes # (0-1.0) k/uL Eosinophils # (0-0.7) k/uL Basophils # (0-0.2) k/uL PT (9.0-12.0) sec INR (<1.2) APTT (22.0-30.0) sec Sodium (137-145) mmol/L Potassium (3.5-5.1) mmol/L Chloride (98-107) mmol/L Carbon Dioxide (22-30) mmol/L Anion Gap mmol/L BUN (9-20) mg/dL Creatinine (0.66-1.25) mg/dL Est GFR (CKD-EPI)AfAm (>60 ml/min/1.73 sqM) Est GFR (CKD-EPI)NonAf (>60 ml/min/1.73 sqM) Glucose (74-99) mg/dL POC Glucose (mg/dL) (75-99) mg/dL POC Glu Emergency Communications Operator ID Plasma Lactic Acid [place] (0.7-2.0) mmol/L Calcium (8.4-10.2) mg/dL Total Bilirubin (0.2-1.3) mg/dL AST (17-59) U/L ALT (4-49) U/L Alkaline Phosphatase (38-126) U/L Creatine Kinase (55-170) U/L Troponin I (0.000-0.034) ng/mL Total Protein (6.3-8.2) g/dL Albumin (3.5-5.0) g/dL TSH (0.465-4.680) mIU/L Free T4 (0.78-2.19) ng/dL Urine Color Yellow Urine Appearance Turbid (Clear) Urine pH 6.0 (5.0-8.0) Ur Specific [place] 1.011 (1.001-1.035) Urine Protein 1+ H (Negative) Urine Glucose (UA) Negative (Negative) Urine Ketones Negative (Negative) Urine Blood Small H (Negative) Urine Nitrite Negative (Negative) Urine Bilirubin Negative (Negative) Urine Urobilinogen <2.0 (<2.0) mg/dL Ur Leukocyte Esterase Large H (Negative) Urine RBC 9 H (0-5) /hpf Urine WBC >182 H (0-5) /hpf Urine WBC Clumps Many H (None) /hpf Urine Bacteria Rare H (None) /hpf Urine Mucus Rare H (None) /hpf Disposition Clinical Impression: Dehydration, Weakness, Urinary tract infection, Altered mental status Disposition: ADMITTED IP TO THIS [facility] Condition: Stable Is patient prescribed a controlled substance at d/c from ED?: No Decision to Admit Reason: Admit from EC Decision Date: 02/15/20 Decision Time: 21:54
[2020-02-15] MEDS ORDERED: SODIUM CHLORIDE 0.9% 1,000 ML IV ONE (19:35)
[2020-02-15] MEDS ORDERED: IBUPROFEN 600 MG TAB PO STA (19:35)
[2020-02-15 19:54] LABS: Basophils % (A) 0 %; Eosinophils # (A) 0.1 k/uL (0-0.7); Eosinophils % (A) 1 %; HCT 35.8 % (39.0-53.0); HGB 12.3 gm/dL (13.0-17.5); Lymphocytes # (A) 1.3 k/uL (1.0-4.8); Lymphocytes % (A) 14 %; MCH 33.8 pg (25.0-35.0); MCHC 34.5 g/dL (31.0-37.0); Mean Platelet Volume 6.6; Monocytes # (A) 0.5 k/uL (0-1.0); Monocytes % (A) 5 %; Neutrophils # (A) 7.5 k/uL (1.3-7.7); Neutrophils % (A) 79 %; Platelet Count 137 k/uL (150-450); RBC 3.65 m/uL (4.30-5.90); RDW 13.6 % (11.5-15.5); WBC 9.6 k/uL (3.8-10.6)
[2020-02-15 20:02] LABS: ALT 14 U/L (4-49); AST 17 U/L (17-59); African American GFR (CKD) 86 (>60 ml/min/1.73 sqM); Albumin 3.4 g/dL (3.5-5.0); Alkaline Phosphatase 73 U/L (38-126); Anion Gap 5 mmol/L; Blood Urea Nitrogen 17 mg/dL (9-20); Calcium 8.1 mg/dL (8.4-10.2); Carbon Dioxide 24 mmol/L (22-30); Chloride 100 mmol/L (98-107); Creatine Kinase <20 U/L (55-170); Glucose 98 mg/dL (74-99); Non-African American GFR(CKD) 74 (>60 ml/min/1.73 sqM); Sodium 129 mmol/L (137-145); Total Bilirubin 0.6 mg/dL (0.2-1.3); Total Protein 6.4 g/dL (6.3-8.2)
[2020-02-15 20:30] LABS: Partial Thromboplastin Time 28.9 sec (22.0-30.0); Prothrombin Time 10.7 sec (9.0-12.0)
[2020-02-15 21:05] LABS: Appearance,Urine Turbid (Clear); Bacteria,Urine Rare /hpf; Bilirubin,Urine Negative (Negative); Blood,Urine Small (Negative); Color,Urine Yellow; Glucose,Urine (UA) Negative (Negative); Ketones,Urine Negative (Negative); Leukocyte Esterase,Urine Large (Negative); Mucus,Urine Rare /hpf; Nitrite,Urine Negative (Negative); Protein,Urine 1+ (Negative); RBC,Urine 9 /hpf (0-5); Specific Gravity,Urine 1.011 (1.001-1.035); Urobilinogen,Urine <2.0 mg/dL (<2.0); WBC,Urine >182 /hpf (0-5)
[2020-02-15] MEDS ORDERED: cefTRIAXone IN SWFI 1,000 MG/10 ML SYRINGE IVP STA (21:31)
[2020-02-15] MEDS ORDERED: ACETAMINOPHEN TAB 325 MG TAB PO PRN (21:55)
[2020-02-15] MEDS ORDERED: IBUPROFEN 400 MG TAB PO PRN (21:55)
[2020-02-15] MEDS ORDERED: NALOXONE 0.4 MG/ML 1 ML VIAL IV PRN (21:55)
--- NOTE | 2020-02-15 21:59 | CT ---
EXAMINATION TYPE: CT brain wo con DATE OF EXAM: 02/15/2020 COMPARISON: 11/17/2019 And 05/20/2018 HISTORY: AMS CT DLP: 1162.4 mGycm Automated exposure control for dose reduction was used. There is hypodensity in the periventricular white matter. There is cerebral atrophy. There is some en largement of the ventricles. There is no mass effect nor midline shift. There is no sign of intracran ial hemorrhage. The calvarium is intact. There is some enlargement of the sella turcica. There is inferior displacement of the floor the sella into the sphenoid sinus. I see no significant impingement on the optic chiasm. 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 Cerebral atrophy and chronic small vessel ischemia unchanged.
[2020-02-16] MEDS: SODIUM CHLORIDE 0.9% 1,000 ML IV SCH ×2 (04:54→16:15)
[2020-02-16] MEDS ORDERED: LEVOTHYROXINE 125 MCG TAB PO SCH (06:30)
[2020-02-16 08:29] LABS: Basophils % (A) 0 %; Eosinophils # (A) 0.1 k/uL (0-0.7); Eosinophils % (A) 1 %; HCT 37.6 % (39.0-53.0); HGB 12.3 gm/dL (13.0-17.5); Lymphocytes # (A) 1.4 k/uL (1.0-4.8); Lymphocytes % (A) 16 %; MCH 32.4 pg (25.0-35.0); MCHC 32.6 g/dL (31.0-37.0); MCV 99.2 fL (80.0-100.0); Mean Platelet Volume 6.8; Monocytes # (A) 0.4 k/uL (0-1.0); Monocytes % (A) 4 %; Neutrophils # (A) 6.8 k/uL (1.3-7.7); Neutrophils % (A) 78 %; Platelet Count 140 k/uL (150-450); RBC 3.79 m/uL (4.30-5.90); RDW 13.5 % (11.5-15.5); WBC 8.8 k/uL (3.8-10.6)
[2020-02-16] MEDS: LACTOBACILLUS ACIDOPH & BULGAR 1 EACH PACKET PO SCH ×2 (08:40→21:31)
[2020-02-16] MEDS: VIT A,C & E-LUTEIN-MINERALS 1 EACH TAB PO SCH ×2 (08:40→21:31)
[2020-02-16] MEDS: HYDROCORTISONE 10 MG TAB PO SCH ×2 (08:40→15:32)
[2020-02-16 08:44] LABS: African American GFR (CKD) >90 (>60 ml/min/1.73 sqM); Anion Gap 6 mmol/L; Blood Urea Nitrogen 16 mg/dL (9-20); Carbon Dioxide 25 mmol/L (22-30); Chloride 101 mmol/L (98-107); Glucose 94 mg/dL (74-99); Non-African American GFR(CKD) 78 (>60 ml/min/1.73 sqM); Sodium 132 mmol/L (137-145)
--- NOTE | 2020-02-16 13:08 | P.HPIM ---
History of Present Illness Patient is a pleasant 84-year-old male came in with comments of altered mental status which appears to have improved still appears to be bit tired and confused although oriented 3. We'll slow in answering questions. Patient the does do self-catheterization was admitted multiple times in the past for UTI and generalized weakness patient does have generalized weakness today as well patient has a history of prostate cancer received radiation therapy upon questioning patient states he has dysuria on and off denied any increased urinary urgency or frequency. Patient is quite weak may need to be discharged to subacute rehabilitation this time. Patient had Klebsiella pneumonia which was pansensitive in the urine during his previous hospitalization patient was started on Rocephin. Infectious disease will be consulted. PT and OT will evaluate the patient. Patient doesn't have any fever or leukocytosis urine is significantly abnormal with greater than 1832 white blood cells large leukocyte esterase no nitrate Review of Systems REVIEW OF SYSTEMS: CONSTITUTIONAL: As mentioned in HPI HEENT: No recent visual problems or hearing problems. Denied any sore throat. CARDIOVASCULAR: No chest pain, orthopnea, PND, no palpitations, no syncope. PULMONARY: No shortness of breath, no cough, no hemoptysis. GASTROINTESTINAL: No diarrhea, no nausea, no vomiting, no abdominal pain. NEUROLOGICAL: No headaches, no weakness, no numbness. HEMATOLOGICAL: Denies any bleeding or petechiae. GENITOURINARY: As mentioned in HPI MUSCULOSKELETAL/RHEUMATOLOGICAL: Denies any joint pain, swelling, or any muscle pain. ENDOCRINE: Denies any polyuria or polydipsia. The rest of the 14-point review of systems is negative. Past Medical History Past Medical History: Cancer, Eye Disorder, Memory Impairment, Thyroid Disorder Additional Past Medical History / Comment(s): Prostate CA with radiation/urinary retention/self caths 4 times a day-8am,2p,8pm,2am/ occasional incontinence of urine, frequent UTIs and has confusion with UTIs, stable benign pituitary mass, hyponatremia, chronic anemia, bilateral macular degeneration, hypothyroidism, pt's feet/legs are cold all the time. History of Any Multi-Drug Resistant Organisms: Other MDRO Past Surgical History: Adenoidectomy, Tonsillectomy Additional Past Surgical History / Comment(s): EGD/colonoscopy, bilateral c ataract removals/lens implants, midline Past Anesthesia/Blood Transfusion Reactions: No Reported Reaction Past Psychological History: No Psychological Hx Reported Smoking Status: Former smoker Past Alcohol Use History: None Reported Past Drug Use History: None Reported - Past Family History Father Family Medical History: Cancer Additional Family Medical History / Comment(s): Colon CA, at 74. Mother Family Medical History: No Reported History, CVA/TIA Additional Family Medical History / Comment(s): Mother of a CVA at the age of 83yrs. Medications and Allergies Home Medications Medication Instructions Recorded Confirmed Type Vit C/E/Zn/Coppr/Lutein/Zeaxan 1 cap PO BID 03/18/18 02/15/20 History [Preservision Areds 2 Softgel] L.acidoph,Paracasei, B.lactis 1 cap PO BID 04/17/18 02/15/20 History [Probiotic] Levothyroxine Sodium [Synthroid] 125 mcg PO DAILY 02/25/19 02/15/20 History Hydrocortisone 20 mg PO QAM 10/26/19 02/15/20 History Hydrocortisone [Cortef] 10 mg PO DAILY@1400 11/17/19 02/15/20 History Acetaminophen [Tylenol] 500 mg PO Q4-6H PRN 02/15/20 02/15/20 History Ciprofloxacin HCl [Cipro] 250 mg PO DAILY@1700 02/15/20 02/15/20 History Ciprofloxacin HCl [Cipro] 500 mg PO DAILY 02/15/20 02/15/20 History Allergies Allergy/AdvReac Type Severity Reaction Status Date / Time sulfamethoxazole Allergy Rash/Hives Verified 02/15/20 22:43 [From Bactrim] trimethoprim [From Bactrim] Allergy Rash/Hives Verified 02/15/20 22:43 Physical Exam Vitals: Vital Signs Temp Pulse Pulse Resp BP BP Pulse Ox 02/16/20 07:00 99.0 F 87 18 92/46 95 02/16/20 04:00 17 02/15/20 23:31 97.7 F 56 L 16 104/59 96 02/15/20 22:13 98.1 F 65 16 131/54 96 02/15/20 21:00 99.0 F 68 16 122/63 97 02/15/20 20:10 102.6 F H 73 18 127/42 97 02/15/20 19:55 103.1 F H 72 16 162/79 97 02/15/20 19:40 103.1 F H 71 18 166/66 97 02/15/20 19:25 102.9 F H 76 18 154/102 94 L 02/15/20 19:10 101.3 F H 79 18 152/102 96 Intake and Output 02/15/20 02/16/20 02/16/20 22:59 06:59 14:59 Output Total 100 375 450 Balance -100 -375 -450 Output: Urine 100 375 450 Straight 100 375 450 Other: Voiding Method Self-Catheterization Weight 91.354 kg 91.354 kg PHYSICAL EXAMINATION: GENERAL: The patient is alert and oriented x3, still appears to be slow confused than his usual. It appears to be tired and weak. Does appear generally pale HEENT: Pupils are round and equally reacting to light. EOMI. No scleral icterus. No conjunctival pallor. Normocephalic, atraumatic. No pharyngeal erythema. No thyromegaly. CARDIOVASCULAR: S1 and S2 present. No murmurs, rubs, or gallops. PULMONARY: Chest is clear to auscultation, no wheezing or crackles. ABDOMEN: Soft, nontender, nondistended, normoactive bowel sounds. No palpable organomegaly. MUSCULOSKELETAL: No joint swelling or deformity. EXTREMITIES: No cyanosis, clubbing, or pedal edema. NEUROLOGICAL: Gross neurological examination did not reveal any focal deficits. SKIN: No rashes. Results CBC & Chem 7: 02/16/20 08:00 02/16/20 08:00 Labs: Abnormal Lab Results - Last 24 Hours (Table) 02/15/20 02/15/20 02/15/20 Range/Units 19:17 19:22 19:22 RBC 3.65 L (4.30-5.90) m/uL Hgb 12.3 L (13.0-17.5) gm/dL Hct 35.8 L (39.0-53.0) % Plt Count 137 L (150-450) k/uL Sodium 129 L (137-145) mmol/L POC Glucose (mg/dL) 119 H (75-99) mg/dL Calcium 8.1 L (8.4-10.2) mg/dL Creatine Kinase <20 L (55-170) U/L Albumin 3.4 L (3.5-5.0) g/dL TSH <0.015 L (0.465-4.680) mIU/L Urine Protein (Negative) Urine Blood (Negative) Ur Leukocyte Esterase (Negative) Urine RBC (0-5) /hpf Urine WBC (0-5) /hpf Urine WBC Clumps (None) /hpf Urine Bacteria (None) /hpf Urine Mucus (None) /hpf 02/15/20 02/16/20 02/16/20 Range/Units 20:15 08:00 08:00 RBC 3.79 L (4.30-5.90) m/uL Hgb 12.3 L (13.0-17.5) gm/dL Hct 37.6 L (39.0-53.0) % Plt Count 140 L (150-450) k/uL Sodium 132 L (137-145) mmol/L POC Glucose (mg/dL) (75-99) mg/dL Calcium 8.0 L (8.4-10.2) mg/dL Creatine Kinase (55-170) U/L Albumin (3.5-5.0) g/dL TSH (0.465-4.680) mIU/L Urine Protein 1+ H (Negative) Urine Blood Small H (Negative) Ur Leukocyte Esterase Large H (Negative) Urine RBC 9 H (0-5) /hpf Urine WBC >182 H (0-5) /hpf Urine WBC Clumps Many H (None) /hpf Urine Bacteria Rare H (None) /hpf Urine Mucus Rare H (None) /hpf Microbiology - Last 24 Hours (Table) 02/15/20 20:15 Urine Culture - Preliminary Urine,Voided Thrombosis Risk Factor Assmnt - Choose All That Apply Each Factor Represents 1 point: Obesity (BMI >25) Each Risk Factor Represents 3 Points: Age 75 years or older Thrombosis Risk Factor Assessment Total Risk Factor Score: 4 Thrombosis Risk Factor Assessment Level: Moderate Risk Assessment and Plan Plan: Possibility of urinary tract infection that cannot be ruled out ID was consulted patient will be started on Rocephin elevated will await urine cultures of the are not significant antibiotic will be discontinued patient will continue his st raight catheterization. -Possible toxic encephalopathy of metabolic encephalopathy from Misti ence phalopathy from hyponatremia -Hyponatremia hypovolemic hyponatremia improving with IV fluids -Generalized weakness can be from UTI or deconditioning patient will require placement deconditioning is secondary to muscle atrophy he is related. -History of prostate cancer with radiation therapy in the past -Hypotension due to intravascular depletion patient will continued on IV fluids -Hypothyroidism: TSH is extremely low will increase the dose of levothyroxine to 150 -DVT prophylaxis with Lovenox
[2020-02-16] MEDS: FAMOTIDINE 20 MG TAB PO SCH (21:31)
--- NOTE | 2020-02-16 23:03 | P.CONS ---
History of Present Illness - Reason for Consult Consult date: 02/16/20 Fever--UTI Requesting physician: Sam Cortez - Chief Complaint Mental status changes and fever x 1 day - History of Present Illness Patient is 84-year in the past medical he significant for posterior neck with radiation this patient did have chronic urinary retention with self- catheterization and this patient also have history of recurrent urinary tract i nfection patient has been brought into the ER by EMS secondary to mental status changes and concern for an acute urinary tract infection apparently the patient has been taking Cipro in the outpatient setting however the patient noticed to be confused and running a fever. Received Tylenol at home with a temperature of 103 Fahrenheit subsequently patient has been brought into the ER on arrival to [facility] ER patient did have a fever of 101 to 103 F patient did have a normal white count in the his urine has been positive varner PCR was negative blood and urine culture has been obtained patient has been started on Rocephin 2 g daily infectious disease was consulted for further management of antibiotic therapy patient himself at this time did not recall what happened he denies having any headache no chest pain or shortness of breath no cough no nausea vomiting no abdominal pain or any diarrhea. Review of Systems Positive point has been mentioned in HPI rest of the systems are negative Past Medical History Past Medical History: Cancer, Eye Disorder, Memory Impairment, Thyroid Disorder Additional Past Medical History / Comment(s): Prostate CA with radiation/urinary retention/self caths 4 times a day-8am,2p,8pm,2am/ occasional incontinence of urine, frequent UTIs and has confusion with UTIs, stable benign pituitary mass, hyponatremia, chronic anemia, bilateral macular degeneration, hypothyroidism, pt's feet/legs are cold all the time. History of Any Multi-Drug Resistant Organisms: Other MDRO Past Surgical History: Adenoidectomy, Tonsillectomy Additional Past Surgical History / Comment(s): EGD/colonoscopy, bilateral cataract removals/lens implants, midline Past Anesthesia/Blood Transfusion Reactions: No Reported Reaction Past Psychological History: No Psychological Hx Reported Smoking Status: Former smoker Past Alcohol Use History: None Reported Past Drug Use History: None Reported - Past Family History Father Family Medical History: Cancer Additional Family Medical History / Comment(s): Colon CA, at 74. Mother Family Medical History: No Reported History, CVA/TIA Additional Family Medical History / Comment(s): Mother of a CVA at the age of 83yrs. Medications and Allergies Home Medications Medication Instructions Recorded Confirmed Type Vit C/E/Zn/Coppr/Lutein/Zeaxan 1 cap PO BID 03/18/18 02/15/20 History [Preservision Areds 2 Softgel] L.acidoph,Paracasei, B.lactis 1 cap PO BID 04/17/18 02/15/20 History [Probiotic] Levothyroxine Sodium [Synthroid] 125 mcg PO DAILY 02/25/19 02/15/20 History Hydrocortisone 20 mg PO QAM 10/26/19 02/15/20 History Hydrocortisone [Cortef] 10 mg PO DAILY@1400 11/17/19 02/15/20 History Acetaminophen [Tylenol] 500 mg PO Q4-6H PRN 02/15/20 02/15/20 History Ciprofloxacin HCl [Cipro] 250 mg PO DAILY@1700 02/15/20 02/15/20 History Ciprofloxacin HCl [Cipro] 500 mg PO DAILY 02/15/20 02/15/20 History Allergies Allergy/AdvReac Type Severity Reaction Status Date / Time sulfamethoxazole Allergy Rash/Hives Verified 02/15/20 22:43 [From Bactrim] trimethoprim [From Bactrim] Allergy Rash/Hives Verified 02/15/20 22:43 Physical Exam Vitals: Vital Signs Temp Pulse Resp BP Pulse Ox 02/16/20 21:15 98.5 F 79 16 170/84 96 02/16/20 15:00 98.7 F 77 19 100/59 95 02/16/20 07:00 99.0 F 87 18 92/46 95 02/16/20 04:00 17 02/15/20 23:31 97.7 F 56 L 16 104/59 96 Intake and Output 02/16/20 02/16/20 02/17/20 14:59 22:59 06:59 Intake Total 50 25 Output Total 825 452 Balance -175 -005 Intake: Intake, IV Titration 50 Amount cefTRIAXone 2 gm In 50 Sodium Chloride 0.9% 50 ml @ 100 mls/hr IVPB Q24H [facility] Rx#:[id number] Oral 25 Output: Urine 825 450 Straight 450 450 Stool 2 Other: Voiding Method Self-Catheterization # Bowel Movements 1 GENERAL DESCRIPTION: Elderly male lying in bed, no distress. No tachypnea or accessory muscle of respiration use. HEENT: Shows Pallor , no scleral icterus. Oral mucous membrane is dry. NECK: Trachea central, no thyromegaly. LUNGS: Unlabored breathing. Clear to auscultation anteriorly. No wheeze or crackle. HEART: S1, S2, regular rate and rhythm. ABDOMEN: Soft, no tenderness , guarding or rigidity EXTREMITIES: No edema of feet. SKIN: No rash, no masses palpable. NEUROLOGICAL: The patient is awake, alert, oriented x2, mood and affect normal. Results CBC & Chem 7: 02/16/20 08:00 02/16/20 08:00 Labs: Abnormal Lab Results - Last 24 Hours (Table) 02/16/20 02/16/20 Range/Units 08:00 08:00 RBC 3.79 L (4.30-5.90) m/uL Hgb 12.3 L (13.0-17.5) gm/dL Hct 37.6 L (39.0-53.0) % Plt Count 140 L (150-450) k/uL Sodium 132 L (137-145) mmol/L Calcium 8.0 L (8.4-10.2) mg/dL Microbiology - Last 24 Hours (Table) 02/15/20 19:22 Blood Culture - Preliminary Blood No Growth after 24 hours 02/15/20 20:15 Urine Culture - Preliminary Urine,Voided Assessment and Plan Assessment: patient presented to the hospital with fever and mental status changes in this patient who did have a history of urinary outflow obstruction requiring self-catheterization with concern likely for a urinary tract infection likely from to the gram-negative pathogen is apparent currently no other obvious focus of infection (1) Urinary tract infection Current Visit: Yes Status: Acute Code(s): N39.0 - URINARY TRACT INFECTION, SITE NOT SPECIFIED SNOMED Code(s): 19180289 Plan: 1-Rocephin 2 g IV to continue 2-gentle IV fluid We will follow on clinical condition and cultures to further adjust medication if needed Thank you for this consultation we will follow the patient along with you Time with Patient: Greater than 30
[2020-02-17] MEDS: SODIUM CHLORIDE 0.9% 1,000 ML IV SCH ×2 (03:52→19:06)
[2020-02-17] MEDS: LEVOTHYROXINE 125 MCG TAB PO SCH (05:26)
[2020-02-17] MEDS: ENOXAPARIN 40 MG/0.4 ML SYRINGE SQ SCH (08:34)
[2020-02-17] MEDS: VIT A,C & E-LUTEIN-MINERALS 1 EACH TAB PO SCH ×2 (08:34→22:33)
[2020-02-17] MEDS: HYDROCORTISONE 10 MG TAB PO SCH ×2 (08:34→14:58)
[2020-02-17] MEDS: LACTOBACILLUS ACIDOPH & BULGAR 1 EACH PACKET PO SCH ×2 (08:35→22:33)
[2020-02-17] MEDS: FAMOTIDINE 20 MG TAB PO SCH ×2 (08:35→22:33)
[2020-02-17 09:23] LABS: Potassium 4.2 mmol/L (3.5-5.1)
--- NOTE | 2020-02-17 13:10 | PN ---
PROGRESS NOTE DATE OF SERVICE: 02/17/2020 REASON FOR FOLLOWUP: Urinary tract infection. INTERVAL HISTORY: The patient is currently afebrile, patient is breathing comfortably, the patient denies having any chest pain. No shortness of breath or cough. No nausea, vomiting, abdominal pain, no diarrhea. PHYSICAL EXAMINATION: Blood pressure 134/76, pulse of 73, temperature 98.5. General description is an elderly male, lying up in the chair, in no distress. RESPIRATORY SYSTEM: Unlabored breathing, clear to auscultation anteriorly. HEART S1, S2. Regular rate and rhythm. ABDOMEN: Soft, no tenderness. LABS: Creatinine 0.96. Blood culture so far negative. Urine is so far pending. DIAGNOSTIC IMPRESSION AND PLAN: Patient admitted to the hospital with fever and mental status changes. Source is likely urinary in this patient who did have urinary obstruction, with catheterization satisfactory, clinically responded to Rocephin to continue while waiting for the culture to finalize. Continue supportive care. MMODL / IJN: [id number] /
--- NOTE | 2020-02-17 13:39 | P.PN ---
Subjective Progress Note Date: 02/17/20 Principal diagnosis: Patient is a pleasant 84-year-old male came in with comments of altered mental status which appears to have improved still appears to be bit tired and confused although oriented 3. We'll slow in answering questions. Patient the does do self-catheterization was admitted multiple times in the past for UTI and generalized weakness patient does have generalized weakness today as well patient has a history of prostate cancer received radiation therapy upon questioning patient states he has dysuria on and off denied any increased urinary urgency or frequency. Patient is quite weak may need to be discharged to subacute rehabilitation this time. Patient had Klebsiella pneumonia which was pansensitive in the urine during his previous hospitalization patient was started on Rocephin. Infectious disease will be consulted. PT and OT will evaluate the patient. Patient doesn't have any fever or leukocytosis urine is significantly abnormal with greater than 1832 white blood cells large leukocyte esterase no nitrate 02/17/2020 Patient is seen and evaluated and follow-up currently sitting up in the chair lethargic although easily arousable. Patient is alert and oriented 3 and responding appropriately to questions and commands. Urine cultures showing less than 10,000 of apparent skin and/or genital deborah. Patient remains on IV ceftriaxone and will continue at this time. Patient's mentation is slightly improved although continues to be quite weak and lethargic. Patient denies any chest pain, shortness of breath, or palpitations. Patient is afebrile. No reports of nausea or vomiting and patient is tolerating diet. Patient continues to eat very little at each meal. Patient states that he does not have much of an appetite for the food here. Case management and social work following for ECF placement for continued PT/OT therapy. Objective - Vital Signs Vital signs: Vital Signs Temp 98.5 F 02/17/20 07:00 Pulse 66 02/17/20 07:00 Resp 16 02/17/20 07:00 BP 124/76 02/17/20 07:00 Pulse Ox 97 02/17/20 07:00 Intake & Output 02/16/20 02/17/20 02/17/20 18:59 06:59 18:59 Intake Total 50 25 Output Total 826 651 Balance -462 -623 Intake: Intake, IV Titration 50 Amount cefTRIAXone 2 gm In 50 Sodium Chloride 0.9% 50 ml @ 100 mls/hr IVPB Q24H [facility] Rx#:[id number] Oral 25 Output: Urine 825 650 Straight 450 450 Stool 1 1 Other: Voiding Method Self-Catheterization Self-Catheterization # Voids 1 # Bowel Movements 1 - Exam GENERAL: The patient is alert and oriented x3, still appears to be slow, as co nfused today. Patient continues to be lethargic and weak. Does appear generally pale HEENT: Pupils are round and equally reacting to light. EOMI. No scleral icterus. No conjunctival pallor. Normocephalic, atraumatic. No pharyngeal erythema. No thyromegaly. CARDIOVASCULAR: S1 and S2 present. No murmurs, rubs, or gallops. PULMONARY: Chest is clear to auscultation, no wheezing or crackles. ABDOMEN: Soft, nontender, nondistended, normoactive bowel sounds. No palpable organomegaly. MUSCULOSKELETAL: No joint swelling or deformity. EXTREMITIES: No cyanosis, clubbing, or pedal edema. NEUROLOGICAL: Gross neurological examination did not reveal any focal deficits. SKIN: No rashes. - Labs CBC & Chem 7: 02/16/20 08:00 02/17/20 07:08 Labs: Abnormal Lab Results - Last 24 Hours (Table) 02/17/20 Range/Units 07:08 Sodium 133 L (137-145) mmol/L Calcium 8.0 L (8.4-10.2) mg/dL Microbiology - Last 24 Hours (Table) 02/15/20 20:15 Urine Culture - Final Urine,Voided 02/15/20 19:22 Blood Culture - Preliminary Blood No Growth after 24 hours Assessment and Plan Assessment: -Possibility of urinary tract infection that cannot be ruled out. Patient continues to straight cath as per usual. Patient remains on IV ceftriaxone while awaiting for urine cultures to finalized. Urine cultures thus far showing less than 10,000 apparent skin or genital deborah. Infectious disease is following. -Possible toxic encephalopathy of metabolic encephalopathy from [facility] encephalopathy from hyponatremia, sodium slightly improved at 133 -Hyponatremia hypovolemic hyponatremia improving with IV fluids -Generalized weakness can be from UTI or deconditioning patient will require placement deconditioning is secondary to muscle atrophy -History of prostate cancer with radiation therapy in the past -Hypotension due to intravascular depletion, improved -Hypothyroidism: TSH is extremely low will increase the dose of levothyroxine to 150 -DVT prophylaxis with Lovenox Plan: Continue working with PT/OT. Await urine culture finalization. Infectious disease is following. Patient to continue on IV ceftriaxone at this time. Case management and social work following for placement at [facility] for continued PT/OT therapy. Further recommendations to follow. Possible discharge in 24 hours.
[2020-02-18] MEDS: SODIUM CHLORIDE 0.9% 1,000 ML IV SCH (02:37)
[2020-02-18] MEDS: LEVOTHYROXINE 125 MCG TAB PO SCH (05:46)
[2020-02-18 08:09] VITALS: BP 173/80; PULSE 16; RESP 15; TEMP 97.5
[2020-02-18] MEDS: VIT A,C & E-LUTEIN-MINERALS 1 EACH TAB PO SCH (09:43)
[2020-02-18] MEDS: HYDROCORTISONE 10 MG TAB PO SCH (09:43)
[2020-02-18] MEDS: ENOXAPARIN 40 MG/0.4 ML SYRINGE SQ SCH (09:43)
[2020-02-18] MEDS: LACTOBACILLUS ACIDOPH & BULGAR 1 EACH PACKET PO SCH (09:43)
[2020-02-18] MEDS: FAMOTIDINE 20 MG TAB PO SCH (09:43)
[2020-02-18 09:44] LABS: African American GFR (CKD) >90 (>60 ml/min/1.73 sqM); Anion Gap 9 mmol/L; Blood Urea Nitrogen 15 mg/dL (9-20); Calcium 8.6 mg/dL (8.4-10.2); Carbon Dioxide 25 mmol/L (22-30); Chloride 100 mmol/L (98-107); Glucose 102 mg/dL (74-99); Non-African American GFR(CKD) 79 (>60 ml/min/1.73 sqM); Potassium 3.5 mmol/L (3.5-5.1); Sodium 134 mmol/L (137-145)
--- NOTE | 2020-02-18 12:21 | P.DS ---
Providers Date of admission: 02/15/20 21:56 Expected date of discharge: 02/18/20 Attending physician: Atif Eisenberg Consults: 02/16/20 11:10 Consult Physician Routine Consulting Provider: Carolina Fitzpatrick Consult Reason/Comments: leg redness and swelling Do you want consulting provider notified?: Yes Primary care physician: Vanessa Oneill Hospital Course: Final diagnosis -Possibility of urinary tract infection that cannot be ruled out -Possible toxic encephalopathy of metabolic encephalopathy from Misti encephalopathy from hyponatremia -Hyponatremia hypovolemic hyponatremia -Generalized weakness can be from UTI or deconditioning secondary to muscle atrophy -History of prostate cancer with radiation therapy in the past -Hypotension due to intravascular depletion, improved -Hypothyroidism -DVT prophylaxis Discharge disposition Patient is being discharged in a stable condition with guarded prognosis to [facility] for continued PT/OT therapy. Patient will follow-up with Dr. Oneill upon discharge. Patient will continue on a short course of oral antibiotics in the form of Ceftin 500 mg twice daily for the next 1 week and then may discontinue. Total time taken is 35 minutes. History of present illness This is a 84-year-old male who was recently admitted with altered mental status and confusion and is being closely monitored. Patient has had multiple admissions in the past for UTI along with generalized weakness and had continued to refuse rehab once discharged although patient's family feels they are unable to care for him at home and would benefit from a subacute rehab for continued PT/OT therapy. Patient was seen and evaluated by infectious disease as patient has had a past history of Klebsiella pneumonia found in the urine. Urine cultur e during this admission shows no growth with less than 10,000 apparent skin or genital deborah noted. Given patient's history of frequent UTIs patient will continue on oral Ceftin 500 mg twice daily for the next 1 week and then may discontinue. Patient does straight cath and will continue to do so in the outpatient setting. Patient is going to [facility] for continued PT/OT therapy today. Currently no reports of chest pain, shortness of breath, or palpitations. Patient is afebrile. No reports of nausea or vomiting and patient is tolerating diet. Patient will be transferred to [facility] today. On exam vital signs are stable. Temp is 97.5F, pulse is 54, respirations are 15, blood pressure is 173/80, oxygen saturation is 98% on room air. Cardio S1, S2 are present. Respiratory system shows diminished breath sounds at the bases otherwise clear to auscultation. Abdomen is soft and nontender. Nervous system shows mild diffuse weakness. Please refer to medication reconciliation sheet for a list of medications Patient Condition at Discharge: Stable Plan - Discharge Summary Discharge Rx Participant: No New Discharge Prescriptions: New Cefuroxime Axetil [Ceftin] 500 mg PO BID 7 Days #14 tab Famotidine [Pepcid] 20 mg PO BID tab Continue Vit C/E/Zn/Coppr/Lutein/Zeaxan [Preservision Areds 2 Softgel] 1 cap PO BID L.acidoph,Paracasei, B.lactis [Probiotic] 1 cap PO BID Levothyroxine Sodium [Synthroid] 125 mcg PO DAILY Hydrocortisone 20 mg PO QAM Hydrocortisone [Cortef] 10 mg PO DAILY@1400 Acetaminophen [Tylenol] 500 mg PO Q4-6H PRN PRN Reason: Pain Discontinued Ciprofloxacin HCl [Cipro] 250 mg PO DAILY@1700 Ciprofloxacin HCl [Cipro] 500 mg PO DAILY Discharge Medication List Vit C/E/Zn/Coppr/Lutein/Zeaxan [Preservision Areds 2 Softgel] 1 cap PO BID 03/18/18 [History] L.acidoph,Paracasei, B.lactis [Probiotic] 1 cap PO BID 04/17/18 [History] Levothyroxine Sodium [Synthroid] 125 mcg PO DAILY 02/25/19 [History] Hydrocortisone 20 mg PO QAM 10/26/19 [History] Hydrocortisone [Cortef] 10 mg PO DAILY@1400 11/17/19 [History] Acetaminophen [Tylenol] 500 mg PO Q4-6H PRN 02/15/20 [History] Cefuroxime Axetil [Ceftin] 500 mg PO BID 7 Days #14 tab 02/18/20 [Rx] Famotidine [Pepcid] 20 mg PO BID tab 02/18/20 [Rx] Follow up Appointment(s)/Referral(s): Vanessa Oneill MD [Primary Care Provider] - 1-2 days Activity/Diet/Wound Care/Special Instructions: Patient is going to [facility] [employer] Activity as tolerated Continue with antibiotics for 7 days then may discontinue Continue current heart healthy diet Continue working with physical therapy Patient is continue straight cath Discharge Disposition: TRANSFER TO SNF/ECF
--- NOTE | 2020-02-18 12:32 | PN ---
PROGRESS NOTE DATE OF SERVICE: 02/18/2020 REASON FOR FOLLOWUP: Urinary tract infection. INTERVAL HISTORY: The patient is currently afebrile, has been breathing comfortably. The patient denies having any chest pain. No shortness of breath or cough. No abdominal pain. Has been complaining of feeling dizzy when he stands up. PHYSICAL EXAMINATION: Blood pressure is 173/80 with a pulse of 54, temperature 97.5. He is 98% on room air. General description is an elderly male up in the chair in no distress. RESPIRATORY SYSTEM: Unlabored breathing, clear to auscultation anteriorly. HEART: S1, S2. Regular rate and rhythm. ABDOMEN: Soft, no tenderness. LABS: BUN of 15, creatinine 0.84. Blood culture negative, urine with normal deborah. DIAGNOSTIC IMPRESSION AND PLAN: Patient admitted to the hospital with fever and mental status changes. Concern likely for a urinary tract infection, likely from enteric gram-negative pathogen. Plan is to finish therapy with oral Ceftin 500 mg twice a day for 7 days. Discussed with the nurse practitioner for admitting team. JOEL / SHRAVANN: [id number] /
--- NOTE | 2020-02-19 09:04 | CDI ---
Documentation Clarification Form Date: 02/19/20 From: Ángela Hutson Phone: If you have a question about this query, please contact Cecelia Mckeon, [employer] at [phone] between 8am and 5pm. Admit Date: 02/15/20 Discharge Date:02/18/20 Patient Name: China Foreman Visit Number: [id number] ATTENTION: The Clinical Documentation Specialists (CDI) and [facility] Coding Staff appreciate your assistance in clarifying documentation. Please respond to the clarification below the line at the bottom and electronically sign. The CDI & [facility] Coding staff will review the response and follow-up if needed. Please note: Queries are made part of the Legal Health Record. If you have any questions, please contact the author of this message via ITS. Dear Dr. Cortez Possibility of UTI that can't be ruled out was documented in the discharge summary and H&P History/Risk Factors: Patient self caths 4 times a day, history of UTI, history of prostate cancer Clinical Indicators: altered mental status, fever Vital Signs: T. 101.3, P. 79, R. 18, BP 152/102 WBC: 9.6 Urinalysis: Blood small, leukocyte esterase large, RBC 9 WBC >182, bacteria rare, mucus rare Urine Culture: <10,000 CFU/mL apparent skin and/or genital deborah Treatment: Antibiotics: IV Rocephin Please document the condition that these clinical indicators signify, whether Present on Admission, and cause if known: UTI -If due to catheter, device or implant, please document -Specify organism, if known -Identify location of infection (if known) Bladder, Kidney, Urethra Contaminated specimen Other, please specify Unable to determine Unable to determine MTDD
== END 2020-02-18 14:14 | DRG 690 ==
LOC: EC 19:08 → 4SSUR 21:56
PROVIDERS: ADMIT Internal Medicine; ATTEND Internal Medicine
DX: N39.0 Urinary tract infection, site not specified (principal); E87.1 Hypo-osmolality and hyponatremia; G93.49 Other encephalopathy; I95.89 Other hypotension; N13.9 Obstructive and reflux uropathy, unspecified; E86.1 Hypovolemia; E86.0 Dehydration; E03.9 Hypothyroidism, unspecified; D64.9 Anemia, unspecified; H35.30 Unspecified macular degeneration; R33.9 Retention of urine, unspecified; M62.50 Muscle wasting and atrophy, not elsewhere classified, unspecified site; Z11.59 Encounter for screening for other viral diseases; E23.7 Disorder of pituitary gland, unspecified; B96.89 Other specified bacterial agents as the cause of diseases classified elsewhere; Z79.890 Hormone replacement therapy; Z79.899 Other long term (current) drug therapy; Z88.1 Allergy status to other antibiotic agents; Z88.2 Allergy status to sulfonamides; Z92.3 Personal history of irradiation; Z87.891 Personal history of nicotine dependence; Z87.440 Personal history of urinary (tract) infections; Z85.46 Personal history of malignant neoplasm of prostate; Z96.1 Presence of intraocular lens; Z98.42 Cataract extraction status, left eye; Z98.41 Cataract extraction status, right eye; Z80.0 Family history of malignant neoplasm of digestive organs; Z82.3 Family history of stroke
CPT/HCPCS: 36415; 70450; 80048; 80053; 81001; 82550; 83605; 84439; 84443; 84484; 85025; 85610; 85730; 87040; 87086; 93005; 96361; 96374; 99285

== ENCOUNTER 2020-02-29 21:40 | Inpatient (IN) | payer MEDICARE, BC ==
[2020-02-29 23:10] LABS: Basophils # (A) 0.1 k/uL (0-0.2); Basophils % (A) 0 %; Eosinophils # (A) 0.2 k/uL (0-0.7); Eosinophils % (A) 1 %; HCT 41.1 % (39.0-53.0); HGB 13.4 gm/dL (13.0-17.5); Lymphocytes # (A) 1.1 k/uL (1.0-4.8); Lymphocytes % (A) 5 %; MCHC 32.5 g/dL (31.0-37.0); MCV 98.5 fL (80.0-100.0); Monocytes # (A) 0.7 k/uL (0-1.0); Monocytes % (A) 3 %; Neutrophils # (A) 22.7 k/uL (1.3-7.7); Neutrophils % (A) 91 %; Platelet Count 253 k/uL (150-450); RBC 4.17 m/uL (4.30-5.90); RDW 13.5 % (11.5-15.5); WBC 24.9 k/uL (3.8-10.6)
[2020-02-29 23:28] LABS: ALT 28 U/L (4-49); AST 117 U/L (17-59); Acetaminophen <10.0 ug/mL; African American GFR (CKD) 19 (>60 ml/min/1.73 sqM); Albumin 3.8 g/dL (3.5-5.0); Alkaline Phosphatase 72 U/L (38-126); Anion Gap 16 mmol/L; Blood Urea Nitrogen 32 mg/dL (9-20); Calcium 8.7 mg/dL (8.4-10.2); Carbon Dioxide 24 mmol/L (22-30); Chloride 96 mmol/L (98-107); Glucose 89 mg/dL (74-99); Non-African American GFR(CKD) 16 (>60 ml/min/1.73 sqM); Potassium 4.9 mmol/L (3.5-5.1); Salicylate <1.0 mg/dL; Sodium 136 mmol/L (137-145); Total Bilirubin 0.6 mg/dL (0.2-1.3); Total Protein 6.8 g/dL (6.3-8.2)
--- NOTE | 2020-02-29 23:34 | CT ---
EXAMINATION TYPE: CT brain wo con DATE OF EXAM: 02/29/2020 COMPARISON: 02/15/2020 HISTORY: ams CT DLP: 1186.4 mGycm Automated exposure control for dose reduction was used. There is patchy hypodensity in the periventricular white matter. There is no mass effect nor midline shift. There is no sign of intracranial hemorrhage. There is some enlargement of the ventricles. Ther e is diffuse cerebral atrophy. Calvarium appears intact. Skull base is intact. There is some enlargement of the sella turcica. IMPRESSION: Cerebral atrophy and chronic small vessel ischemia. No acute intracranial abnormality. Sellar mass un changed. Brain unchanged.
--- NOTE | 2020-02-29 23:37 | XR ---
EXAMINATION TYPE: XR chest 1V DATE OF EXAM: 02/29/2020 COMPARISON: 01/19/2020 HISTORY: Weakness There is no heart failure nor confluent pneumonic infiltrate. Costophrenic angles are fairly clear. There are chest leads. There are no hilar masses. IMPRESSION: No active cardiopulmonary disease. No change.
[2020-02-29 23:46] LABS: INR 1.3 (<1.2); Partial Thromboplastin Time 24.7 sec (22.0-30.0); Prothrombin Time 12.7 sec (9.0-12.0)
[2020-02-29 23:52] LABS: Creatine Kinase 2185 U/L (55-170)
[2020-03-01] MEDS ORDERED: SODIUM CHLORIDE 0.9% 2,000 ML IV ONE (00:11)
[2020-03-01] MEDS ORDERED: cefTRIAXone IN SWFI 1,000 MG/10 ML SYRINGE IVP STA (00:12)
[2020-03-01] MEDS ORDERED: NALOXONE 0.4 MG/ML 1 ML VIAL IV PRN (00:17)
--- NOTE | 2020-03-01 00:17 | ED ---
Altered Mental Status HPI - General Chief Complaint: Altered Mental Status Stated Complaint: Altered Mental Status Time Seen by Provider: 02/29/20 21:45 Source: RN/MD, EMS Mode of arrival: EMS - History of Present Illness Initial Comments: Patient is an 84-year-old male who presents from [facility] for altered mental status. Normally the patient is a and O 3. ECF facility states the patient start having some mental status changes yesterday. He became more confused. He is straight cathed every 6 hours and has recurrent urinary tract infections therefore they are concerned for sepsis. Patient cannot provide any history upon presentation. He denies any pain. No known trauma. HPI is limited patient which was just recently hospitalized for similar complaint. - Related Data Home Medications Medication Instructions Recorded Confirmed Vit C/E/Zn/Coppr/Lutein/Zeaxan 1 cap PO BID 03/18/18 03/01/20 [Preservision Areds 2 Softgel] L.acidoph,Paracasei, B.lactis 1 cap PO BID 04/17/18 03/01/20 [Probiotic] Hydrocortisone 20 mg PO QAM 10/26/19 03/01/20 Hydrocortisone [Cortef] 10 mg PO DAILY@1400 11/17/19 03/01/20 Acetaminophen [Tylenol] 500 mg PO Q6H PRN 02/15/20 03/01/20 Citalopram Hydrobromide [CeleXA] 10 mg PO DAILY 03/01/20 03/01/20 Lansoprazole [Prevacid] 15 mg PO DAILY 03/01/20 03/01/20 Levothyroxine Sodium [Synthroid] 150 mcg PO DAILY 03/01/20 03/01/20 Topiramate [Topamax] 25 mg PO HS 03/01/20 03/01/20 Previous Rx's Medication Instructions Recorded Acetaminophen Tab [Tylenol] 650 mg PO Q4HR PRN tab 03/03/20 Ciprofloxacin HCl [Cipro] 500 mg PO Q12H 7 Days #14 tab 03/03/20 Heparin Sodium,Porcine [Heparin 5,000 unit SQ Q12HR vial 03/03/20 Sodium] Allergies Allergy/AdvReac Type Severity Reaction Status Date / Time sulfamethoxazole Allergy Rash/Hives Verified 02/15/20 22:43 [From Bactrim] trimethoprim [From Bactrim] Allergy Rash/Hives Verified 02/15/20 22:43 Review of Systems ROS Statement: Those systems with pertinent positive or pertinent negative responses have been documented in the HPI. ROS Other: All systems not noted in ROS Statement are negative. Past Medical History Past Medical History: Cancer, Eye Disorder, Memory Impairment, Thyroid Disorder Additional Past Medical History / Comment(s): Prostate CA with radiation/urinary retention/self caths 4 times a day-8am,2p,8pm,2am/ occasional incontinence of urine, frequent UTIs and has confusion with UTIs, stable benign pituitary mass, hyponatremia, chronic anemia, bilateral macular degeneration, hypothyroidism, pt's feet/legs are cold all the time. History of Any Multi-Drug Resistant Organisms: Other MDRO Past Surgical History: Adenoidectomy, Tonsillectomy Additional Past Surgical History / Comment(s): EGD/colonoscopy, bilateral cataract removals/lens implants, midline Past Anesthesia/Blood Transfusion Reactions: No Reported Reaction Past Psychological History: No Psychological Hx Reported Smoking Status: Former smoker Past Alcohol Use History: None Reported Past Drug Use History: None Reported - Past Family History Father Family Medical History: Cancer Additional Family Medical History / Comment(s): Colon CA, at 74. Mother Family Medical History: No Reported History, CVA/TIA Additional Family Medical History / Comment(s): Mother of a CVA at the age of 83yrs. General Exam Limitations: altered mental status General appearance: lethargic Head exam: Present: atraumatic, normocephalic, normal inspection Eye exam: Present: normal appearance, PERRL, EOMI. Absent: scleral icterus, conjunctival injection, periorbital swelling ENT exam: Present: mucous membranes dry Neck exam: Present: normal inspection. Absent: tenderness, meningismus, lymphadenopathy Respiratory exam: Present: normal lung sounds bilaterally. Absent: respiratory distress, wheezes, rales, rhonchi, stridor Cardiovascular Exam: Present: regular rate, normal rhythm, normal heart sounds. Absent: systolic murmur, diastolic murmur, rubs, gallop, clicks GI/Abdominal exam: Present: soft, normal bowel sounds. Absent: distended, tenderness, guarding, rebound, rigid Back exam: Present: normal inspection Neurological exam: Present: altered, other (follows commands. Does not answer questions appropriately. ) Psychiatric exam: Present: agitated Skin exam: Present: warm, dry, intact, normal color. Absent: rash Course Vital Signs 02/29/20 03/01/20 03/01/20 21:43 00:00 01:00 Temperature 98.8 F Pulse Rate 100 90 Respiratory 16 16 18 Rate Blood Pressure 102/55 116/79 99/61 O2 Sat by Pulse 94 L 93 L Oximetry 03/01/20 03/01/20 03/01/20 02:00 03:00 04:00 Temperature Pulse Rate 92 100 Respiratory 16 16 16 Rate Blood Pressure 102/61 97/45 104/68 O2 Sat by Pulse 94 L Oximetry 03/01/20 03/01/20 03/01/20 05:00 06:00 10:00 Temperature 101.4 F H 101.1 F H Pulse Rate 98 92 86 Respiratory 16 169 H 18 Rate Blood Pressure 97/50 91/55 123/66 O2 Sat by Pulse 96 95 95 Oximetry 03/01/20 03/01/20 03/01/20 12:25 20:00 21:00 Temperature 98.0 F Pulse Rate 70 72 76 Respiratory 18 18 18 Rate Blood Pressure 117/53 123/66 O2 Sat by Pulse 98 Oximetry 03/01/20 21:53 Temperature 97.2 F L Pulse Rate 75 Respiratory 16 Rate Blood Pressure 141/72 O2 Sat by Pulse 97 Oximetry Medical Decision Making - Medical Decision Making Upon arrival patient is placed into room 18. I did attempt a thorough history. I reviewed the patient's labs. Laboratory studies were conducted. White count is elevated at 24.9. Creatinine is 3.3. CK 2000 185. Troponin 0.070. I did perform a CT of the patient's brain which demonstrates renal atrophy and chronic small vessel ischemia. Sellar mass is unchanged chest x-ray demonstrates no active cardiac disease. The patient was given a 2 L bolus of normal saline and started on Rocephin as his previous cultures were sensitive to this. Patient be admitted to EM. I did order his nighttime dose of steroids. Patient is currently awaiting bed in stable condition - Lab Data Result diagrams: 03/03/20 05:33 03/03/20 05:33 Lab Results 02/29/20 02/29/20 02/29/20 Range/Units 22:50 22:50 22:50 WBC 24.9 H (3.8-10.6) k/uL RBC 4.17 L (4.30-5.90) m/uL Hgb 13.4 (13.0-17.5) gm/dL Hct 41.1 (39.0-53.0) % MCV 98.5 (80.0-100.0) fL MCH 32.0 (25.0-35.0) pg MCHC 32.5 (31.0-37.0) g/dL RDW 13.5 (11.5-15.5) % Plt Count 253 (150-450) k/uL Neutrophils % 91 % Lymphocytes % 5 % Monocytes % 3 % Eosinophils % 1 % Basophils % 0 % Neutrophils # 22.7 H (1.3-7.7) k/uL Lymphocytes # 1.1 (1.0-4.8) k/uL Monocytes # 0.7 (0-1.0) k/uL Eosinophils # 0.2 (0-0.7) k/uL Basophils # 0.1 (0-0.2) k/uL PT 12.7 H (9.0-12.0) sec INR 1.3 H (<1.2) APTT 24.7 (22.0-30.0) sec Sodium 136 L (137-145) mmol/L Potassium 4.9 (3.5-5.1) mmol/L Chloride 96 L (98-107) mmol/L Carbon Dioxide 24 (22-30) mmol/L Anion Gap 16 mmol/L BUN 32 H (9-20) mg/dL Creatinine 3.30 H (0.66-1.25) mg/dL Est GFR (CKD-EPI)AfAm 19 (>60 ml/min/1.73 sqM) Est GFR (CKD-EPI)NonAf 16 (>60 ml/min/1.73 sqM) Glucose 89 (74-99) mg/dL Calcium 8.7 (8.4-10.2) mg/dL Total Bilirubin 0.6 (0.2-1.3) mg/dL AST 117 H (17-59) U/L ALT 28 (4-49) U/L Alkaline Phosphatase 72 (38-126) U/L Ammonia (<30) umol/L Creatine Kinase 2185 H* (55-170) U/L Troponin I (0.000-0.034) ng/mL Total Protein 6.8 (6.3-8.2) g/dL Albumin 3.8 (3.5-5.0) g/dL TSH <0.015 L (0.465-4.680) mIU/L Free T4 1.96 (0.78-2.19) ng/dL Salicylates <1.0 mg/dL Acetaminophen <10.0 ug/mL 02/29/20 02/29/20 Range/Units 22:50 22:50 WBC (3.8-10.6) k/uL RBC (4.30-5.90) m/uL Hgb (13.0-17.5) gm/dL Hct (39.0-53.0) % MCV (80.0-100.0) fL MCH (25.0-35.0) pg MCHC (31.0-37.0) g/dL RDW (11.5-15.5) % Plt Count (150-450) k/uL Neutrophils % % Lymphocytes % % Monocytes % % Eosinophils % % Basophils % % Neutrophils # (1.3-7.7) k/uL Lymphocytes # (1.0-4.8) k/uL Monocytes # (0-1.0) k/uL Eosinophils # (0-0.7) k/uL Basophils # (0-0.2) k/uL PT (9.0-12.0) sec INR (<1.2) APTT (22.0-30.0) sec Sodium (137-145) mmol/L Potassium (3.5-5.1) mmol/L Chloride (98-107) mmol/L Carbon Dioxide (22-30) mmol/L Anion Gap mmol/L BUN (9-20) mg/dL Creatinine (0.66-1.25) mg/dL Est GFR (CKD-EPI)AfAm (>60 ml/min/1.73 sqM) Est GFR (CKD-EPI)NonAf (>60 ml/min/1.73 sqM) Glucose (74-99) mg/dL Calcium (8.4-10.2) mg/dL Total Bilirubin (0.2-1.3) mg/dL AST (17-59) U/L ALT (4-49) U/L Alkaline Phosphatase (38-126) U/L Ammonia <9 (<30) umol/L Creatine Kinase (55-170) U/L Troponin I 0.070 H* (0.000-0.034) ng/mL Total Protein (6.3-8.2) g/dL Albumin (3.5-5.0) g/dL TSH (0.465-4.680) mIU/L Free T4 (0.78-2.19) ng/dL Salicylates mg/dL Acetaminophen ug/mL - EKG Data EKG Comments: EKG demonstrates a sinus tachycardia with ventricular rate of 102. NV interval 146. QRS 120. QTC of 456. Right bundle branch block. V2 through V6 has some ST depression Disposition Clinical Impression: Metabolic encephalopathy, MARTIN (acute kidney injury), Rhabdomyolysis, Dehydration, Adrenal insufficiency, Pituitary adenoma Disposition: ADMITTED IP TO THIS HOSP Condition: Serious Is patient prescribed a controlled substance at d/c from ED?: No Decision to Admit Reason: Admit from EC Decision Date: 03/01/20 Decision Time: 00:17
[2020-03-01 00:45] LABS: T4, Free (Free Thyroxine) 1.96 ng/dL (0.78-2.19)
[2020-03-01] MEDS ORDERED: HYDROCORTISONE 10 MG TAB PO ONE (02:00)
[2020-03-01] MEDS: SODIUM CHLORIDE 0.9% 1,000 ML IV SCH ×2 (03:56→13:50)
[2020-03-01 04:19] LABS: Appearance,Urine Turbid (Clear); Bacteria,Urine Few /hpf; Bilirubin,Urine Negative (Negative); Blood,Urine Large (Negative); Color,Urine Orange; Glucose,Urine (UA) Negative (Negative); Ketones,Urine Negative (Negative); Leukocyte Esterase,Urine Large (Negative); Mucus,Urine Occasional /hpf; Nitrite,Urine Negative (Negative); Protein,Urine 3+ (Negative); RBC,Urine 107 /hpf (0-5); Specific Gravity,Urine 1.019 (1.001-1.035); Squamous Epithelial Cell,Urine 6 /hpf (0-4); Urobilinogen,Urine <2.0 mg/dL (<2.0); WBC,Urine >182 /hpf (0-5)
[2020-03-01] MEDS ORDERED: ACETAMINOPHEN TAB 500 MG TAB PO STA (05:21)
[2020-03-01 06:25] LABS: Glucose,Whole Blood 92 mg/dL (75-99)
[2020-03-01 11:00] LABS: Basophils % (A) 0 %; Eosinophils # (A) 0.1 k/uL (0-0.7); Eosinophils % (A) 1 %; HCT 36.4 % (39.0-53.0); Lymphocytes # (A) 0.7 k/uL (1.0-4.8); Lymphocytes % (A) 4 %; MCH 33.5 pg (25.0-35.0); MCHC 32.8 g/dL (31.0-37.0); Macrocytosis Slight; Monocytes # (A) 0.6 k/uL (0-1.0); Monocytes % (A) 4 %; Neutrophils # (A) 14.4 k/uL (1.3-7.7); Neutrophils % (A) 91 %; Platelet Count 193 k/uL (150-450); RBC 3.57 m/uL (4.30-5.90); RDW 13.6 % (11.5-15.5); WBC 15.9 k/uL (3.8-10.6)
[2020-03-01 11:51] LABS: Calcium 7.6 mg/dL (8.4-10.2); Potassium 4.7 mmol/L (3.5-5.1)
[2020-03-01] MEDS: LEVOTHYROXINE 75 MCG TAB PO SCH (12:26)
[2020-03-01] MEDS: CITALOPRAM HYDROBROMIDE 10 MG TAB PO SCH (12:26)
--- NOTE | 2020-03-01 13:02 | P.HPIM ---
History of Present Illness This is a pleasant 84 years old male with past medical history of prostate cancer status post radiotherapy, he self cath himself 4 times a day, frequent UTI, hyponatremia, bilateral macular degeneration, hypothyroidism, memory impai rment . Patient is confused and cannot provide meaningful information, he is not oriented about the time place and person, and does not ON the hospital. However he does not look in distress and he did not complain from pain to me. History is exam looks clear and abdominal exam looks benign. This is the fifth admission to the hospital over 4 months On admission patient has fever of 101.4. Blood pressure on the low side 91/55, heart rate 92-98, saturating 95% and a sister oxygen via nasal cannula. Labs showed leukocytosis with WBC 24.9, 15.9 K, hemoglobin is 12, platelet is normal. Sodium 135, creatinine elevated at 3.2, base in-line normal creatinine 0.8-1.0. Elevated creatine kinase 2318. TSH low less than 0.015, with normal free T4, he Y is suspicious for infection EKG sinus tachycardia at [address]-T changes, chest x-ray: No acute process. CT of the brain showing cerebral atrophy with no acute changes. The emergency room patient of ceftriaxone on normal saline at 75 mL/h Review of Systems CONSTITUTIONAL: No fever, no malaise, no fatigue. HEENT: No recent visual problems or hearing problems. Denied any sore throat. CARDIOVASCULAR: No orthopnea, PND, no palpitations, no syncope. PULMONARY: No shortness of breath, no cough, no hemoptysis. GASTROINTESTINAL: No diarrhea, no nausea, no vomiting, no abdominal pain. Normo active bowel sounds. NEUROLOGICAL: No headaches, no weakness, no numbness. HEMATOLOGICAL: Denies any bleeding or petechiae. GENITOURINARY: Denies any burning micturition, frequency, or urgency. MUSCULOSKELETAL/RHEUMATOLOGICAL: Denies any joint pain, swelling, or any muscle pain. ENDOCRINE: Denies any polyuria or polydipsia. Past Medical History Past Medical History: Cancer, Eye Disorder, Memory Impairment, Thyroid Disorder Additional Past Medical History / Comment(s): Prostate CA with radiation/urinary retention/self caths 4 times a day-8am,2p,8pm,2am/ occasional incontinence of urine, frequent UTIs and has confusion with UTIs, stable benign pituitary mass, hyponatremia, chronic anemia, bilateral macular degeneration, hypothyroidism, pt's feet/legs are cold all the time. History of Any Multi-Drug Resistant Organisms: Other MDRO Past Surgical History: Adenoidectomy, Tonsillectomy Additional Past Surgical History / Comment(s): EGD/colonoscopy, bilateral cataract removals/lens implants, midline Past Anesthesia/Blood Transfusion Reactions: No Reported Reaction Past Psychological History: No Psychological Hx Reported Smoking Status: Former smoker Past Alcohol Use History: None Reported Past Drug Use History: None Reported - Past Family History Father Family Medical History: Cancer Additional Family Medical History / Comment(s): Colon CA, at 74. Mother Family Medical History: No Reported History, CVA/TIA Additional Family Medical History / Comment(s): Mother of a CVA at the age of 83yrs. Medications and Allergies Home Medications Medication Instructions Recorded Confirmed Type Vit C/E/Zn/Coppr/Lutein/Zeaxan 1 cap PO BID 03/18/18 03/01/20 History [Preservision Areds 2 Softgel] L.acidoph,Paracasei, B.lactis 1 cap PO BID 04/17/18 03/01/20 History [Probiotic] Hydrocortisone 20 mg PO QAM 10/26/19 03/01/20 History Hydrocortisone [Cortef] 10 mg PO DAILY@1400 11/17/19 03/01/20 History Acetaminophen [Tylenol] 500 mg PO Q6H PRN 02/15/20 03/01/20 History Citalopram Hydrobromide [CeleXA] 10 mg PO DAILY 03/01/20 03/01/20 History LORazepam [Ativan] 0.5 mg PO TID PRN 03/01/20 03/01/20 History Lansoprazole [Prevacid] 15 mg PO DAILY 03/01/20 03/01/20 History Levothyroxine Sodium [Synthroid] 150 mcg PO DAILY 03/01/20 03/01/20 History Topiramate [Topamax] 25 mg PO HS 03/01/20 03/01/20 History Allergies Allergy/AdvReac Type Severity Reaction Status Date / Time sulfamethoxazole Allergy Rash/Hives Verified 02/15/20 22:43 [From Bactrim] trimethoprim [From Bactrim] Allergy Rash/Hives Verified 02/15/20 22:43 Physical Exam Vitals: Vital Signs Temp Pulse Resp BP Pulse Ox 03/01/20 12:25 98.0 F 70 18 98 03/01/20 06:00 101.1 F H 92 169 H 91/55 95 03/01/20 05:00 101.4 F H 98 16 97/50 96 03/01/20 04:00 104/68 03/01/20 03:00 100 16 97/45 03/01/20 02:00 92 16 102/61 94 L 03/01/20 01:00 18 99/61 03/01/20 00:00 90 16 116/79 93 L 02/29/20 21:43 98.8 F 100 16 102/55 94 L Intake and Output 02/29/20 03/01/20 03/01/20 22:59 06:59 14:59 Output Total 30 Balance -30 Output: Urine 30 Straight 30 Post Void Residual 0 Other: Weight 87.09 kg -GENERAL: The patient is alert , confused, disoriented to time place and person, not in any acute distress. Well developed, well nourished. HEENT: Pupils are round and equally reacting to light. EOMI. No scleral icterus. No conjunctival pallor. Normocephalic, atraumatic. No pharyngeal erythema. No thyromegaly. CARDIOVASCULAR: S1 and S2 present. No murmurs, rubs, or gallops. PULMONARY: Chest is clear to auscultation, no wheezing or crackles. -ABDOMEN: Soft, nontender, nondistended, normoactive bowel sounds. No palpable organomegaly. Black catheter is in a Place MUSCULOSKELETAL: No joint swelling or deformity. EXTREMITIES: No cyanosis, clubbing, or pedal edema. NEUROLOGICAL: Gross neurological examination did not reveal any focal deficits. SKIN: No rashes. No petechiae Results CBC & Chem 7: 03/01/20 10:11 03/01/20 11:10 Labs: Abnormal Lab Results - Last 24 Hours (Table) 02/29/20 02/29/20 02/29/20 Range/Units 22:50 22:50 22:50 WBC 24.9 H (3.8-10.6) k/uL RBC 4.17 L (4.30-5.90) m/uL Hgb (13.0-17.5) gm/dL Hct (39.0-53.0) % MCV (80.0-100.0) fL Neutrophils # 22.7 H (1.3-7.7) k/uL Lymphocytes # (1.0-4.8) k/uL PT 12.7 H (9.0-12.0) sec INR 1.3 H (<1.2) Sodium 136 L (137-145) mmol/L Chloride 96 L (98-107) mmol/L BUN 32 H (9-20) mg/dL Creatinine 3.30 H (0.66-1.25) mg/dL Glucose (74-99) mg/dL Calcium (8.4-10.2) mg/dL AST 117 H (17-59) U/L Creatine Kinase 2185 H* (55-170) U/L Troponin I (0.000-0.034) ng/mL TSH <0.015 L (0.465-4.680) mIU/L Urine Protein (Negative) Urine Blood (Negative) Ur Leukocyte Esterase (Negative) Urine RBC (0-5) /hpf Urine WBC (0-5) /hpf Urine WBC Clumps (None) /hpf Ur Squamous Epith Cells (0-4) /hpf Urine Bacteria (None) /hpf Urine Mucus (None) /hpf 02/29/20 03/01/20 03/01/20 Range/Units 22:50 03:57 10:11 WBC 15.9 H (3.8-10.6) k/uL RBC 3.57 L (4.30-5.90) m/uL Hgb 12.0 L (13.0-17.5) gm/dL Hct 36.4 L (39.0-53.0) % MCV 102.0 H (80.0-100.0) fL Neutrophils # 14.4 H (1.3-7.7) k/uL Lymphocytes # 0.7 L (1.0-4.8) k/uL PT (9.0-12.0) sec INR (<1.2) Sodium (137-145) mmol/L Chloride (98-107) mmol/L BUN (9-20) mg/dL Creatinine (0.66-1.25) mg/dL Glucose (74-99) mg/dL Calcium (8.4-10.2) mg/dL AST (17-59) U/L Creatine Kinase (55-170) U/L Troponin I 0.070 H* (0.000-0.034) ng/mL TSH (0.465-4.680) mIU/L Urine Protein 3+ H (Negative) Urine Blood Large H (Negative) Ur Leukocyte Esterase Large H (Negative) Urine RBC 107 H (0-5) /hpf Urine WBC >182 H (0-5) /hpf Urine WBC Clumps Many H (None) /hpf Ur Squamous Epith Cells 6 H (0-4) /hpf Urine Bacteria Few H (None) /hpf Urine Mucus Occasional H (None) /hpf 03/01/20 Range/Units 11:10 WBC (3.8-10.6) k/uL RBC (4.30-5.90) m/uL Hgb (13.0-17.5) gm/dL Hct (39.0-53.0) % MCV (80.0-100.0) fL Neutrophils # (1.3-7.7) k/uL Lymphocytes # (1.0-4.8) k/uL PT (9.0-12.0) sec INR (<1.2) Sodium 135 L (137-145) mmol/L Chloride (98-107) mmol/L BUN 35 H (9-20) mg/dL Creatinine 3.23 H (0.66-1.25) mg/dL Glucose 100 H (74-99) mg/dL Calcium 7.6 L (8.4-10.2) mg/dL AST (17-59) U/L Creatine Kinase 2318 H* (55-170) U/L Troponin I (0.000-0.034) ng/mL TSH (0.465-4.680) mIU/L Urine Protein (Negative) Urine Blood (Negative) Ur Leukocyte Esterase (Negative) Urine RBC (0-5) /hpf Urine WBC (0-5) /hpf Urine WBC Clumps (None) /hpf Ur Squamous Epith Cells (0-4) /hpf Urine Bacteria (None) /hpf Urine Mucus (None) /hpf Microbiology - Last 24 Hours (Table) 03/01/20 03:57 Urine Culture - Preliminary Urine,Voided Assessment and Plan Assessment: Acute urinary tract infection Sepsis with positive SIRS criteria with leukocytosis and fever and tachycardia. Acute kidney injury metabolic encephalopathy secondary to above Prostate cancer status post radiotherapy, self-catheterization with frequent UTI History of hyponatremia Bilateral macular degeneration Hypothyroidism: Memory impairment Plan: this is a pleasant 84 years old male who presents with UTI, tolerating encephalopathy. Continue with Rocephin. Check renal ultrasound. Follow-up urine culture and blood culture. Covid test is pending. Consult infectious disease Labs and medication were reviewed.. Continue same treatment. Continue with symptomatic treatment. Resume home medication. Monitor lytes and vitals. DVT and GI prophylaxis. Further recommendations of the clinical course of the patient DVT prophylaxis: Subcutaneous heparin GI Prophylaxis: Pepcid PT/OT: Pending Prognosis is guarded
--- NOTE | 2020-03-01 14:10 | US ---
EXAMINATION TYPE: US renals and bladder DATE OF EXAM: 03/01/2020 COMPARISON: US 03/19/2019 CLINICAL HISTORY: uti ,cristin. EXAM MEASUREMENTS: Right Kidney: 10.2 x 5.6 x 4.9 cm Left Kidney: 10.1 x 5.7 x 4.4 cm Right Kidney: No hydronephrosis or masses seen Left Kidney: No hydronephrosis. Prominent hypoechoic areas visualized upper pole measuring 2.4cm, nod ular contour vs other Bladder: Not distended, pt has salgado There is no evidence for hydronephrosis at this point in time. No nephrolithiasis is seen. IMPRESSION: 1.. Prominent hypoechoic areas visualized upper pole left kidney measuring 2.4cm, nodular contour vs mass. Recommend CT of abdomen.
[2020-03-01] MEDS: ACETAMINOPHEN TAB 325 MG TAB PO PRN (15:33)
[2020-03-01] MEDS: HYDROCORTISONE 10 MG TAB PO SCH (15:34)
--- NOTE | 2020-03-01 16:45 | CONS ---
CONSULTATION REASON FOR CONSULT: Renal failure. HISTORY OF PRESENT ILLNESS: Patient is an 84-year-old male who was admitted to the hospital with mental status changes. He has a history of prostatic cancer, status post radiation therapy. He is currently self-catheterizing at home. The patient was noted to have a fever of 101.4 degrees Fahrenheit on admission. His blood pressure was low, with systolic in the 80s. He has received IV fluids, and serum creatinine was noted to be 3.3 mg/dL on admission. Previous creatinine was 0.8 on 02/18/2020. Black catheter was placed and about 30 to 40 mL of urine was obtained. Patient's CK was elevated at 2185 on admission. At home, he was not on any ALO inhibitors or nonsteroidal anti-inflammatory agents. Currently patient is maintained on IV fluids. Ultrasound of the kidneys was done which does not show any significant hydronephrosis. PAST MEDICAL HISTORY: Prostatic cancer, status post radiation therapy, dementia, hypothyroidism, history of urinary retention with self-catheterization about 4 times a day, history of frequent urinary tract infections, pituitary mass which is stable, chronic anemia, macular degeneration, hypothyroidism. PAST SURGICAL HISTORY: Adenoidectomy, tonsillectomy, EGD, colonoscopy, cataract surgeries, bilateral lens implants. SOCIAL HISTORY: Patient is a former smoker. No history of drug abuse or alcohol abuse. MEDICATIONS: Medications at home included probiotics, hydrocortisone, Cortef, Tylenol, Celexa, Ativan, Synthroid, Prevacid, Topamax. ALLERGIES: ALLERGIES include SULFA and BACTRIM, which causes rash/hives. PHYSICAL EXAMINATION: Patient is comfortable. He is lying in bed. He is not in any acute distress. He is awake, confused. Blood pressure was 91/55 and then 123/66. Temperature was 101.1 degrees Fahrenheit. EXAMINATION OF THE HEART: S1 and S2. EXAMINATION OF LUNGS: Bilateral breath sounds are heard. ABDOMEN: Soft, non-tender. Examination of lower extremities shows no significant edema. KILN [employer]ER exam shows patient is moving all 4 extremities. LABS: Labs show sodium 135, potassium 4.7, chloride 103. CO2 is 24, BUN 35, creatinine 3.23, hemoglobin 12.0. CK 2318, troponin 0.070. UA shows 3+ protein, blood is large, WBCs more than 182. ASSESSMENT: 1. Acute kidney injury, acute tubular necrosis associated with hypotension, hypoperfusion. No nephrotoxic medications noted on home med list. No evidence of obstruction, as patient has an indwelling Black catheter which was placed this admission. Continue with IV fluids for now. 2. Left possible renal mass versus cyst. Check CT of the abdomen down the road. 3. Hypotension, most likely associated with hypovolemia. 4. History of prostatic cancer, status post radiation therapy. 5. History of urine retention with frequent self-catheterization. 6. Pyuria. Rule out underlying urinary tract infection, given the fever and encephalopathy. Blood cultures are currently pending. Maintain empiric antibiotics. 7. Sepsis, started on an antibiotics. Source is likely urinary tract infection. PLAN: Continue IV fluids. Continue empiric antibiotics. Follow up on cultures. Check CT of the abdomen down the road. Thank you for this consultation. Will continue to follow the patient with you during his hospitalization. MMODL / IJN: [id number] /
[2020-03-01] MEDS ORDERED: FAMOTIDINE 20 MG/2 ML VIAL IV SCH (21:00)
[2020-03-01] MEDS: PIPERACILLIN-TAZOBACTAM 3.375 GM in SODIUM CHLORIDE 0.9% 100 ML IVPB SCH (22:00)
[2020-03-01] MEDS: HEPARIN SODIUM,PORCINE 5,000 UNIT/ML 1 ML VIAL SQ SCH (23:11)
--- NOTE | 2020-03-01 23:57 | P.CONS ---
History of Present Illness - Reason for Consult Consult date: 03/01/20 Sepsis and UTI Requesting physician: Diego E Sheet - Chief Complaint Mental status changes x one day - History of Present Illness Patient is 84-year-old male with a past medical history significant for urinary retention requiring self-catheterization every 6 hours and history of recurrent urinary tract infection currently a half-way resident patient has been brought to the ER from the half-way with concern for mental status changes patient seemed to be getting less responsive to the half-way and apparently did have a fever with concern for possible sepsis the patient was sent to the wound. The patient has been less responsive he did have a fever of 101F. Was tachycardic and did have a white count of 24,000, patient did have a positive UA chest x-ray has been negative with concern for sepsis patient has been started on Zosyn admitted to the hospital infection it was consulted for further management of antibiotic therapy most information has been obtained from the chart and nursing staff as the patient is currently lethargic and is unable to afford any history Review of Systems Positive points has been mentioned in HPI complete review could not be obtained because of his underlying mental status Past Medical History Past Medical History: Cancer, Dementia, Eye Disorder, Memory Impairment, Thyroid Disorder Additional Past Medical History / Comment(s): Prostate CA with radiation/urinary retention/straight cath every 6 hours, occasional incontinence of urine, frequent UTIs and has confusion with UTIs, sepsis, stable benign pituitary mass, hyponatremia, chronic anemia, bilateral macular degeneration, unsteady/falls, hypothyroidism, pt's feet/legs are cold all the time. History of Any Multi-Drug Resistant Organisms: Other MDRO Past Surgical History: Adenoidectomy, Tonsillectomy Additional Past Surgical History / Comment(s): EGD/colonoscopy, bilateral yulissa ract removals/lens implants, midline Past Anesthesia/Blood Transfusion Reactions: No Reported Reaction Smoking Status: Former smoker - Past Family History Father Family Medical History: Cancer Additional Family Medical History / Comment(s): Colon CA, at 74. Mother Family Medical History: CVA/TIA Additional Family Medical History / Comment(s): Mother of a CVA at the age of 83yrs. Medications and Allergies Home Medications Medication Instructions Recorded Confirmed Type Vit C/E/Zn/Coppr/Lutein/Zeaxan 1 cap PO BID 03/18/18 03/01/20 History [Preservision Areds 2 Softgel] L.acidoph,Paracasei, B.lactis 1 cap PO BID 04/17/18 03/01/20 History [Probiotic] Hydrocortisone 20 mg PO QAM 10/26/19 03/01/20 History Hydrocortisone [Cortef] 10 mg PO DAILY@1400 11/17/19 03/01/20 History Acetaminophen [Tylenol] 500 mg PO Q6H PRN 02/15/20 03/01/20 History Citalopram Hydrobromide [CeleXA] 10 mg PO DAILY 03/01/20 03/01/20 History LORazepam [Ativan] 0.5 mg PO TID PRN 03/01/20 03/01/20 History Lansoprazole [Prevacid] 15 mg PO DAILY 03/01/20 03/01/20 History Levothyroxine Sodium [Synthroid] 150 mcg PO DAILY 03/01/20 03/01/20 History Topiramate [Topamax] 25 mg PO HS 03/01/20 03/01/20 History Allergies Allergy/AdvReac Type Severity Reaction Status Date / Time sulfamethoxazole Allergy Rash/Hives Verified 02/15/20 22:43 [From Bactrim] trimethoprim [From Bactrim] Allergy Rash/Hives Verified 02/15/20 22:43 Physical Exam Vitals: Vital Signs Temp Pulse Resp BP Pulse Ox 03/01/20 12:25 98.0 F 70 18 98 03/01/20 10:00 86 18 123/66 95 03/01/20 06:00 101.1 F H 92 169 H 91/55 95 03/01/20 05:00 101.4 F H 98 16 97/50 96 03/01/20 04:00 104/68 03/01/20 03:00 100 16 97/45 03/01/20 02:00 92 16 102/61 94 L 03/01/20 01:00 18 99/61 03/01/20 00:00 90 16 116/79 93 L 02/29/20 21:43 98.8 F 100 16 102/55 94 L Intake and Output 03/01/20 03/01/20 03/01/20 06:59 14:59 22:59 Output Total 30 Balance -30 Output: Urine 30 Straight 30 Post Void Residual 0 Other: Weight 87.09 kg GENERAL DESCRIPTION: Elderly male lying in bed, no distress. No tachypnea or accessory muscle of respiration use. HEENT: Shows Pallor , no scleral icterus. Oral mucous membrane is dry. No pharyngeal erythema or thrush NECK: Trachea central, no thyromegaly. LUNGS: Unlabored breathing. Clear to auscultation anteriorly. No wheeze or crackle. HEART: S1, S2, regular rate and rhythm. No loud murmur ABDOMEN: Soft, no tenderness , guarding or rigidity, no organomegaly EXTREMITIES: No edema of feet. SKIN: No rash, no masses palpable. NEUROLOGICAL: The patient is lethargic and orientation could not be determined. Results CBC & Chem 7: 03/01/20 10:11 03/01/20 11:10 Labs: Abnormal Lab Results - Last 24 Hours (Table) 02/29/20 02/29/20 02/29/20 Range/Units 22:50 22:50 22:50 WBC 24.9 H (3.8-10.6) k/uL RBC 4.17 L (4.30-5.90) m/uL Hgb (13.0-17.5) gm/dL Hct (39.0-53.0) % MCV (80.0-100.0) fL Neutrophils # 22.7 H (1.3-7.7) k/uL Lymphocytes # (1.0-4.8) k/uL PT 12.7 H (9.0-12.0) sec INR 1.3 H (<1.2) Sodium 136 L (137-145) mmol/L Chloride 96 L (98-107) mmol/L BUN 32 H (9-20) mg/dL Creatinine 3.30 H (0.66-1.25) mg/dL Glucose (74-99) mg/dL Calcium (8.4-10.2) mg/dL AST 117 H (17-59) U/L Creatine Kinase 2185 H* (55-170) U/L Troponin I (0.000-0.034) ng/mL TSH <0.015 L (0.465-4.680) mIU/L Urine Protein (Negative) Urine Blood (Negative) Ur Leukocyte Esterase (Negative) Urine RBC (0-5) /hpf Urine WBC (0-5) /hpf Urine WBC Clumps (None) /hpf Ur Squamous Epith Cells (0-4) /hpf Urine Bacteria (None) /hpf Urine Mucus (None) /hpf 02/29/20 03/01/20 03/01/20 Range/Units 22:50 03:57 10:11 WBC 15.9 H (3.8-10.6) k/uL RBC 3.57 L (4.30-5.90) m/uL Hgb 12.0 L (13.0-17.5) gm/dL Hct 36.4 L (39.0-53.0) % MCV 102.0 H (80.0-100.0) fL Neutrophils # 14.4 H (1.3-7.7) k/uL Lymphocytes # 0.7 L (1.0-4.8) k/uL PT (9.0-12.0) sec INR (<1.2) Sodium (137-145) mmol/L Chloride (98-107) mmol/L BUN (9-20) mg/dL Creatinine (0.66-1.25) mg/dL Glucose (74-99) mg/dL Calcium (8.4-10.2) mg/dL AST (17-59) U/L Creatine Kinase (55-170) U/L Troponin I 0.070 H* (0.000-0.034) ng/mL TSH (0.465-4.680) mIU/L Urine Protein 3+ H (Negative) Urine Blood Large H (Negative) Ur Leukocyte Esterase Large H (Negative) Urine RBC 107 H (0-5) /hpf Urine WBC >182 H (0-5) /hpf Urine WBC Clumps Many H (None) /hpf Ur Squamous Epith Cells 6 H (0-4) /hpf Urine Bacteria Few H (None) /hpf Urine Mucus Occasional H (None) /hpf 03/01/20 Range/Units 11:10 WBC (3.8-10.6) k/uL RBC (4.30-5.90) m/uL Hgb (13.0-17.5) gm/dL Hct (39.0-53.0) % MCV (80.0-100.0) fL Neutrophils # (1.3-7.7) k/uL Lymphocytes # (1.0-4.8) k/uL PT (9.0-12.0) sec INR (<1.2) Sodium 135 L (137-145) mmol/L Chloride (98-107) mmol/L BUN 35 H (9-20) mg/dL Creatinine 3.23 H (0.66-1.25) mg/dL Glucose 100 H (74-99) mg/dL Calcium 7.6 L (8.4-10.2) mg/dL AST (17-59) U/L Creatine Kinase 2318 H* (55-170) U/L Troponin I (0.000-0.034) ng/mL TSH (0.465-4.680) mIU/L Urine Protein (Negative) Urine Blood (Negative) Ur Leukocyte Esterase (Negative) Urine RBC (0-5) /hpf Urine WBC (0-5) /hpf Urine WBC Clumps (None) /hpf Ur Squamous Epith Cells (0-4) /hpf Urine Bacteria (None) /hpf Urine Mucus (None) /hpf Microbiology - Last 24 Hours (Table) 03/01/20 03:57 Urine Culture - Preliminary Urine,Voided Assessment and Plan Assessment: 1- patient presented to hospital with sepsis in this patient who did have a fever tachycardia and elevated white count significantly positive UA source is likely gram-negative infection in this patient with a history of urinary outflow obstruction and now also with evidence of renal insufficiency with elevated BUN/creatinine 2-Patient with multiple antibiotic ALLERGIES that would limit the number of antibiotic safe to use 3- renal insufficiency with low creatinine clearance and high risk of nephrotoxicity from certain antibiotics (1) Sepsis Current Visit: No Status: Acute Code(s): A41.9 - SEPSIS, UNSPECIFIED ORGANISM SNOMED Code(s): 79610420 (2) Urinary tract infection Current Visit: No Status: Acute Code(s): N39.0 - URINARY TRACT INFECTION, SITE NOT SPECIFIED SNOMED Code(s): 68813609 Plan: 1- 3.375 g every 12 hourr dose adjusted to the kidney function 2- IV fluid 3-check ultrasound kidneys bladder area We will follow on clinical condition and cultures to further adjust medication if needed Thank you for this consultation will follow this patient with you Time with Patient: Greater than 30
[2020-03-02] MEDS: PIPERACILLIN-TAZOBACTAM 3.375 GM in SODIUM CHLORIDE 0.9% 100 ML IVPB SCH ×3 (03:45→21:26)
[2020-03-02] MEDS: SODIUM CHLORIDE 0.9% 1,000 ML IV SCH ×2 (03:45→21:26)
[2020-03-02] MEDS: LEVOTHYROXINE 75 MCG TAB PO SCH (03:46)
[2020-03-02 08:05] LABS: Calcium 7.6 mg/dL (8.4-10.2); Potassium 3.9 mmol/L (3.5-5.1)
[2020-03-02] MEDS: HYDROCORTISONE 10 MG TAB PO SCH ×2 (08:12→14:46)
[2020-03-02] MEDS: CITALOPRAM HYDROBROMIDE 10 MG TAB PO SCH (08:12)
[2020-03-02] MEDS: HEPARIN SODIUM,PORCINE 5,000 UNIT/ML 1 ML VIAL SQ SCH ×2 (08:12→21:28)
[2020-03-02 09:09] LABS: HCT 33.9 % (39.0-53.0); HGB 10.7 gm/dL (13.0-17.5); MCH 31.8 pg (25.0-35.0); MCHC 31.6 g/dL (31.0-37.0); MCV 100.9 fL (80.0-100.0); Macrocytosis Slight; Mean Platelet Volume 7.5; Platelet Count 168 k/uL (150-450); RBC 3.36 m/uL (4.30-5.90); RDW 13.7 % (11.5-15.5); WBC 13.1 k/uL (3.8-10.6)
--- NOTE | 2020-03-02 09:30 | P.PN ---
Subjective This is a pleasant 84 years old male with past medical history of prostate cancer status post radiotherapy, he self cath himself 4 times a day, frequent UTI, hyponatremia, bilateral macular degeneration, hypothyroidism, memory impairment . Patient is confused and cannot provide meaningful information, he is not oriented about the time place and person, and does not ON the hospital. However he does not look in distress and he did not complain from pain to me. History is exam looks clear and abdominal exam looks benign. This is the fifth admission to the hospital over 4 months On admission patient has fever of 101.4. Blood pressure on the low side 91/55, heart rate 92-98, saturating 95% and a sister oxygen via nasal cannula. Labs showed leukocytosis with WBC 24.9, 15.9 K, hemoglobin is 12, platelet is normal. Sodium 135, creatinine elevated at 3.2, base in-line normal creatinine 0.8-1.0. Elevated creatine kinase 2318. TSH low less than 0.015, with normal free T4, he Y is suspicious for infection EKG sinus tachycardia at [address]-T changes, chest x-ray: No acute process. CT of the brain showing cerebral atrophy with no acute changes. The emergency room patient of ceftriaxone on normal saline at 75 mL/h 03/02/2020 is more awake but still lethargic this morning. He did not have good appetite to eat his breakfast.he reports no difficulty in voids He had fever of 101 yesterday.is showing trending down WBC 213.1 K, sodium 136 and creatinine trending down as well as 2.0. Infectious disease input is appreciated. Border Patrol Agent team on the case as well. Patient is currently on Zosyn and normal saline at 75 mL/h, we don't allow her to 50 mL per hour Review of Systems CONSTITUTIONAL: No fever, no malaise, no fatigue. HEENT: No recent visual problems or hearing problems. Denied any sore throat. CARDIOVASCULAR: No orthopnea, PND, no palpitations, no syncope. PULMONARY: No shortness of breath, no cough, no hemoptysis. GASTROINTESTINAL: No diarrhea, no nausea, no vomiting, no abdominal pain. N ormoactive bowel sounds. NEUROLOGICAL: No headaches, no weakness, no numbness. HEMATOLOGICAL: Denies any bleeding or petechiae. GENITOURINARY: Denies any burning micturition, frequency, or urgency. MUSCULOSKELETAL/RHEUMATOLOGICAL: Denies any joint pain, swelling, or any muscle pain. ENDOCRINE: Denies any polyuria or polydipsia. Active Medications Generic Name Dose Route Start Last Admin Trade Name Freq PRN Reason Stop Dose Admin Acetaminophen 650 mg 03/01/20 05:21 03/01/20 15:33 Tylenol Tab PO 650 mg Q4HR PRN Administration Fever and/ or Pain Citalopram Hydrobromide 10 mg 03/01/20 10:00 03/02/20 08:12 Celexa PO 10 mg DAILY DEBORAH Administration Famotidine 20 mg 03/01/20 21:00 03/01/20 21:59 Pepcid IV 20 mg Q24H DEBORAH Administration Heparin Sodium (Porcine) 5,000 unit 03/01/20 21:00 03/02/20 08:12 Heparin SQ 5,000 unit Q12HR DEBORAH Administration Hydrocortisone 10 mg 03/01/20 14:00 03/01/20 15:34 Cortef PO 10 mg DAILY@1400 DEBORAH Administration Hydrocortisone 20 mg 03/02/20 09:00 03/02/20 08:12 Cortef PO 20 mg QAM DEBORAH Administration Sodium Chloride 1,000 mls @ 75 mls/hr 03/01/20 00:30 03/02/20 03:45 Saline 0.9% IV Not Given .[id number] DEBORAH Piperacillin Sod/Tazobactam 100 mls @ 25 mls/hr 03/01/20 20:00 03/02/20 03:45 Sod 3.375 gm/ Sodium Chloride IVPB 25 mls/hr Q8H DEBORAH Administration Levothyroxine Sodium 150 mcg 03/01/20 10:00 03/02/20 03:46 Synthroid PO 150 mcg 0630 DEBORAH Administration Naloxone HCl 0.2 mg 03/01/20 00:17 Narcan IV Q2M PRN Opioid Reversal Objective - Vital Signs Vital signs: Vital Signs Temp 98.4 F 03/02/20 04:00 Pulse 62 03/02/20 04:00 Resp 18 03/02/20 04:00 BP 116/68 03/02/20 04:00 Pulse Ox 94 L 03/02/20 04:00 Intake & Output 03/01/20 03/02/20 03/02/20 18:59 06:59 18:59 Intake Total 500 240 Output Total 550 Balance -50 240 Weight 87.09 kg 77 kg Intake: Intake, IV Titration 500 Amount Sodium Chloride 0.9% 1, 450 000 ml @ 75 mls/hr IV . [id number] DEBORAH Rx#:[id number] cefTRIAXone 1 gm In 50 Sodium Chloride 0.9% 50 ml @ 100 mls/hr IVPB Q12HR DEBORAH Rx#:[id number] Oral 240 Output: Urine 550 Other: Voiding Method Indwelling Catheter # Bowel Movements 1 - Exam GENERAL: The patient is alert , awake but disoriented, not in any acute distress. Well developed, well nourished. HEENT: Pupils are round and equally reacting to light. EOMI. No scleral icterus. No conjunctival pallor. Normocephalic, atraumatic. No pharyngeal erythema. No thyromegaly. CARDIOVASCULAR: S1 and S2 present. No murmurs, rubs, or gallops. PULMONARY: Chest is clear to auscultation, no wheezing or crackles. ABDOMEN: Soft, nontender, nondistended, normoactive bowel sounds. No palpable organomegaly. MUSCULOSKELETAL: No joint swelling or deformity. EXTREMITIES: No cyanosis, clubbing, or pedal edema. NEUROLOGICAL: Gross neurological examination did not reveal any focal deficits. SKIN: No rashes. no petechiae. - Labs CBC & Chem 7: 03/02/20 07:30 03/02/20 06:51 Labs: Abnormal Lab Results - Last 24 Hours (Table) 03/01/20 03/01/20 03/02/20 Range/Units 10:11 11:10 06:51 WBC 15.9 H (3.8-10.6) k/uL RBC 3.57 L (4.30-5.90) m/uL Hgb 12.0 L (13.0-17.5) gm/dL Hct 36.4 L (39.0-53.0) % MCV 102.0 H (80.0-100.0) fL Neutrophils # 14.4 H (1.3-7.7) k/uL Lymphocytes # 0.7 L (1.0-4.8) k/uL Sodium 135 L 136 L (137-145) mmol/L Carbon Dioxide 21 L (22-30) mmol/L BUN 35 H 38 H (9-20) mg/dL Creatinine 3.23 H 2.01 H (0.66-1.25) mg/dL Glucose 100 H 69 L (74-99) mg/dL Calcium 7.6 L 7.6 L (8.4-10.2) mg/dL Creatine Kinase 2318 H* (55-170) U/L 03/02/20 Range/Units 07:30 WBC 13.1 H (3.8-10.6) k/uL RBC 3.36 L (4.30-5.90) m/uL Hgb 10.7 L (13.0-17.5) gm/dL Hct 33.9 L (39.0-53.0) % MCV 100.9 H (80.0-100.0) fL Neutrophils # (1.3-7.7) k/uL Lymphocytes # (1.0-4.8) k/uL Sodium (137-145) mmol/L Carbon Dioxide (22-30) mmol/L BUN (9-20) mg/dL Creatinine (0.66-1.25) mg/dL Glucose (74-99) mg/dL Calcium (8.4-10.2) mg/dL Creatine Kinase (55-170) U/L Microbiology - Last 24 Hours (Table) 03/01/20 00:43 Blood Culture - Preliminary Blood No Growth after 24 hours 03/01/20 03:57 Urine Culture - Preliminary Urine,Voided Assessment and Plan Assessment: Acute urinary tract infection Sepsis with positive SIRS criteria with leukocytosis and fever and tachycardia. Acute kidney injury metabolic encephalopathy secondary to above Prostate cancer status post radiotherapy, self-catheterization with frequent UTI History of hyponatremia Bilateral macular degeneration Hypothyroidism: Memory impairment Plan: this is a pleasant 84 years old male who presents with UTI, tolerating encephalopathy. Continue with Rocephin. Check renal ultrasound. Follow-up urine culture and blood culture. Covid test is pending. Consult infectious disease Labs and medication were reviewed.. Continue same treatment. Continue with symptomatic treatment. Resume home medication. Monitor lytes and vitals. DVT and GI prophylaxis. Further recommendations of the clinical course of the patient DVT prophylaxis: Subcutaneous heparin GI Prophylaxis: Pepcid PT/OT: Pending Prognosis is guarded
[2020-03-02 10:41] LABS: Lymphocytes # (M) 0.66 k/uL (1.0-4.8); Monocytes # (M) 0.39 k/uL (0-1.0); Neutrophils # (M) 12.05 k/uL (1.3-7.7); Neutrophils % (M) 92 %; Nucleated Red Blood Cells 0 /100 WBC (0-0); Total Cells Counted 100
--- NOTE | 2020-03-02 13:22 | PN ---
PROGRESS NOTE Patient is seen for followup for acute kidney injury. He was admitted to the hospital with mental status changes, fever. The patient is found to have evidence of underlying urinary tract infection. Urine culture is currently pending. He is maintained on antibiotics. The patient is now afebrile. He also has an indwelling Black catheter with good urine output. A 24 hour urine output was documented at 550 mL. I am not sure if this was accurate. The patient was hypotensive initially. Currently, his blood pressure is 128-140 mmHg systolic. He is maintained on IV fluids. Serum creatinine is 2.0, which is down from 3.3 on initial admission. Mentation has improved today. On examination today, blood pressure 133/60, heart rate of 80 per minute. Patient is afebrile. Examination of the heart S1, S2. Examination of the lungs, bilateral breath sounds are heard. Abdomen is soft, nontender. Examination of lower extremities shows no significant edema. TRAUMA NURSE exam grossly intact. Lab show sodium of 136, potassium 3.9, chloride 105 BUN 38, creatinine 2.01. CK level 2318 yesterday. Gao virus PCR was negative. UA showed more than 182 WBCs with many WBC clumps. Urine culture is currently pending. ASSESSMENT: 1. Acute kidney injury associated with hypotension, hypoperfusion, sepsis, currently nonoliguric with indwelling Black catheter and improving. Ultrasound of the kidneys does not show any hydronephrosis. 2. Lesion on the left kidney. We will need CT of the abdomen down the road, cyst versus mass. 3. Hypotension from sepsis most likely from urinary tract infection. Urine culture is pending. Patient is maintained on empiric antibiotics. 4. Mild rhabdomyolysis. 5. Mental status changes secondary to sepsis now improved. 6. History of urine retention with self catheterization previously. 7. History of prostatic cancer status post radiation therapy. PLAN: Continue IV fluids. Continue to avoid nephrotoxic agents. Continue antibiotics. Follow up on urine cultures. MMODL / IJN: [id number] /
--- NOTE | 2020-03-02 15:40 | PN ---
PROGRESS NOTE DATE OF SERVICE: 03/02/2020 REASON FOR FOLLOWUP: Gram-negative urinary tract infection. INTERVAL HISTORY: The patient is currently afebrile. He is more awake and alert. He is breathing comfortably. Denies having any chest pain or cough. No nausea or vomiting. No abdominal pain or diarrhea. PHYSICAL EXAMINATION: Blood pressure 150/69 with a pulse of 70, temperature 97.5. He is 95% on room air. General description is an elderly male up in the chair in no distress. RESPIRATORY SYSTEM: Unlabored breathing. Clear to auscultation anteriorly. HEART: S1, S2. Regular rate and rhythm. ABDOMEN: Soft. No tenderness. LABS: Hemoglobin 10.7, white count 13.1. Creatinine is down to 0.1. Urine showing Gram- negative. Blood culture has been negative so far. Renal ultrasound with a question of possible nodular contour versus mass. DIAGNOSTIC IMPRESSION AND PLAN: Patient admitted to hospital with sepsis. Source is urinary in this patient who did have a Gram-negative in the urine. The patient is currently covered with Zosyn; to continue, adjusting antibiotic further on the bases of the culture report. Continue with supportive care. MMODL / IJN: [id number] /
[2020-03-02] MEDS ORDERED: FAMOTIDINE 20 MG TAB PO SCH (21:00)
[2020-03-03] MEDS: PIPERACILLIN-TAZOBACTAM 3.375 GM in SODIUM CHLORIDE 0.9% 100 ML IVPB SCH ×2 (03:20→11:01)
[2020-03-03] MEDS: LEVOTHYROXINE 75 MCG TAB PO SCH (04:46)
[2020-03-03] MEDS: SODIUM CHLORIDE 0.9% 1,000 ML IV SCH ×2 (05:37→06:37)
[2020-03-03 06:34] LABS: Basophils % (A) 0 %; Eosinophils # (A) 0.1 k/uL (0-0.7); Eosinophils % (A) 1 %; HCT 31.2 % (39.0-53.0); HGB 10.5 gm/dL (13.0-17.5); Lymphocytes % (A) 12 %; MCH 33.8 pg (25.0-35.0); MCHC 33.5 g/dL (31.0-37.0); MCV 100.8 fL (80.0-100.0); Macrocytosis Slight; Mean Platelet Volume 7.1; Monocytes # (A) 0.3 k/uL (0-1.0); Monocytes % (A) 4 %; Neutrophils % (A) 83 %; Platelet Count 168 k/uL (150-450); RBC 3.09 m/uL (4.30-5.90); RDW 13.8 % (11.5-15.5); WBC 8.4 k/uL (3.8-10.6)
[2020-03-03 06:46] LABS: Calcium 7.5 mg/dL (8.4-10.2)
[2020-03-03 07:34] VITALS: PULSE 64; RESP 18
[2020-03-03] MEDS: HYDROCORTISONE 10 MG TAB PO SCH ×2 (07:44→15:05)
[2020-03-03] MEDS: HEPARIN SODIUM,PORCINE 5,000 UNIT/ML 1 ML VIAL SQ SCH (07:44)
[2020-03-03] MEDS: CITALOPRAM HYDROBROMIDE 10 MG TAB PO SCH (07:44)
[2020-03-03] MEDS ORDERED: traMADol 50 MG TAB PO PRN (09:24)
--- NOTE | 2020-03-03 10:56 | P.DS ---
Providers Date of admission: 03/01/20 00:17 Attending physician: Kristina Gunn Consults: 03/01/20 00:18 Consult Physician Urgent Consulting Provider: Daniel Serrano Consult Reason/Comments: cristin Do you want consulting provider notified?: Yes 03/01/20 12:48 Consult Physician Urgent Consulting Provider: Carolina Fitzpatrick Consult Reason/Comments: Recurrent UTI Do you want consulting provider notified?: Yes Primary care physician: [facility] Course: Diagnoses: Acute urinary tract infection secondary to Pseudomonas, sensitive to Cipro Sepsis with positive SIRS criteria with leukocytosis and fever and tachycardia. Improved Acute kidney injury metabolic , came back close to normal Metabolic encephalopathy secondary to above, came back to normal or baseline mentation Rhabdomyolysis with generalized muscular pain elevated troponin, secondary to renal problem and infection. 11/2019 showing ejection fraction 50-55%, mild LVH, no mention of LV wall hypokinesis Prostate cancer status post radiotherapy, self-catheterization with frequent UTI History of hyponatremia Bilateral macular degeneration Hypothyroidism Memory impairment Hospital course: This is a pleasant 84 years old male with past medical history of prostate cancer status post radiotherapy, he self cath himself 4 times a day, frequent UTI, hyponatremia, bilateral macular degeneration, hypothyroidism, memory impairment . This is the fifth admission to the hospital over 4 months .Patient is Poor historian. However he was more confused when he came into the hospital, patient improved with hydration and IV antibiotics with Zosyn. CT of the brain showing cerebral atrophy with no acute changes. His mentation came back to his baseline. His creatinine improved from 3.3 down to 1.3. And high creatine kinase. Patient self cath himself at home, Black catheter was placed in the hospital. Patient had elevated troponin as well. Mostly secondary to infection and sepsis, similar to what happened in a 11/2019. Elevated troponin and evaluated by photo tube assembler and echocardiogram showing ejection fraction of 50-55%, photo tube assembler recommended no further tests stating that this troponin get high when he got sepsis from UTI. His creatinine kinase come down from 2318 down to 315 The patient back to his baseline however is high-risk for recurrent infection,. Patient was cleared for discharge by nephrology and infectious disease team Problems and management plan were discussed with the patient and he verbalized understanding and acceptance Patient was found stable and can be discharged home however he needs follow-up as an outpatient. Patient was instructed to follow up with PCP within one week and patient agrees Gen: patient is a AAOx2-3, no distress CVS: S1-S2, RRR, no murmur Lungs: B/L CTA, no wheezing Abdomen: soft, no distention, no tenderness, positive bowel sounds. Black catheter is in place Extremity: no leg edema or induration Time spent more than 35 minutes Patient Condition at Discharge: Serious Plan - Discharge Summary Discharge Rx Participant: No New Discharge Prescriptions: New Ciprofloxacin HCl [Cipro] 500 mg PO Q12H 7 Days #14 tab Heparin Sodium,Porcine [Heparin Sodium] 5,000 unit SQ Q12HR vial Acetaminophen Tab [Tylenol] 650 mg PO Q4HR PRN tab PRN Reason: Fever And/ Or Pain Continue Vit C/E/Zn/Coppr/Lutein/Zeaxan [Preservision Areds 2 Softgel] 1 cap PO BID L.acidoph,Paracasei, B.lactis [Probiotic] 1 cap PO BID Hydrocortisone 20 mg PO QAM Hydrocortisone [Cortef] 10 mg PO DAILY@1400 Acetaminophen [Tylenol] 500 mg PO Q6H PRN PRN Reason: Pain Topiramate [Topamax] 25 mg PO HS Lansoprazole [Prevacid] 15 mg PO DAILY Levothyroxine Sodium [Synthroid] 150 mcg PO DAILY Citalopram Hydrobromide [CeleXA] 10 mg PO DAILY LORazepam [Ativan] 0.5 mg PO TID PRN PRN Reason: Anxiety Discharge Medication List Vit C/E/Zn/Coppr/Lutein/Zeaxan [Preservision Areds 2 Softgel] 1 cap PO BID 03/18/18 [History] L.acidoph,Paracasei, B.lactis [Probiotic] 1 cap PO BID 04/17/18 [History] Hydrocortisone 20 mg PO QAM 10/26/19 [History] Hydrocortisone [Cortef] 10 mg PO DAILY@1400 11/17/19 [History] Acetaminophen [Tylenol] 500 mg PO Q6H PRN 02/15/20 [History] Citalopram Hydrobromide [CeleXA] 10 mg PO DAILY 03/01/20 [History] LORazepam [Ativan] 0.5 mg PO TID PRN 03/01/20 [History] Lansoprazole [Prevacid] 15 mg PO DAILY 03/01/20 [History] Levothyroxine Sodium [Synthroid] 150 mcg PO DAILY 03/01/20 [History] Topiramate [Topamax] 25 mg PO HS 03/01/20 [History] Acetaminophen Tab [Tylenol] 650 mg PO Q4HR PRN tab 03/03/20 [Rx] Ciprofloxacin HCl [Cipro] 500 mg PO Q12H 7 Days #14 tab 03/03/20 [Rx] Heparin Sodium,Porcine [Heparin Sodium] 5,000 unit SQ Q12HR vial 03/03/20 [Rx] Follow up Appointment(s)/Referral(s): Margarito Mariano MD [Primary Care Provider] - 1-2 days Ashley Pulido MD [STAFF PHYSICIAN] - 2 Weeks Activity/Diet/Wound Care/Special Instructions: stacey babita
[2020-03-03] MEDS ORDERED: CIPROFLOXACIN HCL 500 MG TAB PO STA (11:40)
[2020-03-03 11:43] VITALS: BP 134/75; TEMP 98.4
--- NOTE | 2020-03-03 12:28 | PN ---
PROGRESS NOTE DATE OF SERVICE: 03/03/2020 REASON FOR FOLLOWUP: Pseudomonas urinary tract infection. INTERVAL HISTORY: Patient is currently afebrile, has been breathing comfortably. Did mention he is not feeling that great today though. No chest pain. No cough. No nausea, no vomiting. No abdominal pain. No diarrhea. PHYSICAL EXAMINATION: Blood pressure 134/75 with a pulse of 64, temperature 98.4. He is 94% on room air. General description: The patient is an elderly male up in the chair in no distress. Respiratory system: Unlabored breathing, clear to auscultation anteriorly. Heart S1, S2. Regular rate and rhythm. Abdomen soft, no tenderness. LABS: Hemoglobin is 10.5, white count 8.4, BUN of 35, creatinine 1.32. Blood culture has been negative. Urine is positive for Pseudomonas that is sensitive pathogen. Ultrasound of the kidney did shows left upper abnormality. DIAGNOSTIC IMPRESSION AND PLAN: Patient admitted to the hospital with sepsis, source likely Pseudomonas urinary tract infection, clinically responding to Zosyn. Plan to finish therapy with oral Cipro for another week and may need a CT to better define his mild abnormality seen on ultrasound and close outpatient followup. MMODL / IJN: [id number] /
--- NOTE | 2020-03-03 12:43 | PN ---
PROGRESS NOTE Patient is seen for followup for acute kidney injury. His renal function has improved with creatinine down to 1.32 now from 3.3.3 on initial admission. The patient is maintained on IV fluids. He has an indwelling Black catheter with good urine output. He is eating well. PHYSICAL EXAMINATION: Blood pressure this morning 134/75, heart rate 64 per minute. He is afebrile. Examination of the heart S1, S2. Examination of the lungs, bilateral breath sounds are heard. Abdomen is soft, nontender. Examination of lower extremities shows no evidence of edema. COAT HANGER SHAPER MACHINE OPERATOR exam grossly intact. LABS: Show sodium of 135, potassium 4.0, BUN 35, creatinine 1.32, hemoglobin of 10.5 g/dL. CK was 2318, now down to 3.5. ASSESSMENT: 1. Acute kidney injury secondary to hypotension, hypoperfusion and sepsis now improved. 2. Hypotension from sepsis from urinary tract infection. 3. Mild rhabdomyolysis, now improved. 4. History of urinary retention currently self catheterizes. 5. Altered mentation on admission secondary to sepsis now improved. 6. History of prostatic cancer status post radiation therapy. PLAN: Patient is stable for discharge from nephrology standpoint. He is advised to maintain adequate hydration and avoid NSAIDs. MMODL / IJN: [id number] /
[2020-03-03] MEDS: ACETAMINOPHEN TAB 325 MG TAB PO PRN (15:04)
== END 2020-03-03 16:30 | DRG 871 ==
LOC: EC 21:40 → 3SCARD 03-01 00:17
PROVIDERS: ADMIT Hospitalist; ATTEND Hospitalist
DX: A41.52 Sepsis due to Pseudomonas (principal); G93.41 Metabolic encephalopathy; N17.0 Acute kidney failure with tubular necrosis; E27.40 Unspecified adrenocortical insufficiency; N39.0 Urinary tract infection, site not specified; M62.82 Rhabdomyolysis; E03.9 Hypothyroidism, unspecified; Z96.1 Presence of intraocular lens; E86.0 Dehydration; F03.90 Unspecified dementia, unspecified severity, without behavioral disturbance, psychotic disturbance, mood disturbance, and anxiety; H35.30 Unspecified macular degeneration; E86.1 Hypovolemia; Z79.899 Other long term (current) drug therapy; Z11.59 Encounter for screening for other viral diseases; Z79.890 Hormone replacement therapy; Z88.2 Allergy status to sulfonamides; Z87.440 Personal history of urinary (tract) infections; Z87.891 Personal history of nicotine dependence; Z85.46 Personal history of malignant neoplasm of prostate; Z82.3 Family history of stroke; Z90.89 Acquired absence of other organs; Z98.890 Other specified postprocedural states; Z98.42 Cataract extraction status, left eye; Z98.41 Cataract extraction status, right eye; Z80.0 Family history of malignant neoplasm of digestive organs; Z92.3 Personal history of irradiation
CPT/HCPCS: 36415; 51701; 70450; 71045; 76770; 80048; 80053; 80329; 81001; 82140; 82550; 83520; 84439; 84443; 84484; 85025; 85610; 85730; 87040; 87077; 87086; 87186; 93005; 96361; 96365; 96375; 96376; 99285

== ENCOUNTER 2020-05-23 10:55 | Emergency (ER) | payer MEDICARE, BC ==
[2020-05-23 11:28] VITALS: BP 120/54; PULSE 54; RESP 18; TEMP 97.2
--- NOTE | 2020-05-23 11:35 | ED ---
General Adult HPI - General Chief complaint: Urogenital Stated complaint: Catheter problem Time Seen by Provider: 05/23/20 10:59 Source: patient, RN notes reviewed Mode of arrival: ambulatory Limitations: no limitations - History of Present Illness Initial comments: Patient is a pleasant 84-year-old male presenting to the emergency Department with problems with his Black catheter. Apparently staff at the intermediate was trying to change the Black. They were unable to remove the Black. They did cut the Black catheter and still unable to remove it. Patient has no complaints otherwise. - Related Data Home Medications Medication Instructions Recorded Confirmed Vit C/E/Zn/Coppr/Lutein/Zeaxan 1 cap PO BID 03/18/18 03/01/20 [Preservision Areds 2 Softgel] L.acidoph,Paracasei, B.lactis 1 cap PO BID 04/17/18 03/01/20 [Probiotic] Hydrocortisone 20 mg PO QAM 10/26/19 03/01/20 Hydrocortisone [Cortef] 10 mg PO DAILY@1400 11/17/19 03/01/20 Acetaminophen [Tylenol] 500 mg PO Q6H PRN 02/15/20 03/01/20 Citalopram Hydrobromide [CeleXA] 10 mg PO DAILY 03/01/20 03/01/20 Lansoprazole [Prevacid] 15 mg PO DAILY 03/01/20 03/01/20 Levothyroxine Sodium [Synthroid] 150 mcg PO DAILY 03/01/20 03/01/20 Topiramate [Topamax] 25 mg PO HS 03/01/20 03/01/20 Previous Rx's Medication Instructions Recorded Acetaminophen Tab [Tylenol] 650 mg PO Q4HR PRN tab 03/03/20 Ciprofloxacin HCl [Cipro] 500 mg PO Q12H 7 Days #14 tab 03/03/20 Heparin Sodium,Porcine [Heparin 5,000 unit SQ Q12HR vial 03/03/20 Sodium] Allergies Allergy/AdvReac Type Severity Reaction Status Date / Time sulfamethoxazole Allergy Rash/Hives Verified 05/23/20 11:28 [From Bactrim] trimethoprim [From Bactrim] Allergy Rash/Hives Verified 05/23/20 11:28 Review of Systems ROS Statement: Those systems with pertinent positive or pertinent negative responses have been documented in the HPI. ROS Other: All systems not noted in ROS Statement are negative. Constitutional: Denies: fever Eyes: Denies: eye pain ENT: Denies: ear pain Respiratory: Denies: cough Cardiovascular: Denies: chest pain Endocrine: Denies: fatigue Gastrointestinal: Denies: vomiting Genitourinary: Reports: as per HPI. Denies: dysuria, hematuria Musculoskeletal: Denies: back pain Skin: Denies: rash Neurological: Denies: weakness Past Medical History Past Medical History: Cancer, Eye Disorder, Memory Impairment, Thyroid Disorder Additional Past Medical History / Comment(s): Prostate CA with radiation/urinary retention/self caths 4 times a day-8am,2p,8pm,2am/ occasional incontinence of urine, frequent UTIs and has confusion with UTIs, stable benign pituitary mass, hyponatremia, chronic anemia, bilateral macular degeneration, hypothyroidism, pt's feet/legs are cold all the time. History of Any Multi-Drug Resistant Organisms: Other MDRO Past Surgical History: Adenoidectomy, Tonsillectomy Additional Past Surgical History / Comment(s): EGD/colonoscopy, bilateral cataract removals/lens implants, midline Past Anesthesia/Blood Transfusion Reactions: No Reported Reaction Past Psychological History: No Psychological Hx Reported Past Alcohol Use History: None Reported Past Drug Use History: None Reported - Past Family History Father Family Medical History: Cancer Additional Family Medical History / Comment(s): Colon CA, at 74. Mother Family Medical History: No Reported History, CVA/TIA Additional Family Medical History / Comment(s): Mother of a CVA at the age of 83yrs. General Exam Limitations: no limitations General appearance: alert, in no apparent distress Eye exam: Present: normal appearance Neck exam: Present: normal inspection Respiratory exam: Present: normal lung sounds bilaterally Cardiovascular Exam: Present: regular rate, normal rhythm GI/Abdominal exam: Present: soft. Absent: tenderness exam: Present: normal inspection, other (Black catheter is in place that is cut with approximately 6 inches extruding.) Extremities exam: Present: normal inspection Neurological exam: Present: alert Psychiatric exam: Present: normal affect, normal mood Skin exam: Present: normal color Course Vital Signs 05/23/20 11:25 Temperature 97.2 F L Pulse Rate 54 L Respiratory 18 Rate Blood Pressure 120/54 O2 Sat by Pulse 98 Oximetry Procedures - Procedures Initial comment: Black catheter removed with manual traction with minimal difficulty. Minimal discomfort. No bleeding. Balloon was essentially deflated. Medical Decision Making - Medical Decision Making Fully catheter did go and without difficulty. Disposition Clinical Impression: Urinary retention, Malfunction of Black catheter Disposition: HOME SELF-CARE Condition: Stable Instructions (If sedation given, give patient instructions): Black Catheter Placement and Care (ED) Additional Instructions: Please follow-up with your urologist as planned. Return for fevers, unable to pass urine, worsening or changing symptoms or other concerns. Is patient prescribed a controlled substance at d/c from ED?: No Referrals: Maynor Rogers MD [Primary Care Provider] - 1-2 days Time of Disposition: 11:52
== END 2020-05-23 12:20 | disposition home or self-care (01) ==
LOC: EC 10:55
DX: R33.9 Retention of urine, unspecified (principal); T83.011A Breakdown (mechanical) of indwelling urethral catheter, initial encounter; E03.9 Hypothyroidism, unspecified; Z79.899 Other long term (current) drug therapy; Z79.890 Hormone replacement therapy; Z88.2 Allergy status to sulfonamides; Z88.1 Allergy status to other antibiotic agents; Z85.46 Personal history of malignant neoplasm of prostate
CPT/HCPCS: 99283

== ENCOUNTER 2020-09-09 00:10 | Observation (INO) | payer MEDICARE, BC ==
[2020-09-09] MEDS ORDERED: SODIUM CHLORIDE 0.9% 1,000 ML IV STA (00:18)
--- NOTE | 2020-09-09 00:27 | ED ---
Recheck HPI - General Chief Complaint: Recheck/Abnormal Lab/Rx Stated Complaint: Diarrhea, +COVID Time Seen by Provider: 09/09/20 00:18 Source: EMS, RN notes reviewed, old records reviewed Mode of arrival: EMS Limitations: no limitations - History of Present Illness Initial Comments: This is a 4-year-old male DF presents today for evaluation regards to weakness. Patient is found to be significantly weak here in the ER was transfer for low oxygen secondary to known coronavirus. Patient is a poor strength secondary dementia history obtained from EMS and patient's charting MD Complaint: abnormal lab (Known coronavirus with low oxygen) -: unknown Returns Today for: Called Because of Abnormal Lab/Test, persistent/worsening pain related to initial visit Symptoms Since Prior Visit: no new symptoms Associated Symptoms: none Treatments Prior to Arrival: urinary catheter in place - Related Data Home Medications Medication Instructions Recorded Confirmed Hydrocortisone 20 mg PO QAM 10/26/19 09/09/20 Hydrocortisone [Cortef] 10 mg PO DAILY@1400 11/17/19 09/09/20 Citalopram Hydrobromide [CeleXA] 10 mg PO DAILY 03/01/20 09/09/20 Lansoprazole [Prevacid] 15 mg PO DAILY 03/01/20 09/09/20 Topiramate [Topamax] 25 mg PO BID 03/01/20 09/09/20 Furosemide [Lasix] 20 mg PO DAILY 09/09/20 09/09/20 Guaifenesin/Dextromethorphan 10 ml PO Q6H PRN 09/09/20 09/09/20 [guaiFENesin DM] LORazepam [Ativan] 0.5 mg PO BID PRN 09/09/20 09/09/20 LORazepam [Ativan] 0.5 mg PO HS 09/09/20 09/09/20 Levothyroxine Sodium [Synthroid] 125 mcg PO DAILY 09/09/20 09/09/20 Nystatin 1 applic TOPICAL BID 09/09/20 09/09/20 Potassium Chloride 10 meq PO DAILY 09/09/20 09/09/20 Promethazine HCl 12.5 mg PO Q8H PRN 09/09/20 09/09/20 amLODIPine [Norvasc] 5 mg PO HS 09/09/20 09/09/20 lisinopriL [Zestril] 5 mg PO 09/09/20 09/09/20 Previous Rx's Medication Instructions Recorded Acetaminophen Tab [Tylenol] 650 mg PO Q4HR PRN tab 03/03/20 Allergies Allergy/AdvReac Type Severity Reaction Status Date / Time sulfamethoxazole Allergy Rash/Hives Verified 09/09/20 07:54 [From Bactrim] trimethoprim [From Bactrim] Allergy Rash/Hives Verified 09/09/20 07:54 Review of Systems ROS Statement: Those systems with pertinent positive or pertinent negative responses have been documented in the HPI. ROS Other: All systems not noted in ROS Statement are negative. Past Medical History Past Medical History: Cancer, Eye Disorder, Memory Impairment, Thyroid Disorder Additional Past Medical History / Comment(s): Prostate CA with radiation/urinary retention/self caths 4 times a day-8am,2p,8pm,2am/ occasional incontinence of urine, frequent UTIs and has confusion with UTIs, stable benign pituitary mass, hyponatremia, chronic anemia, bilateral macular degeneration, hypothyroidism, pt's feet/legs are cold all the time. History of Any Multi-Drug Resistant Organisms: Other MDRO Past Surgical History: Adenoidectomy, Tonsillectomy Additional Past Surgical History / Comment(s): EGD/colonoscopy, bilateral cataract removals/lens implants, midline Past Anesthesia/Blood Transfusion Reactions: No Reported Reaction Past Psychological History: No Psychological Hx Reported Smoking Status: Unknown if ever smoked Past Alcohol Use History: None Reported Past Drug Use History: None Reported - Past Family History Father Family Medical History: Cancer Additional Family Medical History / Comment(s): Colon CA, at 74. Mother Family Medical History: No Reported History, CVA/TIA Additional Family Medical History / Comment(s): Mother of a CVA at the age of 83yrs. General Exam General appearance: alert, in no apparent distress, lethargic, in distress Head exam: Present: atraumatic, normocephalic, normal inspection Eye exam: Present: normal appearance, PERRL, EOMI. Absent: scleral icterus, conjunctival injection, periorbital swelling ENT exam: Present: normal exam, mucous membranes moist Neck exam: Present: normal inspection. Absent: tenderness, meningismus, lymphadenopathy Respiratory exam: Present: normal lung sounds bilaterally. Absent: respiratory distress, wheezes, rales, rhonchi, stridor Cardiovascular Exam: Present: regular rate, normal rhythm, normal heart sounds. Absent: systolic murmur, diastolic murmur, rubs, gallop, clicks GI/Abdominal exam: Present: soft, normal bowel sounds. Absent: distended, tenderness, guarding, rebound, rigid Extremities exam: Present: normal inspection, full ROM, normal capillary refill. Absent: tenderness, pedal edema, joint swelling, calf tenderness Back exam: Present: normal inspection Neurological exam: Present: alert, oriented X3, CN II-XII intact Psychiatric exam: Present: normal affect, normal mood Skin exam: Present: warm, dry, intact, normal color. Absent: rash Course Vital Signs 09/09/20 09/09/20 00:17 01:56 Temperature 98 F Pulse Rate 85 80 Respiratory 17 18 Rate Blood Pressure 104/60 105/58 O2 Sat by Pulse 99 96 Oximetry - Reevaluation(s) Reevaluation #1: Medical record is reviewed Reevaluation patient has no change from baseline Medical Decision Making - Medical Decision Making 84 female of dementia. Patient has known coronavirus coming in for further evaluation regarding coronavirus hypoxia and continued altered mental status. P atient will be admitted for supportive care - Lab Data Result diagrams: 09/09/20 00:36 09/09/20 00:36 Lab Results 09/09/20 09/09/20 09/09/20 Range/Units 00:36 00:36 00:36 WBC 7.2 (3.8-10.6) k/uL RBC 3.92 L (4.30-5.90) m/uL Hgb 12.2 L (13.0-17.5) gm/dL Hct 38.0 L (39.0-53.0) % MCV 97.0 (80.0-100.0) fL MCH 31.1 (25.0-35.0) pg MCHC 32.0 (31.0-37.0) g/dL RDW 14.1 (11.5-15.5) % Plt Count 208 (150-450) k/uL MPV 6.7 Neutrophils % 83 % Lymphocytes % 12 % Monocytes % 2 % Eosinophils % 1 % Basophils % 0 % Neutrophils # 6.0 (1.3-7.7) k/uL Lymphocytes # 0.9 L (1.0-4.8) k/uL Monocytes # 0.2 (0-1.0) k/uL Eosinophils # 0.1 (0-0.7) k/uL Basophils # 0.0 (0-0.2) k/uL Sodium 137 (137-145) mmol/L Potassium 4.6 (3.5-5.1) mmol/L Chloride 103 (98-107) mmol/L Carbon Dioxide 24 (22-30) mmol/L Anion Gap 10 mmol/L BUN 40 H (9-20) mg/dL Creatinine 1.82 H (0.66-1.25) mg/dL Est GFR (CKD-EPI)AfAm 38 (>60 ml/min/1.73 sqM) Est GFR (CKD-EPI)NonAf 33 (>60 ml/min/1.73 sqM) Glucose 123 H (74-99) mg/dL Calcium 8.4 (8.4-10.2) mg/dL Magnesium 2.0 (1.6-2.3) mg/dL Total Bilirubin 0.4 (0.2-1.3) mg/dL AST 46 (17-59) U/L ALT 28 (4-49) U/L Alkaline Phosphatase 60 (38-126) U/L Lactate Dehydrogenase 601 (313-618) U/L Creatine Kinase 92 (55-170) U/L Troponin I <0.012 (0.000-0.034) ng/mL C-Reactive Protein 49.4 H (<10.0) mg/L Total Protein 7.4 (6.3-8.2) g/dL Albumin 3.6 (3.5-5.0) g/dL - EKG Data -: EKG Interpreted by Me (EKG shows sinus rhythm 85 OK 166 QRS 124 QTC 480) - Radiology Data Radiology results: report reviewed (Chest x-rays negative for acute disease), image reviewed Disposition Clinical Impression: Weakness, Altered mental status, COVID-19 Disposition: ADMITTED IP TO THIS HOSP
[2020-09-09 00:48] LABS: Basophils % (A) 0 %; Eosinophils # (A) 0.1 k/uL (0-0.7); Eosinophils % (A) 1 %; HGB 12.2 gm/dL (13.0-17.5); Lymphocytes # (A) 0.9 k/uL (1.0-4.8); Lymphocytes % (A) 12 %; MCH 31.1 pg (25.0-35.0); Mean Platelet Volume 6.7; Monocytes # (A) 0.2 k/uL (0-1.0); Monocytes % (A) 2 %; Neutrophils % (A) 83 %; Platelet Count 208 k/uL (150-450); RBC 3.92 m/uL (4.30-5.90); RDW 14.1 % (11.5-15.5); WBC 7.2 k/uL (3.8-10.6)
[2020-09-09 01:17] LABS: Albumin 3.6 g/dL (3.5-5.0); C Reactive Protein 49.4 mg/L (<10.0); Calcium 8.4 mg/dL (8.4-10.2); Potassium 4.6 mmol/L (3.5-5.1); Total Bilirubin 0.4 mg/dL (0.2-1.3); Total Protein 7.4 g/dL (6.3-8.2)
--- NOTE | 2020-09-09 01:26 | XR ---
EXAM: XR Chest, 1 View CLINICAL HISTORY: ITS.REASON XR Reason: Suspected COVID-19 pneumonia TECHNIQUE: Frontal view of the chest. COMPARISON: February 29, 2020 FINDINGS: Lungs: Lungs are underinflated with some mild bronchovascular crowding. Minimal right basilar subsegmental atelectasis versus infiltrate cannot be excluded. Pleural space: Unremarkable. No pneumothorax. Heart: The cardiac silhouette is mildly enlarged. Mediastinum: Unremarkable. Bones/joints: Unremarkable. Upper abdomen: No pneumoperitoneum under the diaphragm. IMPRESSION: Lungs are underinflated with some mild bronchovascular crowding. Minimal right basilar subsegmental atelectasis versus infiltrate cannot be excluded.
[2020-09-09] MEDS ORDERED: SODIUM CHLORIDE 0.9% 1,000 ML IV ONE (01:34)
[2020-09-09] MEDS ORDERED: ACETAMINOPHEN TAB 325 MG TAB PO PRN (03:57)
[2020-09-09] MEDS ORDERED: ENOXAPARIN 40 MG/0.4 ML SYRINGE SQ SCH (09:00)
[2020-09-09] MEDS ORDERED: PROMETHAZINE 25 MG TAB PO PRN (11:00)
[2020-09-09] MEDS ORDERED: guaiFENesin-DM 100-10MG/5ML 10 ML CUP PO PRN (11:00)
[2020-09-09] MEDS ORDERED: LORazepam 0.5 MG TAB PO PRN (11:00)
[2020-09-09 12:09] LABS: C Reactive Protein 53.6 mg/L (<10.0)
[2020-09-09] MEDS: PANTOPRAZOLE 40 MG TABLET PO SCH (12:54)
[2020-09-09] MEDS: HYDROCORTISONE 20 MG TAB PO SCH (12:54)
[2020-09-09] MEDS: HYDROCORTISONE 10 MG TAB PO SCH (12:54)
[2020-09-09] MEDS: LEVOTHYROXINE 125 MCG TAB PO SCH (12:54)
[2020-09-09] MEDS: CITALOPRAM HYDROBROMIDE 10 MG TAB PO SCH (12:55)
[2020-09-09 14:49] LABS: INR 1.1 (<1.2); Partial Thromboplastin Time 30.9 sec (22.0-30.0); Prothrombin Time 11.4 sec (9.0-12.0)
[2020-09-09] MEDS: SODIUM CHLORIDE 0.9% 1,000 ML IV SCH (14:50)
[2020-09-09] MEDS: HEPARIN SODIUM,PORCINE 5,000 UNIT/ML 1 ML VIAL SQ SCH ×3 (14:54→21:37)
--- NOTE | 2020-09-09 15:30 | US ---
EXAMINATION TYPE: US venous doppler duplex LE BI DATE OF EXAM: 09/09/2020 3:22 PM COMPARISON: NONE CLINICAL HISTORY: dvt. SIDE PERFORMED: Bilateral TECHNIQUE: The lower extremity deep venous system is examined utilizing real time linear array sonog celso with graded compression, doppler sonography and color-flow sonography. VESSELS IMAGED: Common Femoral Vein Deep Femoral Vein Greater Saphenous Vein * Femoral Vein Popliteal Vein Small Saphenous Vein * Proximal Calf Veins, not seen on left, patient unable to adduct leg (* superficial vessels) Right Leg: Negative for DVT Left Leg: Negative for DVT IMPRESSION: 1. Bilateral lower extremity ultrasound negative for deep venous thrombosis.
--- NOTE | 2020-09-09 16:29 | HP ---
HISTORY AND PHYSICAL DATE OF SERVICE: 09/09/2020 CHIEF COMPLAINT: Diarrhea, Covid 19 positive. HISTORY OF PRESENT ILLNESS: This 84-year-old gentleman with a past medical history of multiple medical illnesses including memory impairment, hypothyroidism, history of prostate cancer, radiation, history of adenoidectomy, history of tonsillectomy, being followed by Dr. Mariano in [facility] in the outpatient setting, was complaining of some diarrhea. The patient also had change in mental status. Patient was found to be Covid 19 positive and the patient admitted to the hospital for further evaluation and treatment. Currently the D-dimer elevated at 8.65. The saturations 95% on room air. A chest x- ray done which I personally reviewed showed probably evidence of some infiltrate in the right lower lobe. There is no history of any trauma at this time. A detailed history cannot be taken from the patient because the patient's mental status. Most of the history taken from my discussion with staff and review the chart. PAST MEDICAL HISTORY: History of dementia, history of hypothyroidism, history of prostate cancer, history of adenoidectomy. MEDICATIONS: Medications prior to admission include home medications: 1. Zestril 5 mg p.o. q.h.s. 2. Potassium chloride 10 mEq p.o. daily. 3. Topamax 25 mg p.o. b.i.d. 4. Promethazine 12.5 mg q.8 p.r.n. 5. Prevacid. 6. Celexa. 7. Tylenol. 8. NSAID. 9. Norvasc. 10.Synthroid. 11.Lasix. 12.Cortef. 13.Ativan. 14.Hydrocodone. 15.Doses reviewed. ALLERGIES: BACTRIM. Family history, social history, review of systems could not be taken because of the patient's change in mental. PHYSICAL EXAM: Patient is conscious, confused. Pulse 61. Blood pressure 89/50, respirations 16, temperature 97.7, pulse ox 92% on room air. HEENT is conjunctivae normal. Oral mucosa dry. NECK: No JVD. LUNGS: Breath sounds diminished in the bases. No rhonchi. No crackles. ABDOMEN: Soft, nontender. Legs are no edema. NERVOUS SYSTEM: Diffusely weak. LABS: Creatinine is 1.8, which is worsened from previous levels. WBC7.9, hemoglobin 12.3. D- dimer is 8.65. ASSESSMENT: 1. Acute COVID-19 infection with possible COVID 19 pneumonia on the right lower lobe with possible sepsis, present on admission. 2. Elevated D-dimer, rule out pulmonary embolism. 3. Anemia, normocytic anemia of chronic disease. Increased creatinine with acute renal failure with acute tubular necrosis and prerenal factors. 4. Elevated CRP. 5. History of dementia. 6. Acute on chronic metabolic encephalopathy. 7. Hypothyroidism. 8. History of prostate cancer/radiation. 9. History of frequent recurrent urinary tract infections. 10.History of pituitary mass. 11.History of chronic anemia. 12.History of bilateral macular degeneration. 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 14.History of tonsillectomy. 15.NO CODE, NO CPR, NO VENT. RECOMMENDATIONS AND DISCUSSION: This 84-year-old gentleman who presented with multiple complex medical issues, we will monitor the patient closely, continue the current medications. I recommend CT angio of the chest and continue to monitor. Otherwise a procalcitonin level will be ordered. If it is high, we will consider a course of antibiotics. Otherwise, continue to monitor. Continue the IV fluids to improve renal perfusion. Otherwise, closely follow with multiple consultants including Infectious Disease. Guarded prognosis. Further recommendations to follow. Also recommend Lovenox. A copy of this dictation being forwarded to Dr. Mariano who is the primary care physician. Recommend ultrasound of the legs also. MMODL / IJN: [id number] /
--- NOTE | 2020-09-09 17:16 | CT ---
EXAMINATION TYPE: CT chest wo con DATE OF EXAM: 09/09/2020 COMPARISON: 08/05/2016 HISTORY: 84-year-old male shortness of breath, Positive D-dimer. Pt labs poor for contrast study. Cov id +. TECHNIQUE: Contiguous axial scanning of the chest without IV contrast. Coronal and sagittal reconstru ctions performed. CT DLP: 333.10 mGycm Automated exposure control for dose reduction was used. FINDINGS: Heart normal size without pericardial effusion. LAD and circumflex coronary artery calcifications are present. Ascending aorta aneurysmal at 4.0 cm. Mild atherosclerotic arch calcifications with conventional vess el branching anatomy. Additional aneurysm upper descending thoracic aorta at 3.9 cm. Large caliber to the main right and the pulmonary arteries measuring up to 3.0 cm suggesting underlyi ng pulmonary arterial hypertension. Scattered nonenlarged mediastinal lymph nodes. No thoracic lymphadenopathy by CT size criteria. Scattered calcified pleural plaques are present on both sides and overlying the right hemidiaphragm. Mild centrilobular emphysema strandy scarring or atelectasis in the lung bases. No honeycombing. No c onsolidation or pleural effusion. Visualized upper abdomen shows no gross abnormality. Bones: Degenerative changes right sternoclavicular joint. DISH within the lower thoracic spine with m ild degenerative disc disease. IMPRESSION: Note that this is a noncontrast study. Unable to assess for pulmonary embolus. 1. CALCIFIED PLEURAL PLAQUES COMPATIBLE WITH ASBESTOS RELATED PLEURAL DISEASE. 2. SOME STRANDY SCARRING OR ATELECTASIS AT THE LUNG BASES. NO HONEYCOMBING TO SUGGEST ASBESTOSIS. 3. MINIMAL EMPHYSEMA. UNDERLYING PULMONARY ARTERIAL HYPERTENSION IS SUGGESTED. 4. ASCENDING AORTIC ANEURYSM OF 4.0 CM. UPPER DESCENDING THORACIC AORTA ALSO MILDLY ANEURYSMAL AT 3.9 CM, SIMILAR TO PRIOR.
--- NOTE | 2020-09-09 17:17 | NM ---
EXAMINATION TYPE: NM pul perfusion DATE OF EXAM: 09/09/2020 COMPARISON: Correlation CT same day HISTORY: 84-year-old male COVID positive, shortness of breath, elevated d-dimer. Technique: Following administration of 5.1 mCi Tc 99m MAA. Images obtained post injection. FINDINGS: Perfusion only images are performed due to patient's COVID positive status. There is homogeneous perfusion throughout the lungs without any defect identified. IMPRESSION: Very low probability for pulmonary embolus.
[2020-09-09 18:27] LABS: Amorphous Sediment,Urine Rare /hpf; Appearance,Urine Cloudy (Clear); Bacteria,Urine Few /hpf; Bilirubin,Urine Negative (Negative); Blood,Urine Small (Negative); Color,Urine Yellow; Glucose,Urine (UA) Negative (Negative); Hyaline Casts,Urine 10 /lpf (0-2); Ketones,Urine Negative (Negative); Leukocyte Esterase,Urine Large (Negative); Mucus,Urine Occasional /hpf; Nitrite,Urine Negative (Negative); PH, Urine 5.5 (5.0-8.0); Protein,Urine 1+ (Negative); RBC,Urine 8 /hpf (0-5); Squamous Epithelial Cell,Urine 1 /hpf (0-4); Urobilinogen,Urine <2.0 mg/dL (<2.0); WBC,Urine 53 /hpf (0-5)
[2020-09-09] MEDS ORDERED: LORazepam 0.5 MG TAB PO SCH (21:00)
[2020-09-09] MEDS ORDERED: amLODIPine 5 MG TAB PO SCH (21:00)
[2020-09-09] MEDS ORDERED: lisinopriL 5 MG TAB PO SCH (21:00)
[2020-09-09] MEDS: TOPIRAMATE 25 MG TAB PO SCH (21:49)
[2020-09-09] MEDS: NYSTATIN 100,000UNIT/GM CREAM 30 GM TUBE TOPICAL SCH (21:56)
[2020-09-10] MEDS: SODIUM CHLORIDE 0.9% 1,000 ML IV SCH (04:23)
[2020-09-10] MEDS: LEVOTHYROXINE 125 MCG TAB PO SCH (05:31)
[2020-09-10 06:51] LABS: Basophils % (A) 0 %; Eosinophils % (A) 0 %; HCT 30.1 % (39.0-53.0); Lymphocytes # (A) 1.3 k/uL (1.0-4.8); Lymphocytes % (A) 27 %; MCH 30.8 pg (25.0-35.0); MCHC 31.8 g/dL (31.0-37.0); MCV 96.7 fL (80.0-100.0); Mean Platelet Volume 6.5; Monocytes # (A) 0.3 k/uL (0-1.0); Monocytes % (A) 5 %; Neutrophils # (A) 3.3 k/uL (1.3-7.7); Neutrophils % (A) 66 %; Platelet Count 151 k/uL (150-450); RBC 3.11 m/uL (4.30-5.90)
[2020-09-10 07:01] LABS: HGB 9.6 gm/dL (13.0-17.5)
[2020-09-10] MEDS: CITALOPRAM HYDROBROMIDE 10 MG TAB PO SCH (08:20)
[2020-09-10] MEDS: PANTOPRAZOLE 40 MG TABLET PO SCH (08:20)
[2020-09-10] MEDS: HEPARIN SODIUM,PORCINE 5,000 UNIT/ML 1 ML VIAL SQ SCH (08:20)
[2020-09-10] MEDS: HYDROCORTISONE 20 MG TAB PO SCH (08:21)
[2020-09-10] MEDS: TOPIRAMATE 25 MG TAB PO SCH (08:22)
[2020-09-10] MEDS ORDERED: POTASSIUM CHLORIDE ER 10 MEQ TAB.ER.PRT PO SCH (09:00)
[2020-09-10] MEDS ORDERED: FUROSEMIDE 20 MG TAB PO SCH (09:00)
[2020-09-10 10:10] LABS: African American GFR (CKD) 52.4 (60.0-200.0); Anion Gap 7.1 mmol/L (4.00-12.00); BUN/Creat Ratio 27.14 Ratio (12.00-20.00); Calcium 7.6 mg/dL (8.7-10.3); Carbon Dioxide 22.9 mmol/L (21.6-31.8); Non-African American GFR(CKD) 45.2 (60.0-200.0); Potassium 3.9 mmol/L (3.5-5.5)
[2020-09-10] MEDS ORDERED: dexAMETHasone 2 MG TAB PO SCH (11:00)
[2020-09-10] MEDS ORDERED: ASCORBIC ACID 500 MG TAB PO SCH (11:00)
[2020-09-10] MEDS ORDERED: CHOLECALCIFEROL 1,000 UNIT TAB PO SCH (11:00)
[2020-09-10] MEDS ORDERED: ZINC SULFATE 220 MG CAP PO SCH (11:00)
[2020-09-10 11:29] VITALS: BP 133/70; PULSE 57; RESP 18; TEMP 97.5
[2020-09-10] MEDS: NYSTATIN 100,000UNIT/GM CREAM 30 GM TUBE TOPICAL SCH (11:39)
[2020-09-10] MEDS ORDERED: FOLIC ACID 1 MG TAB PO SCH (12:00)
[2020-09-10] MEDS ORDERED: THIAMINE 100 MG TAB PO SCH (12:00)
[2020-09-10] MEDS ORDERED: MULTIVITAMINS, THERA 1 EACH TAB PO SCH (12:00)
--- NOTE | 2020-09-10 12:31 | P.DS ---
Providers Date of admission: 09/09/20 01:34 Expected date of discharge: 09/10/20 Attending physician: Kristina Gunn Primary care physician: Margarito Mariano [facility] Course: Final diagnosis Acute Covid 19 infection with possible Covid 19 pneumonia on the right lower lobe with possible sepsis, present on admission Elevated d-dimer, ruled out pulmonary embolism Anemia, normocytic anemia of chronic disease. Increased creatinine with acute renal failure with acute tubular necrosis with prerenal factors Elevated CRP History of dementia Acute on chronic metabolic encephalopathy Hypothyroidism History of prostate cancer/radiation history of frequent recurrent urinary tract infections history of pituitary mass history of chronic anemia history of bilateral macular degeneration History of MDR Pseudomonas in the urine history of tonsillectomy No code, no CPR, no vent Discharge disposition Patient is being discharged in a stable condition with guarded prognosis to [facility]. Patient will follow-up with Dr. Mariano upon discharge. Patient will also continue on dexamethasone along with heparin subcu, zinc, and vitamin supplements in the outpatient setting. Total time taken is greater than 35 minutes. Hospital course This is an 84-year-old male who was recently admitted with some diarrhea and change in mental status and was being closely monitored. Diarrhea has since resolved. Patient was also found to be Covid 19 positive and was started on zinc supplements along with vitamin C and D, dexamethasone, and heparin subcu and will continue in the outpatient setting. Patient was given IV hydration and mentation has improved. Patient was also seen and evaluated by speech therapy recommending dysphagia 3 chopped diet with strict aspiration precautions and head of the bed elevated 30-45 at all times along with encouragement and eating and supervision during eating. Patient underwent VQ scan along with CT of the chest with no evidence of pulmonary embolism noted. Patient to continue on heparin subcu twice daily for the next 1 week and then may discontinue and also complete a course of dexamethasone 6 mg daily for the next 8 days. Currently no reports of chest pain, shortness of breath, or palpitations. Patient is afebrile. No reports of nausea or vomiting and patient is tolerating diet. Patient will be discharged to [facility] today. Guarded prognosis. On exam vital signs are stable. Temp is 97.5F, pulse is 57, respirations are 18, blood pressure is 133/70, oxygen saturation is 98% on room air. Cardio S1, S2 are muffled. Respiratory shows diminished breath sounds at the bases with a few scattered rhonchi noted. Abdomen is soft and nontender. Nervous system shows mild diffuse weakness. Please refer to medication reconciliation sheet for a list of medications. Patient Condition at Discharge: Fair Plan - Discharge Summary Discharge Rx Participant: No New Discharge Prescriptions: New Folic Acid 1 mg PO DAILY@1200 tab Heparin Sodium,Porcine [Heparin Sodium] 5,000 unit SQ Q12HR vial dexAMETHasone [Hexadrol] 6 mg PO DAILY 8 Days #24 tab Multivitamins, Thera [Multivitamin (formulary)] 1 each PO DAILY@1200 tab Zinc Sulfate [Orazinc] 220 mg PO DAILY cap Thiamine [Vitamin B-1] 100 mg PO DAILY@1200 tab Ascorbic Acid [Vitamin C] 500 mg PO DAILY tab Cholecalciferol [Vitamin D3 (25 Mcg = 1000 Iu)] 1,000 unit PO DAILY tab Continue Hydrocortisone 20 mg PO QAM Hydrocortisone [Cortef] 10 mg PO DAILY@1400 Topiramate [Topamax] 25 mg PO BID Lansoprazole [Prevacid] 15 mg PO DAILY Citalopram Hydrobromide [CeleXA] 10 mg PO DAILY Acetaminophen Tab [Tylenol] 650 mg PO Q4HR PRN tab PRN Reason: Fever And/ Or Pain Potassium Chloride 10 meq PO DAILY Nystatin 1 applic TOPICAL BID amLODIPine [Norvasc] 5 mg PO HS Levothyroxine Sodium [Synthroid] 125 mcg PO DAILY Furosemide [Lasix] 20 mg PO DAILY Guaifenesin/Dextromethorphan [guaiFENesin DM] 10 ml PO Q6H PRN PRN Reason: Cough Promethazine HCl 12.5 mg PO Q8H PRN PRN Reason: Nausea And Vomiting LORazepam [Ativan] 0.5 mg PO HS #3 tab LORazepam [Ativan] 0.5 mg PO BID PRN #6 tab PRN Reason: Anxiety Discontinued lisinopriL [Zestril] 5 mg PO HS Discharge Medication List Hydrocortisone 20 mg PO QAM 10/26/19 [History] Hydrocortisone [Cortef] 10 mg PO DAILY@1400 11/17/19 [History] Citalopram Hydrobromide [CeleXA] 10 mg PO DAILY 03/01/20 [History] Lansoprazole [Prevacid] 15 mg PO DAILY 03/01/20 [History] Topiramate [Topamax] 25 mg PO BID 03/01/20 [History] Acetaminophen Tab [Tylenol] 650 mg PO Q4HR PRN tab 03/03/20 [Rx] Furosemide [Lasix] 20 mg PO DAILY 09/09/20 [History] Guaifenesin/Dextromethorphan [guaiFENesin DM] 10 ml PO Q6H PRN 09/09/20 [History] Levothyroxine Sodium [Synthroid] 125 mcg PO DAILY 09/09/20 [History] Nystatin 1 applic TOPICAL BID 09/09/20 [History] Potassium Chloride 10 meq PO DAILY 09/09/20 [History] Promethazine HCl 12.5 mg PO Q8H PRN 09/09/20 [History] amLODIPine [Norvasc] 5 mg PO HS 09/09/20 [History] Ascorbic Acid [Vitamin C] 500 mg PO DAILY tab 09/10/20 [Rx] Cholecalciferol [Vitamin D3 (25 Mcg = 1000 Iu)] 1,000 unit PO DAILY tab 09/10/20 [Rx] Folic Acid 1 mg PO DAILY@1200 tab 09/10/20 [Rx] Heparin Sodium,Porcine [Heparin Sodium] 5,000 unit SQ Q12HR vial 09/10/20 [Rx] LORazepam [Ativan] 0.5 mg PO BID PRN #6 tab 09/10/20 [Rx] LORazepam [Ativan] 0.5 mg PO HS #3 tab 09/10/20 [Rx] Multivitamins, Thera [Multivitamin (formulary)] 1 each PO DAILY@1200 tab 09/10/20 [Rx] Thiamine [Vitamin B-1] 100 mg PO DAILY@1200 tab 09/10/20 [Rx] Zinc Sulfate [Orazinc] 220 mg PO DAILY cap 09/10/20 [Rx] dexAMETHasone [Hexadrol] 6 mg PO DAILY 8 Days #24 tab 09/10/20 [Rx] Follow up Appointment(s)/Referral(s): Margarito Mariano MD [Primary Care Provider] - 1-2 days Ambulatory/Diagnostic Orders: Basic Metabolic Panel [LAB.AMB] Time Frame: 3 Days, Location: None Selected Complete Blood Count w/diff [LAB.AMB] Time Frame: 3 Days, Location: None Selected Activity/Diet/Wound Care/Special Instructions: patient is going to [facility] Activity as tolerated Continue dysphasia 3 chopped diet with head of the bed elevated 30-45 at all times one-to-one supervision with meals and encouragement with meals and maintain strict aspiration precautions Continue heparin subcu twice daily for the next one week Follow-up with primary care provider upon discharge Repeat labs in 2-3 days Continue with dexamethasone for the next 8 days to complete the course and then may discontinue Discharge Disposition: TRANSFER TO SNF/ECF
[2020-09-10] MEDS: HYDROCORTISONE 10 MG TAB PO SCH (13:06)
== END 2020-09-10 15:06 ==
LOC: EC 00:10 → 6NMEDSUR 01:34
PROVIDERS: ADMIT Hospitalist; ATTEND Hospitalist
DX: U07.1 COVID-19 (principal); R09.02 Hypoxemia; D63.8 Anemia in other chronic diseases classified elsewhere; N17.0 Acute kidney failure with tubular necrosis; G93.41 Metabolic encephalopathy; R79.82 Elevated C-reactive protein (CRP); R79.1 Abnormal coagulation profile; F03.90 Unspecified dementia, unspecified severity, without behavioral disturbance, psychotic disturbance, mood disturbance, and anxiety; E03.9 Hypothyroidism, unspecified; Z85.46 Personal history of malignant neoplasm of prostate; Z92.3 Personal history of irradiation; Z87.440 Personal history of urinary (tract) infections; Z86.39 Personal history of other endocrine, nutritional and metabolic disease; H35.30 Unspecified macular degeneration; Z90.89 Acquired absence of other organs; Z79.890 Hormone replacement therapy; Z79.891 Long term (current) use of opiate analgesic; Z79.899 Other long term (current) drug therapy; Z88.2 Allergy status to sulfonamides
CPT/HCPCS: 96361 ×3; 96372 ×2; 96360; 99285; 36415; 93005; 92610; 85379; 80053; 80048; 85652; 82550; 83615; 83735; 84484; 85025 ×2; 85610; 85730; 86140; 81001; 84145; 71045; 93970; 71250; 78580; G0378 ×2; A9540; J1644 ×2; J1650; J8540

== ENCOUNTER 2020-09-30 15:09 | Emergency (ER) | payer MEDICARE, BC ==
--- NOTE | 2020-09-30 16:10 | ED ---
General Adult HPI - General Chief complaint: Fall Stated complaint: fall Time Seen by Provider: 09/30/20 15:17 Source: patient, RN notes reviewed Mode of arrival: ambulatory Limitations: no limitations - History of Present Illness Initial comments: 84-year-old male with a past medical history of dementia, prostate cancer, macular degeneration presents to the emergency room for fall. Patient lives in a fdc. Patient was trying to transfer himself from yesterday was bed although he is not supposed to. Patient fell and hit his right side of his face. He does not take blood thinners. Patient denies loss of consciousness. Patient denies any complaints at this time.Patient has no other complaints at this time including shortness of breath, chest pain, abdominal pain, nausea or vomiting, headache, or visual changes. - Related Data Home Medications Medication Instructions Recorded Confirmed Hydrocortisone 20 mg PO QAM 10/26/19 09/30/20 Hydrocortisone [Cortef] 10 mg PO DAILY@1400 11/17/19 09/30/20 Citalopram Hydrobromide [CeleXA] 10 mg PO DAILY 03/01/20 09/30/20 Topiramate [Topamax] 25 mg PO BID 03/01/20 09/30/20 Furosemide [Lasix] 20 mg PO DAILY 09/09/20 09/30/20 Levothyroxine Sodium [Synthroid] 125 mcg PO DAILY 09/09/20 09/30/20 Nystatin 1 applic TOPICAL BID 09/09/20 09/30/20 amLODIPine [Norvasc] 5 mg PO HS@199909/09/20 09/30/20 Cholecalciferol [Vitamin D3 (25 25 mcg PO DAILY 09/30/20 09/30/20 Mcg = 1000 Iu)] LORazepam [Ativan] 0.5 mg PO HS@199909/30/20 09/30/20 LORazepam [Ativan] 0.5 mg PO Q12HR PRN 09/30/20 09/30/20 Multivitamins, Thera [Multivitamin 1 each PO HS@199909/30/20 09/30/20 (formulary)] Pantoprazole [Protonix] 40 mg PO DAILY 09/30/20 09/30/20 Prostat (Unknown Strength) 30 ml PO DAILY 09/30/20 09/30/20 Thiamine [Vitamin B-1] 100 mg PO HS 09/30/20 09/30/20 Previous Rx's Medication Instructions Recorded Acetaminophen Tab [Tylenol] 650 mg PO Q4HR PRN tab 03/03/20 Folic Acid 1 mg PO DAILY@1200 tab 09/10/20 Allergies Allergy/AdvReac Type Severity Reaction Status Date / Time sulfamethoxazole Allergy Rash/Hives Verified 09/30/20 15:45 [From Bactrim] trimethoprim [From Bactrim] Allergy Rash/Hives Verified 09/30/20 15:45 Review of Systems ROS Statement: Those systems with pertinent positive or pertinent negative responses have been documented in the HPI. ROS Other: All systems not noted in ROS Statement are negative. Past Medical History Past Medical History: Cancer, Eye Disorder, Memory Impairment, Thyroid Disorder Additional Past Medical History / Comment(s): Prostate CA with radiation/urinary retention/self caths 4 times a day-8am,2p,8pm,2am/ occasional incontinence of urine, frequent UTIs and has confusion with UTIs, stable benign pituitary mass, hyponatremia, chronic anemia, bilateral macular degeneration, hypothyroidism, pt's feet/legs are cold all the time. History of Any Multi-Drug Resistant Organisms: Other MDRO Past Surgical History: Adenoidectomy, Tonsillectomy Additional Past Surgical History / Comment(s): EGD/colonoscopy, bilateral cataract removals/lens implants, midline Past Anesthesia/Blood Transfusion Reactions: No Reported Reaction Past Psychological History: No Psychological Hx Reported Smoking Status: Unknown if ever smoked Past Alcohol Use History: None Reported Past Drug Use History: None Reported - Past Family History Father Family Medical History: Cancer Additional Family Medical History / Comment(s): Colon CA, at 74. Mother Family Medical History: No Reported History, CVA/TIA Additional Family Medical History / Comment(s): Mother of a CVA at the age of 83yrs. General Exam Limitations: no limitations General appearance: alert Head exam: Present: atraumatic, normal inspection Eye exam: Present: PERRL, EOMI, periorbital swelling (Patient has periorbital edema noted to the right eye). Absent: scleral icterus, conjunctival injection Expanded Eyelids: Normal Inspection: Left, Laceration: Left, Stye: Left, Erythema: Left, Swelling: Right Pupils: Regular, Round: Bilateral Sclera/Conjunctival: Normal Inspection: Bilateral IOP (R) in mmH IOP (L) in mmH IOP measured with: Tonopen Course Vital Signs 09/30/20 15:12 Temperature 98.6 F Pulse Rate 62 Respiratory 20 Rate Blood Pressure 130/58 O2 Sat by Pulse 100 Oximetry Medical Decision Making - Medical Decision Making HPI physical exam as documented. Patient has a significant right periorbital hematoma. Pressures are good in the right eye. Patient's extraocular movements are intact. Given fall CT brain was obtained which showed no acute posttraumatic intracranial process. CT cervical spine shows no acute osseous abnormality. CT of the orbit shows a soft tissue injury without acute fracture. At this time patient will be discharged to the fdc. He will return here for any worsening symptoms. Disposition Clinical Impression: Periorbital hematoma of right eye Disposition: HOME SELF-CARE Condition: Good Instructions (If sedation given, give patient instructions): [facility] (ED) Additional Instructions: Please follow-up with primary care doctor in one to 2 days. Return to the emergency room for any worsening symptoms. Is patient prescribed a controlled substance at d/c from ED?: No Referrals: Margarito Mariano MD [Primary Care Provider] - 1-2 days Time of Disposition: 17:15
--- NOTE | 2020-09-30 16:45 | CT ---
EXAMINATION TYPE: CT brain leah wo con DATE OF EXAM: 09/30/2020 COMPARISON: 02/29/2020 HISTORY: Fall today, right orbital injury. CT DLP: 922.2 mGycm, Automated exposure control for dose reduction was used. CONTRAST: Patient injected with 0 mL of Isovue 300. CT of the brain is performed utilizing 3 mm thick sections through the posterior fossa and 3 mm thick sections through the remaining calvarium. Study is performed within 24 hours of arrival to the hospital. There is soft tissue swelling over the right orbit and supraorbital region. No underlying fracture is evident. Nasal bones appear intact. Zygomatic arches intact. Orbit appears normal. No abnormal hyperdensity is present to suggest an acute intracranial hemorrhage. No mass lesion is evident. No acute infarcts are evident. Periventricular white matter hypodensity is present compatible with m icrovascular ischemic change. Ventricles and sulci are prominent for the patient age. There is prominence of the sella with soft tissue filling. Follow-up MRI of the pituitary is recommen ded macroadenoma is not excluded. Other etiologies could be considered within the differential Paranasal sinuses and mastoid air cells within the [id number] are clear. IMPRESSIONS: 1. No acute post traumatic intracranial process. 2. Fullness through the sella with soft tissue expansion. MRI with contrast recommended for further e valuate the pituitary. This was present previously. 3. Atrophy with periventricular white matter ischemic type changes. CT cervical spine. COMPARISON: None CT of the cervical spine is performed in the axial plane at 2 mm thick sections. Reconstructed image s in the coronal, and sagittal plane are reviewed on the computer. No acute fractures are evident. Vertebral body alignment is normal. Disc space narrowing is present C5-6. Minimal anterolisthesis of C6 on C7 may be present. Mild cloth mender ior disc space narrowing is present C3-4 C4-5. Vertebral body heights are preserved. No spinal canal stenosis is evident. Foraminal stenosis from uncovertebral joint hypertrophy is present C5-6 bilaterally. IMPRESSIONS: 1. Minimal grade 1 spondylolisthesis of C6 anteriorly on C7. 2. Degenerative disc changes C5-6. Uncovertebral joint hypertrophy is contributing to foraminal narro wing at this level. 3. Additional milder degenerative disc changes within the cervical spine. 4. No acute osseous abnormality.
--- NOTE | 2020-09-30 17:01 | CT ---
EXAMINATION TYPE: CT orbits wo con DATE OF EXAM: 09/30/2020 COMPARISON: CT brain same date HISTORY: Trauma and pain CT DLP: 922.2 mGycm Automated exposure control for dose reduction was used. Helical imaging through the orbits. FINDINGS: There is asymmetric increased soft tissue over the right orbit consistent with trauma, soft tissue in jury. There is no air-fluid level in the paranasal sinuses to suggest acute hemorrhage. Ostiomeatal u nits are patent. There is a dorian bullosa on the left. Orbits are intact. No evident fracture. There is remodeling of the temporomandibular joints greater on the left than on the right significant for osteoarthritic change. Cerebral vascular calcifications are present. Minimal inflammatory change pres ent within the sphenoid sinus. IMPRESSION: SOFT TISSUE INJURY. NO ACUTE FRACTURE OF THE ORBITS.
[2020-09-30 18:33] VITALS: BP 132/77; PULSE 64; RESP 18; TEMP 98.1
== END 2020-09-30 18:31 | disposition home or self-care (01) ==
LOC: EC 15:09
DX: S00.11XA Contusion of right eyelid and periocular area, initial encounter (principal); E03.9 Hypothyroidism, unspecified; E07.9 Disorder of thyroid, unspecified; F03.90 Unspecified dementia, unspecified severity, without behavioral disturbance, psychotic disturbance, mood disturbance, and anxiety; Z79.890 Hormone replacement therapy; Z79.899 Other long term (current) drug therapy; Z88.1 Allergy status to other antibiotic agents; Z88.2 Allergy status to sulfonamides; Z85.46 Personal history of malignant neoplasm of prostate; W18.09XA Striking against other object with subsequent fall, initial encounter
CPT/HCPCS: 70450; 70480; 72125; 99284

== ENCOUNTER 2021-02-05 18:57 | Inpatient (IN) | payer MEDICARE, BC, OTHER ==
--- NOTE | 2021-02-05 20:27 | XR ---
EXAMINATION TYPE: XR chest 1V DATE OF EXAM: 02/05/2021 COMPARISON: 09/09/2020 HISTORY: Hypoxemia TECHNIQUE: Single view FINDINGS: There is some mild infiltrate and atelectasis in the right lung. There is elevation of the right diaphragm. There is no heart failure. There are no hilar masses. Bony thorax appears intact. IMPRESSION: There is some new mild infiltrate and atelectasis in the right lower lobe compared to old exam. No heart failure seen.
[2021-02-05 20:50] LABS: Basophils % (A) 0 %; Eosinophils # (A) 0.1 k/uL (0-0.7); Eosinophils % (A) 1 %; HCT 27.5 % (39.0-53.0); HGB 8.7 gm/dL (13.0-17.5); Hypochromasia Slight; Lymphocytes # (A) 0.5 k/uL (1.0-4.8); Lymphocytes % (A) 5 %; MCH 30.9 pg (25.0-35.0); MCHC 31.8 g/dL (31.0-37.0); MCV 97.3 fL (80.0-100.0); Mean Platelet Volume 7.2; Monocytes # (A) 0.4 k/uL (0-1.0); Monocytes % (A) 4 %; Neutrophils # (A) 9.8 k/uL (1.3-7.7); Neutrophils % (A) 90 %; Platelet Count 122 k/uL (150-450); RBC 2.82 m/uL (4.30-5.90); RDW 14.7 % (11.5-15.5); WBC 10.9 k/uL (3.8-10.6)
[2021-02-05 20:56] LABS: Appearance,Urine Cloudy (Clear); Bacteria,Urine Moderate /hpf; Bilirubin,Urine Negative (Negative); Blood,Urine Moderate (Negative); Color,Urine Light Yellow; Glucose,Urine (UA) Negative (Negative); Ketones,Urine Negative (Negative); Leukocyte Esterase,Urine Large (Negative); Mucus,Urine Rare /hpf; Nitrite,Urine Positive (Negative); Protein,Urine Trace (Negative); RBC,Urine 4 /hpf (0-5); Specific Gravity,Urine 1.014 (1.001-1.035); Urobilinogen,Urine <2.0 mg/dL (<2.0); WBC,Urine 134 /hpf (0-5)
[2021-02-05 21:09] LABS: INR 1.1 (<1.2); Partial Thromboplastin Time 26.1 sec (22.0-30.0); Prothrombin Time 11.2 sec (9.0-12.0)
[2021-02-05] MEDS ORDERED: PIPERACILLIN-TAZOBACTAM 3.375 GM in SODIUM CHLORIDE 0.9% 100 ML IVPB STA (21:14)
[2021-02-05 21:17] LABS: Albumin 2.6 g/dL (3.5-5.0); Calcium 8.4 mg/dL (8.4-10.2); Potassium 4.2 mmol/L (3.5-5.1); Total Bilirubin 0.2 mg/dL (0.2-1.3); Total Protein 5.5 g/dL (6.3-8.2)
[2021-02-05] MEDS ORDERED: SODIUM CHLORIDE 0.9% 500 ML 500 ML IV ONE (21:32)
--- NOTE | 2021-02-05 21:53 | ED ---
General Adult HPI - General Chief complaint: Urogenital Stated complaint: UTI Time Seen by Provider: 02/05/21 19:07 Source: patient, EMS Mode of arrival: EMS Limitations: altered mental status, physical limitation - History of Present Illness Initial comments: 85 year-old male patient was brought via EMS from [facility] for lethargy, weakness, abnormal labs, and UTI. Patient is alert during exam, oriented x1 only which is reportedly his baseline. He has no complaints and states he feels well. Very poor historian. Review of records shows that patients BUN 85, creatinine 3.10 today. This is increased from BUN 69 and Cr 1.50 on 02/02/21. Patient has chronic indwelling salgado, concerned for UTI due to mental status. No fevers or vomiting. - Related Data Home Medications Medication Instructions Recorded Confirmed Hydrocortisone 20 mg PO QA 10/26/19 09/30/20 Hydrocortisone [Cortef] 10 mg PO DAILY@1400 11/17/19 09/30/20 Citalopram Hydrobromide [CeleXA] 10 mg PO DAILY 03/01/20 09/30/20 Topiramate [Topamax] 25 mg PO BID 03/01/20 09/30/20 Furosemide [Lasix] 20 mg PO DAILY 09/09/20 09/30/20 Levothyroxine Sodium [Synthroid] 125 mcg PO DAILY 09/09/20 09/30/20 Nystatin 1 applic TOPICAL BID 09/09/20 09/30/20 amLODIPine [Norvasc] 5 mg PO HS@199909/09/20 09/30/20 Cholecalciferol [Vitamin D3 (25 25 mcg PO DAILY 09/30/20 09/30/20 Mcg = 1000 Iu)] LORazepam [Ativan] 0.5 mg PO HS@199909/30/20 09/30/20 LORazepam [Ativan] 0.5 mg PO Q12HR PRN 09/30/20 09/30/20 Multivitamins, Thera [Multivitamin 1 each PO HS@199909/30/20 09/30/20 (formulary)] Pantoprazole [Protonix] 40 mg PO DAILY 09/30/20 09/30/20 Prostat (Unknown Strength) 30 ml PO DAILY 09/30/20 09/30/20 Thiamine [Vitamin B-1] 100 mg PO HS 09/30/20 09/30/20 Previous Rx's Medication Instructions Recorded Acetaminophen Tab [Tylenol] 650 mg PO Q4HR PRN tab 03/03/20 Folic Acid 1 mg PO DAILY@1200 tab 09/10/20 Allergies Allergy/AdvReac Type Severity Reaction Status Date / Time sulfamethoxazole Allergy Rash/Hives Verified 02/05/21 19:06 [From Bactrim] trimethoprim [From Bactrim] Allergy Rash/Hives Verified 02/05/21 19:06 Review of Systems ROS Statement: Those systems with pertinent positive or pertinent negative responses have been documented in the HPI. ROS Other: All systems not noted in ROS Statement are negative. Past Medical History Past Medical History: Cancer, Dementia, Eye Disorder, Memory Impairment, Thyroid Disorder Additional Past Medical History / Comment(s): Prostate CA with radiation/urinary retention/self caths 4 times a day-8am,2p,8pm,2am/ occasional incontinence of urine, frequent UTIs and has confusion with UTIs, stable benign pituitary mass, hyponatremia, chronic anemia, bilateral macular degeneration, hypothyroidism, pt's feet/legs are cold all the time. History of Any Multi-Drug Resistant Organisms: Other MDRO Past Surgical History: Adenoidectomy, Tonsillectomy Additional Past Surgical History / Comment(s): EGD/colonoscopy, bilateral cataract removals/lens implants, midline Past Anesthesia/Blood Transfusion Reactions: No Reported Reaction Past Psychological History: No Psychological Hx Reported Smoking Status: Unknown if ever smoked Past Alcohol Use History: None Reported Past Drug Use History: None Reported - Past Family History Father Family Medical History: Cancer Additional Family Medical History / Comment(s): Colon CA, at 74. Mother Family Medical History: No Reported History, CVA/TIA Additional Family Medical History / Comment(s): Mother of a CVA at the age of 83yrs. General Exam Limitations: altered mental status, physical limitation General appearance: alert, in no apparent distress, other (Physical well- developed, well-nourished adult male patient in no acute distress. Vital signs upon presentation temperature 98.5F, pulse 63, respirations 18, blood pressure 94/55, pulse ox 90% on room air.) Eye exam: Present: normal appearance, PERRL, EOMI. Absent: scleral icterus, conjunctival injection, periorbital swelling ENT exam: Present: normal exam, normal oropharynx, mucous membranes moist Respiratory exam: Present: normal lung sounds bilaterally. Absent: respiratory distress, wheezes, rales, rhonchi, stridor Cardiovascular Exam: Present: regular rate, normal rhythm, normal heart sounds. Absent: systolic murmur, diastolic murmur, rubs, gallop, clicks GI/Abdominal exam: Present: soft, normal bowel sounds. Absent: distended, tenderness, guarding, rebound, rigid Neurological exam: Present: alert, CN II-XII intact. Absent: oriented X3 (Oriented 1) Psychiatric exam: Present: normal affect, normal mood Skin exam: Present: warm, dry, intact, normal color. Absent: rash Course Vital Signs 02/05/21 02/05/21 02/05/21 18:59 20:37 21:59 Temperature 98.5 F Pulse Rate 63 55 L 52 L Respiratory 18 16 18 Rate Blood Pressure 94/55 106/63 109/62 O2 Sat by Pulse 90 L 95 95 Oximetry EKG Findings - EKG Comments: EKG Findings:: EKG obtained at 2014 shows sinus bradycardia ventricular 57, urine 170, QR sabianist 142, QTc 466, QTc 453. There does appear to be a right bundle branch block, which was present on previous EKG. Medical Decision Making - Medical Decision Making 85-year-old male patient presents to the emergency department today for evaluation of also UTI, lethargy, altered mental status, and abnormal labs. Physical examination is unremarkable. He is confused oriented 1 only which apparently is his baseline. Labs reviewed today revealed white blood cell count at 10.9, hemoglobin is 8.7, sodium 136, BUN 115, creatinine 3.36. Potassium is normal at 4.2. Urinalysis did show trace protein, moderate blood, positive n itrite, large leukocyte esterase, white blood cells 134, moderate white blood cell clumps, moderate bacteria, rare mucous. Patient was started on Zosyn as she does have history of pseudomonas aeruginosa on previous urine culture. He also had possible infiltrate on x-ray of the chest. Admitted to the hospital for further evaluation and monitoring. Case discussed with my attending Dr. Elmore. - Lab Data Result diagrams: 02/05/21 20:21 02/05/21 20:21 Lab Results 06/05/21 06/05/21 06/05/21 Range/Units 20:21 20:21 20:21 WBC 10.9 H (3.8-10.6) k/uL RBC 2.82 L (4.30-5.90) m/uL Hgb 8.7 L (13.0-17.5) gm/dL Hct 27.5 L (39.0-53.0) % MCV 97.3 (80.0-100.0) fL MCH 30.9 (25.0-35.0) pg MCHC 31.8 (31.0-37.0) g/dL RDW 14.7 (11.5-15.5) % Plt Count 122 L (150-450) k/uL MPV 7.2 Neutrophils % 90 % Lymphocytes % 5 % Monocytes % 4 % Eosinophils % 1 % Basophils % 0 % Neutrophils # 9.8 H (1.3-7.7) k/uL Lymphocytes # 0.5 L (1.0-4.8) k/uL Monocytes # 0.4 (0-1.0) k/uL Eosinophils # 0.1 (0-0.7) k/uL Basophils # 0.0 (0-0.2) k/uL Hypochromasia Slight PT 11.2 (9.0-12.0) sec INR 1.1 (<1.2) APTT 26.1 (22.0-30.0) sec Sodium (137-145) mmol/L Potassium (3.5-5.1) mmol/L Chloride (98-107) mmol/L Carbon Dioxide (22-30) mmol/L Anion Gap mmol/L BUN (9-20) mg/dL Creatinine (0.66-1.25) mg/dL Est GFR (CKD-EPI)AfAm (>60 ml/min/1.73 sqM) Est GFR (CKD-EPI)NonAf (>60 ml/min/1.73 sqM) Glucose (74-99) mg/dL Plasma Lactic Acid [place] (0.7-2.0) mmol/L Calcium (8.4-10.2) mg/dL Total Bilirubin (0.2-1.3) mg/dL AST (17-59) U/L ALT (4-49) U/L Alkaline Phosphatase (38-126) U/L Total Protein (6.3-8.2) g/dL Albumin (3.5-5.0) g/dL Urine Color Light Yellow Urine Appearance Cloudy (Clear) Urine pH 6.0 (5.0-8.0) Ur Specific [place] 1.014 (1.001-1.035) Urine Protein Trace H (Negative) Urine Glucose (UA) Negative (Negative) Urine Ketones Negative (Negative) Urine Blood Moderate H (Negative) Urine Nitrite Positive (Negative) Urine Bilirubin Negative (Negative) Urine Urobilinogen <2.0 (<2.0) mg/dL Ur Leukocyte Esterase Large H (Negative) Urine RBC 4 (0-5) /hpf Urine WBC 134 H (0-5) /hpf Urine WBC Clumps Moderate H (None) /hpf Urine Bacteria Moderate H (None) /hpf Urine Mucus Rare H (None) /hpf 02/05/21 02/05/21 Range/Units 20:21 20:21 WBC (3.8-10.6) k/uL RBC (4.30-5.90) m/uL Hgb (13.0-17.5) gm/dL Hct (39.0-53.0) % MCV (80.0-100.0) fL MCH (25.0-35.0) pg MCHC (31.0-37.0) g/dL RDW (11.5-15.5) % Plt Count (150-450) k/uL MPV Neutrophils % % Lymphocytes % % Monocytes % % Eosinophils % % Basophils % % Neutrophils # (1.3-7.7) k/uL Lymphocytes # (1.0-4.8) k/uL Monocytes # (0-1.0) k/uL Eosinophils # (0-0.7) k/uL Basophils # (0-0.2) k/uL Hypochromasia PT (9.0-12.0) sec INR (<1.2) APTT (22.0-30.0) sec Sodium 136 L (137-145) mmol/L Potassium 4.2 (3.5-5.1) mmol/L Chloride 102 (98-107) mmol/L Carbon Dioxide 27 (22-30) mmol/L Anion Gap 7 mmol/L BUN 115 H* (9-20) mg/dL Creatinine 3.36 H (0.66-1.25) mg/dL Est GFR (CKD-EPI)AfAm 18 (>60 ml/min/1.73 sqM) Est GFR (CKD-EPI)NonAf 16 (>60 ml/min/1.73 sqM) Glucose 111 H (74-99) mg/dL Plasma Lactic Acid [place] 1.2 (0.7-2.0) mmol/L Calcium 8.4 (8.4-10.2) mg/dL Total Bilirubin 0.2 (0.2-1.3) mg/dL AST 134 H (17-59) U/L ALT 52 H (4-49) U/L Alkaline Phosphatase 76 (38-126) U/L Total Protein 5.5 L (6.3-8.2) g/dL Albumin 2.6 L (3.5-5.0) g/dL Urine Color Urine Appearance (Clear) Urine pH (5.0-8.0) Ur Specific [place] (1.001-1.035) Urine Protein (Negative) Urine Glucose (UA) (Negative) Urine Ketones (Negative) Urine Blood (Negative) Urine Nitrite (Negative) Urine Bilirubin (Negative) Urine Urobilinogen (<2.0) mg/dL Ur Leukocyte Esterase (Negative) Urine RBC (0-5) /hpf Urine WBC (0-5) /hpf Urine WBC Clumps (None) /hpf Urine Bacteria (None) /hpf Urine Mucus (None) /hpf - Radiology Data Radiology results: report reviewed, image reviewed Mild infiltrate and atelectasis right lower lobe compared to old exam. No heart failure. Disposition Clinical Impression: UTI (urinary tract infection), Acute on chronic renal failure, Anemia Disposition: ADMITTED IP TO THIS [facility] Condition: Serious Referrals: Margarito Mariano MD [Primary Care Provider] - 1-2 days Decision to Admit Reason: Admit from EC Decision Date: 02/05/21 Decision Time: 22:21
[2021-02-05] MEDS: SODIUM CHLORIDE 0.9% 1,000 ML IV SCH (21:55)
[2021-02-05] MEDS ORDERED: NALOXONE 0.4 MG/ML 1 ML VIAL IV PRN (22:21)
[2021-02-05] MEDS ORDERED: ONDANSETRON 4 MG/2 ML VIAL IVP PRN (22:21)
[2021-02-06] MEDS: PIPERACILLIN-TAZOBACTAM 3.375 GM in SODIUM CHLORIDE 0.9% 100 ML IVPB SCH ×3 (06:28→19:48)
[2021-02-06 07:31] LABS: Basophils % (A) 0 %; Eosinophils # (A) 0.2 k/uL (0-0.7); Eosinophils % (A) 2 %; HCT 30.7 % (39.0-53.0); HGB 9.8 gm/dL (13.0-17.5); Hypochromasia Moderate; Lymphocytes # (A) 0.8 k/uL (1.0-4.8); Lymphocytes % (A) 9 %; MCH 31.5 pg (25.0-35.0); MCV 98.5 fL (80.0-100.0); Mean Platelet Volume 7.3; Monocytes # (A) 0.4 k/uL (0-1.0); Monocytes % (A) 4 %; Neutrophils # (A) 8.2 k/uL (1.3-7.7); Neutrophils % (A) 84 %; Platelet Count 106 k/uL (150-450); RBC 3.12 m/uL (4.30-5.90); RDW 14.5 % (11.5-15.5); WBC 9.7 k/uL (3.8-10.6)
[2021-02-06 07:48] LABS: Calcium 8.2 mg/dL (8.4-10.2); Potassium 4.7 mmol/L (3.5-5.1)
--- NOTE | 2021-02-06 11:49 | P.NPCON ---
History of Present Illness - Reason for Consult Consult date: 02/06/21 acute renal failure - Chief Complaint Acute kidney injury - History of Present Illness 85-year-old male group home resident who is being seen because of acute kidney injury. He came in because of worsening of mental status he has underlying dementia. History of self-catheterization, history of prostate cancer recurrent UTI. His med list includes hydrocortisone, and previously in 2016 he had low cortisol levels and responded to ACTH stimulation suggesting adrenal insufficiency Past Medical History Past Medical History: Cancer, Dementia, Eye Disorder, Memory Impairment, Thyroid Disorder Additional Past Medical History / Comment(s): Prostate CA with radiation/urinary retention/self caths 4 times a day-8am,2p,8pm,2am/ occasional incontinence of urine, frequent UTIs and has confusion with UTIs, stable benign pituitary mass, hyponatremia, chronic anemia, bilateral macular degeneration, hypothyroidism, pt's feet/legs are cold all the time. History of Any Multi-Drug Resistant Organisms: Other MDRO Past Surgical History: Adenoidectomy, Tonsillectomy Additional Past Surgical History / Comment(s): EGD/colonoscopy, bilateral cataract removals/lens implants, midline Past Anesthesia/Blood Transfusion Reactions: No Reported Reaction Past Psychological History: No Psychological Hx Reported Smoking Status: Unknown if ever smoked Past Alcohol Use History: None Reported Past Drug Use History: None Reported - Past Family History Father Family Medical History: Cancer Additional Family Medical History / Comment(s): Colon CA, at 74. Mother Family Medical History: No Reported History, CVA/TIA Additional Family Medical History / Comment(s): Mother of a CVA at the age of 83yrs. Medications and Allergies Home Medications Medication Instructions Recorded Confirmed Type Hydrocortisone 20 mg PO DAILY 10/26/19 02/06/21 History Hydrocortisone [Cortef] 10 mg PO HS 11/17/19 02/06/21 History Topiramate [Topamax] 25 mg PO BID 03/01/20 02/06/21 History Furosemide [Lasix] 60 mg PO BID 09/09/20 02/06/21 History Levothyroxine Sodium [Synthroid] 125 mcg PO DAILY 09/09/20 02/06/21 History amLODIPine [Norvasc] 5 mg PO HS@199909/09/20 02/06/21 History LORazepam [Ativan] 0.5 mg PO HS@199909/30/20 02/06/21 History LORazepam [Ativan] 0.5 mg PO Q6H PRN 09/30/20 02/06/21 History Multivitamins, Thera [Multivitamin 1 tab PO HS 09/30/20 02/06/21 History (formulary)] Pantoprazole [Protonix] 40 mg PO DAILY 09/30/20 02/06/21 History Prostat (Unknown Strength) 30 ml PO BID 09/30/20 02/06/21 History Acetaminophen Tab [Tylenol] 650 mg PO Q6H PRN 02/06/21 02/06/21 History Atorvastatin [Lipitor] 40 mg PO HS@199902/06/21 02/06/21 History Benzocaine [Anbesol] 1 applic MUCOUS MEM TID 02/06/21 02/06/21 History Erythromycin Ophth Oint [Romycin 1 strip BOTH EYES BID 02/06/21 02/06/21 History Ophth Oint] Melatonin 6 mg PO HS PRN 02/06/21 02/06/21 History Potassium Chloride ER [K-Dur 10] 20 meq PO DAILY 02/06/21 02/06/21 History Sennosides [Senna] 17.2 mg PO HS 02/06/21 02/06/21 History Sertraline [Zoloft] 100 mg PO DAILY@0700 02/06/21 02/06/21 History polyethylene glycoL 3350 17 gm PO MOWEFR 02/06/21 02/06/21 History [Polyethylene Glycol 3350] Allergies Allergy/AdvReac Type Severity Reaction Status Date / Time sulfamethoxazole Allergy Rash/Hives Verified 02/06/21 10:41 [From Bactrim] trimethoprim [From Bactrim] Allergy Rash/Hives Verified 02/06/21 10:41 Physical Exam Vitals: Vital Signs Temp Pulse Resp BP Pulse Ox 02/06/21 09:37 97.9 F 70 18 114/58 97 02/06/21 07:00 62 20 101/52 97 02/06/21 06:00 56 L 20 97/52 97 02/06/21 05:00 56 L 18 105/59 97 02/06/21 04:00 60 20 106/76 98 02/06/21 03:00 53 L 18 101/53 97 02/06/21 02:00 57 L 20 100/58 97 02/06/21 01:06 115/87 02/05/21 23:46 55 L 16 102/60 95 02/05/21 21:59 52 L 18 109/62 95 02/05/21 20:37 55 L 16 106/63 95 02/05/21 18:59 98.5 F 63 18 94/55 90 L Intake and Output 02/05/21 02/06/21 02/06/21 22:59 06:59 14:59 Output Total 1000 Balance -1000 Output: Urine 1000 Other: Weight 95.254 kg On examination is awake alert but disoriented and repeats the same answer for AND sats HEENT exam no JVP neck is supple no facial asymmetry Lungs are clear to auscultation fair air entry bilaterally Heart sounds unremarkable for any murmur rub gallop Abdomen soft nontender Extremity exam was no edema Neurologically awake alert but disoriented Results - Lab Results Most recent lab results Calcium 8.2 mg/dL (8.4-10.2) L 02/06/21 07:07 02/06/21 07:07 02/06/21 07:07 Assessment and Plan Assessment: Impression 1. Acute kidney injury secondary to low blood pressure poor intake brought on by recurrent UTI 2. Chronic kidney disease creatinine 1.4 as of 09/10/2020 likely secondary to nephrosclerosis. 3. History of recurrent UTI with urinalysis suggestive of UTI, antibiotics have been started. 4. Low platelet count, cause not clear chronic, up and down. 5. Anemia of malignancy 8.7 but this morning is 9.8, rule out iron deficiency 6. Dementia Recommendations 1. Change IV fluid from normal center lactated Ringer's at 75 an hour 2. Appropriate antibiotics once urine sensitivities back 3. Will watch his labs. 4. Maintain hydrocortisone because of previous history of adrenal insufficiency. Hydrocortisone 50 g IV 1 dose and start by mouth 10 mg twice a day
[2021-02-06] MEDS ORDERED: HYDROCORTISONE SUCCINATE 100 MG/2 ML VIAL IV STA (11:50)
[2021-02-06] MEDS ORDERED: HYDROCORTISONE 10 MG TAB PO SCH (12:00)
[2021-02-06] MEDS ORDERED: SODIUM CHLORIDE 0.9% 500 ML 500 ML IV STA (13:00)
[2021-02-06] MEDS: SODIUM CHLORIDE 0.9% 1,000 ML IV SCH (14:42)
[2021-02-06] MEDS ORDERED: ACETAMINOPHEN TAB 325 MG TAB PO PRN (15:39)
[2021-02-06] MEDS: BENZOCAINE MUCOUS MEM SCH ×2 (17:19→19:50)
[2021-02-06] MEDS: FUROSEMIDE 20 MG TAB PO SCH (17:28)
--- NOTE | 2021-02-06 19:24 | HP ---
HISTORY AND PHYSICAL DATE OF SERVICE: 02/06/2021. CHIEF COMPLAINT: Change in mental status and weakness. HISTORY OF PRESENT ILLNESS: This 85-year-old gentleman with a past history of dementia, history of prostate disorder, memory impairment, prostate cancer, radiation, history of tonsillectomy, being followed Dr. Mariano in the [facility], was admitted with weakness. The patient also had lethargy. The patient also has abnormal labs. The patient suspected of SP UTI. Patient admitted for further evaluation. Patient started on broad-spectrum IV antibiotics. Gram-negative bacilli being grown from the culture. The patient unable to give coherent history. Most of history is taken from my discussion with staff and review of the chart at this time. There is no history of any trauma. PAST MEDICAL HISTORY: Dementia, history of memory impairment, hypothyroidism, history of prostate cancer. MEDICATIONS: Home medications are reviewed and include: Polyethylene glycol, Norvasc, Topamax, Zoloft, K-Dur, Protonix, multivitamin, melatonin, Synthroid, Ativan, Cortef, Lasix, Romycin, Anbesol, Lipitor and Tylenol. ALLERGIES: BACTRIM. FAMILY HISTORY: Family history of colon cancer in the family. SOCIAL HISTORY: Previous history of smoking. REVIEW OF SYSTEMS: Could not be taken because of the patient's change in mental status. PHYSICAL EXAMINATION: Patient is conscious, arousable, confused. Pulse 71. Blood pressure 107/59, respiration 17, temperature 97.2, pulse ox 96% on room air. HEENT: Conjunctivae normal. NECK: No JVD. CARDIOVASCULAR: S1, S2 muffled. RESPIRATORY: Breath sounds diminished in the bases. A few scattered rhonchi and crackles. ABDOMEN: Soft, nontender. No mass palpable. LEGS are no edema, no swelling. NERVOUS SYSTEM: Diffusely weak. SKIN: No ulcer, no rash. No bleeding. LABS: WBC 9.2, hemoglobin 9.8, platelets 106, and creatinine is 2.91. ASSESSMENT: 1. Acute urinary tract infection with sepsis on presentation. 2. Change in mental status, acute on chronic metabolic encephalopathy. 3. Increased WBC, secondary to sepsis. 4. Thrombocytopenia. 5. Anemia, normocytic anemia of chronic disease. 6. Hyponatremia. 7. Acute renal failure, acute tubular necrosis. 8. Chronic kidney stage 3 baseline possibly. 9. Elevated AST/ALT possibly secondary to sepsis secondary to gram-negative Bacilli. 10.History of dementia. 11.History of hypothyroidism. 12.History of prostate cancer. 13.History of benign pituitary mass. 14.Bilateral macular degeneration. 15.History of adenoidectomy. 16.Remote history of nicotine dependence. RECOMMENDATIONS AND DISCUSSION: This 85-year-old gentleman who presented with multiple complex medical issues, we will monitor the patient closely, continue the current medications, management and symptomatic treatment. We will initiate broad-spectrum IV antibiotics. Otherwise, the urine and blood cultures. Resume the home medications. Guarded prognosis because of multiple complex medical issues. A copy of dictation is being forwarded to Dr. Rogers who is the primary physician. MMODL / IJN: [id number] /
[2021-02-06] MEDS: amLODIPine 5 MG TAB PO SCH (19:47)
[2021-02-06] MEDS: ERYTHROMYCIN 5 MG/GM OPHTH OINT 3.5 GM TUBE BOTH EYES SCH (19:47)
[2021-02-06] MEDS: ATORVASTATIN 40 MG TAB PO SCH (19:47)
[2021-02-06] MEDS: MULTIVITAMINS, THERA 1 EACH TAB PO SCH (19:49)
[2021-02-06] MEDS: HYDROCORTISONE 10 MG TAB PO SCH (19:49)
[2021-02-06] MEDS: TOPIRAMATE 25 MG TAB PO SCH (19:50)
[2021-02-06] MEDS: SENNOSIDES 8.6 MG TAB PO SCH (19:50)
[2021-02-06] MEDS: PROSTAT PO SCH (19:50)
[2021-02-07] MEDS: SODIUM CHLORIDE 0.9% 1,000 ML IV SCH ×2 (01:05→15:13)
[2021-02-07] MEDS: PIPERACILLIN-TAZOBACTAM 3.375 GM in SODIUM CHLORIDE 0.9% 100 ML IVPB SCH ×3 (04:51→22:57)
[2021-02-07] MEDS: LEVOTHYROXINE 125 MCG TAB PO SCH (04:51)
[2021-02-07] MEDS: FUROSEMIDE 20 MG TAB PO SCH ×2 (07:12→14:34)
[2021-02-07] MEDS: PANTOPRAZOLE 40 MG TABLET PO SCH (07:12)
[2021-02-07] MEDS: polyethylene glycoL 3350 17 GM POWD.PACK PO SCH (07:12)
[2021-02-07] MEDS: SERTRALINE 100 MG TAB PO SCH (07:12)
[2021-02-07] MEDS: POTASSIUM CHLORIDE ER 20 MEQ TAB.ER PO SCH (07:12)
[2021-02-07] MEDS: ERYTHROMYCIN 5 MG/GM OPHTH OINT 3.5 GM TUBE BOTH EYES SCH ×2 (07:12→21:21)
[2021-02-07] MEDS: HYDROCORTISONE 10 MG TAB PO SCH ×2 (07:13→22:25)
[2021-02-07] MEDS: TOPIRAMATE 25 MG TAB PO SCH ×2 (07:14→22:25)
[2021-02-07] MEDS: BENZOCAINE MUCOUS MEM SCH ×3 (09:06→22:27)
[2021-02-07] MEDS: PROSTAT PO SCH ×2 (09:06→22:27)
[2021-02-07 12:06] LABS: Basophils # (A) 0.01 X 10*3/uL (0.00-0.10); Basophils % (A) 0.1 %; Eosinophils # (A) 0.04 X 10*3/uL (0.04-0.35); Eosinophils % (A) 0.4 %; HCT 27.8 % (39.6-50.0); HGB 8.6 g/dL (13.0-17.0); Lymphocytes # (A) 1.07 X 10*3/uL (0.90-5.00); Lymphocytes % (A) 10.6 %; MCH 30.7 pg (27.0-32.0); MCHC 30.9 g/dL (32.0-37.0); MCV 99.3 fL (80.0-97.0); Mean Platelet Volume 10.3 fL (9.5-12.2); Monocytes # (A) 0.57 X 10*3/uL (0.20-1.00); Monocytes % (A) 5.7 %; Neutrophils # (A) 8.33 X 10*3/uL (1.80-7.70); Neutrophils % (A) 82.6 %; Platelet Count 88 X 10*3/uL (140-440); RDW 14.7 % (11.5-14.5); WBC 10.08 X 10*3/uL (4.50-10.00)
[2021-02-07 12:57] LABS: African American GFR (CKD) 27.1 (60.0-200.0); Anion Gap 9.2 mmol/L (4.00-12.00); BUN/Creat Ratio 39.17 Ratio (12.00-20.00); Carbon Dioxide 25.8 mmol/L (21.6-31.8); Non-African American GFR(CKD) 23.4 (60.0-200.0); Potassium 3.9 mmol/L (3.5-5.5)
[2021-02-07 14:07] VITALS: BMI 28.5
--- NOTE | 2021-02-07 15:12 | PN ---
PROGRESS NOTE Patient is seen for followup for acute kidney injury. His renal function continues to improve. The patient is currently off IV fluids. It looks like he was maintained on IV fluids. I do see Lasix as well. Clinically patient does not appear to be significantly volume overloaded. His renal function has been improving with creatinine down to 2.4 from 3.36. Therefore, I will continue with gentle IV hydration. ASSESSMENT: 1. Chronic kidney disease, baseline creatinine 1.4 secondary to nephrosclerosis, NKF stage III. 2. History of recurrent urinary tract infection and current UA suggestive of urinary tract infection, maintained on antibiotics. 3. Anemia, multifactorial. 4. History of prostatic cancer, rule out iron deficiency. 5. Dementia. 6. Rule out adrenal insufficiency currently maintained on hydrocortisone. PLAN: Continue with IV fluids. Continue with Cortef and hold off on Lasix for now. Repeat labs in a.m. MMODL / IJN: [id number] /
[2021-02-07] MEDS: ATORVASTATIN 40 MG TAB PO SCH (16:54)
--- NOTE | 2021-02-07 20:27 | PN ---
PROGRESS NOTE DATE OF SERVICE: 02/07/2021. HISTORY: This 85-year-old gentleman was admitted with change in mental status, acute UTI, is being closely monitored. Cultures are showing gram-negative bacilli and he E coli. Blood culture showing E coli. PHYSICAL EXAMINATION: Alert and oriented x1. Pulse 77, blood pressure 101/55, respirations 16, temperature 97.2, pulse ox 98% on room air. HEENT: Conjunctivae normal. NECK: No JVD. CARDIOVASCULAR: Breath sounds diminished at the bases, few scattered rhonchi. ABDOMEN: Soft NERVOUS SYSTEM: No focal deficits. PSYCH: Improved. LABS: WBC 7.2, hemoglobin is 8.6, creatinine is 2.4. UA noted. ASSESSMENT: 1. Acute urinary tract infection with sepsis with possibly E coli present on admission. 2. Change in mental status, acute on chronic metabolic acidosis secondary to sepsis. 3. Increased WBC secondary to sepsis. 4. Thrombocytopenia. 5. Anemia, normocytic anemia of chronic disease. 6. Hyponatremia. 7. Acute renal failure with acute tubular necrosis. 8. Chronic kidney stage 3 baseline possibly. 9. Elevated AST ALT possibly secondary sepsis secondary to gram-negative bacilli. 10.History of dementia. 11.History of hypothyroidism. 12.History of prostate cancer. 13.History of benign pituitary mass. 14.Bilateral macular degeneration. 15.History of adenoidectomy. 16.Remote history of nicotine dependence. 17.FULL CODE. RECOMMENDATIONS: Continue current management and symptomatic treatment. Otherwise nephrology input appreciated. I would also recommend infectious disease evaluation. Guarded prognosis because of multiple complex medical conditions. Further recommendations to follow. Psych improved, still the patient is confused, probably close to the baseline at this time. See orders for further details. MMODL / IJN: [id number] /
[2021-02-07] MEDS: SENNOSIDES 8.6 MG TAB PO SCH (21:21)
[2021-02-07] MEDS: MULTIVITAMINS, THERA 1 EACH TAB PO SCH (21:21)
[2021-02-07] MEDS: LORazepam 0.5 MG TAB PO PRN (21:21)
[2021-02-07] MEDS: amLODIPine 5 MG TAB PO SCH (21:21)
[2021-02-07] MEDS: MELATONIN 3 MG TABLET PO PRN (21:22)
[2021-02-08] MEDS: SODIUM CHLORIDE 0.9% 1,000 ML IV SCH ×2 (04:23→14:40)
[2021-02-08] MEDS: LEVOTHYROXINE 125 MCG TAB PO SCH (05:03)
[2021-02-08] MEDS: PIPERACILLIN-TAZOBACTAM 3.375 GM in SODIUM CHLORIDE 0.9% 100 ML IVPB SCH (05:03)
[2021-02-08] MEDS: BENZOCAINE MUCOUS MEM SCH ×3 (06:57→20:06)
[2021-02-08] MEDS: PROSTAT PO SCH ×2 (06:57→20:06)
[2021-02-08] MEDS: HYDROCORTISONE 10 MG TAB PO SCH ×2 (07:02→20:01)
[2021-02-08] MEDS: TOPIRAMATE 25 MG TAB PO SCH ×2 (07:02→20:01)
[2021-02-08] MEDS: PANTOPRAZOLE 40 MG TABLET PO SCH (07:03)
[2021-02-08] MEDS: POTASSIUM CHLORIDE ER 20 MEQ TAB.ER PO SCH (07:03)
[2021-02-08] MEDS: SERTRALINE 100 MG TAB PO SCH (07:03)
[2021-02-08] MEDS: ERYTHROMYCIN 5 MG/GM OPHTH OINT 3.5 GM TUBE BOTH EYES SCH ×2 (07:04→20:02)
[2021-02-08 11:06] LABS: HCT 25.8 % (39.6-50.0); MCV 96.6 fL (80.0-97.0); Platelet Count 97 X 10*3/uL (140-440); RBC 2.67 X 10*6/uL (4.40-5.60); RDW 14.7 % (11.5-14.5); WBC 8.25 X 10*3/uL (4.50-10.00)
--- NOTE | 2021-02-08 12:17 | P.PN ---
Subjective Patient is seen in follow-up for acute kidney injury on chronic kidney disease. Creatinine 2.4 as of yesterday. Patient is confused and not a reliable historian. He is maintained on IV fluids. Has a chronic Black catheter and is nonoliguric. Vital signs are stable. General: The patient appeared well nourished and normally developed. HEENT: Head exam is unremarkable. Neck is without jugular venous distension. LUNGS: Breath sounds decreased. HEART: Rate and Rhythm are regular. ABDOMEN: Soft, no distention. EXTREMITITES: No edema. Objective - Vital Signs Vital signs: Vital Signs Temp 97.9 F 02/08/21 08:00 Pulse 67 02/08/21 08:00 Resp 19 02/08/21 08:00 BP 142/86 02/08/21 08:00 Pulse Ox 96 02/08/21 08:00 Intake & Output 02/07/21 02/08/21 02/08/21 18:59 06:59 18:59 Intake Total 480 Output Total 1725 1300 Balance -1245 -1300 Weight 95.254 kg Intake: Oral 480 Output: Urine 1725 1300 Other: Voiding Method Indwelling Catheter # Bowel Movements 1 - Labs CBC & Chem 7: 02/08/21 07:11 02/07/21 07:28 Labs: Abnormal Lab Results - Last 24 Hours (Table) 02/07/21 02/08/21 Range/Units 07:28 07:11 RBC 2.67 L (4.40-5.60) X 10*6/uL Hgb 8.0 L (13.0-17.0) g/dL Hct 25.8 L (39.6-50.0) % MCHC 31.0 L (32.0-37.0) g/dL RDW 14.7 H (11.5-14.5) % Plt Count 97 L (140-440) X 10*3/uL BUN 94.0 H (9.0-27.0) mg/dL Creatinine 2.4 H (0.6-1.5) mg/dL Est GFR (CKD-EPI)AfAm 27.1 L (60.0-200.0) Est GFR (CKD-EPI)NonAf 23.4 L (60.0-200.0) BUN/Creatinine Ratio 39.17 H (12.00-20.00) Ratio Calcium 8.0 L (8.7-10.3) mg/dL Microbiology - Last 24 Hours (Table) 02/05/21 20:21 Urine Culture - Final Urine,Voided Escherichia coli 02/05/21 20:33 Blood Culture Gram Stain - Final Blood Blood Culture - Final Escherichia coli 02/05/21 20:10 Blood Culture Gram Stain - Final Blood Blood Culture - Final Escherichia coli 02/06/21 16:12 Blood Culture - Preliminary Blood No Growth after 24 hours Assessment and Plan Plan: Assessment: 1. Acute kidney injury mostly prerenal secondary to infection. Improving with IV hydration. Creatinine 2.4 as of yesterday. 2. Chronic kidney disease stage IIIB with baseline creatinine near 1.4 in September 2020 secondary to nephrosclerosis. 3. E. coli UTI and bacteremia maintained on antibiotics. 4. Hypertension with chronic kidney disease. Stable. 5. Questionable adrenal sufficiency. Blood pressure not low. Maintained on Cortef. Plan: Decreased Cortef to 10 mg twice a day. Avoid nephrotoxins. Decrease normal saline to 60 mL an hour. Encourage oral intake. Continue to monitor renal function and urine output. Add Aranesp.
[2021-02-08] MEDS ORDERED: DARBEPOETIN ALFA 40 MCG/0.4 ML SYRINGE SQ SCH (12:30)
[2021-02-08 12:31] LABS: Basophils # (A) 0.01 X 10*3/uL (0.00-0.10); Basophils % (A) 0.1 %; Eosinophils # (A) 0.07 X 10*3/uL (0.04-0.35); Eosinophils % (A) 0.8 %; Lymphocytes # (A) 1.22 X 10*3/uL (0.90-5.00); Lymphocytes % (A) 14.8 %; Monocytes # (A) 0.54 X 10*3/uL (0.20-1.00); Monocytes % (A) 6.5 %; Neutrophils # (A) 6.31 X 10*3/uL (1.80-7.70); Neutrophils % (A) 76.6 %
[2021-02-08 12:37] LABS: African American GFR (CKD) 31.8 (60.0-200.0); Anion Gap 12.2 mmol/L (4.00-12.00); BUN/Creat Ratio 38.57 Ratio (12.00-20.00); Calcium 7.6 mg/dL (8.7-10.3); Carbon Dioxide 22.8 mmol/L (21.6-31.8); Non-African American GFR(CKD) 27.5 (60.0-200.0); Potassium 3.2 mmol/L (3.5-5.5)
[2021-02-08] MEDS ORDERED: Magnesium Replacement Protocol 1 EACH MISC MISCELLANE PRN (16:39)
[2021-02-08] MEDS ORDERED: Potassium Replacement Protocol 1 EACH MISC MISCELLANE PRN (16:39)
--- NOTE | 2021-02-08 18:10 | PN ---
PROGRESS NOTE DATE OF SERVICE: 02/08/2021 This 85-year-old gentleman was admitted with acute UTI with sepsis. No change in mental status. Patient on broad spectrum IV antibiotics. Multiple cultures showing E coli which is polysensitive. Infectious Disease following the patient closely. No chest pain. No palpitations. No fever. EXAM: The patient is conscious, confused. Pulse 56, blood pressure 105/58, respiration 18, temperature 98.4, pulse ox 97% on room air. HEENT: Conjunctivae normal. NECK: No JVD. CARDIOVASCULAR: S1, S2 muffled. RESPIRATIONS: Breath sounds diminished in the bases. A few scattered rhonchi. ABDOMEN: Soft. Nontender. NERVOUS SYSTEM: No focal deficits. LABS: WBC 8.25, hemoglobin is 8 and sodium is 140, potassium 3.2. ASSESSMENT: 1. Acute urinary tract infection with sepsis due to E. coli present on admission. 2. Change in mental status, acute on chronic metabolic encephalopathy secondary to sepsis. 3. Hypokalemia. 4. Increased WBC secondary to sepsis. 5. Thrombocytopenia. 6. Anemia, normocytic anemia of chronic disease. 7. Hyponatremia. 8. Acute renal failure with acute tubular necrosis. 9. Chronic kidney stage 3 baseline. 10.Elevated AST/ALT possibly secondary to sepsis secondary to gram-negative bacilli. 11.History of dementia. 12.History of hypothyroidism. 13.History of prostate cancer. 14.History of benign prostatic hypertrophy. 15.Bilateral macular degeneration. 16.History of adenoidectomy. 17.Remote history of nicotine dependence. 18.FULL CODE. RECOMMENDATIONS AND DISCUSSION: I recommend to continue current medications, continue to monitor and symptomatic treatment. Otherwise, at this time, I recommend potassium supplementation, magnesium supplementation. Otherwise, repeat labs. Continue the antibiotics. Guarded prognosis because of multiple complex medical issues and further recommendations to follow. MMODL / IJN: [id number] /
[2021-02-08] MEDS: MELATONIN 3 MG TABLET PO PRN (19:06)
[2021-02-08] MEDS: LORazepam 0.5 MG TAB PO PRN (19:06)
[2021-02-08] MEDS: ATORVASTATIN 40 MG TAB PO SCH (19:09)
[2021-02-08] MEDS: amLODIPine 5 MG TAB PO SCH (19:09)
[2021-02-08] MEDS: SENNOSIDES 8.6 MG TAB PO SCH (20:01)
[2021-02-08] MEDS: MULTIVITAMINS, THERA 1 EACH TAB PO SCH (20:01)
[2021-02-09] MEDS: LORazepam 0.5 MG TAB PO PRN ×3 (01:53→19:15)
[2021-02-09] MEDS: SODIUM CHLORIDE 0.9% 1,000 ML IV SCH ×2 (05:09→07:41)
--- NOTE | 2021-02-09 06:49 | CONS ---
CONSULTATION DATE OF SERVICE: 02/08/2021 REASON FOR CONSULTATION: E coli UTI and bacteremia. 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 The patient was brought into the ER 3 days ago on 02/05/2021 for evaluation of mental status changes, weakness and abnormal labs. The patient noticed to have elevated BUN and creatinine. On arrival to the ER, the patient was awake, alert, oriented x1, and did not have any significant symptoms. On presentation to the hospital, the patient was afebrile. The patient did have a white count of 10.9, creatinine 3.36. BUN was elevated. He did have a positive UA with moderate leukocyte esterase and bacteria. Gao PCR was negative. The patient did have a chest x-ray that was some new mild infiltrate right lower lobe. The patient has been treated with Zosyn with blood and urine culture showing E coli. Infectious Disease was consulted for further management of antibiotic therapy. The patient, at time of evaluation, denies having any headache. No chest pain, shortness of breath or cough. No nausea, no vomiting. No abdominal pain or diarrhea. REVIEW OF SYSTEMS: Positive points have been mentioned in HPI. Rest of systems are negative. PAST MEDICAL HISTORY: Urinary outflow obstruction requiring chronic indwelling Black, dementia, hypothyroidism, prostate cancer, recurrent UTIs. PAST SURGICAL HISTORY: Adenoidectomy tonsillectomy, EGD, colonoscopy, bilateral cataract removal and lens implant and midline placement. SOCIAL HISTORY: No history of smoking, drinking or drug use. 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 FAMILY HISTORY: Father with history of colon cancer. Mother history of CVA and TIA. ALLERGIES: SULFAMETHOXAZOLE. MEDICATIONS: Include the patient is currently on Zosyn, Tylenol, Norvasc, Lipitor, Cortef, Synthroid, Ativan, melatonin, Theragran, Narcan, Zofran, Protonix, MiraLAX, K-Dur, Senokot, Zoloft and Topamax. PHYSICAL EXAMINATION: Blood pressure 140/64, pulse of 96, temperature is 97.5. He is 94% on room air. The patient is an elderly male lying in bed in no distress. No tachypnea or accessory muscles of respiration use. HEENT: Shows slight pallor. No scleral icterus. Oral mucous membranes dry. NECK: Trachea central. No thyromegaly. LUNGS unlabored breathing. Decreased breath sounds at the base. No wheeze. HEART: S1, S2. Regular rate and rhythm. ABDOMEN: Soft, no tenderness. No guarding. No rigidity. EXTREMITIES: No edema of the feet. SKIN EXAMINATION: No rash or mass palpable. NEUROLOGICAL: Patient is awake, alert, oriented times three. Mood and affect normal. LABS: Hemoglobin 8.0, white count 8.25, BUN of 81, creatinine is 2.1. Urine was positive. Blood and urine cultures with E coli. DIAGNOSTIC IMPRESSION AND PLAN: Patient presented to hospital with abnormal labs, mental status changes, weakness in this patient who did have evidence of a complicated urinary tract infection, both urine and blood positive for E coli not an ESBL pathogen. PLAN: 1. Discontinue Zosyn. 2. Start the patient on Rocephin 2 grams daily. 3. Check ultrasound of kidney, bladder to make sure no evidence of any obstructive uropathy structure abnormality. 4. We will follow on clinical condition and further adjust medication if needed. Thank you for this consultation. Will follow this patient along with you. MMODL / IJN: [id number] /
[2021-02-09] MEDS: LEVOTHYROXINE 125 MCG TAB PO SCH (07:04)
[2021-02-09] MEDS: SERTRALINE 100 MG TAB PO SCH (07:04)
[2021-02-09] MEDS: BENZOCAINE MUCOUS MEM SCH ×3 (07:40→20:16)
[2021-02-09] MEDS: ERYTHROMYCIN 5 MG/GM OPHTH OINT 3.5 GM TUBE BOTH EYES SCH ×2 (07:42→20:14)
[2021-02-09] MEDS: HYDROCORTISONE 10 MG TAB PO SCH ×2 (07:42→20:13)
[2021-02-09] MEDS: PANTOPRAZOLE 40 MG TABLET PO SCH (07:42)
[2021-02-09] MEDS: POTASSIUM CHLORIDE ER 20 MEQ TAB.ER PO SCH (07:42)
[2021-02-09] MEDS: TOPIRAMATE 25 MG TAB PO SCH ×2 (07:43→20:13)
[2021-02-09] MEDS: PROSTAT PO SCH ×2 (07:43→20:16)
[2021-02-09] MEDS: polyethylene glycoL 3350 17 GM POWD.PACK PO SCH (07:55)
--- NOTE | 2021-02-09 09:19 | US ---
EXAMINATION TYPE: US kidneys/renal and bladder DATE OF EXAM: 02/08/2021 COMPARISON: CLINICAL HISTORY: uti and bacteremia. Poor historian. EXAM MEASUREMENTS: Right Kidney: 10.6 x 5.0 x 5.0 cm Left Kidney: 9.4 x 3.6 x 5.2 cm Right Kidney: No hydronephrosis, nephrolithiasis or masses seen Left Kidney: Dromedary hump visualized. No evidence of nephrolithiasis. Lower pole dilated renal pel vis vs mild hydronephrosis. Bladder: Catheter seen Bilateral Jets not seen due to catheter IMPRESSION: There is prominence of the lower pole left collecting system which could represent mild hydronephrosi s.
--- NOTE | 2021-02-09 10:59 | P.PN ---
Subjective Patient is seen in follow-up for acute kidney injury on chronic kidney disease. Creatinine 2.1 as of yesterday. Patient is confused and not a reliable historian. He is maintained on IV fluids. Has a chronic Black catheter and is nonoliguric. Oral intake is good. Hemodynamically stable. Vital signs are stable. General: The patient appeared well nourished and normally developed. HEENT: Head exam is unremarkable. Neck is without jugular venous distension. LUNGS: Breath sounds decreased. HEART: Rate and Rhythm are regular. ABDOMEN: Soft, no distention. EXTREMITITES: No edema. Objective - Vital Signs Vital signs: Vital Signs Temp 97.8 F 02/09/21 08:30 Pulse 54 L 02/09/21 08:30 Resp 16 02/09/21 08:30 BP 119/57 02/09/21 08:30 Pulse Ox 97 02/09/21 08:30 Intake & Output 02/08/21 02/09/21 02/09/21 18:59 06:59 18:59 Intake Total 1020 450 Output Total 700 1200 510 Balance 320 -750 -510 Intake: Oral 1020 450 Output: Urine 700 1200 510 Other: Voiding Method Indwelling Catheter # Bowel Movements 1 - Labs CBC & Chem 7: 02/08/21 07:11 02/08/21 07:11 Labs: Abnormal Lab Results - Last 24 Hours (Table) 02/08/21 02/08/21 Range/Units 07:11 07:11 RBC 2.67 L (4.40-5.60) X 10*6/uL Hgb 8.0 L (13.0-17.0) g/dL Hct 25.8 L (39.6-50.0) % MCHC 31.0 L (32.0-37.0) g/dL RDW 14.7 H (11.5-14.5) % Plt Count 97 L (140-440) X 10*3/uL Plt Count Comment DECREASED A Immature Gran # 0.10 H (0.00-0.04) X 10*3/uL Potassium 3.2 L (3.5-5.5) mmol/L Anion Gap 12.20 H (4.00-12.00) mmol/L BUN 81.0 H (9.0-27.0) mg/dL Creatinine 2.1 H (0.6-1.5) mg/dL Est GFR (CKD-EPI)AfAm 31.8 L (60.0-200.0) Est GFR (CKD-EPI)NonAf 27.5 L (60.0-200.0) BUN/Creatinine Ratio 38.57 H (12.00-20.00) Ratio Calcium 7.6 L (8.7-10.3) mg/dL Microbiology - Last 24 Hours (Table) 02/06/21 16:12 Blood Culture - Preliminary Blood No Growth after 48 hours 02/05/21 20:21 Urine Culture - Final Urine,Voided Escherichia coli Assessment and Plan Plan: Assessment: 1. Acute kidney injury mostly prerenal secondary to infection. Improving with IV hydration. Creatinine 2.1 as of yesterday. No hydronephrosis noted on kidney ultrasound. 2. Chronic kidney disease stage IIIB with baseline creatinine near 1.4 in September 2020 secondary to nephrosclerosis. 3. E. coli UTI and bacteremia maintained on antibiotics. 4. Hypertension with chronic kidney disease. Stable. 5. Questionable adrenal sufficiency. Blood pressure stable. Maintained on Cortef. 6. Hypokalemia from poor intake and steroids. Replaced. 7. Anemia of chronic kidney disease maintained on Aranesp. Plan: Stop Norvasc. Maintain Cortef at current dose. Patient will need to follow-up with endocrinology outpatient to confirm diagnosis of adrenal insufficiency. Avoid nephrotoxins. Encourage oral intake. Continue to monitor renal function and urine output. Morning labs pending.
[2021-02-09 11:55] LABS: HCT 26.3 % (39.6-50.0); HGB 7.9 g/dL (13.0-17.0); MCH 30.4 pg (27.0-32.0); MCV 101.2 fL (80.0-97.0); Mean Platelet Volume 10.5 fL (9.5-12.2); Platelet Count 114 X 10*3/uL (140-440); WBC 7.63 X 10*3/uL (4.50-10.00)
[2021-02-09 12:27] LABS: Basophils # (A) 0.02 X 10*3/uL (0.00-0.10); Basophils % (A) 0.3 %; Eosinophils # (A) 0.22 X 10*3/uL (0.04-0.35); Eosinophils % (A) 2.9 %; Lymphocytes # (A) 1.61 X 10*3/uL (0.90-5.00); Lymphocytes % (A) 21.1 %; Monocytes # (A) 0.52 X 10*3/uL (0.20-1.00); Monocytes % (A) 6.8 %; Neutrophils # (A) 5.17 X 10*3/uL (1.80-7.70); Neutrophils % (A) 67.7 %
[2021-02-09 12:28] LABS: Acanthocytes 2+
--- NOTE | 2021-02-09 13:17 | PN ---
PROGRESS NOTE DATE OF SERVICE: 02/09/2021 REASON FOR FOLLOWUP: E coli UTI and bacteremia. INTERVAL HISTORY: Patient is currently afebrile. Patient is breathing comfortably. Denies having any chest pain, shortness of breath, abdominal pain, no diarrhea and wants to go home. PHYSICAL EXAMINATION: VITAL SIGNS: Blood pressure 119/57, pulse of 54, temperature 97.8. He is 97% on room air. GENERAL DESCRIPTION: An elderly male lying in bed in no distress. RESPIRATORY SYSTEM: Unlabored breathing, clear to auscultation anteriorly. HEART: S1, S2. Regular rate and rhythm. ABDOMEN: Soft, no tenderness. EXTREMITIES: No edema of the feet. LABS: Hemoglobin 8.0, white count 8.2, BUN of 81, creatinine is 2.1. Blood culture is negative. Ultrasound mild hydronephrosis on the left side. DIAGNOSTIC IMPRESSION AND PLAN: Patient with E coli bacteremia secondary to the urinary source. Blood culture repeat has been negative. Ultrasound was negative for any structural abnormality. He will finish therapy with oral Ceftin and close outpatient followup. MMODL / IJN: [id number] /
[2021-02-09 14:36] LABS: African American GFR (CKD) 44.2 (60.0-200.0); BUN/Creat Ratio 36.88 Ratio (12.00-20.00); Calcium 7.6 mg/dL (8.7-10.3); Magnesium 1.7 mg/dL (1.5-2.4); Non-African American GFR(CKD) 38.2 (60.0-200.0); Potassium 2.8 mmol/L (3.5-5.5)
[2021-02-09] MEDS: POTASSIUM CHLORIDE 10 MEQ in WATER FOR INJECTION 1 100ML.BAG IVPB SCH ×6 (15:06→20:14)
[2021-02-09] MEDS ORDERED: POTASSIUM CHLORIDE ER 20 MEQ TAB.ER PO STA (15:45)
--- NOTE | 2021-02-09 18:48 | PN ---
PROGRESS NOTE DATE OF SERVICE: 02/09/2021 This 85 -year-old gentleman admitted with acute UTI with sepsis secondary to E coli is being closely monitored. No chest pain. No palpitations. No fever. The patient is slightly more alert. PHYSICAL EXAMINATION: Pulse is 60, blood pressure 120/50. Respirations 17. Temperature 98.2, pulse ox 97% on room air. HEENT: Conjunctivae normal. NECK: No JVD. CARDIOVASCULAR: S1, S2 muffled. RESPIRATION: Breath sounds diminished in the bases. A few scattered rhonchi. ABDOMEN: Soft. NERVOUS SYSTEM: Diffusely weak. LABS: Potassium 2.8 and hemoglobin 7.9. ASSESSMENT: 1. Acute urinary tract infection with the sepsis and E. coli, present on admission. 2. Change in mental status, acute on chronic metabolic encephalopathy secondary to sepsis. 3. Severe hypokalemia. 4. Increased WBC secondary to sepsis. 5. Thrombocytopenia. 6. Anemia, normocytic anemia chronic disease. 7. Hyponatremia. 8. Acute renal failure with acute tubular necrosis. 9. Chronic kidney disease stage 3, baseline. 10.Increased AST/ALT possibly secondary sepsis secondary to E. coli. 11.History of dementia. 12.Hypothyroidism. 13.History of prostate cancer. 14.History of benign prostatic hypertrophy. 15.History of macular degeneration. 16.History of adenoidectomy. 17.Remote history of nicotine dependence. 18.FULL CODE. RECOMMENDATIONS AND DISCUSSION: I recommend to continue current medications. Continue to monitor. Symptomatic treatment. Repeat labs. Supplement potassium. Guarded prognosis. Further recommendations to follow. MMODL / IJN: [id number] /
[2021-02-09] MEDS: ATORVASTATIN 40 MG TAB PO SCH (19:15)
[2021-02-09] MEDS: MULTIVITAMINS, THERA 1 EACH TAB PO SCH (20:15)
[2021-02-09] MEDS: SENNOSIDES 8.6 MG TAB PO SCH (20:16)
[2021-02-09] MEDS: MELATONIN 3 MG TABLET PO PRN (23:35)
[2021-02-10] MEDS: LEVOTHYROXINE 125 MCG TAB PO SCH (06:00)
[2021-02-10] MEDS: SERTRALINE 100 MG TAB PO SCH (07:25)
[2021-02-10] MEDS: LORazepam 0.5 MG TAB PO PRN ×3 (07:25→19:30)
[2021-02-10] MEDS: TOPIRAMATE 25 MG TAB PO SCH ×2 (07:25→20:36)
[2021-02-10] MEDS: PANTOPRAZOLE 40 MG TABLET PO SCH (07:25)
[2021-02-10] MEDS: ERYTHROMYCIN 5 MG/GM OPHTH OINT 3.5 GM TUBE BOTH EYES SCH ×2 (07:26→20:36)
[2021-02-10] MEDS: BENZOCAINE MUCOUS MEM SCH ×3 (07:26→20:36)
[2021-02-10] MEDS: HYDROCORTISONE 10 MG TAB PO SCH ×2 (07:26→20:36)
[2021-02-10] MEDS: POTASSIUM CHLORIDE ER 20 MEQ TAB.ER PO SCH (07:26)
[2021-02-10] MEDS: PROSTAT PO SCH ×2 (07:27→20:36)
[2021-02-10 10:24] LABS: African American GFR (CKD) 62.6 (60.0-200.0); Anion Gap 7.4 mmol/L (4.00-12.00); BUN/Creat Ratio 34.17 Ratio (12.00-20.00); Carbon Dioxide 22.6 mmol/L (21.6-31.8); Magnesium 1.6 mg/dL (1.5-2.4); Potassium 4.6 mmol/L (3.5-5.5)
--- NOTE | 2021-02-10 10:35 | P.PN ---
Subjective Patient is seen in follow-up for acute kidney injury on chronic kidney disease. Renal function improving. Creatinine 1.2 today. Patient is confused and not a reliable historian. He is maintained on IV fluids. Has a chronic Black catheter and is nonoliguric. Oral intake is good. Hemodynamically stable. Vital signs are stable. General: The patient appeared well nourished and normally developed. HEENT: Head exam is unremarkable. Neck is without jugular venous distension. LUNGS: Breath sounds decreased. HEART: Rate and Rhythm are regular. ABDOMEN: Soft, no distention. EXTREMITITES: No edema. Objective - Vital Signs Vital signs: Vital Signs Temp 97.4 F L 02/10/21 07:46 Pulse 51 L 02/10/21 07:46 Resp 16 02/10/21 07:46 BP 125/68 02/10/21 07:46 Pulse Ox 99 02/10/21 07:46 Intake & Output 02/09/21 02/10/21 02/10/21 18:59 06:59 18:59 Intake Total 530 530 Output Total 1210 1300 Balance -680 -1300 530 Intake: Intake, IV Titration 530 530 Amount Sodium Chloride 0.9% 1, 480 480 000 ml @ 60 mls/hr IV . [id number] DEBORAH Rx#:[id number] cefTRIAXone 2 gm In 50 50 Sodium Chloride 0.9% 50 ml @ 100 mls/hr IVPB Q24HR DEBORAH Rx#:[id number] Output: Urine 1210 1300 Other: Voiding Method Indwelling Catheter Indwelling Catheter # Bowel Movements 1 - Labs CBC & Chem 7: 02/09/21 07:35 02/10/21 05:41 Labs: Abnormal Lab Results - Last 24 Hours (Table) 02/09/21 02/09/21 02/10/21 Range/Units 07:35 07:35 05:41 RBC 2.60 L (4.40-5.60) X 10*6/uL Hgb 7.9 L (13.0-17.0) g/dL Hct 26.3 L (39.6-50.0) % MCV 101.2 H (80.0-97.0) fL MCHC 30.0 L (32.0-37.0) g/dL RDW 15.0 H (11.5-14.5) % Plt Count 114 L (140-440) X 10*3/uL Plt Count Comment DECREASED A Immature Gran # 0.09 H (0.00-0.04) X 10*3/uL Sodium 146 H (135-145) mmol/L Potassium 2.8 L (3.5-5.5) mmol/L Chloride 113 H 116 H (96-109) mmol/L BUN 59.0 H 41.0 H (9.0-27.0) mg/dL Creatinine 1.6 H (0.6-1.5) mg/dL Est GFR (CKD-EPI)AfAm 44.2 L (60.0-200.0) Est GFR (CKD-EPI)NonAf 38.2 L 54.0 L (60.0-200.0) BUN/Creatinine Ratio 36.88 H 34.17 H (12.00-20.00) Ratio Calcium 7.6 L 8.0 L (8.7-10.3) mg/dL Microbiology - Last 24 Hours (Table) 02/06/21 16:12 Blood Culture - Preliminary Blood No Growth after 72 hours Assessment and Plan Plan: Assessment: 1. Acute kidney injury mostly prerenal secondary to infection. Improving with IV hydration. Creatinine 1.2 today. No hydronephrosis noted on kidney ultrasound. 2. Chronic kidney disease stage IIIB with baseline creatinine near 1.4 in September 2020 secondary to nephrosclerosis. 3. E. coli UTI and bacteremia maintained on antibiotics. 4. Hypertension with chronic kidney disease. Stable. 5. Questionable adrenal sufficiency. Blood pressure stable. Maintained on Cortef. 6. Hypokalemia from poor intake and steroids. Replaced. Better. 7. Anemia of chronic kidney disease maintained on Aranesp. 8. Mild hypernatremia from lack of oral water intake. Plan: Stopped Norvasc. Maintain Cortef at current dose. Patient will need to follow-up with endocrinology outpatient to confirm diagnosis of adrenal insufficiency. Avoid nephrotoxins. Encourage oral intake, including free water. Continue to monitor renal function and urine output. Change IV fluids to D5W. Replace magnesium as well.
[2021-02-10] MEDS: MAGNESIUM SULFATE-D5W PMX 1 GM in DEXTROSE/WATER 1 100ML.BAG IVPB SCH ×2 (11:12→12:12)
[2021-02-10] MEDS: DEXTROSE 5% IN WATER 1,000 ML IV SCH (11:14)
[2021-02-10 11:37] LABS: Appearance,Urine Clear (Clear); Bacteria,Urine Rare /hpf; Bilirubin,Urine Negative (Negative); Blood,Urine Negative (Negative); Color,Urine Light Yellow; Glucose,Urine (UA) Negative (Negative); Ketones,Urine Negative (Negative); Leukocyte Esterase,Urine Moderate (Negative); Mucus,Urine Rare /hpf; Nitrite,Urine Negative (Negative); Protein,Urine Negative (Negative); RBC,Urine 1 /hpf (0-5); Specific Gravity,Urine 1.012 (1.001-1.035); Urobilinogen,Urine <2.0 mg/dL (<2.0); WBC,Urine 15 /hpf (0-5)
--- NOTE | 2021-02-10 13:14 | CDI ---
Documentation Clarification Form Date: 02/10/2021 01:00:11 PM From: Lynette Escobar CCS, CCDS Admit Date: 02/05/2021 09:43:00 PM Patient Name: China Foreman Visit Number: [id number] Discharge Date: ATTENTION: The Clinical Documentation Specialists (CDI) and [facility] Coding Staff appreciate your assistance in clarifying documentation. Please respond to the clarification below the line at the bottom and electronically sign. The CDI & [facility] Coding staff will review the response and follow-up if needed. Please note: Queries are made part of the Legal Health Record. If you have any questions, please contact the author of this message via ITS. Dr. Kristina Gunn: Per the 02/06 History & Physical: Acute UTI with Sepsis on presentation. Per the 02/08 Infectious Disease Consult: The patient is an 85-year-old male with a past medical history significant for urinary obstruction requiring chronic indwelling Black catheter in this patient who did have history of recurrent UTI as a [facility] resident. The patient was brought into the ER 3 days ago on 02/05/2021 for evaluation of mental status changes, weakness and abnormal labs. Evidence of a complicated urinary tract infection, both urine and blood positive for E coli not an ESBL pathogen. Additional clarification regarding the etiology of the UTI is requested. History/Risk Factors per the 02/06 H/P: Anemia of chronic disease, CKD III, Hypothyroidism, Prostate Cancer, Dementia, Former smoker. Clinical Indicators: Presented to the ED on 02/05 via EMS with altered mental status, weakness, abnormal labs & UTI. Patient has chronic indwelling Black. ED Clinical Impression: UTI, Acute on Chronic Renal Failure, Anemia 02/05 VS: T 98.5, P 63 - 55, R 18, BP 94/55, PO 90 RA, BMI 28.5 02/05 LAB: WBC 10.9, Hgb 8.7, Pl Ct 122, Neut 9.8, Lymph 0.5, Lactic Acid 1.2, Total protein 5.5, Albumin 2.6 02/05 UA: Cloudy, Trace Protein, Moderate Blood, Positive Nitrite, Large Esterase, WBC 134 02/05 COVID negative 02/05 Blood Culture (final): neg. Repeat x2 (final): E Coli. 02/05 Urine Culture (final): E Coli Treatment: IV Zosyn, IV fluid 500 mls @ 999 mls/hr q31M, IV SoluCortef 50 mg x1 Please clarify the etiology of the UTI, if known: [ ] UTI related to Black catheter [ ] UTI not related to Black catheter [ ] Other condition, please specify [ ] Unable to determine (Template Last Revised: November 2020) UTI related to Black catheter MTDD
--- NOTE | 2021-02-10 14:13 | P.PN ---
Subjective Progress Note Date: 02/10/21 This is an 85-year-old male who was recently admitted with acute urinary tract infection with sepsis secondary to E. coli and is being closely monitored. Nephrology along with infectious disease following. Patient is maintained on IV ceftriaxone and will continue at this time as original cultures finalized showing E. coli. Repeat urinalysis was done and cultures are pending. Most recent repeat blood cultures have remained negative. Patient's kidney functions improving and current creatinine today is 1.2 with a BUN of 41, and potassium replacement per protocol was done yesterday and repeat potassium today is 4.6. Sodium is elevated at 146 and will transition IV fluids to D5 and water and will repeat a.m. labs. Magnesium found to be 1.6 and will replace per protocol and repeat magnesium level as well. Review of systems: Constitutional: reports fatigue, no reports of fever, or chills Cardiovascular: No reports of chest pain or palpitations Respiratory: No reports of shortness of breath or cough GI: No reports of nausea, vomiting, or diarrhea : No reports of dysuria or retention, as an indwelling Black catheter Neurovascular: reports generalized weakness All medications have been reviewed Objective - Vital Signs Vital signs: Vital Signs Temp 97.4 F L 02/10/21 07:46 Pulse 51 L 02/10/21 07:46 Resp 16 02/10/21 07:46 BP 125/68 02/10/21 07:46 Pulse Ox 99 02/10/21 07:46 Intake & Output 02/09/21 02/10/21 02/10/21 18:59 06:59 18:59 Intake Total 530 530 Output Total 1210 1300 Balance -680 -1300 530 Intake: Intake, IV Titration 530 530 Amount Sodium Chloride 0.9% 1, 480 480 000 ml @ 60 mls/hr IV . [id number] DEBORAH Rx#:[id number] cefTRIAXone 2 gm In 50 50 Sodium Chloride 0.9% 50 ml @ 100 mls/hr IVPB Q24HR DEBORAH Rx#:[id number] Output: Urine 1210 1300 Other: Voiding Method Indwelling Catheter Indwelling Catheter # Bowel Movements 1 - Exam Gen: This is a 85-year-old male lying in bed asleep although arousable alert and oriented 1-2, well-developed, well-nourished. Temp is 97.4F, pulse is 51, respirations are 16, blood pressure is 125/68, oxygen saturation is 99% on room air. HEENT: Head is atraumatic, normocephalic. Pupils equal, round. Sclerae is anicteric. NECK: Supple. No JVD. No lymphadenopathy. No thyromegaly. LUNGS: Diminished breath sounds bilaterally with a few scattered rhonchi noted. No intercostal retractions. HEART: S1, S2 are muffled ABDOMEN: Soft. Bowel sounds are present. No masses. No tenderness. EXTREMITIES: No pedal edema. No calf tenderness. NEUROLOGICAL: Patient is asleep although arousable , alert and oriented x1-2. Diffusely weak. - Labs CBC & Chem 7: 02/09/21 07:35 02/10/21 05:41 Labs: Abnormal Lab Results - Last 24 Hours (Table) 02/09/21 02/09/21 02/10/21 Range/Units 07:35 07:35 05:41 RBC 2.60 L (4.40-5.60) X 10*6/uL Hgb 7.9 L (13.0-17.0) g/dL Hct 26.3 L (39.6-50.0) % MCV 101.2 H (80.0-97.0) fL MCHC 30.0 L (32.0-37.0) g/dL RDW 15.0 H (11.5-14.5) % Plt Count 114 L (140-440) X 10*3/uL Plt Count Comment DECREASED A Immature Gran # 0.09 H (0.00-0.04) X 10*3/uL Sodium 146 H (135-145) mmol/L Potassium 2.8 L (3.5-5.5) mmol/L Chloride 113 H 116 H (96-109) mmol/L BUN 59.0 H 41.0 H (9.0-27.0) mg/dL Creatinine 1.6 H (0.6-1.5) mg/dL Est GFR (CKD-EPI)AfAm 44.2 L (60.0-200.0) Est GFR (CKD-EPI)NonAf 38.2 L 54.0 L (60.0-200.0) BUN/Creatinine Ratio 36.88 H 34.17 H (12.00-20.00) Ratio Calcium 7.6 L 8.0 L (8.7-10.3) mg/dL Microbiology - Last 24 Hours (Table) 02/06/21 16:12 Blood Culture - Preliminary Blood No Growth after 72 hours Assessment and Plan Assessment: Acute urinary tract infection with sepsis and E. coli, present on admission, possibly related to chronic indwelling Black catheter Change in mental status, acute on chronic metabolic encephalopathy secondary to sepsis Severe hypokalemia Increased white blood count secondary to sepsis Thrombocytopenia anemia, normocytic anemia of chronic disease Hyponatremia Acute renal failure with acute tubular necrosis Chronic kidney disease stage III, baseline Increased ALT, AST possibly secondary sepsis secondary to E. coli History of dementia hypothyroidism History of prostate cancer history of benign prostatic hypertrophy History of macular degeneration History of adenoidectomy Remote history of nicotine dependence Full code Recommendations and discussion: Recommend to continue with current medications, management, and symptomatic treatment. Patient continues on IV antibiotics in the form of ceftriaxone as recent urine cultures are finalized showing E. coli and blood cultures of 02/05/2021 were positive as well for E. coli. Repeat blood cultures remain negative. Repeat urinalysis was done and awaiting finalization. Infectious disease is following. Creatinine trending down and is currently 1.2 with a BUN of 41, repeat potassium after supplementation is 4.6 and sodium is elevated at 146 and will transition IV fluids to D5. Continue to increase and encourage oral intake. Social work is following as well as patient will be returning to [facility] once stabilized and discharged.
[2021-02-10] MEDS: ATORVASTATIN 40 MG TAB PO SCH (19:30)
[2021-02-10] MEDS: MELATONIN 3 MG TABLET PO PRN (20:35)
[2021-02-10] MEDS: SENNOSIDES 8.6 MG TAB PO SCH (20:36)
[2021-02-10] MEDS: MULTIVITAMINS, THERA 1 EACH TAB PO SCH (20:36)
--- NOTE | 2021-02-10 22:45 | PN ---
PROGRESS NOTE DATE OF SERVICE: 02/10/2021. REASON FOR FOLLOWUP: E coli UTI and bacteremia. INTERVAL HISTORY: Patient is currently afebrile. The patient is breathing comfortably. The patient denies having any chest pain, shortness of breath or cough. No nausea. No vomiting. No abdominal pain. No diarrhea. PHYSICAL EXAMINATION: Blood pressure is 135/70 with a pulse of 53, temperature 98.3. He is 100% on room air. General description: The patient is an elderly male lying in bed in no distress. Respiratory system: Unlabored breathing, clear to auscultation anteriorly. HEART: S1, S2. Regular rate and rhythm. ABDOMEN: Soft, no tenderness. LABS: BUN of 41, creatinine is 1.2. DIAGNOSTIC IMPRESSION AND PLAN: Patient with an E coli bacteremia secondary to urinary source. Clinically responding to Rocephin to continue to finish therapy with Ceftin and monitor clinical course closely. MMODL / IJN: [id number] /
[2021-02-11] MEDS: LORazepam 0.5 MG TAB PO PRN ×2 (04:47→12:40)
[2021-02-11] MEDS: LEVOTHYROXINE 125 MCG TAB PO SCH (05:12)
[2021-02-11] MEDS: DEXTROSE 5% IN WATER 1,000 ML IV SCH (05:12)
[2021-02-11 08:20] VITALS: BP 134/57; PULSE 53; RESP 17; TEMP 97.7
[2021-02-11] MEDS: BENZOCAINE MUCOUS MEM SCH (08:38)
[2021-02-11] MEDS: PANTOPRAZOLE 40 MG TABLET PO SCH (08:45)
[2021-02-11] MEDS: SERTRALINE 100 MG TAB PO SCH (08:45)
[2021-02-11] MEDS: POTASSIUM CHLORIDE ER 20 MEQ TAB.ER PO SCH (08:46)
[2021-02-11] MEDS: PROSTAT PO SCH (08:46)
[2021-02-11] MEDS: HYDROCORTISONE 10 MG TAB PO SCH (08:46)
[2021-02-11] MEDS: polyethylene glycoL 3350 17 GM POWD.PACK PO SCH (08:46)
[2021-02-11] MEDS: TOPIRAMATE 25 MG TAB PO SCH (08:46)
[2021-02-11 09:17] LABS: African American GFR (CKD) 64 (>60 ml/min/1.73 sqM); Anion Gap 4 mmol/L; Blood Urea Nitrogen 29 mg/dL (9-20); Calcium 7.7 mg/dL (8.4-10.2); Carbon Dioxide 22 mmol/L (22-30); Chloride 113 mmol/L (98-107); Glucose 87 mg/dL (74-99); Magnesium 2.1 mg/dL (1.6-2.3); Non-African American GFR(CKD) 56 (>60 ml/min/1.73 sqM); Potassium 4.5 mmol/L (3.5-5.1); Sodium 139 mmol/L (137-145)
[2021-02-11] MEDS: ERYTHROMYCIN 5 MG/GM OPHTH OINT 3.5 GM TUBE BOTH EYES SCH (10:06)
--- NOTE | 2021-02-11 10:50 | P.PN ---
Subjective Patient is seen in follow-up for acute kidney injury on chronic kidney disease. Renal function improving. Creatinine 1.17 today. Patient is confused and not a reliable historian. He is maintained on IV fluids. Has a chronic Black catheter and is nonoliguric. Hemodynamically stable. Vital signs are stable. General: The patient appeared well nourished and normally developed. HEENT: Head exam is unremarkable. Neck is without jugular venous distension. LUNGS: Breath sounds decreased. HEART: Rate and Rhythm are regular. ABDOMEN: Soft, no distention. Wound noted in the sacrum. EXTREMITITES: No edema. Objective - Vital Signs Vital signs: Vital Signs Temp 97.7 F 02/11/21 07:24 Pulse 53 L 02/11/21 07:24 Resp 17 02/11/21 07:24 BP 134/57 02/11/21 07:24 Pulse Ox 98 02/11/21 07:24 Intake & Output 02/10/21 02/11/21 02/11/21 18:59 06:59 18:59 Intake Total 530 Output Total 800 1300 Balance -270 -1300 Weight 95.254 kg Intake: Intake, IV Titration 530 Amount Sodium Chloride 0.9% 1, 480 000 ml @ 60 mls/hr IV . [id number] DEBORAH Rx#:[id number] cefTRIAXone 2 gm In 50 Sodium Chloride 0.9% 50 ml @ 100 mls/hr IVPB Q24HR DEBORAH Rx#:[id number] Output: Urine 800 1300 Other: Voiding Method Indwelling Catheter Indwelling Catheter - Labs CBC & Chem 7: 02/09/21 07:35 02/11/21 07:57 Labs: Abnormal Lab Results - Last 24 Hours (Table) 02/10/21 02/11/21 Range/Units 10:30 07:57 Chloride 113 H (98-107) mmol/L BUN 29 H (9-20) mg/dL Calcium 7.7 L (8.4-10.2) mg/dL Ur Leukocyte Esterase Moderate H (Negative) Urine WBC 15 H (0-5) /hpf Urine Bacteria Rare H (None) /hpf Urine Mucus Rare H (None) /hpf Microbiology - Last 24 Hours (Table) 02/10/21 10:30 Urine Culture - Preliminary Urine,Voided 02/06/21 16:12 Blood Culture - Preliminary Blood No Growth after 96 hours Assessment and Plan Plan: Assessment: 1. Acute kidney injury mostly prerenal secondary to infection. Improving with IV hydration. Creatinine 1.17 today. No hydronephrosis noted on kidney ultrasound. No proteinuria on UA. 2. Chronic kidney disease stage IIIB with baseline creatinine near 1.4 in September 2020 secondary to nephrosclerosis. 3. E. coli UTI and bacteremia maintained on antibiotics. 4. Hypertension with chronic kidney disease. Stable. 5. Questionable adrenal sufficiency. Blood pressure stable. Maintained on Cortef. 6. Hypokalemia from poor intake and steroids. Replaced. Better. 7. Anemia of chronic kidney disease maintained on Aranesp. 8. Mild hypernatremia from lack of oral water intake. Improved. Plan: Hep-Lock IV fluids. Stopped Norvasc. Maintain Cortef at current dose. Patient will need to follow-up with endocrinology outpatient to confirm diagnosis of adrenal insufficiency. Avoid nephrotoxins. Encourage oral intake, including free water. Continue to monitor renal function and urine output. Defer to primary an ID for the sacral wound.
--- NOTE | 2021-02-11 13:16 | P.DS ---
Providers Date of admission: 02/05/21 21:43 Expected date of discharge: 02/11/21 Attending physician: Kristina Gunn Consults: 02/05/21 22:22 Consult Physician Routine Consulting Provider: Ashley Pulido Consult Reason/Comments: Acute on chronic renal failure Do you want consulting provider notified?: Yes 02/07/21 18:37 Consult Physician Routine Consulting Provider: Carolina Fitzpatrick Consult Reason/Comments: sepsis Do you want consulting provider notified?: Yes Primary care physician: Margarito Mariano Hospital Course: Final diagnosis Acute urinary tract infection with sepsis and E. coli, present on admission, related to chronic indwelling Black catheter Change in mental status, acute on chronic metabolic encephalopathy secondary to sepsis Severe hypokalemia Increased white blood count secondary to sepsis Thrombocytopenia anemia, normocytic anemia of chronic disease Hyponatremia Acute renal failure with acute tubular necrosis Chronic kidney disease stage III, baseline Increased ALT, AST possibly secondary sepsis secondary to E. coli History of dementia hypothyroidism History of prostate cancer history of benign prostatic hypertrophy History of macular degeneration History of adenoidectomy Remote history of nicotine dependence Full code Discharge disposition Patient is being discharged in a stable condition with guarded prognosis to [facility]. Patient will follow-up with Dr. Mariano upon discharge. Patient will continue with a short course of oral antibiotics in the form of Ceftin 500 mg twice daily for the next 7 days and then may discontinue. Patient will also need repeat labs to monitor kidney functions and electrolytes in the outpatient setting. Patient to follow up with endocrine outpatient. Total time taken is greater than 35 minutes. Hospital course This is an 85-year-old male who was recently admitted with acute urinary tract infection with sepsis secondary to E. coli and is being closely monitored. Nephrology along with infectious disease following. Patient is maintained on IV ceftriaxone and will continue at this time as original cultures finalized showing E. coli. Repeat urinalysis was done and cultures are pending. Most recent repeat blood cultures have remained negative. Patient's kidney functions improving and current creatinine today is 1.2 with a BUN of 41, and potassium replacement per protocol was done yesterday and repeat potassium today is 4.6. Sodium is elevated at 146 and will transition IV fluids to D5 and water and will repeat a.m. labs. Magnesium found to be 1.6 and will replace per protocol and repeat magnesium level as well. 02/11/2021 Patient is seen and evaluated and follow-up with no acute overnight issues. Patient did have a urinary tract infection with sepsis with cultures finalizing showing E. coli and was maintained on IV ceftriaxone and will continue with oral Ceftin 500 mg twice daily for the next 7 days and then may discontinue. Recommend wound care nurse to evaluate mid thoracic region of his back along with underneath the right buttock area as well as bilateral heels. Mid thoracic back appears to be irritated from where the patient lays on a mattress pad and rubs that area throughout the day. The buttock area appears to be a possible deep tissue injury and the patient has been scratching with a brief rubs at that area with no signs of redness or swelling or drainage noted. Recommend to keep the heels offloaded while at rest. Continue to hold diuretics at this time. Continue to encourage oral intake and free water intake. Indwelling Black dany ter has been replaced. Currently no reports of chest pain, shortness of breath, or palpitations. Patient is afebrile. No reports of nausea or vomiting and patient is tolerating diet. Patient will be returning to [facility] today. Guarded prognosis. On exam vital signs are stable. Cardio S1, S2 are muffled. Respiratory shows diminished breath sounds at the bases with a few scattered rhonchi noted. Abdomen is soft and nontender. Nervous system shows mild diffuse weakness. Please refer to medication reconciliation sheet for a list of medications. Patient Condition at Discharge: Stable Plan - Discharge Summary Discharge Rx Participant: No New Discharge Prescriptions: New Darbepoetin Levy [Aranesp] 40 mcg SQ Q7D syringe Hydrocortisone [Cortef] 10 mg PO BID #0 tab Cefuroxime Axetil [Ceftin] 500 mg PO BID 7 Days #14 tab Continue Topiramate [Topamax] 25 mg PO BID Levothyroxine Sodium [Synthroid] 125 mcg PO DAILY Prostat (Unknown Strength) 30 ml PO BID Multivitamins, Thera [Multivitamin (formulary)] 1 tab PO HS Pantoprazole [Protonix] 40 mg PO DAILY Benzocaine [Anbesol] 1 applic MUCOUS MEM TID Erythromycin Ophth Oint [Romycin Ophth Oint] 1 strip BOTH EYES BID Sennosides [Senna] 17.2 mg PO HS Atorvastatin [Lipitor] 40 mg PO HS@2000 Acetaminophen Tab [Tylenol] 650 mg PO Q6H PRN PRN Reason: Fever And/ Or Pain LORazepam [Ativan] 0.5 mg PO Q6H PRN #6 tab PRN Reason: Anxiety LORazepam [Ativan] 0.5 mg PO HS@1999 #3 tab Sertraline [Zoloft] 100 mg PO DAILY@0700 Potassium Chloride ER [K-Dur 10] 20 meq PO DAILY polyethylene glycoL 3350 [Polyethylene Glycol 3350] 17 gm PO MOWEFR Melatonin 6 mg PO HS PRN PRN Reason: Insomnia Discontinued Hydrocortisone 20 mg PO DAILY Hydrocortisone [Cortef] 10 mg PO HS amLODIPine [Norvasc] 5 mg PO HS@1999 Furosemide [Lasix] 60 mg PO BID Discharge Medication List Topiramate [Topamax] 25 mg PO BID 03/01/20 [History] Levothyroxine Sodium [Synthroid] 125 mcg PO DAILY 09/09/20 [History] Multivitamins, Thera [Multivitamin (formulary)] 1 tab PO HS 09/30/20 [History] Pantoprazole [Protonix] 40 mg PO DAILY 09/30/20 [History] Prostat (Unknown Strength) 30 ml PO BID 09/30/20 [History] Acetaminophen Tab [Tylenol] 650 mg PO Q6H PRN 02/06/21 [History] Atorvastatin [Lipitor] 40 mg PO HS@199902/06/21 [History] Benzocaine [Anbesol] 1 applic MUCOUS MEM TID 02/06/21 [History] Erythromycin Ophth Oint [Romycin Ophth Oint] 1 strip BOTH EYES BID 02/06/21 [History] Melatonin 6 mg PO HS PRN 02/06/21 [History] Potassium Chloride ER [K-Dur 10] 20 meq PO DAILY 02/06/21 [History] Sennosides [Senna] 17.2 mg PO HS 02/06/21 [History] Sertraline [Zoloft] 100 mg PO DAILY@0700 02/06/21 [History] polyethylene glycoL 3350 [Polyethylene Glycol 3350] 17 gm PO MOWEFR 02/06/21 [History] Cefuroxime Axetil [Ceftin] 500 mg PO BID 7 Days #14 tab 02/11/21 [Rx] Darbepoetin Levy [Aranesp] 40 mcg SQ Q7D syringe 02/11/21 [Rx] Hydrocortisone [Cortef] 10 mg PO BID #0 tab 02/11/21 [Rx] LORazepam [Ativan] 0.5 mg PO HS@2000 #3 tab 02/11/21 [Rx] LORazepam [Ativan] 0.5 mg PO Q6H PRN #6 tab 02/11/21 [Rx] Follow up Appointment(s)/Referral(s): Margarito Mariano MD [Primary Care Provider] - 1-2 days Benedicto Esposito MD [REFERRING] - 1 Week Ambulatory/Diagnostic Orders: Complete Blood Count w/diff [LAB.AMB] Time Frame: 3 Days, Location: None Selected Patient Instructions/Handouts: Urinary Tract Infection in Men (DC), Chronic Kidney Disease (DC), Anemia (DC) Activity/Diet/Wound Care/Special Instructions: Patient is going to [facility] as tolerated Continue with oral Ceftin 500 mg twice daily for the next 7 days and then may discontinue Recommend repeat labs of CBC/BMP/magnesium Follow-up endocrinology outpatient Continue to hold diuretics Continue with wound care of bilateral heels keep them elevated off the bed Patient will need wound care nurse evaluation of the mid back irritated area at the level of the bed pad where the patient rubs persistently along with under the right buttock appears to be a developing deep tissue injury from incontinence and brief along with patient irritating the area Continue with increasing activity and getting up out of the bed more often Continue to encourage oral intake Continue with encouraging fluids and water Follow-up with primary care upon discharge Discharge Disposition: TRANSFER TO SNF/ECF
--- NOTE | 2021-02-11 18:08 | PN ---
PROGRESS NOTE DATE OF SERVICE: 02/11/2021 REASON FOR FOLLOWUP: E coli UTI and bacteremia. INTERVAL HISTORY: Patient is currently afebrile. The patient is breathing comfortably. The patient remains to be pleasantly confused and wants to get out of here. No chest pain. No cough. No abdominal pain. No diarrhea. PHYSICAL EXAMINATION: Blood pressure 134/57, pulse of 53, temperature 97.7. He is 98% on room air. General description: The patient is an elderly male lying in bed in no distress. Respiratory system: Unlabored breathing. Clear to auscultation anteriorly. Heart S1, S2. Regular rate and rhythm. ABDOMEN: Soft, no tenderness. LABS: BUN of 29, creatinine 1.17. DIAGNOSTIC IMPRESSION AND PLAN: Patient with E coli UTI and bacteremia. Repeat blood and urine cultures have been negative. Patient is on Rocephin transition to short course of oral Ceftin on discharge to finish a 2 week course of therapy. Continue supportive care. MMODL / IJN: [id number] /
== END 2021-02-11 15:19 | DRG 698 ==
LOC: EC 18:57 → 3SCARD 21:43 → 4SSUR 22:32
PROVIDERS: ADMIT Hospitalist; ATTEND Hospitalist
DX: T83.511A Infection and inflammatory reaction due to indwelling urethral catheter, initial encounter (principal); A41.51 Sepsis due to Escherichia coli [E. coli]; G93.41 Metabolic encephalopathy; R65.20 Severe sepsis without septic shock; N17.0 Acute kidney failure with tubular necrosis; N13.8 Other obstructive and reflux uropathy; E87.2 Acidosis; E87.1 Hypo-osmolality and hyponatremia; E87.0 Hyperosmolality and hypernatremia; Z16.24 Resistance to multiple antibiotics; D63.0 Anemia in neoplastic disease; E03.9 Hypothyroidism, unspecified; D69.6 Thrombocytopenia, unspecified; E87.6 Hypokalemia; F03.90 Unspecified dementia, unspecified severity, without behavioral disturbance, psychotic disturbance, mood disturbance, and anxiety; H35.30 Unspecified macular degeneration; I12.9 Hypertensive chronic kidney disease with stage 1 through stage 4 chronic kidney disease, or unspecified chronic kidney disease; N18.32 Chronic kidney disease, stage 3b; N39.0 Urinary tract infection, site not specified; N40.1 Benign prostatic hyperplasia with lower urinary tract symptoms; Z79.890 Hormone replacement therapy; Z79.899 Other long term (current) drug therapy; Z82.3 Family history of stroke; Z80.0 Family history of malignant neoplasm of digestive organs; Z87.440 Personal history of urinary (tract) infections; Z85.46 Personal history of malignant neoplasm of prostate; Z96.1 Presence of intraocular lens; Z87.891 Personal history of nicotine dependence; D63.1 Anemia in chronic kidney disease
CPT/HCPCS: 36415; 71045; 76770; 80048; 80053; 81001; 83605; 83735; 85025; 85610; 85730; 87040; 87077; 87086; 87186; 87635; 93005; 96365; 99285